=== PATIENT | female | born 1970 | race Caucasian/White ===

== ENCOUNTER → 2016-11-10 | Outpatient (CLI) | payer OTHER ==
[~2016-11-10] MED LIST: /FAMO2TA PO; /HYDR10T NG; /QUET10TA PO; ABIL2TAB PO; ABIL5TAB5 PO; ALBU17IN INH; ALDA50TA2 PO; AMLO10TA2 PO; AMLO25TA PO; AMLO5CAP PO; AMLODOPINE PO; ARTI99.0 OU; ARTIDRO OU; ARTISOL10 OP; ASPI81TA85 PO; ATEN100T PO; AUGM875T27 PO; BENA PO; BUSP10TA PO; BUSP15TA47 PO; BUSP30TA PO; BUSPAR PO; CARA1TAB2 PO; CELE10TA PO; CIPR500T3 PO; CLAR10CA3 PO; CLOTCRE3 TOP; ECOT81TA PO; EFFE150C PO; EFFE37.527 PO; EFFEXOR XR PO; FAMO1TAB11 PO; FAMO20TA PO; FAMO40TA3 PO; FERR325T3 PO; FLON0.054; HUMA100I3 SC; HYDR-3363 PO; HYDR25T PO; INSUHUMDS SC; INSULADS SC; INSULANT SC; INVE156I IM; INVO300T PO; IRON65TA PO; JANU100T PO; L-ME15TA5 PO; LEVOCETIRIZINE PO; LEVOTAB10 PO; LISI10TA4 PO; LOPR1TAB6 PO; LORA10TA2 PO; Lamictal PO; METF-415 PO; METF1000 PO; MODA100T13 PO; MULTCAP PO; MULTTAB4 PO; NAPR500T2 PO; NEUR300C PO; NEUR600T PO; NORA-BE PO; NORCOBULK PO; NYAM10003 EXT; OMEP40CA2 PO; OYSCTAB PO; PANT40TA2 PO; PEPC1TAB4 PO; QUET5TAB PO; RANI15TA PO; SPIR50TA2 PO; TAB-TAB PO; TEKT300T PO; TENO1TAB5 PO; TRAZ100T4 PO; TRAZ50TA4 PO; VENL75CA PO; VENTAER INH; VIBRYD PO; VIIB40TA PO; VIST25CA PO; VIST50CA PO; WELLTAB38 PO; ZYRT10CA PO
[2016-11-10 10:49] LABS: MEAN CORPUSCULAR HEMOGLOBIN 29.5 pg (27.0-33.0); MEAN CORPUSCULAR HGB CONC 34.4 g/dl (32.0-36.5); MEAN CORPUSCULAR VOLUME 85.9 fl (80.0-96.0); RED CELL DISTRIBUTION WIDTH 12.9 % (11.5-14.5); WHITE BLOOD COUNT 6.6 K/mm3 (4.0-10.0)
[2016-11-10 11:20] LABS: ALBUMIN 3.4 GM/DL (3.2-5.2); ALBUMIN/GLOBULIN RATIO 1.17 (1.00-1.93); ALKALINE PHOSPHATASE 75 U/L (45-117); ALT/SGPT 31 U/L (12-78); ANION GAP 9 MEQ/L (8-16); AST/SGOT 18 U/L (15-37); BILIRUBIN,TOTAL 0.4 MG/DL (0.2-1.0); BLOOD UREA NITROGEN 8 MG/DL (7-18); CALCIUM LEVEL 8.5 MG/DL (8.5-10.1); CARBON DIOXIDE LEVEL 26 MEQ/L (21-32); CHLORIDE LEVEL 108 MEQ/L (98-107); CHOLESTEROL LEVEL 178 MG/DL (<200); CREATININE FOR GFR 0.58 MG/DL (0.55-1.02); GLOMERULAR FILTRATION RATE > 60.0 (>58); GLUCOSE, FASTING 99 MG/DL (70-105); SODIUM LEVEL 143 MEQ/L (136-145); TOTAL PROTEIN 6.3 GM/DL (6.4-8.2); TRIGLYCERIDES LEVEL 60 MG/DL (<150)
== END ==
LOC: M LAB 09:53
PROVIDERS: ATTEND Nurse Practitioner Family
DX: D64.9 Anemia, unspecified (principal); E11.9 Type 2 diabetes mellitus without complications; F32.9 Major depressive disorder, single episode, unspecified; Z13.220 Encounter for screening for lipoid disorders

== ENCOUNTER → 2016-12-03 | Outpatient (REF) | payer OTHER, MEDICAID | LOC: M LAB REF 09:20 | PROVIDERS: ATTEND Physician Assistant | DX: R31.9 Hematuria, unspecified (principal) ==

== ENCOUNTER → 2017-01-04 | Outpatient (CLI) | payer OTHER, MEDICAID ==
[2017-01-04 11:11] LABS: ANION GAP 7 MEQ/L (8-16); BLOOD UREA NITROGEN 11 MG/DL (7-18); CALCIUM LEVEL 8.5 MG/DL (8.5-10.1); CARBON DIOXIDE LEVEL 29 MEQ/L (21-32); CHLORIDE LEVEL 106 MEQ/L (98-107); CREATININE FOR GFR 0.76 MG/DL (0.55-1.02); GLOMERULAR FILTRATION RATE > 60.0 (>58); GLUCOSE, FASTING 116 MG/DL (70-105); POTASSIUM SERUM 3.7 MEQ/L (3.5-5.1); SODIUM LEVEL 142 MEQ/L (136-145)
== END ==
LOC: M LAB 09:45
PROVIDERS: ATTEND Nurse Practitioner Family
DX: E11.9 Type 2 diabetes mellitus without complications (principal); E03.9 Hypothyroidism, unspecified; E55.9 Vitamin D deficiency, unspecified

== ENCOUNTER → 2017-04-10 | Outpatient (REF) | payer OTHER, MEDICAID ==
[~2017-04-10] MED LIST changes: +ABIL1TAB11 PO; -ABIL5TAB5 PO; -AUGM875T27 PO; +AUGM875T28 PO; -HYDR25T PO; +TRAZ-136 PO; -TRAZ100T4 PO; +TRAZ50TA11 PO; -TRAZ50TA4 PO
[2017-04-10 13:20] LABS: ALBUMIN 3.4 GM/DL (3.2-5.2); ALBUMIN/GLOBULIN RATIO 1.06 (1.00-1.93); ALKALINE PHOSPHATASE 63 U/L (45-117); ALT/SGPT 21 U/L (12-78); ANION GAP 7 MEQ/L (8-16); AST/SGOT 6 U/L (15-37); BILIRUBIN,TOTAL 0.4 MG/DL (0.2-1.0); BLOOD UREA NITROGEN 9 MG/DL (7-18); CALCIUM LEVEL 8.8 MG/DL (8.5-10.1); CARBON DIOXIDE LEVEL 30 MEQ/L (21-32); CHLORIDE LEVEL 105 MEQ/L (98-107); CREATININE FOR GFR 0.79 MG/DL (0.55-1.02); GLOMERULAR FILTRATION RATE > 60.0 (>58); GLUCOSE, FASTING 140 MG/DL (70-105); POTASSIUM SERUM 3.6 MEQ/L (3.5-5.1); SODIUM LEVEL 142 MEQ/L (136-145); TOTAL PROTEIN 6.6 GM/DL (6.4-8.2)
== END ==
LOC: M LAB REF 12:01
PROVIDERS: ATTEND Nurse Practitioner Family
DX: E11.9 Type 2 diabetes mellitus without complications (principal)

== ENCOUNTER → 2017-10-17 | Outpatient (REF) | payer OTHER, MEDICAID ==
[2017-10-17 13:43] LABS: MALB URINE SIEMENS 21.1 MG/L; MAU/CREAT RATIO 4.5 MCG/MG (0.0-30.0)
[2017-10-17 14:26] LABS: ESTIMATED AVERAGE GLUCOSE 140 MG/DL (60-110); HEMOGLOBIN A1c 6.5 %
== END ==
LOC: M LAB REF 11:59
DX: E11.9 Type 2 diabetes mellitus without complications (principal)
CPT/HCPCS: 84443

== ENCOUNTER → 2018-01-16 | Outpatient (REF) | payer OTHER, MEDICAID ==
[2018-01-16 14:42] LABS: ESTIMATED AVERAGE GLUCOSE 134 MG/DL (60-110); HEMOGLOBIN A1c 6.3 %
== END ==
LOC: M LAB REF 12:18
DX: E11.9 Type 2 diabetes mellitus without complications (principal)

== ENCOUNTER 2018-04-08 10:51 | Outpatient (RCR) | payer OTHER | END 2018-04-16 | LOC: M PT 10:51 | DX: Z51.89 Encounter for other specified aftercare (principal); M25.512 Pain in left shoulder; M25.562 Pain in left knee | CPT/HCPCS: 97110 ==

== ENCOUNTER → 2018-04-08 | Outpatient (REF) | payer OTHER ==
[2018-04-08 13:40] LABS: MALB URINE SIEMENS 33.6 MG/L; MAU/CREAT RATIO 6.8 MCG/MG (0.0-30.0)
[2018-04-08 14:00] LABS: ESTIMATED AVERAGE GLUCOSE 154 MG/DL (60-110)
== END ==
LOC: M LAB REF 12:12
DX: E11.9 Type 2 diabetes mellitus without complications (principal)

== ENCOUNTER 2018-04-17 14:29 | Outpatient (RCR) | payer OTHER | END 2018-05-17 | LOC: M PT 04-24 14:21 | DX: Z51.89 Encounter for other specified aftercare (principal); M25.562 Pain in left knee; M25.512 Pain in left shoulder | CPT/HCPCS: 97110 ==

== ENCOUNTER → 2018-06-25 | Outpatient (REF) | payer OTHER ==
[2018-06-25 17:35] LABS: CHLAMYDIA DNA AMPLIFICATION NEGATIVE (NEGATIVE); GC DNA AMPLIFICATION NEGATIVE (NEGATIVE)
== END ==
LOC: M SFHCWAGY 15:44
DX: Z11.3 Encounter for screening for infections with a predominantly sexual mode of transmission (principal)

== ENCOUNTER → 2018-06-25 | Outpatient (REF) | payer OTHER ==
[2018-06-27 14:15] LABS: HPV HYBRID CAPTURE II Negative (Negative)
== END ==
LOC: M SFHCWAGY 12:15
DX: Z12.4 Encounter for screening for malignant neoplasm of cervix (principal)

== ENCOUNTER → 2018-06-25 | Outpatient (CLI) | payer OTHER | LOC: M WHC 11:24 | DX: Z12.31 Encounter for screening mammogram for malignant neoplasm of breast (principal) | CPT/HCPCS: 77067 ==

== ENCOUNTER 2018-06-27 14:44 | Emergency (ER) | payer OTHER, MEDICAID ==
[2018-06-27 16:31] LABS: HEMOGLOBIN 13.3 g/dl (12.0-15.5); MEAN CORPUSCULAR HEMOGLOBIN 29.9 pg (27.0-33.0); MEAN CORPUSCULAR HGB CONC 34.1 g/dl (32.0-36.5); MEAN CORPUSCULAR VOLUME 87.6 fl (80.0-96.0); PLATELET COUNT, AUTOMATED 329 10^3/uL (150-450); RED BLOOD COUNT 4.45 10^6/uL (4.00-5.40); RED CELL DISTRIBUTION WIDTH 12.5 % (11.5-14.5); WHITE BLOOD COUNT 9.4 10^3/uL (4.0-10.0)
[2018-06-27 16:49] LABS: ANION GAP 9 MEQ/L (8-16); BLOOD UREA NITROGEN 8 MG/DL (7-18); CALCIUM LEVEL 9.3 MG/DL (8.5-10.1); CARBON DIOXIDE LEVEL 29 MEQ/L (21-32); CHLORIDE LEVEL 102 MEQ/L (98-107); CREATININE FOR GFR 0.74 MG/DL (0.55-1.30); GLOMERULAR FILTRATION RATE > 60.0 (>58); GLUCOSE, FASTING 109 MG/DL (70-100); POTASSIUM SERUM 3.2 MEQ/L (3.5-5.1); SODIUM LEVEL 140 MEQ/L (136-145)
[2018-06-27] MEDS: POTASSIUM CHLORIDE 10 MEQ SR TABLET PO (17:09)
== END 2018-06-27 17:11 | disposition home or self-care (01) ==
LOC: M ED 14:44
DX: E87.6 Hypokalemia (principal); R20.2 Paresthesia of skin; J45.909 Unspecified asthma, uncomplicated; E11.9 Type 2 diabetes mellitus without complications; E07.9 Disorder of thyroid, unspecified; G47.33 Obstructive sleep apnea (adult) (pediatric); K58.9 Irritable bowel syndrome, unspecified; Z88.1 Allergy status to other antibiotic agents; Z88.8 Allergy status to other drugs, medicaments and biological substances; Z88.2 Allergy status to sulfonamides; Z79.4 Long term (current) use of insulin; Z79.890 Hormone replacement therapy; Z79.899 Other long term (current) drug therapy
CPT/HCPCS: 72110

== ENCOUNTER → 2018-06-30 | Outpatient (REF) | payer OTHER ==
[2018-06-30 22:07] LABS: APPEARANCE, URINE HAZY (CLEAR); BACTERIA, URINE AUTO NEGATIVE (NEGATIVE); BILIRUBIN, URINE AUTO NEGATIVE (NEGATIVE); BLOOD, URINE BLOOD NEGATIVE (NEGATIVE); COLOR, URINE YELLOW (YELLOW); GLUCOSE, URINE (UA) AUTO 3+ mg/dL (NEGATIVE); KETONE, URINE AUTO NEGATIVE (NEGATIVE); LEUKOCYTE ESTERASE, URINE AUTO NEGATIVE (NEGATIVE); MUCUS, URINE SMALL (NEGATIVE); NITRITE, URINE AUTO NEGATIVE (NEGATIVE); PROTEIN, URINE AUTO NEGATIVE (NEGATIVE); RBC, URINE AUTO 1 /HPF (0-3); SPECIFIC GRAVITY URINE AUTO 1.029 (1.002-1.035); SQUAMOUS EPITHELIAL CELL UR AU 6 /HPF (0-6); UROBILINOGEN, URINE AUTO 0.2 mg/dL (0.0-2.0); WBC, URINE AUTO 2 /HPF (0-3)
== END ==
LOC: M LAB REF 10:32
DX: N39.0 Urinary tract infection, site not specified (principal)

== ENCOUNTER 2018-07-08 13:33 | Inpatient (IN) | payer MEDICAID, OTHER ==
[2018-07-08 14:36] LABS: HEMATOCRIT 39.5 % (36.0-47.0); HEMOGLOBIN 13.7 g/dl (12.0-15.5); MEAN CORPUSCULAR HEMOGLOBIN 29.7 pg (27.0-33.0); MEAN CORPUSCULAR HGB CONC 34.7 g/dl (32.0-36.5); MEAN CORPUSCULAR VOLUME 85.5 fl (80.0-96.0); PLATELET COUNT, AUTOMATED 365 10^3/uL (150-450); RED BLOOD COUNT 4.62 10^6/uL (4.00-5.40); RED CELL DISTRIBUTION WIDTH 12.3 % (11.5-14.5)
[2018-07-08 14:48] LABS: AMPHETAMINES LEVEL URINE NEGATIVE (NEGATIVE); BARBITURATES URINE NEGATIVE (NEGATIVE); BENZODIAZEPINES URINE NEGATIVE (NEGATIVE); CANNABINOIDS URINE NEGATIVE (NEGATIVE); COCAINE METABOLITE URINE NEGATIVE (NEGATIVE); METHADONE URINE NEGATIVE (NEGATIVE); OPIATES URINE NEGATIVE (NEGATIVE); PHENCYCLIDINE URINE NEGATIVE (NEGATIVE)
[2018-07-08 15:03] LABS: CONTROL LINE HCG INT CTR LINE PRESENT; HCG, SERUM QUALITATIVE NEGATIVE (NEGATIVE)
[2018-07-08 15:04] LABS: ALBUMIN 3.9 GM/DL (3.2-5.2); ALBUMIN/GLOBULIN RATIO 1.18 (1.00-1.93); ALKALINE PHOSPHATASE 69 U/L (45-117); ALT/SGPT 26 U/L (12-78); ANION GAP 8 MEQ/L (8-16); AST/SGOT 13 U/L (7-37); BILIRUBIN,DIRECT 0.2 MG/DL (0.0-0.2); BILIRUBIN,TOTAL 0.5 MG/DL (0.2-1.0); BLOOD UREA NITROGEN 7 MG/DL (7-18); CALCIUM LEVEL 9.6 MG/DL (8.5-10.1); CARBON DIOXIDE LEVEL 29 MEQ/L (21-32); CHLORIDE LEVEL 103 MEQ/L (98-107); CREATININE FOR GFR 0.76 MG/DL (0.55-1.30); GLOMERULAR FILTRATION RATE > 60.0 (>58); GLUCOSE, FASTING 115 MG/DL (70-100); POTASSIUM SERUM 3.3 MEQ/L (3.5-5.1); SODIUM LEVEL 140 MEQ/L (136-145); TOTAL PROTEIN 7.2 GM/DL (6.4-8.2)
[2018-07-08 15:10] LABS: ETHYL ALCOHOL (ETHANOL) < 0.003 % (0.000-0.010)
[2018-07-08 15:10] LABS: ACETAMINOPHEN LEVEL < 2.0 UG/ML (10.0-30.0); SALICYLATE LEVEL < 1.7 MG/DL (5.0-30.0)
[2018-07-08] MEDS: POTASSIUM CHLORIDE 10 MEQ SR TABLET PO (16:16)
[2018-07-08] MEDS ORDERED: MOM 30ML SUSPENSION UDC PO (20:00)
[2018-07-08] MEDS ORDERED: MAALOX 30 ML SUSP *UDC PO (20:00)
[2018-07-08] MEDS: NYSTATIN 100,000 UNITS/GM TOPICAL PWD 15 GM TOP (21:00)
[2018-07-08] MEDS ORDERED: TOUJEO 300 UNIT/ML SC (21:00)
[2018-07-08] MEDS: KETOCONAZOLE 2% CREAM EXT (21:00)
[2018-07-08] MEDS: DEXTRAN/HYPROMELLOSE OPHTH SOLN 15 ML(GENTEAL TEARS) OU (21:00)
[2018-07-08] MEDS: OMEGA-3 1000MG CAPSULE PO (21:00)
[2018-07-08] MEDS: GABAPENTIN 300 MG CAP PO (21:00)
[2018-07-09] MEDS: traZODone 50 MG TAB PO ×2 (01:14→22:54)
[2018-07-09] MEDS: ZIPRASIDONE 20MG CAPSULE (GEODON) PO ×2 (01:15→10:06)
[2018-07-09] MEDS: AUGMENTIN 875 MG TAB PO ×3 (01:15→22:52)
[2018-07-09] MEDS: CETIRIZINE (ZyrTEC) 10 MG TAB PO ×2 (01:15→22:58)
[2018-07-09] MEDS: ACETAMINOPHEN TAB 650MG DOSE (2X325MG) PO ×2 (01:15→22:56)
[2018-07-09 01:24] LABS: BEDSIDE GLUCOSE 141 MG/DL (70-105)
[2018-07-09] MEDS: LEVOTHYROXINE 88MCG TABLET (0.088 MG) PO (06:04)
[2018-07-09 06:35] LABS: BEDSIDE GLUCOSE 109 MG/DL (70-105)
[2018-07-09] MEDS: DEXTRAN/HYPROMELLOSE OPHTH SOLN 15 ML(GENTEAL TEARS) OU ×4 (09:56→22:55)
[2018-07-09] MEDS: FLUTICASONE PROP 0.05% NASAL SPRAY 16 GM (FLONASE) (09:56)
[2018-07-09] MEDS: GABAPENTIN 300 MG CAP PO ×2 (09:57→22:53)
[2018-07-09] MEDS: ASPIRIN 81 MG ENTERIC TAB PO (09:57)
[2018-07-09] MEDS: hydroCHLOROthiazide 25 MG TAB PO (09:57)
[2018-07-09] MEDS: FOLIC ACID 1 MG TAB PO (09:57)
[2018-07-09] MEDS: VITAMIN D 1,000 INTERNATIONAL UNITS TABLET PO (09:59)
[2018-07-09] MEDS: OMEGA-3 1000MG CAPSULE PO ×2 (09:59→22:55)
[2018-07-09] MEDS: METOPROLOL SUCC (TopROL XL) 50MG **XL** TAB PO (09:59)
[2018-07-09] MEDS: LOSARTAN 50 MG TAB PO (10:00)
[2018-07-09] MEDS ORDERED: ALBUTEROL 90 MCG/ACT 8GM HFA INHALER INH (10:00)
[2018-07-09] MEDS: NYSTATIN 100,000 UNITS/GM TOPICAL PWD 15 GM TOP ×2 (10:07→22:55)
[2018-07-09] MEDS: KETOCONAZOLE 2% CREAM EXT ×2 (10:07→22:54)
[2018-07-09] MEDS: FAMOTIDINE 20 MG TAB PO ×2 (10:10→22:53)
[2018-07-09] MEDS: LURASIDONE HCL 40 MG TAB (LATUDA) PO (17:09)
[2018-07-09] MEDS: LORazepam 1 MG TAB PO ×2 (22:53)
[2018-07-10] MEDS: LEVOTHYROXINE 88MCG TABLET (0.088 MG) PO (06:10)
[2018-07-10 06:42] LABS: BEDSIDE GLUCOSE 125 MG/DL (70-105)
[2018-07-10] MEDS: GABAPENTIN 300 MG CAP PO ×2 (09:23→21:36)
[2018-07-10] MEDS: OMEGA-3 1000MG CAPSULE PO ×2 (09:23→21:37)
[2018-07-10] MEDS: VITAMIN D 1,000 INTERNATIONAL UNITS TABLET PO (09:23)
[2018-07-10] MEDS: hydroCHLOROthiazide 25 MG TAB PO (09:23)
[2018-07-10] MEDS: AUGMENTIN 875 MG TAB PO ×2 (09:23→21:36)
[2018-07-10] MEDS: MONTELUKAST 10 MG TAB PO (09:23)
[2018-07-10] MEDS: FOLIC ACID 1 MG TAB PO (09:24)
[2018-07-10] MEDS: LURASIDONE HCL 40 MG TAB (LATUDA) PO ×2 (09:24→17:55)
[2018-07-10] MEDS: FAMOTIDINE 20 MG TAB PO ×2 (09:24→21:36)
[2018-07-10] MEDS: ASPIRIN 81 MG ENTERIC TAB PO (09:24)
[2018-07-10] MEDS: FERROUS SULFATE 325MG TAB PO (09:24)
[2018-07-10] MEDS: METOPROLOL SUCC (TopROL XL) 50MG **XL** TAB PO (09:24)
[2018-07-10] MEDS: LOSARTAN 50 MG TAB PO (09:24)
[2018-07-10] MEDS: DEXTRAN/HYPROMELLOSE OPHTH SOLN 15 ML(GENTEAL TEARS) OU ×4 (09:25→22:02)
[2018-07-10] MEDS: FLUTICASONE PROP 0.05% NASAL SPRAY 16 GM (FLONASE) (09:25)
[2018-07-10] MEDS: KETOCONAZOLE 2% CREAM EXT ×2 (09:25→21:37)
[2018-07-10] MEDS: NYSTATIN 100,000 UNITS/GM TOPICAL PWD 15 GM TOP ×2 (09:26→21:38)
[2018-07-10] MEDS: CETIRIZINE (ZyrTEC) 10 MG TAB PO (21:36)
[2018-07-10] MEDS: traZODone 50 MG TAB PO (21:37)
[2018-07-10] MEDS: TOUJEO 300 UNIT/ML SC (22:13)
[2018-07-11] MEDS: LEVOTHYROXINE 88MCG TABLET (0.088 MG) PO (06:13)
[2018-07-11 06:26] LABS: BEDSIDE GLUCOSE 124 MG/DL (70-105)
[2018-07-11] MEDS: DEXTRAN/HYPROMELLOSE OPHTH SOLN 15 ML(GENTEAL TEARS) OU ×4 (08:26→21:00)
[2018-07-11] MEDS: FAMOTIDINE 20 MG TAB PO ×2 (08:26→21:46)
[2018-07-11] MEDS: AUGMENTIN 875 MG TAB PO ×2 (08:26→21:45)
[2018-07-11] MEDS: FLUTICASONE PROP 0.05% NASAL SPRAY 16 GM (FLONASE) (08:26)
[2018-07-11] MEDS: VITAMIN D 1,000 INTERNATIONAL UNITS TABLET PO (08:26)
[2018-07-11] MEDS: LURASIDONE HCL 40 MG TAB (LATUDA) PO ×2 (08:27→17:42)
[2018-07-11] MEDS: MONTELUKAST 10 MG TAB PO (08:27)
[2018-07-11] MEDS: NYSTATIN 100,000 UNITS/GM TOPICAL PWD 15 GM TOP ×2 (08:27→21:00)
[2018-07-11] MEDS: LOSARTAN 50 MG TAB PO (08:28)
[2018-07-11] MEDS: hydroCHLOROthiazide 25 MG TAB PO (08:28)
[2018-07-11] MEDS: GABAPENTIN 300 MG CAP PO ×2 (08:28→21:45)
[2018-07-11] MEDS: ASPIRIN 81 MG ENTERIC TAB PO (08:28)
[2018-07-11] MEDS: KETOCONAZOLE 2% CREAM EXT ×2 (08:29→21:00)
[2018-07-11] MEDS: OMEGA-3 1000MG CAPSULE PO ×2 (08:29→21:45)
[2018-07-11] MEDS: FOLIC ACID 1 MG TAB PO (08:29)
[2018-07-11] MEDS: METOPROLOL SUCC (TopROL XL) 50MG **XL** TAB PO (08:30)
[2018-07-11] MEDS: TOUJEO 300 UNIT/ML SC ×2 (08:32→21:47)
[2018-07-11 08:53] LABS: ANION GAP 7 MEQ/L (8-16); BLOOD UREA NITROGEN 7 MG/DL (7-18); CALCIUM LEVEL 9.3 MG/DL (8.5-10.1); CARBON DIOXIDE LEVEL 29 MEQ/L (21-32); CHLORIDE LEVEL 105 MEQ/L (98-107); GLOMERULAR FILTRATION RATE > 60.0 (>58); GLUCOSE, FASTING 122 MG/DL (70-100); POTASSIUM SERUM 3.8 MEQ/L (3.5-5.1); SODIUM LEVEL 141 MEQ/L (136-145)
[2018-07-11 17:48] LABS: BEDSIDE GLUCOSE 145 MG/DL (70-105)
[2018-07-11] MEDS: CETIRIZINE (ZyrTEC) 10 MG TAB PO (21:45)
[2018-07-11] MEDS: DOXEPIN 25 MG CAP PO (21:45)
[2018-07-12] MEDS: ACETAMINOPHEN TAB 650MG DOSE (2X325MG) PO ×2 (02:50→12:38)
[2018-07-12] MEDS: LEVOTHYROXINE 88MCG TABLET (0.088 MG) PO (06:20)
[2018-07-12] MEDS: DEXTRAN/HYPROMELLOSE OPHTH SOLN 15 ML(GENTEAL TEARS) OU ×4 (09:49→20:26)
[2018-07-12] MEDS: NYSTATIN 100,000 UNITS/GM TOPICAL PWD 15 GM TOP ×2 (09:49→20:26)
[2018-07-12] MEDS: FLUTICASONE PROP 0.05% NASAL SPRAY 16 GM (FLONASE) (09:49)
[2018-07-12] MEDS: MONTELUKAST 10 MG TAB PO (09:50)
[2018-07-12] MEDS: FOLIC ACID 1 MG TAB PO (09:50)
[2018-07-12] MEDS: KETOCONAZOLE 2% CREAM EXT ×2 (09:50→20:26)
[2018-07-12] MEDS: hydroCHLOROthiazide 25 MG TAB PO (09:50)
[2018-07-12] MEDS: LOSARTAN 50 MG TAB PO (09:50)
[2018-07-12] MEDS: METOPROLOL SUCC (TopROL XL) 50MG **XL** TAB PO (09:50)
[2018-07-12] MEDS: AUGMENTIN 875 MG TAB PO ×2 (09:50→20:26)
[2018-07-12] MEDS: OMEGA-3 1000MG CAPSULE PO ×2 (09:50→20:27)
[2018-07-12] MEDS: FERROUS SULFATE 325MG TAB PO (09:51)
[2018-07-12] MEDS: VITAMIN D 1,000 INTERNATIONAL UNITS TABLET PO (09:51)
[2018-07-12] MEDS: FAMOTIDINE 20 MG TAB PO ×2 (09:51→20:26)
[2018-07-12] MEDS: GABAPENTIN 300 MG CAP PO ×2 (09:51→20:26)
[2018-07-12] MEDS: ASPIRIN 81 MG ENTERIC TAB PO (09:51)
[2018-07-12] MEDS: TOUJEO 300 UNIT/ML SC ×2 (10:41→20:31)
[2018-07-12 16:44] LABS: BEDSIDE GLUCOSE 142 MG/DL (70-105)
[2018-07-12] MEDS: LURASIDONE HCL 40 MG TAB (LATUDA) PO (17:46)
[2018-07-12] MEDS: CETIRIZINE (ZyrTEC) 10 MG TAB PO (20:25)
[2018-07-12] MEDS: DOXEPIN 25 MG CAP PO (20:25)
[2018-07-13] MEDS: LEVOTHYROXINE 88MCG TABLET (0.088 MG) PO (06:00)
[2018-07-13 06:34] LABS: BEDSIDE GLUCOSE 103 MG/DL (70-105)
[2018-07-13] MEDS: FOLIC ACID 1 MG TAB PO (09:56)
[2018-07-13] MEDS: METOPROLOL SUCC (TopROL XL) 50MG **XL** TAB PO (09:57)
[2018-07-13] MEDS: GABAPENTIN 300 MG CAP PO ×2 (09:57→20:02)
[2018-07-13] MEDS: VITAMIN D 1,000 INTERNATIONAL UNITS TABLET PO (09:57)
[2018-07-13] MEDS: MONTELUKAST 10 MG TAB PO (09:57)
[2018-07-13] MEDS: ASPIRIN 81 MG ENTERIC TAB PO (09:57)
[2018-07-13] MEDS: LOSARTAN 50 MG TAB PO (09:57)
[2018-07-13] MEDS: AUGMENTIN 875 MG TAB PO ×2 (09:57→20:02)
[2018-07-13] MEDS: FAMOTIDINE 20 MG TAB PO ×2 (09:57→20:02)
[2018-07-13] MEDS: hydroCHLOROthiazide 25 MG TAB PO (09:57)
[2018-07-13] MEDS: OMEGA-3 1000MG CAPSULE PO ×2 (09:57→20:02)
[2018-07-13] MEDS: FLUTICASONE PROP 0.05% NASAL SPRAY 16 GM (FLONASE) (09:58)
[2018-07-13] MEDS: NYSTATIN 100,000 UNITS/GM TOPICAL PWD 15 GM TOP ×2 (09:58→20:06)
[2018-07-13] MEDS: KETOCONAZOLE 2% CREAM EXT ×2 (09:58→20:06)
[2018-07-13] MEDS: TOUJEO 300 UNIT/ML SC ×2 (09:58→20:01)
[2018-07-13] MEDS: DEXTRAN/HYPROMELLOSE OPHTH SOLN 15 ML(GENTEAL TEARS) OU ×4 (09:58→20:05)
[2018-07-13] MEDS: FLUCONAZOLE 100 MG TAB PO (16:49)
[2018-07-13 17:26] LABS: BEDSIDE GLUCOSE 122 MG/DL (70-105)
[2018-07-13] MEDS: LURASIDONE HCL 40 MG TAB (LATUDA) PO (17:55)
[2018-07-13] MEDS: CETIRIZINE (ZyrTEC) 10 MG TAB PO (20:02)
[2018-07-13] MEDS: DOXEPIN 25 MG CAP PO (20:02)
[2018-07-13] MEDS: ACETAMINOPHEN TAB 650MG DOSE (2X325MG) PO (20:04)
[2018-07-14] MEDS: LEVOTHYROXINE 88MCG TABLET (0.088 MG) PO (05:56)
[2018-07-14 06:20] LABS: BEDSIDE GLUCOSE 108 MG/DL (70-105)
[2018-07-14] MEDS: GABAPENTIN 300 MG CAP PO ×2 (09:56→21:35)
[2018-07-14] MEDS: OMEGA-3 1000MG CAPSULE PO ×2 (09:56→21:36)
[2018-07-14] MEDS: VITAMIN D 1,000 INTERNATIONAL UNITS TABLET PO (09:56)
[2018-07-14] MEDS: FOLIC ACID 1 MG TAB PO (09:57)
[2018-07-14] MEDS: AUGMENTIN 875 MG TAB PO ×2 (09:57→21:35)
[2018-07-14] MEDS: ASPIRIN 81 MG ENTERIC TAB PO (09:57)
[2018-07-14] MEDS: FAMOTIDINE 20 MG TAB PO ×2 (09:57→21:36)
[2018-07-14] MEDS: MONTELUKAST 10 MG TAB PO (09:57)
[2018-07-14] MEDS: FERROUS SULFATE 325MG TAB PO (09:57)
[2018-07-14] MEDS: NYSTATIN 100,000 UNITS/GM TOPICAL PWD 15 GM TOP ×2 (09:58→21:34)
[2018-07-14] MEDS: FLUTICASONE PROP 0.05% NASAL SPRAY 16 GM (FLONASE) (09:58)
[2018-07-14] MEDS: KETOCONAZOLE 2% CREAM EXT ×2 (09:58→21:35)
[2018-07-14] MEDS: DEXTRAN/HYPROMELLOSE OPHTH SOLN 15 ML(GENTEAL TEARS) OU ×4 (09:58→21:35)
[2018-07-14] MEDS: TOUJEO 300 UNIT/ML SC ×2 (10:01→21:52)
[2018-07-14] MEDS: LOSARTAN 50 MG TAB PO (10:01)
[2018-07-14] MEDS: METOPROLOL SUCC (TopROL XL) 50MG **XL** TAB PO (10:02)
[2018-07-14] MEDS: hydroCHLOROthiazide 25 MG TAB PO (10:02)
[2018-07-14] MEDS: ACETAMINOPHEN TAB 650MG DOSE (2X325MG) PO (11:19)
[2018-07-14] MEDS: LURASIDONE HCL 40 MG TAB (LATUDA) PO (17:11)
[2018-07-14] MEDS: LORazepam 1 MG TAB PO (21:35)
[2018-07-14] MEDS: DOXEPIN 25 MG CAP PO (21:35)
[2018-07-14] MEDS: CETIRIZINE (ZyrTEC) 10 MG TAB PO (21:35)
[2018-07-15] MEDS: LEVOTHYROXINE 88MCG TABLET (0.088 MG) PO (06:10)
[2018-07-15 06:33] LABS: BEDSIDE GLUCOSE 134 MG/DL (70-105)
[2018-07-15] MEDS: ACETAMINOPHEN TAB 650MG DOSE (2X325MG) PO (06:58)
[2018-07-15] MEDS: KETOCONAZOLE 2% CREAM EXT ×2 (09:00→21:00)
[2018-07-15] MEDS: FLUTICASONE PROP 0.05% NASAL SPRAY 16 GM (FLONASE) (09:14)
[2018-07-15] MEDS: DEXTRAN/HYPROMELLOSE OPHTH SOLN 15 ML(GENTEAL TEARS) OU ×4 (09:14→21:00)
[2018-07-15] MEDS: GABAPENTIN 300 MG CAP PO ×2 (09:15→21:02)
[2018-07-15] MEDS: OMEGA-3 1000MG CAPSULE PO ×2 (09:15→21:02)
[2018-07-15] MEDS: NYSTATIN 100,000 UNITS/GM TOPICAL PWD 15 GM TOP ×2 (09:15→21:00)
[2018-07-15] MEDS: ASPIRIN 81 MG ENTERIC TAB PO (09:15)
[2018-07-15] MEDS: VITAMIN D 1,000 INTERNATIONAL UNITS TABLET PO (09:15)
[2018-07-15] MEDS: MONTELUKAST 10 MG TAB PO (09:15)
[2018-07-15] MEDS: LOSARTAN 50 MG TAB PO (09:15)
[2018-07-15] MEDS: AUGMENTIN 875 MG TAB PO (09:15)
[2018-07-15] MEDS: METOPROLOL SUCC (TopROL XL) 50MG **XL** TAB PO (09:16)
[2018-07-15] MEDS: FAMOTIDINE 20 MG TAB PO ×2 (09:16→21:02)
[2018-07-15] MEDS: FOLIC ACID 1 MG TAB PO (09:16)
[2018-07-15] MEDS: TOUJEO 300 UNIT/ML SC ×2 (09:24→21:06)
[2018-07-15] MEDS: hydroCHLOROthiazide 25 MG TAB PO (09:28)
[2018-07-15 16:57] LABS: BEDSIDE GLUCOSE 180 MG/DL (70-105)
[2018-07-15] MEDS: LURASIDONE HCL 40 MG TAB (LATUDA) PO (17:58)
[2018-07-15] MEDS: CETIRIZINE (ZyrTEC) 10 MG TAB PO (21:02)
[2018-07-15] MEDS: DOXEPIN 25 MG CAP PO (21:02)
[2018-07-15] MEDS: LORazepam 2 MG TAB PO (21:46)
[2018-07-15] MEDS ORDERED: hydrOXYzine 50 MG TAB PO (22:00)
[2018-07-16] MEDS: LEVOTHYROXINE 88MCG TABLET (0.088 MG) PO (05:46)
[2018-07-16] MEDS: ACETAMINOPHEN TAB 650MG DOSE (2X325MG) PO (05:46)
[2018-07-16 05:53] LABS: BEDSIDE GLUCOSE 144 MG/DL (70-105)
[2018-07-16] MEDS: hydrOXYzine 50 MG TAB PO ×2 (06:15→20:01)
[2018-07-16] MEDS: KETOCONAZOLE 2% CREAM EXT ×2 (09:00→21:00)
[2018-07-16] MEDS: FOLIC ACID 1 MG TAB PO (09:53)
[2018-07-16] MEDS: METOPROLOL SUCC (TopROL XL) 50MG **XL** TAB PO (09:54)
[2018-07-16] MEDS: GABAPENTIN 300 MG CAP PO ×2 (09:54→21:52)
[2018-07-16] MEDS: VITAMIN D 1,000 INTERNATIONAL UNITS TABLET PO (09:54)
[2018-07-16] MEDS: FERROUS SULFATE 325MG TAB PO (09:54)
[2018-07-16] MEDS: LOSARTAN 50 MG TAB PO (09:55)
[2018-07-16] MEDS: OMEGA-3 1000MG CAPSULE PO ×2 (09:55→21:52)
[2018-07-16] MEDS: ASPIRIN 81 MG ENTERIC TAB PO (09:55)
[2018-07-16] MEDS: MONTELUKAST 10 MG TAB PO (09:55)
[2018-07-16] MEDS: hydroCHLOROthiazide 25 MG TAB PO (09:55)
[2018-07-16] MEDS: NYSTATIN 100,000 UNITS/GM TOPICAL PWD 15 GM TOP ×2 (09:56→21:00)
[2018-07-16] MEDS: PILL CRUSHER/CUTTER 1 EACH XX ×2 (09:56→21:54)
[2018-07-16] MEDS: FAMOTIDINE 20 MG TAB PO ×2 (09:56→21:52)
[2018-07-16] MEDS: FLUTICASONE PROP 0.05% NASAL SPRAY 16 GM (FLONASE) (09:56)
[2018-07-16] MEDS: DEXTRAN/HYPROMELLOSE OPHTH SOLN 15 ML(GENTEAL TEARS) OU ×4 (09:56→21:52)
[2018-07-16] MEDS: TOUJEO 300 UNIT/ML SC ×2 (09:59→21:53)
[2018-07-16] MEDS: LURASIDONE HCL 40 MG TAB (LATUDA) PO (17:12)
[2018-07-16 17:14] LABS: BEDSIDE GLUCOSE 139 MG/DL (70-105)
[2018-07-16] MEDS: CETIRIZINE (ZyrTEC) 10 MG TAB PO (21:52)
[2018-07-16] MEDS: DOXEPIN 25 MG CAP PO (21:52)
[2018-07-17] MEDS: LEVOTHYROXINE 88MCG TABLET (0.088 MG) PO (05:09)
[2018-07-17] MEDS: ACETAMINOPHEN TAB 650MG DOSE (2X325MG) PO ×2 (05:09→23:31)
[2018-07-17 05:25] LABS: BEDSIDE GLUCOSE 153 MG/DL (70-105)
[2018-07-17] MEDS ORDERED: **PENDING PPD ENTRY XX (09:00)
[2018-07-17] MEDS: KETOCONAZOLE 2% CREAM EXT ×2 (09:00→21:00)
[2018-07-17] MEDS: MONTELUKAST 10 MG TAB PO (09:40)
[2018-07-17] MEDS: GABAPENTIN 300 MG CAP PO ×2 (09:40→21:59)
[2018-07-17] MEDS: LORazepam 1 MG TAB PO (09:41)
[2018-07-17] MEDS: hydroCHLOROthiazide 25 MG TAB PO (09:41)
[2018-07-17] MEDS: DEXTRAN/HYPROMELLOSE OPHTH SOLN 15 ML(GENTEAL TEARS) OU ×4 (09:42→21:58)
[2018-07-17] MEDS: PILL CRUSHER/CUTTER 1 EACH XX ×2 (09:42→21:57)
[2018-07-17] MEDS: FLUTICASONE PROP 0.05% NASAL SPRAY 16 GM (FLONASE) (09:42)
[2018-07-17] MEDS: FAMOTIDINE 20 MG TAB PO ×2 (09:42→21:58)
[2018-07-17] MEDS: FOLIC ACID 1 MG TAB PO (09:43)
[2018-07-17] MEDS: VITAMIN D 1,000 INTERNATIONAL UNITS TABLET PO (09:43)
[2018-07-17] MEDS: ASPIRIN 81 MG ENTERIC TAB PO (09:44)
[2018-07-17] MEDS: OMEGA-3 1000MG CAPSULE PO ×2 (09:44→21:57)
[2018-07-17] MEDS: METOPROLOL SUCC (TopROL XL) 50MG **XL** TAB PO (09:44)
[2018-07-17] MEDS: LOSARTAN 50 MG TAB PO (09:45)
[2018-07-17] MEDS: TOUJEO 300 UNIT/ML SC ×2 (09:48→21:59)
[2018-07-17] MEDS: NYSTATIN 100,000 UNITS/GM TOPICAL PWD 15 GM TOP ×2 (13:00→21:58)
[2018-07-17] MEDS ORDERED: TUBERCULIN PPD 5 UNITS/0.1 ML ID (15:15)
[2018-07-17] MEDS: TUBERCULIN PPD 5 UNITS/0.1 ML ID (16:29)
[2018-07-17] MEDS: hydrOXYzine 50 MG TAB PO ×2 (16:30→22:50)
[2018-07-17 16:42] LABS: BEDSIDE GLUCOSE 115 MG/DL (70-105)
[2018-07-17] MEDS: LURASIDONE 20 MG TAB (LATUDA) PO (18:05)
[2018-07-17] MEDS: CETIRIZINE (ZyrTEC) 10 MG TAB PO (21:58)
[2018-07-17] MEDS: DOXEPIN 25 MG CAP PO (21:59)
[2018-07-18] MEDS: LEVOTHYROXINE 88MCG TABLET (0.088 MG) PO (06:33)
[2018-07-18 06:37] LABS: BEDSIDE GLUCOSE 135 MG/DL (70-105)
[2018-07-18] MEDS: FLUTICASONE PROP 0.05% NASAL SPRAY 16 GM (FLONASE) (08:46)
[2018-07-18] MEDS: NYSTATIN 100,000 UNITS/GM TOPICAL PWD 15 GM TOP ×2 (08:46→21:52)
[2018-07-18] MEDS: FOLIC ACID 1 MG TAB PO (08:47)
[2018-07-18] MEDS: METOPROLOL SUCC (TopROL XL) 50MG **XL** TAB PO (08:47)
[2018-07-18] MEDS: hydroCHLOROthiazide 25 MG TAB PO (08:47)
[2018-07-18] MEDS: MONTELUKAST 10 MG TAB PO (08:47)
[2018-07-18] MEDS: GABAPENTIN 300 MG CAP PO ×2 (08:47→21:42)
[2018-07-18] MEDS: LOSARTAN 50 MG TAB PO (08:47)
[2018-07-18] MEDS: ASPIRIN 81 MG ENTERIC TAB PO (08:47)
[2018-07-18] MEDS: FERROUS SULFATE 325MG TAB PO (08:47)
[2018-07-18] MEDS: VITAMIN D 1,000 INTERNATIONAL UNITS TABLET PO (08:48)
[2018-07-18] MEDS: FAMOTIDINE 20 MG TAB PO ×2 (08:48→21:44)
[2018-07-18] MEDS: OMEGA-3 1000MG CAPSULE PO ×2 (08:48→21:43)
[2018-07-18] MEDS: TOUJEO 300 UNIT/ML SC ×2 (08:48→21:50)
[2018-07-18] MEDS: PILL CRUSHER/CUTTER 1 EACH XX (08:49)
[2018-07-18] MEDS: KETOCONAZOLE 2% CREAM EXT ×2 (08:49→21:00)
[2018-07-18] MEDS: DEXTRAN/HYPROMELLOSE OPHTH SOLN 15 ML(GENTEAL TEARS) OU ×4 (08:49→21:51)
[2018-07-18] MEDS: hydrOXYzine 50 MG TAB PO ×2 (15:43→21:47)
[2018-07-18 17:16] LABS: BEDSIDE GLUCOSE 147 MG/DL (70-105)
[2018-07-18] MEDS: LURASIDONE 20 MG TAB (LATUDA) PO (17:47)
[2018-07-18] MEDS: clonazePAM 0.5 MG TAB PO (21:42)
[2018-07-18] MEDS: DOXEPIN 25 MG CAP PO (21:46)
[2018-07-18] MEDS: CETIRIZINE (ZyrTEC) 10 MG TAB PO (21:47)
[2018-07-19] MEDS: LEVOTHYROXINE 88MCG TABLET (0.088 MG) PO (06:00)
[2018-07-19 06:06] LABS: BEDSIDE GLUCOSE 136 MG/DL (70-105)
[2018-07-19] MEDS: hydrOXYzine 50 MG TAB PO ×2 (06:29→15:18)
[2018-07-19] MEDS: hydroCHLOROthiazide 25 MG TAB PO (08:38)
[2018-07-19] MEDS: OMEGA-3 1000MG CAPSULE PO ×2 (08:38→20:48)
[2018-07-19] MEDS: FOLIC ACID 1 MG TAB PO (08:38)
[2018-07-19] MEDS: NYSTATIN 100,000 UNITS/GM TOPICAL PWD 15 GM TOP ×2 (08:38→20:49)
[2018-07-19] MEDS: FLUTICASONE PROP 0.05% NASAL SPRAY 16 GM (FLONASE) (08:38)
[2018-07-19] MEDS: PILL CRUSHER/CUTTER 1 EACH XX (08:38)
[2018-07-19] MEDS: DEXTRAN/HYPROMELLOSE OPHTH SOLN 15 ML(GENTEAL TEARS) OU ×4 (08:38→20:49)
[2018-07-19] MEDS: MONTELUKAST 10 MG TAB PO (08:39)
[2018-07-19] MEDS: ASPIRIN 81 MG ENTERIC TAB PO (08:39)
[2018-07-19] MEDS: FAMOTIDINE 20 MG TAB PO ×2 (08:39→20:46)
[2018-07-19] MEDS: LOSARTAN 50 MG TAB PO (08:39)
[2018-07-19] MEDS: VITAMIN D 1,000 INTERNATIONAL UNITS TABLET PO (08:39)
[2018-07-19] MEDS: GABAPENTIN 300 MG CAP PO ×2 (08:39→20:46)
[2018-07-19] MEDS: METOPROLOL SUCC (TopROL XL) 50MG **XL** TAB PO (08:39)
[2018-07-19] MEDS: TOUJEO 300 UNIT/ML SC ×2 (08:42→20:48)
[2018-07-19] MEDS: KETOCONAZOLE 2% CREAM EXT ×2 (08:45→20:48)
[2018-07-19] MEDS ORDERED: PPD DOCUMENTATION ENTRY MISC XX (10:00)
[2018-07-19] MEDS: PPD DOCUMENTATION ENTRY MISC XX (16:02)
[2018-07-19 17:03] LABS: BEDSIDE GLUCOSE 139 MG/DL (70-105)
[2018-07-19] MEDS: LURASIDONE 20 MG TAB (LATUDA) PO (17:55)
[2018-07-19] MEDS: clonazePAM 1 MG TAB PO (20:46)
[2018-07-19] MEDS: CETIRIZINE (ZyrTEC) 10 MG TAB PO (20:46)
[2018-07-20] MEDS: LEVOTHYROXINE 88MCG TABLET (0.088 MG) PO (06:09)
[2018-07-20] MEDS: ACETAMINOPHEN TAB 650MG DOSE (2X325MG) PO (06:20)
[2018-07-20] MEDS: hydrOXYzine 50 MG TAB PO (06:21)
[2018-07-20] MEDS: GABAPENTIN 300 MG CAP PO ×2 (09:12→21:21)
[2018-07-20] MEDS: FOLIC ACID 1 MG TAB PO (09:12)
[2018-07-20] MEDS: MONTELUKAST 10 MG TAB PO (09:12)
[2018-07-20] MEDS: LOSARTAN 50 MG TAB PO (09:13)
[2018-07-20] MEDS: ASPIRIN 81 MG ENTERIC TAB PO (09:13)
[2018-07-20] MEDS: VITAMIN D 1,000 INTERNATIONAL UNITS TABLET PO (09:13)
[2018-07-20] MEDS: PILL CRUSHER/CUTTER 1 EACH XX (09:13)
[2018-07-20] MEDS: METOPROLOL SUCC (TopROL XL) 50MG **XL** TAB PO (09:13)
[2018-07-20] MEDS: FAMOTIDINE 20 MG TAB PO ×2 (09:13→21:20)
[2018-07-20] MEDS: hydroCHLOROthiazide 25 MG TAB PO (09:13)
[2018-07-20] MEDS: FERROUS SULFATE 325MG TAB PO (09:13)
[2018-07-20] MEDS: OMEGA-3 1000MG CAPSULE PO ×2 (09:14→21:21)
[2018-07-20] MEDS: FLUTICASONE PROP 0.05% NASAL SPRAY 16 GM (FLONASE) (09:14)
[2018-07-20] MEDS: KETOCONAZOLE 2% CREAM EXT ×2 (09:14→21:00)
[2018-07-20] MEDS: DEXTRAN/HYPROMELLOSE OPHTH SOLN 15 ML(GENTEAL TEARS) OU ×4 (09:15→21:00)
[2018-07-20] MEDS: NYSTATIN 100,000 UNITS/GM TOPICAL PWD 15 GM TOP ×2 (09:15→21:22)
[2018-07-20] MEDS: TOUJEO 300 UNIT/ML SC ×2 (09:17→21:38)
[2018-07-20 16:59] LABS: BEDSIDE GLUCOSE 171 MG/DL (70-105)
[2018-07-20] MEDS: LURASIDONE 20 MG TAB (LATUDA) PO (18:05)
[2018-07-20] MEDS: clonazePAM 1 MG TAB PO (21:20)
[2018-07-20] MEDS: CETIRIZINE (ZyrTEC) 10 MG TAB PO (21:21)
[2018-07-21] MEDS: ACETAMINOPHEN TAB 650MG DOSE (2X325MG) PO (05:45)
[2018-07-21] MEDS: LEVOTHYROXINE 88MCG TABLET (0.088 MG) PO (05:45)
[2018-07-21] MEDS: VITAMIN D 1,000 INTERNATIONAL UNITS TABLET PO (08:31)
[2018-07-21] MEDS: DEXTRAN/HYPROMELLOSE OPHTH SOLN 15 ML(GENTEAL TEARS) OU ×4 (08:31→20:26)
[2018-07-21] MEDS: FLUTICASONE PROP 0.05% NASAL SPRAY 16 GM (FLONASE) (08:31)
[2018-07-21] MEDS: NYSTATIN 100,000 UNITS/GM TOPICAL PWD 15 GM TOP ×2 (08:31→20:26)
[2018-07-21] MEDS: FOLIC ACID 1 MG TAB PO (08:31)
[2018-07-21] MEDS: PILL CRUSHER/CUTTER 1 EACH XX (08:31)
[2018-07-21] MEDS: LOSARTAN 50 MG TAB PO (08:32)
[2018-07-21] MEDS: ASPIRIN 81 MG ENTERIC TAB PO (08:32)
[2018-07-21] MEDS: FAMOTIDINE 20 MG TAB PO ×2 (08:32→20:23)
[2018-07-21] MEDS: hydrOXYzine 50 MG TAB PO ×2 (08:32→20:24)
[2018-07-21] MEDS: hydroCHLOROthiazide 25 MG TAB PO (08:32)
[2018-07-21] MEDS: OMEGA-3 1000MG CAPSULE PO ×2 (08:32→20:22)
[2018-07-21] MEDS: GABAPENTIN 300 MG CAP PO ×2 (08:33→20:23)
[2018-07-21] MEDS: METOPROLOL SUCC (TopROL XL) 50MG **XL** TAB PO (08:33)
[2018-07-21] MEDS: MONTELUKAST 10 MG TAB PO (08:33)
[2018-07-21] MEDS: TOUJEO 300 UNIT/ML SC ×2 (08:37→20:32)
[2018-07-21] MEDS: KETOCONAZOLE 2% CREAM EXT ×2 (08:42→20:27)
[2018-07-21 12:20] LABS: KETONE, URINE AUTO RFX NEGATIVE (NEGATIVE); LEUKOCYTE ESTERASE UR AUTO RFX NEGATIVE (NEGATIVE); MUCUS, URINE RFX SMALL (NEGATIVE); NITRITE, URINE AUTO RFX NEGATIVE (NEGATIVE); RBC, URINE AUTO RFX 0 /HPF (0-3); SQUAM EPITHELIAL CELL UR AURFX 1 /HPF (0-6); WBC, URINE AUTO RFX 0 /HPF (0-3)
[2018-07-21 17:02] LABS: BEDSIDE GLUCOSE 123 MG/DL (70-105)
[2018-07-21] MEDS: LURASIDONE 20 MG TAB (LATUDA) PO (17:57)
[2018-07-21] MEDS: clonazePAM 1 MG TAB PO (20:22)
[2018-07-21] MEDS: CETIRIZINE (ZyrTEC) 10 MG TAB PO (20:22)
[2018-07-22] MEDS: ACETAMINOPHEN TAB 650MG DOSE (2X325MG) PO (05:51)
[2018-07-22] MEDS: hydrOXYzine 50 MG TAB PO (05:52)
[2018-07-22 05:56] LABS: BEDSIDE GLUCOSE 160 MG/DL (70-105)
[2018-07-22] MEDS: LEVOTHYROXINE 88MCG TABLET (0.088 MG) PO (05:59)
[2018-07-22] MEDS: PILL CRUSHER/CUTTER 1 EACH XX ×2 (08:11→20:13)
[2018-07-22] MEDS: OMEGA-3 1000MG CAPSULE PO ×2 (08:11→20:10)
[2018-07-22] MEDS: MONTELUKAST 10 MG TAB PO (08:11)
[2018-07-22] MEDS: FERROUS SULFATE 325MG TAB PO (08:12)
[2018-07-22] MEDS: hydroCHLOROthiazide 25 MG TAB PO (08:12)
[2018-07-22] MEDS: FLUTICASONE PROP 0.05% NASAL SPRAY 16 GM (FLONASE) (08:12)
[2018-07-22] MEDS: ASPIRIN 81 MG ENTERIC TAB PO (08:12)
[2018-07-22] MEDS: GABAPENTIN 300 MG CAP PO ×2 (08:12→20:11)
[2018-07-22] MEDS: VITAMIN D 1,000 INTERNATIONAL UNITS TABLET PO (08:12)
[2018-07-22] MEDS: FAMOTIDINE 20 MG TAB PO ×2 (08:12→20:11)
[2018-07-22] MEDS: FOLIC ACID 1 MG TAB PO (08:12)
[2018-07-22] MEDS: NYSTATIN 100,000 UNITS/GM TOPICAL PWD 15 GM TOP ×2 (08:12→20:12)
[2018-07-22] MEDS: DEXTRAN/HYPROMELLOSE OPHTH SOLN 15 ML(GENTEAL TEARS) OU ×4 (08:12→20:12)
[2018-07-22] MEDS: METOPROLOL SUCC (TopROL XL) 50MG **XL** TAB PO (08:13)
[2018-07-22] MEDS: LOSARTAN 50 MG TAB PO (08:13)
[2018-07-22] MEDS: TOUJEO 300 UNIT/ML SC ×2 (08:19→20:18)
[2018-07-22] MEDS: KETOCONAZOLE 2% CREAM EXT ×2 (08:19→20:11)
[2018-07-22 17:17] LABS: BEDSIDE GLUCOSE 143 MG/DL (70-105)
[2018-07-22] MEDS: LURASIDONE 20 MG TAB (LATUDA) PO (17:57)
[2018-07-22] MEDS: clonazePAM 1 MG TAB PO (20:11)
[2018-07-22] MEDS: CETIRIZINE (ZyrTEC) 10 MG TAB PO (20:11)
[2018-07-23] MEDS: ACETAMINOPHEN TAB 650MG DOSE (2X325MG) PO (05:08)
[2018-07-23 05:11] LABS: BEDSIDE GLUCOSE 128 MG/DL (70-105)
[2018-07-23] MEDS: LEVOTHYROXINE 88MCG TABLET (0.088 MG) PO (06:06)
[2018-07-23] MEDS: KETOCONAZOLE 2% CREAM EXT ×2 (09:00→20:14)
[2018-07-23] MEDS: FLUTICASONE PROP 0.05% NASAL SPRAY 16 GM (FLONASE) (09:09)
[2018-07-23] MEDS: DEXTRAN/HYPROMELLOSE OPHTH SOLN 15 ML(GENTEAL TEARS) OU ×4 (09:09→20:13)
[2018-07-23] MEDS: METOPROLOL SUCC (TopROL XL) 50MG **XL** TAB PO (09:10)
[2018-07-23] MEDS: OMEGA-3 1000MG CAPSULE PO ×2 (09:10→20:13)
[2018-07-23] MEDS: NYSTATIN 100,000 UNITS/GM TOPICAL PWD 15 GM TOP ×2 (09:10→20:14)
[2018-07-23] MEDS: MONTELUKAST 10 MG TAB PO (09:11)
[2018-07-23] MEDS: VITAMIN D 1,000 INTERNATIONAL UNITS TABLET PO (09:11)
[2018-07-23] MEDS: ASPIRIN 81 MG ENTERIC TAB PO (09:11)
[2018-07-23] MEDS: FAMOTIDINE 20 MG TAB PO ×2 (09:11→20:12)
[2018-07-23] MEDS: GABAPENTIN 300 MG CAP PO ×2 (09:12→20:12)
[2018-07-23] MEDS: hydroCHLOROthiazide 25 MG TAB PO (09:12)
[2018-07-23] MEDS: LOSARTAN 50 MG TAB PO (09:12)
[2018-07-23] MEDS: FOLIC ACID 1 MG TAB PO (09:12)
[2018-07-23] MEDS: TOUJEO 300 UNIT/ML SC ×2 (09:14→21:00)
[2018-07-23] MEDS: hydrOXYzine 50 MG TAB PO ×2 (09:17→17:42)
[2018-07-23] MEDS: LURASIDONE 20 MG TAB (LATUDA) PO (17:24)
[2018-07-23] MEDS: DIVALPROEX 500MG *ER* TAB PO (20:12)
[2018-07-23] MEDS: clonazePAM 1 MG TAB PO (20:12)
[2018-07-23] MEDS: CETIRIZINE (ZyrTEC) 10 MG TAB PO (20:13)
[2018-07-23] MEDS: LEVEMIR (INSULIN DETEMIR) 1 UNITS/0.01ML SC (22:59)
[2018-07-24] MEDS: LEVOTHYROXINE 88MCG TABLET (0.088 MG) PO (05:52)
[2018-07-24] MEDS: hydrOXYzine 50 MG TAB PO (05:52)
[2018-07-24] MEDS: ACETAMINOPHEN TAB 650MG DOSE (2X325MG) PO (05:52)
[2018-07-24 06:01] LABS: BEDSIDE GLUCOSE 139 MG/DL (70-105)
[2018-07-24] MEDS: KETOCONAZOLE 2% CREAM EXT ×2 (08:03→21:00)
[2018-07-24] MEDS: MONTELUKAST 10 MG TAB PO (08:08)
[2018-07-24] MEDS: FAMOTIDINE 20 MG TAB PO ×2 (08:08→22:01)
[2018-07-24] MEDS: FOLIC ACID 1 MG TAB PO (08:08)
[2018-07-24] MEDS: FERROUS SULFATE 325MG TAB PO (08:08)
[2018-07-24] MEDS: GABAPENTIN 300 MG CAP PO ×2 (08:08→22:01)
[2018-07-24] MEDS: OMEGA-3 1000MG CAPSULE PO ×2 (08:08→21:00)
[2018-07-24] MEDS: VITAMIN D 1,000 INTERNATIONAL UNITS TABLET PO (08:08)
[2018-07-24] MEDS: ASPIRIN 81 MG ENTERIC TAB PO (08:08)
[2018-07-24] MEDS: METOPROLOL SUCC (TopROL XL) 50MG **XL** TAB PO (08:10)
[2018-07-24] MEDS: DEXTRAN/HYPROMELLOSE OPHTH SOLN 15 ML(GENTEAL TEARS) OU ×4 (08:10→21:00)
[2018-07-24] MEDS: NYSTATIN 100,000 UNITS/GM TOPICAL PWD 15 GM TOP ×2 (08:11→22:06)
[2018-07-24] MEDS: FLUTICASONE PROP 0.05% NASAL SPRAY 16 GM (FLONASE) (08:11)
[2018-07-24] MEDS: hydroCHLOROthiazide 25 MG TAB PO (08:12)
[2018-07-24] MEDS: LOSARTAN 50 MG TAB PO (08:12)
[2018-07-24 17:45] LABS: BEDSIDE GLUCOSE 135 MG/DL (70-105)
[2018-07-24] MEDS: LURASIDONE 20 MG TAB (LATUDA) PO (17:49)
[2018-07-24 18:46] LABS: KETONE, URINE AUTO RFX NEGATIVE (NEGATIVE); LEUKOCYTE ESTERASE UR AUTO RFX NEGATIVE (NEGATIVE); MUCUS, URINE RFX SMALL (NEGATIVE); NITRITE, URINE AUTO RFX NEGATIVE (NEGATIVE); RBC, URINE AUTO RFX 0 /HPF (0-3); SPECIFIC GRAVITY UR AUTO RFX 1.016 (1.002-1.035); SQUAM EPITHELIAL CELL UR AURFX 0 /HPF (0-6); WBC, URINE AUTO RFX 0 /HPF (0-3)
[2018-07-24] MEDS: DIVALPROEX 500MG *ER* TAB PO (22:01)
[2018-07-24] MEDS: CETIRIZINE (ZyrTEC) 10 MG TAB PO (22:01)
[2018-07-24] MEDS: clonazePAM 1 MG TAB PO (22:02)
[2018-07-24] MEDS: TOUJEO 300 UNIT/ML SC (22:04)
[2018-07-25] MEDS: LEVOTHYROXINE 88MCG TABLET (0.088 MG) PO (06:18)
[2018-07-25] MEDS: LOSARTAN 50 MG TAB PO (08:56)
[2018-07-25] MEDS: GABAPENTIN 300 MG CAP PO ×2 (08:56→20:08)
[2018-07-25] MEDS: METOPROLOL SUCC (TopROL XL) 50MG **XL** TAB PO (08:57)
[2018-07-25] MEDS: OMEGA-3 1000MG CAPSULE PO ×2 (08:57→20:08)
[2018-07-25] MEDS: hydroCHLOROthiazide 25 MG TAB PO (08:57)
[2018-07-25] MEDS: VITAMIN D 1,000 INTERNATIONAL UNITS TABLET PO (08:57)
[2018-07-25] MEDS: ASPIRIN 81 MG ENTERIC TAB PO (08:57)
[2018-07-25] MEDS: FOLIC ACID 1 MG TAB PO (08:57)
[2018-07-25] MEDS: MONTELUKAST 10 MG TAB PO (08:57)
[2018-07-25] MEDS: FLUTICASONE PROP 0.05% NASAL SPRAY 16 GM (FLONASE) (08:58)
[2018-07-25] MEDS: FAMOTIDINE 20 MG TAB PO ×2 (08:58→20:08)
[2018-07-25] MEDS: DEXTRAN/HYPROMELLOSE OPHTH SOLN 15 ML(GENTEAL TEARS) OU ×4 (08:58→20:12)
[2018-07-25] MEDS: hydrOXYzine 50 MG TAB PO ×2 (09:00→17:53)
[2018-07-25] MEDS ORDERED: **PENDING PPD ENTRY XX (09:00)
[2018-07-25] MEDS ORDERED: TUBERCULIN PPD 5 UNITS/0.1 ML ID (09:00)
[2018-07-25] MEDS: NYSTATIN 100,000 UNITS/GM TOPICAL PWD 15 GM TOP ×2 (09:00→20:12)
[2018-07-25] MEDS: KETOCONAZOLE 2% CREAM EXT ×2 (09:00→20:12)
[2018-07-25] MEDS: LURASIDONE 20 MG TAB (LATUDA) PO (17:51)
[2018-07-25] MEDS: CETIRIZINE (ZyrTEC) 10 MG TAB PO (20:08)
[2018-07-25] MEDS: DIVALPROEX 500MG *ER* TAB PO (20:08)
[2018-07-25] MEDS: clonazePAM 1 MG TAB PO (20:08)
[2018-07-25] MEDS: TOUJEO 300 UNIT/ML SC (20:12)
[2018-07-26] MEDS: LEVOTHYROXINE 88MCG TABLET (0.088 MG) PO (06:18)
[2018-07-26 06:54] LABS: BEDSIDE GLUCOSE 147 MG/DL (70-105)
[2018-07-26] MEDS: FERROUS SULFATE 325MG TAB PO (08:31)
[2018-07-26] MEDS: hydroCHLOROthiazide 25 MG TAB PO (08:31)
[2018-07-26] MEDS: LOSARTAN 50 MG TAB PO (08:31)
[2018-07-26] MEDS: OMEGA-3 1000MG CAPSULE PO (08:32)
[2018-07-26] MEDS: VITAMIN D 1,000 INTERNATIONAL UNITS TABLET PO (08:32)
[2018-07-26] MEDS: GABAPENTIN 300 MG CAP PO (08:32)
[2018-07-26] MEDS: MONTELUKAST 10 MG TAB PO (08:32)
[2018-07-26] MEDS: FOLIC ACID 1 MG TAB PO (08:32)
[2018-07-26] MEDS: ASPIRIN 81 MG ENTERIC TAB PO (08:32)
[2018-07-26] MEDS: METOPROLOL SUCC (TopROL XL) 50MG **XL** TAB PO (08:32)
[2018-07-26] MEDS: NYSTATIN 100,000 UNITS/GM TOPICAL PWD 15 GM TOP (08:32)
[2018-07-26] MEDS: FAMOTIDINE 20 MG TAB PO (08:32)
[2018-07-26] MEDS: DEXTRAN/HYPROMELLOSE OPHTH SOLN 15 ML(GENTEAL TEARS) OU (08:33)
[2018-07-26] MEDS: hydrOXYzine 50 MG TAB PO (08:34)
[2018-07-26] MEDS: FLUTICASONE PROP 0.05% NASAL SPRAY 16 GM (FLONASE) (08:35)
[2018-07-26] MEDS: KETOCONAZOLE 2% CREAM EXT (08:35)
[2018-07-27] MEDS ORDERED: PPD DOCUMENTATION ENTRY MISC XX (10:00)
== END 2018-07-26 10:15 | disposition home or self-care (01) | DRG 753 ==
LOC: M PSY 07-11 19:35 → M ED 13:33 → M ED INP 19:58 → M PSY 23:26
DX: F31.9 Bipolar disorder, unspecified (principal); R45.851 Suicidal ideations; R45.850 Homicidal ideations; E11.9 Type 2 diabetes mellitus without complications; Z68.41 Body mass index [BMI] 40.0-44.9, adult; I10 Essential (primary) hypertension; B35.9 Dermatophytosis, unspecified; F60.3 Borderline personality disorder; F43.10 Post-traumatic stress disorder, unspecified; Z79.82 Long term (current) use of aspirin; Z79.899 Other long term (current) drug therapy; Z88.0 Allergy status to penicillin; Z88.8 Allergy status to other drugs, medicaments and biological substances; J45.909 Unspecified asthma, uncomplicated; E66.9 Obesity, unspecified; K21.9 Gastro-esophageal reflux disease without esophagitis; D50.9 Iron deficiency anemia, unspecified; E03.9 Hypothyroidism, unspecified; F41.9 Anxiety disorder, unspecified; G47.33 Obstructive sleep apnea (adult) (pediatric); E87.6 Hypokalemia

== ENCOUNTER → 2018-07-08 | Outpatient (REF) | payer OTHER, MEDICAID ==
[2018-07-08 13:35] LABS: ALBUMIN 3.6 GM/DL (3.2-5.2); ALKALINE PHOSPHATASE 65 U/L (45-117); ALT/SGPT 25 U/L (12-78); ANION GAP 8 MEQ/L (8-16); AST/SGOT 13 U/L (7-37); BILIRUBIN,TOTAL 0.6 MG/DL (0.2-1.0); BLOOD UREA NITROGEN 7 MG/DL (7-18); CARBON DIOXIDE LEVEL 27 MEQ/L (21-32); CHLORIDE LEVEL 105 MEQ/L (98-107); GLOMERULAR FILTRATION RATE > 60.0 (>58); GLUCOSE, FASTING 130 MG/DL (70-100); POTASSIUM SERUM 3.3 MEQ/L (3.5-5.1); SODIUM LEVEL 140 MEQ/L (136-145); TOTAL PROTEIN 6.6 GM/DL (6.4-8.2)
[2018-07-08 14:25] LABS: HIV 1&2 SCREEN CENTAUR NEGATIVE (NEGATIVE)
[2018-07-08 14:33] LABS: CHLAMYDIA DNA AMPLIFICATION NEGATIVE (NEGATIVE); GC DNA AMPLIFICATION NEGATIVE (NEGATIVE)
== END ==
LOC: M LAB REF 12:22
DX: Z11.3 Encounter for screening for infections with a predominantly sexual mode of transmission (principal)
CPT/HCPCS: 80053

== ENCOUNTER → 2018-08-06 | Outpatient (REF) | payer MEDICAID ==
[2018-08-06 14:04] LABS: ESTIMATED AVERAGE GLUCOSE 137 MG/DL (60-110); HEMOGLOBIN A1c 6.4 %
== END ==
LOC: M LAB REF 12:14
DX: E11.9 Type 2 diabetes mellitus without complications (principal); E03.9 Hypothyroidism, unspecified
CPT/HCPCS: 84443

== ENCOUNTER → 2018-08-20 | Outpatient (CLI) | payer OTHER ==
[2018-08-20 09:47] LABS: PLATELET COUNT, AUTOMATED 298 10^3/uL (150-450)
[2018-08-20 10:14] LABS: ALBUMIN 3.6 GM/DL (3.2-5.2); ALBUMIN/GLOBULIN RATIO 1.13 (1.00-1.93); ALKALINE PHOSPHATASE 54 U/L (45-117); ALT/SGPT 23 U/L (12-78); AST/SGOT 10 U/L (7-37); BILIRUBIN,DIRECT 0.1 MG/DL (0.0-0.2); BILIRUBIN,TOTAL 0.5 MG/DL (0.2-1.0); CHOLESTEROL LEVEL 176 MG/DL (<200); CHOLESTEROL RISK RATIO 4.093 (<5); HDL CHOLESTEROL 43 MG/DL (>40); LDL CHOLESTEROL 117 MG/DL (<100); NON-HDL-C 133 MG/DL; TOTAL PROTEIN 6.8 GM/DL (6.4-8.2); TRIGLYCERIDES LEVEL 78 MG/DL (<150); VALPROIC ACID (DEPAKOTE) 63.6 UG/ML (50.0-100.0)
== END ==
LOC: M LAB 09:14
DX: Z51.81 Encounter for therapeutic drug level monitoring (principal); Z79.899 Other long term (current) drug therapy
CPT/HCPCS: 80164

== ENCOUNTER → 2018-11-01 | Outpatient (REF) | payer OTHER, MEDICAID ==
[~2018-11-01] MED LIST changes: +ASPI81TAEC PO; +BUPR200T; +BUPR200T PO; +CETI10CH PO; +CETI10TA PO; +CLON1TAB8 PO; +DEPA500T2 PO; -EFFE150C PO; +EFFE150C2 PO; +EFFE37.5 PO; -EFFE37.527 PO; +FERR1TAB8; +FERR1TAB8 PO; +FLON1SPR; +FOLI1TAB11; +FOLI1TAB11 PO; +GABA-843 PO; +GENT1SOL16 OU; +GEOD40CA13 PO; +HYDR25TAB; +HYDR25TAB PO; +HYDRO50TAB PO; +KETO2CR EXT; +LATU40TA; +LATU40TA PO; +LATU80TA PO; +LEVO88TA3; +LOSA50TA88; +LOSA50TA88 PO; +METO1TAB7; +METO1TAB7 PO; +METR-201 PO; +MONT10TA2; +MONT10TA2 PO; +NYST1POW9 TOP; +OMEG10002 PO; -PANT40TA2 PO; +PANT40TA3 PO; -PEPC1TAB4 PO; +PEPC1TAB5 PO; +SYNT88TA2 PO; +TOUJ1.2I; +TOUJ1.2I SC; -TRAZ-136 PO; +TRAZ-160 PO; +TRAZ-163 PO; +TRAZ10TA PO; +TRAZ1TAB14 PO; -TRAZ50TA11 PO; +VITA2000 PO; +VITA200015 PO; +ZIPR40CA11 PO
[2018-11-01 16:59] LABS: ALBUMIN 3.2 GM/DL (3.2-5.2); ALT/SGPT 17 U/L (12-78); BILIRUBIN,TOTAL 0.4 MG/DL (0.2-1.0); BLOOD UREA NITROGEN 10 MG/DL (7-18); CALCIUM LEVEL 8.5 MG/DL (8.5-10.1); CARBON DIOXIDE LEVEL 20 MEQ/L (21-32); CHLORIDE LEVEL 107 MEQ/L (98-107); CHOLESTEROL LEVEL 180 MG/DL (<200); CHOLESTEROL RISK RATIO 3.461 (<5); CREATININE FOR GFR 0.78 MG/DL (0.55-1.30); GLOMERULAR FILTRATION RATE > 60.0 (>58); GLUCOSE, FASTING 216 MG/DL (70-100); HDL CHOLESTEROL 52 MG/DL (>40); LDL CHOLESTEROL 98 MG/DL (<100); NON-HDL-C 128 MG/DL; POTASSIUM SERUM 3.8 MEQ/L (3.5-5.1); SODIUM LEVEL 138 MEQ/L (136-145); TOTAL PROTEIN 6.3 GM/DL (6.4-8.2); TRIGLYCERIDES LEVEL 150 MG/DL (<150)
[2018-11-01 17:13] LABS: HEMOGLOBIN A1c 7.4 %
[2018-11-01 19:05] LABS: MALB URINE SIEMENS 17.8 MG/L; MAU/CREAT RATIO 11.6 MCG/MG (0.0-30.0)
== END ==
LOC: M LAB REF 16:14
PROVIDERS: ATTEND Nurse Practitioner Adult Health
DX: E11.9 Type 2 diabetes mellitus without complications (principal)

== ENCOUNTER → 2018-11-16 | Outpatient (REF) | payer OTHER, MEDICAID ==
[2018-11-16 13:10] LABS: APPEARANCE, URINE CLEAR (CLEAR); BACTERIA, URINE AUTO NEGATIVE (NEGATIVE); BILIRUBIN, URINE AUTO NEGATIVE (NEGATIVE); BLOOD, URINE BLOOD NEGATIVE (NEGATIVE); COLOR, URINE YELLOW (YELLOW); GLUCOSE, URINE (UA) AUTO 3+ mg/dL (NEGATIVE); KETONE, URINE AUTO 1+ mg/dL (NEGATIVE); LEUKOCYTE ESTERASE, URINE AUTO NEGATIVE (NEGATIVE); MUCUS, URINE SMALL (NEGATIVE); NITRITE, URINE AUTO NEGATIVE (NEGATIVE); PROTEIN, URINE AUTO NEGATIVE (NEGATIVE); RBC, URINE AUTO 2 /HPF (0-3); SPECIFIC GRAVITY URINE AUTO 1.033 (1.002-1.035); SQUAMOUS EPITHELIAL CELL UR AU 1 /HPF (0-6); UROBILINOGEN, URINE AUTO 0.2 mg/dL (0.0-2.0); WBC, URINE AUTO 0 /HPF (0-3)
== END ==
LOC: M LAB REF 12:58
PROVIDERS: ATTEND Physician Assistant Medical
DX: N39.0 Urinary tract infection, site not specified (principal)

== ENCOUNTER → 2018-11-21 | Outpatient (CLI) | payer OTHER, MEDICAID ==
[2018-11-21 11:30] LABS: ALBUMIN 3.2 GM/DL (3.2-5.2); BILIRUBIN,DIRECT 0.1 MG/DL (0.0-0.2); BILIRUBIN,TOTAL 0.3 MG/DL (0.2-1.0); TOTAL PROTEIN 6.6 GM/DL (6.4-8.2)
== END ==
LOC: M LAB 09:42
PROVIDERS: ATTEND Psychiatry & Neurology Psychiatry
DX: Z79.899 Other long term (current) drug therapy (principal)

== ENCOUNTER → 2018-12-02 | Outpatient (CLI) | payer OTHER ==
--- NOTE | 2018-12-03 16:34 | SLEEPCENT ---
DATE OF PROCEDURE: 12/02/2018 ORDERED BY: Nae Lynn Nocturnal polysomnography was performed for the titration of pressure therapy in this patient with obstructive sleep apnea syndrome. For testing a Respironics [place] View full face mask of medium size was used, 7 cm of water were applied to the circuit and the lights were extinguished. 7 hours and 44 minutes of data were reviewed. There were 435 minutes of sleep identified. Sleep latency was normal at 9.5 minutes. Rapid eye movement (REM) latency was normal at 74 minutes. Sleep architecture was good with four REM cycles. Overall sleep efficiency 94.7%. The electrocardiogram showed a sinus rhythm with an average heart rate of 78 beats per minute. EEG showed normal waveforms for awake and sleep. Respiratory events were fully palliated with continuous positive airway pressure (CPAP) at 13 cm and remaining measures of sleep physiology were normal. IMPRESSION: Obstructive sleep apnea syndrome (G47.33). RECOMMENDATIONS: Nightly use of pressure therapy 13 cm of water.
== END ==
LOC: M SLEEP 19:51
PROVIDERS: ATTEND Nurse Practitioner Family
DX: G47.33 Obstructive sleep apnea (adult) (pediatric) (principal)

== ENCOUNTER → 2018-12-09 | Outpatient (CLI) | payer OTHER, MEDICAID | LOC: M LAB 09:16 | PROVIDERS: ATTEND Psychiatry & Neurology Psychiatry | DX: Z79.899 Other long term (current) drug therapy (principal) ==

== ENCOUNTER → 2018-12-11 | Outpatient (CLI) | payer OTHER ==
[~2018-12-11] MED LIST changes: +HumuLIN R (REGULAR) INSULIN (NovoLIN R) **100U/ML** PER UNIT As Ordered ONE; +ZOSYN 3.375 GM VIAL (J2543) As Ordered ONE
--- NOTE | 2018-12-11 15:29 | REP ---
Right lower extremity Duplex Doppler venous ultrasound: Real time compression and duplex Doppler interrogation of the right lower extremity deep venous system is performed. The right common femoral, superficial femoral and popliteal veins are fully compressible with transducer pressure and demonstrate normal spontaneous and phasic flow, without evidence of deep venous thrombosis. Impression: No evidence of deep venous thrombosis of the right lower extremity femoral popliteal venous system. Electronically Signed by Tres Barraza MD 12/11/2018 03:20 P
== END ==
LOC: M RAD 13:12
PROVIDERS: ATTEND Podiatrist Foot & Ankle Surgery
DX: M79.604 Pain in right leg (principal)
CPT/HCPCS: 93971; J2543

== ENCOUNTER 2018-12-25 11:38 | Inpatient (IN) | payer MEDICAID, OTHER ==
[~2018-12-25] VITALS: Ht 170.2 cm; Wt 139.6 kg
[~2018-12-25 11:38] MED LIST changes: -/FAMO2TA PO; -/QUET10TA PO; +ALIS300T PO; -HumuLIN R (REGULAR) INSULIN (NovoLIN R) **100U/ML** PER UNIT As Ordered ONE; -METR-201 PO; +METR-265 PO; +SERO1TAB PO; -TEKT300T PO; -ZOSYN 3.375 GM VIAL (J2543) As Ordered ONE
[2018-12-25] MEDS ORDERED: DEPA1TAB3 PO (11:51)
[2018-12-25] MEDS ORDERED: BASA100I SC ×2 (11:57→16:05)
[2018-12-25] MEDS ORDERED: ADME100I (11:57)
[2018-12-25 13:38] LABS: HEMATOCRIT 39.3 % (36.0-47.0); MEAN CORPUSCULAR HEMOGLOBIN 29.7 pg (27.0-33.0); MEAN CORPUSCULAR HGB CONC 33.1 g/dl (32.0-36.5); MEAN CORPUSCULAR VOLUME 89.9 fl (80.0-96.0); PLATELET COUNT, AUTOMATED 261 10^3/uL (150-450); RED BLOOD COUNT 4.37 10^6/uL (4.00-5.40); WHITE BLOOD COUNT 7.7 10^3/uL (4.0-10.0)
[2018-12-25 14:05] LABS: AMPHETAMINES LEVEL URINE NEGATIVE (NEGATIVE); BARBITURATES URINE NEGATIVE (NEGATIVE); BENZODIAZEPINES URINE NEGATIVE (NEGATIVE); CANNABINOIDS URINE NEGATIVE (NEGATIVE); COCAINE METABOLITE URINE NEGATIVE (NEGATIVE); METHADONE URINE NEGATIVE (NEGATIVE); OPIATES URINE NEGATIVE (NEGATIVE); PHENCYCLIDINE URINE NEGATIVE (NEGATIVE)
[2018-12-25 14:22] LABS: ACETAMINOPHEN LEVEL < 2.0 UG/ML (10.0-30.0); ALT/SGPT 24 U/L (12-78); BILIRUBIN,DIRECT < 0.1 MG/DL (0.0-0.2); BILIRUBIN,TOTAL 0.3 MG/DL (0.2-1.0); BLOOD UREA NITROGEN 11 MG/DL (7-18); CARBON DIOXIDE LEVEL 31 MEQ/L (21-32); CHLORIDE LEVEL 106 MEQ/L (98-107); ETHYL ALCOHOL (ETHANOL) < 0.003 % (0.000-0.010); GLOMERULAR FILTRATION RATE > 60.0 (>58); GLUCOSE, FASTING 190 MG/DL (70-100); POTASSIUM SERUM 4.2 MEQ/L (3.5-5.1); SALICYLATE LEVEL < 1.7 MG/DL (5.0-30.0); SODIUM LEVEL 143 MEQ/L (136-145); TOTAL PROTEIN 6.1 GM/DL (6.4-8.2); VALPROIC ACID (DEPAKOTE) 107.4 UG/ML (50.0-100.0)
[2018-12-25] MEDS ORDERED: MAALOX 30 ML SUSP *UDC PO PRN (15:15)
[2018-12-25] MEDS ORDERED: traZODone 50 MG TAB PO PRN (15:15)
[2018-12-25] MEDS ORDERED: MOM 30ML SUSPENSION UDC PO PRN (15:15)
[2018-12-25] MEDS ORDERED: GLUCOSE 4 GM CHEW TABLET PO PRN (15:30)
[2018-12-25] MEDS ORDERED: hydrOXYzine 50 MG TAB PO PRN (15:30)
[2018-12-25] MEDS ORDERED: GLUCAGON FOR INJ 1 MG VIAL (J1610) SC PRN (15:30)
[2018-12-25] MEDS: METHOCARBAMOL 500 MG TAB PO SCH ×2 (16:00→22:10)
[2018-12-25] MEDS ORDERED: IBUP1TAB6 PO (16:05)
[2018-12-25] MEDS ORDERED: MONT10TA2 PO (16:05)
[2018-12-25] MEDS ORDERED: DEPA250T32 PO (16:05)
[2018-12-25] MEDS ORDERED: CLON1TAB8 PO (16:05)
[2018-12-25] MEDS ORDERED: LATU120T PO (16:05)
[2018-12-25 16:40] VITALS: BP 160/88
[2018-12-25] MEDS ORDERED: METH1TAB40 PO (16:56)
[2018-12-25] MEDS: LURASIDONE HCL 40 MG TAB (LATUDA) PO SCH (17:40)
[2018-12-25] MEDS: HumaLOG INSULIN (NovoLOG) PER UNIT SC SCH ×2 (17:40→21:00)
[2018-12-25] MEDS ORDERED: METOPROLOL TART 50 MG TAB PO SCH (21:00)
[2018-12-25] MEDS: POLYVINYL ALCOHOL OPHTH SOLN 15 ML(LIQUITEARS) OU SCH (21:00)
[2018-12-25] MEDS: NYSTATIN OINTMENT 15 GM TOP SCH (21:00)
[2018-12-25] MEDS: DIVALPROEX 250 MG TAB PO SCH (22:09)
[2018-12-25] MEDS: clonazePAM 1 MG TAB PO SCH (22:10)
[2018-12-25] MEDS: OMEPRAZOLE 20 MG CAP PO SCH (22:10)
[2018-12-25] MEDS: OMEGA-3 1000MG CAPSULE PO SCH (22:10)
[2018-12-25] MEDS: DIVALPROEX 500 MG TAB PO SCH (22:10)
[2018-12-25] MEDS: METOPROLOL SUCC (TopROL XL) 50MG **XL** TAB PO SCH (22:11)
[2018-12-26] MEDS: LEVOTHYROXINE 88MCG TABLET (0.088 MG) PO SCH (06:17)
[2018-12-26] MEDS: HumaLOG INSULIN (NovoLOG) PER UNIT SC SCH ×4 (06:39→21:00)
[2018-12-26 07:00] VITALS: BP 150/83
[2018-12-26] MEDS: clonazePAM 1 MG TAB PO SCH ×2 (08:19→22:35)
[2018-12-26] MEDS: DIVALPROEX 250 MG TAB PO SCH (08:19)
[2018-12-26] MEDS: DIVALPROEX 500 MG TAB PO SCH ×2 (08:19→22:35)
[2018-12-26] MEDS: VITAMIN D 1,000 INTERNATIONAL UNITS TABLET PO SCH (08:19)
[2018-12-26] MEDS: ASPIRIN 81 MG ENTERIC TAB PO SCH (08:20)
[2018-12-26] MEDS: FLUTICASONE PROP 0.05% NASAL SPRAY 16 GM (FLONASE) NARES SCH (08:20)
[2018-12-26] MEDS: LOSARTAN 50 MG TAB PO SCH (08:20)
[2018-12-26] MEDS: OMEGA-3 1000MG CAPSULE PO SCH ×2 (08:20→22:34)
[2018-12-26] MEDS: METHOCARBAMOL 500 MG TAB PO SCH ×3 (08:20→22:35)
[2018-12-26] MEDS: OMEPRAZOLE 20 MG CAP PO SCH ×2 (08:20→22:34)
[2018-12-26] MEDS: NYSTATIN OINTMENT 15 GM TOP SCH ×2 (09:00→21:00)
[2018-12-26] MEDS: POLYVINYL ALCOHOL OPHTH SOLN 15 ML(LIQUITEARS) OU SCH ×4 (09:00→22:37)
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
[2018-12-26] MEDS: CitaloPRAM (CeleXA) 10 MG TABLET PO SCH (10:35)
[2018-12-26] MEDS: ACETAMINOPHEN TAB 650MG DOSE (2X325MG) PO PRN (17:21)
[2018-12-26 18:00] VITALS: BP 138/69
[2018-12-26] MEDS: LURASIDONE HCL 40 MG TAB (LATUDA) PO SCH (18:27)
--- NOTE | 2018-12-26 20:44 | HPEPDOC ---
[facility] Medical History & Physical History and Physical HPI:48 y/o F admitted to [facility] for depression. Complains of Rt knee pain, previously evaluated by Dr. Joseph with negative duplex of Rt LE. pain with ambulating and recent weight gain. Denies any fevers, chills, weakness, fatigue, [place], CP, SOB, cough, palpitations, abdominal pain, N/V/D or changes in bowel or bladder habits. PMHx: Asthma ROMEL. CPAP. Hypertension Obesity. BMI 48.2 IDDM IBS History of pancreatitis Anxiety Depression GERD Allergic rhinitis Iron deficiency anemia Hypothyroidism HTN PSHX: Laparoscopy Carpal tunnel release 2 D&C Endometrial ablation PE: GEN: Alert and oriented x 3. Pleasant, interactive, obese and disheveled HEENT: Normocephalic, atraumatic. Pupils are equal, round, and reactive to light. Extraocular movements are intact. EACs both patent BL. TMs both visualized and tovar with good cone of light, no bulging or erythema. No facial asymmetry. Moist mucous membranes. Dentition fair. Pharynx pink and moist. No lymphadenopathy or thyromegaly appreciated. CHEST: Regular rate and rhythm, +S1, +S2 LUNGS: Clear to auscultation bilaterally. No wheezes, rales, or rhonchi. Breathing appears symmetric and easy. Patient is speaking in full sentences. No accessory muscle use. ABD: Round, soft, non-tender, non-distended. +Bowel sounds throughout. No rebound or guarding. No costovertebral angle tenderness. EXT: Pulses 2+ bilaterally dorsalis pedis and radial. No lower extremity edema appreciated. SKIN: Davey, dry, warm. Capillary refill <2sec. No rashes. NEURO: Alert and oriented x 3. Cranial nerves III-XII are intact. No focal deficits appreciated. EKG: ordered A&P: 47 y/oF admitted to [facility] for unspecified depression 1. Rt knee pain: I suspect OA with possible joint effusion related to recent significant weight gain. Will check plain film, rec dietary consult 2. GERD. Continue ranitidine twice a day. 3. DM 2. c/w ISS and FS, will add on A1c I suspect poor control Consistent carbohydrate diet. 4. Follow up with PCP on discharge. 5. Hypertension. cont home losartan Continue metoprolol 50 mg daily. Continue aspirin 81 mg daily. 6. Asthma. stable at her baseline resp status will start Albuterol HFA 2 puffs every 6 hours as needed. 7. Allergic rhinitis. Continue Zyrtec 10 mg daily. Continue Flonase 1 spray each nostril daily. 8. Hypothyroidism. Continue levothyroxine 88 g by mouth daily. TSH is noted within normal limits. 9. History of iron deficiency anemia. Continue iron supplement.Not anemic at this time 10. Elevated Depakote level: no hx of seizures, agree with taper, con't to monitor levels can potentially taper even more so in coming days. No evidence of toxicity at this time, check ekg eval QTc 10. Female Staff member present throughout exam. Vital Signs Vital Signs Date Time Temp Pulse Resp B/P (MAP) Pulse Ox O2 Delivery O2 Flow Rate FiO2 12/26/18 08:20 150/83 12/26/18 07:00 98.1 84 16 12/25/18 16:40 97 12/25/18 16:09 Room Air Laboratory Data Labs 24H Laboratory Tests 2 12/25/18 22:03: Bedside Glucose (Misc Panel) 156H 12/26/18 06:27: Valproic Acid (Depakene) Level 120.3H 12/26/18 06:35: Bedside Glucose (Misc Panel) 140H 12/26/18 12:05: Bedside Glucose (Misc Panel) 158H 12/26/18 17:24: Bedside Glucose (Misc Panel) 202H Home Medications Scheduled Aspirin (Aspirin EC) 81 Mg Tabec, 81 MG PO DAILY Cetirizine HCl (Cetirizine HCl) 10 Mg Tab, 10 MG PO DAILY Cholecalciferol (Vitamin D3) (Vitamin D3) 2,000 Unit Tab, 2,000 UNIT PO DAILY Clonazepam (Clonazepam) 1 Mg Tablet, 1 MG PO BID Dextran/Hypromellose (Genteal Tears 0.1%-0.3% Drop) 1 Azucena Azucena, 1 DROP OU QID Divalproex Sodium (Depakote) 500 Mg Tablet.dr, 1,000 MG PO BID TAKES WITH 250MG TABLET FOR TOTAL OF 1250MG Divalproex Sodium (Depakote) 250 Mg Tablet.dr, 250 MG PO BID TAKES WITH 1000MG FOR TOTAL OF 1250MG BID Ferrous Sulfate (Ferrous Sulfate) 325 Mg Tab, 325 MG PO Q2D Fluticasone Propionate (Flonase Allergy Relief) 50 Mcg/Act Spr, 1 SPRAY NA DAILY Folic Acid (Folic Acid) 1 Mg Tab, 1 MG PO DAILY Insulin Glargine,Hum.rec.anlog (Basaglar Kwikpen U-100) 100 Unit/1 Ml Insuln.pen, 12 UNITS SC QAM Insulin Glargine,Hum.rec.anlog (Basaglar Kwikpen U-100) 100 Unit/1 Ml Insuln.pen, 20 UNIT SC QHS Levothyroxine Sodium (Synthroid) 88 Mcg Tab, 88 MCG PO DAILY Losartan Potassium (Losartan Potassium) 50 Mg Tab, 50 MG PO DAILY Lurasidone HCl (Latuda) 120 Mg Tablet, 120 MG PO QPM TAKES AT DINNERTIME Metoprolol Succinate (Metoprolol Succinate) 50 Mg Tab, 50 MG PO DAILY Montelukast Sodium (Montelukast Sodium) 10 Mg Tablet, 10 MG PO DAILY Weston-3/Dha/Epa/Fish Oil (Fish Oil 1,000 mg Softgel) 1 Cap Cap, 2 CAP PO BID Ranitidine Hcl (Ranitidine HCl) 150 Mg Tab, 1 TAB PO BID Scheduled PRN Ibuprofen (Ibuprofen) 600 Mg Tablet, 600 MG PO Q4-6H PRN for PAIN with food Methocarbamol (Methocarbamol) 500 Mg Tablet, 500 MG PO TID PRN for MUSCLE SPASMS PATIENT STATES SHE ONLY TAKES IT AT BEDTIME Allergies Coded Allergies: Sulfa (Sulfonamide Antibiotics) (Verified Allergy, Intermediate, 12/25/18) clindamycin (Verified Allergy, Intermediate, 12/25/18) loperamide (Verified Allergy, Intermediate, 12/25/18) DERRICK POWERS MD Dec 26, 2018 20:44
[2018-12-26] MEDS: FOLIC ACID 1 MG TAB PO SCH (22:34)
[2018-12-26] MEDS: FAMOTIDINE 20 MG TAB PO SCH (22:35)
[2018-12-26] MEDS: METOPROLOL SUCC (TopROL XL) 50MG **XL** TAB PO SCH (22:35)
[2018-12-26] MEDS: CETIRIZINE (ZyrTEC) 10 MG TAB PO SCH (22:35)
[2018-12-27] MEDS: LEVOTHYROXINE 88MCG TABLET (0.088 MG) PO SCH (06:08)
[2018-12-27] MEDS: HumaLOG INSULIN (NovoLOG) PER UNIT SC SCH ×4 (06:35→21:00)
[2018-12-27 06:56] VITALS: BP 140/78
[2018-12-27] MEDS: NYSTATIN OINTMENT 15 GM TOP SCH ×2 (09:00→22:04)
[2018-12-27] MEDS: CitaloPRAM (CeleXA) 10 MG TABLET PO SCH (09:40)
[2018-12-27] MEDS: VITAMIN D 1,000 INTERNATIONAL UNITS TABLET PO SCH (09:40)
[2018-12-27] MEDS: FERROUS SULFATE 325MG TAB PO SCH (09:40)
[2018-12-27] MEDS: clonazePAM 1 MG TAB PO SCH ×2 (09:40→21:53)
[2018-12-27] MEDS: FAMOTIDINE 20 MG TAB PO SCH ×2 (09:40→21:53)
[2018-12-27] MEDS: METHOCARBAMOL 500 MG TAB PO SCH ×3 (09:41→21:52)
[2018-12-27] MEDS: OMEGA-3 1000MG CAPSULE PO SCH ×2 (09:41→21:53)
[2018-12-27] MEDS: DIVALPROEX 500 MG TAB PO SCH (09:41)
[2018-12-27] MEDS: FLUTICASONE PROP 0.05% NASAL SPRAY 16 GM (FLONASE) NARES SCH (09:42)
[2018-12-27] MEDS: OMEPRAZOLE 20 MG CAP PO SCH ×2 (09:42→21:52)
[2018-12-27] MEDS: LOSARTAN 50 MG TAB PO SCH (09:42)
[2018-12-27] MEDS: ASPIRIN 81 MG ENTERIC TAB PO SCH (09:42)
[2018-12-27] MEDS: POLYVINYL ALCOHOL OPHTH SOLN 15 ML(LIQUITEARS) OU SCH ×4 (09:43→21:53)
[2018-12-27] MEDS: ACETAMINOPHEN TAB 650MG DOSE (2X325MG) PO PRN (09:56)
--- NOTE | 2018-12-27 11:38 | REP ---
RIGHT KNEE SERIES: Six views. HISTORY: Knee pain. FINDINGS: Six views of the right knee demonstrate patellofemoral and mild medial and lateral compartment osteoarthritic spurring. There is also nonarticular spurring at the inferior pole the patella at the patellar tendon insertion. There is evidence of joint effusion on lateral radiograph. No acute bony abnormality. IMPRESSION: Three compartment osteoarthritis. Tendon insertion site spurring on the inferior pole the patella. Joint effusion. No acute bony abnormality. Electronically Signed by Albert Swartz MD 12/27/2018 07:59 P
--- NOTE | 2018-12-27 16:11 | MHIPNPDOC ---
[facility] Progress Note Progress Note DATE OF SERVICE: 12/27/18 HISTORY: As per Dr. Seay: "The staff at [facility] observed the patient deteriorating, her depression getting worse, and brought her to the emergency room. During my evaluation, the patient supports that she felt that she did not want to live anymore. Recently her doctor has increased her Depakote, which is not helping her. The patient reports her depression has been for the last two months, but has worsened in the last two weeks. Her energy level has decreased. She has no interest in any daily activities or in hobbies. She complains of hypersomnia and hyperphagia, and passive suicidal thoughts "I feel as thought I don't want to live anymore." The patient has a diagnosis of bipolar disorder, however recently mostly she has been depressed. Her stressors being family discord." VITAL SIGNS: See below. NEW TEST RESULTS: See below CURRENT MEDICATIONS: See below. MENTAL STATUS EXAMINATION: Patient is a 48 year old female, who is alert, cooperative, dressed in hospital clothes, tired. Speech: slow, low volume, normal tone. Language skills are fair Thought processes including: slow, concrete, depressed. Thought content: Depressive, hopeless, helpless thoughts, mostly related to losing her children Description of abnormal or psychotic thoughts: She denies suicidal ideation, denies thought delusions, denies homicidal ideation denies AV hallucinations but admits to depressive thoughts, hopeless, helpless guilty thoughts Judgment: Limited Insight: Limited Orientation: x 3. Recent and remote memory: limited, she can't remember some recent past events but this could be related to depression. Attention span and concentration: fair Language: normal Fund of knowledge: under average Mood: depressed Affect: depressed, sad, congruent with mood. DIAGNOSES: 1. bipolar 1 disorder, depressed 2. borderline personality disorder 3. Borderline intellectual functioning ASSESSMENT: the patient is severely depressed. I spoke with Dr. Akers about the patient, she contacted me to report the patient's extensive history. i discussed with her that i was going to cross taper Latuda (decrease it) and start her on Abilify, which I will increase. her Depakote levels were above normal (120), so, tw decreased the dose to 750 mgs PO BID. Increased Celexa to 15 mgs PO daily. I believe she is also depressed because she has psychosocial stressors, her children were taken away from her and this is still a painful subject, she tells me"if you don't mind I prefer not to talk about that", while she is close to tears. Re ordered a CMP for tomorrow, her TSH was within normal limits bur her glucose levels have been high. Ordered a lipid profile for tomorrow and Depakote levels for Sunday morning. encouraged her to attend groups to keep her mind off sad/depressive thoughts. MANAGEMENT PLAN: As above. TIME SPENT: 20 minutes. Vital Signs Vital Signs Date Time Temp Pulse Resp B/P (MAP) Pulse Ox O2 Delivery O2 Flow Rate FiO2 12/27/18 09:42 140/78 12/27/18 06:56 98.3 84 16 12/25/18 16:40 97 12/25/18 16:09 Room Air Laboratory Data 24H Labs Laboratory Tests 2 12/26/18 17:24: Bedside Glucose (Misc Panel) 202H 12/26/18 22:29: Bedside Glucose (Misc Panel) 147H 12/27/18 06:28: Bedside Glucose (Misc Panel) 157H 12/27/18 11:57: Bedside Glucose (Misc Panel) 165H Current Medications Current Medications Acetaminophen (Tylenol Tab) 650 mg Q6HP PRN PO HEADACHE or DISCOMFORT Last administered on 12/27/18at 09:56; Start 12/25/18 at 15:15 Al Hydrox/Mg Hydrox/Simethicone (Mylanta) 30 ml Q4HP PRN PO HEARTBURN/INDIGESTION; Start 12/25/18 at 15:15 Albuterol Sulfate (Proventil, Ventolin Hfa) 2 puff Q6HP PRN INH SHORTNESS OF BREATH; Start 12/26/18 at 20:45 Artificial Tears (Akwa Tears) 2 drop QID OU Last administered on 12/27/18at 09:43; Start 12/25/18 at 21:00 Aspirin (Ecotrin) 81 mg QAM PO Last administered on 12/27/18at 09:42; Start 12/26/18 at 09:00 Cetirizine HCl (ZyrTEC) 10 mg QHS PO Last administered on 12/26/18at 22:35; Start 12/26/18 at 21:00 Citalopram Hydrobromide (CeleXA) 10 mg DAILY PO Last administered on 12/27/18 09:40; Start 12/26/18 at 09:30 Clonazepam (KlonoPIN) 1 mg BID PO Last administered on 12/27/18 09:40; Start 12/25/18 at 21:00 Divalproex Sodium (Depakote) 250 mg BID PO Last administered on 12/26/18 08:19; Start 12/25/18 at 21:00; Stop 12/26/18 at 09:28; Status DC Divalproex Sodium (Depakote) 750 mg BID PO ; Start 12/27/18 at 21:00 Divalproex Sodium (Depakote) 1,000 mg BID PO Last administered on 12/27/18 09:41; Start 12/25/18 at 21:00; Stop 12/27/18 at 13:55; Status DC Famotidine (Pepcid) 20 mg BID PO Last administered on 12/27/18 09:40; Start 12/26/18 at 21:00 Ferrous Sulfate (Ferrous Sulfate) 325 mg Q2D PO Last administered on 12/27/18 09:40; Start 12/27/18 at 09:00 Fish Oil (Vincent-3 (1000mg)) 2 cap BID PO Last administered on 12/27/18 09:41; Start 12/25/18 at 21:00 Fluticasone Propionate (Flonase 0.05% Nasal [place]) 2 spray DAILY NARES Last administered on 12/27/18 09:42; Start 12/26/18 at 09:00 Folic Acid (Folic Acid) 1 mg QHS PO Last administered on 12/26/18at 22:34; Start 12/26/18 at 21:00 Glucagon (Glucagon) 1 mg ASDIRECTED PRN SC SEE LABEL COMMENTS; Start 12/25/18 at 15:30 Glucose (Glucose) 16 GM ASDIRECTED PRN PO SEE LABEL COMMENTS; Start 12/25/18 at 15:30 Home Med (Med Rec Complete!) ASDIRECTED XX ; Start 12/25/18 at 16:15; Stop 12/25/18 at 16:38; Status DC Hydroxyzine HCl (Atarax) 50 mg Q6HP PRN PO ANXIETY/AGITATION Last administered on 12/26/18at 17:21; Start 12/25/18 at 15:30 Insulin Human Lispro (HumaLOG INSULIN) See Protocol Table AC SC Last administered on 12/27/18at 11:59; Start 12/25/18 at 17:30 Insulin Human Lispro (HumaLOG INSULIN) See Protocol Table QHS SC ; Start 12/25/18 at 21:00 Levothyroxine Sodium (Synthroid) 88 mcg DAILY@06 PO Last administered on 12/27/18 06:08; Start 12/26/18 at 06:00 Losartan Potassium (Cozaar) 50 mg DAILY PO Last administered on 12/27/18 09:42; Start 12/26/18 at 09:00 Lurasidone HCl (Latuda) 120 mg DAILY@1800 PO Last administered on 12/26/18at 18:27; Start 12/25/18 at 18:00 Magnesium Hydroxide (Milk Of Magnesia) 30 ml DAILYPRN PRN PO CONSTIPATION; Start 12/25/18 at 15:15 Methocarbamol (Robaxin) 500 mg TID PO Last administered on 12/27/18at 09:41; Start 12/25/18 at 16:00 Metoprolol Succinate (TopROL XL) 50 mg QHS PO Last administered on 12/26/18at 22:35; Start 12/25/18 at 21:00 Metoprolol Tartrate (Lopressor) 50 mg QHS PO ; Start 12/25/18 at 21:00; Status UNV Nystatin (Mycostatin) APPLY TO ABDOMINAL FOLDS BID TOP ; Start 12/25/18 at 21:00 Omeprazole (PriLOSEC) 20 mg BID PO Last administered on 12/27/18at 09:42; Start 12/25/18 at 21:00 Trazodone HCl (Desyrel) 50 mg QHSP PRN PO INSOMNIA Last administered on 12/25/18at 22:10; Start 12/25/18 at 15:15 Vitamin D (Vitamin D) 2,000 units DAILY PO Last administered on 12/27/18 09:40; Start 12/26/18 at 09:00 Allergies Coded Allergies: Sulfa (Sulfonamide Antibiotics) (Verified Allergy, Intermediate, 12/25/18) clindamycin (Verified Allergy, Intermediate, 12/25/18) loperamide (Verified Allergy, Intermediate, 12/25/18) ALEC ROE MD Dec 27, 2018 15:14
[2018-12-27] MEDS: LURASIDONE HCL 40 MG TAB (LATUDA) PO SCH (17:00)
--- NOTE | 2018-12-27 17:04 | ECGEPIP ---
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 No change from 07/09/18. Electronically Signed On 12-27-2018 17:04:40 EDT by Roberto Pacheco
[2018-12-27 18:31] VITALS: BP 132/62
[2018-12-27] MEDS: DIVALPROEX 250 MG TAB PO SCH (21:52)
[2018-12-27] MEDS: FOLIC ACID 1 MG TAB PO SCH (21:53)
[2018-12-27] MEDS: METOPROLOL SUCC (TopROL XL) 50MG **XL** TAB PO SCH (21:53)
[2018-12-27] MEDS: CETIRIZINE (ZyrTEC) 10 MG TAB PO SCH (21:54)
[2018-12-28] MEDS: LEVOTHYROXINE 88MCG TABLET (0.088 MG) PO SCH (06:00)
[2018-12-28] MEDS: HumaLOG INSULIN (NovoLOG) PER UNIT SC SCH ×4 (06:57→21:00)
[2018-12-28 07:02] VITALS: BP 137/78
[2018-12-28 08:12] LABS: ALBUMIN 3.2 GM/DL (3.2-5.2); ALT/SGPT 24 U/L (12-78); BILIRUBIN,TOTAL 0.3 MG/DL (0.2-1.0); BLOOD UREA NITROGEN 10 MG/DL (7-18); CARBON DIOXIDE LEVEL 29 MEQ/L (21-32); CHLORIDE LEVEL 104 MEQ/L (98-107); CHOLESTEROL LEVEL 193 MG/DL (<200); CHOLESTEROL RISK RATIO 4.595 (<5); CREATININE FOR GFR 0.77 MG/DL (0.55-1.30); GLOMERULAR FILTRATION RATE > 60.0 (>58); GLUCOSE, FASTING 166 MG/DL (70-100); HDL CHOLESTEROL 42 MG/DL (>40); LDL CHOLESTEROL 128 MG/DL (<100); NON-HDL-C 151 MG/DL; POTASSIUM SERUM 4.3 MEQ/L (3.5-5.1); SODIUM LEVEL 140 MEQ/L (136-145); TOTAL PROTEIN 6.2 GM/DL (6.4-8.2); TRIGLYCERIDES LEVEL 116 MG/DL (<150)
--- NOTE | 2018-12-28 08:54 | MHIPNPDOC ---
[facility] Progress Note Progress Note DATE OF SERVICE: 12/28/18 HISTORY: As per Dr. Seay: "The staff at [facility] observed the patient deteriorating, her depression getting worse, and brought her to the emergency room. During my evaluation, the patient supports that she felt that she did not want to live anymore. Recently her doctor has increased her Depakote, which is not helping her. The patient reports her depression has been for the last two months, but has worsened in the last two weeks. Her energy level has decreased. She has no interest in any daily activities or in hobbies. She complains of hypersomnia and hyperphagia, and passive suicidal thoughts "I feel as thought I don't want to live anymore." The patient has a diagnosis of bipolar disorder, however recently mostly she has been depressed. Her stressors being family discord." VITAL SIGNS: See below. NEW TEST RESULTS: depakote lvl 105.9 (decrease after oral dose decreased) glu 166, ldl 128 all others wnl CURRENT MEDICATIONS: See below. MENTAL STATUS EXAMINATION: Patient is a 48 year old female, who is alert, cooperative, dressed in hospital clothes, tired. Speech: slow, low volume, normal tone, limited. Language skills are fair Thought processes including: slow, concrete, depressed. Thought content: Depressive, hopeless, helpless thoughts, mostly related to losing her children Description of abnormal or psychotic thoughts: She denies suicidal ideation, denies thought delusions, denies homicidal ideation denies AV hallucinations but admits to depressive thoughts, hopeless, helpless guilty thoughts Judgment: Limited Insight: Limited Orientation: x 3. Recent and remote memory: limited, she can't remember some recent past events but this could be related to depression. Attention span and concentration: fair Language: normal Fund of knowledge: under average Mood: depressed Affect: depressed, sad, congruent with mood. DIAGNOSES: 1. bipolar 1 disorder, depressed 2. borderline personality disorder 3. Borderline intellectual functioning ASSESSMENT: Patient seen and continues to endorse depressed mood and appears se verely depressed. States she's tolerating her medication well and is waiting for it to become more beneficial. Is isolative to her room and bed and is encouraged to get up and participate in treatment groups to also aid depression. Denies SI/HI, hallucinations, delusions. MANAGEMENT PLAN: As above. reorder depakote lvl for am to follow TIME SPENT: 20 minutes. Vital Signs Vital Signs Date Time Temp Pulse Resp B/P (MAP) Pulse Ox O2 Delivery O2 Flow Rate FiO2 12/28/18 07:02 97.8 75 16 137/78 (97) 12/25/18 16:40 97 12/25/18 16:09 Room Air Laboratory Data 24H Labs Laboratory Tests 2 12/27/18 11:57: Bedside Glucose (Misc Panel) 165H 12/27/18 16:56: Bedside Glucose (Misc Panel) 131H 12/27/18 17:22: Valproic Acid (Depakene) Level 105.9H 12/27/18 21:57: Bedside Glucose (Misc Panel) 150H 12/28/18 05:52: Bedside Glucose (Misc Panel) 172H 12/28/18 07:21: Anion Gap 7L, Glomerular Filtration Rate > 60.0, Blood Urea Nitrogen 10, Creatinine 0.77, Sodium Level 140, Potassium Level 4.3, Chloride Level 104, Carbon Dioxide Level 29, Calcium Level 9.0, Aspartate Amino Transf (AST/SGOT) 14, Alanine Aminotransferase (ALT/SGPT) 24, Alkaline Phosphatase 55, Total Bilirubin 0.3, Triglycerides Level 116, LDL Cholesterol 128H, Total Protein 6.2L, Albumin 3.2, Albumin/Globulin Ratio 1.07, Total Cholesterol 193, Non-HDL Cholesterol (LDL + VLDL) 151, Total HDL Cholesterol 42, Cholesterol/HDL Ratio 4.595 CBC/BMP Laboratory Tests 12/28/18 07:21 Calcium Level 9.0, Aspartate Amino Transf (AST/SGOT) 14, Alanine Aminotransferase (ALT/SGPT) 24, Alkaline Phosphatase 55, Total Bilirubin 0.3, Triglycerides Level 116, LDL Cholesterol 128 H, Total Protein 6.2 L, Albumin 3.2 Current Medications Current Medications Acetaminophen (Tylenol Tab) 650 mg Q6HP PRN PO HEADACHE or DISCOMFORT Last administered on 12/27/18at 09:56; Start 12/25/18 at 15:15 Al Hydrox/Mg Hydrox/Simethicone (Mylanta) 30 ml Q4HP PRN PO HEARTBURN/ INDIGESTION; Start 12/25/18 at 15:15 Albuterol Sulfate (Proventil, Ventolin Hfa) 2 puff Q6HP PRN INH SHORTNESS OF BREATH; Start 12/26/18 at 20:45 Aripiprazole (AbiLIFY) 2 mg QAM PO ; Start 12/28/18 at 09:00 Aripiprazole (AbiLIFY) 2.5 mg BID PO ; Start 12/27/18 at 21:00; Stop 12/27/18 at 21:00; Status DC Aripiprazole (AbiLIFY) 5 mg QHS PO Last administered on 12/27/18 21:52; Start 12/27/18 at 21:00 Artificial Tears (Akwa Tears) 2 drop QID OU Last administered on 12/27/18 21:53; Start 12/25/18 at 21:00 Aspirin (Ecotrin) 81 mg QAM PO Last administered on 12/27/18 09:42; Start 12/26/18 at 09:00 Cetirizine HCl (ZyrTEC) 10 mg QHS PO Last administered on 12/27/18 21:54; Start 12/26/18 at 21:00 Citalopram Hydrobromide (CeleXA) 10 mg DAILY PO Last administered on 12/27/18at 09:40; Start 12/26/18 at 09:30; Stop 12/27/18 at 15:23; Status DC Citalopram Hydrobromide (CeleXA) 15 mg DAILY PO ; Start 12/28/18 at 09:00 Clonazepam (KlonoPIN) 1 mg BID PO Last administered on 12/27/18 21:53; Start 12/25/18 at 21:00 Divalproex Sodium (Depakote) 250 mg BID PO Last administered on 12/26/18at 0 8:19; Start 12/25/18 at 21:00; Stop 12/26/18 at 09:28; Status DC Divalproex Sodium (Depakote) 750 mg BID PO Last administered on 12/27/18 21:52; Start 12/27/18 at 21:00 Divalproex Sodium (Depakote) 1,000 mg BID PO Last administered on 12/27/18 09:41; Start 12/25/18 at 21:00; Stop 12/27/18 at 13:55; Status DC Famotidine (Pepcid) 20 mg BID PO Last administered on 12/27/18 21:53; Start 12/26/18 at 21:00 Ferrous Sulfate (Ferrous Sulfate) 325 mg Q2D PO Last administered on 12/27/18 09:40; Start 12/27/18 at 09:00 Fish Oil ([place]-3 (1000mg)) 2 cap BID PO Last administered on 12/27/18 21:53; Start 12/25/18 at 21:00 Fluticasone Propionate (Flonase 0.05% Nasal [place]) 2 spray DAILY NARES Last administered on 12/27/18 09:42; Start 12/26/18 at 09:00 Folic Acid (Folic Acid) 1 mg QHS PO Last administered on 12/27/18 21:53; Start 12/26/18 at 21:00 Glucagon (Glucagon) 1 mg ASDIRECTED PRN SC SEE LABEL COMMENTS; Start 12/25/18 at 15:30 Glucose (Glucose) 16 GM ASDIRECTED PRN PO SEE LABEL COMMENTS; Start 12/25/18 at 15:30 Home Med (Med Rec Complete!) ASDIRECTED XX ; Start 12/25/18 at 16:15; Stop 12/25/18 at 16:38; Status DC Hydroxyzine HCl (Atarax) 50 mg Q6HP PRN PO ANXIETY/AGITATION Last administered on 12/26/18 17:21; Start 12/25/18 at 15:30 Insulin Human Lispro (HumaLOG INSULIN) See Protocol Table AC SC Last administered on 12/27/18 17:00; Start 12/25/18 at 17:30 Insulin Human Lispro (HumaLOG INSULIN) See Protocol Table QHS SC ; Start 12/25/18 at 21:00 Levothyroxine Sodium (Synthroid) 88 mcg DAILY@06 PO Last administered on 12/28/18at 06:00; Start 12/26/18 at 06:00 Losartan Potassium (Cozaar) 50 mg DAILY PO Last administered on 12/27/18 09:42; Start 12/26/18 at 09:00 Lurasidone HCl (Latuda) 80 mg DAILY@1800 PO Last administered on 12/27/18 17:00; Start 12/27/18 at 18:00 Lurasidone HCl (Latuda) 120 mg DAILY@1800 PO Last administered on 12/26/18at 18:27; Start 12/25/18 at 18:00; Stop 12/27/18 at 15:08; Status DC Magnesium Hydroxide (Milk Of Magnesia) 30 ml DAILYPRN PRN PO CONSTIPATION; Start 12/25/18 at 15:15 Methocarbamol (Robaxin) 500 mg TID PO Last administered on 12/27/18at 21:52; Start 12/25/18 at 16:00 Metoprolol Succinate (TopROL XL) 50 mg QHS PO Last administered on 12/27/18at 21:53; Start 12/25/18 at 21:00 Metoprolol Tartrate (Lopressor) 50 mg QHS PO ; Start 12/25/18 at 21:00; Status UNV Nystatin (Mycostatin) APPLY TO ABDOMINAL FOLDS BID TOP Last administered on 12/27/18at 22:04; Start 12/25/18 at 21:00 Omeprazole (PriLOSEC) 20 mg BID PO Last administered on 12/27/18at 21:52; Start 12/25/18 at 21:00 Trazodone HCl (Desyrel) 50 mg QHSP PRN PO INSOMNIA Last administered on 12/25/18at 22:10; Start 12/25/18 at 15:15 Vitamin D (Vitamin D) 2,000 units DAILY PO Last administered on 12/27/18at 09:40; Start 12/26/18 at 09:00 Allergies Coded Allergies: Sulfa (Sulfonamide Antibiotics) (Verified Allergy, Intermediate, 12/25/18) clindamycin (Verified Allergy, Intermediate, 12/25/18) loperamide (Verified Allergy, Intermediate, 12/25/18) SRAVANTHI LARKIN DO Dec 28, 2018 8:53 am
[2018-12-28 09:22] LABS: VALPROIC ACID (DEPAKOTE) 94.3 UG/ML (50.0-100.0)
[2018-12-28] MEDS: ALBUTEROL 90 MCG/ACT 8GM HFA INHALER INH PRN ×2 (09:35→16:35)
[2018-12-28] MEDS: FAMOTIDINE 20 MG TAB PO SCH ×2 (09:36→20:50)
[2018-12-28] MEDS: OMEGA-3 1000MG CAPSULE PO SCH ×2 (09:36→20:48)
[2018-12-28] MEDS: VITAMIN D 1,000 INTERNATIONAL UNITS TABLET PO SCH (09:36)
[2018-12-28] MEDS: DIVALPROEX 250 MG TAB PO SCH ×2 (09:36→20:49)
[2018-12-28] MEDS: OMEPRAZOLE 20 MG CAP PO SCH ×2 (09:36→22:39)
[2018-12-28] MEDS: clonazePAM 1 MG TAB PO SCH ×2 (09:36→20:50)
[2018-12-28] MEDS: LOSARTAN 50 MG TAB PO SCH (09:38)
[2018-12-28] MEDS: ARIPiprazole 2 MG TAB PO SCH (09:38)
[2018-12-28] MEDS: CitaloPRAM (CeleXA) 10 MG TABLET PO SCH (09:39)
[2018-12-28] MEDS: ASPIRIN 81 MG ENTERIC TAB PO SCH (09:39)
[2018-12-28] MEDS: METHOCARBAMOL 500 MG TAB PO SCH ×3 (09:39→20:49)
[2018-12-28] MEDS: FLUTICASONE PROP 0.05% NASAL SPRAY 16 GM (FLONASE) NARES SCH (09:39)
[2018-12-28] MEDS: POLYVINYL ALCOHOL OPHTH SOLN 15 ML(LIQUITEARS) OU SCH ×4 (09:39→20:48)
[2018-12-28] MEDS: NYSTATIN OINTMENT 15 GM TOP SCH ×2 (13:42→20:49)
--- NOTE | 2018-12-28 15:38 | IPNPDOC ---
Date Seen The patient was seen on 12/28/18. Progress Note SUBJECTIVE: Patient continues to complain about pain in her Rt knee, she tells me that she has had some intermittent sob she also tells me that she has not been getting her prn albuterol until this AM but that did help her significantly. Vitals: Please see below GEN: Alert and oriented x 3. Pleasant, interactive, obese and disheveled, appears more energetic today HEENT: Normocephalic, atraumatic. Pupils are equal, round, and reactive to light. Extraocular movements are intact. EACs both patent BL. TMs both visualized and tovar with good cone of light, no bulging or erythema. No facial asymmetry. Moist mucous membranes. Dentition fair. Pharynx pink and moist. No lymphadenopathy or thyromegaly appreciated. CHEST: Regular rate and rhythm, +S1, +S2 LUNGS: Clear to auscultation bilaterally. No wheezes, rales, or rhonchi. Breathing appears symmetric and easy. Patient is speaking in full sentences. No accessory muscle use. ABD: Round, soft, non-tender, non-distended. +Bowel sounds throughout. No rebound or guarding. No costovertebral angle tenderness. EXT: Pulses 2+ bilaterally dorsalis pedis and radial. No lower extremity edema appreciated. SKIN: [place], dry, warm. Capillary refill <2sec. No rashes. NEURO: Alert and oriented x 3. Cranial nerves III-XII are intact. No focal deficits appreciated. Labs below A&P: 47 y/oF admitted [facility] 1. Rt knee pain: osteoarthritis as expected on plain film. Likely secondary to recent weight gain, discussed dietary changes. Will provide prn pain control, if persists consider outpatient ortho cons. 2. GERD. Continue ranitidine twice a day. 3. DM 2. c/w ISS and FS, will add on A1c I suspect poor control Consistent carbohydrate diet. 4. Follow up with PCP on discharge. 5. Hypertension. cont home losartan Continue metoprolol 50 mg daily. Continue aspirin 81 mg daily. 6. Asthma. stable, her SOB likely secondary to asthma, rec providing albuterol as ordered 7. Allergic rhinitis. Continue Zyrtec 10 mg daily. Continue Flonase 1 spray each nostril daily. 8. Hypothyroidism. Continue levothyroxine 88 g by mouth daily. TSH is noted within normal limits. 9. History of iron deficiency anemia. Continue iron supplement.Not anemic at this time 10. Elevated Depakote level: no hx of seizures, agree with taper, repeats within acceptable limits rec. continuing at this current dosing 10. Female Staff member present throughout exam. f/u with PCP upon discharge, please call with any specific questions VS, I&O, 24H, Fishbone Vital Signs/I&O Vital Signs Date Time Temp Pulse Resp B/P (MAP) Pulse Ox O2 Delivery O2 Flow Rate FiO2 12/28/18 09:38 174/80 12/28/18 07:02 97.8 75 16 12/25/18 16:40 97 12/25/18 16:09 Room Air Laboratory Data 24H LABS Laboratory Tests 2 12/27/18 16:56: Bedside Glucose (Misc Panel) 131H 12/27/18 17:22: Valproic Acid (Depakene) Level 105.9H 12/27/18 21:57: Bedside Glucose (Misc Panel) 150H 12/28/18 05:52: Bedside Glucose (Misc Panel) 172H 12/28/18 07:21: Anion Gap 7L, Glomerular Filtration Rate > 60.0, Blood Urea Nitrogen 10, Creatinine 0.77, Sodium Level 140, Potassium Level 4.3, Chloride Level 104, Carbon Dioxide Level 29, Calcium Level 9.0, Aspartate Amino Transf (AST/SGOT) 14, Alanine Aminotransferase (ALT/SGPT) 24, Alkaline Phosphatase 55, Total Marvin irubin 0.3, Triglycerides Level 116, LDL Cholesterol 128H, Total Protein 6.2L, Albumin 3.2, Albumin/Globulin Ratio 1.07, Total Cholesterol 193, Non-HDL Cholesterol (LDL + VLDL) 151, Total HDL Cholesterol 42, Cholesterol/HDL Ratio 4.595, Valproic Acid (Depakene) Level 94.3 12/28/18 11:58: Bedside Glucose (Misc Panel) 177H CBC/BMP Laboratory Tests 12/28/18 07:21 Calcium Level 9.0, Aspartate Amino Transf (AST/SGOT) 14, Alanine Aminotransferase (ALT/SGPT) 24, Alkaline Phosphatase 55, Total Bilirubin 0.3, Triglycerides Level 116, LDL Cholesterol 128 H, Total Protein 6.2 L, Albumin 3.2 DERRICK POWERS MD Dec 28, 2018 15:38
[2018-12-28] MEDS: LURASIDONE HCL 40 MG TAB (LATUDA) PO SCH (17:39)
[2018-12-28 18:38] VITALS: BP 184/90
[2018-12-28] MEDS: METOPROLOL SUCC (TopROL XL) 50MG **XL** TAB PO SCH (20:50)
[2018-12-28] MEDS: FOLIC ACID 1 MG TAB PO SCH (20:50)
[2018-12-28] MEDS: CETIRIZINE (ZyrTEC) 10 MG TAB PO SCH (20:50)
[2018-12-29] MEDS: HumaLOG INSULIN (NovoLOG) PER UNIT SC SCH ×4 (06:27→21:00)
[2018-12-29] MEDS: LEVOTHYROXINE 88MCG TABLET (0.088 MG) PO SCH (06:27)
[2018-12-29 06:35] VITALS: BP 140/78
[2018-12-29] MEDS: DIVALPROEX 250 MG TAB PO SCH ×2 (09:44→21:34)
[2018-12-29] MEDS: LOSARTAN 50 MG TAB PO SCH (09:44)
[2018-12-29] MEDS: ASPIRIN 81 MG ENTERIC TAB PO SCH (09:44)
[2018-12-29] MEDS: OMEGA-3 1000MG CAPSULE PO SCH ×2 (09:44→21:33)
[2018-12-29] MEDS: OMEPRAZOLE 20 MG CAP PO SCH ×2 (09:44→21:34)
[2018-12-29] MEDS: FERROUS SULFATE 325MG TAB PO SCH (09:45)
[2018-12-29] MEDS: METHOCARBAMOL 500 MG TAB PO SCH ×3 (09:45→21:32)
[2018-12-29] MEDS: CitaloPRAM (CeleXA) 10 MG TABLET PO SCH (09:45)
[2018-12-29] MEDS: ARIPiprazole 2 MG TAB PO SCH (09:45)
[2018-12-29] MEDS: VITAMIN D 1,000 INTERNATIONAL UNITS TABLET PO SCH (09:45)
[2018-12-29] MEDS: clonazePAM 1 MG TAB PO SCH ×2 (09:45→21:32)
[2018-12-29] MEDS: FAMOTIDINE 20 MG TAB PO SCH ×2 (09:45→21:32)
[2018-12-29] MEDS: POLYVINYL ALCOHOL OPHTH SOLN 15 ML(LIQUITEARS) OU SCH ×4 (09:47→21:00)
[2018-12-29] MEDS: NYSTATIN OINTMENT 15 GM TOP SCH ×2 (09:48→21:00)
[2018-12-29] MEDS: FLUTICASONE PROP 0.05% NASAL SPRAY 16 GM (FLONASE) NARES SCH (09:48)
[2018-12-29] MEDS: ALBUTEROL 90 MCG/ACT 8GM HFA INHALER INH PRN ×2 (10:00→16:56)
--- NOTE | 2018-12-29 10:50 | MHIPNPDOC ---
[facility] Progress Note Progress Note DATE OF SERVICE: 12/29/18 HISTORY: As per Dr. Seay: "The staff at [facility] observed the patient deteriorating, her depression getting worse, and brought her to the emergency room. During my evaluation, the patient supports that she felt that she did not want to live anymore. Recently her doctor has increased her Depakote, which is not helping her. The patient reports her depression has been for the last two months, but has worsened in the last two weeks. Her energy level has decreased. She has no interest in any daily activities or in hobbies. She complains of hypersomnia and hyperphagia, and passive suicidal thoughts "I feel as thought I don't want to live anymore." The patient has a diagnosis of bipolar disorder, however recently mostly she has been depressed. Her stressors being family discord." VITAL SIGNS: See below. NEW TEST RESULTS: depakote lvl 94.3, glu 166, ldl 128 all others wnl CURRENT MEDICATIONS: See below. MENTAL STATUS EXAMINATION: Patient is a 48 year old female, who is alert, cooperative, dressed in hospital clothes, no longer fatigued Speech: slow, low volume, normal tone, limited. Language skills are fair Thought processes including: less slow, concrete, depressed. Thought content: less Depressive, hopeless, helpless thoughts, mostly related to losing her children Description of abnormal or psychotic thoughts: She denies suicidal ideation, denies thought delusions, denies homicidal ideation denies AV hallucinations. Less depressive thoughts, hopeless, helpless guilty thoughts Judgment: Limited Insight: Limited Orientation: x 3. Recent and remote memory: limited, she can't remember some recent past events but this could be related to depression. Attention span and concentration: fair Language: normal Fund of knowledge: under average Mood: less depressed Affect: less depressed, less sad, congruent with mood. DIAGNOSES: 1. bipolar 1 disorder, depressed 2. borderline personality disorder 3. Borderline intellectual functioning ASSESSMENT: Patient seen and states her mood is a bit better. She's smiling this morning and active in group. Appears to be improving well. States she's tolerating her medication well and feels it's beneficial. Is no longer isolative to her room and bed. Denies SI/HI, hallucinations, delusions. Denies SI/HI, hallucinations, delusions. Feels safe here. MANAGEMENT PLAN: continue plan TIME SPENT: 20 minutes. Vital Signs Vital Signs Date Time Temp Pulse Resp B/P (MAP) Pulse Ox O2 Delivery O2 Flow Rate FiO2 12/29/18 09:44 140/78 12/29/18 06:35 99.2 80 16 12/25/18 16:40 97 12/25/18 16:09 Room Air Laboratory Data 24H Labs Laboratory Tests 2 12/28/18 11:58: Bedside Glucose (Misc Panel) 177H 12/28/18 16:33: Bedside Glucose (Misc Panel) 196H 12/28/18 21:05: Bedside Glucose (Misc Panel) 185H 12/29/18 06:04: Bedside Glucose (Misc Panel) 173H Current Medications Current Medications Acetaminophen (Tylenol Tab) 650 mg Q6HP PRN PO HEADACHE or DISCOMFORT Last administered on 12/27/18 09:56; Start 12/25/18 at 15:15 Al Hydrox/Mg Hydrox/Simethicone (Mylanta) 30 ml Q4HP PRN PO HEARTBURN/INDIGESTION; Start 12/25/18 at 15:15 Albuterol Sulfate (Proventil, Ventolin Hfa) 2 puff Q6HP PRN INH SHORTNESS OF BREATH Last administered on 12/29/18 10:00; Start 12/26/18 at 20:45 Aripiprazole (AbiLIFY) 2 mg QAM PO Last administered on 12/29/18 09:45; Start 12/28/18 at 09:00 Aripiprazole (AbiLIFY) 2.5 mg BID PO ; Start 12/27/18 at 21:00; Stop 12/27/18 at 21:00; Status DC Aripiprazole (AbiLIFY) 5 mg QHS PO Last administered on 12/28/18 20:50; Start 12/27/18 at 21:00 Artificial Tears ([place] Tears) 2 drop QID OU Last administered on 12/29/18 09:47; Start 12/25/18 at 21:00 Aspirin (Ecotrin) 81 mg QAM PO Last administered on 12/29/18 09:44; Start 12/26/18 at 09:00 Cetirizine HCl (ZyrTEC) 10 mg QHS PO Last administered on 12/28/18 20:50; Start 12/26/18 at 21:00 Citalopram Hydrobromide (CeleXA) 10 mg DAILY PO Last administered on 12/27/18 09:40; Start 12/26/18 at 09:30; Stop 12/27/18 at 15:23; Status DC Citalopram Hydrobromide (CeleXA) 15 mg DAILY PO Last administered on 12/29/18 09:45; Start 12/28/18 at 09:00 Clonazepam (KlonoPIN) 1 mg BID PO Last administered on 12/29/18 09:45; Start 12/25/18 at 21:00 Divalproex Sodium (Depakote) 250 mg BID PO Last administered on 12/26/18 08:19; Start 12/25/18 at 21:00; Stop 12/26/18 at 09:28; Status DC Divalproex Sodium (Depakote) 750 mg BID PO Last administered on 12/29/18 09:44; Start 12/27/18 at 21:00 Divalproex Sodium (Depakote) 1,000 mg BID PO Last administered on 12/27/18 09:41; Start 12/25/18 at 21:00; Stop 12/27/18 at 13:55; Status DC Famotidine (Pepcid) 20 mg BID PO Last administered on 12/29/18 09:45; Start 12/26/18 at 21:00 Ferrous Sulfate (Ferrous Sulfate) 325 mg Q2D PO Last administered on 12/29/18 09:45; Start 12/27/18 at 09:00 Fish Oil ([place]-3 (1000mg)) 2 cap BID PO Last administered on 12/29/18 09:44; Start 12/25/18 at 21:00 Fluticasone Propionate (Flonase 0.05% Nasal [place]) 2 spray DAILY NARES Last administered on 12/29/18 09:48; Start 12/26/18 at 09:00 Folic Acid (Folic Acid) 1 mg QHS PO Last administered on 12/28/18 20:50; Start 12/26/18 at 21:00 Glucagon (Glucagon) 1 mg ASDIRECTED PRN SC SEE LABEL COMMENTS; Start 12/25/18 at 15:30 Glucose (Glucose) 16 GM ASDIRECTED PRN PO SEE LABEL COMMENTS; Start 12/25/18 at 15:30 Home Med (Med Rec Complete!) ASDIRECTED XX ; Start 12/25/18 at 16:15; Stop 12/25/18 at 16:38; Status DC Hydroxyzine HCl (Atarax) 50 mg Q6HP PRN PO ANXIETY/AGITATION Last administered on 12/26/18 17:21; Start 12/25/18 at 15:30 Insulin Human Lispro (HumaLOG INSULIN) See Protocol Table AC SC Last administered on 12/28/18at 16:39; Start 12/25/18 at 17:30 Insulin Human Lispro (HumaLOG INSULIN) See Protocol Table QHS SC ; Start 12/25/18 at 21:00 Levothyroxine Sodium (Synthroid) 88 mcg DAILY@06 PO Last administered on 12/29/18 06:27; Start 12/26/18 at 06:00 Losartan Potassium (Cozaar) 50 mg DAILY PO Last administered on 12/29/18 09:44; Start 12/26/18 at 09:00 Lurasidone HCl (Latuda) 80 mg DAILY@1800 PO Last administered on 12/28/18 17:39; Start 12/27/18 at 18:00 Lurasidone HCl (Latuda) 120 mg DAILY@1800 PO Last administered on 12/26/18 18:27; Start 12/25/18 at 18:00; Stop 12/27/18 at 15:08; Status DC Magnesium Hydroxide (Milk Of Magnesia) 30 ml DAILYPRN PRN PO CONSTIPATION; Start 12/25/18 at 15:15 Methocarbamol (Robaxin) 500 mg TID PO Last administered on 12/29/18 09:45; Start 12/25/18 at 16:00 Metoprolol Succinate (TopROL XL) 50 mg QHS PO Last administered on 12/28/18 20:50; Start 12/25/18 at 21:00 Metoprolol Tartrate (Lopressor) 50 mg QHS PO ; Start 12/25/18 at 21:00; Status UNV Nystatin (Mycostatin) APPLY TO ABDOMINAL FOLDS BID TOP Last administered on 12/29/18 09:48; Start 12/25/18 at 21:00 Omeprazole (PriLOSEC) 20 mg BID PO Last administered on 4/14/19at 09:44; Start 12/25/18 at 21:00 Trazodone HCl (Desyrel) 50 mg QHSP PRN PO INSOMNIA Last administered on 12/25/18at 22:10; Start 12/25/18 at 15:15 Vitamin D (Vitamin D) 2,000 units DAILY PO Last administered on 12/29/18at 09:45; Start 12/26/18 at 09:00 Allergies Coded Allergies: Sulfa (Sulfonamide Antibiotics) (Verified Allergy, Intermediate, 12/25/18) clindamycin (Verified Allergy, Intermediate, 12/25/18) loperamide (Verified Allergy, Intermediate, 12/25/18) SRAVANTHI LARKIN DO Dec 29, 2018 10:50
[2018-12-29] MEDS ORDERED: FUROSEMIDE 20 MG TAB PO ONE (12:00)
[2018-12-29] MEDS: hydroCHLOROthiazide 25 MG TAB PO SCH (12:20)
[2018-12-29] MEDS: LURASIDONE HCL 40 MG TAB (LATUDA) PO SCH (17:36)
[2018-12-29 18:29] VITALS: BP 167/79
[2018-12-29] MEDS: CETIRIZINE (ZyrTEC) 10 MG TAB PO SCH (21:32)
[2018-12-29] MEDS: METOPROLOL SUCC (TopROL XL) 50MG **XL** TAB PO SCH (21:33)
[2018-12-29] MEDS: FOLIC ACID 1 MG TAB PO SCH (21:34)
[2018-12-30] MEDS: LEVOTHYROXINE 88MCG TABLET (0.088 MG) PO SCH (06:09)
[2018-12-30] MEDS: HumaLOG INSULIN (NovoLOG) PER UNIT SC SCH ×4 (06:52→21:00)
[2018-12-30 07:12] VITALS: BP 161/78
[2018-12-30] MEDS: FLUTICASONE PROP 0.05% NASAL SPRAY 16 GM (FLONASE) NARES SCH (09:06)
[2018-12-30] MEDS: POLYVINYL ALCOHOL OPHTH SOLN 15 ML(LIQUITEARS) OU SCH ×4 (09:06→22:28)
[2018-12-30] MEDS: NYSTATIN OINTMENT 15 GM TOP SCH ×2 (09:06→23:00)
[2018-12-30] MEDS: LOSARTAN 50 MG TAB PO SCH (09:07)
[2018-12-30] MEDS: METHOCARBAMOL 500 MG TAB PO SCH ×3 (09:07→22:26)
[2018-12-30] MEDS: OMEGA-3 1000MG CAPSULE PO SCH ×2 (09:09→22:25)
[2018-12-30] MEDS: ARIPiprazole 2 MG TAB PO SCH (09:09)
[2018-12-30] MEDS: clonazePAM 1 MG TAB PO SCH ×2 (09:09→22:25)
[2018-12-30] MEDS: hydroCHLOROthiazide 25 MG TAB PO SCH (09:09)
[2018-12-30] MEDS: VITAMIN D 1,000 INTERNATIONAL UNITS TABLET PO SCH (09:09)
[2018-12-30] MEDS: ASPIRIN 81 MG ENTERIC TAB PO SCH (09:10)
[2018-12-30] MEDS: CitaloPRAM (CeleXA) 10 MG TABLET PO SCH (09:10)
[2018-12-30] MEDS: FAMOTIDINE 20 MG TAB PO SCH ×2 (09:10→22:26)
[2018-12-30] MEDS: OMEPRAZOLE 20 MG CAP PO SCH ×2 (09:10→22:25)
[2018-12-30] MEDS: DIVALPROEX 250 MG TAB PO SCH ×2 (09:10→22:25)
[2018-12-30] MEDS: ALBUTEROL 90 MCG/ACT 8GM HFA INHALER INH PRN ×2 (09:14→15:22)
[2018-12-30] MEDS ORDERED: BENZTROPINE 0.5 MG TAB PO PRN (13:30)
[2018-12-30] MEDS: LURASIDONE HCL 40 MG TAB (LATUDA) PO SCH (17:54)
[2018-12-30 18:00] VITALS: BP 133/73
--- NOTE | 2018-12-30 18:55 | MHIPNPDOC ---
[facility] Progress Note Progress Note DATE OF SERVICE: 12/30/18 HISTORY: As per Dr. Seay: "The staff at [facility] observed the patient deteriorating, her depression getting worse, and brought her to the emergency room. During my evaluation, the patient supports that she felt that she did not want to live anymore. Recently her doctor has increased her Depakote, which is not helping her. The patient reports her depression has been for the last two months, but has worsened in the last two weeks. Her energy level has decreased. She has no interest in any daily activities or in hobbies. She complains of hypersomnia and hyperphagia, and passive suicidal thoughts "I feel as thought I don't want to live anymore." The patient has a diagnosis of bipolar disorder, however recently mostly she has been depressed. Her stressors being family discord." VITAL SIGNS: See below. NEW TEST RESULTS: depakote lvl 94.3, glu 166, ldl 128 all others wnl CURRENT MEDICATIONS: See below. MENTAL STATUS EXAMINATION: Patient is a 48 year old female, who is alert, cooperative, dressed in hospital clothes, no longer fatigued Speech: slow, low volume, normal tone, limited. Language skills are fair Thought processes including: less depressed, less concrete, less slow Thought content: less depressive thoughts, more hopeful about her future Description of abnormal or psychotic thoughts: She denies suicidal ideation, denies thought delusions, denies homicidal ideation denies AV hallucinations. Less depressive thoughts, hopeless, helpless guilty thoughts Judgment: Limited Insight: Limited Orientation: x 3. Recent and remote memory: limited, she can't remember some recent past events but this could be related to depression. Attention span and concentration: fair Language: normal Fund of knowledge: under average Mood: less depressed Affect: less depressed, less sad, congruent with mood. DIAGNOSES: 1. bipolar 1 disorder, depressed 2. borderline personality disorder 3. Borderline intellectual functioning ASSESSMENT: Patient is improving, she says she feels better. Today this grant writer has increased her Abilify to 10 mgs PO QHS and 2 mgs PO QAM and have decreased her Latuda to 40 mgs. Ordered Cogentin 0.5 mgs PO BID PRN for EPS MANAGEMENT PLAN: As above. TIME SPENT: 20 minutes. Vital Signs Vital Signs Date Time Temp Pulse Resp B/P (MAP) Pulse Ox O2 Delivery O2 Flow Rate FiO2 12/30/18 18:00 98.4 88 18 133/73 (93) 97 12/25/18 16:09 Room Air Laboratory Data 24H Labs Laboratory Tests 2 12/29/18 21:25: Bedside Glucose (Misc Panel) 214H 12/30/18 06:11: Bedside Glucose (Misc Panel) 192H 12/30/18 06:44: Valproic Acid (Depakene) Level 83.3 12/30/18 11:54: Bedside Glucose (Misc Panel) 220H 12/30/18 17:08: Bedside Glucose (Misc Panel) 173H Current Medications Current Medications Acetaminophen (Tylenol Tab) 650 mg Q6HP PRN PO HEADACHE or DISCOMFORT Last administered on 12/27/18at 09:56; Start 12/25/18 at 15:15 Al Hydrox/Mg Hydrox/Simethicone (Mylanta) 30 ml Q4HP PRN PO HEARTBURN/INDIGESTION; Start 12/25/18 at 15:15 Albuterol Sulfate (Proventil, Ventolin Hfa) 2 puff Q6HP PRN INH SHORTNESS OF BREATH Last administered on 12/30/18at 15:22; Start 12/26/18 at 20:45 Aripiprazole (AbiLIFY) 2 mg QAM PO Last administered on 12/30/18at 09:09; Start 12/28/18 at 09:00; Stop 12/30/18 at 13:20; Status DC Aripiprazole (AbiLIFY) 2 mg QAM PO ; Start 12/31/18 at 09:00 Aripiprazole (AbiLIFY) 2.5 mg BID PO ; Start 12/27/18 at 21:00; Stop 12/27/18 at 21:00; Status DC Aripiprazole (AbiLIFY) 5 mg QAM PO ; Start 12/31/18 at 09:00; Stop 12/31/18 at 09:00; Status DC Aripiprazole (AbiLIFY) 5 mg QHS PO Last administered on 12/29/18at 21:33; Start 12/27/18 at 21:00; Stop 12/30/18 at 13:20; Status DC Aripiprazole (AbiLIFY) 10 mg QHS PO ; Start 12/30/18 at 21:00 Artificial Tears (Akwa Tears) 2 drop QID OU Last administered on 12/30/18 17:11; Start 12/25/18 at 21:00 Aspirin (Ecotrin) 81 mg QAM PO Last administered on 12/30/18 09:10; Start 12/26/18 at 09:00 Benztropine Mesylate (Cogentin) 0.5 mg BIDP PRN PO EXTRAPYRAMIDAL SIDE FFECTS; Start 12/30/18 at 13:30 Cetirizine HCl (ZyrTEC) 10 mg QHS PO Last administered on 12/29/18 21:32; Start 12/26/18 at 21:00 Citalopram Hydrobromide (CeleXA) 10 mg DAILY PO Last administered on 12/27/18 09:40; Start 12/26/18 at 09:30; Stop 12/27/18 at 15:23; Status DC Citalopram Hydrobromide (CeleXA) 15 mg DAILY PO Last administered on 12/30/18 09:10; Start 12/28/18 at 09:00 Clonazepam (KlonoPIN) 1 mg BID PO Last administered on 12/30/18 09:09; Start 12/25/18 at 21:00 Divalproex Sodium (Depakote) 250 mg BID PO Last administered on 12/26/18 08:19; Start 12/25/18 at 21:00; Stop 12/26/18 at 09:28; Status DC Divalproex Sodium (Depakote) 750 mg BID PO Last administered on 12/30/18 09:10; Start 12/27/18 at 21:00 Divalproex Sodium (Depakote) 1,000 mg BID PO Last administered on 12/27/18 09:41; Start 12/25/18 at 21:00; Stop 12/27/18 at 13:55; Status DC Famotidine (Pepcid) 20 mg BID PO Last administered on 12/30/18 09:10; Start 12/26/18 at 21:00 Ferrous Sulfate (Ferrous Sulfate) 325 mg Q2D PO Last administered on 12/29/18 09:45; Start 12/27/18 at 09:00 Fish Oil ([place]-3 (1000mg)) 2 cap BID PO Last administered on 12/30/18 09:09; Start 12/25/18 at 21:00 Fluticasone Propionate (Flonase 0.05% Nasal [place]) 2 spray DAILY NARES Last administered on 12/30/18at 09:06; Start 12/26/18 at 09:00 Folic Acid (Folic Acid) 1 mg QHS PO Last administered on 12/29/18at 21:34; Start 12/26/18 at 21:00 Glucagon (Glucagon) 1 mg ASDIRECTED PRN SC SEE LABEL COMMENTS; Start 12/25/18 at 15:30 Glucose (Glucose) 16 GM ASDIRECTED PRN PO SEE LABEL COMMENTS; Start 12/25/18 at 15:30 Home Med (Med Rec Complete!) ASDIRECTED XX ; Start 12/25/18 at 16:15; Stop 12/25/18 at 16:38; Status DC Hydrochlorothiazide (Hydrodiuril) 25 mg DAILY PO Last administered on 12/30/18at 09:09; Start 12/29/18 at 09:00 Hydroxyzine HCl (Atarax) 50 mg Q6HP PRN PO ANXIETY/AGITATION Last administered on 12/26/18at 17:21; Start 12/25/18 at 15:30 Insulin Human Lispro (HumaLOG INSULIN) See Protocol Table AC SC Last administered on 12/30/18at 17:10; Start 12/25/18 at 17:30 Insulin Human Lispro (HumaLOG INSULIN) See Protocol Table QHS SC ; Start 12/25/18 at 21:00 Levothyroxine Sodium (Synthroid) 88 mcg DAILY@06 PO Last administered on 12/30/18at 06:09; Start 12/26/18 at 06:00 Losartan Potassium (Cozaar) 50 mg DAILY PO Last administered on 12/30/18at 09:07; Start 12/26/18 at 09:00 Lurasidone HCl (Latuda) 40 mg DAILY@1800 PO Last administered on 12/30/18at 17:54; Start 12/30/18 at 18:00 Lurasidone HCl (Latuda) 80 mg DAILY@1800 PO Last administered on 12/29/18at 17:36; Start 12/27/18 at 18:00; Stop 12/30/18 at 13:18; Status DC Lurasidone HCl (Latuda) 120 mg DAILY@1800 PO Last administered on 12/26/18 18:27; Start 12/25/18 at 18:00; Stop 12/27/18 at 15:08; Status DC Magnesium Hydroxide (Milk Of Magnesia) 30 ml DAILYPRN PRN PO CONSTIPATION; Start 12/25/18 at 15:15 Methocarbamol (Robaxin) 500 mg TID PO Last administered on 12/30/18at 15:21; Start 12/25/18 at 16:00 Metoprolol Succinate (TopROL XL) 50 mg QHS PO Last administered on 12/29/18at 21:33; Start 12/25/18 at 21:00 Metoprolol Tartrate (Lopressor) 50 mg QHS PO ; Start 12/25/18 at 21:00; Status UNV Nystatin (Mycostatin) APPLY TO ABDOMINAL FOLDS BID TOP Last administered on 12/30/18 09:06; Start 12/25/18 at 21:00 Omeprazole (PriLOSEC) 20 mg BID PO Last administered on 12/30/18 09:10; Start 12/25/18 at 21:00 Trazodone HCl (Desyrel) 50 mg QHSP PRN PO INSOMNIA Last administered on 12/25/18at 22:10; Start 12/25/18 at 15:15 Vitamin D (Vitamin D) 2,000 units DAILY PO Last administered on 12/30/18 09:09; Start 12/26/18 at 09:00 Allergies Coded Allergies: Sulfa (Sulfonamide Antibiotics) (Verified Allergy, Intermediate, 12/25/18) clindamycin (Verified Allergy, Intermediate, 12/25/18) loperamide (Verified Allergy, Intermediate, 12/25/18) ALEC ROE MD Dec 30, 2018 18:54
[2018-12-30] MEDS ORDERED: ARIPiprazole 10 MG TAB PO SCH (21:00)
[2018-12-30] MEDS: FOLIC ACID 1 MG TAB PO SCH (22:25)
[2018-12-30] MEDS: CETIRIZINE (ZyrTEC) 10 MG TAB PO SCH (22:26)
[2018-12-30] MEDS: METOPROLOL SUCC (TopROL XL) 50MG **XL** TAB PO SCH (22:28)
[2018-12-31] MEDS: LEVOTHYROXINE 88MCG TABLET (0.088 MG) PO SCH (06:04)
[2018-12-31] MEDS: HumaLOG INSULIN (NovoLOG) PER UNIT SC SCH ×4 (06:44→21:00)
[2018-12-31 06:52] VITALS: BP 145/75
[2018-12-31] MEDS: FAMOTIDINE 20 MG TAB PO SCH ×2 (08:55→21:15)
[2018-12-31] MEDS: clonazePAM 1 MG TAB PO SCH ×2 (08:55→21:15)
[2018-12-31] MEDS: FLUTICASONE PROP 0.05% NASAL SPRAY 16 GM (FLONASE) NARES SCH (08:56)
[2018-12-31] MEDS: METHOCARBAMOL 500 MG TAB PO SCH ×3 (08:56→21:14)
[2018-12-31] MEDS: NYSTATIN OINTMENT 15 GM TOP SCH ×2 (08:57→21:00)
[2018-12-31] MEDS: POLYVINYL ALCOHOL OPHTH SOLN 15 ML(LIQUITEARS) OU SCH ×4 (08:57→21:18)
[2018-12-31] MEDS: DIVALPROEX 250 MG TAB PO SCH ×2 (08:58→21:13)
[2018-12-31] MEDS: CitaloPRAM (CeleXA) 10 MG TABLET PO SCH (08:58)
[2018-12-31] MEDS: VITAMIN D 1,000 INTERNATIONAL UNITS TABLET PO SCH (08:58)
[2018-12-31] MEDS: LOSARTAN 50 MG TAB PO SCH (08:59)
[2018-12-31] MEDS: OMEPRAZOLE 20 MG CAP PO SCH ×2 (08:59→21:16)
[2018-12-31] MEDS: hydroCHLOROthiazide 25 MG TAB PO SCH (08:59)
[2018-12-31] MEDS: FERROUS SULFATE 325MG TAB PO SCH (08:59)
[2018-12-31] MEDS: ASPIRIN 81 MG ENTERIC TAB PO SCH (08:59)
[2018-12-31] MEDS: OMEGA-3 1000MG CAPSULE PO SCH ×2 (09:00→21:12)
[2018-12-31] MEDS ORDERED: ARIPiprazole 2 MG TAB PO SCH (09:00)
[2018-12-31] MEDS: ALBUTEROL 90 MCG/ACT 8GM HFA INHALER INH PRN ×2 (09:05→15:19)
[2018-12-31] MEDS ORDERED: PILL CRUSHER/CUTTER 1 EACH XX PRN (09:45)
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
[2018-12-31] MEDS: LURASIDONE HCL 40 MG TAB (LATUDA) PO SCH (18:09)
[2018-12-31 18:35] VITALS: BP 131/75
[2018-12-31] MEDS: FOLIC ACID 1 MG TAB PO SCH (21:14)
[2018-12-31] MEDS: METOPROLOL SUCC (TopROL XL) 50MG **XL** TAB PO SCH (21:15)
[2018-12-31] MEDS: CETIRIZINE (ZyrTEC) 10 MG TAB PO SCH (21:16)
[2019-01-01] MEDS: LEVOTHYROXINE 88MCG TABLET (0.088 MG) PO SCH (06:09)
[2019-01-01] MEDS: HumaLOG INSULIN (NovoLOG) PER UNIT SC SCH ×2 (06:31→12:11)
[2019-01-01 07:02] VITALS: BP 105/67
[2019-01-01] MEDS: FLUTICASONE PROP 0.05% NASAL SPRAY 16 GM (FLONASE) NARES SCH (08:34)
[2019-01-01] MEDS: NYSTATIN OINTMENT 15 GM TOP SCH (08:34)
[2019-01-01] MEDS: ALBUTEROL 90 MCG/ACT 8GM HFA INHALER INH PRN (08:34)
[2019-01-01] MEDS: OMEGA-3 1000MG CAPSULE PO SCH (08:35)
[2019-01-01] MEDS: DIVALPROEX 250 MG TAB PO SCH (08:36)
[2019-01-01] MEDS: FAMOTIDINE 20 MG TAB PO SCH (08:36)
[2019-01-01] MEDS: VITAMIN D 1,000 INTERNATIONAL UNITS TABLET PO SCH (08:37)
[2019-01-01] MEDS: CitaloPRAM (CeleXA) 10 MG TABLET PO SCH (08:37)
[2019-01-01] MEDS: METHOCARBAMOL 500 MG TAB PO SCH (08:37)
[2019-01-01] MEDS: hydroCHLOROthiazide 25 MG TAB PO SCH (08:37)
[2019-01-01] MEDS: ASPIRIN 81 MG ENTERIC TAB PO SCH (08:38)
[2019-01-01] MEDS: OMEPRAZOLE 20 MG CAP PO SCH (08:38)
[2019-01-01] MEDS: clonazePAM 1 MG TAB PO SCH (08:38)
[2019-01-01 08:39] VITALS: BP 140/72
[2019-01-01] MEDS: POLYVINYL ALCOHOL OPHTH SOLN 15 ML(LIQUITEARS) OU SCH ×2 (08:39→12:12)
[2019-01-01] MEDS: LOSARTAN 50 MG TAB PO SCH (08:39)
[2019-01-01] MEDS ORDERED: ABIL1TAB11 PO ×2 (09:13)
[2019-01-01] MEDS ORDERED: BENZ0.5T PO (09:13)
[2019-01-01] MEDS ORDERED: DEPA250T32 PO (09:13)
[2019-01-01] MEDS ORDERED: CELE10TA PO (09:13)
[2019-01-01] MEDS ORDERED: TRAZO50TA PO (09:13)
[2019-01-01] MEDS ORDERED: NYST10OI TOP (09:13)
[2019-01-01] MEDS ORDERED: LATU40TA PO (09:13)
[2019-01-01] MEDS ORDERED: HYDR25TAB PO (09:13)
[2019-01-01] MEDS ORDERED: CELE20TA PO (17:25)
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
== END 2019-01-01 12:57 | disposition home or self-care (01) | DRG 753 ==
LOC: M ED 11:38 → M ED INP 15:15 → M PSY 16:20
PROVIDERS: ADMIT Psychiatry & Neurology Psychiatry; ATTEND Psychiatry & Neurology Psychiatry
DX: F31.30 Bipolar disorder, current episode depressed, mild or moderate severity, unspecified (principal); I10 Essential (primary) hypertension; E11.9 Type 2 diabetes mellitus without complications; Z68.42 Body mass index [BMI] 45.0-49.9, adult; E03.9 Hypothyroidism, unspecified; D50.9 Iron deficiency anemia, unspecified; F41.9 Anxiety disorder, unspecified; F60.3 Borderline personality disorder; R41.83 Borderline intellectual functioning; Z79.899 Other long term (current) drug therapy; Z79.82 Long term (current) use of aspirin; Z79.4 Long term (current) use of insulin; Z88.2 Allergy status to sulfonamides; Z88.8 Allergy status to other drugs, medicaments and biological substances; E66.9 Obesity, unspecified; G47.33 Obstructive sleep apnea (adult) (pediatric); K58.9 Irritable bowel syndrome, unspecified; J45.909 Unspecified asthma, uncomplicated; K21.9 Gastro-esophageal reflux disease without esophagitis

== ENCOUNTER → 2019-01-28 | Outpatient (REF) | payer MEDICAID ==
[~2019-01-28] MED LIST changes: +ADME100I; +BASA100I SC; +BENZ0.5T PO; +CELE20TA PO; +DEPA1TAB3 PO; +DEPA250T32 PO; +IBUP1TAB6 PO; +LATU120T PO; +METH1TAB40 PO; +NYST10OI TOP; +TRAZO50TA PO
[2019-01-28 14:10] LABS: ALBUMIN 3.5 GM/DL (3.2-5.2); ALT/SGPT 25 U/L (12-78); BILIRUBIN,TOTAL 0.3 MG/DL (0.2-1.0); BLOOD UREA NITROGEN 12 MG/DL (7-18); CALCIUM LEVEL 9.3 MG/DL (8.5-10.1); CARBON DIOXIDE LEVEL 29 MEQ/L (21-32); CHLORIDE LEVEL 104 MEQ/L (98-107); CREATININE FOR GFR 0.82 MG/DL (0.55-1.30); GLOMERULAR FILTRATION RATE > 60.0 (>58); GLUCOSE, FASTING 189 MG/DL (70-100); POTASSIUM SERUM 3.7 MEQ/L (3.5-5.1); SODIUM LEVEL 141 MEQ/L (136-145); TOTAL PROTEIN 6.6 GM/DL (6.4-8.2)
[2019-01-28 14:33] LABS: HEMOGLOBIN A1c 7.7 %
== END ==
LOC: M LAB REF 13:16
PROVIDERS: ATTEND Nurse Practitioner Adult Health
DX: E87.6 Hypokalemia (principal); E11.9 Type 2 diabetes mellitus without complications

== ENCOUNTER → 2019-04-08 | Outpatient (REF) | payer OTHER, MEDICAID ==
[~2019-04-08] MED LIST changes: -BENZ0.5T PO; +BENZ0.5T23 PO; -TRAZ-160 PO; +TRAZ-252 PO; +TRAZ1TAB10 PO; -TRAZO50TA PO
[2019-04-08 16:42] LABS: URINE PREG TEST NEGATIVE (NEGATIVE)
[2019-04-08 17:23] LABS: MAU/CREAT RATIO 5.8 MCG/MG (0.0-30.0)
[2019-04-08 18:14] LABS: CHLAMYDIA DNA AMPLIFICATION NEGATIVE (NEGATIVE); GC DNA AMPLIFICATION NEGATIVE (NEGATIVE)
== END ==
LOC: M LAB REF 15:38
PROVIDERS: ATTEND Nurse Practitioner Adult Health
DX: Z72.51 High risk heterosexual behavior (principal)

== ENCOUNTER → 2019-04-12 | Outpatient (CLI) | payer OTHER ==
--- NOTE | 2019-04-12 09:51 | REP ---
Right knee MRI: Comparison is the plain film study dated 12/27/2018. The C study today is performed with proton density and T2 data sets in sagittal, axial and coronal projections. There is tricompartment osteoarthritis with associated chondromalacia. There is a severe chondromalacia of the patellar lateral facet. There is a chondral defect measuring 10 mm transversely. There is associated patellar marrow edema. There is a cartilaginous defect along the weightbearing surface of the lateral femoral condyle measuring 9 mm transversely by 9 mm AP. There is a Cardiolite is effect along weightbearing surface of the medial femoral condyle measuring 9 mm transversely by 12 mm AP. There is no marrow edema associated with the cartilaginous defects of the femoral condyles. The cartilage of the trochlea is unremarkable. There is mild/moderate chondromalacia of the tibial plateau articular cartilage. There is a joint effusion. There is no Mason's cyst. The anterior and posterior cruciate ligaments are unremarkable. The medial lateral collateral ligaments are unremarkable. The quadriceps and patellar tendons are unremarkable. The medial lateral menisci are unremarkable. Impression: Tricompartment osteoarthritis with associated chondromalacia. There are cartilaginous defects in the patellar lateral facet, lateral femoral condyle and medial femoral condyle, most severe in the patellar lateral facet. There is a joint effusion. There is no Mason's cyst. Electronically Signed by Tres Brown MD 04/12/2019 09:42 A
--- NOTE | 2019-04-12 09:57 | REP ---
Left knee MRI: There are no comparison studies. The studies performed with proton density and T2 data sets in sagittal, axial and coronal projections. There is a joint effusion. There is no Mason's cyst. There is tricompartment osteoarthritis with associated chondromalacia. There is surface irregularity of the patellar articular cartilage. There is subcortical marrow edema in the patellar lateral facet. There is surface irregularity of the medial lateral femoral condyle articular cartilage and medial lateral tibial plateau articular cartilage. There are no cartilaginous defects. There is no subcortical marrow edema. There are small osteophytes at the joint margins of all three compartments. The The medial lateral menisci are unremarkable. The anterior posterior cruciate ligaments are unremarkable. The medial lateral collateral ligaments are unremarkable. The quadriceps and patellar tendons are. Impression: Tricompartment osteoarthritis with associated chondromalacia , most severe in the patellar articular cartilage. Joint effusion. No Mason's cyst. Otherwise, negative left knee MRI. Electronically Signed by Tres Brown MD 04/12/2019 09:48 A
== END ==
LOC: M RAD 04-05 13:05
PROVIDERS: ATTEND Orthopaedic Surgery Sports Medicine
DX: M17.0 Bilateral primary osteoarthritis of knee (principal); M25.461 Effusion, right knee; M25.462 Effusion, left knee

== ENCOUNTER → 2019-04-18 | Outpatient (REF) | payer OTHER ==
[2019-04-18 17:58] LABS: URINE PREG TEST NEGATIVE (NEGATIVE)
[2019-04-18 18:32] LABS: MALB URINE SIEMENS 11.9 MG/L
[2019-04-18 20:04] LABS: CHLAMYDIA DNA AMPLIFICATION NEGATIVE (NEGATIVE); GC DNA AMPLIFICATION NEGATIVE (NEGATIVE)
== END ==
LOC: M LAB REF 17:08
PROVIDERS: ATTEND Nurse Practitioner Adult Health
DX: E11.9 Type 2 diabetes mellitus without complications (principal)

== ENCOUNTER → 2019-06-16 | Outpatient (RCR) | payer OTHER ==
[~2019-06-16] MED LIST changes: -ARTI99.0 OU; +ARTIDRO2 OU; +HYDR1TAB33 PO; -HYDRO50TAB PO
== END ==
LOC: M PT 06-11 13:38
PROVIDERS: ATTEND Orthopaedic Surgery Sports Medicine
DX: Z51.89 Encounter for other specified aftercare (principal); M17.0 Bilateral primary osteoarthritis of knee

== ENCOUNTER 2019-07-14 12:42 | Outpatient (RCR) | payer OTHER | END 2019-07-17 | LOC: M PT 12:42 | PROVIDERS: ATTEND Orthopaedic Surgery Sports Medicine | DX: M17.0 Bilateral primary osteoarthritis of knee (principal) ==

== ENCOUNTER → 2019-08-04 | Outpatient (REF) | payer OTHER ==
[2019-08-04 14:58] LABS: ALBUMIN 3.5 GM/DL (3.2-5.2); ALT/SGPT 62 U/L (12-78); BILIRUBIN,TOTAL 0.7 MG/DL (0.2-1.0); BLOOD UREA NITROGEN 11 MG/DL (7-18); CALCIUM LEVEL 9.2 MG/DL (8.5-10.1); CARBON DIOXIDE LEVEL 32 MEQ/L (21-32); CHLORIDE LEVEL 108 MEQ/L (98-107); CHOLESTEROL LEVEL 176 MG/DL (<200); CHOLESTEROL RISK RATIO 3.142 (<5); CREATININE FOR GFR 0.64 MG/DL (0.55-1.30); GLOMERULAR FILTRATION RATE > 60.0 (>58); GLUCOSE, FASTING 114 MG/DL (70-100); HDL CHOLESTEROL 56 MG/DL (>40); LDL CHOLESTEROL 108 MG/DL (<100); NON-HDL-C 120 MG/DL; POTASSIUM SERUM 3.9 MEQ/L (3.5-5.1); SODIUM LEVEL 144 MEQ/L (136-145); TRIGLYCERIDES LEVEL 60 MG/DL (<150)
[2019-08-04 19:19] LABS: HEMOGLOBIN A1c 7.4 %
== END ==
LOC: M LAB REF 13:27
PROVIDERS: ATTEND Family Medicine
DX: E11.9 Type 2 diabetes mellitus without complications (principal)

== ENCOUNTER → 2019-08-11 | Outpatient (CLI) | payer OTHER ==
--- NOTE | 2019-08-11 15:42 | REPMRS ---
Patient History The patient states she had a clinical breast exam in 2018.Family history of breast cancer in maternal grandmother. Benign stereotatic breast biopsy of the left breast, December 01, 2009. No Hormone Replacement Therapy 3D TOMOSYNTHESIS WAS PERFORMED. [facility] for [facility] 13.[facility]%. Digital Woman Screen Mammo: August 11, 2019 - Exam #: [id number] Bilateral CC and MLO view(s) were taken. Technologist: Tori John, Technologist Prior study comparison: June 25, 2018, bilateral digital woman screen mammo performed at [facility], [place]. May 14, 2014, digital woman screen mammo performed at [facility], [place]. FINDINGS: There are scattered fibroglandular densities. There has been no change in the appearance of the mammogram from the prior studies. There is a mild amount of residual fibroglandular tissue which is fairly symmetric. There is no interval development of dominant mass, architectural distortion, or clustered microcalcification suggestive of malignancy. Assessment: BI-RADS/ACR category 1 mammogram. Negative Mammogram. Recommendation Routine screening mammogram in 1 year (for women over age 40). This mammogram was interpreted with the aid of an FDA-approved computer-aided dectection system. Electronically Signed By: Tres Barraza MD 08/11/19 [id number]
== END ==
LOC: M WHC 13:33
PROVIDERS: ATTEND Nurse Practitioner Family
DX: Z12.31 Encounter for screening mammogram for malignant neoplasm of breast (principal); Z80.3 Family history of malignant neoplasm of breast

== ENCOUNTER 2019-08-13 13:00 | Outpatient (RCR) | payer OTHER | END 2019-08-16 | LOC: M PT 13:00 | PROVIDERS: ATTEND Orthopaedic Surgery Sports Medicine | DX: Z47.89 Encounter for other orthopedic aftercare (principal) ==

== ENCOUNTER 2019-09-14 09:38 | Emergency (ER) | payer MEDICAID, OTHER ==
[~2019-09-14] VITALS: Ht 170.2 cm; Wt 137.7 kg
[~2019-09-14 09:38] MED LIST changes: -TRAZ-163 PO; +TRAZ-257 PO; -TRAZ10TA PO; +TRAZ1TAB12 PO
[2019-09-14] MEDS ORDERED: ATOR1TAB19 PO (10:08)
[2019-09-14 11:38] LABS: BASO % 0.5 % (0.0-1.0); EOS # 0.1 10^3/uL (0.0-0.5); EOS % 1.5 % (0.0-3.0); HEMATOCRIT 39.8 % (36.0-47.0); HEMOGLOBIN 13.5 g/dl (12.0-15.5); LYMPH # 2.4 10^3/uL (1.5-5.0); LYMPH % 30.3 % (24.0-44.0); MEAN CORPUSCULAR HEMOGLOBIN 30.1 pg (27.0-33.0); MEAN CORPUSCULAR HGB CONC 33.9 g/dl (32.0-36.5); MEAN CORPUSCULAR VOLUME 88.6 fl (80.0-96.0); MONO # 0.5 10^3/uL (0.0-0.8); MONO % 6.2 % (0.0-5.0); NEUTROPHILS # 4.9 10^3/uL (1.5-8.5); PLATELET COUNT, AUTOMATED 291 10^3/uL (150-450); RED BLOOD COUNT 4.49 10^6/uL (4.00-5.40)
[2019-09-14 11:59] LABS: HCG, SERUM QUALITATIVE NEGATIVE (NEGATIVE)
[2019-09-14 12:00] LABS: ALBUMIN 3.4 GM/DL (3.2-5.2); ALT/SGPT 41 U/L (12-78); BILIRUBIN,TOTAL 0.7 MG/DL (0.2-1.0); BLOOD UREA NITROGEN 9 MG/DL (7-18); CALCIUM LEVEL 8.8 MG/DL (8.5-10.1); CARBON DIOXIDE LEVEL 27 MEQ/L (21-32); CHLORIDE LEVEL 109 MEQ/L (98-107); CREATININE FOR GFR 0.63 MG/DL (0.55-1.30); GLOMERULAR FILTRATION RATE > 60.0 (>58); GLUCOSE, FASTING 110 MG/DL (70-100); POTASSIUM SERUM 3.4 MEQ/L (3.5-5.1); SODIUM LEVEL 142 MEQ/L (136-145); TOTAL PROTEIN 6.6 GM/DL (6.4-8.2)
--- NOTE | 2019-09-14 12:30 | REP ---
Clinical: Cough . Comparison: 01/15/2015 . Technique: PA and lateral. Findings: The mediastinum and cardiac silhouette are normal. The lung cifuentes are clear and without acute consolidation, effusion, or pneumothorax. The skeletal structures are intact and normal. Impression: 1. No acute cardiopulmonary process. Electronically Signed by Sourav Shelby MD 09/14/2019 12:22 P
[2019-09-14 13:00] VITALS: BP 142/68
[2019-09-14] MEDS ORDERED: MECL1TAB31 PO (13:08)
[2019-09-14] MEDS ORDERED: AUGM875T28 PO (13:08)
[2019-09-14] MEDS ORDERED: MECLIZINE 25 MG TABLET PO ONE (13:30)
[2019-09-14] MEDS ORDERED: AUGMENTIN 875 MG TAB PO ONE (13:30)
[2019-09-14 13:47] LABS: INFLUENZA A AMPLIFICATION NEGATIVE (NEGATIVE); INFLUENZA B AMPLIFICATION NEGATIVE (NEGATIVE)
--- NOTE | 2019-09-14 15:53 | ECGEPIP ---
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
== END 2019-09-14 13:41 | disposition home or self-care (01) ==
LOC: M ED 09:38 → EDBD 09:38 → M ED 13:41
DX: H66.91 Otitis media, unspecified, right ear (principal); R42 Dizziness and giddiness; R94.31 Abnormal electrocardiogram [ECG] [EKG]; R05 Cough; E11.9 Type 2 diabetes mellitus without complications; I10 Essential (primary) hypertension; K21.9 Gastro-esophageal reflux disease without esophagitis; Z88.1 Allergy status to other antibiotic agents; Z88.2 Allergy status to sulfonamides; Z88.9 Allergy status to unspecified drugs, medicaments and biological substances; Z79.82 Long term (current) use of aspirin; Z79.83 Long term (current) use of bisphosphonates; Z79.84 Long term (current) use of oral hypoglycemic drugs; Z79.891 Long term (current) use of opiate analgesic; Z79.899 Other long term (current) drug therapy

== ENCOUNTER → 2019-11-06 | Outpatient (REF) | payer OTHER, MEDICAID ==
[~2019-11-06] MED LIST changes: -ARTIDRO2 OU; +ATOR1TAB19 PO; +MECL1TAB31 PO; -MONT10TA2; -MONT10TA2 PO; +MONT10TA4; +MONT10TA4 PO; +POLYOPD OU
[2019-11-06 19:04] LABS: HEMOGLOBIN A1c 7.1 %
== END ==
LOC: M LAB REF 18:14
PROVIDERS: ATTEND Physician Assistant
DX: E11.9 Type 2 diabetes mellitus without complications (principal); Z79.4 Long term (current) use of insulin

== ENCOUNTER → 2019-12-18 | Outpatient (REF) | payer OTHER, MEDICAID ==
[2019-12-18 18:00] LABS: BASO # 0.1 10^3/uL (0.0-0.2); BASO % 0.6 % (0.0-1.0); EOS # 0.3 10^3/uL (0.0-0.5); EOS % 3.2 % (0.0-3.0); HEMATOCRIT 42.1 % (36.0-47.0); HEMOGLOBIN 13.9 g/dl (12.0-15.5); LYMPH # 2.7 10^3/uL (1.5-5.0); LYMPH % 33.3 % (24.0-44.0); MEAN CORPUSCULAR HEMOGLOBIN 28.9 pg (27.0-33.0); MEAN CORPUSCULAR VOLUME 87.5 fl (80.0-96.0); MONO # 0.6 10^3/uL (0.0-0.8); NEUTROPHILS # 4.5 10^3/uL (1.5-8.5); NEUTROPHILS % 55.7 % (36.0-66.0); PLATELET COUNT, AUTOMATED 307 10^3/uL (150-450); RED BLOOD COUNT 4.81 10^6/uL (4.00-5.40); WHITE BLOOD COUNT 8.1 10^3/uL (4.0-10.0)
[2019-12-18 18:05] LABS: ALBUMIN 3.7 GM/DL (3.2-5.2); ALT/SGPT 31 U/L (12-78); BILIRUBIN,TOTAL 0.8 MG/DL (0.2-1.0); BLOOD UREA NITROGEN 6 MG/DL (7-18); CALCIUM LEVEL 9.3 MG/DL (8.5-10.1); CARBON DIOXIDE LEVEL 33 MEQ/L (21-32); CHLORIDE LEVEL 105 MEQ/L (98-107); CREATININE FOR GFR 0.68 MG/DL (0.55-1.30); GLOMERULAR FILTRATION RATE > 60.0 (>58); GLUCOSE, FASTING 128 MG/DL (70-100); POTASSIUM SERUM 3.2 MEQ/L (3.5-5.1); SODIUM LEVEL 140 MEQ/L (136-145); TOTAL PROTEIN 7.1 GM/DL (6.4-8.2)
== END ==
LOC: M LAB REF 17:04
PROVIDERS: ATTEND Nurse Practitioner Family
DX: R42 Dizziness and giddiness (principal)

== ENCOUNTER → 2020-01-20 | Outpatient (REF) | payer OTHER, MEDICAID ==
[2020-01-20 12:20] LABS: ALBUMIN 3.5 GM/DL (3.2-5.2); ALT/SGPT 32 U/L (12-78); BILIRUBIN,TOTAL 0.7 MG/DL (0.2-1.0); BLOOD UREA NITROGEN 9 MG/DL (7-18); CALCIUM LEVEL 9.1 MG/DL (8.5-10.1); CARBON DIOXIDE LEVEL 27 MEQ/L (21-32); CHLORIDE LEVEL 104 MEQ/L (98-107); CREATININE FOR GFR 0.61 MG/DL (0.55-1.30); GLOMERULAR FILTRATION RATE > 60.0 (>58); GLUCOSE, FASTING 163 MG/DL (70-100); POTASSIUM SERUM 3.6 MEQ/L (3.5-5.1); SODIUM LEVEL 140 MEQ/L (136-145); TOTAL PROTEIN 6.9 GM/DL (6.4-8.2)
== END ==
LOC: M LAB REF 11:05
PROVIDERS: ATTEND Nurse Practitioner Family
DX: E87.6 Hypokalemia (principal)

== ENCOUNTER 2020-03-12 18:04 | Emergency (ER) | payer OTHER ==
[~2020-03-12] VITALS: Ht 170.2 cm; Wt 136.6 kg
[~2020-03-12 18:04] MED LIST changes: -AMOX875T PO; -DIFL150T PO; -POTA1TAB23; -TRUL0.5I SQ
[2020-03-12] MEDS ORDERED: AMOX875T PO (18:20)
[2020-03-12] MEDS ORDERED: DIFL150T PO (18:20)
[2020-03-12] MEDS ORDERED: TRUL0.5I SQ (18:20)
[2020-03-12] MEDS ORDERED: POTA1TAB23 (18:20)
[2020-03-12] MEDS ORDERED: NS 1,000 ML IV ONE (19:00)
[2020-03-12 19:17] LABS: BASO # 0.1 10^3/uL (0.0-0.2); BASO % 0.6 % (0.0-1.0); EOS # 0.2 10^3/uL (0.0-0.5); EOS % 1.6 % (0.0-3.0); HEMATOCRIT 40.2 % (36.0-47.0); HEMOGLOBIN 13.4 g/dl (12.0-15.5); LYMPH # 3.1 10^3/uL (1.5-5.0); LYMPH % 32.5 % (24.0-44.0); MEAN CORPUSCULAR HEMOGLOBIN 29.3 pg (27.0-33.0); MEAN CORPUSCULAR HGB CONC 33.3 g/dl (32.0-36.5); MONO # 0.7 10^3/uL (0.0-0.8); MONO % 7.2 % (0.0-5.0); NEUTROPHILS # 5.5 10^3/uL (1.5-8.5); NEUTROPHILS % 57.9 % (36.0-66.0); PLATELET COUNT, AUTOMATED 370 10^3/uL (150-450); RED BLOOD COUNT 4.57 10^6/uL (4.00-5.40); WHITE BLOOD COUNT 9.6 10^3/uL (4.0-10.0)
[2020-03-12] MEDS ORDERED: ISOVUE-370 76% 100ML VIAL As Ordered ONE (19:33)
[2020-03-12 19:34] LABS: ALBUMIN 3.5 GM/DL (3.2-5.2); BILIRUBIN,DIRECT 0.2 MG/DL (0.0-0.2); BILIRUBIN,TOTAL 0.6 MG/DL (0.2-1.0)
--- NOTE | 2020-03-12 20:09 | REPVR ---
PROCEDURE INFORMATION: Exam: CT Abdomen And Pelvis With Contrast Exam date and time: 03/12/2020 7:50 PM Age: 49 years old Clinical indication: Abdominal pain; Generalized; Additional info: Abd pain HX of pancreatitis TECHNIQUE: Imaging protocol: Computed tomography of the abdomen and pelvis with intravenous contrast. Radiation optimization: All CT scans at this facility use at least one of these dose optimization techniques: automated exposure control; mA and/or kV adjustment per patient size (includes targeted exams where dose is matched to clinical indication); or iterative reconstruction. Contrast material: ISOVUE 370; Contrast volume: 100 ml; Contrast route: INTRAVENOUS (IV); COMPARISON: CT ABD PELVIS W/O CONTRAST 05/28/2014 2:09 AM FINDINGS: Liver: Normal. No mass. Gallbladder and bile ducts: The gallbladder is incompletely distended. This is most likely related to incomplete fasting. Clinical correlation to exclude gallbladder pathology suggested. Pancreas: Normal. No ductal dilation. Spleen: Normal. No splenomegaly. Adrenals: Normal. No mass. Kidneys and ureters: Normal. No hydronephrosis. Stomach and bowel: Mild diverticulosis is present in the left colon. No diverticulitis. Appendix: No evidence of appendicitis. Intraperitoneal space: Unremarkable. No free air. No significant fluid collection. Vasculature: Unremarkable. No abdominal aortic aneurysm. Lymph nodes: Periportal lymphadenopathy measures up to 1.6 cm, left retroperitoneal lymphadenopathy measures up to 11 mm, and there is a 9 mm lymph node anterior to the distal abdominal aorta. Bladder: Unremarkable as visualized. Reproductive: Unremarkable as visualized. Bones/joints: The spine demonstrates mild degenerative changes. Posterior calcified disc protrusions results in a moderate central spinal stenosis at L1-L2 and L2-L3. Moderate central spinal stenosis at L4-L5. Soft tissues: Unremarkable. IMPRESSION: 1. The gallbladder is incompletely distended. This is most likely related to incomplete fasting. Clinical correlation to exclude gallbladder pathology suggested. 2. Mild diverticulosis is present in the left colon. No diverticulitis. Electronically signed by: Luis Enrique Pinto On 03/12/2020 20:09:04 PM
--- NOTE | 2020-03-12 21:52 | REPVR ---
PROCEDURE INFORMATION: Exam: US Abdomen, Limited; Right Upper Quadrant Exam date and time: 03/12/2020 9:38 PM Age: 49 years old Clinical indication: Abdominal pain; Acute; Additional info: Ruq pain R/O cholecystitis TECHNIQUE: Imaging protocol: US abdomen. Real time ultrasound with image documentation. Limited exam focused on the right upper quadrant. COMPARISON: GALLBLADDER US 05/28/2014 3:55 AM FINDINGS: Liver: The liver is diffusely echogenic relative to the right kidney, findings consistent with steatosis. Hepatomegaly. Gallbladder: Gallbladder unremarkable. Common bile duct: The common bile duct measures 6 mm. No mass or choledocholithiasis. Pancreas: Pancreas largely obscured by overlying bowel gas. Right kidney: Right kidney 14 x 7.2 x 6.5 cm. IMPRESSION: 1. Hepatic steatosis. 2. Normal gallbladder and biliary tree. Electronically signed by: Luis Enrique Pinto On 03/12/2020 21:52:40 PM
[2020-03-12 22:03] VITALS: BP 145/76
[2020-03-12] MEDS ORDERED: POTASSIUM CHLORIDE 10 MEQ SR TABLET PO ONE (22:15)
== END 2020-03-12 22:30 | disposition home or self-care (01) ==
LOC: M ED 18:04
DX: R10.9 Unspecified abdominal pain (principal); E87.6 Hypokalemia; K76.0 Fatty (change of) liver, not elsewhere classified; I10 Essential (primary) hypertension; E11.9 Type 2 diabetes mellitus without complications; E78.5 Hyperlipidemia, unspecified; F31.9 Bipolar disorder, unspecified; F41.9 Anxiety disorder, unspecified; Z79.4 Long term (current) use of insulin; Z79.82 Long term (current) use of aspirin; Z79.899 Other long term (current) drug therapy; Z88.1 Allergy status to other antibiotic agents; Z88.2 Allergy status to sulfonamides; Z88.8 Allergy status to other drugs, medicaments and biological substances
CPT/HCPCS: 74177; 76705; 80047; 80076; 81001; 83690; 85025; 96360; 96361; 99284; Q9967

== ENCOUNTER → 2020-03-12 | Outpatient (REF) | payer OTHER ==
[~2020-03-12] MED LIST changes: +AMOX875T PO; +DIFL150T PO; +POTA1TAB23; +TRUL0.5I SQ
== END ==
LOC: M PLALAB 15:13
PROVIDERS: ATTEND Nurse Practitioner Family
DX: N64.52 Nipple discharge (principal)

== ENCOUNTER → 2020-03-17 | Outpatient (REF) | payer OTHER ==
[~2020-03-17] MED LIST changes: +AMOX875T PO; +DIFL150T PO; +POTA1TAB23; +TRUL0.5I SQ
[2020-03-17 17:16] LABS: HEMOGLOBIN A1c 7.3 %
[2020-03-17 17:26] LABS: ALBUMIN 3.4 GM/DL (3.2-5.2); ALT/SGPT 29 U/L (12-78); BILIRUBIN,TOTAL 0.8 MG/DL (0.2-1.0); BLOOD UREA NITROGEN 9 MG/DL (7-18); CALCIUM LEVEL 9.5 MG/DL (8.5-10.1); CARBON DIOXIDE LEVEL 28 MEQ/L (21-32); CHLORIDE LEVEL 104 MEQ/L (98-107); CHOLESTEROL LEVEL 137 MG/DL (<200); CHOLESTEROL RISK RATIO 3.341 (<5); GLOMERULAR FILTRATION RATE > 60.0 (>58); GLUCOSE, FASTING 142 MG/DL (70-100); HDL CHOLESTEROL 41 MG/DL (>40); LDL CHOLESTEROL 80 MG/DL (<100); NON-HDL-C 96 MG/DL; POTASSIUM SERUM 3.7 MEQ/L (3.5-5.1); SODIUM LEVEL 138 MEQ/L (136-145); TOTAL PROTEIN 6.8 GM/DL (6.4-8.2); TRIGLYCERIDES LEVEL 81 MG/DL (<150)
== END ==
LOC: M LAB REF 16:10
PROVIDERS: ATTEND Physician Assistant
DX: E87.6 Hypokalemia (principal); E11.9 Type 2 diabetes mellitus without complications

== ENCOUNTER → 2020-03-22 | Outpatient (CLI) | payer OTHER ==
--- NOTE | 2020-03-22 14:46 | REP ---
DIAGNOSTIC MAMMOGRAM, RIGHT BREAST WITH 3D TOMOSYNTHESIS, RIGHT BREAST ULTRASOUND: HISTORY: Single episode of white nipple discharge with breast pain 2 weeks ago. No other episodes of nipple discharge. COMPARISON MAMMOGRAMS: 08/11/2019 as other prior exams. Family history of breast cancer in maternal grandmother. [facility] lifetime risk of breast cancer, 13.5%. MLO and CC views of the right breast are performed with 3D tomosynthesis. There is mild scattered fibroglandular tissue. There is no change since prior studies with no new mass or architectural distortion. No clustered microcalcifications are seen. Real-time sonographic evaluation of right breast performed in the retroareolar region. No cystic or solid nodule is seen. IMPRESSION: BIRADS 1: BI-RADS/ACR category 1 mammogram. Negative Mammogram. ACR 1 negative. No mammographic evidence of mass. There is no mammographic or sonographic evidence of retroareolar mass. Recommend followup bilateral mammogram 07/2020. This mammogram was interpreted with the aid of an FDA-approved computer-aided detection system. The patient states she/he had a clinical breast exam in 02/2020. The patient letter being requested is M2.
== END ==
LOC: M WHC 09:46
PROVIDERS: ATTEND Nurse Practitioner Family
DX: N64.52 Nipple discharge (principal); N64.4 Mastodynia; Z80.3 Family history of malignant neoplasm of breast
CPT/HCPCS: 76642; 77065; G0279

== ENCOUNTER 2020-04-15 11:15 | Outpatient (RCR) | payer OTHER ==
[~2020-04-15 11:15] MED LIST changes: -ASPI81TA85 PO; +ASPI81TA86 PO; +PANT40TA29 PO; -PANT40TA3 PO
== END 2020-04-16 ==
LOC: M PT 11:15
PROVIDERS: ATTEND Physician Assistant
DX: M51.26 Other intervertebral disc displacement, lumbar region (principal); M48.061 Spinal stenosis, lumbar region without neurogenic claudication

== ENCOUNTER → 2020-04-26 | Outpatient (REF) | payer OTHER, MEDICAID ==
[2020-06-09 16:25] LABS: HEMOGLOBIN A1c 6.7 %
[2020-06-09 16:26] LABS: ALBUMIN 3.6 GM/DL (3.2-5.2); ALT/SGPT 29 U/L (12-78); BILIRUBIN,TOTAL 0.7 MG/DL (0.2-1.0); BLOOD UREA NITROGEN 9 MG/DL (7-18); CARBON DIOXIDE LEVEL 32 MEQ/L (21-32); CHLORIDE LEVEL 107 MEQ/L (98-107); CHOLESTEROL LEVEL 147 MG/DL (<200); CHOLESTEROL RISK RATIO 3.127 (<5); CREATININE FOR GFR 0.72 MG/DL (0.55-1.30); GLOMERULAR FILTRATION RATE > 60.0 (>58); GLUCOSE, FASTING 157 MG/DL (70-100); HDL CHOLESTEROL 47 MG/DL (>40); LDL CHOLESTEROL 84 MG/DL (<100); NON-HDL-C 100 MG/DL; POTASSIUM SERUM 3.6 MEQ/L (3.5-5.1); SODIUM LEVEL 142 MEQ/L (136-145); TOTAL PROTEIN 7.2 GM/DL (6.4-8.2); TRIGLYCERIDES LEVEL 82 MG/DL (<150)
== END ==
LOC: M LAB REF 12:29
PROVIDERS: ATTEND Family Medicine Addiction Medicine
DX: E11.9 Type 2 diabetes mellitus without complications (principal)

== ENCOUNTER 2020-05-13 10:38 | Outpatient (RCR) | payer OTHER | END 2020-05-17 | LOC: M PT 10:38 | PROVIDERS: ATTEND Physician Assistant | DX: M51.26 Other intervertebral disc displacement, lumbar region (principal); M48.061 Spinal stenosis, lumbar region without neurogenic claudication ==

== ENCOUNTER 2020-06-15 11:15 | Outpatient (RCR) | payer OTHER | END 2020-06-16 | LOC: M PT 11:15 | PROVIDERS: ATTEND Physician Assistant | DX: M48.061 Spinal stenosis, lumbar region without neurogenic claudication (principal) ==

== ENCOUNTER 2020-07-04 18:06 | Emergency (ER) | payer OTHER, MEDICAID ==
[~2020-07-04] VITALS: Ht 170.2 cm; Wt 133.3 kg
[2020-07-04 19:22] VITALS: BP 138/80
[2020-07-04] MEDS ORDERED: hydrOXYzine 25 MG TAB PO ONE (20:00)
== END 2020-07-04 19:35 | disposition home or self-care (01) ==
LOC: M ED 18:06
DX: F41.9 Anxiety disorder, unspecified (principal); E11.9 Type 2 diabetes mellitus without complications; E78.5 Hyperlipidemia, unspecified; F31.9 Bipolar disorder, unspecified; Z79.899 Other long term (current) drug therapy; Z88.1 Allergy status to other antibiotic agents; Z88.2 Allergy status to sulfonamides

== ENCOUNTER 2020-07-05 01:31 | Emergency (ER) | payer MEDICAID, OTHER ==
[~2020-07-05] VITALS: Ht 170.2 cm; Wt 133.0 kg
[2020-07-05 01:32] VITALS: BP 131/72
== END 2020-07-05 02:58 | disposition home or self-care (01) ==
LOC: M ED 01:31
DX: F41.1 Generalized anxiety disorder (principal); G47.00 Insomnia, unspecified; F51.5 Nightmare disorder; E11.9 Type 2 diabetes mellitus without complications; I10 Essential (primary) hypertension; F33.9 Major depressive disorder, recurrent, unspecified; J45.909 Unspecified asthma, uncomplicated; Z88.1 Allergy status to other antibiotic agents; Z88.2 Allergy status to sulfonamides; Z79.899 Other long term (current) drug therapy

== ENCOUNTER → 2020-07-30 | Outpatient (REF) | payer OTHER, MEDICAID ==
[2020-07-30 14:04] LABS: HEMOGLOBIN A1c 6.6 %
[2020-07-30 14:09] LABS: ALT/SGPT 28 U/L (12-78); BILIRUBIN,TOTAL 1.1 MG/DL (0.2-1.0); BLOOD UREA NITROGEN 16 MG/DL (7-18); CALCIUM LEVEL 9.4 MG/DL (8.5-10.1); CARBON DIOXIDE LEVEL 33 MEQ/L (21-32); CHLORIDE LEVEL 105 MEQ/L (98-107); CHOLESTEROL LEVEL 156 MG/DL (<200); CHOLESTEROL RISK RATIO 2.294 (<5); CREATININE FOR GFR 0.77 MG/DL (0.55-1.30); GLOMERULAR FILTRATION RATE > 60.0 (>58); GLUCOSE, FASTING 131 MG/DL (70-100); HDL CHOLESTEROL 68 MG/DL (>40); LDL CHOLESTEROL 75 MG/DL (<100); NON-HDL-C 88 MG/DL; POTASSIUM SERUM 3.8 MEQ/L (3.5-5.1); SODIUM LEVEL 141 MEQ/L (136-145); TOTAL PROTEIN 7.6 GM/DL (6.4-8.2); TRIGLYCERIDES LEVEL 63 MG/DL (<150)
== END ==
LOC: M LAB REF 12:33
PROVIDERS: ATTEND Family Medicine Addiction Medicine
DX: E11.9 Type 2 diabetes mellitus without complications (principal)

== ENCOUNTER 2020-08-10 10:45 | Outpatient (RCR) | payer OTHER ==
[~2020-08-10 10:45] MED LIST changes: -MONT10TA4; -MONT10TA4 PO; +MONT5TAB2; +MONT5TAB2 PO
== END 2020-08-16 ==
LOC: M PT 10:45
PROVIDERS: ATTEND Orthopaedic Surgery Sports Medicine
DX: M75.42 Impingement syndrome of left shoulder (principal)

== ENCOUNTER 2020-08-17 10:41 | Outpatient (RCR) | payer OTHER | END 2020-09-16 | LOC: M PT 10:41 | PROVIDERS: ATTEND Orthopaedic Surgery Sports Medicine | DX: Z47.89 Encounter for other orthopedic aftercare (principal); M75.42 Impingement syndrome of left shoulder ==

== ENCOUNTER 2021-02-08 22:52 | Emergency (ER) | payer MEDICAID, OTHER ==
[~2021-02-08] VITALS: Ht 170.2 cm; Wt 128.4 kg
[~2021-02-08 22:52] MED LIST changes: +ASPI-569 PO; -ASPI81TAEC PO; -BUPR200T; -BUPR200T PO; +BUPR200T2; +BUPR200T2 PO; +GABA-282 PO; -GABA-843 PO; +HYDR-3490; +HYDR-3490 PO; -HYDR25TAB; -HYDR25TAB PO; +LISI10TA22 PO; -LISI10TA4 PO; +METH-1164 PO; -METH1TAB40 PO; +MONT10TA10; +MONT10TA10 PO; -MONT5TAB2; -MONT5TAB2 PO; +QUET50TA3 PO; -QUET5TAB PO
[2021-02-09 01:52] LABS: BASO % 0.5 % (0.0-1.0); EOS # 0.2 10^3/uL (0.0-0.5); EOS % 2.4 % (0.0-3.0); HEMATOCRIT 46.8 % (36.0-47.0); HEMOGLOBIN 15.7 g/dl (12.0-15.5); LYMPH # 2.8 10^3/uL (1.5-5.0); LYMPH % 35.8 % (24.0-44.0); MEAN CORPUSCULAR HEMOGLOBIN 28.7 pg (27.0-33.0); MEAN CORPUSCULAR HGB CONC 33.5 g/dl (32.0-36.5); MEAN CORPUSCULAR VOLUME 85.6 fl (80.0-96.0); MONO # 0.8 10^3/uL (0.0-0.8); MONO % 10.1 % (2.0-8.0); NEUTROPHILS % 50.9 % (36.0-66.0); PLATELET COUNT, AUTOMATED 332 10^3/uL (150-450); RED BLOOD COUNT 5.47 10^6/uL (4.00-5.40); WHITE BLOOD COUNT 7.8 10^3/uL (4.0-10.0)
[2021-02-09 02:25] LABS: HCG, SERUM QUALITATIVE NEGATIVE (NEGATIVE)
[2021-02-09 02:27] LABS: ALBUMIN 3.6 GM/DL (3.2-5.2); ALT/SGPT 110 U/L (12-78); BILIRUBIN,DIRECT 0.2 MG/DL (0.0-0.2); BILIRUBIN,TOTAL 0.6 MG/DL (0.2-1.0); BLOOD UREA NITROGEN 12 MG/DL (7-18); CALCIUM LEVEL 10.2 MG/DL (8.5-10.1); CARBON DIOXIDE LEVEL 27 MEQ/L (21-32); CHLORIDE LEVEL 105 MEQ/L (98-107); CK-MB VALUE MASS 1.3 NG/ML (<3.6); CPK CREATINE PHOSPHOKINASE 99 U/L (26-192); CREATININE FOR GFR 0.79 MG/DL (0.55-1.30); GLOMERULAR FILTRATION RATE > 60.0 (>58); GLUCOSE, FASTING 294 MG/DL (70-100); LIPASE 65 U/L (73-393); MB/CK RELATIVE INDEX 1.31 (< OR =4); POTASSIUM SERUM 3.9 MEQ/L (3.5-5.1); SODIUM LEVEL 141 MEQ/L (136-145); TOTAL PROTEIN 7.2 GM/DL (6.4-8.2); TROPONIN I < 0.02 NG/ML (< 0.10)
--- NOTE | 2021-02-09 05:49 | ECGEPIP ---
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
[2021-02-09] MEDS: GASTROGRAFIN SOLUTION 30ML PO SCH ×2 (06:45→06:47)
[2021-02-09] MEDS ORDERED: ISOVUE-370 76% 100ML VIAL As Ordered ONE (07:36)
--- NOTE | 2021-02-09 08:57 | REPVR ---
PROCEDURE INFORMATION: Exam: CT Abdomen And Pelvis With Contrast Exam date and time: 02/09/2021 7:52 AM Age: 50 years old Clinical indication: Abdominal pain; Additional info: Llq abd pain TECHNIQUE: Imaging protocol: Computed tomography of the abdomen and pelvis with contrast. Radiation optimization: All CT scans at this facility use at least one of these dose optimization techniques: automated exposure control; mA and/or kV adjustment per patient size (includes targeted exams where dose is matched to clinical indication); or iterative reconstruction. Contrast material: ISO 370; Contrast volume: 100 ml; Contrast route: INTRAVENOUS (IV); COMPARISON: CT ABD/PEL W/IV CONTRAST ONLY 03/12/2020 7:43 PM FINDINGS: Inferior thorax: No acute airspace or pleural disease. Liver: Fatty infiltration of the liver and stable 15 mm nodular hyperdensity in the right hepatic lobe. Gallbladder and bile ducts: No cholelithiasis or biliary ductal dilatation. Pancreas: No pancreatic mass or ductal dilatation. Spleen: Enlarged spleen measuring 13.1 cm in length. Adrenal glands: Unremarkable adrenals. Kidneys and ureters: Normal renal morphology. No hydronephrosis. Stomach and bowel: Questionable wall thickening in the nondistended stomach. Prominent stool and diverticula, without pericolonic inflammation. Appendix: No acute appendicitis. Intraperitoneal space: No significant free fluid. Vasculature: Normal caliber of the abdominal aorta. Lymph nodes: Multiple lymph nodes, predominantly subcentimeter in size. Urinary bladder: Normal bladder morphology. Reproductive: Punctate uterine and adnexal calcifications. Bones/joints: Schmorl's nodes, degenerative change, and calcified disc bulging. IMPRESSION: 1. No acute inflammatory process in the visualized abdomen or pelvis. 2. Additional findings as described above. Electronically signed by: Henry Urbina On 02/09/2021 08:56:39 AM
[2021-02-09] MEDS ORDERED: VENL150C43 (09:55)
[2021-02-09] MEDS ORDERED: ADME100I (09:55)
[2021-02-09] MEDS ORDERED: ONDA4TAB6 PO (10:35)
[2021-02-09 10:59] VITALS: BP 138/86
== END 2021-02-09 11:16 | disposition home or self-care (01) ==
LOC: M ED 22:52
DX: K52.9 Noninfective gastroenteritis and colitis, unspecified (principal); E11.9 Type 2 diabetes mellitus without complications; I10 Essential (primary) hypertension; K21.9 Gastro-esophageal reflux disease without esophagitis; N80.9 Endometriosis, unspecified; Z79.890 Hormone replacement therapy; Z79.82 Long term (current) use of aspirin; Z79.4 Long term (current) use of insulin; Z79.899 Other long term (current) drug therapy; Z79.51 Long term (current) use of inhaled steroids; Z88.2 Allergy status to sulfonamides; Z88.8 Allergy status to other drugs, medicaments and biological substances; Z88.1 Allergy status to other antibiotic agents; Z98.890 Other specified postprocedural states; Z87.19 Personal history of other diseases of the digestive system
CPT/HCPCS: 74177; 80048; 80076; 81001; 82550; 82553; 83690; 84703; 85025; 87086; 93005; 93041; 99285; Q9963; Q9967

== ENCOUNTER 2021-03-10 11:25 | Emergency (ER) | payer MEDICAID, OTHER ==
[~2021-03-10 11:25] MED LIST changes: +ONDA4TAB6 PO; +VENL150C43
[2021-03-10] MEDS ORDERED: NS 500 ML IV ONE (12:45)
[2021-03-10 13:20] LABS: HEMATOCRIT 44.8 % (36.0-47.0); HEMOGLOBIN 15.1 g/dl (12.0-15.5); MEAN CORPUSCULAR HGB CONC 33.7 g/dl (32.0-36.5); PLATELET COUNT, AUTOMATED 296 10^3/uL (150-450); RED BLOOD COUNT 5.21 10^6/uL (4.00-5.40); WHITE BLOOD COUNT 7.3 10^3/uL (4.0-10.0)
--- NOTE | 2021-03-10 13:37 | REP ---
INDICATION: CHEST PAIN. COMPARISON: Comparison chest x-ray September 14, 2019. TECHNIQUE: Portable upright AP chest radiograph. FINDINGS: The lungs are well inflated and free of infiltrate. Pleural angles are sharp. Heart size is normal. Pulmonary vasculature is not increased. EKG monitoring electrodes are seen. IMPRESSION: No active disease. <Electronically signed by Sincere Swartz > 03/10/21 [id number]
[2021-03-10 13:53] LABS: ALBUMIN 3.5 GM/DL (3.2-5.2); ALT/SGPT 140 U/L (12-78); BILIRUBIN,DIRECT 0.3 MG/DL (0.0-0.2); BLOOD UREA NITROGEN 12 MG/DL (7-18); CALCIUM LEVEL 9.5 MG/DL (8.5-10.1); CARBON DIOXIDE LEVEL 28 MEQ/L (21-32); CHLORIDE LEVEL 108 MEQ/L (98-107); CREATININE FOR GFR 0.63 MG/DL (0.55-1.30); GLOMERULAR FILTRATION RATE > 60.0 (>58); GLUCOSE, FASTING 174 MG/DL (70-100); HEMOGLOBIN A1c 9.4 %; LIPASE 96 U/L (73-393); POTASSIUM SERUM 3.7 MEQ/L (3.5-5.1); SODIUM LEVEL 141 MEQ/L (136-145); TOTAL PROTEIN 7.2 GM/DL (6.4-8.2)
[2021-03-10 14:53] LABS: ATYPICAL LYMPH 5 % (0-5); LYMPHOCYTES 27 % (16-44); MONOCYTES 9 % (0-5); NEUTROPHILS 59 % (28-66); PLATELET ESTIMATE NORMAL (NORMAL)
[2021-03-10] MEDS ORDERED: ISOVUE-370 76% 100ML VIAL As Ordered ONE (15:38)
[2021-03-10] MEDS ORDERED: clonazePAM 1 MG TAB PO ONE (16:00)
--- NOTE | 2021-03-10 16:03 | REP ---
INDICATION: left sided abdominal pain. COMPARISON: Multiple the latest 02/09/2021 TECHNIQUE: Standard helical technique after the intravenous administration of 100 cc Isovue 370 FINDINGS: The lung bases are clear. The liver, gallbladder, spleen, pancreas, adrenal glands, and kidneys are within normal limits. The abdominal aorta and para aortic regions are within normal limits. The bowel loops and the mesenteries are within normal limits. There is no free fluid or free air. There is no mass or adenopathy. Bone window technique throughout the examination shows the osseous structures to be stable and intact. IMPRESSION: There is no evidence of acute disease or significant change compared to the prior exam. <Electronically signed by Harrison Drake > 03/10/21 1600
[2021-03-10 18:31] VITALS: BP 186/92
--- NOTE | 2021-03-10 21:03 | ECGEPIP ---
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
== END 2021-03-10 18:37 | disposition home or self-care (01) ==
LOC: M ED 11:25 → EDBD 11:25 → M ED 18:37
DX: R10.9 Unspecified abdominal pain (principal); F41.9 Anxiety disorder, unspecified; E11.9 Type 2 diabetes mellitus without complications; E78.5 Hyperlipidemia, unspecified; K21.9 Gastro-esophageal reflux disease without esophagitis; J45.909 Unspecified asthma, uncomplicated; Z79.4 Long term (current) use of insulin; Z88.1 Allergy status to other antibiotic agents; Z88.2 Allergy status to sulfonamides; Z88.8 Allergy status to other drugs, medicaments and biological substances
CPT/HCPCS: 71045; 74177; 80048; 80076; 83036; 83690; 84443; 85025; 93005; 93041; 94760; 96360; 96361; 99285; Q9967

== ENCOUNTER → 2021-03-31 | Outpatient (REF) | payer OTHER ==
[2021-03-31 17:34] LABS: BASO # 0.1 10^3/uL (0.0-0.2); BASO % 0.7 % (0.0-1.0); EOS # 0.2 10^3/uL (0.0-0.5); EOS % 2.7 % (0.0-3.0); HEMOGLOBIN 13.9 g/dl (12.0-15.5); LYMPH # 2.9 10^3/uL (1.5-5.0); LYMPH % 36.3 % (24.0-44.0); MEAN CORPUSCULAR HEMOGLOBIN 28.4 pg (27.0-33.0); MEAN CORPUSCULAR HGB CONC 32.3 g/dl (32.0-36.5); MEAN CORPUSCULAR VOLUME 87.8 fl (80.0-96.0); MONO # 0.6 10^3/uL (0.0-0.8); MONO % 7.7 % (2.0-8.0); NEUTROPHILS # 4.2 10^3/uL (1.5-8.5); NEUTROPHILS % 52.2 % (36.0-66.0); PLATELET COUNT, AUTOMATED 311 10^3/uL (150-450)
[2021-03-31 17:52] LABS: HEMOGLOBIN A1c 9.3 %
[2021-03-31 17:53] LABS: APPEARANCE, URINE MANUAL CLEAR (CLEAR); COLOR, URINE MANUAL YELLOW (YELLOW)
[2021-03-31 17:54] LABS: BILIRUBIN, URINE MANUAL NEGATIVE (NEGATIVE); BLOOD URINE MANUAL NEGATIVE (NEGATIVE); GLUCOSE, URINE (UA) MANUAL 4+(1000 MG/DL) mg/dL (NEGATIVE); KETONE, URINE MANUAL NEGATIVE (NEGATIVE); LEUKOCYTE ESTERASE, URINE MAN NEGATIVE (NEGATIVE); NITRITE, URINE MANUAL NEGATIVE (NEGATIVE); PH,URINE MAN 5.5 UNITS (5.0 - 7.0); PROTEIN, URINE MANUAL NEGATIVE (NEGATIVE); SPECIFIC GRAVITY,URINE MANUAL 1.037 (1.002-1.035); UROBILINOGEN, URINE MANUAL NORMAL (NORMAL)
[2021-03-31 18:01] LABS: ALBUMIN 3.5 GM/DL (3.2-5.2); ALT/SGPT 95 U/L (12-78); BILIRUBIN,TOTAL 0.6 MG/DL (0.2-1.0); BLOOD UREA NITROGEN 11 MG/DL (7-18); CALCIUM LEVEL 9.6 MG/DL (8.5-10.1); CARBON DIOXIDE LEVEL 27 MEQ/L (21-32); CHLORIDE LEVEL 108 MEQ/L (98-107); CHOLESTEROL LEVEL 147 MG/DL (<200); CHOLESTEROL RISK RATIO 3.418 (<5); GLOMERULAR FILTRATION RATE > 60.0 (>58); GLUCOSE, FASTING 174 MG/DL (70-100); HDL CHOLESTEROL 43 MG/DL (>40); LDL CHOLESTEROL 83 MG/DL (<100); NON-HDL-C 104 MG/DL; POTASSIUM SERUM 4.2 MEQ/L (3.5-5.1); SODIUM LEVEL 141 MEQ/L (136-145); TOTAL PROTEIN 7.1 GM/DL (6.4-8.2); TRIGLYCERIDES LEVEL 103 MG/DL (<150)
== END ==
LOC: M LAB REF 17:11
PROVIDERS: ATTEND Nurse Practitioner Family
DX: E11.65 Type 2 diabetes mellitus with hyperglycemia (principal)

== ENCOUNTER → 2021-05-10 | Outpatient (REF) | payer OTHER ==
[~2021-05-10] MED LIST changes: -QUET50TA3 PO; +QUET50TA4 PO
[2021-05-10 17:39] LABS: URINE PREG TEST NEGATIVE (NEGATIVE)
[2021-05-10 17:51] LABS: APPEARANCE, URINE HAZY (CLEAR); BACTERIA, URINE AUTO NEGATIVE (NEGATIVE); BILIRUBIN, URINE AUTO NEGATIVE (NEGATIVE); BLOOD, URINE BLOOD NEGATIVE (NEGATIVE); COLOR, URINE YELLOW (YELLOW); GLUCOSE, URINE (UA) AUTO 1+ mg/dL (NEGATIVE); KETONE, URINE AUTO NEGATIVE (NEGATIVE); LEUKOCYTE ESTERASE, URINE AUTO NEGATIVE (NEGATIVE); MUCUS, URINE SMALL (NEGATIVE); NITRITE, URINE AUTO NEGATIVE (NEGATIVE); PROTEIN, URINE AUTO 1+ mg/dL (NEGATIVE); RBC, URINE AUTO 1 /HPF (0-3); SPECIFIC GRAVITY URINE AUTO 1.017 (1.002-1.035); SQUAMOUS EPITHELIAL CELL UR AU 2 /HPF (0-6); UROBILINOGEN, URINE AUTO 0.2 mg/dL (0.0-2.0); WBC, URINE AUTO 2 /HPF (0-3)
== END ==
LOC: M LAB REF 16:41
PROVIDERS: ATTEND Physician Assistant Medical
DX: R30.0 Dysuria (principal)

== ENCOUNTER → 2021-05-10 | Outpatient (CLI) | payer OTHER ==
[2021-05-10 15:50] LABS: HCG, SERUM QUALITATIVE NEGATIVE (NEGATIVE)
== END ==
LOC: M LAB 14:18
PROVIDERS: ATTEND Advanced Practice Midwife
DX: N92.0 Excessive and frequent menstruation with regular cycle (principal)

== ENCOUNTER → 2021-06-10 | Outpatient (REF) | payer OTHER, MEDICAID ==
[2021-06-10 18:10] LABS: APPEARANCE, URINE HAZY (CLEAR); BACTERIA, URINE AUTO 1+ (NEGATIVE); BILIRUBIN, URINE AUTO NEGATIVE (NEGATIVE); BLOOD, URINE BLOOD NEGATIVE (NEGATIVE); COLOR, URINE YELLOW (YELLOW); GLUCOSE, URINE (UA) AUTO 3+ mg/dL (NEGATIVE); KETONE, URINE AUTO NEGATIVE (NEGATIVE); LEUKOCYTE ESTERASE, URINE AUTO NEGATIVE (NEGATIVE); MUCUS, URINE SMALL (NEGATIVE); NITRITE, URINE AUTO NEGATIVE (NEGATIVE); PROTEIN, URINE AUTO 1+ mg/dL (NEGATIVE); RBC, URINE AUTO 1 /HPF (0-3); SPECIFIC GRAVITY URINE AUTO 1.026 (1.002-1.035); SQUAMOUS EPITHELIAL CELL UR AU 5 /HPF (0-6); UROBILINOGEN, URINE AUTO 0.2 mg/dL (0.0-2.0); WBC, URINE AUTO 2 /HPF (0-3)
== END ==
LOC: M LAB REF 16:34
PROVIDERS: ATTEND Physician Assistant
DX: N39.0 Urinary tract infection, site not specified (principal)

== ENCOUNTER → 2021-06-23 | Outpatient (REF) | payer OTHER ==
[2021-06-23 22:58] LABS: APPEARANCE, URINE CLEAR (CLEAR); BACTERIA, URINE AUTO 1+ (NEGATIVE); BILIRUBIN, URINE AUTO NEGATIVE (NEGATIVE); BLOOD, URINE BLOOD NEGATIVE (NEGATIVE); COLOR, URINE YELLOW (YELLOW); GLUCOSE, URINE (UA) AUTO NEGATIVE (NEGATIVE); KETONE, URINE AUTO NEGATIVE (NEGATIVE); LEUKOCYTE ESTERASE, URINE AUTO NEGATIVE (NEGATIVE); NITRITE, URINE AUTO NEGATIVE (NEGATIVE); PROTEIN, URINE AUTO NEGATIVE (NEGATIVE); RBC, URINE AUTO 0 /HPF (0-3); SPECIFIC GRAVITY URINE AUTO 1.009 (1.002-1.035); SQUAMOUS EPITHELIAL CELL UR AU 1 /HPF (0-6); UROBILINOGEN, URINE AUTO 0.2 mg/dL (0.0-2.0); WBC, URINE AUTO 1 /HPF (0-3)
[2021-06-24 04:02] LABS: GC DNA AMPLIFICATION NEGATIVE (NEGATIVE)
== END ==
LOC: M LAB REF 22:02
PROVIDERS: ATTEND Physician Assistant Medical
DX: R30.0 Dysuria (principal)

== ENCOUNTER 2021-07-07 12:43 | Emergency (ER) | payer MEDICAID, OTHER ==
[~2021-07-07] VITALS: Ht 170.2 cm; Wt 134.6 kg
--- OUTSIDE RECORDS SUMMARY | 2021-07-07 13:15 | CCD ---
Author Organization Unknown Address [address] [place] [address] Phone [phone] Care Team Providers Care Farm Service Consultant Name Role Phone [facility] [phone] [facility] 2 [phone] RONAN YATES MD 2 [phone] Allergies Code Code System Name Reaction Severity Status Onset Sulfa (Sulfonamide Antibiotics) Hives Moderate Active 10/31/19 17 72170 RxNorm Lisinopril Active 04/18/2017 Clindamycin Hcl Active 07/24/2017 [id number] RxNorm IMODIUM A- D Hives Moderate Active Notes: JANUVIA AND METFORMIN - Reaction : pancreatic issue (caused pancreatitis) Medications Name Status Start Date Stop Date acetaminophen 500 mg tablet TAKE 1 2 TABLETS BY MOUTH EVERY 6 HOURS NEEDED Active Not available Admelog U-100 Insulin lispro 100 unit/mL subcutaneous solution INJECT UNDER THE SKIN THREE TIMES A DAY PER SLIDING SCALE MAXIMUM DAILY DOSE 50 UNITS Active Not available amlodipine 5 mg tablet Active Not avail able ammonium lactate 12 % topical cream Active Not available amoxicillin 875 mg tablet Completed 2020 amoxicillin 875 mg-potassium clavulanate 125 mg tablet Completed 10/20/2020 aripiprazole 10 mg tablet TAKE ONE TABLET BY MOUTH AT BEDTIME Active Not available aripiprazole 15 mg tablet TAKE ONE TABLET BY MOUTH @8PM Completed aripiprazole 20 mg tablet TAKE 1/2 TABLET BY MOUTH @8AM and TAKE 1/2 TABLET BY MOUTH @5PM Completed 10/20/2020 aspirin 81 mg tablet,delayed release TAKE 1 TABLET BY MOUTH AT 8 00AM Active Not av ailable atorvastatin 10 mg tablet TAKE 1 TABLET BY MOUTH AT 5 00PM Completed 2020 atorvastatin 40 mg tablet TAKE ONE TABLET BY MOUTH EVERY DAY AT 5P.M Active Not available Austedo 12 mg tablet Completed 03/31/2021 Austedo 6 mg tablet Completed 03/31/2021 Austedo 9 mg tablet Completed 03/31/2021 azithromycin 250 mg tablet Completed 03/31 Cyndi NievesEdwin U-100 Insulin 100 unit/ mL (3 mL) subcutaneous INJECT 25 UNITS UNDER THE SKIN EVERY MORNING 35 UNITS EVERY EVENING MAXIMUM DAILY DOSE 50 UNITS Active Not available BD Insulin Syringe Ultra-Fine 0.5 mL 31 gauge x 5/16" USE DIRECTED FOUR TIMES DAILY Active Not av ailable BD Ultra-Fine Mini Pen Needle 31 gauge x 3/16" USE DIRECTED TWICE DAILY Active Not availab le benzonatate 200 mg capsule TAKE ONE CAPSULE BY MOUTH THREE TIMES A DAY FOR 7 DAYS Active Not available Bion Tears (PF) 0.1 %-0.3 % drops in a d ropperette INSTILL 1 DROP INTO BOTH EYES FOUR TIMES A DAY DIRECTED Active Not available bupropion HCl 100 mg tablet Active Not available bupropion HCl SR 150 mg tablet,12 hr kait tained-release TAKE 1 TABLET BY MOUTH ONCE A DAY IN THE MORNING Active Not available cefdinir 300 mg capsule TAKE ONE CAPSULE BY MOUTH EVERY 12 HOURS FOR 7 DAYS Completed 06/14/2021 cephalexin 500 mg capsule TAKE ONE CAPSULE BY MOUTH THREE TIMES A DAY FOR 7 DAYS Completed 06/29/2021 cetirizine 10 mg tablet TAKE ONE TABLET BY MOUTH EVERY MORNING AT 8AM Active Not available cholecalciferol (vitamin D3) 50 mcg (2,0 00 unit) tablet TAKE ONE TABLET BY MOUTH EVERY MORNING AT 8AM Active Not available ciprofloxacin 500 mg tablet TAKE ONE TABLET BY MOUTH EVERY 12 HOURS FOR 5 DAYS Active Not available citalopram 20 mg tablet TAKE 1 TABLET BY MOUTH ONCE A DAY WITH DINNER Active Not available citalopram 40 mg tablet TAKE ONE TABLET BY MOUTH @8AM Completed clonazepam 1 mg tablet TAKE ONE TABLET BY MOUTH THREE TIMES A DAY MAXIMUM DAILY DOSE 3 TABLETS Active Not available cyclobenzaprine 10 mg tablet Completed embrace lancets ultra thin 30g misc Active Not available FeroSul 325 mg (65 mg iron) tablet Active Not available fluconazole 150 mg tablet Active Not av ailable fluticasone propionate 50 mcg/actuation nasal spray,suspension SPRAY 2 SPRAYS IN EACH NOSTRIL ONCE DAILY Active Not available folic acid 1 mg tablet TAKE ONE TABLET BY MOUTH EVERY DAY AT 5PM Active Not available furosemide 20 mg tablet TAKE ONE TABLET BY MOUTH EVERY DAY FOR 7 DAYS Active Not available GenTeal Tears Mild 0.1 %-0.3 % eye drops Active Not available hydrochlorothiazide 25 mg tablet TAKE ONE TABLET BY MOUTH @8AM Completed hydroxyzine HCl 25 mg tablet Completed hydroxyzine HCl 50 mg tablet Completed ibuprofen 800 mg tablet TAKE ONE TABLET BY MOUTH THREE TIMES A DAY Active Not available ketoconazole 2 % topical cream Active N ot available latanoprost 0.005 % eye drops INSTILL 1 DROP INTO BOTH EYES AT BEDTIME Active Not available levothyroxine 88 mcg tablet TAKE ONE TABLET BY MOUTH EVERY MORNING AT 8AM Active Not available Mapap Arthritis Pain 650 mg tablet,extended release Active Not available meclizine 25 mg tablet Completed meloxicam 15 mg tablet TAKE ONE TABLET BY MOUTH EVERY MORNING AT 8AM Active Not available metoprolol succinate ER 50 mg tablet,extended release 24 hr Comp leted 06/14/2021 montelukast 10 mg tablet Completed naproxen 500 mg tablet Completed [id number] 3.5 mg/mL-10,000 unit/mL- 1 % ear solution Completed 04/20/2021 nitrofurantoin monohydrate/macrocrystals 100 mg capsule Active Not available Nyamyc 100,000 unit/gram topical powder Active Not available nystatin 100,000 unit/gram topical cream APPLY 1 APPLICATION EXTERNALLY TO AFFECTED AREA S TWICE A DAY FOR 14 DAYS Completed 04/20/2021 nystatin 100,000 unit/gram topical ointment Active Not available omeprazole 20 mg capsule,delayed release TAKE ONE CAPSULE BY MOUTH EVERY MORNING AT 8A.M Active Not available ondansetron HCl 4 mg tablet Completed 03/17 OneTouch Delica Plus Lancet 30 gauge USE DIRECTED THREE TIMES A DAY Active Not a vailable OneTouch Delica Plus Lancet 33 gauge Active Not available OneTouch Ultra Blue Test Strip test once daily as directed Active Not availab le OneTouch Ultra Test strips USE TO TEST SUGAR UP TO 4 TIMES A DAY Active N ot available OneTouch Ultra2 Meter Active Not availa ble phenazopyridine 200 mg tablet TAKE ONE TABLET BY MOUTH THREE TIMES A DAY FOR 2 DAYS Completed 06/14/2021 potassium chloride ER 10 mEq tablet,exte nded release TAKE ONE TABLET BY MOUTH TWICE A DAY AT 8AM AND 5PM Active Not available propranolol 10 mg tablet Active Not susan ilable ranitidine 150 mg tablet Completed 021 Triple Antibiotic 3.5 mg-400 unit-5,000 unit/gram topical ointme nt Completed 04/20/2021 Trulicity 1.5 mg/0.5 mL subcutaneous pen injector INJECT 1.5MG UNDER THE SKIN WEEKLY Active Not available venlafaxine ER 150 mg capsule,extended r elease 24 hr TAKE 1 CAPSULE BY MOUTH EVERY MORNING AND 1 CAPSULE AT 1 P.M. Completed 06/14/2021 venlafaxine ER 37.5 mg capsule,extended release 24 hr TAKE ONE CAPSULE BY MOUTH ONCE DAILY WITH DINNER Completed 03/31/2021 venlafaxine ER 75 mg capsule,extended re lease 24 hr TAKE ONE CAPSULE BY MOUTH EVERY MORNING Active Not available vitamin d3 50 mcg (1999 ut) tabs Completed 06/14/2021 Problems Name Status Onset Date Source Anemia Active 10/31/2016 History Depressive Disorder Active 10/31/2016 History Hereditary Peripheral Neuropathy Active 10/31/2016 History Idiopathic Peripheral Neuropathy Unknown 10/31/2016 History Negative Dysphotopsia Active 10/31/2016 History Hypertensive Disorder Active 10/31/2016 History Gastroesophageal Reflux Disease Active 10/31/2016 History Long-term Current Use of Insulin Active 10/31/2016 History Exposure to Second Hand Tobacco Smoke Unknown 10/31/2016 History Clinical Finding Unknown 10/31/2016 History Evaluation Procedure Unknown 10/31/2016 History Hypothyroidism Active 11/14/2016 History Vitamin D Deficiency Active 11/14/2016 History Cough Unknown 05/03/2017 History Severe Obesity Active 07/24/2017 History Finding of Body Mass Index Active 07/24/2017 Histo ry Tinea Pedis Unknown 09/03/2017 History 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 10/03 History Allergic Rhinitis Active 12/17/2017 History Pain of Left Shoulder Joint Unknown 12/27/2017 Hist ory Pain in Left Knee Unknown 12/27/2017 History Hypokalemia Active 07/08/2018 History Obstructive Sleep Apnea Syndrome Active 07/08/2018 History Hearing Difficulty Active 07/08/2018 History Influenza Vaccine Needed Unknown 07/08/2018 History Syphilis Test Finding Unknown 07/08/2018 History Pruritis of Skin of Anogenital Region Active 07/08/2018 History Bipolar Disorder Active 08/06/2018 History Backache Unknown 12/09/2018 History Obesity in Mother Complicating Childbirth Unknown 2018 History Inflammatory Dermatosis Unknown 12/23/2018 History Knee Pain Unknown 03/07/2019 History Finding of Knee Region Unknown 03/07/2019 History Amenorrhea Active 04/08/2019 History High Risk Heterosexual Behavior Active 04/08/2019 History Anxiety Active 11/06/2019 History Ingrowing Nail Unknown 12/18/2019 History Dizziness and Giddiness Unknown 12/18/2019 History Sinusitis Unknown 03/25/2020 History Prolapsed Lumbar Intervertebral Disc Active 03/25/2020 History Spinal Stenosis of Lumbar Region Active 03/25/2020 History Pain Radiating to Lower Abdomen Unknown 03/25/2020 History Intertrigo Unknown 06/01/2020 History Type 2 Diabetes Mellitus without Complication Active Food Insecurity Active 04/20/2021 Low Income Active 04/20/2021 At Risk - Finding Active 04/20/2021 Type II Diabetes Mellitus Uncontrolled Active Edema of Lower Extremity Active 04/24/2021 Body Mass Index 40+ - Severely Obese Active 04/24/2021 Patient Asked to Attend Active 04/24/2021 Procedures Notes: D + C, surgery for endometrosis, section X 2, laparoscopy, endometrial ablation Results Lab Results Date Name Specimen Result Interpretation Description Value Range Status Address 05/10/2021 beta-HCG, Qualitative, Serum or Plasma Normal HCG, Serum Qualitative negative negative Final [facility]: [address] [facility] 03/31/2021 CBC W/ Auto Diff Blood venous Normal White Blood C ount 8.0 10 4.0-10.0 10 Final [facility]: 83 0 [facility] Blood venous Normal Red Blood Count 4.90 10 4.00- 5.40 10 [facility]: [address] [facility] Blood venous Normal Hemoglobin 13.9 g/dL 12.0-15. 5 g/dL [facility]: [address] [facility] Blood venous Normal Hematocrit 43.0 % 36.0-47.0 % [facility]: [address] [facility] Blood venous Normal Mean Corpuscular Volume 87.8 fL 80.0-96.0 fL [facility]: [address] [place] [address] Blood venous Normal Mean Corpuscular Hemoglob in 28.4 pg 27.0-33.0 pg [facility]: [address] [place] [address] Blood venous Normal Mean Corpuscular HGB Conc 32.3 g/dL 32.0-36.5 g/dL [facility]: [address] [place] [address] Blood venous Normal Red Cell Distribution Wid th 12.6 % 11.5-14.5 % [facility]: [address] [place] [address] Blood venous Normal Platelet Count, Automated 311 10 150-450 10 [facility]: [address] [place] [address] Blood venous Normal Neutrophils % 52.2 % 36.0-66. 0 % [facility]: [address] [place] [address] Blood venous Normal Lymph % 36.3 % 24.0-44.0 % [facility]: [address] [place] [address] Blood venous Normal Towns % 7.7 % 2.0-8.0 % [facility]: [address] [place] [address] Blood venous Normal Eos % 2.7 % 0.0-3.0 % [facility]: [address] [place] [address] Blood venous Normal Baso % 0.7 % 0.0-1.0 % [facility]: [address] [place] [address] Blood venous Normal Immature Granulocyte % 0.4 % 0-3.0 % [facility]: [address] [place] [address] Blood venous Normal Nucleated Red Blood Cell % 0. 0 % 0-0 % [facility]: [address] [place] [address] Blood venous Normal Neutrophils # 4.2 10 1.5-8.5 10 [facility]: [address] [place] [address] Blood venous Normal Lymph # 2.9 10 1.5-5.0 10 [facility]: [address] [place] [address] Blood venous Normal Towns # 0.6 10 0.0-0.8 10 [facility] [address] [facility] Blood venous Normal Eos # 0.2 10 0.0-0.5 10 [facility]: [address] [facility] Blood venous Normal Baso # 0.1 10 0.0-0.2 10 [facility]: [address] [facility] 03/31/2021 HbA1C (Hemoglobin a1C), Blood Blood venous Normal Hemoglobin a1C 9.3 % [facility]: [address] [facility] Blood venous High Estimated Average Glucose 220 mg/dL 60-110 mg/dL [facility]: [address] [facility] 03/31/2021 Urinalysis Manual Normal Appearance, Urine Manual clear clear [facility]: [address] [facility] Normal Color, Urine Manual yellow yellow Fi [facility]: [address] [facility] Normal pH,urine Man 5.5 units 5.0 - 7.0 uni ts [facility]: [address] [facility] High Specific [place],urine Manual 1.037 1.002-1.035 [facility]: [address] [facility] Normal Protein, Urine Manual negative mg/dL negative mg/dL [facility]: 0 [facility] High Glucose, Urine (UA) Manual 4+( 1000 mg/dL) mg/dL negative mg/dL [facility]: [address] [facility] Normal Ketone, Urine Manual negative mg/dL negative mg/dL [facility]: [address] [facility] Normal Urobilinogen, Urine Manual normal mg /dL normal mg/dL [facility]: [address] [facility] Normal Bilirubin, Urine Manual negative neg ative [facility]: [address] [facility] Normal Nitrite, Urine Manual negative negat akosua [facility]: [address] [facility] Normal Leukocyte Esterase, Urine Man negati ve negative [facility]: [address] [facility] Normal Blood Urine Manual negative negative [facility]: [address] [place] [address] 03/31/2021 CMP, Serum or Plasma Blood venous High Glu cose, Fasting 174 mg/dL 70-100 mg/dL [facility] nter: [address] [place] [address] Blood venous Normal Blood Urea Nitrogen 11 mg/dL 7-18 mg/dL [facility]: [address] [place] [address] Blood venous Normal Creatinine for GFR 0.60 mg/dL 0.55-1.30 mg/dL [facility]: [address] [place] [address] Blood venous Normal Glomerular Filtration Rate > 60.0 >58 [facility]: [address] [place] [address] Blood venous Normal Sodium Level 141 mEq/L 136-14 5 mEq/L [facility]: [address] [place] [address] Blood venous Normal Potassium Serum 4.2 mEq/L 3.5 -5.1 mEq/L [facility]: [address] [place] [address] Blood venous High Chloride Level 108 mEq/L 98-1 07 mEq/L [facility]: [address] [place] [address] Blood venous Normal Carbon Dioxide Level 27 mEq/L 21-32 mEq/L [facility]: [address] [place] [address] Blood venous Low Anion Gap 6 mEq/L 8-16 mEq/L [facility]: [address] [place] [address] Blood venous Normal Calcium Level 9.6 mg/dL 8.5-1 0.1 mg/dL [facility]: [address] [place] [address] Blood venous High AST/SGOT 55 U/L 7-37 U/L Supriya amy [facility]: [address] [place] [address] Blood venous High ALT/SGPT 95 U/L 12-78 U/L [facility]: [address] [place] [address] Blood venous Normal Alkaline Phosphatase 117 U/L 45-117 U/L [facility]: [address] [place] [address] Blood venous Normal Bilirubin,total 0.6 mg/dL 0.2 -1.0 mg/dL [facility]: [address] [place] [address] Blood venous Normal Total Protein 7.1 gm/dL 6.4-8 .2 gm/dL [facility]: [address] [facility] Blood venous Normal Albumin 3.5 gm/dL 3.2-5.2 gm/ dL [facility]: [address] [place] [address] Blood venous Low Albumin/globulin Ratio 1.0 1.2-2.2 [facility]: [address] [facility] 03/31/2021 Lipid Panel, Blood Blood venous Normal Trigl ycerides Level 103 mg/dL <150 mg/dL [facility] nter: [address] [facility] Blood venous Normal Cholesterol Level 147 mg/dL < 200 mg/dL [facility]: [address] [place] [address] Blood venous Normal HDL Cholesterol 43 mg/dL >40 mg/dL [facility]: [address] [place] [address] Blood venous Normal LDL Cholesterol 83 mg/dL <100 mg/dL [facility]: 0 [facility] Blood venous Normal Non-hdl-c 104 mg/dL Fi [facility]: [address] [facility] Blood venous Normal Cholesterol Risk Ratio 3.418 <5 [facility]: 0 [facility] 03/31/2021 Urinalysis Manual Normal Appearance, Urine Manual clear clear [facility]: 0 [facility] Normal Color, Urine Manual yellow yellow [facility]: 0 [facility] Normal pH,urine Man 5.5 units 5.0 - 7.0 uni ts [facility]: 0 [facility] High Specific [place],urine Manual 1.037 1.002-1.035 [facility]: 0 [facility] Normal Protein, Urine Manual negative mg/dL negative mg/dL [facility]: [address] [place] [address] High Glucose, Urine (UA) Manual 4+( 1000 mg/dL) mg/dL negative mg/dL [facility]: 0 [facility] Normal Ketone, Urine Manual negative mg/dL negative mg/dL [facility]: [address] [place] [address] Normal Urobilinogen, Urine Manual normal mg /dL normal mg/dL [facility]: [address] [facility] Normal Bilirubin, Urine Manual negative neg ative [facility]: [address] [facility] Normal Nitrite, Urine Manual negative negat akosua [facility]: [address] [facility] Normal Leukocyte Esterase, Urine Man negati ve negative [facility]: [address] [facility] Normal Blood Urine Manual negative negative [facility]: [address] [facility] 03/31/2021 Culture, Urine URINE,CLEAN CATCH No observation recorded. [facility]: [address] [place] [address] 03/31/2021 Hemoglobin a1C, Fingerstick Off-scale High Hba1 C [facility]: [address] [place] [address] 03/31/2021 Glucose, Fingerstick, Blood Blood Glucos e: mg/dl 183 [facility]: [address] [place] [address] 03/10/2021 Ctni Istat Normal Istat Troponin 0.00 NG/m L 0.00-0.08 NG/mL [facility]: 0 [facility] 03/10/2021 HbA1C (Hemoglobin a1C), Blood Normal Hemogl obin a1C 9.4 % [facility]: [address] [place] [address] High Estimated Average Glucose 223 mg/dL 60-110 mg/dL [facility]: 0 [facility] 03/10/2021 Hepatic Function Panel, Serum High AST/SG OT 117 U/L 7-37 U/L [facility]: [address] [facility] High ALT/SGPT 140 U/L 12-78 U/L [facility]: [address] [facility] Normal Alkaline Phosphatase 116 U/L 45-117 U/L [facility]: [address] [facility] Normal Bilirubin,total 1.0 mg/dL 0.2-1.0 mg /dL [facility]: 0 [facility] High Bilirubin,direct 0.3 mg/dL 0.0-0.2 m g/dL [facility]: [address] [facility] Normal Total Protein 7.2 gm/dL 6.4-8.2 gm/d L [facility]: 0 [facility] Normal Albumin 3.5 gm/dL 3.2-5.2 gm/dL Supriya l [facility]: 0 [facility] Low Albumin/globulin Ratio 0.9 1.2-2. 2 [facility]: 0 [facility] 03/10/2021 BMP, Serum or Plasma High Glucose, Fastin g 174 mg/dL 70-100 mg/dL [facility]: 83 0 [facility] Normal Blood Urea Nitrogen 12 mg/dL 7-18 mg /dL [facility]: [address] [place] [address] Normal Creatinine for GFR 0.63 mg/dL 0.55-1 .30 mg/dL [facility]: 0 [facility] Normal Glomerular Filtration Rate > 60.0 >5 8 [facility]: 0 [facility] Normal Sodium Level 141 mEq/L 136-145 mEq/L [facility]: 0 [facility] Normal Potassium Serum 3.7 mEq/L 3.5-5.1 mE q/L [facility]: 0 [facility] High Chloride Level 108 mEq/L 98-107 mEq/ L [facility]: 0 [facility] Normal Carbon Dioxide Level 28 mEq/L 21-32 mEq/L [facility]: 0 [facility] Low Anion Gap 5 mEq/L 8-16 mEq/L [facility]: 0 [facility] Normal Calcium Level 9.5 mg/dL 8.5-10.1 mg/ dL [facility]: 0 [facility] 03/10/2021 Lipase, Serum or Plasma Normal Lipase 96 U/L 7 3-393 U/L [facility]: 0 [facility] 03/10/2021 TSH, Serum or Plasma Blood venous Normal Thyroid Stimulating Hormone 1.740 uIU/mL 0.358-3.740 uIU/mL [facility]: [address] [place] [address] 03/10/2021 CBC W/ Auto Diff Normal White Blood Count 7.3 10 4.0-10.0 10 [facility]: [address] [place] [address] Normal Red Blood Count 5.21 10 4.00-5.40 10 [facility]: [address] [place] [address] Normal Hemoglobin 15.1 g/dL 12.0-15.5 g/dL [facility]: [address] [place] [address] Normal Hematocrit 44.8 % 36.0-47.0 % [facility]: [address] [place] [address] Normal Mean Corpuscular Volume 86.0 fL 80.0 -96.0 fL [facility]: [address] [place] [address] Normal Mean Corpuscular Hemoglobin 29.0 pg 27.0-33.0 pg [facility]: [address] [place] [address] Normal Mean Corpuscular HGB Conc 33.7 g/dL 32.0-36.5 g/dL [facility]: [address] [place] [address] Normal Red Cell Distribution Width 12.5 % 1 1.5-14.5 % [facility]: [address] [place] [address] Normal Platelet Count, Automated 296 10 150 -450 10 [facility]: [address] [place] [address] Normal Nucleated Red Blood Cell % 0.0 % 0- 0 % [facility]: 0 [facility] 03/10/2021 Differential Panel, Blood Normal Neutrophil s 59 % 28-66 % [facility]: [address] [place] [address] Normal Lymphocytes 27 % 16-44 % [facility]: [address] [place] [address] High Monocytes 9 % 0-5 % [facility]: [address] [place] [address] Normal Atypical Lymph 5 % 0-5 % [facility]: [address] [place] [address] 03/10/2021 Platelet Count, Estimate, Blood Normal Platelet Estimate normal normal [facility] nter: [address] [facility] 10/20/2020 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), QL, ingot caster-PCR, 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 Nasopharyngeal Normal Sars Cov 2 RNA not detected not detected Fi nal 07/30/2020 HbA1C (Hemoglobin a1C), Blood Normal Hemogl obin a1C 6.6 % [facility]: [address] [facility] High Estimated Average Glucose 143 mg/dL 60-110 mg/dL [facility]: [address] [facility] 07/30/2020 CMP, Serum or Plasma High Glucose, Fastin g 131 mg/dL 70-100 mg/dL [facility]: 83 0 [facility] Normal Blood Urea Nitrogen 16 mg/dL 7-18 mg /dL [facility]: 0 [facility] Normal Creatinine for GFR 0.77 mg/dL 0.55-1 .30 mg/dL [facility]: [address] [facility] Normal Glomerular Filtration Rate > 60.0 >5 8 [facility]: [address] [facility] Normal Sodium Level 141 mEq/L 136-145 mEq/L [facility]: 0 [facility] Normal Potassium Serum 3.8 mEq/L 3.5-5.1 mE q/L [facility]: [address] [facility] Normal Chloride Level 105 mEq/L 98-107 mEq/ L [facility]: 0 [facility] High Carbon Dioxide Level 33 mEq/L 21-32 mEq/L [facility]: 0 [facility] Low Anion Gap 3 mEq/L 8-16 mEq/L [facility]: 0 [facility] Normal Calcium Level 9.4 mg/dL 8.5-10.1 mg/ dL [facility]: 830 [facility] Normal AST/SGOT 12 U/L 7-37 U/L [facility]: 830 [facility] Normal ALT/SGPT 28 U/L 12-78 U/L [facility]: 830 [facility] Normal Alkaline Phosphatase 112 U/L 45-117 U/L [facility]: 830 [facility] High Bilirubin,total 1.1 mg/dL 0.2-1.0 mg /dL [facility]: 830 [facility] Normal Total Protein 7.6 gm/dL 6.4-8.2 gm/d L [facility]: 830 [facility] Normal Albumin 4.0 gm/dL 3.2-5.2 gm/dL Supriya l [facility]: [address] [place] [address] Low Albumin/globulin Ratio 1.1 1.2-2. 2 [facility]: 0 [facility] 07/30/2020 Lipid Panel, Blood Normal Triglycerides Lev el 63 mg/dL <150 mg/dL [facility]: 83 0 [facility] Normal Cholesterol Level 156 mg/dL <200 mg/ dL [facility]: 830 [facility] Normal HDL Cholesterol 68 mg/dL >40 mg/dL F inal [facility]: 830 [facility] Normal LDL Cholesterol 75 mg/dL <100 mg/dL [facility]: 0 [facility] Normal Non-hdl-c 88 mg/dL [facility]: [address] [place] [address] Normal Cholesterol Risk Ratio 2.294 <5 [facility]: 0 [facility] 07/30/2020 TSH, Serum or Plasma Normal Thyroid Stimulating Hormone 3.690 uIU/mL 0.358-3.740 uIU/mL [facility] nter: 0 [facility] Past Encounters 06/29/2021 Administration of Influenza Vaccine; Venereal Disease Screening; Sexually Transmitted Infectious Disease; Urinary Symptoms [facility]: [address] [place] [address], Ph. 06/14/2021 Type II Diabetes Mellitus Uncontrolled; Abdominal Pain; Bilateral Knee Pain; Body Mass Index 40+ - Severely Obese; Acute Urinary Tract Infection [facility] [address] [place] [address], Ph. 04/20/2021 Type II Diabetes Mellitus Uncontrolled; Low Income; Patient Asked to Attend; Edema of Lower Extremity; Body Mass Index 40+ - Severely Obese Bridgette [facility]: [address] [place] [phone], Ph. 03/31/2021 Severe Obesity; Type II Diabetes Mellitus Uncontrolled; Cough; Candidiasis of Vagina; Body Mass Index 40+ - Severely Obese [facility]: [address] [place] [address], Ph. 10/20/2020 Upper Respiratory Infection Lore Brizuela [facility]: [address] [place] [phone], Ph. 07/30/2020 Adult Health Examination Lore Brizuela [facility]: [address] [place] [address], Ph. Social History Tobacco Smoking Status Never Smoker Vaccine List Vaccine Type influenza, injectable, quadrivalent, pre servative free 07/07/20190.5 mL influenza, seasonal, injectable 07/08/20180.5 mL Notes: Pt declines covid vaccine. Plan of Care Patient Instructions Please start new sliding scale and cover with Admelog insulin. Please increase Basaglar insulin to 25 units in the mornings and 35 units at nights. 150 or less - no insulin. 151 -200 = 4 units 201-250 = 8 units 251-300 = 12 units 301-350 = 16 units 351-400 = 20 units. Please call clinic if greater than 400 or less than 70. We have made a referral to endocrinology for you. We will contact you to set this up. Referral made to orthopedic for you. We will contact you to set this up. Blood sugars still elevated. We will inc rease nori dose of your ling acting insulin to Basaglar to 20 units in the mornings and 35 units at nights. Please continue your other medications as prescribed. Please continue healthy diet and physical activities.Please try to limit sugars and carbohydrates in your diet. Please try to avoid processed foods. Please continue to monitor and log blood sugar three -4 times daily. please start new sliding scale and cover with Admelog insulin. 150 or less - no insulin. 151 -200 = 4 units 201-250 = 8 units 251-300 = 10 units 301-350 = 12 units 351-400 = 15 units. greater than 400 please call the clinic. Please bring log to your next visit. Please call clinic if blood sugar less than 70 or greater than 400. Please continue sliding-scale with Admel og insulin to cover. 150 or less no insulin. 151 to 200 2 units 201 - 250 4 units 251 - 300 6 units 301- 350 8 units 351- 400 10 units. greater than 400 or less than 70 please call the clinic. Please increase basaglar to 15 units sub q in the mornings and 30 units at nights. Please continue weekly trulicity. Please monitor and log blood glucose three to four times daily. Please bring log to your next visit. Please continue diabetic diet. Reminders Provider Appointments None recorded. Lab None recorded. Referral None recorded. Procedures None recorded. Surgeries None recorded. Imaging None recorded. Vitals 06/29/2021 03:00PM ESTABLISHED [id number] Height Weight BMI Blood Pressure 67 in 296 lbs 4 oz 46.4 kg/m2 130/83 mm[Hg] 06/14/2021 09:20AM ESTABLISHED [id number] Height Weight BMI Blood Pressure 67 in 295 lbs 16 oz 46.4 kg/m2 125/82 mm[Hg] 04/20/2021 10:40AM ANNUAL EXAM Height Weight BMI Blood Pressure 67 in 298 lbs 6 oz 46.7 kg/m2 130/86 mm[Hg] 03/31/2021 03:00PM ESTABLISHED [id number] Height Weight BMI Blood Pressure 67 in 293 lbs 8 oz 46 kg/m2 118/77 mm[Hg] 10/20/2020 01:00PM ESTABLISHED [id number] Height Weight BMI Blood Pressure 67 in 291 lbs 16 oz 45.7 kg/m2 119/78 mm[Hg] 06/01/2020 Height Weight BMI Blood Pressure 67 in 292 lbs 8 oz 45.98 kg/m2 112/77 mm[Hg] 05/03/2020 Height Weight BMI Blood Pressure 67 in 296 lbs 46.53 kg/m2 110/75 mm[Hg] 04/12/2020 Height Weight BMI Blood Pressure 67 in 296 lbs 46.53 kg/m2 118/79 mm[Hg] 03/31/2020 Height Weight BMI Blood Pressure 67 in 298 lbs 46.84 kg/m2 119/78 mm[Hg] 03/25/2020 Height Weight BMI Blood Pressure 67 in 299 lbs 8 oz 47.08 kg/m2 100/68 mm[Hg] 03/17/2020 Height Weight BMI Blood Pressure 67 in 305 lbs 12.8 oz 48.07 kg/m2 103/64 mm[H g] 12/18/2019 Height Weight BMI Blood Pressure 67 in 300 lbs 6.08 oz 47.22 kg/m2 128/80 mm[H g] 11/06/2019 Height Weight BMI Blood Pressure 67 in 304 lbs 47.79 kg/m2 103/70 mm[Hg] 10/08/2019 Height Weight BMI Blood Pressure 67 in 304 lbs 47.79 kg/m2 123/79 mm[Hg] 09/19/2019 Height Weight BMI Blood Pressure 67 in 306 lbs 48.10 kg/m2 116/73 mm[Hg] 08/11/2019 Height Weight BMI Blood Pressure 67 in 304 lbs 47.79 kg/m2 112/69 mm[Hg] 07/07/2019 Height Weight BMI Blood Pressure 67 in 305 lbs 6.08 oz 48.00 kg/m2 129/79 mm[H g] 04/18/2019 Height Weight BMI Blood Pressure 67 in 300 lbs 6.08 oz 47.22 kg/m2 100/62 mm[H g] 04/08/2019 Height Weight BMI Blood Pressure 67 in 303 lbs 3.2 oz 47.66 kg/m2 114/78 mm[Hg ] 03/07/2019 Height Weight BMI Blood Pressure 67 in 308 lbs 48.41 kg/m2 131/78 mm[Hg] 01/28/2019 Height Weight BMI Blood Pressure 67 in 313 lbs 49.20 kg/m2 135/81 mm[Hg] 01/13/2019 Height Weight BMI Blood Pressure 67 in 308 lbs 9.6 oz 48.51 kg/m2 117/74 mm[Hg ] 01/10/2019 Height Weight BMI Blood Pressure 67 in 310 lbs 2.08 oz 48.75 kg/m2 135/90 mm[H g] 12/23/2018 Height Weight BMI Blood Pressure 67 in 311 lbs 8 oz 48.96 kg/m2 135/89 mm[Hg] 12/09/2018 Height Weight BMI Blood Pressure 67 in 309 lbs 48.57 kg/m2 150/90 mm[Hg] 11/01/2018 Height Weight BMI Blood Pressure 67 in 302 lbs 4 oz 47.51 kg/m2 119/70 mm[Hg]
--- OUTSIDE RECORDS SUMMARY | 2021-07-07 13:15 | CCD | Continuity of Care Document ---
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 AUTM Problems Active Problems Provider Date Essential hypertension Onset: 07/01/2021 Social History Type Date Description Comments Sex Unknown Tobacco Use Start: Unknown Never Smoked Cigarettes ETOH Use Denies alcohol use Allergies and adverse reactions Active Allergies Criticality Reaction | Severity Comments Date sulfa drugs Unable to assess criticality 07/01/2021 Imodium Unable to assess criticality 07/01/2021 Medications Active Medications SIG Qnty Indications Ordering Provide r Date Meloxicam 15mg Tablets 1 by mouth every day with food or milk 30tabs Angela Patton MD 2020 Nystatin [id number]/GM Ointment use as directed Unknown Genteal Tears Moderate PF 0.1-0.3% Solution instill one drop four times a day as needed Unknown Ibuprofen 800mg Tablets 1 by mouth 3 times a day Unknown Ketoconazole 2% Cream Appl y as directed Unknown Latanoprost 0.005% Solution instill 1 drop in both eyes at bedtime Unknown 00 Levothyroxine Sodium 88mcg Capsule s 1 by mouth every day Unknown [place]ap Arthritis Pain 650mg Tablets ER take as directed Unknown Nyamyc 875183Xclo/GM Powder use as directed Unknown Folic Acid 1mg Tablets 1 b y mouth daily Unknown Omeprazole 20mg Capsules DR 1 by mouth daily Unknown Potassium Chloride ER 10Meq Capsul es ER 1 by mouth twice a day Unknown Propranolol HCL 10mg Tablets 1 by mouth 3 times a day for tremors Unknown 00 Tylenol Extra Strength 500mg Table ts 1-2 pills 2-3x/d as needed Unknown 0 Venlafaxine HCL ER 75mg Caps ER 24 HR 1 by mouth daily Unknown Trulicity 1.5mg/0.5ML Solution Pen -Inject use once weekly Unknown Basaglar Kwikpen 100 Unit/ML Solution Pen-Inject inject 25 units every morning and 35 uni ts in the evening maxium daily dose 50 units Unknown Fluticasone Propionate Nasal [place] 24- H our 50mcg/Act Suspension spray 2 sprays in each nostril once daily Unknown Fluconazole 150mg Tablets 1 by mouth once for 1 dose repeat in 48 hours Unknown Ferosul 325(65Fe) mg Tablets 1 by mouth every other day Unknown Clonazepam 1mg Tablets 1 by mouth 3 times a day Unknown Citalopram Hydrobromide 20mg Table ts 1 by mouth daily Unknown Vitamin D3 50mcg (2000 Ut) Capsule s 1 by mouth every day Unknown Cetirizine HCL 10mg Tablets 1 by mouth daily Unknown Bupropion HCL 100mg Tablets 1 by mouth daily Unknown Bion Tears PF 0.1-0.3% Solution Instill 1 drop in both eyes four times a day as directed U nknown Benzonatate 200mg Capsules 1 by mouth 3 times a day for 7 days Unknown 0 Atorvastatin Calcium 40mg Tablets 1 by mouth daily Unknown Aspirin Adult Low Dose 81mg Tablet s DR 1 by mouth every day Unknown Aripiprazole 10mg Tablets 1 by mouth every day Unknown Ammonium Lactate 12% Cream apply as needed Unknown Amlodipine Besylate 5mg Tablets 1 by mouth daily Unknown Immunizations Description No Information Available Vital Signs Date Vital Result Comment 07/04/2021 1:23pm BP Systolic 126 mmHg BP Diastolic 82 mmHg Heart Rate 88 /min Height 66 inches 5'6" Weight 292.00 lb BMI (Body Mass Index) 47.1 kg/m2 O2 % BldC Oximetry 95 % Results Test Acquired Date Facility Test Result H/L Range Note Laboratory test finding 07/04/2021 In House Glucose 127 Hemoglobin A1c 8.1 Procedures Description No Information Available Medical Devices Description No Information Available Encounters Description No Information Available Assessments Date Code Description Provider 07/04/2021 E11.65 Type 2 diabetes mellitus with hy perglycemia Andressa Medrano NP Plan of Treatment No Information Available Functional Status Description No Information Available Mental Status Description No Information Available Referrals Refer to Reason for Referral Status Appt Date Andressa Medrano NP dm 2 Created 0 [address] [facility] [address] [place] [address] [phone]
--- OUTSIDE RECORDS SUMMARY | 2021-07-07 13:15 | CCD | Continuity of Care Document ---
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 Problems Active Problems Provider Date Essential hypertension Onset: 07/01/2021 Social History Type Date Description Comments Sex Unknown Tobacco Use Start: Unknown Never Smoked Cigarettes Smoking Status Reviewed: 07/04/21 Never Smoked Cigarettes ETOH Use Denies alcohol use Allergies and adverse reactions Active Allergies Criticality Reaction | Severity Comments Date sulfa drugs Unable to assess criticality 07/01/2021 Imodium Unable to assess criticality 07/01/2021 Medications Active Medications SIG Qnty Indications Ordering Provide r Date Trulicity 3mg/0.5ML Solution Pen-I nject use once weekly 2ml Andressa Medrano NP Metformin HCL ER 500mg Tablets ER 24HR take two tablets by mouth twice a day 120tabs E11.65 Andressa Medrano NP 07/04/2021 Meloxicam 15mg Tablets 1 by mouth every day with food or milk 30tabs Angela Patton MD 2020 Admelog 100Unit/ML Solution use as directed per sliding scale 15 min prior to meals Unknown Basaglar Kwikpen 100 Unit/ML Solution Pen-Inject inject 25 units every morning and 35 uni ts in the evening maxium daily dose 50 units Unknown Propranolol HCL 10mg Tablets 1 by mouth 3 times a day for tremors Unknown 00 Potassium Chloride ER 10Meq Capsul es ER 1 by mouth twice a day Unknown Omeprazole 20mg Capsules DR 1 by mouth daily Unknown Levothyroxine Sodium 88mcg Capsule s 1 by mouth every day Unknown Latanoprost 0.005% Solution instill 1 drop in both eyes at bedtime Unknown 00 Folic Acid 1mg Tablets 1 b y mouth daily Unknown Fluticasone Propionate Nasal [place] 24- H our 50mcg/Act Suspension spray 2 [...] 100mg Tablets 1 by mouth daily Unknown Atorvastatin Calcium 40mg Tablets 1 by mouth daily Unknown Aspirin Adult Low Dose 81mg Tablet s DR 1 by mouth every day Unknown Amlodipine Besylate 5mg Tablets 1 by [...] House Glucose 127 Hemoglobin A1c 8.1 Procedures Date Code Description Status 07/04/2021 57245 Office/Outpatient New High MDM 6 0-74 Minutes Completed 07/04/2021 [id number] Diabetic Foot Exam Completed Medical Devices Description No Information Available Encounters Type Date Location Provider Dx Diagnosis Office Visit 07/04/2021 1:45p DR. Angela Medrano, N P E11.65 Type 2 diabetes mellitus with hyperglycemia Z01.89 Encounter for other specifie d special examinations E78.00 Pure hypercholesterolemia, u nspecified E66.01 Morbid (severe) obesity due to excess calories Z68.42 Body mass index [BMI] 45.0-4 9.9, adult Assessments Date Code Description Provider 07/04/2021 E11.65 Type 2 diabetes mellitus with hy perglycemia Andressa Medrano NP 07/04/2021 Z01.89 Encounter for other specified sp ecial examinations Andressa Medrano NP 07/04/2021 E78.00 Pure hypercholesterolemia, unspe cified Andressa Medrano NP 07/04/2021 E66.01 Morbid (severe) obesity due to e xcess calories Andressa Medrano NP 07/04/2021 Z68.42 Body mass index [BMI] 45.0-49.9, adult Andressa Medrano NP Plan of Treatment 07/04/2021 - Andressa Medrano NP* E11.65 Type 2 diabetes mellitus with hyperglycemia* New Medication:* Metformin HCL ER 500 mg - take two tablets by mouth twice a day * Comments:* 07/04/21- in office A1c= 8.1 %, (9.3 %, 9.4 %, 6.6 % ) Random BS= 127Meter downloaded and reviewed- fasting- 156-315, lunch- 133-310, dinner- 109-235, bedtime- 92- 232. Reviewed diet- Exercise-Medications: Basaglar 25 units qam, 35 units qhs, Trulicity 1.5mg weekly, Admelog sliding scale. Labs done 03/31/21- Scr= 0.60. GFR= >60Pt is prone to both yeast and urinary infection. * Follow up:* RTO 1 month JL * Z01.89 Encounter for other specified special examinations* Comments:* Foot Exam performed 07/04/21 . Normal light touch and monofilament testing and vibration. * E78.00 Pure hypercholesterolemia, unspecified* Comments:* Goal for LDL <100. Labs done 03/31/21- chol= 147, Trig= 103, HDL= 43, LDL= 83 AST/ALT= 55/95 * E66.01 Morbid (severe) obesity due to excess calories* Comments:* calorie restriction and exercise advised. * Z68.42 Body mass index [BMI] 45.0-49.9, adult* Comments:* Diet and exercise discussed. Functional Status Description No Information Available Mental Status Description No Information Available Referrals Refer to Reason for Referral Status Appt Date Andressa Medrano NP dm 2 Created 0 [facility] [address] [place] [id number] [phone]
--- OUTSIDE RECORDS SUMMARY | 2021-07-07 13:16 | CCD ---
Author Organization Unknown Address [address] [place] [address] Phone [phone] Care Team Providers Care Vascular Surgery Physician Name Role Phone [facility] [phone] [facility] [phone] RONAN YATES MD [phone] Allergies Code Code System Name Reaction Severity Status Onset Sulfa (Sulfonamide Antibiotics) Deactivated 10/18 07051 RxNorm Lisinopril Active 04/18/2017 Clindamycin Hcl Active 07/24/2017 Notes: JANUVIA AND METFORMIN - Reaction : pancreatic issue | SULFA | IMMODIUM Medications Name Status Start Date Stop Date Admelog U-100 Insulin lispro 100 unit/mL subcutaneous [...] 00PM Completed 2020 atorvastatin 40 mg tablet Active Not av ailable Austedo 12 mg tablet Completed 03/31/2021 Austedo 6 mg tablet Completed 03/31/2021 Austedo 9 mg tablet Completed 03/31/2021 azithromycin 250 mg tablet Completed 03/31 Cyndi Nelson U-100 Insulin 100 unit/ mL (3 mL) subcutaneous INJECT 12 UNITS UNDER THE SKIN EVERY MORNING 26 UNITS EVERY EVENING MAXIMUM DAILY DOSE 50 UNITS Active Not available BD Insulin Syringe Ultra-Fine 0.5 mL 31 gauge x /16" USE DIRECTED FOUR TIMES DAILY Active Not av ailable BD Ultra-Fine Mini Pen Needle 31 gauge x 316" USE TWO TIMES A DAY Active Not available benzonatate 200 mg capsule TAKE ONE CAPSULE BY MOUTH THREE TIMES A DAY FOR 7 DAYS Active Not available Bion Tears (PF) 0.1 %-0.3 % drops in a d ropperette INSTILL 1 DROP INTO BOTH EYES FOUR TIMES A DAY DIRECTED Active Not available bupropion HCl 100 mg tablet TAKE ONE TABLET BY MOUTH EVERY MORNING Active Not available bupropion HCl SR 150 mg tablet,12 hr sustained-release Active Not available cefdinir 300 mg capsule TAKE ONE CAPSULE BY MOUTH EVERY 12 HOURS FOR 7 DAYS Completed 04/20/2021 cephalexin 500 mg capsule Completed 2020 cetirizine 10 mg tablet Active Not avai lable cholecalciferol (vitamin D3) 50 mcg (2,0 00 unit) tablet TAKE ONE TABLET BY MOUTH EVERY MORNING AT 8AM Active Not available citalopram 20 mg tablet Completed 10/20/19 21 citalopram 40 mg tablet TAKE ONE TABLET BY MOUTH @8AM Active Not avail able clonazepam 1 mg tablet Active Not avail able embrace lancets ultra thin 30g misc Active Not available FeroSul 325 mg (65 mg iron) tablet TAKE ONE TABLET BY MOUTH EVERY OTHER DAY AT 8 00AM Active Not available fluconazole 150 mg tablet Completed 2020 fluticasone propionate 50 mcg/actuation nasal spray,suspension SPRAY [...] tablet TAKE ONE TABLET BY MOUTH @8AM Active Not avail able hydroxyzine HCl 25 mg tablet Completed hydroxyzine [...] ER 50 mg tablet,extended release 24 hr Acti ve Not available montelukast 10 mg tablet Completed naproxen 500 mg tablet Active Not avail able plhzrxib-padocxywq-ohzgjtuox 3.5 mg/mL-10,000 unit/mL- 1 % ear solution Completed 04/20/2021 Nyamyc 100,000 unit/gram topical powder Active Not [...] Not availab le OneTouch Ultra Test strips Active Not a vailable OneTouch Ultra2 Meter Active Not availa ble potassium chloride ER 10 mEq tablet,extended release Active Not available propranolol 10 mg tablet Active Not susan ilable ranitidine 150 mg tablet Completed 021 Triple Antibiotic 3.5 mg-400 unit-5,000 unit/gram topical ointme nt Completed 04/20/2021 Trulicity 1.5 mg/0.5 mL subcutaneous pen injector Active Not available venlafaxine ER 150 mg capsule,extended r elease 24 hr TAKE 1 CAPSULE BY MOUTH EVERY MORNING AND 1 CAPSULE AT 1 P.M. Active Not available venlafaxine ER 37.5 mg capsule,extended release 24 hr TAKE ONE CAPSULE BY MOUTH ONCE DAILY WITH DINNER Completed 03/31/2021 venlafaxine ER 75 mg capsule,extended re lease 24 hr TAKE ONE CAPSULE BY MOUTH EVERY MORNING Active Not available vitamin d3 50 mcg (1999 ut) tabs Active Not available Problems Name Status Onset Date Source Anemia [...] Type 2 Diabetes Mellitus without Complication Active Low Income Active 04/20/2021 At Risk - Finding Active 04/20/2021 Food Insecurity Active 04/20/2021 Type II Diabetes Mellitus Uncontrolled Active Edema of Lower Extremity Active 04/24/2021 Body Mass Index 40+ - Severely Obese Active 04/24/2021 Patient Asked to Attend Active 04/24/2021 Procedures Notes: D + C, surgery for endometrosis, section X 2, laparoscopy, endometrial ablation Results Lab Results Date Name Specimen Result Interpretation Description Value Range Status Address 03/31/2021 CBC W/ Auto Diff Blood venous Normal White Blood C ount 8.0 10 4.0-10.0 10 [facility]: 83 0 [facility] Blood venous Normal Red Blood Count 4.90 10 4.00- 5.40 10 [facility]: 830 [facility] Blood venous Normal Hemoglobin 13.9 g/dL 12.0-15. 5 g/dL [facility]: 830 [facility] Blood venous Normal Hematocrit 43.0 % 36.0-47.0 % [facility]: 830 [facility] Blood venous Normal Mean Corpuscular Volume 87.8 fL 80.0-96.0 fL [facility]: [address] [place] [address] Blood venous Normal Mean Corpuscular Hemoglob in 28.4 pg 27.0-33.0 pg [facility]: 830 [facility] Blood venous Normal Mean Corpuscular HGB Conc 32.3 g/dL 32.0-36.5 g/dL [facility]: 830 [facility] Blood venous Normal Red Cell Distribution Wid th 12.6 % 11.5-14.5 % [facility]: 830 [facility] Blood venous Normal Platelet Count, Automated 311 10 150-450 10 [facility]: 8[address] [facility] Blood venous Normal Neutrophils % 52.2 % 36.0-66. 0 % [facility]: 830 [facility] Blood venous Normal Lymph % 36.3 % 24.0-44.0 % Fi [facility]: [address] [facility] Blood venous Normal Fisher % 7.7 % 2.0-8.0 % [facility]: [address] [place] [address] Blood venous Normal Eos % 2.7 % 0.0-3.0 % [facility]: [address] [place] [address] Blood venous Normal Baso % 0.7 % 0.0-1.0 % [facility]: [address] [place] [address] Blood venous Normal Immature Granulocyte % 0.4 % 0-3.0 % [facility]: [address] [place] [address] Blood venous Normal Nucleated Red Blood Cell % 0. 0 % 0-0 % [facility]: [address] [place] [address] Blood venous Normal Neutrophils # 4.2 10 1.5-8.5 10 [facility]: [address] [place] [address] Blood venous Normal Lymph # 2.9 10 1.5-5.0 10 [facility]: [address] [place] [address] Blood venous Normal Fisher # 0.6 10 0.0-0.8 10 [facility]: [address] [place] [address] Blood venous Normal Eos # 0.2 10 0.0-0.5 10 [facility]: [address] [place] [address] Blood venous Normal Baso # 0.1 10 0.0-0.2 10 [facility]: [address] [place] [address] 03/31/2021 HbA1C (Hemoglobin a1C), Blood Blood venous Normal Hemoglobin a1C 9.3 % [facility]: [address] [place] [address] Blood venous High Estimated Average Glucose 220 mg/dL 60-110 mg/dL [facility]: [address] [place] [address] 03/31/2021 Urinalysis Manual Normal Appearance, Urine Manual clear clear [facility]: [address] [place] [address] Normal Color, Urine Manual yellow yellow Fi nal [facility]: [address] [place] [address] Normal pH,urine Man 5.5 units 5.0 - 7.0 uni ts [facility]: [address] [place] [address] High Specific [place],urine Manual 1.037 1.002-1.035 [facility]: 0 [facility] Normal Protein, Urine Manual negative mg/dL negative mg/dL [facility]: [address] [place] [address] High Glucose, Urine (UA) Manual 4+( 1000 mg/dL) mg/dL negative mg/dL [facility]: [address] [place] [address] Normal Ketone, Urine Manual negative mg/dL negative mg/dL [facility]: [address] [place] [address] Normal Urobilinogen, Urine Manual normal mg /dL normal mg/dL [facility]: [address] [place] [address] Normal Bilirubin, Urine Manual negative neg ative [facility]: [address] [place] [address] Normal Nitrite, Urine Manual negative negat akosua [facility]: [address] [place] [address] Normal Leukocyte Esterase, Urine Man negati ve negative [facility]: [address] [place] [address] Normal Blood Urine Manual negative negative [facility]: [address] [place] [address] 03/31/2021 CMP, Serum or Plasma Blood venous High Glu cose, Fasting 174 mg/dL 70-100 mg/dL [facility] nter: [address] [place] [address] Blood venous Normal Blood Urea Nitrogen 11 mg/dL 7-18 mg/dL [facility]: [address] [place] [address] Blood venous Normal Creatinine for GFR 0.60 mg/dL 0.55-1.30 mg/dL [facility]: [address] [place] [address] Blood venous Normal Glomerular Filtration Rate > 60.0 >58 [facility]: [address] [place] [address] Blood venous Normal Sodium Level 141 mEq/L 136-14 5 mEq/L [facility]: [address] [place] [address] Blood venous Normal Potassium Serum 4.2 mEq/L 3.5 -5.1 mEq/L [facility]: [address] [place] [address] Blood venous High Chloride Level 108 mEq/L 98-1 07 mEq/L [facility]: [address] [place], [place] [address] Blood venous Normal Carbon Dioxide Level 27 mEq/L 21-32 mEq/L [facility]: 830 [facility] Blood venous Low Anion Gap 6 mEq/L 8-16 mEq/L [facility]: 830 [facility] Blood venous Normal Calcium Level 9.6 mg/dL 8.5-1 0.1 mg/dL [facility]: 830 [facility] Blood venous High AST/SGOT 55 U/L 7-37 U/L [facility]: [address] [place] [address] Blood venous High ALT/SGPT 95 U/L 12-78 U/L [facility]: 830 [facility] Blood venous Normal Alkaline Phosphatase 117 U/L 45-117 U/L [facility]: [address] [place] [address] Blood venous Normal Bilirubin,total 0.6 mg/dL 0.2 -1.0 mg/dL [facility]: 830 [facility] Blood venous Normal Total Protein 7.1 gm/dL 6.4-8 .2 gm/dL [facility]: [address] [place] [address] Blood venous Normal Albumin 3.5 gm/dL 3.2-5.2 gm/ dL [facility]: [address] [place] [address] Blood venous Low Albumin/globulin Ratio 1.0 1.2-2.2 [facility]: [address] [place] [address] 03/31/2021 Lipid Panel, Blood Blood venous Normal Trigl ycerides Level 103 mg/dL <150 mg/dL [facility] nter: 8[address] [facility] Blood venous Normal Cholesterol Level 147 mg/dL < 200 mg/dL [facility]: 0 [facility] Blood venous Normal HDL Cholesterol 43 mg/dL >40 mg/dL [facility]: 0 [facility] Blood venous Normal LDL Cholesterol 83 mg/dL <100 mg/dL [facility]: 0 [facility] Blood venous Normal Non-hdl-c 104 mg/dL [facility]: [address] [facility] Blood venous Normal Cholesterol Risk Ratio 3.418 <5 [facility]: 8[address] [facility] 03/31/2021 Urinalysis Manual Normal Appearance, Urine Manual clear clear [facility]: 8[address] [facility] Normal Color, Urine Manual yellow yellow Fi [facility]: [address] [facility] Normal pH,urine Man 5.5 units 5.0 - 7.0 uni ts [facility]: [address] [facility] High Specific [place],urine Manual 1.037 1.002-1.035 [facility]: 8[address] [facility] Normal Protein, Urine Manual negative mg/dL negative mg/dL [facility]: 0 [facility] High Glucose, Urine (UA) Manual 4+( 1000 mg/dL) mg/dL negative mg/dL [facility]: [address] [facility] Normal Ketone, Urine Manual negative mg/dL negative mg/dL [facility]: 8[address] [facility] Normal Urobilinogen, Urine Manual normal mg /dL normal mg/dL [facility]: [address] [facility] Normal Bilirubin, Urine Manual negative neg ative [facility]: 8[address] [facility] Normal Nitrite, Urine Manual negative negat akosua [facility]: [address] [facility] Normal Leukocyte Esterase, Urine Man negati ve negative [facility]: [address] [facility] Normal Blood Urine Manual negative negative [facility]: [address] [facility] 03/31/2021 Culture, Urine URINE,CLEAN CATCH No observation recorded. [facility]: [address] [facility] 03/31/2021 Hemoglobin a1C, Fingerstick Off-scale High Hba1 C [facility]: [address] [place] [address] 03/31/2021 Glucose, Fingerstick, Blood Blood Glucos e: mg/dl 183 [facility] Medical: [address] [place] [address] 03/10/2021 Ctni Istat Normal Istat Troponin 0.00 NG/m L 0.00-0.08 NG/mL [facility]: 0 [facility] 03/10/2021 HbA1C (Hemoglobin a1C), Blood Normal Hemogl obin a1C 9.4 % [facility]: 0 [facility] High Estimated Average Glucose 223 mg/dL 60-110 mg/dL [facility]: 0 [facility] 03/10/2021 Hepatic Function Panel, Serum High AST/SG OT 117 U/L 7-37 U/L [facility]: [address] [place] [address] High ALT/SGPT 140 U/L 12-78 U/L [facility]: 0 [facility] Normal Alkaline Phosphatase 116 U/L 45-117 U/L [facility]: 0 [facility] Normal Bilirubin,total 1.0 mg/dL 0.2-1.0 mg /dL [facility]: 0 [facility] High Bilirubin,direct 0.3 mg/dL 0.0-0.2 m g/dL [facility]: [address] [place] [address] Normal Total Protein 7.2 gm/dL 6.4-8.2 gm/d L [facility]: [address] [place] [address] Normal Albumin 3.5 gm/dL 3.2-5.2 gm/dL Uspriya l [facility]: [address] [place] [address] Low Albumin/globulin Ratio 0.9 1.2-2. 2 [facility]: 0 [facility] 03/10/2021 BMP, Serum or Plasma High Glucose, Fastin g 174 mg/dL 70-100 mg/dL [facility]: 83 0 [facility] Normal Blood Urea Nitrogen 12 mg/dL 7-18 mg /dL [facility]: 0 [facility] Normal Creatinine for GFR 0.63 mg/dL 0.55-1 .30 mg/dL [facility]: [address] [place] [address] Normal Glomerular Filtration Rate > 60.0 >5 8 [facility]: [address] [place] [address] Normal Sodium Level 141 mEq/L 136-145 mEq/L [facility]: [address] [place] [address] Normal Potassium Serum 3.7 mEq/L 3.5-5.1 mE q/L [facility]: [address] [place] [address] High Chloride Level 108 mEq/L 98-107 mEq/ L [facility]: [address] [place] [address] Normal Carbon Dioxide Level 28 mEq/L 21-32 mEq/L [facility]: [address] [place] [address] Low Anion Gap 5 mEq/L 8-16 mEq/L [facility]: [address] [place] [address] Normal Calcium Level 9.5 mg/dL 8.5-10.1 mg/ dL [facility]: [address] [place] [address] 03/10/2021 Lipase, Serum or Plasma Normal Lipase 96 U/L 7 3-393 U/L [facility]: [address] [place] [address] 03/10/2021 TSH, Serum or Plasma Blood venous Normal Thyroid Stimulating Hormone 1.740 uIU/mL 0.358-3.740 uIU/mL [facility]: [address] [place] [address] 03/10/2021 CBC W/ Auto Diff Normal White Blood Count 7.3 10 4.0-10.0 10 [facility]: [address] [place] [address] Normal Red Blood Count 5.21 10 4.00-5.40 10 [facility]: [address] [place] [address] Normal Hemoglobin 15.1 g/dL 12.0-15.5 g/dL [facility]: [address] [place] [address] Normal Hematocrit 44.8 % 36.0-47.0 % [facility]: [address] [place] [address] Normal Mean Corpuscular Volume 86.0 fL 80.0 -96.0 fL [facility]: [address] [place] [address] Normal Mean Corpuscular Hemoglobin 29.0 pg 27.0-33.0 pg [facility]: 8[address] [facility] Normal Mean Corpuscular HGB Conc 33.7 g/dL 32.0-36.5 g/dL [facility]: [address] [facility] Normal Red Cell Distribution Width 12.5 % 1 1.5-14.5 % [facility]: [address] [facility] Normal Platelet Count, Automated 296 10 150 -450 10 [facility]: 8[address] [facility] Normal Nucleated Red Blood Cell % 0.0 % 0- 0 % [facility]: [address] [facility] 03/10/2021 Differential Panel, Blood Normal Neutrophil s 59 % 28-66 % [facility]: 0 [facility] Normal Lymphocytes 27 % 16-44 % [facility]: [address] [facility] High Monocytes 9 % 0-5 % [facility]: [address] [facility] Normal Atypical Lymph 5 % 0-5 % [facility]: 8[address] [facility] 03/10/2021 Platelet Count, Estimate, Blood Normal Platelet Estimate normal normal [facility] nter: 0 [facility] 10/20/2020 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), QL, 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, 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 Nasopharyngeal Normal Sars Cov 2 RNA not detected not detected Fi nal [facility] [facility]): [address] 07/30/2020 HbA1C (Hemoglobin a1C), Blood Normal Hemogl obin a1C 6.6 % [facility]: 8[address] [facility] High Estimated Average Glucose 143 mg/dL 60-110 mg/dL [facility]: [address] [facility] 07/30/2020 CMP, Serum or Plasma High Glucose, Fastin g 131 mg/dL 70-100 mg/dL [facility]: 83 0 [facility] Normal Blood Urea Nitrogen 16 mg/dL 7-18 mg /dL [facility]: 8[address] [facility] Normal Creatinine for GFR 0.77 mg/dL 0.55-1 .30 mg/dL [facility]: 8[address] [facility] Normal Glomerular Filtration Rate > 60.0 >5 8 [facility]: 8[address] [facility] Normal Sodium Level 141 mEq/L 136-145 mEq/L [facility]: 8[address] [facility] Normal Potassium Serum 3.8 mEq/L 3.5-5.1 mE q/L [facility]: 8[address] [facility] Normal Chloride Level 105 mEq/L 98-107 mEq/ L [facility]: [address] [facility] High Carbon Dioxide Level 33 mEq/L 21-32 mEq/L [facility]: [address] [facility] Low Anion Gap 3 mEq/L 8-16 mEq/L [facility]: 8[address] [facility] Normal Calcium Level 9.4 mg/dL 8.5-10.1 mg/ dL [facility]: 8[address] [facility] Normal AST/SGOT 12 U/L 7-37 U/L [facility]: [address] [facility] Normal ALT/SGPT 28 U/L 12-78 U/L [facility]: [address] [facility] Normal Alkaline Phosphatase 112 U/L 45-117 U/L [facility]: [address] [facility] High Bilirubin,total 1.1 mg/dL 0.2-1.0 mg /dL [facility]: [address] [facility] Normal Total Protein 7.6 gm/dL 6.4-8.2 gm/d L [facility]: 8[address] [facility] Normal Albumin 4.0 gm/dL 3.2-5.2 gm/dL [facility]: [address] [facility] Low Albumin/globulin Ratio 1.1 1.2-2. 2 [facility]: [address] [facility] 07/30/2020 Lipid Panel, Blood Normal Triglycerides Lev el 63 mg/dL <150 mg/dL [facility]: 83 0 [facility] Normal Cholesterol Level 156 mg/dL <200 mg/ dL Final [facility]: [address] [facility] Normal HDL Cholesterol 68 mg/dL >40 mg/dL F inal [facility]: [address] [facility] Normal LDL Cholesterol 75 mg/dL <100 mg/dL Final [facility]: [address] [facility] Normal Non-hdl-c 88 mg/dL Final [facility]: [address] [facility] Normal Cholesterol Risk Ratio 2.294 <5 Final [facility]: [address] [facility] 07/30/2020 TSH, Serum or Plasma Normal Thyroid Stimulating Hormone 3.690 uIU/mL 0.358-3.740 uIU/mL [facility] nter: [address] [facility] Past Encounters 04/20/2021 Type II Diabetes Mellitus Uncontrolled; Low Income; Patient Asked to Attend; Edema of Lower Extremity; Body Mass Index 40+ - Severely Obese Bridget[facility] Nash [facility]: [address] [place] [id number], Ph. 03/31/2021 Severe Obesity; Type II Diabetes Mellitus Uncontrolled; Cough; Candidiasis of Vagina; Body Mass Index 40+ - Severely Obese TIMO Lacey: [address] [place] [address], Ph. 10/20/2020 Upper Respiratory Infection ESVIN Laureano: [address] [place] [address], Ph. 07/30/2020 Adult Health Examination ESVIN Laureano: [address] [place] [address], Ph. Social History Tobacco Smoking Status Never Smoker Vaccine List Vaccine Type influenza, injectable, quadrivalent, pre servative free 07/07/20190.5 mL influenza, seasonal, injectable 07/08/20180.5 mL Plan of Care Patient Instructions Blood sugars still elevated. We will inc [...] Surgeries None recorded. Imaging None recorded. Vitals 04/20/2021 10:40AM ANNUAL EXAM Height Weight BMI Blood Pressure 67 in 298 lbs 6 oz 46.7 kg/m2 130/86 mm[Hg] 03/31/2021 03:00PM ESTABLISHED [id number] Height Weight BMI Blood Pressure 67 in 293 lbs 8 oz 46 kg/m2 118/77 mm[Hg] 10/20/2020 01:00PM ESTABLISHED [id number] Height Weight BMI Blood Pressure 67 in [...]
--- OUTSIDE RECORDS SUMMARY | 2021-07-07 13:16 | CCD ---
Author Author [facility] Organization [facility] Address Unknown Phone Unavailable Care Team Providers Care Occupational Health Technician Name Role Phone Tali Valera Unavailable PROBLEMS Type Condition ICD9-CM Code [id number] Code Onset Dates Condition S tatus W/U Status Risk SNOMED Code Notes Problem Uterine fibroid 218.9 Active confirmed 9531 5005 Problem Spotting N92.0 Active confirmed 0579954 Problem Excessive or frequent menstruation 626.2 Activ e confirmed 542860058 Problem Mastodynia 611.71 Active confirmed 61112914 Problem Abdominal distension, gaseous 787.3 Active confirm ed [id number] ALLERGIES Allergen (clinical drug ingredient) Drug/Non Drug Allergy do cumented on EMR Reaction Allergy Type Onset Date Status clindamycin Clindamycin HCl([facility] Code:[address]-33) unknown Drug A llergy Active Sulfa (for allergy use only) Rash Drug Allergy Active loperamide Imodium A-D(ND Code:[address]-30) Rash Drug Allerg y Active ENCOUNTERS from 1972 to 2021-05-11 Encounter Location Date Provider Diagnosis [facility] [address] [place] [address] [place] [address] Apr, Tali Valera IMMUNIZATIONS No Information SOCIAL HISTORY Tobacco Use: Social History Observation Description Date Details (start date - stop date) Never Smoker Sex Assigned At : Social History Observation Description Sex Assigned At Unknown Education: Question Answer Notes Level of Education: High School Language: Question Answer Notes Languages spoken: Italian Presybeterian: Question Answer Notes Presybeterian 35 None Alcohol Screening: Question Answer Notes Did you have a drink containing alcohol in the past year? No Points 0 Interpretation Negative BMI Care Goal Follow-Up Question Answer Notes Above Normal BMI Follow-Up Giving encouragement to exercise Tobacco Use: Question Answer Notes Are you a: never smoker never smoker REASON FOR REFERRAL No Information VITAL SIGNS No information MEDICATIONS Medication SIG (Take, Route, Frequency, Duration) Notes Start Da te End Date Status Vitamin D 25 MCG (1000 UT) 1 tablet Orally Once a day Active Omeprazole 20mg 20mg 1 tab(s) oral once a day Not-Taking Aspir-81 81 MG 1 tablet Orally Once a day for 30 day(s) Active Propranolol HCl 10 MG 1 tablet Orally Once a day Active Folic Acid 1 MG 1 tablet Orally Once a day Active amLODIPine Besy-Benazepril HCl 5-20 MG 1 capsule Orall y Once a day for 30 day(s) Not-Taking Diflucan 150 MG 1 tablet Orally Once a day for 1 dose(s) 0 9 Jun, 2018 Not-Taking KlonoPIN 1 MG 1 tablet Orally twice daily Active Multivitamins otc 1 Orally once a day Active Abilify 5 MG 1/2 tab Orally twice daily Active Condoms condom as directed Apr, Active Fluticasone Propionate 50 MCG/ACT 1 spray in each nostril Nasall y Once a day Active metFORMIN HCl 1000mg 1 tab(s) Orally twice a day for 30 day(s) Not-Taking Diflucan 150 MG 1 tablet Orally Once a day for 1 dose(s) 1 5 Jun, 2018 Not-Taking Diflucan 150 MG 1 tablet Orally once a week for 21 day(s) Feb, Active Vitamin E 400 UNIT 1 capsule Orally Once a day for 30 day(s) Sep, Active amLODIPine Besylate 5 MG 1 tablet Orally Once a day Active Fluconazole 150 MG 1 tablet Orally day 13 and 7 for 7 days Oct, Active atenolol 100 100mg 1 tab(s) oral once a day Not-Taking Ferrous Sulfate 325 (65 Fe) MG 1 tablet Orally every other day f or 30 day(s) Active Austedo 12 MG 1 tablet with food Orally Twice a day Active ZyrTEC 10 MG 1 tablet Orally Once a day Active clonazePAM 1 MG (Schedule IV Drug) TAKE ONE TABLET BY MOUTH THREE TIMES DAILY MAX DAILY DOSE THREE TABLETS Oral for 30 Active Fish Oil 1000 MG 1 capsule Orally Once a day Not-Taking Citalopram Hydrobromide 40 MG 0.5 tablet Orally Once a day Active Venlafaxine HCl ER 75 MG TAKE ONE CAPSULE BY MOUTH @1PM Oral for 17 Active Basaglar 100 UNIT/ML - Solution as directed Subcutaneous Active Diflucan 150 MG 1 tablet Orally for 10 day(s) Not-Taking Levothyroxine Sodium 88 MCG 1 capsule in the morning o n an empty stomach Orally Once a day Active Trulicity 0.75 MG/0.5ML as directed Subcutaneous Active Proventil HFA 108 (90 Base) MCG/ACT 2 puffs as needed Inhalation as needed Not-Taking Amoxicillin 1 tab Oral for 14 days N ot-Taking busPIRone HCl 10mg 1 tab(s) Orally twice daily for 30 day(s) Not-Taking Pepcid 20 MG 1 tablet Orally once daily for 30 day(s) Not-Taking Spironolactone 50 MG 1 tablet Orally Once a day for 30 day(s) Not-Taking Artificial Tear Solution as directed Ophthalmic Active Zantac 150 MG 1 tablet at bedtime Orally Once a day Active HumaLOG 100 UNIT/ML 2 to 4 units Subcutaneous 3 x daily when needed Not-Taking hydroCHLOROthiazide 25 mg 1 tablet in the morning Orally Once a day Active Lantus 100 UNIT/ML 30units Subcutaneous daily Not-Taking Tylenol Arthritis Pain 650 MG 1 as needed Orally daily Not-Taking Metoprolol Succinate ER 50 MG 1 tablet Orally Once a day Active Loratadine Allergy Relief 10 MG 1 tablet on the tongue and allow to dissolve Orally Once a day for 30 day(s) Active Nystatin 160223 UNIT/GM 1 application Externally Twice a day for 14 Active Latuda _ 1 tab,20mg orally bid Not -Taking Admelog 100 UNIT/ML as directed Subcutaneous Active PROCEDURES No Information RESULTS No Results REASON FOR VISIT hcg is negative MEDICAL (GENERAL) HISTORY Type Description Date Medical History hypertension Medical History Esophageal reflux Medical History IBS Medical History endometriosis Medical History type II diabetes Medical History abnormal pap smear,[id number]. Medical History cataracts/deacon. Surgical History C section Surgical History laparoscopy Surgical History D&C, post misc. Surgical History left breast biopsy/benign/with a clip ,11/24 Surgical History colonoscopy 2004 Surgical History cataract removal/right eye, then left ey e 01/04/11 Surgical History carpal tunnel release/right 2010 Surgical History tear duct plugs 04/2013 Surgical History D&C, hysteroscopy,polypectomy, endometr ial ablation 02/2014 Hospitalization History pancreatitis 05/28/14 Hospitalization History [facility] 2019 Goals Section No Information Health Concerns No Information MEDICAL EQUIPMENT No Information MENTAL STATUS No Information FUNCTIONAL STATUS No Information ASSESSMENTS No Information PLAN OF TREATMENT Medication Medication Name Sig Start Date Stop Date Nystatin 278078 UNIT/GM 1 application Externally Twice a day for 14 Diflucan 150 MG 1 tablet Orally once a week for 21 day(s) Feb Next Appt Details Provider Name:Tori Abdullahic, 2021-06-09 04:00:00 PM, [address] [facility], , [place], [address], Insurance Providers Payer Name Payer Address Payer Phone Insured Name Patient Relati onship to Insured Coverage Start Date Coverage End Date [facility] [employer] [address] [facility] [phone] SUZE DOWNEY self
--- OUTSIDE RECORDS SUMMARY | 2021-07-07 13:16 | CCD ---
Author Organization Unknown Address [address] [id number] Phone [phone] Care Team Providers [employer] Name Role Phone [facility] [phone] [facility] 2 [phone] RONAN YATES MD [phone] Allergies Code Code System Name Reaction Severity Status Onset Sulfa (Sulfonamide Antibiotics) Hives Moderate Active 10/31/2016 41644 RxNorm Lisinopril Active Clindamycin Hcl Active 03/2017 318701 RxNorm IMODIUM A-D Hives Moderate Active Notes: JANUVIA AND METFORMIN - Reaction : pancreatic issue (caused pancreatitis) Medications Name Status Start Date Stop Date Admelog U-100 Insulin lispro 100 unit/mL subcutaneous solution INJECT UNDER THE SKIN THREE TIMES A DAY PER SLIDING SCALE MAXIMUM DAILY DOSE 50 UNITS Active Not available amlodipine 5 mg tablet TAKE ONE TABLET BY MOUTH EVERY DAY AT 5 00PM Active Not available ammonium lactate 12 % topical cream Active [...] 150 mg tablet,12 hr kait tained-release TAKE ONE TABLET BY MOUTH EVERY MORNING Active Not available cefdinir 300 mg capsule TAKE ONE CAPSULE BY MOUTH EVERY 12 HOURS FOR 7 DAYS Completed 06/14/2021 cephalexin 500 mg capsule TAKE ONE CAPSULE BY MOUTH THREE TIMES A DAY FOR 7 DAYS Active Not available cetirizine 10 mg tablet TAKE ONE TABLET BY MOUTH EVERY MORNING AT 8AM Active Not available cholecalciferol (vitamin D3) 50 mcg (2,0 00 unit) tablet TAKE ONE TABLET BY MOUTH EVERY MORNING AT 8AM Active Not available citalopram 20 mg tablet Active Not avai lable citalopram 40 mg tablet TAKE ONE TABLET [...] Active Not available fluconazole 150 mg tablet TAKE ONE TABLET BY MOUTH ONCE FOR 1 DOSE REPEAT IN 48 HOURS Active Not available fluticasone propionate 50 mcg/actuation nasal spray,suspension SPRAY [...] tablet Completed naproxen 500 mg tablet Completed [id number] 3.5 mg/mL-10,000 unit/mL- 1 % ear solution [...] 03/17 OneTouch Delica Plus Lancet 30 gauge Active Not available OneTouch Delica Plus Lancet 33 gauge Active [...] Active Not available propranolol 10 mg tablet TAKE ONE TABLET BY MOUTH THREE TIMES A DAY FOR TREMORS Active Not available ranitidine 150 mg tablet Completed 021 Triple Antibiotic 3.5 mg-400 unit-5,000 unit/gram topical ointme nt Completed 04/20/2021 Trulicity 1.5 mg/0.5 mL subcutaneous pen injector INJECT 1.5MG UNDER THE SKIN WEEKLY Active Not available Tylenol Extra Strength 500 mg tablet Take 1 - 2 tablets by mouth every 6 hours as needed. Active Not available venlafaxine ER 150 mg [...] Normal HCG, Serum Qualitative negative negative Final [facility]: [address] [facility] 03/31/2021 CBC W/ Auto Diff Blood venous Normal White Blood C ount 8.0 10 4.0-10.0 10 Final [facility]: [address] [facility] Blood venous Normal Red Blood Count 4.90 10 4.00- 5.40 10 [facility]: [address] [facility] Blood venous Normal Hemoglobin 13.9 g/dL 12.0-15. 5 g/dL Final [facility]: [address] [facility] Blood venous Normal Hematocrit 43.0 % 36.0-47.0 % [facility]: [address] [facility] Blood venous Normal Mean Corpuscular Volume 87.8 fL 80.0-96.0 fL [facility]: [address] [place] [address] Blood venous Normal Mean Corpuscular Hemoglob in 28.4 pg 27.0-33.0 pg [facility]: [address] [place] [address] Blood venous Normal Mean Corpuscular HGB Conc 32.3 g/dL 32.0-36.5 g/dL [facility]: [address] [place] [address] Blood venous Normal Red Cell Distribution Wid th 12.6 % 11.5-14.5 % [facility]: [address] [place] [address] Blood venous Normal Platelet Count, Automated 311 10 150-450 10 [facility]: [address] [place] [address] Blood venous Normal Neutrophils % 52.2 % 36.0-66. 0 % [facility]: [address] [place] [address] Blood venous Normal Lymph % 36.3 % 24.0-44.0 % [facility]: [address] [place] [address] Blood venous Normal Laurens % 7.7 % 2.0-8.0 % [facility]: [address] [place] [address] Blood venous Normal Eos % 2.7 % 0.0-3.0 % [facility]: [address] [place] [address] Blood venous Normal Baso % 0.7 % 0.0-1.0 % [facility]: [address] [place] [address] venous Normal Immature Granulocyte % 0.4 % 0-3.0 % [facility]: [address] [place] [address] Blood venous Normal Nucleated Red Blood Cell % 0. 0 % 0-0 % [facility]: [address] [place] [address] Blood venous Normal Neutrophils # 4.2 10 1.5-8.5 10 [facility]: [address] [place] [address] Blood venous Normal Lymph # 2.9 10 1.5-5.0 10 [facility] uche [facility]: [address] [place] [address] Blood venous Normal Laurens # 0.6 10 0.0-0.8 10 Supriya reyes [facility]: [address] [place] [address] Blood venous Normal Eos # 0.2 10 0.0-0.5 10 [facility]: [address] [facility] Blood venous Normal Baso # 0.1 10 0.0-0.2 10 Supriya [facility]: [address] [facility] 03/31/2021 HbA1C (Hemoglobin a1C), Blood Blood venous Normal Hemoglobin a1C 9.3 % [facility]: [address] [facility] Blood venous High Estimated Average Glucose 220 mg/dL 60-110 mg/dL [facility]: [address] [facility] 03/31/2021 Urinalysis Manual Normal Appearance, Urine Manual clear clear [facility]: [address] [facility] Normal Color, Urine Manual yellow yellow [facility]: [address] [facility] Normal pH,urine Man 5.5 units 5.0 - 7.0 uni ts [facility]: [address] [facility] High Specific [place],urine Manual 1.037 1.002-1.035 [facility]: [address] [facility] Normal Protein, Urine Manual negative mg/dL negative mg/dL [facility]: 0 [facility] High Glucose, Urine (UA) Manual 4+( 1000 mg/dL) mg/dL negative mg/dL [facility]: [address] [facility] Normal Ketone, Urine Manual negative mg/dL negative mg/dL [facility]: [address] [facility] Normal Urobilinogen, Urine Manual normal mg /dL normal mg/dL [facility]: [address] [facility] Normal Bilirubin, Urine Manual negative neg ative [facility]: [address] [facility] Normal Nitrite, Urine Manual negative negat akosua [facility]: [address] [facility] Normal Leukocyte Esterase, Urine Man negati ve negative [facility]: [address] [facility] Normal Blood Urine Manual negative negative [facility]: [address] [facility] 03/31/2021 CMP, Serum or Plasma Blood venous High Glu cose, Fasting 174 mg/dL 70-100 mg/dL [facility] nter: [address] [facility] Blood venous Normal Blood Urea Nitrogen 11 mg/dL 7-18 mg/dL [facility]: [address] [place] [address] Blood venous Normal Creatinine for GFR 0.60 mg/dL 0.55-1.30 mg/dL [facility]: [address] [place] [address] Blood venous Normal Glomerular Filtration Rate > 60.0 >58 [facility]: 0 [facility] Blood venous Normal Sodium Level 141 mEq/L 136-14 5 mEq/L [facility]: [address] [place] [address] Blood venous Normal Potassium Serum 4.2 mEq/L 3.5 -5.1 mEq/L [facility]: [address] [place] [address] Blood venous High Chloride Level 108 mEq/L 98-1 07 mEq/L [facility]: [address] [place] [address] Blood venous Normal Carbon Dioxide Level 27 mEq/L 21-32 mEq/L [facility]: [address] [place] [address] Blood venous Low Anion Gap 6 mEq/L 8-16 mEq/L [facility]: [address] [place] [address] Blood venous Normal Calcium Level 9.6 mg/dL 8.5-1 0.1 mg/dL [facility]: 0 [facility] Blood venous High AST/SGOT 55 U/L 7-37 U/L Supriya l [facility]: [address] [place] [address] Blood venous High ALT/SGPT 95 U/L 12-78 U/L [facility]: [address] [facility] Blood venous Normal Alkaline Phosphatase 117 U/L 45-117 U/L [facility]: [address] [place] [address] Blood venous Normal Bilirubin,total 0.6 mg/dL 0.2 -1.0 mg/dL [facility]: 0 [facility] Blood venous Normal Total Protein 7.1 gm/dL 6.4-8 .2 gm/dL [facility]: [address] [facility] Blood venous Normal Albumin 3.5 gm/dL 3.2-5.2 gm/ dL [facility]: 0 [facility] Blood venous Low Albumin/globulin Ratio 1.0 1.2-2.2 [facility]: [address] [facility] 03/31/2021 Lipid Panel, Blood Blood venous Normal Trigl ycerides Level 103 mg/dL <150 mg/dL [facility] nter: [address] [facility] Blood venous Normal Cholesterol Level 147 mg/dL < 200 mg/dL [facility]: 0 [facility] Blood venous Normal HDL Cholesterol 43 mg/dL >40 mg/dL [facility]: 0 [facility] Blood venous Normal LDL Cholesterol 83 mg/dL <100 mg/dL [facility]: 0 [facility] Blood venous Normal Non-hdl-c 104 mg/dL [facility]: [address] [facility] Blood venous Normal Cholesterol Risk Ratio 3.418 <5 [facility]: [address] [facility] 03/31/2021 Urinalysis Manual Normal Appearance, Urine Manual clear clear [facility]: [address] [facility] Normal Color, Urine Manual yellow yellow [facility]: 0 [facility] Normal pH,urine Man 5.5 units 5.0 - 7.0 uni ts [facility]: 0 [facility] High Specific [place],urine Manual 1.037 1.002-1.035 [facility]: 0 [facility] Normal Protein, Urine Manual negative mg/dL negative mg/dL [facility]: 0 [facility] High Glucose, Urine (UA) Manual 4+( 1000 mg/dL) mg/dL negative mg/dL [facility]: 0 [facility] Normal Ketone, Urine Manual negative mg/dL negative mg/dL [facility]: 0 [facility] Normal Urobilinogen, Urine Manual normal mg /dL normal mg/dL [facility]: [address] [facility] Normal Bilirubin, Urine Manual negative neg ative [facility]: [address] [facility] Normal Nitrite, Urine Manual negative negat akosua [facility]: [address] [facility] Normal Leukocyte Esterase, Urine Man negati ve negative [facility]: [address] [facility] Normal Blood Urine Manual negative negative [facility]: [address] [facility] 03/31/2021 Culture, Urine URINE,CLEAN CATCH No observation recorded. [facility]: [address] [facility] 03/31/2021 Hemoglobin a1C, Fingerstick Off-scale High Hba1 C [facility]: [address] [place] [address] 03/31/2021 Glucose, Fingerstick, Blood Blood Glucos e: mg/dl 183 [facility]: [address] [place] [address] 03/10/2021 Ctni Istat Normal Istat Troponin 0.00 NG/m L 0.00-0.08 NG/mL [facility]: [address] [facility] 03/10/2021 HbA1C (Hemoglobin a1C), Blood Normal Hemogl obin a1C 9.4 % [facility]: 0 [facility] High Estimated Average Glucose 223 mg/dL 60-110 mg/dL [facility]: 0 [facility] 03/10/2021 Hepatic Function Panel, Serum High AST/SG OT 117 U/L 7-37 U/L [facility]: [address] [facility] High ALT/SGPT 140 U/L 12-78 U/L [facility]: [address] [facility] Normal Alkaline Phosphatase 116 U/L 45-117 U/L [facility]: [address] [facility] Normal Bilirubin,total 1.0 mg/dL 0.2-1.0 mg /dL [facility]: 0 [facility] High Bilirubin,direct 0.3 mg/dL 0.0-0.2 m g/dL [facility]: [address] [facility] Normal Total Protein 7.2 gm/dL 6.4-8.2 gm/d L [facility]: [address] [facility] Normal Albumin 3.5 gm/dL 3.2-5.2 gm/dL Supriya l [facility]: [address] [facility] Low Albumin/globulin Ratio 0.9 1.2-2. 2 [facility]: [address] [facility] 03/10/2021 BMP, Serum or Plasma High Glucose, Fastin g 174 mg/dL 70-100 mg/dL [facility]: 83 0 [facility] Normal Blood Urea Nitrogen 12 mg/dL 7-18 mg /dL [facility]: [address] [place] [address] Normal Creatinine for GFR 0.63 mg/dL 0.55-1 .30 mg/dL [facility]: [address] [place] [address] Normal Glomerular Filtration Rate > 60.0 >5 8 [facility]: [address] [facility] Normal Sodium Level 141 mEq/L 136-145 mEq/L [facility]: 0 [facility] Normal Potassium Serum 3.7 mEq/L 3.5-5.1 mE q/L [facility]: 0 [facility] High Chloride Level 108 mEq/L 98-107 mEq/ L [facility]: 0 [facility] Normal Carbon Dioxide Level 28 mEq/L 21-32 mEq/L [facility]: 0 [facility] Low Anion Gap 5 mEq/L 8-16 mEq/L [facility]: [address] [facility] Normal Calcium Level 9.5 mg/dL 8.5-10.1 mg/ dL [facility]: 0 [facility] 03/10/2021 Lipase, Serum or Plasma Normal Lipase 96 U/L 7 3-393 U/L [facility]: [address] [facility] 03/10/2021 TSH, Serum or Plasma Blood venous Normal Thyroid Stimulating Hormone 1.740 uIU/mL 0.358-3.740 uIU/mL [facility]: 0 [facility] 03/10/2021 CBC W/ Auto Diff Normal White Blood Count 7.3 10 4.0-10.0 10 [facility]: [address] [facility] Normal Red Blood Count 5.21 10 4.00-5.40 10 [facility]: [address] [place] [address] Normal Hemoglobin 15.1 g/dL 12.0-15.5 g/dL [facility]: [address] [place] [address] Normal Hematocrit 44.8 % 36.0-47.0 % [facility]: [address] [place] [address] Normal Mean Corpuscular Volume 86.0 fL 80.0 -96.0 fL [facility]: [address] [place] [address] Normal Mean Corpuscular Hemoglobin 29.0 pg 27.0-33.0 pg [facility]: [address] [place] [address] Normal Mean Corpuscular HGB Conc 33.7 g/dL 32.0-36.5 g/dL [facility]: 0 [facility] Normal Red Cell Distribution Width 12.5 % 1 1.5-14.5 % [facility]: [address] [place] [address] Normal Platelet Count, Automated 296 10 150 -450 10 [facility]: 0 [facility] Normal Nucleated Red Blood Cell % 0.0 % 0- 0 % [facility]: [address] [facility] 03/10/2021 Differential Panel, Blood Normal Neutrophil s 59 % 28-66 % [facility]: 0 [facility] Normal Lymphocytes 27 % 16-44 % [facility]: 0 [facility] High Monocytes 9 % 0-5 % [facility]: [address] [facility] Normal Atypical Lymph 5 % 0-5 % [facility]: 0 [facility] 03/10/2021 Platelet Count, Estimate, Blood Normal Platelet Estimate normal normal Final [facility]: [address] [facility] 10/20/2020 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), QL, data capture specialist-PCR, 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 Nasopharyngeal Normal Sars Cov 2 RNA not detected not detected [facility] 07/30/2020 HbA1C (Hemoglobin a1C), Blood Normal Hemogl obin a1C 6.6 % [facility]: [address] [facility] High Estimated Average Glucose 143 mg/dL 60-110 mg/dL [facility]: [address] [facility] 07/30/2020 CMP, Serum or Plasma High Glucose, Fastin g 131 mg/dL 70-100 mg/dL [facility]: [address] 0 [facility] Normal Blood Urea Nitrogen 16 mg/dL 7-18 mg /dL [facility]: [address] [facility] Normal Creatinine for GFR 0.77 mg/dL 0.55-1 .30 mg/dL [facility]: [address] [facility] Normal Glomerular Filtration Rate > 60.0 >5 8 [facility]: [address] [facility] Normal Sodium Level 141 mEq/L 136-145 mEq/L [facility]: [address] [facility] Normal Potassium Serum 3.8 mEq/L 3.5-5.1 mE q/L [facility]: [address] [facility] Normal Chloride Level 105 mEq/L 98-107 mEq/ L [facility]: [address] [facility] High Carbon Dioxide Level 33 mEq/L 21-32 mEq/L [facility]: [address] [facility] Low Anion Gap 3 mEq/L 8-16 mEq/L [facility]: [address] [facility] Normal Calcium Level 9.4 mg/dL 8.5-10.1 mg/ dL [facility]: [address] [facility] Normal AST/SGOT 12 U/L 7-37 U/L [facility]: [address] [facility] Normal ALT/SGPT 28 U/L 12-78 U/L [facility]: [address] [facility] Normal Alkaline Phosphatase 112 U/L 45-117 U/L [facility]: [address] [facility] High Bilirubin,total 1.1 mg/dL 0.2-1.0 mg /dL [facility]: [address] [facility] Normal Total Protein 7.6 gm/dL 6.4-8.2 gm/d L [facility]: [address] [facility] Normal Albumin 4.0 gm/dL 3.2-5.2 gm/dL Supriya l [facility]: [address] [facility] Low Albumin/globulin Ratio 1.1 1.2-2. 2 [facility]: [address] [facility] 07/30/2020 Lipid Panel, Blood Normal Triglycerides Lev el 63 mg/dL <150 mg/dL [facility]: 83 0 [facility] Normal Cholesterol Level 156 mg/dL <200 mg/ dL [facility]: [address] [facility] Normal HDL Cholesterol 68 mg/dL >40 mg/dL F onamial [facility]: [address] [facility] Normal LDL Cholesterol 75 mg/dL <100 mg/dL [facility]: [address] [facility] Normal Non-hdl-c 88 mg/dL [facility]: [address] [facility] Normal Cholesterol Risk Ratio 2.294 <5 [facility]: [address] [facility] 07/30/2020 TSH, Serum or Plasma Normal Thyroid Stimulating Hormone 3.690 uIU/mL 0.358-3.740 uIU/mL [facility] nter: [address] [facility] Past Encounters 06/14/2021 Type II Diabetes Mellitus Uncontrolled; Abdominal Pain; Bilateral Knee Pain; Body Mass Index 40+ - Severely Obese; Acute Urinary Tract Infection Bridgette Cao, [employer]: [address] [place] [address], Ph. 04/20/2021 Type II Diabetes Mellitus Uncontrolled; Low Income; Patient Asked to Attend; Edema of Lower Extremity; Body Mass Index 40+ - Severely Obese [facility] [address] [place] [address], Ph. 03/31/2021 Severe Obesity; Type II Diabetes Mellitus Uncontrolled; Cough; Candidiasis of Vagina; Body Mass Index 40+ - Severely Obese Bridgette Cao [facility]: [address] [place] [address], Ph. 10/20/2020 Upper Respiratory Infection Lore Brizuela [facility]: [address] [place] [address], Ph. 07/30/2020 Adult Health Examination Lore Brizuela [facility]: [address] [place] [address], Ph. Social History Tobacco Smoking Status Never [...] Surgeries None recorded. Imaging None recorded. Vitals 06/14/2021 09:20AM ESTABLISHED [id number] Height Weight BMI Blood Pressure 67 in 295 lbs 16 oz 46.4 kg/m2 125/82 mm[Hg] 04/20/2021 10:40AM ANNUAL EXAM Height Weight BMI Blood Pressure 67 in 298 lbs 6 oz 46.7 kg/m2 130/86 mm[Hg] 03/31/2021 03:00PM ESTABLISHED [id number] Height Weight BMI Blood Pressure 67 in 293 lbs 8 oz 46 kg/m2 118/77 mm[Hg] 10/20/2020 01:00PM ESTABLISHED [id number] Height Weight BMI Blood Pressure 67 in [...]
--- OUTSIDE RECORDS SUMMARY | 2021-07-07 13:16 | CCD ---
Author Author [facility] Organization [facility] Address Unknown Phone Unavailable Care Team Providers Care Intellectual Property Counsel Name Role Phone SotoTali Unavailable PROBLEMS Type Condition ICD9-CM Code [id number] Code Onset Dates Condition S tatus W/U Status Risk SNOMED Code Notes Problem Uterine fibroid 218.9 Active confirmed 9531 5005 Problem Spotting N92.0 Active confirmed 4761435 Problem Excessive or frequent menstruation 626.2 Activ e confirmed 961520498 Problem Mastodynia 611.71 Active confirmed 32392004 Problem Abdominal distension, gaseous 787.3 Active confirm ed 302727287 ALLERGIES Allergen (clinical drug ingredient) Drug/Non Drug Allergy do cumented on EMR Reaction Allergy Type Onset Date Status clindamycin Clindamycin HCl([facility] Code:[address]-04) unknown Drug A llergy Active Sulfa (for allergy use only) Rash Drug Allergy Active loperamide Imodium A-D(ND Code:[address]-59) Rash Drug Allerg y Active ENCOUNTERS from 1972 to 2021-05-11 Encounter Location Date Provider Diagnosis [facility] [phone] [place] [address] Apr, Tali Soto Spotting N92.0 IMMUNIZATIONS No Information SOCIAL HISTORY Tobacco Use: Social History Observation Description Date Details (start date - stop date) Never Smoker Sex Assigned At : Social History Observation Description Sex Assigned At Unknown Education: Question Answer Notes Level of Education: High School Language: Question Answer Notes Languages spoken: Samoan Caodaism: Question Answer Notes Caodaism 33 None Alcohol Screening: Question Answer Notes [...] a day for 30 day(s) Active Nystatin 860468 UNIT/GM 1 application Externally Twice a day for 14 Active Latuda _ 1 tab,20mg orally bid Not -Taking Admelog 100 UNIT/ML as directed Subcutaneous Active PROCEDURES No Information RESULTS Component Value Reference Range HCG SERUM QUALITATIVE Reviewed date:05/10/2021 16:33:35 Interpretation: Performing Lab:[facility], [facility] [address] [facility] [id number] , ,[place] [address] HCG, SERUM QUALITATIVE NEGATIVE NEGATIVE REASON FOR VISIT ? MEDICAL (GENERAL) HISTORY Type Description Date Medical History hypertension Medical History Esophageal reflux Medical History IBS Medical History endometriosis Medical History type II diabetes Medical History abnormal pap smear,[id number]. Medical History cataracts/deacon. Surgical History C section Surgical History laparoscopy Surgical History D&C, post misc. Surgical History left breast biopsy/benign/with a clip ,11/24 Surgical History colonoscopy 2004 Surgical History cataract removal/right eye, then left ey e 01/04/11 Surgical History carpal tunnel release/right 2010 Surgical History tear duct plugs 04/2013 Surgical History D&C, hysteroscopy,polypectomy, endometr ial ablation 02/2014 Hospitalization History pancreatitis 05/28/14 Hospitalization History [facility] 2019 Goals Section No Information Health Concerns No Information MEDICAL EQUIPMENT No Information MENTAL STATUS No Information FUNCTIONAL STATUS No Information ASSESSMENTS Encounter Date Diagnosis Assessment Notes Treatment Notes Treatm ent Clinical Notes Apr, Spotting (ICD-10 - N92.0) PLAN OF TREATMENT Medication Medication Name Sig Start Date Stop Date Nystatin 484222 UNIT/GM 1 application Externally Twice a day for 14 Diflucan 150 MG 1 tablet Orally once a week for 21 day(s) Feb Insurance Providers Payer Name Payer Address Payer Phone Insured Name Patient Relati onship to Insured Coverage Start Date Coverage End Date [facility] [address] [facility] [id number] SUZE DOWNEY self
--- OUTSIDE RECORDS SUMMARY | 2021-07-07 13:18 | CCD ---
Author Organization Unknown Address [address] [place] [address] Phone [phone] Care Team Providers Care Antitank Assault Gunner Name Role Phone [facility] [phone] [facility] [phone] RONAN YATES MD [phone] Allergies Code Code System Name Reaction Severity Status Onset Sulfa (Sulfonamide Antibiotics) Deactivated 10/18 73829 RxNorm Lisinopril Active 04/18/2017 Clindamycin Hcl Active [...] 500 mg tablet Active Not avail able [id number] 3.5 mg/mL-10,000 unit/mL- 1 % ear solution [...] Blood C ount 8.0 10 4.0-10.0 10 [facility]: [address] [facility] Blood venous Normal Red Blood Count 4.90 10 4.00- 5.40 10 [facility]: [address] [facility] Blood venous Normal Hemoglobin 13.9 g/dL 12.0-15. 5 g/dL [facility]: [address] [facility] Blood venous Normal Hematocrit 43.0 % 36.0-47.0 % [facility]: [address] [facility] Blood venous Normal Mean Corpuscular Volume 87.8 fL 80.0-96.0 fL [facility]: [address] [place] [address] Blood venous Normal Mean Corpuscular Hemoglob in 28.4 pg 27.0-33.0 pg [facility]: [address] [facility] Blood venous Normal Mean Corpuscular HGB Conc 32.3 g/dL 32.0-36.5 g/dL [facility]: [address] [facility] Blood venous Normal Red Cell Distribution Wid th 12.6 % 11.5-14.5 % [facility]: [address] [facility] Blood venous Normal Platelet Count, Automated 311 10 150-450 10 [facility]: [address] [facility] Blood venous Normal Neutrophils % 52.2 % 36.0-66. 0 % [facility]: [address] [facility] Blood venous Normal Lymph % 36.3 % 24.0-44.0 % [facility]: [address] [facility] Blood venous Normal [place] % 7.7 % 2.0-8.0 % [facility]: [address] [place] [address] Blood venous Normal Eos % 2.7 % 0.0-3.0 % [facility]: [address] [place] [address] Blood venous Normal Baso % 0.7 % 0.0-1.0 % [facility]: [address] [place] [address] Blood venous Normal Immature Granulocyte % 0.4 % 0-3.0 % [facility]: [address] [place] [address] Blood venous Normal Nucleated Red Blood Cell % 0. 0 % 0-0 % [facility]: [address] [place] [address] Blood venous Normal Neutrophils # 4.2 10 1.5-8.5 10 [facility]: [address] [place] [address] Blood venous Normal Lymph # 2.9 10 1.5-5.0 10 [facility]: [address] [place] [address] Blood venous Normal [place] # 0.6 10 0.0-0.8 10 [facility]: [address] [place] [address] Blood venous Normal Eos # 0.2 10 0.0-0.5 10 [facility]: [address] [place] [address] Blood venous Normal Baso # 0.1 10 0.0-0.2 10 [facility]: [address] [place] [address] 03/31/2021 HbA1C (Hemoglobin a1C), Blood Blood venous Normal Hemoglobin a1C 9.3 % [facility]: [address] [place] [address] Blood venous High Estimated Average Glucose 220 mg/dL 60-110 mg/dL [facility]: [address] [place] [address] 03/31/2021 Urinalysis Manual Normal Appearance, Urine Manual clear clear [facility]: [address] [place] [address] Normal Color, Urine Manual yellow yellow Fi nal [facility]: [address] [place] [address] Normal pH,urine Man 5.5 units 5.0 - 7.0 uni ts [facility]: [address] [place] [address] High Specific Blairs,urine Manual 1.037 1.002-1.035 [facility]: 0 [facility] Normal Protein, Urine Manual negative mg/dL negative mg/dL [facility]: [address] [place] [address] High Glucose, Urine (UA) Manual 4+( 1000 mg/dL) mg/dL negative mg/dL [facility]: [address] [place] [address] Normal Ketone, Urine Manual negative mg/dL negative mg/dL [facility]: [address] [place] [address] Normal Urobilinogen, Urine Manual normal mg /dL normal mg/dL [facility]: [address] [place] [address] Normal Bilirubin, Urine Manual negative neg ative [facility]: [address] [place] [address] Normal Nitrite, Urine Manual negative negat akosua [facility]: [address] [place] [address] Normal Leukocyte Esterase, Urine Man negati ve negative [facility]: [address] [place] [address] Normal Blood Urine Manual negative negative [facility]: [address] [place] [address] 03/31/2021 CMP, Serum or Plasma Blood venous High Glu cose, Fasting 174 mg/dL 70-100 mg/dL [facility] nter: [address] [place] [address] Blood venous Normal Blood Urea Nitrogen 11 mg/dL 7-18 mg/dL [facility]: [address] [place] [address] Blood venous Normal Creatinine for GFR 0.60 mg/dL 0.55-1.30 mg/dL [facility]: [address] [place] [address] Blood venous Normal Glomerular Filtration Rate > 60.0 >58 [facility]: [address] [place] [address] Blood venous Normal Sodium Level 141 mEq/L 136-14 5 mEq/L [facility]: [address] [place] [address] Blood venous Normal Potassium Serum 4.2 mEq/L 3.5 -5.1 mEq/L [facility]: [address] [place] [address] Blood venous High Chloride Level 108 mEq/L 98-1 07 mEq/L [facility]: [address] [place], [place] [address] Blood venous Normal Carbon Dioxide Level 27 mEq/L 21-32 mEq/L [facility]: [address] [facility] Blood venous Low Anion Gap 6 mEq/L 8-16 mEq/L [facility]: [address] [facility] Blood venous Normal Calcium Level 9.6 mg/dL 8.5-1 0.1 mg/dL [facility]: [address] [facility] Blood venous High AST/SGOT 55 U/L 7-37 U/L [facility]: [address] [place] [address] Blood venous High ALT/SGPT 95 U/L 12-78 U/L [facility]: [address] [facility] Blood venous Normal Alkaline Phosphatase 117 U/L 45-117 U/L [facility]: [address] [place] [address] Blood venous Normal Bilirubin,total 0.6 mg/dL 0.2 -1.0 mg/dL [facility]: [address] [facility] Blood venous Normal Total Protein 7.1 gm/dL 6.4-8 .2 gm/dL [facility]: [address] [place] [address] Blood venous Normal Albumin 3.5 gm/dL 3.2-5.2 gm/ dL [facility]: [address] [place] [address] Blood venous Low Albumin/globulin Ratio 1.0 1.2-2.2 [facility]: [address] [place] [address] 03/31/2021 Lipid Panel, Blood Blood venous Normal Trigl ycerides Level 103 mg/dL <150 mg/dL [facility] nter: [address] [facility] Blood venous Normal Cholesterol Level 147 mg/dL < 200 mg/dL [facility]: 0 [facility] Blood venous Normal HDL Cholesterol 43 mg/dL >40 mg/dL [facility]: 0 [facility] Blood venous Normal LDL Cholesterol 83 mg/dL <100 mg/dL [facility]: 0 [facility] Blood venous Normal Non-hdl-c 104 mg/dL [facility]: [address] [facility] Blood venous Normal Cholesterol Risk Ratio 3.418 <5 [facility]: [address] [facility] 03/31/2021 Urinalysis Manual Normal Appearance, Urine Manual clear clear [facility]: [address] [facility] Normal Color, Urine Manual yellow yellow Fi [facility]: [address] [facility] Normal pH,urine Man 5.5 units 5.0 - 7.0 uni ts [facility]: [address] [facility] High Specific Blairs,urine Manual 1.037 1.002-1.035 [facility]: [address] [facility] Normal Protein, Urine Manual negative mg/dL negative mg/dL [facility]: 0 [facility] High Glucose, Urine (UA) Manual 4+( 1000 mg/dL) mg/dL negative mg/dL [facility]: [address] [facility] Normal Ketone, Urine Manual negative mg/dL negative mg/dL [facility]: [address] [facility] Normal Urobilinogen, Urine Manual normal mg /dL normal mg/dL [facility]: [address] [facility] Normal Bilirubin, Urine Manual negative neg ative [facility]: [address] [facility] Normal Nitrite, Urine Manual negative negat akosua [facility]: [address] [facility] Normal Leukocyte Esterase, Urine Man negati ve negative [facility]: [address] [facility] Normal Blood Urine Manual negative negative [facility]: [address] [facility] 03/31/2021 Culture, Urine URINE,CLEAN CATCH No observation recorded. [facility]: [address] [facility] 03/31/2021 Hemoglobin a1C, Fingerstick Off-scale High Hba1 C [facility]: [address] [place] [address] 03/31/2021 Glucose, Fingerstick, Blood Blood Glucos e: mg/dl 183 [facility]: [address] [place] [address] 03/10/2021 Ctni Istat Normal Istat Troponin 0.00 NG/m L 0.00-0.08 NG/mL [facility]: 0 [facility] 03/10/2021 HbA1C (Hemoglobin a1C), Blood Normal Hemogl obin a1C 9.4 % [facility]: 0 [facility] High Estimated Average Glucose 223 mg/dL 60-110 mg/dL [facility]: 0 [facility] 03/10/2021 Hepatic Function Panel, Serum High AST/SG OT 117 U/L 7-37 U/L [facility]: [address] [place] [address] High ALT/SGPT 140 U/L 12-78 U/L [facility]: 0 [facility] Normal Alkaline Phosphatase 116 U/L 45-117 U/L [facility]: 0 [facility] Normal Bilirubin,total 1.0 mg/dL 0.2-1.0 mg /dL [facility]: 0 [facility] High Bilirubin,direct 0.3 mg/dL 0.0-0.2 m g/dL [facility]: [address] [place] [address] Normal Total Protein 7.2 gm/dL 6.4-8.2 gm/d L [facility]: [address] [place] [address] Normal Albumin 3.5 gm/dL 3.2-5.2 gm/dL Supriya l [facility]: [address] [place] [address] Low Albumin/globulin Ratio 0.9 1.2-2. 2 [facility]: 0 [facility] 03/10/2021 BMP, Serum or Plasma High Glucose, Fastin g 174 mg/dL 70-100 mg/dL [facility]: [address] [facility] Normal Blood Urea Nitrogen 12 mg/dL 7-18 mg /dL [facility]: 0 [facility] Normal Creatinine for GFR 0.63 mg/dL 0.55-1 .30 mg/dL [facility]: [address] [place] [address] Normal Glomerular Filtration Rate > 60.0 >5 8 [facility]: [address] [place] [address] Normal Sodium Level 141 mEq/L 136-145 mEq/L [facility]: [address] [place] [address] Normal Potassium Serum 3.7 mEq/L 3.5-5.1 mE q/L [facility]: [address] [place] [address] High Chloride Level 108 mEq/L 98-107 mEq/ L [facility]: [address] [place] [address] Normal Carbon Dioxide Level 28 mEq/L 21-32 mEq/L [facility]: [address] [place] [address] Low Anion Gap 5 mEq/L 8-16 mEq/L [facility]: [address] [place] [address] Normal Calcium Level 9.5 mg/dL 8.5-10.1 mg/ dL [facility]: [address] [place] [address] 03/10/2021 Lipase, Serum or Plasma Normal Lipase 96 U/L 7 3-393 U/L [facility]: [address] [place] [address] 03/10/2021 TSH, Serum or Plasma Blood venous Normal Thyroid Stimulating Hormone 1.740 uIU/mL 0.358-3.740 uIU/mL [facility]: [address] [place] [address] 03/10/2021 CBC W/ Auto Diff Normal White Blood Count 7.3 10 4.0-10.0 10 [facility]: [address] [place] [address] Normal Red Blood Count 5.21 10 4.00-5.40 10 [facility]: [address] [place] [address] Normal Hemoglobin 15.1 g/dL 12.0-15.5 g/dL [facility]: [address] [place] [address] Normal Hematocrit 44.8 % 36.0-47.0 % [facility]: [address] [place] [address] Normal Mean Corpuscular Volume 86.0 fL 80.0 -96.0 fL [facility]: [address] [place] [address] Normal Mean Corpuscular Hemoglobin 29.0 pg 27.0-33.0 pg [facility]: [address] [facility] Normal Mean Corpuscular HGB Conc 33.7 g/dL 32.0-36.5 g/dL [facility]: [address] [facility] Normal Red Cell Distribution Width 12.5 % 1 1.5-14.5 % [facility]: [address] [facility] Normal Platelet Count, Automated 296 10 150 -450 10 [facility]: [address] [facility] Normal Nucleated Red Blood Cell % 0.0 % 0- 0 % [facility]: [address] [facility] 03/10/2021 Differential Panel, Blood Normal Neutrophil s 59 % 28-66 % [facility]: 0 [facility] Normal Lymphocytes 27 % 16-44 % [facility]: [address] [facility] High Monocytes 9 % 0-5 % [facility]: [address] [facility] Normal Atypical Lymph 5 % 0-5 % [facility]: [address] [facility] 03/10/2021 Platelet Count, Estimate, Blood Normal Platelet Estimate normal normal [facility] nter: 0 [facility] 10/20/2020 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), QL, edge drummer-PCR, 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 Nasopharyngeal Normal Sars Cov 2 RNA not detected not detected Fi nal [facility] ([facility] [place]): [address] 07/30/2020 HbA1C (Hemoglobin a1C), Blood Normal Hemogl obin a1C 6.6 % [facility]: [address] [facility] High Estimated Average Glucose 143 mg/dL 60-110 mg/dL [facility]: [address] [facility] 07/30/2020 CMP, Serum or Plasma High Glucose, Fastin g 131 mg/dL 70-100 mg/dL [facility]: [address] [facility] Normal Blood Urea Nitrogen 16 mg/dL 7-18 mg /dL [facility]: [address] [facility] Normal Creatinine for GFR 0.77 mg/dL 0.55-1 .30 mg/dL [facility]: [address] [facility] Normal Glomerular Filtration Rate > 60.0 >5 8 [facility]: [address] [facility] Normal Sodium Level 141 mEq/L 136-145 mEq/L [facility]: [address] [facility] Normal Potassium Serum 3.8 mEq/L 3.5-5.1 mE q/L [facility]: [address] [facility] Normal Chloride Level 105 mEq/L 98-107 mEq/ L [facility]: [address] [facility] High Carbon Dioxide Level 33 mEq/L 21-32 mEq/L [facility]: [address] [facility] Low Anion Gap 3 mEq/L 8-16 mEq/L [facility]: [address] [facility] Normal Calcium Level 9.4 mg/dL 8.5-10.1 mg/ dL [facility]: [address] [facility] Normal AST/SGOT 12 U/L 7-37 U/L [facility]: [address] [facility] Normal ALT/SGPT 28 U/L 12-78 U/L [facility]: [address] [facility] Normal Alkaline Phosphatase 112 U/L 45-117 U/L [facility]: [address] [facility] High Bilirubin,total 1.1 mg/dL 0.2-1.0 mg /dL [facility]: [address] [facility] Normal Total Protein 7.6 gm/dL 6.4-8.2 gm/d L [facility]: [address] [facility] Normal Albumin 4.0 gm/dL 3.2-5.2 gm/dL [facility]: [address] [facility] Low Albumin/globulin Ratio 1.1 1.2-2. 2 [facility]: [address] [facility] 07/30/2020 Lipid Panel, Blood Normal Triglycerides Lev el 63 mg/dL <150 mg/dL [facility]: [address] [facility] Normal Cholesterol Level 156 mg/dL <200 mg/ dL Final [facility]: [address] [facility] Normal HDL Cholesterol 68 mg/dL >40 mg/dL F inal [facility]: [address] [facility] Normal LDL Cholesterol 75 mg/dL <100 mg/dL Final [facility]: [address] [facility] Normal Non-hdl-c 88 mg/dL Final [facility]: [address] [facility] Normal Cholesterol Risk Ratio 2.294 <5 Final [facility]: [address] [facility] 07/30/2020 TSH, Serum or Plasma Normal Thyroid Stimulating Hormone 3.690 uIU/mL 0.358-3.740 uIU/mL [facility] nter: [address] [facility] Past Encounters 04/20/2021 Type II Diabetes Mellitus Uncontrolled; Low Income; Patient Asked to Attend; Edema of Lower Extremity; Body Mass Index 40+ - Severely Obese Bridgette Nash [facility] [address] [place] [id number], Ph. 03/31/2021 Severe Obesity; Type II Diabetes Mellitus Uncontrolled; Cough; Candidiasis of Vagina; Body Mass Index 40+ - Severely Obese TIMO Lacey: [address] [place] [address], Ph. 10/20/2020 Upper Respiratory Infection ESVIN Laureano: [address] [place] [address], Ph. 07/30/2020 Adult Health Examination ESVIN Laureano: [address] [place] [address], Ph. Social History Tobacco Smoking Status Never [...] 46.7 kg/m2 130/86 mm[Hg] 03/31/2021 03:00PM ESTABLISHED [id number] Height Weight BMI Blood Pressure 67 in 293 lbs 8 oz 46 kg/m2 118/77 mm[Hg] 10/20/2020 01:00PM ESTABLISHED [id number] Height Weight BMI Blood Pressure 67 in [...]
--- OUTSIDE RECORDS SUMMARY | 2021-07-07 13:20 | CCD ---
Author Author [facility] Organization [facility] Address Unknown Phone Unavailable Care Team Providers Care Building Maintenance Technician Name Role Phone Gelacio E Lore CARPENTER REPAIRER Unavailable Unavailable Brizuela, E Lore CARPENTER REPAIRER Unavailable Unavailable Brizuela, E Lore CARPENTER REPAIRER Unavailable Unavailable Brizuela, E Lore CARPENTER REPAIRER Unavailable Unavailable Brizuela, E Lore CARPENTER REPAIRER Unavailable Unavailable Brizuela, E Lore CARPENTER REPAIRER Unavailable Unavailable Brizuela, E Lore CARPENTER REPAIRER Unavailable Unavailable Brizuela, E Lore CARPENTER REPAIRER Unavailable Unavailable Brizuela, E Lore CARPENTER REPAIRER Unavailable Unavailable Brizuela, E Lore CARPENTER REPAIRER Unavailable Unavailable Brizuela, E Lore CARPENTER REPAIRER Unavailable Unavailable Brizuela, E Lore CARPENTER REPAIRER Unavailable Unavailable Brizuela, E Lore CARPENTER REPAIRER Unavailable Unavailable Brizuela, E Lore CARPENTER REPAIRER Unavailable Unavailable Brizuela, E Lore CARPENTER REPAIRER Unavailable Unavailable Brizuela, E Lore CARPENTER REPAIRER Unavailable Unavailable Brizuela, E Lore CARPENTER REPAIRER Unavailable Unavailable Brizuela, E Lore CARPENTER REPAIRER Unavailable Unavailable Brizuela, E Lore CARPENTER REPAIRER Unavailable Unavailable Brizuela, E Lore CARPENTER REPAIRER Unavailable Unavailable Brizuela, E Lore CARPENTER REPAIRER Unavailable Unavailable Brizuela, E Lore CARPENTER REPAIRER Unavailable Unavailable Brizuela, E Lore CARPENTER REPAIRER Unavailable Unavailable Mollison, Wicho Oneill MD Unavailable Unavailable Mollison, Wicho Oneill MD Unavailable Unavailable Mollison, Wicho Oneill MD Unavailable Unavailable Mollison, Wicho Oneill MD Unavailable Unavailable Mollison, Wicho Oneill MD Unavailable Unavailable Mollison, Wicho Oneill MD Unavailable Unavailable Mollison, Wicho Oneill MD Unavailable Unavailable Mollison, Wicho Oneill MD Unavailable Unavailable Mollison, Wicho Oneill MD Unavailable Unavailable Mollison, Wicho Oneill MD Unavailable Unavailable Mollison, Wicho Oneill MD Unavailable Unavailable Mollison, Wicho Oneill MD Unavailable Unavailable Mollison, Wicho Oneill MD Unavailable Unavailable Mollison, Wicho Oneill MD Unavailable Unavailable Mollison, Wicho Oneill MD Unavailable Unavailable Mollison, Wicho Oneill MD Unavailable Unavailable Mollison, Wicho Oneill MD Unavailable Unavailable Mollison, Wicho Oneill MD Unavailable Unavailable Mollison, Wicho Oneill MD Unavailable Unavailable Mollison, Wicho Oneill MD Unavailable Unavailable Mollison, Wicho Oneill MD Unavailable Unavailable Mollison, Wicho Oneill MD Unavailable Unavailable Mollison, Wicho Oneill MD Unavailable Unavailable Mollison, Wicho Oneill MD Unavailable Unavailable Mollison, Wicho Oneill MD Unavailable Unavailable Mollison, Wicho Oneill MD Unavailable Unavailable Mollison, Wicho Oneill MD Unavailable Unavailable Mollison, Wicho Oneill MD Unavailable Unavailable Mollison, Wicho Oneill MD Unavailable Unavailable Mollison, Wicho Oneill MD Unavailable Unavailable MARCELA, B ARI CARPENTER REPAIRER Unavailable Unavailable MARCELA, B ARI CARPENTER REPAIRER Unavailable Unavailable MARCELA, B ARI CARPENTER REPAIRER Unavailable Unavailable MARCELA, B ARI CARPENTER REPAIRER Unavailable Unavailable MARCELA, B ARI CARPENTER REPAIRER Unavailable Unavailable MARCELA, B ARI CARPENTER REPAIRER Unavailable Unavailable MARCELA, B ARI CARPENTER REPAIRER Unavailable Unavailable MARCELA, B ARI CARPENTER REPAIRER Unavailable Unavailable MARCELA, B ARI CARPENTER REPAIRER Unavailable Unavailable MARCELA, B ARI CARPENTER REPAIRER Unavailable Unavailable MARCELA, B ARI CARPENTER REPAIRER Unavailable Unavailable MARCELA, B ARI CARPENTER REPAIRER Unavailable Unavailable MARCELA, B ARI CARPENTER REPAIRER Unavailable Unavailable MARCELA, B ARI CARPENTER REPAIRER Unavailable Unavailable MARCELA, B ARI CARPENTER REPAIRER Unavailable Unavailable MARCELA, B ARI CARPENTER REPAIRER Unavailable Unavailable MARCELA, B ARI CARPENTER REPAIRER Unavailable Unavailable MARCELA, B ARI CARPENTER REPAIRER Unavailable Unavailable MARCELA, B ARI CARPENTER REPAIRER Unavailable Unavailable MARCELA, B ARI CARPENTER REPAIRER Unavailable Unavailable MARCELA, B ARI CARPENTER REPAIRER Unavailable Unavailable MARCELA, B ARI CARPENTER REPAIRER Unavailable Unavailable MARCELA, B ARI CARPENTER REPAIRER Unavailable Unavailable MARCELA, B ARI CARPENTER REPAIRER Unavailable Unavailable MARCELA, B ARI CARPENTER REPAIRER Unavailable Unavailable MARCELA, B ARI CARPENTER REPAIRER Unavailable Unavailable MARCELA, B ARI CARPENTER REPAIRER Unavailable Unavailable MARCELA, B ARI CARPENTER REPAIRER Unavailable Unavailable MARCELA, B ARI CARPENTER REPAIRER Unavailable Unavailable MARCELA, B ARI CARPENTER REPAIRER Unavailable Unavailable MARCELA, B ARI CARPENTER REPAIRER Unavailable Unavailable MARCELA, B ARI CARPENTER REPAIRER Unavailable Unavailable MARCELA, B ARI CARPENTER REPAIRER Unavailable Unavailable MARCELA, B ARI CARPENTER REPAIRER Unavailable Unavailable MARCELA, B ARI CARPENTER REPAIRER Unavailable Unavailable MARCELA, B ARI CARPENTER REPAIRER Unavailable Unavailable MARCELA, B ARI CARPENTER REPAIRER Unavailable Unavailable MARCELA, B ARI CARPENTER REPAIRER Unavailable Unavailable MARCELA, B ARI CARPENTER REPAIRER Unavailable Unavailable MARCELA, B ARI CARPENTER REPAIRER Unavailable Unavailable MARCELA, B ARI CARPENTER REPAIRER Unavailable Unavailable MARCELA, B ARI CARPENTER REPAIRER Unavailable Unavailable MARCELA, B ARI CARPENTER REPAIRER Unavailable Unavailable MARCELA, B ARI CARPENTER REPAIRER Unavailable Unavailable MARCELA, B ARI CARPENTER REPAIRER Unavailable Unavailable MARCELA, B ARI CARPENTER REPAIRER Unavailable Unavailable MARCELA, B ARI CARPENTER REPAIRER Unavailable Unavailable MARCELA, B ARI CARPENTER REPAIRER Unavailable Unavailable MARCELA, B ARI CARPENTER REPAIRER Unavailable Unavailable MARCELA, B ARI CARPENTER REPAIRER Unavailable Unavailable MARCELA, B ARI CARPENTER REPAIRER Unavailable Unavailable MARCELA, B ARI CARPENTER REPAIRER Unavailable Unavailable MARCELA, B ARI CARPENTER REPAIRER Unavailable Unavailable MARCELA, B ARI CARPENTER REPAIRER Unavailable Unavailable MARCELA, B ARI CARPENTER REPAIRER Unavailable Unavailable MARCELA, B ARI CARPENTER REPAIRER Unavailable Unavailable MARCELA, B ARI CARPENTER REPAIRER Unavailable Unavailable MARCELA, B ARI CARPENTER REPAIRER Unavailable Unavailable MARCELA, B ARI CARPENTER REPAIRER Unavailable Unavailable MARCELA, B ARI CARPENTER REPAIRER Unavailable Unavailable MARCELA, B ARI CARPENTER REPAIRER Unavailable Unavailable MARCELA, B ARI CARPENTER REPAIRER Unavailable Unavailable Nash, A Bridgette LEGAL FILE CLERK Unavailable Unavailable Stapleton, A Bridgette LEGAL FILE CLERK Unavailable Unavailable Stapleton, A Bridgette LEGAL FILE CLERK Unavailable Unavailable Stapleton, A Bridgette LEGAL FILE CLERK Unavailable Unavailable Stapleton, A Bridgette LEGAL FILE CLERK Unavailable Unavailable Stapleton, A Bridgette LEGAL FILE CLERK Unavailable Unavailable Stapleton, A Bridgette LEGAL FILE CLERK Unavailable Unavailable Stapleton, A Bridgette LEGAL FILE CLERK Unavailable Unavailable Stapleton, A Bridgette LEGAL FILE CLERK Unavailable Unavailable Stapleton, A Bridgette LEGAL FILE CLERK Unavailable Unavailable Stapleton, A Bridgette LEGAL FILE CLERK Unavailable Unavailable Stapleton, A Bridgette LEGAL FILE CLERK Unavailable Unavailable Stapleton, A Bridgette LEGAL FILE CLERK Unavailable Unavailable Stapleton, A Bridgette LEGAL FILE CLERK Unavailable Unavailable Stapleton, A Bridgette LEGAL FILE CLERK Unavailable Unavailable Stapleton, A Bridgette LEGAL FILE CLERK Unavailable Unavailable Stapleton, A Bridgette LEGAL FILE CLERK Unavailable Unavailable Stapleton, A Bridgette LEGAL FILE CLERK Unavailable Unavailable Stapleton, A Bridgette LEGAL FILE CLERK Unavailable Unavailable Stapleton, A Bridgette LEGAL FILE CLERK Unavailable Unavailable Stapleton, A Bridgette LEGAL FILE CLERK Unavailable [facility], A Bridgette LEGAL FILE CLERK Unavailable [facility], A Bridgette LEGAL FILE CLERK Unavailable Unavailable Stapleton, A Bridgette LEGAL FILE CLERK Unavailable Unavailable Stapleton, A Bridgette LEGAL FILE CLERK Unavailable Unavailable Stapleton, A Bridgette LEGAL FILE CLERK Unavailable [facility], A Bridgette LEGAL FILE CLERK Unavailable [facility], A Bridgette LEGAL FILE CLERK Unavailable Unavailable Stapleton, A Bridgette LEGAL FILE CLERK Unavailable Unavailable Stapleton, A Bridgette LEGAL FILE CLERK Unavailable Unavailable Stapleton, A Bridgette LEGAL FILE CLERK Unavailable Unavailable MAJAK, R RONAN DPM Unavailable Unavailable MAJAK, R RONAN DPM Unavailable Unavailable MAJAK, R RONAN DPM Unavailable Unavailable MAJAK, R RONAN DPM Unavailable Unavailable MAJAK, R RONAN DPM Unavailable Unavailable MAJAK, R RONAN DPM Unavailable Unavailable MAJAK, R RONAN DPM Unavailable Unavailable MAJAK, R RONAN DPM Unavailable Unavailable MAJAK, R RONAN DPM Unavailable Unavailable MAJAK, R RONAN DPM Unavailable Unavailable MAJAK, R RONAN DPM Unavailable Unavailable MAJAK, R RONAN DPM Unavailable Unavailable MAJAK, R RONAN DPM Unavailable Unavailable MAJAK, R RONAN DPM Unavailable Unavailable MAJAK, R RONAN DPM Unavailable Unavailable MAJAK, R RONAN DPM Unavailable Unavailable MAJAK, R RONAN DPM Unavailable Unavailable MAJAK, R RONAN DPM Unavailable Unavailable MAJAK, R RONAN DPM Unavailable Unavailable MAJAK, R RONAN DPM Unavailable Unavailable MAJAK, R RONAN DPM Unavailable Unavailable MAJAK, R RONAN DPM Unavailable Unavailable MAJAK, R RONAN DPM Unavailable Unavailable MAJAK, R RONAN DPM Unavailable Unavailable MAJAK, R RONAN DPM Unavailable Unavailable MAJAK, R RONAN DPM Unavailable Unavailable MAJAK, R RONAN DPM Unavailable Unavailable MAJAK, R RONAN DPM Unavailable Unavailable MAJAK, R RONAN DPM Unavailable Unavailable MAJAK, R RONAN DPM Unavailable Unavailable MAJAK, R RONAN DPM Unavailable Unavailable Cliff Weller MD Unavailable Unavailable Cliff Weller MD Unavailable Unavailable Cliff Weller MD Unavailable Unavailable Cliff Weller MD Unavailable Unavailable Cliff Weller MD Unavailable Unavailable Cliff Weller MD Unavailable Unavailable Cliff Weller MD Unavailable Unavailable Cliff Weller MD Unavailable Unavailable Cliff Weller MD Unavailable Unavailable Cliff Weller MD Unavailable Unavailable Cliff Weller MD Unavailable Unavailable Cliff Weller MD Unavailable Unavailable Cliff Weller MD Unavailable Unavailable Cliff Weller MD Unavailable Unavailable Cliff Weller MD Unavailable Unavailable Cliff Weller MD Unavailable Unavailable Cliff Weller MD Unavailable Unavailable Cliff Weller MD Unavailable Unavailable Cliff Weller MD Unavailable Unavailable Cliff Weller MD Unavailable Unavailable Cliff Weller MD Unavailable Unavailable Cliff Weller MD Unavailable Unavailable Cliff Weller MD Unavailable Unavailable Cliff Weller MD Unavailable Unavailable Cliff Weller MD Unavailable Unavailable Cliff Weller MD Unavailable Unavailable Cliff Weller MD Unavailable Unavailable Cliff Weller MD Unavailable Unavailable Cliff Weller MD Unavailable Unavailable Cliff Weller MD Unavailable Unavailable Cliff Weller MD Unavailable Unavailable Cliff Weller MD Unavailable Unavailable Cliff Weller MD Unavailable Unavailable Cliff Weller MD Unavailable Unavailable Cliff Weller MD Unavailable Unavailable Cliff Weller MD Unavailable Unavailable Cliff Weller MD Unavailable Unavailable Cliff Weller MD Unavailable Unavailable Cliff Weller MD Unavailable Unavailable Cliff Weller MD Unavailable Unavailable Cliff Weller MD Unavailable Unavailable Cliff Weller MD Unavailable Unavailable Cliff Weller MD Unavailable Unavailable Cliff Weller MD Unavailable Unavailable Cliff Weller MD Unavailable Unavailable Cliff Weller MD Unavailable Unavailable Cliff Weller MD Unavailable Unavailable Cliff Weller MD Unavailable Unavailable Cliff Weller MD Unavailable Unavailable Cliff Weller MD Unavailable Unavailable Cliff Weller MD Unavailable Unavailable Cliff Weller MD Unavailable Unavailable Cliff Weller MD Unavailable Unavailable Cliff Weller MD Unavailable Unavailable WellerCliff MD Unavailable Unavailable Weller, Cliff Oneill MD Unavailable Unavailable Weller, Cliff Oneill MD Unavailable Unavailable Weller, Cliff Oneill MD Unavailable Unavailable Weller, D Nino STACK Unavailable Unavailable Weller, D Nino MD Unavailable Unavailable Weller, D Nino MD Unavailable Unavailable Weller, D Nino MD Unavailable Unavailable Weller, D Nino MD Unavailable Unavailable Weller, Cliff Oneill MD Unavailable Unavailable Weller, Cliff Oneill MD Unavailable Unavailable Weller, Cliff Oneill MD Unavailable Unavailable Weller, D Nino STACK Unavailable Unavailable Weller, Cliff Oneill MD Unavailable Unavailable Weller, Cliff Oneill MD Unavailable Unavailable Weller, Cliff Oneill MD Unavailable Unavailable Weller, Cliff Oneill MD Unavailable Unavailable Weller, Cliff Oneill MD Unavailable Unavailable Weller, Cliff Oneill MD Unavailable Unavailable Weller, Cliff Oneill MD Unavailable Unavailable Weller, Cliff Oneill MD Unavailable Unavailable Weller, Cliff Oneill MD Unavailable Unavailable Weller, Cliff Oneill MD Unavailable Unavailable Weller, Cliff Oneill MD Unavailable Unavailable Weller, D Nino MD Unavailable Unavailable Weller, D Nino MD Unavailable Unavailable Weller, D Nino MD Unavailable Unavailable Weller, D Nino MD Unavailable Unavailable Weller, Cliff Oneill MD Unavailable Unavailable Weller, Cliff Oenill MD Unavailable Unavailable Weller, Cliff Oneill MD Unavailable Unavailable Weller, Cliff Oneill MD Unavailable Unavailable Weller, Cliff Oneill MD Unavailable Unavailable Weller, Cliff Oneill MD Unavailable Unavailable Weller, Cliff Oneill MD Unavailable Unavailable Weller, Cliff Oneill MD Unavailable Unavailable Weller, Cliff Oneill MD Unavailable Unavailable Weller, Cliff Oneill MD Unavailable Unavailable Weller, Cliff Oneill MD Unavailable Unavailable Noragong, Sarah Unavailable [phone] Noragong, Sarah Unavailable [phone] Noragong, Sarah Unavailable [phone] Re-disclosure Warning The records that you are about to access may contain information from federally-assisted alcohol or drug abuse programs. If such information is present, then the following federally mandated warning applies: This information has been disclosed to you from records protected by federal confidentiality rules (42 CFR part 2). The federal rules prohibit you from making any further disclosure of this information unless further disclosure is expressly permitted by the written consent of the person to whom it pertains or as otherwise permitted by 42 CFR part 2. A general authorization for the release of medical or other information is NOT sufficient for this purpose. The Federal rules restrict any use of the information to criminally investigate or prosecute any alcohol or drug abuse patient.The records that you are about to access may contain highly sensitive health information, the redisclosure of which is protected by Article 27-F of the [facility] Public Health law. If you continue you may have access to information: Regarding HIV / AIDS; Provided by facilities licensed or operated by the [facility] Office of Mental Health; or Provided by the [facility] Office for People With Developmental Disabilities. If such information is present, then the following [facility] mandated warning applies: This information has been disclosed to you from confidential records which are protected by state law. State law prohibits you from making any further disclosure of this information without the specific written consent of the person to whom it pertains, or as otherwise permitted by law. Any unauthorized further disclosure in violation of state law may result in a fine or fci sentence or both. A general authorization for the release of medical or other information is NOT sufficient authorization for further disc losure. Allergies and Adverse Reactions Type Description Substance Reaction Status Data Source(s ) Allergy to substance Allergy to substance Sulfa (Sulfonamide Antibiot ics) [facility] ([facility]) Allergy to substance Allergy to substance Sulfa (Sulfonamide Antibiot ics) [facility]) Allergy to substance Allergy to substance Sulfa (Sulfonamide Antibiot ics) [facility] ([facility]) Family History Family Member Name Family Member Gender Family Member Status Date o f Status Description Data Source(s) Unknown Unknown Problem [facility] ([facility], [facility]) mother Unknown Female Problem [facility] ([facility] Encounters Encounter Providers Location Date Indications Data Source(s ) OFFICE OUTPATIENT NEW 60 MINUTES Attender: ARI MEDRANO CARPENTER REPAIRER Ph ysical Therapy 07/04/2021 01:45:00 PM EDT MEDENT ([facility]) ASHLEY Wilcox: [address] [place] [address], Ph. Attender: Sarah Negron [facility] Medical 06/29/2021 12:00:00 AM EDT [facility]) ASHLEY Lacey-BC: [address] [place] [address], Ph. Attender: Bridgette Nash [facility] Medical 06/14/2021 12:00:00 AM EDT [facility] ([facility]) Bridgette Cao [facility]: [address], [place] [address], Ph. Attender: Bridgette Cao [facility] Medical 06/14/2021 12:00:00 AM EDT [place] ([facility]) [place] [address] [facility] [address] 05/10/2021 12:00:00 AM EDT eCW1 ([facility]) [place] [address] [facility] [address] 05/09/2021 12:00:00 AM EDT eCW1 ([facility]) Bridgette Cao [facility]: [address], [place] [address], Ph. Attender: Bridgette Cao [facility] Medical 04/20/2021 12:00:00 AM EDT [facility] ([facility]) Bridgette Cao [facility]: [address], [place] [address], Ph. Attender: Bridgette Cao [facility] Medical 04/20/2021 12:00:00 AM EDT [facility] ([facility]) Bridgette Cao [facility]: [address], [place] [address], Ph. Attender: Bridgette Cao [facility] Medical 04/20/2021 12:00:00 AM EDT [facility] ([facility]) Bridgette Cao [facility]: [address], [place] [address], Ph. Attender: Bridgette Cao [facility] Medical 04/20/2021 12:00:00 AM EDT [facility] ([facility]) Bridgette Cao [facility]: [address], [place] [address], Ph. Attender: Bridgette Cao [facility] Medical 03/31/2021 12:00:00 AM EDT [facility] ([facility]) Bridgette Cao [facility]: [address], [place] [address], Ph. Attender: Bridgette Cao [facility] Medical 03/31/2021 12:00:00 AM EDT [facility] ([facility]) Bridgette Cao [facility]: [address], [place] [address], Ph. Attender: Bridgette Cao [facility] Medical 03/31/2021 12:00:00 AM EDT [facility] ([facility]) Bridgette Cao [facility]: [address], [place] [address], Ph. Attender: Bridgette Cao [facility] Medical 03/31/2021 12:00:00 AM EDT [facility] ([facility]) Bridgette Cao [facility]: [address], [place] [address], Ph. Attender: Bridgette Cao [facility] Medical 03/31/2021 12:00:00 AM EDT [facility] ([facility]) [place] [address] [facility] [address] 03/07/2021 12:00:00 AM EDT eCW1 ([facility]) [place] [address] [facility] [place] [address] 02/22/2021 12:00:00 AM EDT eCW1 ([facility]) [place] [address] [facility] [address] 12/23/2020 12:00:00 AM EDT eCW1 ([facility]) Outpatient [address] [facility], [place] [address] 11/10/2020 12:00:00 AM EST eCW1 ([facility]) Outpatient Attender: RONAN YATES [facility] Office 10/18 01:45:00 PM EST MEDENT ([facility] NINA Laureano-BC: [address], [place] [address], Ph. Attender: Lore Brizuela NP [facility] Medical 10/20/2020 12:00:00 AM EST BREONNA ([facility]) ESVIN LaureanoBC: [address], [place] [address], Ph. Attender: Lore Brizuela NP [facility] Medical 10/20/2020 12:00:00 AM EST BREONNA ([facility]) ESVIN LaureanoBC: [address], [place] [address], Ph. Attender: Lore Brizuela NP [facility] Medical 10/20/2020 12:00:00 AM EST BREONNA ([facility]) ESVIN LaureanoBC: [address], [place] [address], Ph. Attender: Lore Brizuela NP [facility] Medical 10/20/2020 12:00:00 AM EST [facility] ([facility]) ESVIN LaureanoBC: [address], [place] [address], Ph. Attender: Lore Brizuela NP [facility] Medical 10/20/2020 12:00:00 AM EST [facility] ([facility]) ESVIN LaureanoBC: [address], [place] [address], Ph. Attender: Lore Brizuela NP [facility] Medical 10/20/2020 12:00:00 AM EST [facility] ([facility]) Outpatient Attender: Nino Weller MD 07/30/2020 08:16:01 AM EST [facility] ESVIN LaureanoBC: [address], [place] [address], Ph. Attender: Lore Brizuela NP [facility] Medical 07/30/2020 12:00:00 AM EST [facility] ([facility]) ESVIN LaureanoBC: [address], [place] [address], Ph. Attender: Lore Brizuela NP [facility] Medical 07/30/2020 12:00:00 AM EST BRE[facility] ([facility]) ESVIN LaureanoBC: [address], [place] [address], Ph. Attender: Lore Brizuela NP [facility] Medical 07/30/2020 12:00:00 AM EST [facility] ([facility]) ESVIN LaureanoBC: [address], [place] [address], Ph. Attender: Lore Brizuela NP [facility] Medical 07/30/2020 12:00:00 AM EST [facility] ([facility]) ESVIN LaureanoBC: [address], [place] [address], Ph. Attender: Lore Brizuela NP [facility] Medical 07/30/2020 12:00:00 AM EST [facility] ([facility]) NINA Laureano-BC: [address], [place] [address], Ph. Attender: Lore Brizuela NP [facility] Medical 07/30/2020 12:00:00 AM EST [facility] ([facility]) NINA Laureano-BC: [address], [place] [address], Ph. Attender: Lore Brizuela NP [facility] Medical 07/30/2020 12:00:00 AM EST [facility] ([facility]) Outpatient Attender: Nino Solorzano/Francisco Javier/Abraham/Madeline indl 07/22/2020 12:30:00 PM EST MEDENT ([facility], ) Outpatient Attender: RONAN YATES [facility] 06/19 11:00:00 AM EDT MEDENT ([facility] Outpatient Attender: Nino Weller MD 06/29/2020 11:43:01 AM EDT [facility] Outpatient Attender: Nino Weller MD 06/25/2020 01:10:01 PM EDT [facility] Outpatient Attender: Nino Weller MD 06/16/2020 09:25:00 PM EDT [facility] Outpatient Attender: Nino Weller MD 06/09/2020 04:51:01 PM EDT [facility] Outpatient Attender: Nino Weller MD 06/09/2020 04:51:00 PM EDT [facility] Outpatient Attender: Nino Weller MD 06/09/2020 09:30:01 AM EDT [facility] Outpatient Attender: Nino Weller MD 06/01/2020 09:54:04 AM EDT [facility] Outpatient Attender: Nino Weller MD 06/01/2020 09:52:59 AM EDT [facility] Outpatient Attender: Nino Weller MD 06/01/2020 09:44:01 AM EDT [facility] Outpatient Attender: Nino Weller MD 06/01/2020 07:45:01 AM EDT [facility] Outpatient Attender: Nino Weller MD 05/28/2020 03:53:00 PM EDT [facility] Outpatient Attender: Nino Weller MD 05/21/2020 01:20:00 PM EDT [facility] Outpatient Attender: Nino Weller MD 05/20/2020 09:43:02 AM EDT [facility] Outpatient Attender: Nino Weller MD 05/19/2020 08:32:02 AM EDT [facility] Outpatient Attender: Nino Weller MD 05/19/2020 08:32:01 AM EDT [facility] Outpatient Attender: Nino Weller MD 05/10/2020 10:46:01 AM EDT [facility] Immunizations Vaccine Date Status Description Data Source(s) New in 2011. IIV4 08/11/2020 01:02:00 PM EST completed [facility] ([facility], ) Medications Medication Brand Name Start Date Product Form Dose Route Admi nistrative Instructions Pharmacy Instructions Status Indications Reaction Description Data Source(s) Trulicity Trulicity 07/04/2021 12:00:00 AM EDT act akosua [facility] ([facility]) 24 HR Metformin hydrochloride 500 MG Extended Release Oral Tablet Metformin HCL ER 07/04/2021 12:00:00 AM EDT ORAL active [facility] ([facility]) meloxicam 15 MG Oral Tablet Meloxicam 07/01/2021 12:00:00 AM EDT ORAL active [facility] ([facility]) 150 mg 06/25/2021 12:00:00 AM EDT tablet 2 TAKE ONE TABLET BY MOUTH EVERY DAY FOR 2 DAYS TAKE ONE TABLET BY MOUTH EVERY DAY FOR 2 DAYS SOLD: 06/26/2021 [facility] 0.005 % 06/23/2021 12:00:00 AM EDT drops 2 INSTILL 1 DROP INTO BOTH EYES AT BEDTIME INSTILL 1 DROP INTO BOTH EYES AT BEDTIME SOLD: 06/23/2021 [facility] 10 mg 06/20/2021 12:00:00 AM EDT tablet 90 TAKE ONE TABLET BY MOUTH THREE TIMES A DAY FOR TREMORS TAKE ONE TABLET BY MOUTH THREE TIMES A DAY FOR TREMORS SOLD: 06/22/2021 [facility] 500 mg 06/17/2021 12:00:00 AM EDT tablet 10 TAKE ONE TABLET BY MOUTH EVERY 12 HOURS FOR 5 DAYS TAKE ONE TABLET BY MOUTH EVERY 12 HOURS FOR 5 DAYS K[facility]A [facility] 150 mg 06/15/2021 12:00:00 AM EDT tablet sustained-releas e 12 hr 30 TAKE 1 TABLET BY MOUTH ONCE A DAY IN THE MORNING TAKE 1 TABLET BY MOUTH ONCE A DAY IN THE MORNING SOLD: 06/17/2021 [facility] 500 mg 06/14/2021 12:00:00 AM EDT tablet 60 TAKE 1-2 TABLETS BY MOUTH EVERY 6 HOURS NEEDED TAKE 1-2 TABLETS BY MOUTH EVERY 6 HOURS NEEDED SOLD : 06/14/2021 [facility] 150 mg 06/10/2021 12:00:00 AM EDT tablet 2 TAKE ONE TABLET BY MOUTH ONCE FOR 1 DOSE, REPEAT IN 48 HOURS TAKE ONE TABLET BY MOUTH ONCE FOR 1 DOSE , REPEAT IN 48 HOURS SOLD: 06/10/2021 [facility] 200 mg 06/10/2021 12:00:00 AM EDT tablet 6 TAKE ONE TABLET BY MOUTH THREE TIMES A DAY FOR 2 DAYS TAKE ONE TABLET BY MOUTH THREE TIMES A DAY FOR 2 DAYS SOLD: 06/10/2021 [facility] Cephalexin 500 MG Oral Capsule CEPHALEXIN 06/10/2021 12:00:00 AM EDT capsule 21 TAKE ONE CAPSULE BY MOUTH THREE TIMES A DAY FOR 7 DAYS TAKE ONE CAPSULE BY MOUTH THREE TIMES A DAY FOR 7 DAYS SOLD: 06/10/2021 [facility] 1 mg 06/09/2021 12:00:00 AM EDT tablet 90 TAKE ONE TABLET BY MOUTH THREE TIMES A DAY MAXIMUM DAILY DOSE = 3 TABLETS TAKE ONE TABLET BY MOUTH THREE TIMES A DAY MAXIMUM DAILY DOSE = 3 TABLETS SOLD: 06/09/2021 [facility] 150 mg 05/25/2021 12:00:00 AM EDT tablet 2 TAKE ONE TABLET BY MOUTH FOR 1 DOSE THEN TAKE 2ND TABLET 48 HOURS LATER TAKE ONE TABLET BY MOUTH FOR 1 DOSE THEN TAKE 2ND TABLET 48 HOURS LATER SOLD: 05/25/2021 [facility] 100 mg 05/18/2021 12:00:00 AM EDT tablet 30 TAKE 1 TABLET BY MOUTH ONCE A DAY AT NOON TAKE 1 TABLET BY MOUTH ONCE A DAY AT NOON SOLD: 05/18/2021 [facility] Citalopram 20 MG Oral Tablet CITALOPRAM HYDROBROMIDE 05/17/2021 12:00:00 AM EDT tablet 30 TAKE 1 TABLET BY MOUTH ONCE A DA Y WITH DINNER TAKE 1 TABLET BY MOUTH ONCE A DAY WITH DINNER SOLD: 05/17/2021 [facility] Citalopram 20 MG Oral Tablet CITALOPRAM HYDROBROMIDE 05/17/2021 12:00:00 AM EDT tablet 30 TAKE 1 TABLET BY MOUTH ONCE A DA Y WITH DINNER TAKE 1 TABLET BY MOUTH ONCE A DAY WITH DINNER SOLD: 06/14/2021 [facility] 300 mg 05/12/2021 12:00:00 AM EDT capsule 14 TAKE ONE CAPSULE BY MOUTH EVERY 12 HOURS FOR 7 DAYS TAKE ONE CAPSULE BY MOUTH EVERY 12 HOURS FOR 7 DAYS SO LD: 05/12/2021 [facility] 31 gauge x 3/16" 05/09/2021 12:00:00 AM EDT needle 100 USE DIRECTED TWICE DAILY USE DIRECTED TWICE DAILY SOLD: 06/27/2021 [facility] 31 gauge x 3/16" 05/09/2021 12:00:00 AM EDT needle 100 USE DIRECTED TWICE DAILY USE DIRECTED TWICE DAILY SOLD: 05/10/2021 [facility] 1 mg 05/09/2021 12:00:00 AM EDT tablet 90 TAKE ONE TABLET BY MOUTH THREE TIMES A DAY MAXIMUM DAILY DOSE = 3 TABLETS TAKE ONE TABLET BY MOUTH THREE TIMES A DAY MAXIMUM DAILY DOSE = 3 TABLETS SOLD: 05/10/2021 [facility] 150 mg 05/04/2021 12:00:00 AM EDT tablet 2 TAKE 1 TABLET BY MOUTH ONCE PER DAY THEN TAKE 2ND TABLET IN 48 HOURS TAKE 1 TABLET BY MOUTH ONCE PER DAY THEN TAKE 2ND TABLET IN 48 HOURS SOLD: 05/04/2021 [facility] 875 mg 05/04/2021 12:00:00 AM EDT tablet 14 TAKE ONE TABLET BY MOUTH EVERY 12 HOURS FOR 7 DAYS TAKE ONE TABLET BY MOUTH EVERY 12 HOURS FOR 7 DAYS KAMILLA [facility] Cyclobenzaprine hydrochloride 10 MG Oral Tablet CYCLOBENZAPR INE HCL 05/04/2021 12:00:00 AM EDT tablet 21 TAKE ONE TABLET BY MOUTH THREE TIMES A DAY FOR 7 DAYS TAKE ONE TABLET BY MOUTH THREE TIMES A DAY FOR 7 DAYS SOLD: [facility] 15 mg 05/02/2021 12:00:00 AM EDT tablet 30 TAKE ONE TABLET BY MOUTH EVERY MORNING AT 8AM TAKE ONE TABLET BY MOUTH EVERY MORNING AT 8AM SOLD: 06/06/2021 [facility] 88 mcg 05/02/2021 12:00:00 AM EDT tablet 30 TAKE ONE TABLET BY MOUTH EVERY MORNING AT 8AM TAKE ONE TABLET BY MOUTH EVERY MORNING AT 8AM SOLD: 07/04/2021 [facility] 15 mg 05/02/2021 12:00:00 AM EDT tablet 30 TAKE ONE TABLET BY MOUTH EVERY MORNING AT 8AM TAKE ONE TABLET BY MOUTH EVERY MORNING AT 8AM SOLD: 05/02/2021 [facility] 88 mcg 05/02/2021 12:00:00 AM EDT tablet 30 TAKE ONE TABLET BY MOUTH EVERY MORNING AT 8AM TAKE ONE TABLET BY MOUTH EVERY MORNING AT 8AM SOLD: 05/02/2021 [facility] 1 mg 05/02/2021 12:00:00 AM EDT tablet 30 TAKE ONE TABLET BY MOUTH EVERY DAY AT 5PM TAKE ONE TABLET BY MOUTH EVERY DAY AT 5PM SOLD: 05/02/2021 [facility] 50 mcg (2,000 unit) 05/02/2021 12:00:00 AM EDT tablet 30 TAKE ONE TABLET BY MOUTH EVERY MORNING AT 8AM TAKE ONE TABLET BY MOUTH EVERY MORNING AT 8AM SOLD: 05/02/2021 [facility] 1 mg 05/02/2021 12:00:00 AM EDT tablet 30 TAKE ONE TABLET BY MOUTH EVERY DAY AT 5PM TAKE ONE TABLET BY MOUTH EVERY DAY AT 5PM SOLD: 07/04/2021 [facility] 50 mcg (2,000 unit) 05/02/2021 12:00:00 AM EDT tablet 30 TAKE ONE TABLET BY MOUTH EVERY MORNING AT 8AM TAKE ONE TABLET BY MOUTH EVERY MORNING AT 8AM SOLD: 06/06/2021 [facility] 50 mcg (2,000 unit) 05/02/2021 12:00:00 AM EDT tablet 30 TAKE ONE TABLET BY MOUTH EVERY MORNING AT 8AM TAKE ONE TABLET BY MOUTH EVERY MORNING AT 8AM SOLD: 07/04/2021 [facility] 88 mcg 05/02/2021 12:00:00 AM EDT tablet 30 TAKE ONE TABLET BY MOUTH EVERY MORNING AT 8AM TAKE ONE TABLET BY MOUTH EVERY MORNING AT 8AM SOLD: 06/06/2021 [facility] 800 mg 05/02/2021 12:00:00 AM EDT tablet 90 TAKE ONE TABLET BY MOUTH THREE TIMES A DAY TAKE ONE TABLET BY MOUTH THREE TIMES A DAY SOLD: 06/06/2021 [facility] 800 mg 05/02/2021 12:00:00 AM EDT tablet 90 TAKE ONE TABLET BY MOUTH THREE TIMES A DAY TAKE ONE TABLET BY MOUTH THREE TIMES A DAY SOLD: 05/02/2021 [facility] 1 mg 05/02/2021 12:00:00 AM EDT tablet 30 TAKE ONE TABLET BY MOUTH EVERY DAY AT 5PM TAKE ONE TABLET BY MOUTH EVERY DAY AT 5PM SOLD: 06/06/2021 [facility] 5 mg 04/22/2021 12:00:00 AM EDT tablet 30 TAKE ONE TABLET BY MOUTH EVERY DAY AT 5:00PM TAKE ONE TABLET BY MOUTH EVERY DAY AT 5:00PM SOLD: 04/24/2021 [facility] 5 mg 04/22/2021 12:00:00 AM EDT tablet 30 TAKE ONE TABLET BY MOUTH EVERY DAY AT 5:00PM TAKE ONE TABLET BY MOUTH EVERY DAY AT 5:00PM SOLD: 06/22/2021 [facility] 5 mg 04/22/2021 12:00:00 AM EDT tablet 30 TAKE ONE TABLET BY MOUTH EVERY DAY AT 5:00PM TAKE ONE TABLET BY MOUTH EVERY DAY AT 5:00PM SOLD: 05/23/2021 [facility] 1.5 mg/0.5 mL 04/22/2021 12:00:00 AM EDT pen injector 2 INJECT 1.5MG UNDER THE SKIN WEEKLY INJECT 1.5MG UNDER THE SKIN WEEKLY SOLD: 04/24/2021 [facility] 1.5 mg/0.5 mL 04/22/2021 12:00:00 AM EDT pen injector 2 INJECT 1.5MG UNDER THE SKIN WEEKLY INJECT 1.5MG UNDER THE SKIN WEEKLY SOLD: 05/23/2021 [facility] 10 mg 04/21/2021 12:00:00 AM EDT tablet 90 TAKE ONE TABLET BY MOUTH THREE TIMES A DAY FOR TREMORS TAKE ONE TABLET BY MOUTH THREE TIMES A DAY FOR TREMORS SOLD: 04/24/2021 [facility] 150 mg 04/21/2021 12:00:00 AM EDT tablet sustained-releas e 12 hr 30 TAKE ONE TABLET BY MOUTH EVERY MORNING TAKE ONE TABLET BY MOUTH EVERY MORNING SOLD: 05/23/2021 [facility] 10 mg 04/21/2021 12:00:00 AM EDT tablet 90 TAKE ONE TABLET BY MOUTH THREE TIMES A DAY FOR TREMORS TAKE ONE TABLET BY MOUTH THREE TIMES A DAY FOR TREMORS SOLD: 05/23/2021 [facility] 150 mg 04/21/2021 12:00:00 AM EDT tablet sustained-releas e 12 hr 30 TAKE ONE TABLET BY MOUTH EVERY MORNING TAKE ONE TABLET BY MOUTH EVERY MORNING SOLD: 04/24/2021 [facility] 20 mg 04/20/2021 12:00:00 AM EDT tablet 7 TAKE ONE TABLET BY MOUTH EVERY DAY FOR 7 DAYS TAKE ONE TABLET BY MOUTH EVERY DAY FOR 7 DAYS SOLD: 04/24/2021 [facility] 10 mg 04/14/2021 12:00:00 AM EDT tablet 30 TAKE ONE TABLET BY MOUTH EVERY MORNING AT 8AM TAKE ONE TABLET BY MOUTH EVERY MORNING AT 8AM SOLD: 05/12/2021 [facility] Potassium Chloride 10 MEQ Extended Release Oral Tablet POTAS SIUM CHLORIDE 04/14/2021 12:00:00 AM EDT tablet extended release 60 TAKE ONE TABLET BY MOUTH TWICE A DAY AT 8AM AND 5PM TAKE ONE TABLET BY MOUTH TWICE A DAY AT 8AM AND 5PM SOLD: 06/09/2021 [facility] Potassium Chloride 10 MEQ Extended Release Oral Tablet POTAS SIUM CHLORIDE 04/14/2021 12:00:00 AM EDT tablet extended release 60 TAKE ONE TABLET BY MOUTH TWICE A DAY AT 8AM AND 5PM TAKE ONE TABLET BY MOUTH TWICE A DAY AT 8AM AND 5PM SOLD: 05/12/2021 [facility] 10 mg 04/14/2021 12:00:00 AM EDT tablet 30 TAKE ONE TABLET BY MOUTH EVERY MORNING AT 8AM TAKE ONE TABLET BY MOUTH EVERY MORNING AT 8AM SOLD: 06/09/2021 [facility] 10 mg 04/14/2021 12:00:00 AM EDT tablet 30 TAKE ONE TABLET BY MOUTH EVERY MORNING AT 8AM TAKE ONE TABLET BY MOUTH EVERY MORNING AT 8AM SOLD: 04/14/2021 [facility] Potassium Chloride 10 MEQ Extended Release Oral Tablet POTAS SIUM CHLORIDE 04/14/2021 12:00:00 AM EDT tablet extended release 60 TAKE ONE TABLET BY MOUTH TWICE A DAY AT 8AM AND 5PM TAKE ONE TABLET BY MOUTH TWICE A DAY AT 8AM AND 5PM SOLD: 04/14/2021 [facility] 3 ML Insulin Glargine 100 UNT/ML Pen Injector [Basagla r] 100 unit/mL (3 mL) INSULIN GLARGINE,[email or web address] 04/11/2021 12:00:00 AM EDT insulin pen 15 INJECT 12 UNITS UNDER THE SKIN EVERY MORNING & 26 UNITS EVERY EVENING MAXIMUM DAILY DOSE = 50 UNITS INJECT 12 UNITS UNDER THE SKIN EVERY MOR KELBY & 26 UNITS EVERY EVENING MAXIMUM DAILY DOSE = 50 UNITS SOLD: 05/10/2021 [facility] 3 ML Insulin Glargine 100 UNT/ML Pen Injector [Basagla r] 100 unit/mL (3 mL) INSULIN GLARGINE,[email or web address] 04/11/2021 12:00:00 AM EDT insulin pen 15 INJECT 12 UNITS UNDER THE SKIN EVERY MORNING & 26 UNITS EVERY EVENING MAXIMUM DAILY DOSE = 50 UNITS INJECT 12 UNITS UNDER THE SKIN EVERY MOR KELBY & 26 UNITS EVERY EVENING MAXIMUM DAILY DOSE = 50 UNITS SOLD: 04/11/2021 [facility] 1 mg 04/07/2021 12:00:00 AM EDT tablet 90 TAKE 1 TABLET BY MOUTH 3 TIMES A DAY MAX DAILY DOSE = 3 TABLETS TAKE 1 TABLET BY MOUTH 3 TIMES A DAY MAX DAILY DOSE = 3 TABLETS SOLD: 04/10/2021 [facility] 100,000 unit/gram 04/05/2021 12:00:00 AM EDT cream 30 APPLY 1 APPLICATION EXTERNALLY TO AFFECTED AREA(S) TWICE A DAY FOR 14 DAYS APPLY 1 APPLICATION EXTERNALLY TO AFFECTED AREA(S) TWICE A DAY FOR 14 DAYS SOLD: 04/05/2021 [facility] 200 mg 04/05/2021 12:00:00 AM EDT capsule 21 TAKE ONE CAPSULE BY MOUTH THREE TIMES A DAY FOR 7 DAYS TAKE ONE CAPSULE BY MOUTH THREE TIMES A DAY FOR 7 DAYS SOLD: 04/05/2021 [facility] 150 mg 03/31/2021 12:00:00 AM EDT tablet 2 TAKE ONE TABLET BY MOUTH ONCE, MAY REPEAT IN 5 TO 7 DAYS TAKE ONE TABLET BY MOUTH ONCE, MAY REPEA T IN 5 TO 7 DAYS SOLD: 04/05/2021 [facility] 300 mg 03/24/2021 12:00:00 AM EDT capsule 14 TAKE ONE CAPSULE BY MOUTH EVERY 12 HOURS FOR 7 DAYS TAKE ONE CAPSULE BY MOUTH EVERY 12 HOURS FOR 7 DAYS SO LD: 03/24/2021 [facility] 200 mg 03/24/2021 12:00:00 AM EDT capsule 21 TAKE ONE CAPSULE BY MOUTH THREE TIMES A DAY FOR 7 DAYS TAKE ONE CAPSULE BY MOUTH THREE TIMES A DAY FOR 7 DAYS SOLD: 03/24/2021 [facility] BLOOD SUGAR DIAGNOSTIC 03/17/2021 12:00:00 AM EDT strip 200 USE TO TEST SUGAR UP TO 4 TIMES A DAY USE TO TEST SUGAR UP TO 4 TIMES A DAY SOLD: 05/08/2021 [facility] BLOOD SUGAR DIAGNOSTIC 03/17/2021 12:00:00 AM EDT strip 200 USE TO TEST SUGAR UP TO 4 TIMES A DAY USE TO TEST SUGAR UP TO 4 TIMES A DAY SOLD: 03/19/2021 [facility] BLOOD SUGAR DIAGNOSTIC 03/17/2021 12:00:00 AM EDT strip 200 USE TO TEST SUGAR UP TO 4 TIMES A DAY USE TO TEST SUGAR UP TO 4 TIMES A DAY SOLD: 06/26/2021 [facility] 100 mg 03/14/2021 12:00:00 AM EDT tablet 30 TAKE ONE TABLET BY MOUTH EVERY MORNING TAKE ONE TABLET BY MOUTH EVERY MORNING SOLD: 04/13/2021 [facility] 100 mg 03/14/2021 12:00:00 AM EDT tablet 30 TAKE ONE TABLET BY MOUTH EVERY MORNING TAKE ONE TABLET BY MOUTH EVERY MORNING SOLD: 03/14/2021 [facility] 75 mg 03/14/2021 12:00:00 AM EDT capsule,extended releas e 24hr 30 TAKE ONE CAPSULE BY MOUTH EVERY MORNING TAKE ONE CAPSULE BY MOUTH EVERY MORNING SOLD: 04/11/2021 [facility] 75 mg 03/14/2021 12:00:00 AM EDT capsule,extended releas e 24hr 30 TAKE ONE CAPSULE BY MOUTH EVERY MORNING TAKE ONE CAPSULE BY MOUTH EVERY MORNING SOLD: 03/14/2021 [facility] 81 mg 03/10/2021 12:00:00 AM EDT tablet,delayed release (DR/EC) 30 TAKE 1 TABLET BY MOUTH AT 8:00AM TAKE 1 TABLET BY MOUTH AT 8:00AM SOLD: 06/06/2021 [facility] atorvastatin 40 MG Oral Tablet ATORVASTATIN CALCIUM 03/10/2021 1 2:00:00 AM EDT tablet 90 TAKE ONE TABLET BY MOUTH EVERY D AY AT 5P.M TAKE ONE TABLET BY MOUTH EVERY DAY AT 5P.M SOLD: 06/06/2021 [facility] 325 mg (65 mg iron) 03/10/2021 12:00:00 AM EDT tablet 14 TAKE ONE TABLET BY MOUTH EVERY OTHER DAY AT 8:00AM TAKE ONE TABLET BY MOUTH EVERY OTHER DAY AT 8:00AM SOLD: 06/22/2021 [facility] 325 mg (65 mg iron) 03/10/2021 12:00:00 AM EDT tablet 14 TAKE ONE TABLET BY MOUTH EVERY OTHER DAY AT 8:00AM TAKE ONE TABLET BY MOUTH EVERY OTHER DAY AT 8:00AM SOLD: 04/05/2021 [facility] 325 mg (65 mg iron) 03/10/2021 12:00:00 AM EDT tablet 14 TAKE ONE TABLET BY MOUTH EVERY OTHER DAY AT 8:00AM TAKE ONE TABLET BY MOUTH EVERY OTHER DAY AT 8:00AM SOLD: 03/10/2021 [facility] 20 mg 03/10/2021 12:00:00 AM EDT capsule,delayed release (DR/EC) 30 TAKE ONE CAPSULE BY MOUTH EVERY MORNING AT 8A.M TAKE ONE CAPSULE BY MOUTH EVERY MORNING AT 8A.M SOLD: 05/02/2021 [facility] 50 mcg/actuation 03/10/2021 12:00:00 AM EDT spray,suspension 16 SPRAY TWO SPRAYS IN EACH NOSTRIL ONCE DAILY SPRAY TWO SPRAYS IN EACH NOSTRIL ONCE DAILY SOLD: 03/10/2021 [facility] BLOOD SUGAR DIAGNOSTIC 03/10/2021 12:00:00 AM EDT strip 25 TEST ONCE DAILY DIRECTED TEST ONCE DAILY DIRECTED SOLD: 03/10/2021 [facility] 20 mg 03/10/2021 12:00:00 AM EDT capsule,delayed release (DR/EC) 30 TAKE ONE CAPSULE BY MOUTH EVERY MORNING AT 8A.M TAKE ONE CAPSULE BY MOUTH EVERY MORNING AT 8A.M SOLD: 03/10/2021 [facility] 30 gauge 03/10/2021 12:00:00 AM EDT misc 100 USE DIRECTED THREE TIMES A DAY USE DIRECTED THREE TIMES A DAY SOLD: 03/10/2021 [facility] 81 mg 03/10/2021 12:00:00 AM EDT tablet,delayed release (DR/EC) 30 TAKE 1 TABLET BY MOUTH AT 8:00AM TAKE 1 TABLET BY MOUTH AT 8:00AM SOLD: 03/10/2021 [facility] 325 mg (65 mg iron) 03/10/2021 12:00:00 AM EDT tablet 14 TAKE ONE TABLET BY MOUTH EVERY OTHER DAY AT 8:00AM TAKE ONE TABLET BY MOUTH EVERY OTHER DAY AT 8:00AM SOLD: 05/02/2021 [facility] 20 mg 03/10/2021 12:00:00 AM EDT capsule,delayed release (DR/EC) 30 TAKE ONE CAPSULE BY MOUTH EVERY MORNING AT 8A.M TAKE ONE CAPSULE BY MOUTH EVERY MORNING AT 8A.M SOLD: 04/05/2021 [facility] Fluticasone propionate 0.05 MG/ACTUAT Metered Dose [facility] 50 mcg/actuation FLUTICASONE PROPIONATE 03/10/2021 12:00:00 AM EDT spray,suspension 16 SPRAY TWO SPRAYS IN EACH NOSTRIL ONCE DAILY SPRAY TWO SPRAYS IN EACH NOSTRIL ONCE DAILY SOLD: 05/02/2021 [facility] 30 gauge 03/10/2021 12:00:00 AM EDT misc 100 USE DIRECTED THREE TIMES A DAY USE DIRECTED THREE TIMES A DAY SOLD: 05/12/2021 [facility] 325 mg (65 mg iron) 03/10/2021 12:00:00 AM EDT tablet 14 TAKE ONE TABLET BY MOUTH EVERY OTHER DAY AT 8:00AM TAKE ONE TABLET BY MOUTH EVERY OTHER DAY AT 8:00AM SOLD: 05/29/2021 [facility] 81 mg 03/10/2021 12:00:00 AM EDT tablet,delayed release (DR/EC) 30 TAKE 1 TABLET BY MOUTH AT 8:00AM TAKE 1 TABLET BY MOUTH AT 8:00AM SOLD: 05/02/2021 [facility] 30 gauge 03/10/2021 12:00:00 AM EDT misc 100 USE DIRECTED THREE TIMES A DAY USE DIRECTED THREE TIMES A DAY SOLD: 04/10/2021 [facility] 20 mg 03/10/2021 12:00:00 AM EDT capsule,delayed release (DR/EC) 30 TAKE ONE CAPSULE BY MOUTH EVERY MORNING AT 8A.M TAKE ONE CAPSULE BY MOUTH EVERY MORNING AT 8A.M SOLD: 06/06/2021 [facility] 81 mg 03/10/2021 12:00:00 AM EDT tablet,delayed release (DR/EC) 30 TAKE 1 TABLET BY MOUTH AT 8:00AM TAKE 1 TABLET BY MOUTH AT 8:00AM SOLD: 07/04/2021 [facility] atorvastatin 40 MG Oral Tablet ATORVASTATIN CALCIUM 03/10/2021 1 2:00:00 AM EDT tablet 90 TAKE ONE TABLET BY MOUTH EVERY D AY AT 5P.M TAKE ONE TABLET BY MOUTH EVERY DAY AT 5P.M SOLD: 03/10/2021 [facility] 30 gauge 03/10/2021 12:00:00 AM EDT misc 100 USE DIRECTED THREE TIMES A DAY USE DIRECTED THREE TIMES A DAY SOLD: 06/12/2021 [facility] 1 mg 03/08/2021 12:00:00 AM EDT tablet 90 TAKE ONE TABLET BY MOUTH THREE TIMES A DAY MAXIMUM DAILY DOSE = 3TABLETS TAKE ONE TABLET BY MOUTH THREE TIMES A DAY MAXIMUM DAILY DOSE = 3TABLETS SOLD: 03/10/2021 [facility] Fluconazole 150 MG Oral Tablet [Diflucan] Diflucan 150 MG Di flucan 150 MG 03/07/2021 12:00:00 AM EDT 1.0 {tablet} active Diflucan 150 MG eCW1 ([facility]) Nystatin 452416 UNT/ML Topical Cream Nystatin 462884 U NIT/GM Nystatin 289612 UNIT/GM 03/07/2021 12:00:00 AM EDT 1.0 {application} active Nystatin 509831 UNIT/GM eCW1 ([facility]) 150 mg 03/07/2021 12:00:00 AM EDT tablet 3 TAKE 1 TABLET BY MOUTH ONCE A WEEK X 3 WEEKS TAKE 1 TABLET BY MOUTH ONCE A WEEK X 3 WEEKS SOLD: 03/07/2021 [facility] Fluconazole 150 MG Oral Tablet [Diflucan] Diflucan 150 MG Di flucan 150 MG 03/07/2021 12:00:00 AM EDT 1.0 {tablet} active Diflucan 150 MG eCW1 ([facility]) 100,000 unit/gram 03/07/2021 12:00:00 AM EDT cream 30 APPLY TO AFFECTED AREA(S) TWO TIMES A DAY X 21 DAYS APPLY TO AFFECTED AREA(S) TWO TIMES A DA Y X 21 DAYS SOLD: 03/20/2021 [facility] 100,000 unit/gram 03/07/2021 12:00:00 AM EDT cream 30 APPLY TO AFFECTED AREA(S) TWO TIMES A DAY X 21 DAYS APPLY TO AFFECTED AREA(S) TWO TIMES A DA Y X 21 DAYS SOLD: 03/07/2021 [facility] Fluconazole 150 MG Oral Tablet [Diflucan] Diflucan 150 MG Di flucan 150 MG 03/07/2021 12:00:00 AM EDT 1.0 {tablet} active Diflucan 150 MG eCW1 ([facility]) 100 unit/mL 02/23/2021 12:00:00 AM EDT solution 50 INJECT UNDER THE SKIN THREE TIMES A DAY PER SLIDING SCALE,MAXIMUM DAILY DOSE = 50 UNITS INJECT UNDER THE SKIN THREE TIMES A DAY PER SLIDING SCALE,MAXIMUM DAILY DOSE = 50 UNITS SOLD: 05/26/2021 [facility] 100 unit/mL 02/23/2021 12:00:00 AM EDT solution 50 INJECT UNDER THE SKIN THREE TIMES A DAY PER SLIDING SCALE,MAXIMUM DAILY DOSE = 50 UNITS INJECT UNDER THE SKIN THREE TIMES A DAY PER SLIDING SCALE,MAXIMUM DAILY DOSE = 50 UNITS SOLD: 02/28/2021 [facility] 10 mg 02/16/2021 12:00:00 AM EDT tablet 90 TAKE ONE TABLET BY MOUTH THREE TIMES A DAY NEEDED FOR TREMORS TAKE ONE TABLET BY MOUTH THREE TIMES A D AY NEEDED FOR TREMORS SOLD: 02/16/2021 [facility] 10 mg 02/16/2021 12:00:00 AM EDT tablet 90 TAKE ONE TABLET BY MOUTH THREE TIMES A DAY NEEDED FOR TREMORS TAKE ONE TABLET BY MOUTH THREE TIMES A D AY NEEDED FOR TREMORS SOLD: 03/16/2021 [facility] 31 gauge x 3/16" 02/12/2021 12:00:00 AM EDT needle 60 USE TWO TIMES A DAY USE TWO TIMES A DAY SOLD: 03/14/2021 [facility] 31 gauge x 3/16" 02/12/2021 12:00:00 AM EDT needle 60 USE TWO TIMES A DAY USE TWO TIMES A DAY SOLD: 04/11/2021 [facility] 31 gauge x 3/16" 02/12/2021 12:00:00 AM EDT needle 60 USE TWO TIMES A DAY USE TWO TIMES A DAY SOLD: 02/14/2021 [facility] 150 mg 01/27/2021 12:00:00 AM EDT capsule,extended releas e 24hr 60 TAKE 1 CAPSULE BY MOUTH EVERY MORNING AND 1 CAPSULE AT 1 P.M. TAKE 1 CAPSULE BY MOUTH EVERY MORNING AND 1 CAPSULE AT 1 P.M. SOLD: 01/27/2021 [facility] 88 mcg 01/24/2021 12:00:00 AM EDT tablet 30 TAKE ONE TABLET BY MOUTH EVERY MORNING AT 8AM TAKE ONE TABLET BY MOUTH EVERY MORNING AT 8AM SOLD: 02/28/2021 [facility] 88 mcg 01/24/2021 12:00:00 AM EDT tablet 30 TAKE ONE TABLET BY MOUTH EVERY MORNING AT 8AM TAKE ONE TABLET BY MOUTH EVERY MORNING AT 8AM SOLD: 03/30/2021 [facility] 88 mcg 01/24/2021 12:00:00 AM EDT tablet 30 TAKE ONE TABLET BY MOUTH EVERY MORNING AT 8AM TAKE ONE TABLET BY MOUTH EVERY MORNING AT 8AM SOLD: 01/26/2021 [facility] 800 mg 01/24/2021 12:00:00 AM EDT tablet 90 TAKE ONE TABLET BY MOUTH THREE TIMES A DAY TAKE ONE TABLET BY MOUTH THREE TIMES A DAY SOLD: 01/26/2021 [facility] 1.5 mg/0.5 mL 01/24/2021 12:00:00 AM EDT pen injector 2 INJECT 1.5MG UNDER THE SKIN WEEKLY INJECT 1.5MG UNDER THE SKIN WEEKLY SOLD: 03/25/2021 [facility] 5 mg 01/24/2021 12:00:00 AM EDT tablet 28 TAKE ONE TABLET BY MOUTH EVERY DAY AT 5PM TAKE ONE TABLET BY MOUTH EVERY DAY AT 5PM SOLD: 03/20/2021 [facility] 1.5 mg/0.5 mL 01/24/2021 12:00:00 AM EDT pen injector 2 INJECT 1.5MG UNDER THE SKIN WEEKLY INJECT 1.5MG UNDER THE SKIN WEEKLY SOLD: 01/26/2021 [facility] 15 mg 01/24/2021 12:00:00 AM EDT tablet 30 TAKE ONE TABLET BY MOUTH EVERY MORNING AT 8AM TAKE ONE TABLET BY MOUTH EVERY MORNING AT 8AM SOLD: 02/28/2021 [facility] 1.5 mg/0.5 mL 01/24/2021 12:00:00 AM EDT pen injector 2 INJECT 1.5MG UNDER THE SKIN WEEKLY INJECT 1.5MG UNDER THE SKIN WEEKLY SOLD: 02/28/2021 [facility] 15 mg 01/24/2021 12:00:00 AM EDT tablet 30 TAKE ONE TABLET BY MOUTH EVERY MORNING AT 8AM TAKE ONE TABLET BY MOUTH EVERY MORNING AT 8AM SOLD: 03/30/2021 [facility] 50 mcg (2,000 unit) 01/24/2021 12:00:00 AM EDT tablet 30 TAKE ONE TABLET BY MOUTH EVERY MORNING AT 8AM TAKE ONE TABLET BY MOUTH EVERY MORNING AT 8AM SOLD: 03/30/2021 [facility] 800 mg 01/24/2021 12:00:00 AM EDT tablet 90 TAKE ONE TABLET BY MOUTH THREE TIMES A DAY TAKE ONE TABLET BY MOUTH THREE TIMES A DAY SOLD: 03/30/2021 [facility] 50 mcg (2,000 unit) 01/24/2021 12:00:00 AM EDT tablet 30 TAKE ONE TABLET BY MOUTH EVERY MORNING AT 8AM TAKE ONE TABLET BY MOUTH EVERY MORNING AT 8AM SOLD: 02/28/2021 [facility] 5 mg 01/24/2021 12:00:00 AM EDT tablet 28 TAKE ONE TABLET BY MOUTH EVERY DAY AT 5PM TAKE ONE TABLET BY MOUTH EVERY DAY AT 5PM SOLD: 01/26/2021 [facility] 800 mg 01/24/2021 12:00:00 AM EDT tablet 90 TAKE ONE TABLET BY MOUTH THREE TIMES A DAY TAKE ONE TABLET BY MOUTH THREE TIMES A DAY SOLD: 02/28/2021 [facility] 5 mg 01/24/2021 12:00:00 AM EDT tablet 28 TAKE ONE TABLET BY MOUTH EVERY DAY AT 5PM TAKE ONE TABLET BY MOUTH EVERY DAY AT 5PM SOLD: 02/21/2021 [facility] 50 mcg (2,000 unit) 01/24/2021 12:00:00 AM EDT tablet 30 TAKE ONE TABLET BY MOUTH EVERY MORNING AT 8AM TAKE ONE TABLET BY MOUTH EVERY MORNING AT 8AM SOLD: 01/26/2021 [facility] 15 mg 01/24/2021 12:00:00 AM EDT tablet 30 TAKE ONE TABLET BY MOUTH EVERY MORNING AT 8AM TAKE ONE TABLET BY MOUTH EVERY MORNING AT 8AM SOLD: 01/26/2021 [facility] 1 mg 01/23/2021 12:00:00 AM EDT tablet 30 TAKE ONE TABLET BY MOUTH EVERY DAY AT 5PM TAKE ONE TABLET BY MOUTH EVERY DAY AT 5PM SOLD: 01/26/2021 [facility] 1 mg 01/23/2021 12:00:00 AM EDT tablet 30 TAKE ONE TABLET BY MOUTH EVERY DAY AT 5PM TAKE ONE TABLET BY MOUTH EVERY DAY AT 5PM SOLD: 02/28/2021 [facility] 1 mg 01/23/2021 12:00:00 AM EDT tablet 30 TAKE ONE TABLET BY MOUTH EVERY DAY AT 5PM TAKE ONE TABLET BY MOUTH EVERY DAY AT 5PM SOLD: 03/30/2021 [facility] 100 mg 01/19/2021 12:00:00 AM EDT tablet 30 TAKE ONE TABLET BY MOUTH EVERY MORNING TAKE ONE TABLET BY MOUTH EVERY MORNING SOLD: 01/19/2021 [facility] 75 mg 01/19/2021 12:00:00 AM EDT capsule,extended releas e 24hr 30 TAKE ONE CAPSULE BY MOUTH EVERY MORNING TAKE ONE CAPSULE BY MOUTH EVERY MORNING SOLD: 02/16/2021 [facility] 100 mg 01/19/2021 12:00:00 AM EDT tablet 30 TAKE ONE TABLET BY MOUTH EVERY MORNING TAKE ONE TABLET BY MOUTH EVERY MORNING SOLD: 02/16/2021 [facility] 75 mg 01/19/2021 12:00:00 AM EDT capsule,extended releas e 24hr 30 TAKE ONE CAPSULE BY MOUTH EVERY MORNING TAKE ONE CAPSULE BY MOUTH EVERY MORNING SOLD: 01/19/2021 [facility] 150 mg 12/23/2020 12:00:00 AM EDT tablet 3 TAKE 1 TABLET BY MOUTH ON DAY 13 AND 7 TAKE 1 TABLET BY MOUTH ON DAY 13 AND 7 SOLD: 12/23/2020 [facility] 150 mg 12/22/2020 12:00:00 AM EDT capsule,extended releas e 24hr 10 TAKE ONE CAPSULE BY MOUTH EVERY MORNING AND ONE AT 1P.M. TAKE ONE CAPSULE BY MOUTH EVERY MORNING AND ONE AT 1P.M. SOLD: 12/22/2020 [facility] 150 mg 12/22/2020 12:00:00 AM EDT capsule,extended releas e 24hr 50 TAKE ONE CAPSULE BY MOUTH EVERY MORNING AND ONE AT 1P.M. TAKE ONE CAPSULE BY MOUTH EVERY MORNING AND ONE AT 1P.M. SOLD: 12/27/2020 [facility] 1 mg 12/17/2020 12:00:00 AM EDT tablet 90 TAKE ONE TABLET BY MOUTH THREE TIMES A DAY MAXIMUM DAILY DOSE = 3 TABLETS TAKE ONE TABLET BY MOUTH THREE TIMES A DAY MAXIMUM DAILY DOSE = 3 TABLETS SOLD: 12/20/2020 [facility] 325 mg (65 mg iron) 12/10/2020 12:00:00 AM EDT tablet 14 TAKE ONE TABLET BY MOUTH EVERY OTHER DAY AT 8A.M. TAKE ONE TABLET BY MOUTH EVERY OTHER DAY AT 8A.M. SOLD: 01/17/2021 [facility] 325 mg (65 mg iron) 12/10/2020 12:00:00 AM EDT tablet 14 TAKE ONE TABLET BY MOUTH EVERY OTHER DAY AT 8A.M. TAKE ONE TABLET BY MOUTH EVERY OTHER DAY AT 8A.M. SOLD: 12/20/2020 [facility] 1 mg 11/15/2020 12:00:00 AM EST tablet 90 TAKE ONE TABLET BY MOUTH THREE TIMES A DAY MAXIMUM DAILY DOSE = 3 TABLETS TAKE ONE TABLET BY MOUTH THREE TIMES A DAY MAXIMUM DAILY DOSE = 3 TABLETS SOLD: 11/19/2020 [facility] Nystatin 836032 UNT/ML Topical Cream Nystatin 375323 U NIT/GM Nystatin 515989 UNIT/GM 11/10/2020 12:00:00 AM EST 1.0 {application} active Nystatin 841723 UNIT/GM eCW1 ([facility]) Fluconazole 150 MG Oral Tablet Fluconazole 150 MG 11/10/2020 12:00: 00 AM EST 1.0 {tablet} active Fluconazole 150 MG eCW1 ([facility]) 150 mg 11/10/2020 12:00:00 AM EST tablet 3 TAKE 1 TABLET BY MOUTH ON DAYS 1, 3 AND 7 TAKE 1 TABLET BY MOUTH ON DAYS 1, 3 AND 7 SOLD: 11/10/2020 [facility] Nystatin 664557 UNT/ML Topical Cream Nystatin 379638 U NIT/GM Nystatin 506622 UNIT/GM 11/10/2020 12:00:00 AM EST 1.0 {application} active Nystatin 807057 UNIT/GM eCW1 ([facility]) Nystatin 326570 UNT/ML Topical Cream Nystatin 505493 U NIT/GM Nystatin 977624 UNIT/GM 11/10/2020 12:00:00 AM EST 1.0 {application} active Nystatin 269114 UNIT/GM eCW1 ([facility]) 100,000 unit/gram 11/10/2020 12:00:00 AM EST cream 30 APPLY TO AFFECTED AREA(S) TWO TIMES A DAY APPLY TO AFFECTED AREA(S) TWO TIMES A DAY SOLD: 11/10/2020 [facility] 100,000 unit/gram 11/10/2020 12:00:00 AM EST cream 30 APPLY TO AFFECTED AREA(S) TWO TIMES A DAY APPLY TO AFFECTED AREA(S) TWO TIMES A DAY SOLD: 01/08/2021 [facility] Fluconazole 150 MG Oral Tablet Fluconazole 150 MG 11/10/2020 12:00: 00 AM EST 1.0 {tablet} active Fluconazole 150 MG eCW1 ([facility]) Fluconazole 150 MG Oral Tablet Fluconazole 150 MG 11/10/2020 12:00: 00 AM EST 1.0 {tablet} active Fluconazole 150 MG eCW1 ([facility]) 100,000 unit/gram 11/10/2020 12:00:00 AM EST cream 30 APPLY TO AFFECTED AREA(S) TWO TIMES A DAY APPLY TO AFFECTED AREA(S) TWO TIMES A DAY SOLD: 12/06/2020 [facility] Nystatin 530063 UNT/ML Topical Cream Nystatin 303833 U NIT/GM Nystatin 878571 UNIT/GM 11/10/2020 12:00:00 AM EST 1.0 {application} active Nystatin 366065 UNIT/GM eCW1 ([facility]) Fluconazole 150 MG Oral Tablet Fluconazole 150 MG 11/10/2020 12:00: 00 AM EST 1.0 {tablet} active Fluconazole 150 MG eCW1 ([facility]) Fluconazole 150 MG Oral Tablet Fluconazole 150 MG 11/10/2020 12:00: 00 AM EST 1.0 {tablet} active Fluconazole 150 MG eCW1 ([facility]) Fluconazole 150 MG Oral Tablet Fluconazole 150 MG 11/10/2020 12:00: 00 AM EST 1.0 {tablet} active Fluconazole 150 MG eCW1 ([facility]) 10 mg 11/08/2020 12:00:00 AM EST tablet 90 TAKE ONE TABLET BY MOUTH THREE TIMES A DAY FOR TREMORS TAKE ONE TABLET BY MOUTH THREE TIMES A DAY FOR TREMORS SOLD: 11/08/2020 [facility] 10 mg 11/08/2020 12:00:00 AM EST tablet 90 TAKE ONE TABLET BY MOUTH THREE TIMES A DAY FOR TREMORS TAKE ONE TABLET BY MOUTH THREE TIMES A DAY FOR TREMORS SOLD: 01/08/2021 [facility] 150 mg 11/08/2020 12:00:00 AM EST capsule,extended releas e 24hr 60 TAKE ONE CAPSULE BY MOUTH EVERY MORNING AND 1 AT 1P.M. TAKE ONE CAPSULE BY MOUTH EVERY MORNING AND 1 AT 1P.M. SOLD: 11/08/2020 [facility] Dextran 70 1 MG/ML / hypromellose 3 MG/M L Ophthalmic Solution [Bion Tears] 0.1- 0.3 % DEXTRAN 70/HYPROMELLOSE/PF 11/01/2020 12:00:00 AM EST dropperette 112 INSTILL 1 DROP INTO BOTH EYES FOUR TIMES A DAY DIRECTED INSTILL 1 DROP INTO BOTH EYES FOUR TIMES A DAY DIRECTED SOLD: 03/16/2021 [facility] Dextran 70 1 MG/ML / hypromellose 3 MG/M L Ophthalmic Solution [Bion Tears] 0.1- 0.3 % DEXTRAN 70/HYPROMELLOSE/PF 11/01/2020 12:00:00 AM EST dropperette 112 INSTILL 1 DROP INTO BOTH EYES FOUR TIMES A DAY DIRECTED INSTILL 1 DROP INTO BOTH EYES FOUR TIMES A DAY DIRECTED SOLD: 01/18/2021 [facility] Dextran 70 1 MG/ML / hypromellose 3 MG/M L Ophthalmic Solution [Bion Tears] 0.1- 0.3 % DEXTRAN 70/HYPROMELLOSE/PF 11/01/2020 12:00:00 AM EST dropperette 112 INSTILL 1 DROP INTO BOTH EYES FOUR TIMES A DAY DIRECTED INSTILL 1 DROP INTO BOTH EYES FOUR TIMES A DAY DIRECTED SOLD: 02/16/2021 [facility] Dextran 70 1 MG/ML / hypromellose 3 MG/M L Ophthalmic Solution [Bion Tears] 0.1- 0.3 % DEXTRAN 70/HYPROMELLOSE/PF 11/01/2020 12:00:00 AM EST dropperette 112 INSTILL 1 DROP INTO BOTH EYES FOUR TIMES A DAY DIRECTED INSTILL 1 DROP INTO BOTH EYES FOUR TIMES A DAY DIRECTED SOLD: 05/12/2021 [facility] Dextran 70 1 MG/ML / hypromellose 3 MG/M L Ophthalmic Solution [Bion Tears] 0.1- 0.3 % DEXTRAN 70/HYPROMELLOSE/PF 11/01/2020 12:00:00 AM EST dropperette 112 INSTILL 1 DROP INTO BOTH EYES FOUR TIMES A DAY DIRECTED INSTILL 1 DROP INTO BOTH EYES FOUR TIMES A DAY DIRECTED SOLD: 04/13/2021 [facility] Dextran 70 1 MG/ML / hypromellose 3 MG/M L Ophthalmic Solution [Bion Tears] 0.1- 0.3 % DEXTRAN 70/HYPROMELLOSE/PF 11/01/2020 12:00:00 AM EST dropperette 112 INSTILL 1 DROP INTO BOTH EYES FOUR TIMES A DAY DIRECTED INSTILL 1 DROP INTO BOTH EYES FOUR TIMES A DAY DIRECTED SOLD: 06/09/2021 [facility] Dextran 70 1 MG/ML / hypromellose 3 MG/M L Ophthalmic Solution [Bion Tears] 0.1- 0.3 % DEXTRAN 70/HYPROMELLOSE/PF 11/01/2020 12:00:00 AM EST dropperette 112 INSTILL 1 DROP INTO BOTH EYES FOUR TIMES A DAY DIRECTED INSTILL 1 DROP INTO BOTH EYES FOUR TIMES A DAY DIRECTED SOLD: 11/08/2020 [facility] Dextran 70 1 MG/ML / hypromellose 3 MG/M L Ophthalmic Solution [Bion Tears] 0.1- 0.3 % DEXTRAN 70/HYPROMELLOSE/PF 11/01/2020 12:00:00 AM EST dropperette 112 INSTILL 1 DROP INTO BOTH EYES FOUR TIMES A DAY DIRECTED INSTILL 1 DROP INTO BOTH EYES FOUR TIMES A DAY DIRECTED SOLD: 12/20/2020 [facility] 0.005 % 10/22/2020 12:00:00 AM EST drops 2 INSTILL 1 DROP INTO BOTH EYES AT BEDTIME INSTILL 1 DROP INTO BOTH EYES AT BEDTIME SOLD: 11/19/2020 [facility] 0.005 % 10/22/2020 12:00:00 AM EST drops 2 INSTILL 1 DROP INTO BOTH EYES AT BEDTIME INSTILL 1 DROP INTO BOTH EYES AT BEDTIME SOLD: 01/17/2021 [facility] 0.005 % 10/22/2020 12:00:00 AM EST drops 2 INSTILL 1 DROP INTO BOTH EYES AT BEDTIME INSTILL 1 DROP INTO BOTH EYES AT BEDTIME SOLD: 12/20/2020 [facility] 0.005 % 10/22/2020 12:00:00 AM EST drops 2 INSTILL 1 DROP INTO BOTH EYES AT BEDTIME INSTILL 1 DROP INTO BOTH EYES AT BEDTIME SOLD: 10/24/2020 [facility] 800 mg 10/20/2020 12:00:00 AM EST tablet 90 TAKE ONE TABLET BY MOUTH THREE TIMES A DAY TAKE ONE TABLET BY MOUTH THREE TIMES A DAY SOLD: 12/20/2020 [facility] 800 mg 10/20/2020 12:00:00 AM EST tablet 90 TAKE ONE TABLET BY MOUTH THREE TIMES A DAY TAKE ONE TABLET BY MOUTH THREE TIMES A DAY SOLD: 10/20/2020 [facility] 800 mg 10/20/2020 12:00:00 AM EST tablet 90 TAKE ONE TABLET BY MOUTH THREE TIMES A DAY TAKE ONE TABLET BY MOUTH THREE TIMES A DAY SOLD: 11/19/2020 [facility] 50 mcg/actuation 10/20/2020 12:00:00 AM EST spray,suspension 16 SPRAY 2 SPRAYS IN EACH NOSTRIL ONCE DAILY SPRAY 2 SPRAYS IN EACH NOSTRIL ONCE DAILY SOLD: 10/20/2020 [facility] 50 mcg/actuation 10/20/2020 12:00:00 AM EST spray,suspension 16 SPRAY 2 SPRAYS IN EACH NOSTRIL ONCE DAILY SPRAY 2 SPRAYS IN EACH NOSTRIL ONCE DAILY SOLD: 12/20/2020 [facility] 50 mcg/actuation 10/20/2020 12:00:00 AM EST spray,suspension 16 SPRAY 2 SPRAYS IN EACH NOSTRIL ONCE DAILY SPRAY 2 SPRAYS IN EACH NOSTRIL ONCE DAILY SOLD: 11/19/2020 [facility] 50 mcg/actuation 10/20/2020 12:00:00 AM EST spray,suspension 16 SPRAY 2 SPRAYS IN EACH NOSTRIL ONCE DAILY SPRAY 2 SPRAYS IN EACH NOSTRIL ONCE DAILY SOLD: 02/14/2021 [facility] Fluticasone propionate 0.05 MG/ACTUAT Metered Dose [facility] 50 mcg/actuation FLUTICASONE PROPIONATE 10/20/2020 12:00:00 AM EST spray,suspension 16 SPRAY 2 SPRAYS IN EACH NOSTRIL ONCE DAILY SPRAY 2 SPRAYS IN EACH NOSTRIL ONCE DAILY SOLD: 04/05/2021 [facility] 50 mcg/actuation 10/20/2020 12:00:00 AM EST spray,suspension 16 SPRAY 2 SPRAYS IN EACH NOSTRIL ONCE DAILY SPRAY 2 SPRAYS IN EACH NOSTRIL ONCE DAILY SOLD: 01/17/2021 [facility] atorvastatin 10 MG Oral Tablet ATORVASTATIN CALCIUM 10/19/2020 1 2:00:00 AM EST tablet 30 TAKE 1 TABLET BY MOUTH AT 5:00PM TAKE 1 T ABLET BY MOUTH AT 5:00PM SOLD: 02/14/2021 [facility] Potassium Chloride 10 MEQ Extended Release Oral Tablet POTAS SIUM CHLORIDE 10/19/2020 12:00:00 AM EST tablet extended release 60 TAKE ONE TABLET BY MOUTH TWICE A DAY AT 8 A.M. AND 5 P.M. TAKE ONE TABLET BY MOUTH TWICE A DAY AT 8 A.M. AND 5 P.M. SOLD: 10/19/2020 [facility] Potassium Chloride 10 MEQ Extended Release Oral Tablet POTAS SIUM CHLORIDE 10/19/2020 12:00:00 AM EST tablet extended release 60 TAKE ONE TABLET BY MOUTH TWICE A DAY AT 8 A.M. AND 5 P.M. TAKE ONE TABLET BY MOUTH TWICE A DAY AT 8 A.M. AND 5 P.M. SOLD: 12/20/2020 [facility] 100 unit/mL 10/19/2020 12:00:00 AM EST solution 10 INJECT PER SLIDING SCALE UNDER THE SKIN THREE TIMES A DAY MAXIMUM DAILY DOSE = 50 UNITS INJECT PER SLIDING SCALE UNDER THE SKIN THREE TIMES A DAY MAXIMUM DAILY DOSE = 50 UNITS SOLD: 12/05/2020 [facility] 100 unit/mL 10/19/2020 12:00:00 AM EST solution 10 INJECT PER SLIDING SCALE UNDER THE SKIN THREE TIMES A DAY MAXIMUM DAILY DOSE = 50 UNITS INJECT PER SLIDING SCALE UNDER THE SKIN THREE TIMES A DAY MAXIMUM DAILY DOSE = 50 UNITS SOLD: 01/08/2021 [facility] 1.5 mg/0.5 mL 10/19/2020 12:00:00 AM EST pen injector 2 INJECT 1.5MG UNDER THE SKIN WEEKLY INJECT 1.5MG UNDER THE SKIN WEEKLY SOLD: 11/19/2020 [facility] 10 mg 10/19/2020 12:00:00 AM EST tablet 30 TAKE ONE TABLET BY MOUTH EVERY MORNING AT 8 A.M. TAKE ONE TABLET BY MOUTH EVERY MORNING AT 8 A.M. SOLD: 10/19/2020 [facility] 81 mg 10/19/2020 12:00:00 AM EST tablet,delayed release (DR/EC) 30 TAKE 1 TABLET BY MOUTH AT 8:00AM TAKE 1 TABLET BY MOUTH AT 8:00AM SOLD: 12/20/2020 [facility] 20 mg 10/19/2020 12:00:00 AM EST capsule,delayed release (DR/EC) 30 TAKE ONE CAPSULE BY MOUTH EVERY MORNING AT 8 A.M. TAKE ONE CAPSULE BY MOUTH EVERY MORNING AT 8 A.M. SOLD: 01/17/2021 [facility] 88 mcg 10/19/2020 12:00:00 AM EST tablet 30 TAKE ONE TABLET BY MOUTH EVERY MORNING AT 8 A.M. TAKE ONE TABLET BY MOUTH EVERY MORNING AT 8 A.M. SOLD: 10/19/2020 [facility] 10 mg 10/19/2020 12:00:00 AM EST tablet 30 TAKE ONE TABLET BY MOUTH EVERY MORNING AT 8 A.M. TAKE ONE TABLET BY MOUTH EVERY MORNING AT 8 A.M. SOLD: 12/20/2020 [facility] 100 unit/mL 10/19/2020 12:00:00 AM EST solution 10 INJECT PER SLIDING SCALE UNDER THE SKIN THREE TIMES A DAY MAXIMUM DAILY DOSE = 50 UNITS INJECT PER SLIDING SCALE UNDER THE SKIN THREE TIMES A DAY MAXIMUM DAILY DOSE = 50 UNITS SOLD: 12/22/2020 [facility] 3 ML Insulin Glargine 100 UNT/ML Pen Injector [Basagla r] 100 unit/mL (3 mL) INSULIN GLARGINE,[email or web address] 10/19/2020 12:00:00 AM EST insulin pen 15 INJECT 12 UNITS UNDER THE SKIN EVERY MORNING AND 26 UNITS EVERY EVENING MAXIMUM DAILY DOSE = 50 UNITS INJECT 12 UNITS UNDER THE SKIN EVERY MOR KELBY AND 26 UNITS EVERY EVENING MAXIMUM DAILY DOSE = 50 UNITS SOLD: 03/14/2021 [facility] 81 mg 10/19/2020 12:00:00 AM EST tablet,delayed release (DR/EC) 30 TAKE 1 TABLET BY MOUTH AT 8:00AM TAKE 1 TABLET BY MOUTH AT 8:00AM SOLD: 11/19/2020 [facility] 3 ML Insulin Glargine 100 UNT/ML Pen Injector [Basagla r] 100 unit/mL (3 mL) INSULIN GLARGINE,[email or web address] 10/19/2020 12:00:00 AM EST insulin pen 15 INJECT 12 UNITS UNDER THE SKIN EVERY MORNING AND 26 UNITS EVERY EVENING MAXIMUM DAILY DOSE = 50 UNITS INJECT 12 UNITS UNDER THE SKIN EVERY MOR KELBY AND 26 UNITS EVERY EVENING MAXIMUM DAILY DOSE = 50 UNITS SOLD: 01/17/2021 [facility] 15 mg 10/19/2020 12:00:00 AM EST tablet 30 TAKE ONE TABLET BY MOUTH EVERY MORNING AT 8 A.M. TAKE ONE TABLET BY MOUTH EVERY MORNING AT 8 A.M. SOLD: 11/19/2020 [facility] 1 mg 10/19/2020 12:00:00 AM EST tablet 30 TAKE ONE TABLET BY MOUTH EVERY DAY AT 5 P.M. TAKE ONE TABLET BY MOUTH EVERY DAY AT 5 P.M. SOLD: 11/19/2020 [facility] 10 mg 10/19/2020 12:00:00 AM EST tablet 30 TAKE ONE TABLET BY MOUTH EVERY MORNING AT 8 A.M. TAKE ONE TABLET BY MOUTH EVERY MORNING AT 8 A.M. SOLD: 01/17/2021 [facility] 88 mcg 10/19/2020 12:00:00 AM EST tablet 30 TAKE ONE TABLET BY MOUTH EVERY MORNING AT 8 A.M. TAKE ONE TABLET BY MOUTH EVERY MORNING AT 8 A.M. SOLD: 12/20/2020 [facility] 50 mg 10/19/2020 12:00:00 AM EST tablet 60 TAKE ONE TABLET BY MOUTH TWICE A DAY NEEDED TAKE ONE TABLET BY MOUTH TWICE A DAY NEEDED SOLD: 10/19/2020 [facility] 20 mg 10/19/2020 12:00:00 AM EST capsule,delayed release (DR/EC) 30 TAKE ONE CAPSULE BY MOUTH EVERY MORNING AT 8 A.M. TAKE ONE CAPSULE BY MOUTH EVERY MORNING AT 8 A.M. SOLD: 10/19/2020 [facility] 10 mg 10/19/2020 12:00:00 AM EST tablet 30 TAKE ONE TABLET BY MOUTH EVERY MORNING AT 8 A.M. TAKE ONE TABLET BY MOUTH EVERY MORNING AT 8 A.M. SOLD: 03/14/2021 [facility] 88 mcg 10/19/2020 12:00:00 AM EST tablet 30 TAKE ONE TABLET BY MOUTH EVERY MORNING AT 8 A.M. TAKE ONE TABLET BY MOUTH EVERY MORNING AT 8 A.M. SOLD: 11/19/2020 [facility] 15 mg 10/19/2020 12:00:00 AM EST tablet 30 TAKE ONE TABLET BY MOUTH EVERY MORNING AT 8 A.M. TAKE ONE TABLET BY MOUTH EVERY MORNING AT 8 A.M. SOLD: 12/20/2020 [facility] 3 ML Insulin Glargine 100 UNT/ML Pen Injector [Basagla r] 100 unit/mL (3 mL) INSULIN GLARGINE,[email or web address] 10/19/2020 12:00:00 AM EST insulin pen 15 INJECT 12 UNITS UNDER THE SKIN EVERY MORNING AND 26 UNITS EVERY EVENING MAXIMUM DAILY DOSE = 50 UNITS INJECT 12 UNITS UNDER THE SKIN EVERY MOR KELBY AND 26 UNITS EVERY EVENING MAXIMUM DAILY DOSE = 50 UNITS SOLD: 02/14/2021 [facility] 81 mg 10/19/2020 12:00:00 AM EST tablet,delayed release (DR/EC) 30 TAKE 1 TABLET BY MOUTH AT 8:00AM TAKE 1 TABLET BY MOUTH AT 8:00AM SOLD: 10/19/2020 [facility] 1 mg 10/19/2020 12:00:00 AM EST tablet 30 TAKE ONE TABLET BY MOUTH EVERY DAY AT 5 P.M. TAKE ONE TABLET BY MOUTH EVERY DAY AT 5 P.M. SOLD: 12/20/2020 [facility] 15 mg 10/19/2020 12:00:00 AM EST tablet 30 TAKE ONE TABLET BY MOUTH EVERY MORNING AT 8 A.M. TAKE ONE TABLET BY MOUTH EVERY MORNING AT 8 A.M. SOLD: 10/19/2020 [facility] 100 unit/mL 10/19/2020 12:00:00 AM EST solution 10 INJECT PER SLIDING SCALE UNDER THE SKIN THREE TIMES A DAY MAXIMUM DAILY DOSE = 50 UNITS INJECT PER SLIDING SCALE UNDER THE SKIN THREE TIMES A DAY MAXIMUM DAILY DOSE = 50 UNITS SOLD: 11/08/2020 [facility] atorvastatin 10 MG Oral Tablet ATORVASTATIN CALCIUM 10/19/2020 1 2:00:00 AM EST tablet 30 TAKE 1 TABLET BY MOUTH AT 5:00PM TAKE 1 T ABLET BY MOUTH AT 5:00PM SOLD: 01/17/2021 [facility] Potassium Chloride 10 MEQ Extended Release Oral Tablet POTAS SIUM CHLORIDE 10/19/2020 12:00:00 AM EST tablet extended release 60 TAKE ONE TABLET BY MOUTH TWICE A DAY AT 8 A.M. AND 5 P.M. TAKE ONE TABLET BY MOUTH TWICE A DAY AT 8 A.M. AND 5 P.M. SOLD: 11/19/2020 [facility] 1 mg 10/19/2020 12:00:00 AM EST tablet 30 TAKE ONE TABLET BY MOUTH EVERY DAY AT 5 P.M. TAKE ONE TABLET BY MOUTH EVERY DAY AT 5 P.M. SOLD: 10/19/2020 [facility] 10 mg 10/19/2020 12:00:00 AM EST tablet 30 TAKE ONE TABLET BY MOUTH EVERY MORNING AT 8 A.M. TAKE ONE TABLET BY MOUTH EVERY MORNING AT 8 A.M. SOLD: 02/14/2021 [facility] 100 unit/mL 10/19/2020 12:00:00 AM EST solution 10 INJECT PER SLIDING SCALE UNDER THE SKIN THREE TIMES A DAY MAXIMUM DAILY DOSE = 50 UNITS INJECT PER SLIDING SCALE UNDER THE SKIN THREE TIMES A DAY MAXIMUM DAILY DOSE = 50 UNITS SOLD: 10/19/2020 [facility] 20 mg 10/19/2020 12:00:00 AM EST capsule,delayed release (DR/EC) 30 TAKE ONE CAPSULE BY MOUTH EVERY MORNING AT 8 A.M. TAKE ONE CAPSULE BY MOUTH EVERY MORNING AT 8 A.M. SOLD: 11/19/2020 [facility] 81 mg 10/19/2020 12:00:00 AM EST tablet,delayed release (DR/EC) 30 TAKE 1 TABLET BY MOUTH AT 8:00AM TAKE 1 TABLET BY MOUTH AT 8:00AM SOLD: 02/14/2021 [facility] 100 unit/mL (3 mL) 10/19/2020 12:00:00 AM EST insulin pen 15 INJECT 12 UNITS UNDER THE SKIN EVERY MORNING AND 26 UNITS EVERY EVENING MAXIMUM DAILY DOSE = 50 UNITS INJECT 12 UNITS UNDER THE SKIN EVERY MOR KELBY AND 26 UNITS EVERY EVENING MAXIMUM DAILY DOSE = 50 UNITS SOLD: 10/19/2020 [facility] 20 mg 10/19/2020 12:00:00 AM EST capsule,delayed release (DR/EC) 30 TAKE ONE CAPSULE BY MOUTH EVERY MORNING AT 8 A.M. TAKE ONE CAPSULE BY MOUTH EVERY MORNING AT 8 A.M. SOLD: 12/20/2020 [facility] 100 unit/mL (3 mL) 10/19/2020 12:00:00 AM EST insulin pen 15 INJECT 12 UNITS UNDER THE SKIN EVERY MORNING AND 26 UNITS EVERY EVENING MAXIMUM DAILY DOSE = 50 UNITS INJECT 12 UNITS UNDER THE SKIN EVERY MOR KELBY AND 26 UNITS EVERY EVENING MAXIMUM DAILY DOSE = 50 UNITS SOLD: 12/20/2020 [facility] 50 mcg (2,000 unit) 10/19/2020 12:00:00 AM EST tablet 30 TAKE ONE TABLET BY MOUTH EVERY MORNING AT 8 A.M. TAKE ONE TABLET BY MOUTH EVERY MORNING AT 8 A.M. SOLD: 12/20/2020 [facility] 325 mg (65 mg iron) 10/19/2020 12:00:00 AM EST tablet 14 TAKE ONE TABLET BY MOUTH EVERY OTHER DAY AT 8 A.M. TAKE ONE TABLET BY MOUTH EVERY OTHER DAY AT 8 A.M. SOLD: 11/14/2020 [facility] 5 mg 10/19/2020 12:00:00 AM EST tablet 28 TAKE ONE TABLET BY MOUTH EVERY DAY AT 5 P.M. TAKE ONE TABLET BY MOUTH EVERY DAY AT 5 P.M. SOLD: 12/20/2020 [facility] 5 mg 10/19/2020 12:00:00 AM EST tablet 28 TAKE ONE TABLET BY MOUTH EVERY DAY AT 5 P.M. TAKE ONE TABLET BY MOUTH EVERY DAY AT 5 P.M. SOLD: 10/19/2020 [facility] 50 mcg (2,000 unit) 10/19/2020 12:00:00 AM EST tablet 30 TAKE ONE TABLET BY MOUTH EVERY MORNING AT 8 A.M. TAKE ONE TABLET BY MOUTH EVERY MORNING AT 8 A.M. SOLD: 10/19/2020 [facility] 100 unit/mL (3 mL) 10/19/2020 12:00:00 AM EST insulin pen 15 INJECT 12 UNITS UNDER THE SKIN EVERY MORNING AND 26 UNITS EVERY EVENING MAXIMUM DAILY DOSE = 50 UNITS INJECT 12 UNITS UNDER THE SKIN EVERY MOR KELBY AND 26 UNITS EVERY EVENING MAXIMUM DAILY DOSE = 50 UNITS SOLD: 11/19/2020 [facility] 81 mg 10/19/2020 12:00:00 AM EST tablet,delayed release (DR/EC) 30 TAKE 1 TABLET BY MOUTH AT 8:00AM TAKE 1 TABLET BY MOUTH AT 8:00AM SOLD: 01/17/2021 [facility] 50 mcg (2,000 unit) 10/19/2020 12:00:00 AM EST tablet 30 TAKE ONE TABLET BY MOUTH EVERY MORNING AT 8 A.M. TAKE ONE TABLET BY MOUTH EVERY MORNING AT 8 A.M. SOLD: 11/19/2020 [facility] 100 unit/mL 10/19/2020 12:00:00 AM EST solution 10 INJECT PER SLIDING SCALE UNDER THE SKIN THREE TIMES A DAY MAXIMUM DAILY DOSE = 50 UNITS INJECT PER SLIDING SCALE UNDER THE SKIN THREE TIMES A DAY MAXIMUM DAILY DOSE = 50 UNITS SOLD: 01/26/2021 [facility] 10 mg 10/19/2020 12:00:00 AM EST tablet 30 TAKE ONE TABLET BY MOUTH EVERY MORNING AT 8 A.M. TAKE ONE TABLET BY MOUTH EVERY MORNING AT 8 A.M. SOLD: 11/19/2020 [facility] Potassium Chloride 10 MEQ Extended Release Oral Tablet POTAS SIUM CHLORIDE 10/19/2020 12:00:00 AM EST tablet extended release 60 TAKE ONE TABLET BY MOUTH TWICE A DAY AT 8 A.M. AND 5 P.M. TAKE ONE TABLET BY MOUTH TWICE A DAY AT 8 A.M. AND 5 P.M. SOLD: 02/14/2021 [facility] 325 mg (65 mg iron) 10/19/2020 12:00:00 AM EST tablet 14 TAKE ONE TABLET BY MOUTH EVERY OTHER DAY AT 8 A.M. TAKE ONE TABLET BY MOUTH EVERY OTHER DAY AT 8 A.M. SOLD: 10/19/2020 [facility] atorvastatin 10 MG Oral Tablet ATORVASTATIN CALCIUM 10/19/2020 1 2:00:00 AM EST tablet 30 TAKE 1 TABLET BY MOUTH AT 5:00PM TAKE 1 T ABLET BY MOUTH AT 5:00PM SOLD: 10/19/2020 [facility] 5 mg 10/19/2020 12:00:00 AM EST tablet 28 TAKE ONE TABLET BY MOUTH EVERY DAY AT 5 P.M. TAKE ONE TABLET BY MOUTH EVERY DAY AT 5 P.M. SOLD: 11/14/2020 [facility] 81 mg 10/19/2020 12:00:00 AM EST tablet,delayed release (DR/EC) 30 TAKE 1 TABLET BY MOUTH AT 8:00AM TAKE 1 TABLET BY MOUTH AT 8:00AM SOLD: 04/05/2021 [facility] atorvastatin 10 MG Oral Tablet ATORVASTATIN CALCIUM 10/19/2020 1 2:00:00 AM EST tablet 30 TAKE 1 TABLET BY MOUTH AT 5:00PM TAKE 1 T ABLET BY MOUTH AT 5:00PM SOLD: 11/19/2020 [facility] Potassium Chloride 10 MEQ Extended Release Oral Tablet POTAS SIUM CHLORIDE 10/19/2020 12:00:00 AM EST tablet extended release 60 TAKE ONE TABLET BY MOUTH TWICE A DAY AT 8 A.M. AND 5 P.M. TAKE ONE TABLET BY MOUTH TWICE A DAY AT 8 A.M. AND 5 P.M. SOLD: 03/14/2021 [facility] Potassium Chloride 10 MEQ Extended Release Oral Tablet POTAS SIUM CHLORIDE 10/19/2020 12:00:00 AM EST tablet extended release 60 TAKE ONE TABLET BY MOUTH TWICE A DAY AT 8 A.M. AND 5 P.M. TAKE ONE TABLET BY MOUTH TWICE A DAY AT 8 A.M. AND 5 P.M. SOLD: 01/17/2021 [facility] 1.5 mg/0.5 mL 10/19/2020 12:00:00 AM EST pen injector 2 INJECT 1.5MG UNDER THE SKIN WEEKLY INJECT 1.5MG UNDER THE SKIN WEEKLY SOLD: 10/19/2020 [facility] 1.5 mg/0.5 mL 10/19/2020 12:00:00 AM EST pen injector 2 INJECT 1.5MG UNDER THE SKIN WEEKLY INJECT 1.5MG UNDER THE SKIN WEEKLY SOLD: 12/20/2020 [facility] atorvastatin 10 MG Oral Tablet ATORVASTATIN CALCIUM 10/19/2020 1 2:00:00 AM EST tablet 30 TAKE 1 TABLET BY MOUTH AT 5:00PM TAKE 1 T ABLET BY MOUTH AT 5:00PM SOLD: 12/20/2020 [facility] 1 mg 10/16/2020 12:00:00 AM EST tablet 90 TAKE ONE TABLET BY MOUTH THREE TIMES A DAY MAXIMUM DAILY DOSE = 3 TABLETS TAKE ONE TABLET BY MOUTH THREE TIMES A DAY MAXIMUM DAILY DOSE = 3 TABLETS SOLD: 10/17/2020 [facility] 10 mg 10/13/2020 12:00:00 AM EST tablet 90 TAKE ONE TABLET BY MOUTH THREE TIMES A DAY FOR TREMORS TAKE ONE TABLET BY MOUTH THREE TIMES A DAY FOR TREMORS SOLD: 12/05/2020 [facility] 10 mg 10/13/2020 12:00:00 AM EST tablet 90 TAKE ONE TABLET BY MOUTH THREE TIMES A DAY FOR TREMORS TAKE ONE TABLET BY MOUTH THREE TIMES A DAY FOR TREMORS SOLD: 10/13/2020 [facility] 150 mg 10/12/2020 12:00:00 AM EST capsule,extended releas e 24hr 60 TAKE 1 CAPSULE BY MOUTH EVERY MORNING AND 1 CAPSULE AT 1:00PM TAKE 1 CAPSULE BY MOUTH EVERY MORNING AND 1 CAPSULE AT 1:00PM SOLD: 10/13/2020 [facility] Naproxen 500 MG Oral Tablet Naproxen 07/22/2020 12:00:00 AM EST ORAL active [facility] ([facility], ) Nystatin [id number] UNT/ML Topical Cream nys tatin 100,000 unit/gram topical cream APPLY 1 APPLICATION EXTERNALLY TO AFFECTED AREA S TWICE A DAY FOR 14 DAYS nystatin 100,000 unit/gram topical cream APPLY 1 APPLICATION EXTERNALLY TO AFFECTED AREA S TWICE A DAY FOR 14 DAYS completed nystatin 548750 UNT/ML Topical Cream BREONNA ([facility]) [place] 9 mg tablet [id number] completed deutetrabenazine 9 MG Oral Tablet [Austedo] BREONNA ([facility]) vitamin d3 50 mcg (1999 ut) tabs completed vitamin d3 50 mcg (1999 ut) tabs BREONNA ([facility]) Hydrocortisone 10 MG/ML / Neomycin 3.5 M G/ML / Polymyxin B 35584 UNT/ML Otic Solution ewqygvbo-ehcupyejh-udmsxamud 3.5 mg/mL-10,000 unit/mL-1 % ear solution jydlwldq-bzcmlqkkg-dhzrlvyeo 3.5 mg/mL-10,000 unit/mL-1 % ear solution completed hydrocortisone 10 MG/ML / neomycin 3.5 MG/ML / polymyxin B 16085 UNT/ML Otic Solution BREONNA ([facility]) aripiprazole 20 MG Oral Tablet aripipraz ole 20 mg tablet TAKE 1/2 TABLET BY MOUTH @8AM and TAKE 1/2 TABLET BY MOUTH @5PM aripiprazole 20 mg tablet TAKE 1/2 TABLET BY MOUTH @8AM and TAKE 1/2 TABLET BY MOUTH @5PM completed aripiprazole 20 MG Oral Tablet [facility] ([facility]) Ondansetron 4 MG Oral Tablet ondansetron HCl 4 mg tabl et ondansetron HCl 4 mg tablet completed ondansetron 4 M G Oral Tablet BREONNA ([facility]) Meclizine Hydrochloride 25 MG Oral Tablet meclizine 25 mg tablet meclizine 25 mg tablet completed meclizine hydr ochloride 25 MG Oral Tablet BREONNA ([facility]) Amoxicillin 875 MG Oral Tablet amoxicillin 875 mg tabl et amoxicillin 875 mg tablet completed amoxicillin 875 MG Oral Tablet BREONNA ([facility]) [place] 12 mg tablet [id number] completed deutetrabenazine 12 MG Oral Tablet [Austedo] BREONNA ([facility]) Citalopram 40 MG Oral Tablet citalopram 40 mg tablet TAKE ONE TABLET BY MOUTH @8AM citalopram 40 mg tablet TAKE ONE TABLET BY MOUTH @8AM completed citalopram 40 MG Oral Tablet [facility] ([facility]) [place] 9 mg tablet [id number] completed deutetrabenazine 9 MG Oral Tablet [Austedo] BREONNA ([facility]) [place] 9 mg tablet [id number] completed deutetrabenazine 9 MG Oral Tablet [Austedo] BREONNA ([facility]) Hydroxyzine Hydrochloride 50 MG Oral Tablet hydroxyzin e HCl 50 mg tablet hydroxyzine HCl 50 mg tablet completed hydroxyzine hydrochloride 50 MG Oral Tablet BREONNA ([facility]) Cephalexin 500 MG Oral Capsule cephalexin 500 mg capsu le cephalexin 500 mg capsule completed cephalexin 500 MG Oral Capsule BREONNA ([facility]) Bacitracin 0.4 UNT/MG / Neomycin 0.0035 MG/MG / Polymyxin B 5 UNT/MG Topical Ointment Triple Antibiotic 3.5 mg-400 unit-5,000 unit/gram topical ointment Triple Antibiotic 3.5 mg-400 unit-5,000 unit/gram topical ointment completed bacitracin 0.4 UNT/M G / neomycin 0.0035 MG/MG / polymyxin B 5 UNT/MG Topical Ointment BREONNA ([facility]) aripiprazole 15 MG Oral Tablet aripipraz ole 15 mg tablet TAKE ONE TABLET BY MOUTH @8PM aripiprazole 15 mg tablet TAKE ONE TABLET BY MOUTH @8PM completed aripiprazole 15 MG Oral Tablet Valeria THENA ([facility]) Amoxicillin 875 MG / Clavulanate 125 MG Oral Tablet amoxicillin 875 mg-potassium clavulanate 125 mg tablet amoxicillin 875 mg-potassium clavulanate 125 mg tablet completed amoxici llin 875 MG / clavulanate 125 MG Oral Tablet BREONNA ([facility]) Nystatin [id number] UNT/ML Topical Cream nys tatin 100,000 unit/gram topical cream APPLY 1 APPLICATION EXTERNALLY TO AFFECTED AREA S TWICE A DAY FOR 14 DAYS nystatin 100,000 unit/gram topical cream APPLY 1 APPLICATION EXTERNALLY TO AFFECTED AREA S TWICE A DAY FOR 14 DAYS completed nystatin [id number] UNT/ML Topical Cream BREONNA ([facility]) [place] 12 mg tablet [id number] completed deutetrabenazine 12 MG Oral Tablet [Austedo] BREONNA ([facility]) Cyclobenzaprine hydrochloride 10 MG Oral Tablet cyclob enzaprine 10 mg tablet cyclobenzaprine 10 mg tablet completed cyclobenzaprine hydrochloride 10 MG Oral Tablet BREONNA ([facility]) Cephalexin 500 MG Oral Capsule cephalexin 500 mg capsu le cephalexin 500 mg capsule completed cephalexin 500 MG Oral Capsule BREONNA ([facility]) [place] 12 mg tablet [id number] completed deutetrabenazine 12 MG Oral Tablet [Austedo] BREONNA ([facility]) Meclizine Hydrochloride 25 MG Oral Tablet meclizine 25 mg tablet meclizine 25 mg tablet completed meclizine hydr ochloride 25 MG Oral Tablet BREON[facility] ([facility]) 24 HR venlafaxine 37.5 MG Extended Relea se Oral Capsule venlafaxine ER 37.5 mg capsule,extended release 24 hr TAKE ONE CAPSULE BY MOUTH ONCE DAILY WITH DINNER venlafaxine ER 37.5 mg capsule,extended release 24 hr TAKE ONE CAPSULE BY MOUTH ONCE DAILY WITH DINNER completed 24 HR venlafaxine 37.5 MG Extended Release Oral Capsule BREONNA ([facility]) Hydroxyzine Hydrochloride 50 MG Oral Tablet hydroxyzin e HCl 50 mg tablet hydroxyzine HCl 50 mg tablet completed hydroxyzine hydrochloride 50 MG Oral Tablet BREONNA ([facility]) Phenazopyridine hydrochloride 200 MG Ora l Tablet phenazopyridine 200 mg tablet TAKE ONE TABLET BY MOUTH THREE TIMES A DAY FOR 2 DAYS phenazopyridine 200 mg tablet TAKE ONE TABLET BY MOUTH THREE TIMES A DAY FOR 2 DAYS completed phenazopyridine hydrochloride 20 0 MG Oral Tablet BREONNA ([facility]) Fluconazole 150 MG Oral Tablet fluconazole 150 mg tabl et fluconazole 150 mg tablet completed fluconazole 150 MG Oral Tablet [facility] ([facility]) 24 HR venlafaxine 37.5 MG Extended Relea se Oral Capsule venlafaxine ER 37.5 mg capsule,extended release 24 hr TAKE ONE CAPSULE BY MOUTH ONCE DAILY WITH DINNER venlafaxine ER 37.5 mg capsule,extended release 24 hr TAKE ONE CAPSULE BY MOUTH ONCE DAILY WITH DINNER completed 24 HR venlafaxine 37.5 MG Extended Release Oral Capsule [facility] ([facility]) Citalopram 40 MG Oral Tablet citalopram 40 mg tablet TAKE ONE TABLET BY MOUTH @8AM citalopram 40 mg tablet TAKE ONE TABLET BY MOUTH @8AM completed citalopram 40 MG Oral Tablet [facility] ([facility]) 24 HR venlafaxine 150 MG Extended Releas e Oral Capsule venlafaxine ER 150 mg capsule,extended release 24 hr TAKE 1 CAPSULE BY MOUTH EVERY MORNING AND 1 CAPSULE AT 1 P.M. venlafaxine ER 150 mg capsule,extended r elease 24 hr TAKE 1 CAPSULE BY MOUTH EVERY MORNING AND 1 CAPSULE AT 1 P.M. completed 24 HR venlafaxine 150 MG Extended Release Oral Capsule BREONNA ([facility]) 24 HR venlafaxine 75 MG Extended Release Oral Capsule venlafaxine ER 75 mg capsule,extended release 24 hr venlafaxine ER 75 mg capsule,extended re lease 24 hr completed 24 HR v enlafaxine 75 MG Extended Release Oral Capsule BREONNA ([facility]) Ondansetron 4 MG Oral Tablet ondansetron HCl 4 mg tabl et ondansetron HCl 4 mg tablet completed ondansetron 4 M G Oral Tablet [facility] ([facility]) Ranitidine 150 MG Oral Tablet ranitidine 150 mg tablet ranit idine 150 mg tablet completed ranitidine 150 MG Oral Tablet BREON[facility] ([facility]) [place] 6 mg tablet [id number] completed deutetrabenazine 6 MG Oral Tablet [Austedo] BREONNA ([facility]) Bacitracin 0.4 UNT/MG / Neomycin 0.0035 MG/MG / Polymyxin B 5 UNT/MG Topical Ointment Triple Antibiotic 3.5 mg-400 unit-5,000 unit/gram topical ointment Triple Antibiotic 3.5 mg-400 unit-5,000 unit/gram topical ointment completed bacitracin 0.4 UNT/M G / neomycin 0.0035 MG/MG / polymyxin B 5 UNT/MG Topical Ointment BREONNA ([facility]) cefdinir 300 MG Oral Capsule cefdinir 30 0 mg capsule TAKE ONE CAPSULE BY MOUTH EVERY 12 HOURS FOR 7 DAYS cefdinir 300 mg capsule TAKE ONE CAPSULE BY MOUTH EVERY 12 HOURS FOR 7 DAYS completed cefdinir 300 MG Oral Capsule BREONNA ([facility]) [place] 9 mg tablet [id number] completed deutetrabenazine 9 MG Oral Tablet [Austedo] BREONNA ([facility]) Hydroxyzine Hydrochloride 25 MG Oral Tablet hydroxyzin e HCl 25 mg tablet hydroxyzine HCl 25 mg tablet completed hydroxyzine hydrochloride 25 MG Oral Tablet BREON[facility] ([facility]) cefdinir 300 MG Oral Capsule cefdinir 30 0 mg capsule TAKE ONE CAPSULE BY MOUTH EVERY 12 HOURS FOR 7 DAYS cefdinir 300 mg capsule TAKE ONE CAPSULE BY MOUTH EVERY 12 HOURS FOR 7 DAYS completed cefdinir 300 MG Oral Capsule BREONNA ([facility]) aripiprazole 20 MG Oral Tablet aripipraz ole 20 mg tablet TAKE 1/2 TABLET BY MOUTH @8AM and TAKE 1/2 TABLET BY MOUTH @5PM aripiprazole 20 mg tablet TAKE 1/2 TABLET BY MOUTH @8AM and TAKE 1/2 TABLET BY MOUTH @5PM completed aripiprazole 20 MG Oral Tablet BREONNA ([facility]) 24 HR venlafaxine 37.5 MG Extended Relea se Oral Capsule venlafaxine ER 37.5 mg capsule,extended release 24 hr TAKE ONE CAPSULE BY MOUTH ONCE DAILY WITH DINNER venlafaxine ER 37.5 mg capsule,extended release 24 hr TAKE ONE CAPSULE BY MOUTH ONCE DAILY WITH DINNER completed 24 HR venlafaxine 37.5 MG Extended Release Oral Capsule BREONNA ([facility]) cefdinir 300 MG Oral Capsule cefdinir 30 0 mg capsule TAKE ONE CAPSULE BY MOUTH EVERY 12 HOURS FOR 7 DAYS cefdinir 300 mg capsule TAKE ONE CAPSULE BY MOUTH EVERY 12 HOURS FOR 7 DAYS completed cefdinir 300 MG Oral Capsule [facility] ([facility]) Cyclobenzaprine hydrochloride 10 MG Oral Tablet cyclob enzaprine 10 mg tablet cyclobenzaprine 10 mg tablet completed cyclobenzaprine hydrochloride 10 MG Oral Tablet [facility] ([facility]) Ranitidine 150 MG Oral Tablet ranitidine 150 mg tablet ranit idine 150 mg tablet completed ranitidine 150 MG Oral Tablet [facility] ([facility]) Citalopram 20 MG Oral Tablet citalopram 20 mg tablet citalopram 20 mg tablet completed citalopram 20 MG Oral Tablet [facility] ([facility]) Hydroxyzine Hydrochloride 25 MG Oral Tablet hydroxyzin e HCl 25 mg tablet hydroxyzine HCl 25 mg tablet completed hydroxyzine hydrochloride 25 MG Oral Tablet [facility] ([facility]) Amoxicillin 875 MG / Clavulanate 125 MG Oral Tablet amoxicillin 875 mg-potassium clavulanate 125 mg tablet amoxicillin 875 mg-potassium clavulanate 125 mg tablet completed amoxici llin 875 MG / clavulanate 125 MG Oral Tablet [facility] ([facility]) Phenazopyridine hydrochloride 200 MG Ora l Tablet phenazopyridine 200 mg tablet TAKE ONE TABLET BY MOUTH THREE TIMES A DAY FOR 2 DAYS phenazopyridine 200 mg tablet TAKE ONE TABLET BY MOUTH THREE TIMES A DAY FOR 2 DAYS completed phenazopyridine hydrochloride 20 0 MG Oral Tablet [facility] ([facility]) montelukast 10 MG Oral Tablet montelukast 10 mg tablet monte lukast 10 mg tablet completed montelukast 10 MG Oral Tablet [facility] ([facility]) Hydroxyzine Hydrochloride 50 MG Oral Tablet hydroxyzin e HCl 50 mg tablet hydroxyzine HCl 50 mg tablet completed hydroxyzine hydrochloride 50 MG Oral Tablet [facility] ([facility]) Azithromycin 250 MG Oral Tablet azithromycin 250 mg ta blet azithromycin 250 mg tablet completed azithromycin 25 0 MG Oral Tablet [facility]) aripiprazole 15 MG Oral Tablet aripipraz ole 15 mg tablet TAKE ONE TABLET BY MOUTH @8PM aripiprazole 15 mg tablet TAKE ONE TABLET BY MOUTH @8PM completed aripiprazole 15 MG Oral Tablet A THENA ([facility]) Naproxen 500 MG Oral Tablet naproxen 500 mg tablet naproxen 500 mg ta blet completed naproxen 500 MG Oral Tablet [facility] ([facility]) Cephalexin 500 MG Oral Capsule cephalexin 500 mg capsu le cephalexin 500 mg capsule completed cephalexin 500 MG Oral Capsule [facility] ([facility]) vitamin d3 50 mcg (1999) tabs completed vitamin d3 50 mcg (1999) tabs BREONNA ([facility]) Hydrocortisone 10 MG/ML / Neomycin 3.5 M G/ML / Polymyxin B 36890 UNT/ML Otic Solution kpttkyvt-nmkeuzydk-lzshnftmo 3.5 mg/mL-10,000 unit/mL-1 % ear solution zmkqfwhz-adwrzftwi-jqzzavbxp 3.5 mg/mL-10,000 unit/mL-1 % ear solution completed hydrocortisone 10 MG/ML / neomycin 3.5 MG/ML / polymyxin B 06155 UNT/ML Otic Solution BREONNA ([facility]) Hydroxyzine Hydrochloride 25 MG Oral Tablet hydroxyzin e HCl 25 mg tablet hydroxyzine HCl 25 mg tablet completed hydroxyzine hydrochloride 25 MG Oral Tablet [facility] ([facility]) Cephalexin 500 MG Oral Capsule cephalexi n 500 mg capsule TAKE ONE CAPSULE BY MOUTH THREE TIMES A DAY FOR 7 DAYS cephalexin 500 mg capsule TAKE ONE CAPSU LE BY MOUTH THREE TIMES A DAY FOR 7 DAYS co mpleted cephalexin 500 MG Oral Capsule [facility] ([facility]) Citalopram 20 MG Oral Tablet citalopram 20 mg tablet citalopram 20 mg tablet completed citalopram 20 MG Oral Tablet [facility] ([facility]) Amoxicillin 875 MG / Clavulanate 125 MG Oral Tablet amoxicillin 875 mg-potassium clavulanate 125 mg tablet amoxicillin 875 mg-potassium clavulanate 125 mg tablet completed amoxici llin 875 MG / clavulanate 125 MG Oral Tablet [facility] ([facility]) aripiprazole 15 MG Oral Tablet aripipraz ole 15 mg tablet TAKE ONE TABLET BY MOUTH @8PM aripiprazole 15 mg tablet TAKE ONE TABLET BY MOUTH @8PM completed aripiprazole 15 MG Oral Tablet A THENA ([facility]) Hydrochlorothiazide 25 MG Oral Tablet hy drochlorothiazide 25 mg tablet TAKE ONE TABLET BY MOUTH @8AM hydrochlorothiazide 25 mg tablet TAKE ON E TABLET BY MOUTH @8AM completed hydrochlorothiaz syed 25 MG Oral Tablet BREON[facility] ([facility]) montelukast 10 MG Oral Tablet montelukast 10 mg tablet monte lukast 10 mg tablet completed montelukast 10 MG Oral Tablet BREON[facility] ([facility]) cetirizine hydrochloride 10 MG Oral Tabl et cetirizine 10 mg tablet TAKE ONE TABLET BY MOUTH EVERY MORNING AT 8 A.M. cetirizine 10 mg tablet TAKE ONE TABLET BY MOUTH EVERY MORNING AT 8 A.M. compl eted cetirizine hydrochloride 10 MG Oral Tablet BREONNA ([facility]) atorvastatin 10 MG Oral Tablet atorvasta tin 10 mg tablet TAKE 1 TABLET BY MOUTH AT 5 00PM atorvastatin 10 mg tablet TAKE 1 TABLET BY MOUTH AT 5 00PM completed atorvastatin 10 MG Oral Tabl et BREONNA ([facility]) Bacitracin 0.4 UNT/MG / Neomycin 0.0035 MG/MG / Polymyxin B 5 UNT/MG Topical Ointment Triple Antibiotic 3.5 mg-400 unit-5,000 unit/gram topical ointment Triple Antibiotic 3.5 mg-400 unit-5,000 unit/gram topical ointment completed bacitracin 0.4 UNT/M G / neomycin 0.0035 MG/MG / polymyxin B 5 UNT/MG Topical Ointment BREONNA ([facility]) Hydroxyzine Hydrochloride 25 MG Oral Tablet hydroxyzin e HCl 25 mg tablet hydroxyzine HCl 25 mg tablet completed hydroxyzine hydrochloride 25 MG Oral Tablet BRE[facility] ([facility]) Citalopram 20 MG Oral Tablet citalopram 20 mg tablet citalopram 20 mg tablet completed citalopram 20 MG Oral Tablet BRE[facility] ([facility]) Ranitidine 150 MG Oral Tablet ranitidine 150 mg tablet ranit idine 150 mg tablet completed ranitidine 150 MG Oral Tablet BRE[facility] ([facility]) Nystatin [id number] UNT/ML Topical Cream nys tatin 100,000 unit/gram topical cream APPLY 1 APPLICATION EXTERNALLY TO AFFECTED AREA S TWICE A DAY FOR 14 DAYS nystatin 100,000 unit/gram topical cream APPLY 1 APPLICATION EXTERNALLY TO AFFECTED AREA S TWICE A DAY FOR 14 DAYS completed nystatin 325202 UNT/ML Topical Cream BREONNA ([facility]) Hydrocortisone 10 MG/ML / Neomycin 3.5 M G/ML / Polymyxin B 15517 UNT/ML Otic Solution btmhsenr-adcnlugwb-hisumhjtc 3.5 mg/mL-10,000 unit/mL-1 % ear solution njcqzytz-oxtgqlmbq-nrhaokyqw 3.5 mg/mL-10,000 unit/mL-1 % ear solution completed hydrocortisone 10 MG/ML / neomycin 3.5 MG/ML / polymyxin B 54426 UNT/ML Otic Solution BREONNA ([facility]) [place] 6 mg tablet [id number] completed deutetrabenazine 6 MG Oral Tablet [Austedo] BREONNA ([facility]) Ranitidine 150 MG Oral Tablet ranitidine 150 mg tablet ranit idine 150 mg tablet completed ranitidine 150 MG Oral Tablet BREON[facility] ([facility]) Hydrocortisone 10 MG/ML / Neomycin 3.5 M G/ML / Polymyxin B 68452 UNT/ML Otic Solution yxvbfcpt-zjtqltxiy-ahnjjqnei 3.5 mg/mL-10,000 unit/mL-1 % ear solution mchlhgvs-dqkazlwso-rorsarhez 3.5 mg/mL-10,000 unit/mL-1 % ear solution completed hydrocortisone 10 MG/ML / neomycin 3.5 MG/ML / polymyxin B 82989 UNT/ML Otic Solution BREONNA ([facility]) 24 HR venlafaxine 37.5 MG Extended Relea se Oral Capsule venlafaxine ER 37.5 mg capsule,extended release 24 hr TAKE ONE CAPSULE BY MOUTH ONCE DAILY WITH DINNER venlafaxine ER 37.5 mg capsule,extended release 24 hr TAKE ONE CAPSULE BY MOUTH ONCE DAILY WITH DINNER completed 24 HR venlafaxine 37.5 MG Extended Release Oral Capsule BREONNA ([facility]) Amoxicillin 875 MG / Clavulanate 125 MG Oral Tablet amoxicillin 875 mg-potassium clavulanate 125 mg tablet amoxicillin 875 mg-potassium clavulanate 125 mg tablet completed amoxici llin 875 MG / clavulanate 125 MG Oral Tablet BREON[facility] ([facility]) [place] 6 mg tablet [id number] completed deutetrabenazine 6 MG Oral Tablet [Austedo] BREONNA ([facility]) atorvastatin 10 MG Oral Tablet atorvasta tin 10 mg tablet TAKE 1 TABLET BY MOUTH AT 5 00PM atorvastatin 10 mg tablet TAKE 1 TABLET BY MOUTH AT 5 00PM completed atorvastatin 10 MG Oral Tabl et [facility] ([facility]) Azithromycin 250 MG Oral Tablet azithromycin 250 mg ta blet azithromycin 250 mg tablet completed azithromycin 25 0 MG Oral Tablet [facility] ([facility]) aripiprazole 20 MG Oral Tablet aripipraz ole 20 mg tablet TAKE 1/2 TABLET BY MOUTH @8AM and TAKE 1/2 TABLET BY MOUTH @5PM aripiprazole 20 mg tablet TAKE 1/2 TABLET BY MOUTH @8AM and TAKE 1/2 TABLET BY MOUTH @5PM completed aripiprazole 20 MG Oral Tablet [facility] ([facility]) Bacitracin 0.4 UNT/MG / Neomycin 0.0035 MG/MG / Polymyxin B 5 UNT/MG Topical Ointment Triple Antibiotic 3.5 mg-400 unit-5,000 unit/gram topical ointment Triple Antibiotic 3.5 mg-400 unit-5,000 unit/gram topical ointment completed bacitracin 0.4 UNT/M G / neomycin 0.0035 MG/MG / polymyxin B 5 UNT/MG Topical Ointment [facility] ([facility]) aripiprazole 20 MG Oral Tablet aripipraz ole 20 mg tablet TAKE 1/2 TABLET BY MOUTH @8AM and TAKE 1/2 TABLET BY MOUTH @5PM aripiprazole 20 mg tablet TAKE 1/2 TABLET BY MOUTH @8AM and TAKE 1/2 TABLET BY MOUTH @5PM completed aripiprazole 20 MG Oral Tablet [facility] ([facility]) Amoxicillin 875 MG Oral Tablet amoxicillin 875 mg tabl et amoxicillin 875 mg tablet completed amoxicillin 875 MG Oral Tablet [facility] ([facility]) [place] 12 mg tablet [id number] completed deutetrabenazine 12 MG Oral Tablet [Austedo] BREONNA ([facility]) aripiprazole 20 MG Oral Tablet aripipraz ole 20 mg tablet TAKE 1/2 TABLET BY MOUTH @8AM and TAKE 1/2 TABLET BY MOUTH @5PM aripiprazole 20 mg tablet TAKE 1/2 TABLET BY MOUTH @8AM and TAKE 1/2 TABLET BY MOUTH @5PM completed aripiprazole 20 MG Oral Tablet [facility] ([facility]) Azithromycin 250 MG Oral Tablet azithromycin 250 mg ta blet azithromycin 250 mg tablet completed azithromycin 25 0 MG Oral Tablet [facility] ([facility]) aripiprazole 15 MG Oral Tablet aripipraz ole 15 mg tablet TAKE ONE TABLET BY MOUTH @8PM aripiprazole 15 mg tablet TAKE ONE TABLET BY MOUTH @8PM completed aripiprazole 15 MG Oral Tablet A THENA ([facility]) Amoxicillin 875 MG Oral Tablet amoxicillin 875 mg tabl et amoxicillin 875 mg tablet completed amoxicillin 875 MG Oral Tablet [facility] ([facility]) atorvastatin 10 MG Oral Tablet atorvasta tin 10 mg tablet TAKE 1 TABLET BY MOUTH AT 5 00PM atorvastatin 10 mg tablet TAKE 1 TABLET BY MOUTH AT 5 00PM completed atorvastatin 10 MG Oral Tabl et BRE[facility] ([facility]) [place] 6 mg tablet [id number] completed deutetrabenazine 6 MG Oral Tablet [Austedo] BREONNA ([facility]) Cephalexin 500 MG Oral Capsule cephalexin 500 mg capsu le cephalexin 500 mg capsule completed cephalexin 500 MG Oral Capsule [facility] ([facility]) Ondansetron 4 MG Oral Tablet ondansetron HCl 4 mg tabl et ondansetron HCl 4 mg tablet completed ondansetron 4 M G Oral Tablet [facility] ([facility]) Hydrochlorothiazide 25 MG Oral Tablet hy drochlorothiazide 25 mg tablet TAKE ONE TABLET BY MOUTH @8AM hydrochlorothiazide 25 mg tablet TAKE ON E TABLET BY MOUTH @8AM completed hydrochlorothiaz syed 25 MG Oral Tablet [facility] ([facility]) atorvastatin 10 MG Oral Tablet atorvasta tin 10 mg tablet TAKE 1 TABLET BY MOUTH AT 5 00PM atorvastatin 10 mg tablet TAKE 1 TABLET BY MOUTH AT 5 00PM completed atorvastatin 10 MG Oral Tabl et [facility] ([facility]) montelukast 10 MG Oral Tablet montelukast 10 mg tablet monte lukast 10 mg tablet completed montelukast 10 MG Oral Tablet [facility] ([facility]) [place] 6 mg tablet [id number] completed deutetrabenazine 6 MG Oral Tablet [Austedo] BREONNA ([facility]) montelukast 10 MG Oral Tablet montelukast 10 mg tablet monte lukast 10 mg tablet completed montelukast 10 MG Oral Tablet [facility] ([facility]) Hydroxyzine Hydrochloride 25 MG Oral Tablet hydroxyzin e HCl 25 mg tablet hydroxyzine HCl 25 mg tablet completed hydroxyzine hydrochloride 25 MG Oral Tablet [facility] ([facility]) Naproxen 500 MG Oral Tablet naproxen 500 mg tablet naproxen 500 mg ta blet completed naproxen 500 MG Oral Tablet [facility] ([facility]) aripiprazole 20 MG Oral Tablet aripipraz ole 20 mg tablet TAKE 1/2 TABLET BY MOUTH @8AM and TAKE 1/2 TABLET BY MOUTH @5PM aripiprazole 20 mg tablet TAKE 1/2 TABLET BY MOUTH @8AM and TAKE 1/2 TABLET BY MOUTH @5PM completed aripiprazole 20 MG Oral Tablet [facility] ([facility]) Citalopram 20 MG Oral Tablet citalopram 20 mg tablet citalopram 20 mg tablet completed citalopram 20 MG Oral Tablet [facility] ([facility]) aripiprazole 15 MG Oral Tablet aripipraz ole 15 mg tablet TAKE ONE TABLET BY MOUTH @8PM aripiprazole 15 mg tablet TAKE ONE TABLET BY MOUTH @8PM completed aripiprazole 15 MG Oral Tablet A THEN ([facility]) Hydroxyzine Hydrochloride 50 MG Oral Tablet hydroxyzin e HCl 50 mg tablet hydroxyzine HCl 50 mg tablet completed hydroxyzine hydrochloride 50 MG Oral Tablet BREON[facility] ([facility]) Azithromycin 250 MG Oral Tablet azithromycin 250 mg ta blet azithromycin 250 mg tablet completed azithromycin 25 0 MG Oral Tablet [facility] ([facility]) Amoxicillin 875 MG Oral Tablet amoxicillin 875 mg tabl et amoxicillin 875 mg tablet completed amoxicillin 875 MG Oral Tablet [facility] ([facility]) Ranitidine 150 MG Oral Tablet ranitidine 150 mg tablet ranit idine 150 mg tablet completed ranitidine 150 MG Oral Tablet [facility] ([facility]) Fluconazole 150 MG Oral Tablet fluconazole 150 mg tabl et fluconazole 150 mg tablet completed fluconazole 150 MG Oral Tablet [facility] ([facility]) aripiprazole 15 MG Oral Tablet aripipraz ole 15 mg tablet TAKE ONE TABLET BY MOUTH @8PM aripiprazole 15 mg tablet TAKE ONE TABLET BY MOUTH @8PM completed aripiprazole 15 MG Oral Tablet A THENA ([facility]) Ranitidine 150 MG Oral Tablet ranitidine 150 mg tablet ranit idine 150 mg tablet completed ranitidine 150 MG Oral Tablet [facility] ([facility]) 24 HR metoprolol succinate 50 MG Extende d Release Oral Tablet metoprolol succinate ER 50 mg tablet,extended release 24 hr metoprolol succinate ER 50 mg tablet,extended release 24 hr complete d 24 HR metoprolol succinate 50 MG Extended Release Oral Tablet [facility] ([facility]) [place] 9 mg tablet [id number] completed deutetrabenazine 9 MG Oral Tablet [A[facility]] [facility] [facility] 24 HR metoprolol succinate 50 MG Extende d Release Oral Tablet metoprolol succinate ER 50 mg tablet,extended release 24 hr metoprolol succinate ER 50 mg tablet,extended release 24 hr complete d 24 HR metoprolol succinate 50 MG Extended Release Oral Tablet [facility]) Azithromycin 250 MG Oral Tablet azithromycin 250 mg ta blet azithromycin 250 mg tablet completed azithromycin 25 0 MG Oral Tablet [facility] ([facility]) Hydroxyzine Hydrochloride 50 MG Oral Tablet hydroxyzin e HCl 50 mg tablet hydroxyzine HCl 50 mg tablet completed hydroxyzine hydrochloride 50 MG Oral Tablet [facility] ([facility]) 24 HR venlafaxine 150 MG Extended Releas e Oral Capsule venlafaxine ER 150 mg capsule,extended release 24 hr TAKE 1 CAPSULE BY MOUTH EVERY MORNING AND 1 CAPSULE AT 1 P.M. venlafaxine ER 150 mg capsule,extended r elease 24 hr TAKE 1 CAPSULE BY MOUTH EVERY MORNING AND 1 CAPSULE AT 1 P.M. completed 24 HR venlafaxine 150 MG Extended Release Oral Capsule [facility] ([facility]) montelukast 10 MG Oral Tablet montelukast 10 mg tablet monte lukast 10 mg tablet completed montelukast 10 MG Oral Tablet [facility] ([facility]) Amoxicillin 875 MG / Clavulanate 125 MG Oral Tablet amoxicillin 875 mg-potassium clavulanate 125 mg tablet amoxicillin 875 mg-potassium clavulanate 125 mg tablet completed amoxici llin 875 MG / clavulanate 125 MG Oral Tablet [place] ([facility]) Ondansetron 4 MG Oral Tablet ondansetron HCl 4 mg tabl et ondansetron HCl 4 mg tablet completed ondansetron 4 M G Oral Tablet [facility] ([facility]) Ondansetron 4 MG Oral Tablet ondansetron HCl 4 mg tabl et ondansetron HCl 4 mg tablet completed ondansetron 4 M G Oral Tablet [facility] ([facility]) Meclizine Hydrochloride 25 MG Oral Tablet meclizine 25 mg tablet meclizine 25 mg tablet completed meclizine hydr ochloride 25 MG Oral Tablet [facility] ([facility]) Austedo 12 mg tablet [id number] completed deutetrabenazine 12 MG Oral Tablet [Austedo] [facility] ([facility]) Amoxicillin 875 MG / Clavulanate 125 MG Oral Tablet amoxicillin 875 mg-potassium clavulanate 125 mg tablet amoxicillin 875 mg-potassium clavulanate 125 mg tablet completed amoxici llin 875 MG / clavulanate 125 MG Oral Tablet [facility] ([facility]) Meclizine Hydrochloride 25 MG Oral Tablet meclizine 25 mg tablet meclizine 25 mg tablet completed meclizine hydr ochloride 25 MG Oral Tablet [facility] ([facility]) 24 HR venlafaxine 37.5 MG Extended Relea se Oral Capsule venlafaxine ER 37.5 mg capsule,extended release 24 hr TAKE ONE CAPSULE BY MOUTH ONCE DAILY WITH DINNER venlafaxine ER 37.5 mg capsule,extended release 24 hr TAKE ONE CAPSULE BY MOUTH ONCE DAILY WITH DINNER completed 24 HR venlafaxine 37.5 MG Extended Release Oral Capsule [facility] ([facility]) Nystatin 572308 UNT/ML Topical Cream nys tatin 100,000 unit/gram topical cream APPLY 1 APPLICATION EXTERNALLY TO AFFECTED AREA S TWICE A DAY FOR 14 DAYS nystatin 100,000 unit/gram topical cream APPLY 1 APPLICATION EXTERNALLY TO AFFECTED AREA S TWICE A DAY FOR 14 DAYS completed nystatin 962215 UNT/ML Topical Cream [facility] ([facility]) cefdinir 300 MG Oral Capsule cefdinir 30 0 mg capsule TAKE ONE CAPSULE BY MOUTH EVERY 12 HOURS FOR 7 DAYS cefdinir 300 mg capsule TAKE ONE CAPSULE BY MOUTH EVERY 12 HOURS FOR 7 DAYS completed cefdinir 300 MG Oral Capsule [facility] ([facility]) Insurance Providers Payer name Policy type / Coverage type Policy ID Covered democrat ID Covered democrat's relationship to skinner Policy Skinner Plan Information [facility] [id number] SP [id number] [facility] CECY [id number] SP [id number] UNHC COMMUNITY PLAN MCDHMO [id number] SP [id number] [facility] CECY [id number] SP [id number] UNHC COMMUNITY PLAN MCDHMO [id number] SP [id number] MEDICAID [id number] SP [id number] UNHC COMMUNITY PLAN MCDHMO [id number] SP [id number] C I [id number] Self [id number] Medicaid S [id number] S [id number] Managed Care - Community Plan [facility] P [id number] S [id number] Medicaid S [id number] S [id number] UNHC COMMUNITY PLAN MCDHMO [id number] SP [id number] Managed Care - Community Plan [facility] P [id number] S [id number] Medicaid S [id number] S [id number] [facility] CECY [id number] SP [id number] Managed Care - UHC Community Plan P [id number] S [id number] UNHC COMMUNITY PLAN MCDHMO [id number] SP [id number] Managed Care - Community Plan [facility] P [id number] S [id number] UNHC COMMUNITY PLAN MCDHMO [id number] SP [id number] Medicaid S [id number] S [id number] Managed Care - UHC Community Plan P [id number] S [id number] MEDICAID P [id number] S [id number] [employer] [id number] SP [id number] [employer] PLAN [id number] SP [id number] HMO BLUE [id number] SP [id number] UNHC COMMUNITY PLAN MCDHMO [id number] SP [id number] [facility] [id number] SP [id number] [place] [id number] SP [id number] [facility](MCAID) O [id number] S [id number] MEDICAID [id number] SP [id number] [facility] Hmo Commercial [id number] Self [id number] [facility] [id number] Self [id number] [facility] [id number] [facility] [id number] Self [id number] [place] [id number] [facility] [id number] Self 1 [id number] [facility] [id number] Self 1 [id number] [facility] [id number] Self 1 [id number] Medicaid Dental O [id number] S [id number] [facility] [id number] SP [id number] [facility] (HMO) [id number] Self [id number] MEDICAID [id number] SP [id number] MEDICAID [id number] SP [id number] [facility] OFFICE OF MENTAL HEALTH [id number] S [id number] [facility] OFFICE OF MENTAL HEALTH [id number] S [id number] [facility] Hmo Commercial [id number] Self [facility](MCAID) P [id number] S [id number] Problems, Conditions, and Diagnoses Code Display Name Description Problem Type Effective Dates Data Source(s) 59440979 Essential hypertension Essential hypertension Problem 07/01/2021 12:00:00 AM EDT MEDJUAN A ([facility]) N92.0 6802931 Spotting Problem 05/09/2021 12:00:00 AM ED T eCW1 ([facility]) 239286175 Patient asked to attend Patient Asked to Attend [facility] 04/24/2021 12:00:00 AM EDT [place] ([facility]) 655069722 Body mass index 40+ - severely obese Bod y Mass Index 40+ - Severely Obese Problem 04/24/2021 12:00:00 AM EDT [facility] ([facility]) 583567706 Edema of lower extremity Edema of Lower Extremity Prob williams 04/24/2021 12:00:00 AM EDT [place] ([facility]) 625459130 Type II diabetes mellitus uncontrolled T ype II Diabetes Mellitus Uncontrolled Problem 04/24/2021 12:00:00 AM EDT [facility] ([facility]) 773816011 Patient asked to attend Patient Asked to Attend [facility] 04/24/2021 12:00:00 AM EDT [facility] ([facility]) 512411698 Body mass index 40+ - severely obese Bod y Mass Index 40+ - Severely Obese Problem 04/24/2021 12:00:00 AM EDT [facility] ([facility]) 918634102 Edema of lower extremity Edema of Lower Extremity Prob williams 04/24/2021 12:00:00 AM EDT [facility] ([facility]) 837003277 Type II diabetes mellitus uncontrolled T ype II Diabetes Mellitus Uncontrolled Problem 04/24/2021 12:00:00 AM EDT [facility] ([facility]) 871248139 Patient asked to attend Patient Asked to Attend [facility] 04/24/2021 12:00:00 AM EDT [place] ([facility]) 333560325 Body mass index 40+ - severely obese Bod y Mass Index 40+ - Severely Obese Problem 04/24/2021 12:00:00 AM EDT [facility] ([facility]) 992687364 Edema of lower extremity Edema of Lower Extremity Prob williams 04/24/2021 12:00:00 AM EDT [facility] ([facility]) 329968336 Type II diabetes mellitus uncontrolled T ype II Diabetes Mellitus Uncontrolled Problem 04/24/2021 12:00:00 AM EDT [facility] ([facility]) 550825588 Patient asked to attend Patient Asked to Attend Proble m 04/24/2021 12:00:00 AM EDT [facility] ([facility]) 517042038 Body mass index 40+ - severely obese Bod y Mass Index 40+ - Severely Obese Problem 04/24/2021 12:00:00 AM EDT [facility] ([facility]) 851837001 Edema of lower extremity Edema of Lower Extremity Prob williams 04/24/2021 12:00:00 AM EDT [facility] ([facility]) 359026187 Type II diabetes mellitus uncontrolled T ype II Diabetes Mellitus Uncontrolled Problem 04/24/2021 12:00:00 AM EDT [facility] ([facility]) 949442199 At risk - finding At Risk - Finding Problem 04/20 12:00:00 AM EDT [facility] ([facility]) 672360168 Low income Low Income Problem 04/20/2021 12:00:00 AM ED T [facility] ([facility]) 080947934 Food insecurity Food Insecurity Problem 04/20/2021 12:0 0:00 AM EDT [facility] ([facility]) 813343120 Food insecurity Food Insecurity Problem 04/20/2021 12:0 0:00 AM EDT [facility] ([facility]) 525739089 At risk - finding At Risk - Finding Problem 04/20 12:00:00 AM EDT [facility] ([facility]) 361108538 Low income Low Income Problem 04/20/2021 12:00:00 AM ED T [facility] ([facility]) 558903314 Food insecurity Food Insecurity Problem 04/20/2021 12:0 0:00 AM EDT [facility] ([facility]) 405575391 At risk - finding At Risk - Finding Problem 04/20 12:00:00 AM EDT [facility] ([facility]) 731425695 Low income Low Income Problem 04/20/2021 12:00:00 AM ED T [facility] ([facility]) 301469729 Food insecurity Food Insecurity Problem 04/20/2021 12:0 0:00 AM EDT [facility] ([facility]) 495609533 At risk - finding At Risk - Finding Problem 04/20 12:00:00 AM EDT [facility] ([facility]) 259981360 Low income Low Income Problem 04/20/2021 12:00:00 AM ED T [place] ([facility]) 769554383 Type 2 diabetes mellitus without complic ation Type 2 Diabetes Mellitus without Complication Problem 07/22/2020 12:00:00 AM EST [facility] ([facility]) 970280869 Type 2 diabetes mellitus without complic ation Type 2 Diabetes Mellitus without Complication Problem 07/22/2020 12:00:00 AM EST [facility] ([facility]) 591891314 Type 2 diabetes mellitus without complic ation Type 2 Diabetes Mellitus without Complication Problem 07/22/2020 12:00:00 AM EST [facility] ([facility]) 900056500 Type 2 diabetes mellitus without complic ation Type 2 Diabetes Mellitus without Complication Problem 07/22/2020 12:00:00 AM EST [facility] ([facility]) 128240962 Type 2 diabetes mellitus without complic ation Type 2 Diabetes Mellitus without Complication Problem 07/22/2020 12:00:00 AM EST [facility] ([facility]) 723942197 Type 2 diabetes mellitus without complic ation Type 2 Diabetes Mellitus without Complication Problem 07/22/2020 12:00:00 AM EST [facility] ([facility]) 438128260 Type 2 diabetes mellitus without complic ation Type 2 Diabetes Mellitus without Complication Problem 07/22/2020 12:00:00 AM EST [facility] ([facility]) 695.89 Intertrigo Intertrigo 06/01/2020 09:52:10 AM ED T [facility] 03661262 Intertrigo Intertrigo Problem 06/01/2020 12:0 0:00 AM EDT - 02/15/2021 12:00:00 AM EDT [facility] ([facility]) 96949100 Intertrigo Intertrigo Problem 06/01/2020 12:0 0:00 AM EDT - 02/15/2021 12:00:00 AM EDT [facility] ([facility]) 24958916 Intertrigo Intertrigo Problem 06/01/2020 12:0 0:00 AM EDT - 02/15/2021 12:00:00 AM EDT [facility] ([facility]) 11776173 Intertrigo Intertrigo Problem 06/01/2020 12:0 0:00 AM EDT - 02/15/2021 12:00:00 AM EDT [facility] ([facility]) 28633772 Intertrigo Intertrigo Problem 06/01/2020 12:00:00 AM ED T [facility] ([facility]) [id number] Intertrigo Intertrigo Problem 06/01/2020 12:0 0:00 AM EDT - 02/15/2021 12:00:00 AM EDT [facility] ([facility]) [id number] Pain radiating to lower abdomen Pain Radiating t o Lower Abdomen Problem 03/25/2020 12:00:00 AM EDT - 02/15/2021 12:00:00 AM ED T [facility] ([facility]) 28465598 Sinusitis Sinusitis Problem 03/25/2020 12:0 0:00 AM EDT - 02/15/2021 12:00:00 AM EDT [facility] ([facility]) 971392253 Pain radiating to lower abdomen Pain Radiating t o Lower Abdomen Problem 03/25/2020 12:00:00 AM EDT - 02/15/2021 12:00:00 AM ED T [facility] ([facility]) 16327522 Sinusitis Sinusitis Problem 03/25/2020 12:0 0:00 AM EDT - 02/15/2021 12:00:00 AM EDT [facility] ([facility]) 436496530 Pain radiating to lower abdomen Pain Radiating t o Lower Abdomen Problem 03/25/2020 12:00:00 AM EDT - 02/15/2021 12:00:00 AM ED T [facility] ([facility]) 28411338 Sinusitis Sinusitis Problem 03/25/2020 12:0 0:00 AM EDT - 02/15/2021 12:00:00 AM EDT [facility] ([facility]) 47328292 Sinusitis Sinusitis Problem 03/25/2020 12:0 0:00 AM EDT - 02/15/2021 12:00:00 AM EDT [facility] ([facility]) 257354632 Pain radiating to lower abdomen Pain Radiating t o Lower Abdomen Problem 03/25/2020 12:00:00 AM EDT - 02/15/2021 12:00:00 AM ED T [facility] ([facility]) 93465003 Sinusitis Sinusitis Problem 03/25/2020 12:0 0:00 AM EDT - 02/15/2021 12:00:00 AM EDT [facility] ([facility]) 800966973 Pain radiating to lower abdomen Pain Radiating t o Lower Abdomen Problem 03/25/2020 12:00:00 AM EDT - 02/15/2021 12:00:00 AM ED T [facility] ([facility]) [id number] Dizziness and giddiness Dizziness and Giddiness Proble 12/18/2019 12:00:00 AM EDT - 02/15/2021 12:00:00 AM EDT [facility] ([facility]) 386668445 Ingrowing nail Ingrowing Nail Problem 12/18/2019 12:00:00 AM EDT - 02/15/2021 12:00:00 AM EDT [facility] ([facility]) 067735030 Dizziness and giddiness Dizziness and Giddiness Proble m 12/18/2019 12:00:00 AM EDT - 02/15/2021 12:00:00 AM EDT [facility] ([facility]) 120255807 Ingrowing nail Ingrowing Nail Problem 12/18/2019 12:00:00 AM EDT - 02/15/2021 12:00:00 AM EDT [facility] ([facility]) 951101407 Dizziness and giddiness Dizziness and Giddiness Proble 12/18/2019 12:00:00 AM EDT - 02/15/2021 12:00:00 AM EDT [facility] ([facility]) [id number] Ingrowing nail Ingrowing Nail Problem 12/18/2019 12:00:00 AM EDT - 02/15/2021 12:00:00 AM EDT [facility] ([facility]) 346792013 Dizziness and giddiness Dizziness and Giddiness Proble m 12/18/2019 12:00:00 AM EDT - 02/15/2021 12:00:00 AM EDT [facility] ([facility]) 979769098 Ingrowing nail Ingrowing Nail Problem 12/18/2019 12:00:00 AM EDT - 02/15/2021 12:00:00 AM EDT [facility] ([facility]) 239429263 Dizziness and giddiness Dizziness and Giddiness Proble 12/18/2019 12:00:00 AM EDT - 02/15/2021 12:00:00 AM EDT [facility] ([facility]) 928986834 Ingrowing nail Ingrowing Nail Problem 12/18/2019 12:00:00 AM EDT - 02/15/2021 12:00:00 AM EDT [place] ([facility]) [id number] Knee pain Knee Pain Problem 03/07/2019 12:0 0:00 AM EDT - 02/15/2021 12:00:00 AM EDT [facility] ([facility]) 523225058 Finding of knee region Finding of Knee Region Problem 03/07/2019 12:00:00 AM EDT - 10/20/2020 12:00:00 AM EST [facility] ([facility]) [id number] Knee pain Knee Pain Problem 03/07/2019 12:0 0:00 AM EDT - 02/15/2021 12:00:00 AM EDT [facility] ([facility]) [id number] Finding of knee region Finding of Knee Region Problem 03/07/2019 12:00:00 AM EDT - 10/20/2020 12:00:00 AM EST [facility] ([facility]) [id number] Knee pain Knee Pain Problem 03/07/2019 12:0 0:00 AM EDT - 02/15/2021 12:00:00 AM EDT [facility] ([facility]) [id number] Finding of knee region Finding of Knee Region Problem 03/07/2019 12:00:00 AM EDT - 10/20/2020 12:00:00 AM EST [facility] ([facility]) [id number] Finding of knee region Finding of Knee Region Problem 03/07/2019 12:00:00 AM EDT - 10/20/2020 12:00:00 AM EST [facility] ([facility]) [id number] Finding of knee region Finding of Knee Region Problem 03/07/2019 12:00:00 AM EDT - 10/20/2020 12:00:00 AM EST [facility] ([facility]) [id number] Knee pain Knee Pain Problem 03/07/2019 12:0 0:00 AM EDT - 02/15/2021 12:00:00 AM EDT [facility] ([facility]) [id number] Finding of knee region Finding of Knee Region Problem 03/07/2019 12:00:00 AM EDT - 10/20/2020 12:00:00 AM EST [facility] ([facility]) [id number] Knee pain Knee Pain Problem 03/07/2019 12:0 0:00 AM EDT - 02/15/2021 12:00:00 AM EDT [facility] ([facility]) 622203402 Inflammatory dermatosis Inflammatory Dermatosis Proble 12/23/2018 12:00:00 AM EDT - 02/15/2021 12:00:00 AM EDT [facility] ([facility]) [id number] Inflammatory dermatosis Inflammatory Dermatosis Proble 12/23/2018 12:00:00 AM EDT - 02/15/2021 12:00:00 AM EDT [place] ([facility]) 386111904 Inflammatory dermatosis Inflammatory Dermatosis Proble 12/23/2018 12:00:00 AM EDT - 02/15/2021 12:00:00 AM EDT [place] ([facility]) [id number] Inflammatory dermatosis Inflammatory Dermatosis Proble 12/23/2018 12:00:00 AM EDT - 02/15/2021 12:00:00 AM EDT [facility] ([facility]) [id number] Inflammatory dermatosis Inflammatory Dermatosis Proble m 12/23/2018 12:00:00 AM EDT - 02/15/2021 12:00:00 AM EDT [facility] ([facility]) [id number] Obesity in mother complicating childbirt h Obesity in Mother Complicating Childbirth Problem 12/09/2018 12:00:00 AM EDT - 02/15/2021 12:00:00 AM EDT [facility] ([facility]) 767726271 Backache Backache Problem 12/09/2018 12:0 0:00 AM EDT - 02/15/2021 12:00:00 AM EDT [facility] ([facility]) [id number] Obesity in mother complicating childbirt h Obesity in Mother Complicating Childbirth Problem 12/09/2018 12:00:00 AM EDT - 02/15/2021 12:00:00 AM EDT [facility] ([facility]) [id number] Backache Backache Problem 12/09/2018 12:0 0:00 AM EDT - 02/15/2021 12:00:00 AM EDT [facility] ([facility]) [id number] Obesity in mother complicating childbirt h Obesity in Mother Complicating Childbirth Problem 12/09/2018 12:00:00 AM EDT - 02/15/2021 12:00:00 AM EDT [facility] ([facility]) 771021074 Backache Backache Problem 12/09/2018 12:0 0:00 AM EDT - 02/15/2021 12:00:00 AM EDT [facility] ([facility]) [id number] Obesity in mother complicating childbirt h Obesity in Mother Complicating Childbirth Problem 12/09/2018 12:00:00 AM EDT - 02/15/2021 12:00:00 AM EDT [facility] ([facility]) 163538753 Backache Backache Problem 12/09/2018 12:0 0:00 AM EDT - 02/15/2021 12:00:00 AM EDT [facility] ([facility]) [id number] Obesity in mother complicating childbirt h Obesity in Mother Complicating Childbirth Problem 12/09/2018 12:00:00 AM EDT - 02/15/2021 12:00:00 AM EDT [facility] ([facility]) 495364088 Backache Backache Problem 12/09/2018 12:0 0:00 AM EDT - 02/15/2021 12:00:00 AM EDT [facility] ([facility]) [id number] Syphilis test finding Syphilis Test Finding Problem 07/08/2018 12:00:00 AM EDT - 02/15/2021 12:00:00 AM EDT [place] ([facility]) [id number] Influenza vaccine needed Influenza Vaccine Needed Pro blem 07/08/2018 12:00:00 AM EDT - 02/15/2021 12:00:00 AM EDT [place] ([facility]) 817552419 Syphilis test finding Syphilis Test Finding Problem 07/08/2018 12:00:00 AM EDT - 02/15/2021 12:00:00 AM EDT [place] ([facility]) [id number] Influenza vaccine needed Influenza Vaccine Needed Pro blem 07/08/2018 12:00:00 AM EDT - 02/15/2021 12:00:00 AM EDT [place] ([facility]) 534198457 Syphilis test finding Syphilis Test Finding Problem 07/08/2018 12:00:00 AM EDT - 02/15/2021 12:00:00 AM EDT [place] ([facility]) 8573738926533 Influenza vaccine needed Influenza Vaccine Needed Pro blem 07/08/2018 12:00:00 AM EDT - 02/15/2021 12:00:00 AM EDT [place] ([facility]) [id number] Syphilis test finding Syphilis Test Finding Problem 07/08/2018 12:00:00 AM EDT - 02/15/2021 12:00:00 AM EDT [place] ([facility]) 2847770000302 Influenza vaccine needed Influenza Vaccine Needed Pro blem 07/08/2018 12:00:00 AM EDT - 02/15/2021 12:00:00 AM EDT [place] ([facility]) 292251059 Syphilis test finding Syphilis Test Finding Problem 07/08/2018 12:00:00 AM EDT - 02/15/2021 12:00:00 AM EDT [place] ([facility]) 5812174490486 Influenza vaccine needed Influenza Vaccine Needed Pro blem 07/08/2018 12:00:00 AM EDT - 02/15/2021 12:00:00 AM EDT [place] ([facility]) [id number] Pain in left knee Pain in Left Knee Problem 12:00:00 AM EDT - 02/15/2021 12:00:00 AM EDT [facility] ([facility]) [id number] Pain of left shoulder joint Pain of Left Shoul judit Joint Problem 12/27/2017 12:00:00 AM EDT - 02/15/2021 12:00:00 AM ED T [place] ([facility]) [id number] Pain in left knee Pain in Left Knee Problem 12:00:00 AM EDT - 02/15/2021 12:00:00 AM EDT [place] ([facility]) [id number] Pain of left shoulder joint Pain of Left Shoul judit Joint Problem 12/27/2017 12:00:00 AM EDT - 02/15/2021 12:00:00 AM ED Christos RAVI ([facility]) [id number] Pain in left knee Pain in Left Knee Problem 12:00:00 AM EDT - 02/15/2021 12:00:00 AM EDT [place] ([facility]) [id number] Pain of left shoulder joint Pain of Left Shoul judit Joint Problem 12/27/2017 12:00:00 AM EDT - 02/15/2021 12:00:00 AM ED Christos RAVI ([facility]) [id number] Pain in left knee Pain in Left Knee Problem 12:00:00 AM EDT - 02/15/2021 12:00:00 AM EDT [place] ([facility]) [id number] Pain of left shoulder joint Pain of Left Shoul judit Joint Problem 12/27/2017 12:00:00 AM EDT - 02/15/2021 12:00:00 AM ED Christos RAVI ([facility]) [id number] Pain in left knee Pain in Left Knee Problem 12:00:00 AM EDT - 02/15/2021 12:00:00 AM EDT [facility] ([facility]) [id number] Pain of left shoulder joint Pain of Left Shoul judit Joint Problem 12/27/2017 12:00:00 AM EDT - 02/15/2021 12:00:00 AM ED T [place] ([facility]) 3853618 Tinea pedis Tinea Pedis Problem 09/03/2017 12:0 0:00 AM EST - 02/15/2021 12:00:00 AM EDT [facility] ([facility]) [id number] Tinea pedis Tinea Pedis Problem 09/03/2017 12:0 0:00 AM EST - 02/15/2021 12:00:00 AM EDT [facility] ([facility]) [id number] Tinea pedis Tinea Pedis Problem 09/03/2017 12:0 0:00 AM EST - 02/15/2021 12:00:00 AM EDT [facility] ([facility]) [id number] Tinea pedis Tinea Pedis Problem 09/03/2017 12:0 0:00 AM EST - 02/15/2021 12:00:00 AM EDT [facility] ([facility]) [id number] Tinea pedis Tinea Pedis Problem 09/03/2017 12:0 0:00 AM EST - 02/15/2021 12:00:00 AM EDT [facility] ([facility]) 66610546 Cough Cough Problem 05/03/2017 12:0 0:00 AM EDT - 02/15/2021 12:00:00 AM EDT [facility] ([facility]) [id number] Cough Cough Problem 05/03/2017 12:0 0:00 AM EDT - 02/15/2021 12:00:00 AM EDT [facility] [facility] [id number] Cough Cough Problem 05/03/2017 12:0 0:00 AM EDT - 02/15/2021 12:00:00 AM EDT [facility] ([facility] er) [id number] Cough Cough Problem 05/03/2017 12:0 0:00 AM EDT - 02/15/2021 12:00:00 AM EDT [facility] ([facility] er) [id number] Cough Cough Problem 05/03/2017 12:0 0:00 AM EDT - 02/15/2021 12:00:00 AM EDT [facility] ([facility] er) [id number] Evaluation procedure Evaluation Procedure Problem 10/31/2016 12:00:00 AM EST - 10/20/2020 12:00:00 AM EST [facility] ([facility] er) [id number] Clinical finding Clinical Finding Problem 017 12:00:00 AM EST - 10/20/2020 12:00:00 AM EST [facility] ([facility] er) [id number] Exposure to second hand tobacco smoke Ex posure to Second Hand Tobacco Smoke Problem 10/31/2016 12:00:00 AM EST - 02/15/2021 12:00:00 AM EDT [facility] ([facility]) [id number] Idiopathic peripheral neuropathy Idiopathic Rosario pheral Neuropathy Problem 10/31/2016 12:00:00 AM EST - 02/15/2021 12:00:00 AM ED T [facility] ([facility]) [id number] Evaluation procedure Evaluation Procedure Problem 10/31/2016 12:00:00 AM EST - 10/20/2020 12:00:00 AM EST [facility] ([facility] er) [id number] Clinical finding Clinical Finding Problem 017 12:00:00 AM EST - 10/20/2020 12:00:00 AM EST [facility] ([facility] er) [id number] Exposure to second hand tobacco smoke Ex posure to Second Hand Tobacco Smoke Problem 10/31/2016 12:00:00 AM EST - 02/15/2021 12:00:00 AM EDT [facility] ([facility]) [id number] Idiopathic peripheral neuropathy Idiopathic Rosario pheral Neuropathy Problem 10/31/2016 12:00:00 AM EST - 02/15/2021 12:00:00 AM ED T [facility] ([facility]) [id number] Evaluation procedure Evaluation Procedure Problem 10/31/2016 12:00:00 AM EST - 10/20/2020 12:00:00 AM EST [facility] ([facility]) [id number] Clinical finding Clinical Finding Problem 017 12:00:00 AM EST - 10/20/2020 12:00:00 AM EST [facility] ([facility] er) [id number] Exposure to second hand tobacco smoke Ex posure to Second Hand Tobacco Smoke Problem 10/31/2016 12:00:00 AM EST - 02/15/2021 12:00:00 AM EDT [facility] ([facility]) [id number] Idiopathic peripheral neuropathy Idiopathic Rosario pheral Neuropathy Problem 10/31/2016 12:00:00 AM EST - 02/15/2021 12:00:00 AM ED T [facility] ([facility]) [id number] Evaluation procedure Evaluation Procedure Problem 10/31/2016 12:00:00 AM EST - 10/20/2020 12:00:00 AM EST [facility] ([facility]) [id number] Clinical finding Clinical Finding Problem 017 12:00:00 AM EST - 10/20/2020 12:00:00 AM EST [facility] ([facility] er) [id number] Evaluation procedure Evaluation Procedure Problem 10/31/2016 12:00:00 AM EST - 10/20/2020 12:00:00 AM EST [facility] ([facility]) [id number] Clinical finding Clinical Finding Problem 017 12:00:00 AM EST - 10/20/2020 12:00:00 AM EST [facility] ([facility]) [id number] Exposure to second hand tobacco smoke Ex posure to Second Hand Tobacco Smoke Problem 10/31/2016 12:00:00 AM EST - 02/15/2021 12:00:00 AM EDT [facility] ([facility]) [id number] Idiopathic peripheral neuropathy Idiopathic Rosario pheral Neuropathy Problem 10/31/2016 12:00:00 AM EST - 02/15/2021 12:00:00 AM ED T [facility] ([facility]) [id number] Evaluation procedure Evaluation Procedure Problem 10/31/2016 12:00:00 AM EST - 10/20/2020 12:00:00 AM EST [facility] ([facility]) [id number] Clinical finding Clinical Finding Problem 017 12:00:00 AM EST - 10/20/2020 12:00:00 AM EST [facility] ([facility]) [id number] Exposure to second hand tobacco smoke Ex posure to Second Hand Tobacco Smoke Problem 10/31/2016 12:00:00 AM EST - 02/15/2021 12:00:00 AM EDT [facility] ([facility]) [id number] Idiopathic peripheral neuropathy Idiopathic Rosario pheral Neuropathy Problem 10/31/2016 12:00:00 AM EST - 02/15/2021 12:00:00 AM ED T [facility] ([facility]) Surgeries/Procedures Procedure Description Date Indications Data Source(s) Diabetic Foot Exam 07/04/2021 12:00:00 AM EDT [facility] ([facility]) OFFICE OUTPATIENT NEW 60 MINUTES 07/04/2021 12:00:00 A M EDT [facility] ([facility]) Inject/Drain Arthrocentesis Major Joint/Bursa/Ganglion Cyst 07/22/2020 12:00:00 AM EST [facility] ([facility], ) X-Ray Shoulder Complete 07/22/2020 12:00:00 AM EST [facility] ([facility], ) RADEX SHOULDER COMPLETE MINIMUM 2 VIEWS 07/22/2020 12: 00:00 AM EST [facility] ([facility]) Results ID Date Data Source [id number] 07/04/2021 01:27:00 PM EDT [facility] ([facility]) Name Value Range Interpretation Code Description Data Shari rce(s) Supporting Document(s) Glucose [Mass/volume] in Serum or Plasma 127 [facility] ([facility]) Hemoglobin A1c/Hemoglobin.total in Blood 8.1 [facility] ([facility]) ID Date Data Source [id number] 05/10/2021 02:43:00 PM EDT [facility] ([facility]) Name Value Range Interpretation Code Description Data Shari rce(s) Supporting Document(s) HCG, serum qualitative negative negative HCG, Serum Qu alitative [facility] ([facility]) ID Date Data Source [id number] 05/10/2021 02:43:00 PM EDT [facility]) Name Value Range Interpretation Code Description Data Shari rce(s) Supporting Document(s) HCG, serum qualitative negative negative HCG, Serum Qu alitative [facility] ([facility]) ID Date Data Source HCG SERUM QUALITATIVE 05/10/2021 12:00:00 AM EDT eCW1 ([facility]) Name Value Range Interpretation Code Description Data Shari rce(s) Supporting Document(s) NEGATIVE NEGATIVE HCG, SERUM QUALITATIVE eC W1 ([facility]) ID Date Data Source [id number] 03/31/2021 03:53:00 PM EDT [facility] ([facility]) Name Value Range Interpretation Code Description Data Shari rce(s) Supporting Document(s) ID Date Data Source [id number] 03/31/2021 03:53:00 PM EDT [facility] ([facility]) Name Value Range Interpretation Code Description Data Shari rce(s) Supporting Document(s) appearance, urine manual clear clear Appearance, Urine Manual [facility]) pH,urine man 5.5 units 5.0 - 7.0 pH,urine Man [facility] ([facility]) color, urine manual yellow yellow Color, Urine Man ual [facility] ([facility]) specific gravity,urine manual 1.002-1.035 Above high normal Specific [place],urine Manual [facility] ([facility]) protein, urine manual negative negative Protein, Urine Manual [facility] ([facility]) ketone, urine manual negative negative Ketone, Urine M anual [facility] ([facility]) glucose, urine (UA) manual 4+(1000 mg/dL) negative Above high n ormal Glucose, Urine (UA) Manual [facility] ([facility]) bilirubin, urine manual negative negative Bilirubin, U rine Manual [facility]) urobilinogen, urine manual normal normal Urobilino gen, Urine Manual [facility] ([facility]) leukocyte esterase, urine man negative negative Leukoc yte Esterase, Urine Man [facility] ([facility]) nitrite, urine manual negative negative Nitrite, Urine Manual [facility] ([facility]) blood urine manual negative negative Blood Urine Manua l [facility] ([facility]) ID Date Data Source [id number] 03/31/2021 03:53:00 PM EDT [facility]) Name Value Range Interpretation Code Description Data Shari rce(s) Supporting Document(s) cholesterol level 147 mg/dL <200 Cholesterol Level [facility] ([facility]) triglycerides level 103 mg/dL <150 Triglycerides Le cheryl [facility] ([facility]) HDL cholesterol 43 mg/dL >40 HDL Cholesterol [facility] ([facility]) Cholesterol in LDL [Mass/volume] in Serum or Plasma 83 mg/dL <1 00 LDL Cholesterol [facility] ([facility]) cholesterol risk ratio <5 Cholesterol R isk Ratio [facility] ([facility]) non-HDL-C 104 mg/dL Non-hdl-c [facility] ([facility]) ID Date Data Source [id number] 03/31/2021 03:53:00 PM EDT [facility]) Name Value Range Interpretation Code Description Data Shari rce(s) Supporting Document(s) glucose, fasting 174 mg/dL 70-100 Above high normal Glucose, Fas ting [facility] ([facility]) blood urea nitrogen 11 mg/dL 7-18 Blood Urea Nitro gen [facility] ([facility]) creatinine for GFR 0.60 mg/dL 0.55-1.30 Creatinine for GF R [facility] ([facility]) sodium level 141 mEq/L 136-145 Sodium Level [facility] ([facility]) glomerular filtration rate > 60.0 >58 Glomerula r Filtration Rate [facility] ([facility]) potassium serum 4.2 mEq/L 3.5-5.1 Potassium Serum [facility] ([facility]) chloride level 108 mEq/L 98-107 Above high normal Chloride Level [facility] ([facility]) anion gap 6 mEq/L 8-16 Below low normal Anion Gap [facility] ( [facility]) carbon dioxide level 27 mEq/L 21-32 Carbon Dioxide Level [facility] ([facility]) AST/SGOT 55 U/L 7-37 Above high normal AST/SGOT [facility] ([facility]) calcium level 9.6 mg/dL 8.5-10.1 Calcium Level [facility] ( [facility]) alkaline phosphatase 117 U/L 45-117 Alkaline Phosph atase [facility] ([facility]) ALT/SGPT 95 U/L 12-78 Above high normal ALT/SGPT [facility] ([facility]) total protein 7.1 gm/dL 6.4-8.2 Total Protein [facility] ( [facility]) bilirubin,total 0.6 mg/dL 0.2-1.0 Bilirubin,total [facility] ([facility]) albumin/globulin ratio 1.2-2.2 Below low normal Albumin /globulin Ratio [facility] ([facility]) albumin 3.5 gm/dL 3.2-5.2 Albumin [facility] ([facility]) ID Date Data Source [id number] 03/31/2021 03:53:00 PM EDT [facility]) Name Value Range Interpretation Code Description Data Shari rce(s) Supporting Document(s) appearance, urine manual clear clear Appearance, Urine Manual [facility] ([facility]) pH,urine man 5.5 units 5.0 - 7.0 pH,urine Man [facility] ([facility]) color, urine manual yellow yellow Color, Urine Man ual [facility] ([facility]) specific gravity,urine manual 1.002-1.035 Above high normal Specific [place],urine Manual [facility]) protein, urine manual negative negative Protein, Urine Manual [facility] ([facility]) ketone, urine manual negative negative Ketone, Urine M anual [facility] ([facility]) glucose, urine (UA) manual 4+(1000 mg/dL) negative Above high n ormal Glucose, Urine (UA) Manual [facility] ([facility]) bilirubin, urine manual negative negative Bilirubin, U rine Manual [facility] ([facility]) urobilinogen, urine manual normal normal Urobilino gen, Urine Manual [facility] ([facility]) leukocyte esterase, urine man negative negative Leukoc yte Esterase, Urine Man [facility] ([facility]) nitrite, urine manual negative negative Nitrite, Urine Manual [facility] ([facility]) blood urine manual negative negative Blood Urine Manua l [facility] ([facility]) ID Date Data Source [id number] 03/31/2021 03:53:00 PM EDT [facility] ([facility]) Name Value Range Interpretation Code Description Data Shari rce(s) Supporting Document(s) Hemoglobin A1c/Hemoglobin.total in Blood 9.3 % Hemoglobin a1C [facility] ([facility]) estimated average glucose 220 mg/dL 60-110 Above high norm al Estimated Average Glucose [facility] ([facility]) ID Date Data Source [id number] 03/31/2021 03:53:00 PM EDT [facility] ([facility]) Name Value Range Interpretation Code Description Data Shari rce(s) Supporting Document(s) white blood count 8.0 10 4.0-10.0 White Blood Count [facility] ([facility]) red blood count 4.90 10 4.00-5.40 Red Blood Count [facility] ([facility]) hemoglobin 13.9 g/dL 12.0-15.5 Hemoglobin [facility] ([facility]) hematocrit 43.0 % 36.0-47.0 Hematocrit [facility] ([facility]) mean corpuscular volume 87.8 fL 80.0-96.0 Mean Corpusc ular Volume [facility] ([facility]) mean corpuscular hemoglobin 28.4 pg 27.0-33.0 Mean Cor puscular Hemoglobin [facility] ([facility]) mean corpuscular HGB conc 32.3 g/dL 32.0-36.5 Mean Corpu scular HGB Conc [facility] ([facility]) red cell distribution width 12.6 % 11.5-14.5 Red Cell Distribution Width [facility] ([facility]) neutrophils % 52.2 % 36.0-66.0 Neutrophils % [facility] ( [facility]) platelet count, automated 311 10 150-450 Platelet C ount, Automated [facility] ([facility]) lymph % 36.3 % 24.0-44.0 Lymph % [facility] ([facility]) mono % 7.7 % 2.0-8.0 [place] % [facility] ([facility]) baso % 0.7 % 0.0-1.0 Baso % [facility] ([facility]) eos % 2.7 % 0.0-3.0 Eos % [facility] ([facility]) nucleated red blood cell % 0.0 % 0-0 Nucleated Red Blood Cell % [facility] ([facility]) immature granulocyte % 0.4 % 0-3.0 Immature Gran ulocyte % [facility] ([facility]) neutrophils # 4.2 10 1.5-8.5 Neutrophils # [facility] ( [facility]) lymph # 2.9 10 1.5-5.0 Lymph # [facility] ([facility]) eos # 0.2 10 0.0-0.5 Eos # [facility] ([facility]) mono # 0.6 10 0.0-0.8 [place] # [facility] ([facility]) baso # 0.1 10 0.0-0.2 Baso # [facility] ([facility]) ID Date Data Source [id number] 03/31/2021 03:53:00 PM EDT [facility] ([facility]) Name Value Range Interpretation Code Description Data Shari rce(s) Supporting Document(s) ID Date Data Source [id number] 03/31/2021 03:53:00 PM EDT [facility] ([facility]) Name Value Range Interpretation Code Description Data Shari rce(s) Supporting Document(s) appearance, urine manual clear clear Appearance, Urine Manual [facility] ([facility]) color, urine manual yellow yellow Color, Urine Man ual [facility] ([facility]) pH,urine man 5.5 units 5.0 - 7.0 pH,urine Man [facility] ([facility]) glucose, urine (UA) manual 4+(1000 mg/dL) negative Above high n ormal Glucose, Urine (UA) Manual [facility] ([facility]) protein, urine manual negative negative Protein, Urine Manual [facility] ([facility]) specific gravity,urine manual 1.002-1.035 Above high normal Specific [place],urine Manual [facility] ([facility]) ketone, urine manual negative negative Ketone, Urine M anual [facility] ([facility]) urobilinogen, urine manual normal normal Urobilino gen, Urine Manual [facility] ([facility]) leukocyte esterase, urine man negative negative Leukoc yte Esterase, Urine Man [facility] ([facility]) bilirubin, urine manual negative negative Bilirubin, U rine Manual [facility] ([facility]) nitrite, urine manual negative negative Nitrite, Urine Manual [facility] ([facility]) blood urine manual negative negative Blood Urine Manua l [facility] ([facility]) ID Date Data Source [id number] 03/31/2021 03:53:00 PM EDT [facility] ([facility]) Name Value Range Interpretation Code Description Data Shari rce(s) Supporting Document(s) cholesterol level 147 mg/dL <200 Cholesterol Level [facility] ([facility]) HDL cholesterol 43 mg/dL >40 HDL Cholesterol [facility] NA ([facility]) triglycerides level 103 mg/dL <150 Triglycerides Le cheryl [facility] ([facility]) Cholesterol in LDL [Mass/volume] in Serum or Plasma 83 mg/dL <1 00 LDL Cholesterol [facility] ([facility]) non-HDL-C 104 mg/dL Non-hdl-c [facility] ([facility]) cholesterol risk ratio <5 Cholesterol R isk Ratio [facility] ([facility]) ID Date Data Source [id number] 03/31/2021 03:53:00 PM EDT [facility] ([facility]) Name Value Range Interpretation Code Description Data Shari rce(s) Supporting Document(s) glucose, fasting 174 mg/dL 70-100 Above high normal Glucose, Fas ting [facility] ([facility]) blood urea nitrogen 11 mg/dL 7-18 Blood Urea Nitro gen [facility] ([facility]) glomerular filtration rate > 60.0 >58 Glomerula r Filtration Rate [facility] ([facility]) creatinine for GFR 0.60 mg/dL 0.55-1.30 Creatinine for GF R [facility] ([facility]) sodium level 141 mEq/L 136-145 Sodium Level [facility] ([facility]) carbon dioxide level 27 mEq/L 21-32 Carbon Dioxide Level [facility] ([facility]) chloride level 108 mEq/L 98-107 Above high normal Chloride Level [facility] ([facility]) potassium serum 4.2 mEq/L 3.5-5.1 Potassium Serum [facility] ([facility]) AST/SGOT 55 U/L 7-37 Above high normal AST/SGOT [facility] ([facility]) anion gap 6 mEq/L 8-16 Below low normal Anion Gap [facility] ( [facility]) calcium level 9.6 mg/dL 8.5-10.1 Calcium Level [facility] ( [facility]) ALT/SGPT 95 U/L 12-78 Above high normal ALT/SGPT [facility] ([facility]) bilirubin,total 0.6 mg/dL 0.2-1.0 Bilirubin,total [facility] ([facility]) alkaline phosphatase 117 U/L 45-117 Alkaline Phosph atase [facility] ([facility]) total protein 7.1 gm/dL 6.4-8.2 Total Protein [facility] ( [facility]) albumin 3.5 gm/dL 3.2-5.2 Albumin [facility] ([facility]) albumin/globulin ratio 1.2-2.2 Below low normal Albumin /globulin Ratio [facility] ([facility]) ID Date Data Source [id number] 03/31/2021 03:53:00 PM EDT [facility] ([facility]) Name Value Range Interpretation Code Description Data Shari rce(s) Supporting Document(s) appearance, urine manual clear clear Appearance, Urine Manual [facility] ([facility]) color, urine manual yellow yellow Color, Urine Man ual [facility] ([facility]) pH,urine man 5.5 units 5.0 - 7.0 pH,urine Man [facility] ([facility]) specific gravity,urine manual 1.002-1.035 Above high normal Specific [place],urine Manual [facility] ([facility]) protein, urine manual negative negative Protein, Urine Manual [facility] ([facility]) ketone, urine manual negative negative Ketone, Urine M anual [facility] ([facility]) glucose, urine (UA) manual 4+(1000 mg/dL) negative Above high n ormal Glucose, Urine (UA) Manual [facility] ([facility]) urobilinogen, urine manual normal normal Urobilino gen, Urine Manual [facility] ([facility]) leukocyte esterase, urine man negative negative Leukoc yte Esterase, Urine Man [facility] ([facility]) nitrite, urine manual negative negative Nitrite, Urine Manual [facility] ([facility]) bilirubin, urine manual negative negative Bilirubin, U rine Manual [facility] ([facility]) blood urine manual negative negative Blood Urine Manua l [facility] ([facility]) ID Date Data Source [id number] 03/31/2021 03:53:00 PM EDT [facility]) Name Value Range Interpretation Code Description Data Shari rce(s) Supporting Document(s) Hemoglobin A1c/Hemoglobin.total in Blood 9.3 % Hemoglobin a1C [facility] ([facility]) estimated average glucose 220 mg/dL 60-110 Above high norm al Estimated Average Glucose [facility]) ID Date Data Source [id number] 03/31/2021 03:53:00 PM EDT [facility]) Name Value Range Interpretation Code Description Data Shari rce(s) Supporting Document(s) white blood count 8.0 10 4.0-10.0 White Blood Count [facility] ([facility]) red blood count 4.90 10 4.00-5.40 Red Blood Count [facility] NA ([facility]) hematocrit 43.0 % 36.0-47.0 Hematocrit [facility] ([facility]) hemoglobin 13.9 g/dL 12.0-15.5 Hemoglobin [facility] ([facility]) mean corpuscular volume 87.8 fL 80.0-96.0 Mean Corpusc ular Volume [facility] ([facility]) mean corpuscular hemoglobin 28.4 pg 27.0-33.0 Mean Cor puscular Hemoglobin [facility] ([facility]) mean corpuscular HGB conc 32.3 g/dL 32.0-36.5 Mean Corpu scular HGB Conc [facility] ([facility]) red cell distribution width 12.6 % 11.5-14.5 Red Cell Distribution Width [facility] ([facility]) platelet count, automated 311 10 150-450 Platelet C ount, Automated [facility] ([facility]) neutrophils % 52.2 % 36.0-66.0 Neutrophils % [facility] ( [facility]) mono % 7.7 % 2.0-8.0 [place] % [facility] ([facility]) lymph % 36.3 % 24.0-44.0 Lymph % [facility] ([facility]) baso % 0.7 % 0.0-1.0 Baso % [facility] ([facility]) eos % 2.7 % 0.0-3.0 Eos % [facility] ([facility]) nucleated red blood cell % 0.0 % 0-0 Nucleated Red Blood Cell % [facility] ([facility]) immature granulocyte % 0.4 % 0-3.0 Immature Gran ulocyte % [facility] ([facility]) neutrophils # 4.2 10 1.5-8.5 Neutrophils # [facility] ( [facility]) lymph # 2.9 10 1.5-5.0 Lymph # [facility] ([facility]) mono # 0.6 10 0.0-0.8 [place] # [facility] ([facility]) baso # 0.1 10 0.0-0.2 Baso # [facility] ([facility]) eos # 0.2 10 0.0-0.5 Eos # [facility] ([facility]) ID Date Data Source [id number] 03/31/2021 03:53:00 PM EDT [facility] ([facility]) Name Value Range Interpretation Code Description Data Shari rce(s) Supporting Document(s) white blood count 8.0 10 4.0-10.0 White Blood Count [facility] ([facility]) red blood count 4.90 10 4.00-5.40 Red Blood Count [facility] ([facility]) hemoglobin 13.9 g/dL 12.0-15.5 Hemoglobin [facility] ([facility]) hematocrit 43.0 % 36.0-47.0 Hematocrit [facility] ([facility]) mean corpuscular hemoglobin 28.4 pg 27.0-33.0 Mean Cor puscular Hemoglobin [facility] ([facility]) mean corpuscular volume 87.8 fL 80.0-96.0 Mean Corpusc ular Volume [facility] ([facility]) mean corpuscular HGB conc 32.3 g/dL 32.0-36.5 Mean Corpu scular HGB Conc [facility] ([facility]) red cell distribution width 12.6 % 11.5-14.5 Red Cell Distribution Width [facility] ([facility]) platelet count, automated 311 10 150-450 Platelet C ount, Automated [facility] ([facility]) neutrophils % 52.2 % 36.0-66.0 Neutrophils % [facility] ( [facility]) lymph % 36.3 % 24.0-44.0 Lymph % [facility] ([facility]) eos % 2.7 % 0.0-3.0 Eos % [facility] ([facility]) mono % 7.7 % 2.0-8.0 [place] % [facility] ([facility]) immature granulocyte % 0.4 % 0-3.0 Immature Gran ulocyte % [facility] ([facility]) baso % 0.7 % 0.0-1.0 Baso % [facility] ([facility]) nucleated red blood cell % 0.0 % 0-0 Nucleated Red Blood Cell % [facility] ([facility]) neutrophils # 4.2 10 1.5-8.5 Neutrophils # [facility] ( [facility]) mono # 0.6 10 0.0-0.8 [place] # [facility] ([facility]) lymph # 2.9 10 1.5-5.0 Lymph # [facility] ([facility]) eos # 0.2 10 0.0-0.5 Eos # [facility] ([facility]) baso # 0.1 10 0.0-0.2 Baso # [facility] ([facility]) ID Date Data Source [id number] 03/31/2021 03:53:00 PM EDT [facility]) Name Value Range Interpretation Code Description Data Shari rce(s) Supporting Document(s) ID Date Data Source [id number] 03/31/2021 03:53:00 PM EDT [facility] ([facility]) Name Value Range Interpretation Code Description Data Shari rce(s) Supporting Document(s) appearance, urine manual clear clear Appearance, Urine Manual [facility] ([facility]) specific gravity,urine manual 1.002-1.035 Above high normal Specific [place],urine Manual [facility] ([facility]) pH,urine man 5.5 units 5.0 - 7.0 pH,urine Man [facility] ([facility]) color, urine manual yellow yellow Color, Urine Man ual [facility] ([facility]) glucose, urine (UA) manual 4+(1000 mg/dL) negative Above high n ormal Glucose, Urine (UA) Manual [facility] ([facility]) protein, urine manual negative negative Protein, Urine Manual [facility] ([facility]) ketone, urine manual negative negative Ketone, Urine M anual [facility] ([facility]) bilirubin, urine manual negative negative Bilirubin, U rine Manual [facility] ([facility]) urobilinogen, urine manual normal normal Urobilino gen, Urine Manual [facility] ([facility]) nitrite, urine manual negative negative Nitrite, Urine Manual [facility] ([facility]) blood urine manual negative negative Blood Urine Manua l [facility] ([facility]) leukocyte esterase, urine man negative negative Leukoc yte Esterase, Urine Man [facility] ([facility]) ID Date Data Source [id number] 03/31/2021 03:53:00 PM EDT [facility] ([facility]) Name Value Range Interpretation Code Description Data Shari rce(s) Supporting Document(s) triglycerides level 103 mg/dL <150 Triglycerides Le cheryl [facility] ([facility]) cholesterol level 147 mg/dL <200 Cholesterol Level [facility] ([facility]) HDL cholesterol 43 mg/dL >40 HDL Cholesterol [facility] ([facility]) Cholesterol in LDL [Mass/volume] in Serum or Plasma 83 mg/dL <1 00 LDL Cholesterol [facility] ([facility]) non-HDL-C 104 mg/dL Non-hdl-c [facility] ([facility]) cholesterol risk ratio <5 Cholesterol R isk Ratio [facility] ([facility]) ID Date Data Source [id number] 03/31/2021 03:53:00 PM EDT [facility] ([facility]) Name Value Range Interpretation Code Description Data Shari rce(s) Supporting Document(s) blood urea nitrogen 11 mg/dL 7-18 Blood Urea Nitro gen [facility] ([facility]) glucose, fasting 174 mg/dL 70-100 Above high normal Glucose, Fas ting [facility] ([facility]) creatinine for GFR 0.60 mg/dL 0.55-1.30 Creatinine for GF R [facility] ([facility]) sodium level 141 mEq/L 136-145 Sodium Level [facility] ([facility]) potassium serum 4.2 mEq/L 3.5-5.1 Potassium Serum [facility] NA ([facility]) glomerular filtration rate > 60.0 >58 Glomerula r Filtration Rate [facility] ([facility]) carbon dioxide level 27 mEq/L 21-32 Carbon Dioxide Level [facility] ([facility]) chloride level 108 mEq/L 98-107 Above high normal Chloride Level [facility] ([facility]) calcium level 9.6 mg/dL 8.5-10.1 Calcium Level [facility] ( [facility]) anion gap 6 mEq/L 8-16 Below low normal Anion Gap [facility] ( [facility]) AST/SGOT 55 U/L 7-37 Above high normal AST/SGOT [facility] ([facility]) ALT/SGPT 95 U/L 12-78 Above high normal ALT/SGPT [facility] ([facility]) total protein 7.1 gm/dL 6.4-8.2 Total Protein [facility] ( [facility]) alkaline phosphatase 117 U/L 45-117 Alkaline Phosph atase [facility] ([facility]) bilirubin,total 0.6 mg/dL 0.2-1.0 Bilirubin,total [facility] ([facility]) albumin/globulin ratio 1.2-2.2 Below low normal Albumin /globulin Ratio [facility] ([facility]) albumin 3.5 gm/dL 3.2-5.2 Albumin [facility] ([facility]) ID Date Data Source [id number] 03/31/2021 03:53:00 PM EDT [facility] ([facility]) Name Value Range Interpretation Code Description Data Shari rce(s) Supporting Document(s) appearance, urine manual clear clear Appearance, Urine Manual [facility] ([facility]) color, urine manual yellow yellow Color, Urine Man ual [facility] ([facility]) pH,urine man 5.5 units 5.0 - 7.0 pH,urine Man [facility] ([facility]) specific gravity,urine manual 1.002-1.035 Above high normal Specific [place],urine Manual [facility] ([facility]) glucose, urine (UA) manual 4+(1000 mg/dL) negative Above high n ormal Glucose, Urine (UA) Manual [facility] ([facility]) protein, urine manual negative negative Protein, Urine Manual [facility] ([facility]) ketone, urine manual negative negative Ketone, Urine M anual [facility] ([facility]) urobilinogen, urine manual normal normal Urobilino gen, Urine Manual [facility] ([facility]) leukocyte esterase, urine man negative negative Leukoc yte Esterase, Urine Man [facility] ([facility]) bilirubin, urine manual negative negative Bilirubin, U rine Manual [facility] ([facility]) nitrite, urine manual negative negative Nitrite, Urine Manual [facility] ([facility]) blood urine manual negative negative Blood Urine Manua l [facility] ([facility]) ID Date Data Source [id number] 03/31/2021 03:53:00 PM EDT [facility] ([facility]) Name Value Range Interpretation Code Description Data Shari rce(s) Supporting Document(s) estimated average glucose 220 mg/dL 60-110 Above high norm al Estimated Average Glucose [facility] ([facility]) Hemoglobin A1c/Hemoglobin.total in Blood 9.3 % Hemoglobin a1C [facility] ([facility]) ID Date Data Source [id number] 03/31/2021 03:53:00 PM EDT [facility] ([facility]) Name Value Range Interpretation Code Description Data Shari rce(s) Supporting Document(s) white blood count 8.0 10 4.0-10.0 White Blood Count [facility] ([facility]) red blood count 4.90 10 4.00-5.40 Red Blood Count [facility] NA ([facility]) hemoglobin 13.9 g/dL 12.0-15.5 Hemoglobin [facility] ([facility]) mean corpuscular hemoglobin 28.4 pg 27.0-33.0 Mean Cor puscular Hemoglobin [facility] ([facility]) hematocrit 43.0 % 36.0-47.0 Hematocrit [facility] ([facility]) mean corpuscular volume 87.8 fL 80.0-96.0 Mean Corpusc ular Volume [facility] ([facility]) mean corpuscular HGB conc 32.3 g/dL 32.0-36.5 Mean Corpu scular HGB Conc [facility] ([facility]) red cell distribution width 12.6 % 11.5-14.5 Red Cell Distribution Width [facility] ([facility]) platelet count, automated 311 10 150-450 Platelet C ount, Automated [facility] ([facility]) neutrophils % 52.2 % 36.0-66.0 Neutrophils % [facility] ( [facility]) lymph % 36.3 % 24.0-44.0 Lymph % [facility]) mono % 7.7 % 2.0-8.0 [place] % [facility]) baso % 0.7 % 0.0-1.0 Baso % [facility]) eos % 2.7 % 0.0-3.0 Eos % [facility]) immature granulocyte % 0.4 % 0-3.0 Immature Gran ulocyte % [facility] ([facility]) nucleated red blood cell % 0.0 % 0-0 Nucleated Red Blood Cell % [facility] ([facility]) lymph # 2.9 10 1.5-5.0 Lymph # [facility] ([facility]) mono # 0.6 10 0.0-0.8 [place] # [facility] ([facility]) neutrophils # 4.2 10 1.5-8.5 Neutrophils # [facility] ( [facility]) baso # 0.1 10 0.0-0.2 Baso # [facility] ([facility]) eos # 0.2 10 0.0-0.5 Eos # [facility] ([facility]) ID Date Data Source [id number] 03/31/2021 03:53:00 PM EDT [facility] ([facility]) Name Value Range Interpretation Code Description Data Shari rce(s) Supporting Document(s) ID Date Data Source [id number] 03/31/2021 03:53:00 PM EDT [facility] ([facility]) Name Value Range Interpretation Code Description Data Shari rce(s) Supporting Document(s) appearance, urine manual clear clear Appearance, Urine Manual [facility] ([facility]) color, urine manual yellow yellow Color, Urine Man ual [facility] ([facility]) specific gravity,urine manual 1.002-1.035 Above high normal Specific [place],urine Manual [facility] ([facility]) protein, urine manual negative negative Protein, Urine Manual [facility] ([facility]) pH,urine man 5.5 units 5.0 - 7.0 pH,urine Man [facility] ([facility]) glucose, urine (UA) manual 4+(1000 mg/dL) negative Above high n ormal Glucose, Urine (UA) Manual [facility] ([facility]) urobilinogen, urine manual normal normal Urobilino gen, Urine Manual [facility] ([facility]) ketone, urine manual negative negative Ketone, Urine M anual [facility] ([facility]) leukocyte esterase, urine man negative negative Leukoc yte Esterase, Urine Man [facility] ([facility]) nitrite, urine manual negative negative Nitrite, Urine Manual [facility] ([facility]) bilirubin, urine manual negative negative Bilirubin, U rine Manual [facility] ([facility]) blood urine manual negative negative Blood Urine Manua l [facility] ([facility]) ID Date Data Source [id number] 03/31/2021 03:53:00 PM EDT [facility]) Name Value Range Interpretation Code Description Data Shari rce(s) Supporting Document(s) triglycerides level 103 mg/dL <150 Triglycerides Le cheryl [facility] ([facility]) HDL cholesterol 43 mg/dL >40 HDL Cholesterol [facility] NA ([facility]) cholesterol level 147 mg/dL <200 Cholesterol Level [facility] ([facility]) Cholesterol in LDL [Mass/volume] in Serum or Plasma 83 mg/dL <1 00 LDL Cholesterol [facility] ([facility]) cholesterol risk ratio <5 Cholesterol R isk Ratio [facility] ([facility]) non-HDL-C 104 mg/dL Non-hdl-c [facility] ([facility]) ID Date Data Source [id number] 03/31/2021 03:53:00 PM EDT [facility] ([facility]) Name Value Range Interpretation Code Description Data Shari rce(s) Supporting Document(s) glucose, fasting 174 mg/dL 70-100 Above high normal Glucose, Fas ting [facility] ([facility]) creatinine for GFR 0.60 mg/dL 0.55-1.30 Creatinine for GF R [facility] ([facility]) blood urea nitrogen 11 mg/dL 7-18 Blood Urea Nitro gen [facility] ([facility]) sodium level 141 mEq/L 136-145 Sodium Level [facility] ([facility]) glomerular filtration rate > 60.0 >58 Glomerula r Filtration Rate [facility] ([facility]) potassium serum 4.2 mEq/L 3.5-5.1 Potassium Serum [facility] ([facility]) carbon dioxide level 27 mEq/L 21-32 Carbon Dioxide Level [facility] ([facility]) chloride level 108 mEq/L 98-107 Above high normal Chloride Level [facility] ([facility]) calcium level 9.6 mg/dL 8.5-10.1 Calcium Level [facility] ( [facility]) AST/SGOT 55 U/L 7-37 Above high normal AST/SGOT [facility] ([facility]) anion gap 6 mEq/L 8-16 Below low normal Anion Gap [facility] ( [facility]) alkaline phosphatase 117 U/L 45-117 Alkaline Phosph atase [facility] ([facility]) ALT/SGPT 95 U/L 12-78 Above high normal ALT/SGPT [facility] ([facility]) total protein 7.1 gm/dL 6.4-8.2 Total Protein [facility] ( [facility]) bilirubin,total 0.6 mg/dL 0.2-1.0 Bilirubin,total [facility] ([facility]) albumin 3.5 gm/dL 3.2-5.2 Albumin [facility] ([facility]) albumin/globulin ratio 1.2-2.2 Below low normal Albumin /globulin Ratio [facility] ([facility]) ID Date Data Source [id number] 03/31/2021 03:53:00 PM EDT [facility] ([facility]) Name Value Range Interpretation Code Description Data Shari rce(s) Supporting Document(s) appearance, urine manual clear clear Appearance, Urine Manual [facility] ([facility]) color, urine manual yellow yellow Color, Urine Man ual [facility] ([facility]) pH,urine man 5.5 units 5.0 - 7.0 pH,urine Man [facility] ([facility]) specific gravity,urine manual 1.002-1.035 Above high normal Specific [place],urine Manual [facility] ([facility]) protein, urine manual negative negative Protein, Urine Manual [facility] ([facility]) ketone, urine manual negative negative Ketone, Urine M anual [facility] ([facility]) glucose, urine (UA) manual 4+(1000 mg/dL) negative Above high n ormal Glucose, Urine (UA) Manual [facility] ([facility]) urobilinogen, urine manual normal normal Urobilino gen, Urine Manual [facility] ([facility]) bilirubin, urine manual negative negative Bilirubin, U rine Manual [facility]) nitrite, urine manual negative negative Nitrite, Urine Manual [facility] ([facility]) leukocyte esterase, urine man negative negative Leukoc yte Esterase, Urine Man [facility] ([facility]) blood urine manual negative negative Blood Urine Manua l [facility] ([facility]) ID Date Data Source [id number] 03/31/2021 03:53:00 PM EDT [facility] ([facility]) Name Value Range Interpretation Code Description Data Shari rce(s) Supporting Document(s) Hemoglobin A1c/Hemoglobin.total in Blood 9.3 % Hemoglobin a1C [facility] ([facility]) estimated average glucose 220 mg/dL 60-110 Above high norm al Estimated Average Glucose [facility]) ID Date Data Source [id number] 03/31/2021 03:32:00 PM EDT [facility]) Name Value Range Interpretation Code Description Data Shari rce(s) Supporting Document(s) Hemoglobin A1c/Hemoglobin.total in Blood Above high normal Hba1C [facility]) ID Date Data Source [id number] 03/31/2021 03:32:00 PM EDT [facility]) Name Value Range Interpretation Code Description Data Shari rce(s) Supporting Document(s) Hemoglobin A1c/Hemoglobin.total in Blood Above high normal Hba1C [facility]) ID Date Data Source [id number] 03/31/2021 03:32:00 PM EDT [facility]) Name Value Range Interpretation Code Description Data Shari rce(s) Supporting Document(s) Hemoglobin A1c/Hemoglobin.total in Blood Above high normal Hba1C [facility]) ID Date Data Source [id number] 03/31/2021 03:32:00 PM EDT [facility]) Name Value Range Interpretation Code Description Data Shari rce(s) Supporting Document(s) Hemoglobin A1c/Hemoglobin.total in Blood Above high normal Hba1C [facility]) ID Date Data Source [id number] 03/31/2021 03:32:00 PM EDT [facility]) Name Value Range Interpretation Code Description Data Shari rce(s) Supporting Document(s) Hemoglobin A1c/Hemoglobin.total in Blood Above high normal Hba1C [facility]) ID Date Data Source [id number] 03/31/2021 03:31:00 PM EDT [facility]) Name Value Range Interpretation Code Description Data Shari rce(s) Supporting Document(s) Blood Glucose: mg/dl Blood Glucose: mg/dl [facility] ID Date Data Source [id number] 03/31/2021 03:31:00 PM EDT [facility] ([facility]) Name Value Range Interpretation Code Description Data Shari rce(s) Supporting Document(s) Blood Glucose: mg/dl Blood Glucose: mg/dl [facility] ([facility]) ID Date Data Source [id number] 03/31/2021 03:31:00 PM EDT [facility] ([facility]) Name Value Range Interpretation Code Description Data Shari rce(s) Supporting Document(s) Blood Glucose: mg/dl Blood Glucose: mg/dl [facility] ([facility]) ID Date Data Source [id number] 03/31/2021 03:31:00 PM EDT [facility] ([facility]) Name Value Range Interpretation Code Description Data Shari rce(s) Supporting Document(s) Blood Glucose: mg/dl Blood Glucose: mg/dl [facility] ([facility]) ID Date Data Source [id number] 03/10/2021 01:14:00 PM EDT [facility] ([facility]) Name Value Range Interpretation Code Description Data Shari rce(s) Supporting Document(s) istat troponin 0.00 NG/mL 0.00-0.08 Istat Troponin [facility] ([facility]) ID Date Data Source [id number] 03/10/2021 01:14:00 PM EDT [facility] ([facility]) Name Value Range Interpretation Code Description Data Shari rce(s) Supporting Document(s) istat troponin 0.00 NG/mL 0.00-0.08 Istat Troponin [facility] ([facility]) ID Date Data Source [id number] 03/10/2021 01:14:[facility] Name Value [facility] Interpretation Code Description Data Shari rce(s) Supporting Document(s) istat troponin 0.00 NG/mL 0.00-0.08 Istat Troponin [facility] ([facility]) ID Date Data Source [id number] 03/10/2021 01:14:00 PM [facility] Name Value Range Interpretation Code Description Data Shari rce(s) Supporting Document(s) istat troponin 0.00 NG/mL 0.00-0.08 Istat Troponin [facility] ([facility]) ID Date Data Source [id number] 03/10/2021 01:14:00 PM EDT [facility]) Name Value Range Interpretation Code Description Data Shari rce(s) Supporting Document(s) istat troponin 0.00 NG/mL 0.00-0.08 Istat Troponin [facility] ([facility]) ID Date Data Source [id number] 03/10/2021 12:45:00 PM EDT [facility]) Name Value Range Interpretation Code Description Data Shari rce(s) Supporting Document(s) platelet estimate normal normal Platelet Estimate [facility] ([facility]) ID Date Data Source [id number] 03/10/2021 12:45:00 PM EDT [facility]) Name Value Range Interpretation Code Description Data Shari rce(s) Supporting Document(s) lymphocytes 27 % 16-44 Lymphocytes [facility] ([facility]) neutrophils 59 % 28-66 Neutrophils [facility] ([facility]) atypical lymph 5 % 0-5 Atypical Lymph [facility] ([facility]) monocytes 9 % 0-5 Above high normal Monocytes [facility] ([facility]) ID Date Data Source [id number] 03/10/2021 12:45:00 PM EDT [facility] ([facility]) Name Value Range Interpretation Code Description Data Shari rce(s) Supporting Document(s) white blood count 7.3 10 4.0-10.0 White Blood Count [facility] ([facility]) hematocrit 44.8 % 36.0-47.0 Hematocrit [facility] ([facility]) hemoglobin 15.1 g/dL 12.0-15.5 Hemoglobin [facility] ([facility]) mean corpuscular volume 86.0 fL 80.0-96.0 Mean Corpusc ular Volume [facility] ([facility]) red blood count 5.21 10 4.00-5.40 Red Blood Count [facility] ([facility]) red cell distribution width 12.5 % 11.5-14.5 Red Cell Distribution Width [facility] ([facility]) mean corpuscular HGB conc 33.7 g/dL 32.0-36.5 Mean Corpu scular HGB Conc [facility] ([facility]) mean corpuscular hemoglobin 29.0 pg 27.0-33.0 Mean Cor puscular Hemoglobin [facility] ([facility]) platelet count, automated 296 10 150-450 Platelet C ount, Automated [facility] ([facility]) nucleated red blood cell % 0.0 % 0-0 Nucleated Red Blood Cell % [facility] ([facility]) ID Date Data Source [id number] 03/10/2021 12:45:00 PM EDT [facility] ([facility]) Name Value Range Interpretation Code Description Data Shari rce(s) Supporting Document(s) thyroid stimulating hormone 1.740 uIU/mL 0.358-3.740 Thyroid Stimulating Hormone [facility] ([facility]) ID Date Data Source [id number] 03/10/2021 12:45:00 PM EDT [facility] ([facility]) Name Value Range Interpretation Code Description Data Shari rce(s) Supporting Document(s) lipase 96 U/L 73-393 Lipase [facility] ([facility]) ID Date Data Source [id number] 03/10/2021 12:45:00 PM EDT [facility]) Name Value Range Interpretation Code Description Data Shari rce(s) Supporting Document(s) blood urea nitrogen 12 mg/dL 7-18 Blood Urea Nitro gen [facility] ([facility]) glucose, fasting 174 mg/dL 70-100 Above high normal Glucose, Fas ting [facility] ([facility]) creatinine for GFR 0.63 mg/dL 0.55-1.30 Creatinine for GF R [facility] ([facility]) sodium level 141 mEq/L 136-145 Sodium Level [facility] ([facility]) glomerular filtration rate > 60.0 >58 Glomerula r Filtration Rate [facility] ([facility]) potassium serum 3.7 mEq/L 3.5-5.1 Potassium Serum AT[facility]) chloride level 108 mEq/L 98-107 Above high normal Chloride Level [facility] ([facility]) carbon dioxide level 28 mEq/L 21-32 Carbon Dioxide Level [facility] ([facility]) calcium level 9.5 mg/dL 8.5-10.1 Calcium Level [facility] ( [facility]) anion gap 5 mEq/L 8-16 Below low normal Anion Gap [facility] ( [facility]) ID Date Data Source [id number] 03/10/2021 12:45:00 PM EDT [facility]) Name Value Range Interpretation Code Description Data Shari rce(s) Supporting Document(s) AST/SGOT 117 U/L 7-37 Above high normal AST/SGOT [facility] ([facility]) bilirubin,total 1.0 mg/dL 0.2-1.0 Bilirubin,total [facility] ([facility]) ALT/SGPT 140 U/L 12-78 Above high normal ALT/SGPT [facility] ([facility]) alkaline phosphatase 116 U/L 45-117 Alkaline Phosph atase [facility] ([facility]) albumin 3.5 gm/dL 3.2-5.2 Albumin [facility] ([facility]) bilirubin,direct 0.3 mg/dL 0.0-0.2 Above high normal Bilirubin,di rect [facility] ([facility]) total protein 7.2 gm/dL 6.4-8.2 Total Protein [facility] ( [facility]) albumin/globulin ratio 1.2-2.2 Below low normal Albumin /globulin Ratio [facility] ([facility]) ID Date Data Source [id number] 03/10/2021 12:45:00 PM EDT [facility]) Name Value Range Interpretation Code Description Data Shari rce(s) Supporting Document(s) Hemoglobin A1c/Hemoglobin.total in Blood 9.4 % Hemoglobin a1C [facility] ([facility]) estimated average glucose 223 mg/dL 60-110 Above high norm al Estimated Average Glucose [facility]) ID Date Data Source [id number] 03/10/2021 12:45:00 PM EDT [facility]) Name Value Range Interpretation Code Description Data Shari rce(s) Supporting Document(s) platelet estimate normal normal Platelet Estimate [facility]) ID Date Data Source [id number] 03/10/2021 12:45:00 PM EDT [facility]) Name Value Range Interpretation Code Description Data Shari rce(s) Supporting Document(s) neutrophils 59 % 28-66 Neutrophils [facility] ([facility]) lymphocytes 27 % 16-44 Lymphocytes [place] ([facility]) monocytes 9 % 0-5 Above high normal Monocytes [place] ([facility]) atypical lymph 5 % 0-5 Atypical Lymph [facility]) ID Date Data Source [id number] 03/10/2021 12:45:00 PM EDT [facility]) Name Value Range Interpretation Code Description Data Shari rce(s) Supporting Document(s) red blood count 5.21 10 4.00-5.40 Red Blood Count ATHE NA ([facility]) hemoglobin 15.1 g/dL 12.0-15.5 Hemoglobin [place] ([facility]) hematocrit 44.8 % 36.0-47.0 Hematocrit [place] ([facility]) white blood count 7.3 10 4.0-10.0 White Blood Count [place] ([facility]) mean corpuscular hemoglobin 29.0 pg 27.0-33.0 Mean Cor puscular Hemoglobin [place] ([facility]) red cell distribution width 12.5 % 11.5-14.5 Red Cell Distribution Width [place] ([facility]) mean corpuscular HGB conc 33.7 g/dL 32.0-36.5 Mean Corpu scular HGB Conc [place] ([facility]) mean corpuscular volume 86.0 fL 80.0-96.0 Mean Corpusc ular Volume [place] ([facility]) platelet count, automated 296 10 150-450 Platelet C ount, Automated [place] ([facility]) nucleated red blood cell % 0.0 % 0-0 Nucleated Red Blood Cell % [place] ([facility]) ID Date Data Source [id number] 03/10/2021 12:45:00 PM EDT [facility] ([facility]) Name Value Range Interpretation Code Description Data Shari rce(s) Supporting Document(s) thyroid stimulating hormone 1.740 uIU/mL 0.358-3.740 Thyroid Stimulating Hormone [place] ([facility]) ID Date Data Source [id number] 03/10/2021 12:45:00 PM EDT [facility] ([facility]) Name Value Range Interpretation Code Description Data Shari rce(s) Supporting Document(s) lipase 96 U/L 73-393 Lipase [place] ([facility]) ID Date Data Source [id number] 03/10/2021 12:45:00 PM EDT [place] ([facility]) Name Value Range Interpretation Code Description Data Shari rce(s) Supporting Document(s) glucose, fasting 174 mg/dL 70-100 Above high normal Glucose, Fas ting [place] ([facility]) blood urea nitrogen 12 mg/dL 7-18 Blood Urea Nitro gen [place] ([facility]) sodium level 141 mEq/L 136-145 S[facility] Level [facility] creatinine for GFR 0.63 mg/dL 0.55-1.30 Creatinine for GF R [place] ([facility]) glomerular filtration rate > 60.0 >58 Glomerula r Filtration Rate [place] ([facility]) carbon dioxide level 28 mEq/L 21-32 Carbon Dioxide Level [facility] ([facility]) potassium serum 3.7 mEq/L 3.5-5.1 Potassium Serum [facility] NA ([facility]) chloride level 108 mEq/L 98-107 Above high normal Chloride Level [place] ([facility]) anion gap 5 mEq/L 8-16 Below low normal Anion Gap [place] ( [facility]) calcium level 9.5 mg/dL 8.5-10.1 Calcium Level [facility] ( [facility]) ID Date Data Source [id number] 03/10/2021 12:45:00 PM EDT [facility] ([facility]) Name Value Range Interpretation Code Description Data Shari rce(s) Supporting Document(s) AST/SGOT 117 U/L 7-37 Above high normal AST/SGOT [place] ([facility]) ALT/SGPT 140 U/L 12-78 Above high normal ALT/SGPT [place] ([facility]) alkaline phosphatase 116 U/L 45-117 Alkaline Phosph atase [place] ([facility]) total protein 7.2 gm/dL 6.4-8.2 Total Protein [place] ( [facility]) bilirubin,total 1.0 mg/dL 0.2-1.0 Bilirubin,total AT[facility] NA ([facility]) bilirubin,direct 0.3 mg/dL 0.0-0.2 Above high normal Bilirubin,di rect [place] ([facility]) albumin/globulin ratio 1.2-2.2 Below low normal Albumin /globulin Ratio [facility] ([facility]) albumin 3.5 gm/dL 3.2-5.2 Albumin [place] ([facility]) ID Date Data Source [id number] 03/10/2021 12:45:00 PM EDT [facility]) Name Value Range Interpretation Code Description Data Shari rce(s) Supporting Document(s) estimated average glucose 223 mg/dL 60-110 Above high norm al Estimated Average Glucose [facility]) Hemoglobin A1c/Hemoglobin.total in Blood 9.4 % Hemoglobin a1C [facility]) ID Date Data Source [id number] 03/10/2021 12:45:00 PM EDT [facility]) Name Value Range Interpretation Code Description Data Shari rce(s) Supporting Document(s) platelet estimate normal normal Platelet Estimate [facility]) ID Date Data Source [id number] 03/10/2021 12:45:00 PM EDT [facility]) Name Value Range Interpretation Code Description Data Shari rce(s) Supporting Document(s) neutrophils 59 % 28-66 Neutrophils [place] ([facility]) lymphocytes 27 % 16-44 Lymphocytes [place] ([facility]) monocytes 9 % 0-5 Above high normal Monocytes [place] ([facility]) atypical lymph 5 % 0-5 Atypical Lymph [facility] ([facility]) ID Date Data Source [id number] 03/10/2021 12:45:00 PM EDT [facility]) Name Value Range Interpretation Code Description Data Shari rce(s) Supporting Document(s) white blood count 7.3 10 4.0-10.0 White Blood Count [facility] ([facility]) red blood count 5.21 10 4.00-5.40 Red Blood Count [facility] NA ([facility]) mean corpuscular volume 86.0 fL 80.0-96.0 Mean Corpusc ular Volume [place] ([facility]) hematocrit 44.8 % 36.0-47.0 Hematocrit [place] ([facility]) mean corpuscular hemoglobin 29.0 pg 27.0-33.0 Mean Cor puscular Hemoglobin [place] ([facility]) hemoglobin 15.1 g/dL 12.0-15.5 Hemoglobin [place] ([facility]) mean corpuscular HGB conc 33.7 g/dL 32.0-36.5 Mean Corpu scular HGB Conc [place] ([facility]) platelet count, automated 296 10 150-450 Platelet C ount, Automated [place] ([facility]) red cell distribution width 12.5 % 11.5-14.5 Red Cell Distribution Width [place] ([facility]) nucleated red blood cell % 0.0 % 0-0 Nucleated Red Blood Cell % [facility] ([facility]) ID Date Data Source [id number] 03/10/2021 12:45:00 PM EDT [facility]) Name Value Range Interpretation Code Description Data Shari rce(s) Supporting Document(s) thyroid stimulating hormone 1.740 uIU/mL 0.358-3.740 Thyroid Stimulating Hormone [facility] ([facility]) ID Date Data Source [id number] 03/10/2021 12:45:00 PM EDT [facility] ([facility]) Name Value Range Interpretation Code Description Data Shari rce(s) Supporting Document(s) lipase 96 U/L 73-393 Lipase [facility]) ID Date Data Source [id number] 03/10/2021 12:45:00 PM EDT [facility]) Name Value Range Interpretation Code Description Data Shari rce(s) Supporting Document(s) creatinine for GFR 0.63 mg/dL 0.55-1.30 Creatinine for GF R [place] ([facility]) blood urea nitrogen 12 mg/dL 7-18 Blood Urea Nitro gen [place] ([facility]) glucose, fasting 174 mg/dL 70-100 Above high normal Glucose, Fas ting [place] ([facility]) glomerular filtration rate > 60.0 >58 Glomerula r Filtration Rate [place] ([facility]) sodium level 141 mEq/L 136-145 Sodium Level [place] ([facility]) chloride level 108 mEq/L 98-107 Above high normal Chloride Level [place] ([facility]) potassium serum 3.7 mEq/L 3.5-5.1 Potassium Serum [facility] ([facility]) anion gap 5 mEq/L 8-16 Below low normal Anion Gap [facility] ( [facility]) calcium level 9.5 mg/dL 8.5-10.1 Calcium Level [facility] ( [facility]) carbon dioxide level 28 mEq/L 21-32 Carbon Dioxide Level [facility] ([facility]) ID Date Data Source [id number] 03/10/2021 12:45:00 PM EDT [facility] ([facility]) Name Value Range Interpretation Code Description Data Shari rce(s) Supporting Document(s) AST/SGOT 117 U/L 7-37 Above high normal AST/SGOT [place] ([facility]) alkaline phosphatase 116 U/L 45-117 Alkaline Phosph atase [place] ([facility]) bilirubin,total 1.0 mg/dL 0.2-1.0 Bilirubin,total [facility] NA ([facility]) ALT/SGPT 140 U/L 12-78 Above high normal ALT/SGPT [place] ([facility]) bilirubin,direct 0.3 mg/dL 0.0-0.2 Above high normal Bilirubin,di rect [place] ([facility]) albumin 3.5 gm/dL 3.2-5.2 Albumin [place] ([facility]) albumin/globulin ratio 1.2-2.2 Below low normal Albumin /globulin Ratio [place] ([facility]) total protein 7.2 gm/dL 6.4-8.2 Total Protein [place] ( [facility]) ID Date Data Source [id number] 03/10/2021 12:45:00 PM EDT [place] ([facility]) Name Value Range Interpretation Code Description Data Shari rce(s) Supporting Document(s) Hemoglobin A1c/Hemoglobin.total in Blood 9.4 % Hemoglobin a1C [place] ([facility]) estimated average glucose 223 mg/dL 60-110 Above high norm al Estimated Average Glucose [place] ([facility]) ID Date Data Source [id number] 03/10/2021 12:45:00 PM EDT [facility] ([facility]) Name Value Range Interpretation Code Description Data Shari rce(s) Supporting Document(s) platelet estimate normal normal Platelet Estimate [place] ([facility]) ID Date Data Source [id number] 03/10/2021 12:45:00 PM EDT [facility] ([facility]) Name Value Range Interpretation Code Description Data Shari rce(s) Supporting Document(s) lymphocytes 27 % 16-44 Lymphocytes [place] ([facility]) neutrophils 59 % 28-66 Neutrophils [place] ([facility]) monocytes 9 % 0-5 Above high normal Monocytes [place] ([facility]) atypical lymph 5 % 0-5 Atypical Lymph [place] ([facility]) ID Date Data Source [id number] 03/10/2021 12:45:00 PM EDT [facility] ([facility]) Name Value Range Interpretation Code Description Data Shari rce(s) Supporting Document(s) red blood count 5.21 10 4.00-5.40 Red Blood Count [facility] ([facility]) white blood count 7.3 10 4.0-10.0 White Blood Count [place] ([facility]) mean corpuscular volume 86.0 fL 80.0-96.0 Mean Corpusc ular Volume [place] ([facility]) hemoglobin 15.1 g/dL 12.0-15.5 Hemoglobin [place] ([facility]) hematocrit 44.8 % 36.0-47.0 Hematocrit [place] ([facility]) mean corpuscular hemoglobin 29.0 pg 27.0-33.0 Mean Cor puscular Hemoglobin [place] ([facility]) red cell distribution width 12.5 % 11.5-14.5 Red Cell Distribution Width [place] ([facility]) mean corpuscular HGB conc 33.7 g/dL 32.0-36.5 Mean Corpu scular HGB Conc [place] ([facility]) platelet count, automated 296 10 150-450 Platelet C ount, Automated [facility] ([facility]) nucleated red blood cell % 0.0 % 0-0 Nucleated Red Blood Cell % [facility] ([facility]) ID Date Data Source [id number] 03/10/2021 12:45:00 PM EDT [facility]) Name Value Range Interpretation Code Description Data Shari rce(s) Supporting Document(s) thyroid stimulating hormone 1.740 uIU/mL 0.358-3.740 Thyroid Stimulating Hormone [facility] ([facility]) ID Date Data Source [id number] 03/10/2021 12:45:00 PM EDT [facility]) Name Value Range Interpretation Code Description Data Shari rce(s) Supporting Document(s) lipase 96 U/L 73-393 Lipase [facility] ([facility]) ID Date Data Source [id number] 03/10/2021 12:45:00 PM EDT [facility]) Name Value Range Interpretation Code Description Data Shari rce(s) Supporting Document(s) glucose, fasting 174 mg/dL 70-100 Above high normal Glucose, Fas ting [facility] ([facility]) blood urea nitrogen 12 mg/dL 7-18 Blood Urea Nitro gen [place] ([facility]) glomerular filtration rate > 60.0 >58 Glomerula r Filtration Rate [place] ([facility]) sodium level 141 mEq/L 136-145 Sodium Level [place] ([facility]) creatinine for GFR 0.63 mg/dL 0.55-1.30 Creatinine for GF R [place] ([facility]) carbon dioxide level 28 mEq/L 21-32 Carbon Dioxide Level [place] ([facility]) chloride level 108 mEq/L 98-107 Above high normal Chloride Level [place] ([facility]) potassium serum 3.7 mEq/L 3.5-5.1 Potassium Serum [facility] NA ([facility]) calcium level 9.5 mg/dL 8.5-10.1 Calcium Level [facility] ( [facility]) anion gap 5 mEq/L 8-16 Below low normal Anion Gap [place] ( [facility]) ID Date Data Source [id number] 03/10/2021 12:45:00 PM EDT [facility] ([facility]) Name Value Range Interpretation Code Description Data Shari rce(s) Supporting Document(s) AST/SGOT 117 U/L 7-37 Above high normal AST/SGOT [place] ([facility]) ALT/SGPT 140 U/L 12-78 Above high normal ALT/SGPT [place] ([facility]) alkaline phosphatase 116 U/L 45-117 Alkaline Phosph atase [place] ([facility]) bilirubin,total 1.0 mg/dL 0.2-1.0 Bilirubin,total [facility] NA ([facility]) total protein 7.2 gm/dL 6.4-8.2 Total Protein [place] ( [facility]) bilirubin,direct 0.3 mg/dL 0.0-0.2 Above high normal Bilirubin,di rect [place] ([facility]) albumin 3.5 gm/dL 3.2-5.2 Albumin [place] ([facility]) albumin/globulin ratio 1.2-2.2 Below low normal Albumin /globulin Ratio [facility]) ID Date Data Source [id number] 03/10/2021 12:45:00 PM EDT [facility] ([facility]) Name Value Range Interpretation Code Description Data Shari rce(s) Supporting Document(s) Hemoglobin A1c/Hemoglobin.total in Blood 9.4 % Hemoglobin a1C [place] ([facility]) estimated average glucose 223 mg/dL 60-110 Above high norm al Estimated Average Glucose [place] ([facility]) ID Date Data Source [id number] 03/10/2021 12:45:00 PM EDT [place] ([facility]) Name Value Range Interpretation Code Description Data Shari rce(s) Supporting Document(s) platelet estimate normal normal Platelet Estimate [place] ([facility]) ID Date Data Source [id number] 03/10/2021 12:45:00 PM EDT [place] ([facility]) Name Value Range Interpretation Code Description Data Shari rce(s) Supporting Document(s) lymphocytes 27 % 16-44 Lymphocytes [place] ([facility]) monocytes 9 % 0-5 Above high normal Monocytes [place] ([facility]) neutrophils 59 % 28-66 Neutrophils [place] ([facility]) atypical lymph 5 % 0-5 Atypical Lymph [place] ([facility]) ID Date Data Source [id number] 03/10/2021 12:45:00 PM EDT [place] ([facility]) Name Value Range Interpretation Code Description Data Shari rce(s) Supporting Document(s) white blood count 7.3 10 4.0-10.0 White Blood Count [place] ([facility]) red blood count 5.21 10 4.00-5.40 Red Blood Count [facility] ([facility]) hemoglobin 15.1 g/dL 12.0-15.5 Hemoglobin [place] ([facility]) mean corpuscular HGB conc 33.7 g/dL 32.0-36.5 Mean Corpu scular HGB Conc [place] ([facility]) mean corpuscular hemoglobin 29.0 pg 27.0-33.0 Mean Cor puscular Hemoglobin [place] ([facility]) hematocrit 44.8 % 36.0-47.0 Hematocrit [facility] ([facility]) mean corpuscular volume 86.0 fL 80.0-96.0 Mean Corpusc ular Volume [place] ([facility]) platelet count, automated 296 10 150-450 Platelet C ount, Automated [place] ([facility]) nucleated red blood cell % 0.0 % 0-0 Nucleated Red Blood Cell % [facility] ([facility]) red cell distribution width 12.5 % 11.5-14.5 Red Cell Distribution Width [facility] ([facility]) ID Date Data Source [id number] 03/10/2021 12:45:00 PM EDT [facility] ([facility]) Name Value Range Interpretation Code Description Data Shari rce(s) Supporting Document(s) thyroid stimulating hormone 1.740 uIU/mL 0.358-3.740 Thyroid Stimulating Hormone [facility] ([facility]) ID Date Data Source [id number] 03/10/2021 12:45:00 PM EDT [facility]) Name Value Range Interpretation Code Description Data Shari rce(s) Supporting Document(s) lipase 96 U/L 73-393 Lipase [facility] ([facility]) ID Date Data Source [id number] 03/10/2021 12:45:00 PM EDT [facility] ([facility]) Name Value Range Interpretation Code Description Data Shari rce(s) Supporting Document(s) glucose, fasting 174 mg/dL 70-100 Above high normal Glucose, Fas ting [place] ([facility]) sodium level 141 mEq/L 136-145 Sodium Level [place] ([facility]) glomerular filtration rate > 60.0 >58 Glomerula r Filtration Rate [facility] ([facility]) creatinine for GFR 0.63 mg/dL 0.55-1.30 Creatinine for GF R [place] ([facility]) blood urea nitrogen 12 mg/dL 7-18 Blood Urea Nitro gen [place] ([facility]) chloride level 108 mEq/L 98-107 Above high normal Chloride Level [place] ([facility]) potassium serum 3.7 mEq/L 3.5-5.1 Potassium Serum [facility] NA ([facility]) carbon dioxide level 28 mEq/L 21-32 Carbon Dioxide Level [place] ([facility]) anion gap 5 mEq/L 8-16 Below low normal Anion Gap [place] ( [facility]) calcium level 9.5 mg/dL 8.5-10.1 Calcium Level [facility] ( [facility]) ID Date Data Source [id number] 03/10/2021 12:45:00 PM EDT [facility] ([facility]) Name Value Range Interpretation Code Description Data Shari rce(s) Supporting Document(s) AST/SGOT 117 U/L 7-37 Above high normal AST/SGOT [place] ([facility]) ALT/SGPT 140 U/L 12-78 Above high normal ALT/SGPT [facility] ([facility]) alkaline phosphatase 116 U/L 45-117 Alkaline Phosph atase [place] ([facility]) bilirubin,total 1.0 mg/dL 0.2-1.0 Bilirubin,total [facility] ([facility]) bilirubin,direct 0.3 mg/dL 0.0-0.2 Above high normal Bilirubin,di rect [place] ([facility]) total protein 7.2 gm/dL 6.4-8.2 Total Protein [place] ( [facility]) albumin/globulin ratio 1.2-2.2 Below low normal Albumin /globulin Ratio [place] ([facility]) albumin 3.5 gm/dL 3.2-5.2 Albumin [place] ([facility]) ID Date Data Source [id number] 03/10/2021 12:45:00 PM EDT [facility]) Name Value Range Interpretation Code Description Data Shari rce(s) Supporting Document(s) estimated average glucose 223 mg/dL 60-110 Above high norm al Estimated Average Glucose [facility] ([facility]) Hemoglobin A1c/Hemoglobin.total in Blood 9.4 % Hemoglobin a1C [facility]) ID Date Data Source [id number] 10/20/2020 01:45:00 PM EST [facility] ([facility]) Name Value Range Interpretation Code Description Data Shari rce(s) Supporting Document(s) SARS-CoV-2 (COVID-19) RNA [Presence] in Respiratory specimen by ASHLEE with probe detection not detected not detected Sars Cov 2 RNA [facility]) ID Date Data Source [id number] 10/20/2020 01:45:00 PM EST [facility]) Name Value Range Interpretation Code Description Data Shari rce(s) Supporting Document(s) SARS-CoV-2 (COVID-19) RNA [Presence] in Respiratory specimen by ASHLEE with probe detection not detected not detected Sars Cov 2 RNA [facility]) ID Date Data Source [id number] 10/20/2020 01:45:00 PM EST [facility]) Name Value Range Interpretation Code Description Data Shari rce(s) Supporting Document(s) SARS-CoV-2 (COVID-19) RNA [Presence] in Respiratory specimen by ASHLEE with probe detection not detected not detected Sars Cov 2 RNA [facility]) ID Date Data Source [id number] 10/20/2020 01:45:00 PM EST [facility]) Name Value Range Interpretation Code Description Data Shari rce(s) Supporting Document(s) SARS-CoV-2 (COVID-19) RNA [Presence] in Respiratory specimen by ASHLEE with probe detection not detected not detected Sars Cov 2 RNA [facility]) ID Date Data Source [id number] 10/20/2020 01:45:00 PM EST [facility] ([facility]) Name Value Range Interpretation Code Description Data Shari rce(s) Supporting Document(s) SARS-CoV-2 (COVID-19) RNA [Presence] in Respiratory specimen by ASHLEE with probe detection not detected not detected Sars Cov 2 RNA [facility] ([facility]) ID Date Data Source [id number] 07/30/2020 08:45:00 AM EST [facility] ([facility]) Name Value Range Interpretation Code Description Data Shari rce(s) Supporting Document(s) thyroid stimulating hormone 3.690 uIU/mL 0.358-3.740 Thyroid Stimulating Hormone [facility] ([facility]) ID Date Data Source [id number] 07/30/2020 08:45:00 AM EST [facility] ([facility]) Name Value Range Interpretation Code Description Data Shari rce(s) Supporting Document(s) triglycerides level 63 mg/dL <150 Triglycerides Le cheryl [place] ([facility]) HDL cholesterol 68 mg/dL >40 HDL Cholesterol [facility] ([facility]) non-HDL-C 88 mg/dL Non-hdl-c [place] ([facility]) cholesterol level 156 mg/dL <200 Cholesterol Level [place] ([facility]) Cholesterol in LDL [Mass/volume] in Serum or Plasma 75 mg/dL <1 00 LDL Cholesterol [facility] ([facility]) cholesterol risk ratio <5 Cholesterol R isk Ratio [facility] ([facility]) ID Date Data Source [id number] 07/30/2020 08:45:00 AM EST [facility]) Name Value Range Interpretation Code Description Data Shari rce(s) Supporting Document(s) creatinine for GFR 0.77 mg/dL 0.55-1.30 Creatinine for GF R [facility] ([facility]) glucose, fasting 131 mg/dL 70-100 Above high normal Glucose, Fas ting [facility] ([facility]) blood urea nitrogen 16 mg/dL 7-18 Blood Urea Nitro gen [facility] ([facility]) sodium level 141 mEq/L 136-145 Sodium Level [facility] ([facility]) glomerular filtration rate > 60.0 >58 Glomerula r Filtration Rate [facility] ([facility]) chloride level 105 mEq/L 98-107 Chloride Level [facility] ([facility]) potassium serum 3.8 mEq/L 3.5-5.1 Potassium Serum [facility] ([facility]) AST/SGOT 12 U/L 7-37 AST/SGOT [place] ([facility]) ALT/SGPT 28 U/L 12-78 ALT/SGPT [facility] ([facility]) carbon dioxide level 33 mEq/L 21-32 Above high normal Carbon D ioxide Level [facility] ([facility]) calcium level 9.4 mg/dL 8.5-10.1 Calcium Level [facility] ( [facility]) anion gap 3 mEq/L 8-16 Below low normal Anion Gap [facility] ( [facility]) albumin 4.0 gm/dL 3.2-5.2 Albumin [facility] ([facility]) alkaline phosphatase 112 U/L 45-117 Alkaline Phosph atase [facility] ([facility]) total protein 7.6 gm/dL 6.4-8.2 Total Protein [place] ( [facility]) bilirubin,total 1.1 mg/dL 0.2-1.0 Above high normal Bilirubin,tot al [place] ([facility]) albumin/globulin ratio 1.2-2.2 Below low normal Albumin /globulin Ratio [facility] ([facility]) ID Date Data Source [id number] 07/30/2020 08:45:00 AM EST [facility] ([facility]) Name Value Range Interpretation Code Description Data Shari rce(s) Supporting Document(s) Hemoglobin A1c/Hemoglobin.total in Blood 6.6 % Hemoglobin a1C [facility] ([facility]) estimated average glucose 143 mg/dL 60-110 Above high norm al Estimated [facility] Date Data Source [id number] 07/30/2020 08:45:00 AM EST [place] ([facility]) Name Value Range Interpretation Code Description Data Shari rce(s) Supporting Document(s) thyroid stimulating hormone 3.690 uIU/mL 0.358-3.740 Thyroid Stimulating Hormone [facility] ([facility]) ID Date Data Source [id number] 07/30/2020 08:45:00 AM EST [facility] ([facility]) Name Value Range Interpretation Code Description Data Shari rce(s) Supporting Document(s) triglycerides level 63 mg/dL <150 Triglycerides Le cheryl [facility] ([facility]) cholesterol level 156 mg/dL <200 Cholesterol Level [place] ([facility]) HDL cholesterol 68 mg/dL >40 HDL Cholesterol AT[facility] ([facility]) Cholesterol in LDL [Mass/volume] in Serum or Plasma 75 mg/dL <1 00 LDL Cholesterol [place] ([facility]) non-HDL-C 88 mg/dL Non-hdl-c [facility] ([facility]) cholesterol risk ratio <5 Cholesterol R isk Ratio [facility] ([facility]) ID Date Data Source [id number] 07/30/2020 08:45:00 AM EST [place] ([facility]) Name Value Range Interpretation Code Description Data Shari rce(s) Supporting Document(s) blood urea nitrogen 16 mg/dL 7-18 Blood Urea Nitro gen [facility] ([facility]) glucose, fasting 131 mg/dL 70-100 Above high normal Glucose, Fas ting [facility] ([facility]) sodium level 141 mEq/L 136-145 Sodium Level [facility] ([facility]) potassium serum 3.8 mEq/L 3.5-5.1 Potassium Serum ATHE NA ([facility]) creatinine for GFR 0.77 mg/dL 0.55-1.30 Creatinine for GF R [place] ([facility]) glomerular filtration rate > 60.0 >58 Glomerula r Filtration Rate [facility] ([facility]) anion gap 3 mEq/L 8-16 Below low normal Anion Gap [facility] ( [facility]) chloride level 105 mEq/L 98-107 Chloride Level [facility] ([facility]) calcium level 9.4 mg/dL 8.5-10.1 Calcium Level [place] ( [facility]) carbon dioxide level 33 mEq/L 21-32 Above high normal Carbon D ioxide Level [facility] ([facility]) alkaline phosphatase 112 U/L 45-117 Alkaline Phosph atase [facility] ([facility]) AST/SGOT 12 U/L 7-37 AST/SGOT [facility] ([facility]) bilirubin,total 1.1 mg/dL 0.2-1.0 Above high normal Bilirubin,tot al [place] ([facility]) ALT/SGPT 28 U/L 12-78 ALT/SGPT [place] ([facility]) albumin 4.0 gm/dL 3.2-5.2 Albumin [facility] ([facility]) total protein 7.6 gm/dL 6.4-8.2 Total Protein [place] ( [facility]) albumin/globulin ratio 1.2-2.2 Below low normal Albumin /globulin Ratio [facility] ([facility]) ID Date Data Source [id number] 07/30/2020 08:45:00 AM EST [place] ([facility]) Name Value Range Interpretation Code Description Data Shari rce(s) Supporting Document(s) Hemoglobin A1c/Hemoglobin.total in Blood 6.6 % Hemoglobin a1C [facility] ([facility]) estimated average glucose 143 mg/dL 60-110 Above high norm al Estimated Average Glucose [facility] ([facility]) ID Date Data Source [id number] 07/30/2020 08:45:00 AM EST [facility] ([facility]) Name Value Range Interpretation Code Description Data Shari rce(s) Supporting Document(s) thyroid stimulating hormone 3.690 uIU/mL 0.358-3.740 Thyroid Stimulating Hormone [facility] ([facility]) ID Date Data Source [id number] 07/30/2020 08:45:00 AM EST [place] ([facility]) Name Value Range Interpretation Code Description Data Shari rce(s) Supporting Document(s) triglycerides level 63 mg/dL <150 Triglycerides Le cheryl [facility] ([facility]) cholesterol level 156 mg/dL <200 Cholesterol Level [place] ([facility]) HDL cholesterol 68 mg/dL >40 HDL Cholesterol ATHE NA ([facility]) non-HDL-C 88 mg/dL Non-hdl-c [place] ([facility]) cholesterol risk ratio <5 Cholesterol R isk Ratio [facility] ([facility]) Cholesterol in LDL [Mass/volume] in Serum or Plasma 75 mg/dL <1 00 LDL Cholesterol [facility] ([facility]) ID Date Data Source [id number] 07/30/2020 08:45:00 AM EST [place] ([facility]) Name Value Range Interpretation Code Description Data Shari rce(s) Supporting Document(s) glucose, fasting 131 mg/dL 70-100 Above high normal Glucose, Fas ting [facility] ([facility]) glomerular filtration rate > 60.0 >58 Glomerula r Filtration Rate [facility] ([facility]) sodium level 141 mEq/L 136-145 Sodium Level [facility] ([facility]) blood urea nitrogen 16 mg/dL 7-18 Blood Urea Nitro gen [facility] ([facility]) creatinine for GFR 0.77 mg/dL 0.55-1.30 Creatinine for GF R [place] ([facility]) calcium level 9.4 mg/dL 8.5-10.1 Calcium Level [place] ( [facility]) potassium serum 3.8 mEq/L 3.5-5.1 Potassium Serum ATHE NA ([facility]) carbon dioxide level 33 mEq/L 21-32 Above high normal Carbon D ioxide Level [facility] ([facility]) anion gap 3 mEq/L 8-16 Below low normal Anion Gap [facility] ( [facility]) chloride level 105 mEq/L 98-107 Chloride Level [facility] ([facility]) alkaline phosphatase 112 U/L 45-117 Alkaline Phosph atase [facility] ([facility]) ALT/SGPT 28 U/L 12-78 ALT/SGPT [place] ([facility]) bilirubin,total 1.1 mg/dL 0.2-1.0 Above high normal Bilirubin,tot al [place] ([facility]) AST/SGOT 12 U/L 7-37 AST/SGOT [facility] ([facility]) albumin/globulin ratio 1.2-2.2 Below low normal Albumin /globulin Ratio [facility] ([facility]) albumin 4.0 gm/dL 3.2-5.2 Albumin [facility] ([facility]) total protein 7.6 gm/dL 6.4-8.2 Total Protein [place] ( [facility]) ID Date Data Source [id number] 07/30/2020 08:45:00 AM EST [place] ([facility]) Name Value Range Interpretation Code Description Data Shari rce(s) Supporting Document(s) Hemoglobin A1c/Hemoglobin.total in Blood 6.6 % Hemoglobin a1C [facility] ([facility]) estimated average glucose 143 mg/dL 60-110 Above high norm al Estimated Average Glucose [facility] ([facility]) ID Date Data Source [id number] 07/30/2020 08:45:00 AM EST [place] ([facility]) Name Value Range Interpretation Code Description Data Shari rce(s) Supporting Document(s) thyroid stimulating hormone 3.690 uIU/mL 0.358-3.740 Thyroid Stimulating Hormone [facility] ([facility]) ID Date Data Source [id number] 07/30/2020 08:45:00 AM EST [place] ([facility]) Name Value Range Interpretation Code Description Data Shari rce(s) Supporting Document(s) cholesterol level 156 mg/dL <200 Cholesterol Level [place] ([facility]) HDL cholesterol 68 mg/dL >40 HDL Cholesterol ATHE NA ([facility]) triglycerides level 63 mg/dL <150 Triglycerides Le cheryl [facility] ([facility]) Cholesterol in LDL [Mass/volume] in Serum or Plasma 75 mg/dL <1 00 LDL Cholesterol [place] ([facility]) non-HDL-C 88 mg/dL Non-hdl-c [place] ([facility]) cholesterol risk ratio <5 Cholesterol R isk Ratio [facility] ([facility]) ID Date Data Source [id number] 07/30/2020 08:45:00 AM EST [place] ([facility]) Name Value Range Interpretation Code Description Data Shari rce(s) Supporting Document(s) blood urea nitrogen 16 mg/dL 7-18 Blood Urea Nitro gen [place] ([facility]) glucose, fasting 131 mg/dL 70-100 Above high normal Glucose, Fas ting [facility] ([facility]) creatinine for GFR 0.77 mg/dL 0.55-1.30 Creatinine for GF R [place] ([facility]) potassium serum 3.8 mEq/L 3.5-5.1 Potassium Serum ATHE NA ([facility]) sodium level 141 mEq/L 136-145 Sodium Level [facility] ([facility]) glomerular filtration rate > 60.0 >58 Glomerula r Filtration Rate [place] ([facility]) carbon dioxide level 33 mEq/L 21-32 Above high normal Carbon D ioxide Level [facility] ([facility]) anion gap 3 mEq/L 8-16 Below low normal Anion Gap [place] ( [facility]) chloride level 105 mEq/L 98-107 Chloride Level [place] ([facility]) alkaline phosphatase 112 U/L 45-117 Alkaline Phosph atase [facility] ([facility]) AST/SGOT 12 U/L 7-37 AST/SGOT [place] ([facility]) calcium level 9.4 mg/dL 8.5-10.1 Calcium Level [facility] ( [facility]) ALT/SGPT 28 U/L 12-78 ALT/SGPT [facility] ([facility]) bilirubin,total 1.1 mg/dL 0.2-1.0 Above high normal Bilirubin,tot al [facility] ([facility]) total protein 7.6 gm/dL 6.4-8.2 Total Protein [place] ( [facility]) albumin/globulin ratio 1.2-2.2 Below low normal Albumin /globulin Ratio [facility] ([facility]) albumin 4.0 gm/dL 3.2-5.2 Albumin [facility] ([facility]) ID Date Data Source [id number] 07/30/2020 08:45:00 AM EST [place] ([facility]) Name Value Range Interpretation Code Description Data Shari rce(s) Supporting Document(s) estimated average glucose 143 mg/dL 60-110 Above high norm al Estimated Average Glucose [facility] ([facility]) Hemoglobin A1c/Hemoglobin.total in Blood 6.6 % Hemoglobin a1C [facility] ([facility]) ID Date Data Source [id number] 07/30/2020 08:45:00 AM EST [place] ([facility]) Name Value Range Interpretation Code Description Data Shari rce(s) Supporting Document(s) thyroid stimulating hormone 3.690 uIU/mL 0.358-3.740 Thyroid Stimulating Hormone [facility] ([facility]) ID Date Data Source [id number] 07/30/2020 08:45:00 AM EST [place] ([facility]) Name Value Range Interpretation Code Description Data Shari rce(s) Supporting Document(s) cholesterol level 156 mg/dL <200 Cholesterol Level [place] ([facility]) HDL cholesterol 68 mg/dL >40 HDL Cholesterol ATHE NA ([facility]) triglycerides level 63 mg/dL <150 Triglycerides Le cheryl [facility] ([facility]) non-HDL-C 88 mg/dL Non-hdl-c [place] ([facility]) cholesterol risk ratio <5 Cholesterol R isk Ratio [facility] ([facility]) Cholesterol in LDL [Mass/volume] in Serum or Plasma 75 mg/dL <1 00 LDL Cholesterol [place] ([facility]) ID Date Data Source [id number] 07/30/2020 08:45:00 AM EST [place] ([facility]) Name Value Range Interpretation Code Description Data Shari rce(s) Supporting Document(s) glucose, fasting 131 mg/dL 70-100 Above high normal Glucose, Fas ting [facility] ([facility]) creatinine for GFR 0.77 mg/dL 0.55-1.30 Creatinine for GF R [place] ([facility]) blood urea nitrogen 16 mg/dL 7-18 Blood Urea Nitro gen [place] ([facility]) glomerular filtration rate > 60.0 >58 Glomerula r Filtration Rate [place] ([facility]) potassium serum 3.8 mEq/L 3.5-5.1 Potassium Serum ATHE NA ([facility]) chloride level 105 mEq/L 98-107 Chloride Level [facility] ([facility]) sodium level 141 mEq/L 136-145 Sodium Level [place] ([facility]) carbon dioxide level 33 mEq/L 21-32 Above high normal Carbon D ioxide Level [facility] ([facility]) anion gap 3 mEq/L 8-16 Below low normal Anion Gap [place] ( [facility]) ALT/SGPT 28 U/L 12-78 ALT/SGPT [place] ([facility]) AST/SGOT 12 U/L 7-37 AST/SGOT [place] ([facility]) calcium level 9.4 mg/dL 8.5-10.1 Calcium Level [place] ( [facility]) alkaline phosphatase 112 U/L 45-117 Alkaline Phosph atase [place] ([facility]) bilirubin,total 1.1 mg/dL 0.2-1.0 Above high normal Bilirubin,tot al [place] ([facility]) albumin 4.0 gm/dL 3.2-5.2 Albumin [place] ([facility]) total protein 7.6 gm/dL 6.4-8.2 Total Protein [place] ( [facility]) albumin/globulin ratio 1.2-2.2 Below low normal Albumin /globulin Ratio [facility] ([facility]) ID Date Data Source [id number] 07/30/2020 08:45:00 AM EST [place] ([facility]) Name Value Range Interpretation Code Description Data Shari rce(s) Supporting Document(s) Hemoglobin A1c/Hemoglobin.total in Blood 6.6 % Hemoglobin a1C [place] ([facility]) estimated average glucose 143 mg/dL 60-110 Above high norm al Estimated Average Glucose [place] ([facility]) ID Date Data Source [id number] 07/30/2020 08:45:00 AM EST [place] ([facility]) Name Value Range Interpretation Code Description Data Shari rce(s) Supporting Document(s) thyroid stimulating hormone 3.690 uIU/mL 0.358-3.740 Thyroid Stimulating Hormone [facility] ([facility]) ID Date Data Source [id number] 07/30/2020 08:45:00 AM EST [facility] ([facility]) Name Value Range Interpretation Code Description Data Shari rce(s) Supporting Document(s) triglycerides level 63 mg/dL <150 Triglycerides Le cheryl [place] ([facility]) cholesterol level 156 mg/dL <200 Cholesterol Level [place] ([facility]) Cholesterol in LDL [Mass/volume] in Serum or Plasma 75 mg/dL <1 00 LDL Cholesterol [place] ([facility]) non-HDL-C 88 mg/dL Non-hdl-c [place] ([facility]) HDL cholesterol 68 mg/dL >40 HDL Cholesterol ATHE NA ([facility]) cholesterol risk ratio <5 Cholesterol R isk Ratio [place] ([facility]) ID Date Data Source [id number] 07/30/2020 08:45:00 AM EST [place] ([facility]) Name Value Range Interpretation Code Description Data Shari rce(s) Supporting Document(s) blood urea nitrogen 16 mg/dL 7-18 Blood Urea Nitro gen [place] ([facility]) creatinine for GFR 0.77 mg/dL 0.55-1.30 Creatinine for GF R [place] ([facility]) glucose, fasting 131 mg/dL 70-100 Above high normal Glucose, Fas ting [place] ([facility]) glomerular filtration rate > 60.0 >58 Glomerula r Filtration Rate [place] ([facility]) sodium level 141 mEq/L 136-145 Sodium Level [place] ([facility]) potassium serum 3.8 mEq/L 3.5-5.1 Potassium Serum ATHE NA ([facility]) chloride level 105 mEq/L 98-107 Chloride Level [place] ([facility]) carbon dioxide level 33 mEq/L 21-32 Above high normal Carbon D ioxide Level [place] ([facility]) calcium level 9.4 mg/dL 8.5-10.1 Calcium Level [place] ( [facility]) anion gap 3 mEq/L 8-16 Below low normal Anion Gap [place] ( [facility]) bilirubin,total 1.1 mg/dL 0.2-1.0 Above high normal Bilirubin,tot al [place] ([facility]) AST/SGOT 12 U/L 7-37 AST/SGOT [place] ([facility]) ALT/SGPT 28 U/L 12-78 ALT/SGPT [place] ([facility]) alkaline phosphatase 112 U/L 45-117 Alkaline Phosph atase [place] ([facility]) total protein 7.6 gm/dL 6.4-8.2 Total Protein [place] ( [facility]) albumin 4.0 gm/dL 3.2-5.2 Albumin [place] ([facility]) albumin/globulin ratio 1.2-2.2 Below low normal Albumin /globulin Ratio [facility] ([facility]) ID Date Data Source [id number] 07/30/2020 08:45:00 AM EST [facility] ([facility]) Name Value Range Interpretation Code Description Data Shari rce(s) Supporting Document(s) estimated average glucose 143 mg/dL 60-110 Above high norm al Estimated Average Glucose [place] ([facility]) Hemoglobin A1c/Hemoglobin.total in Blood 6.6 % Hemoglobin a1C [facility] ([facility]) ID Date Data Source [id number] 07/30/2020 08:45:00 AM EST [place] ([facility]) Name Value Range Interpretation Code Description Data Shari rce(s) Supporting Document(s) thyroid stimulating hormone 3.690 uIU/mL 0.358-3.740 Thyroid Stimulating Hormone [place] ([facility]) ID Date Data Source [id number] 07/30/2020 08:45:00 AM EST [place] ([facility]) Name Value Range Interpretation Code Description Data Shari rce(s) Supporting Document(s) triglycerides level 63 mg/dL <150 Triglycerides Le cheryl [facility] ([facility]) cholesterol risk ratio <5 Cholesterol R isk Ratio [place] ([facility]) HDL cholesterol 68 mg/dL >40 HDL Cholesterol [facility] ([facility]) Cholesterol in LDL [Mass/volume] in Serum or Plasma 75 mg/dL <1 00 LDL Cholesterol [place] ([facility]) cholesterol level 156 mg/dL <200 Cholesterol Level [place] ([facility]) non-HDL-C 88 mg/dL Non-hdl-c [place] ([facility]) ID Date Data Source [id number] 07/30/2020 08:45:00 AM EST [place] ([facility]) Name Value Range Interpretation Code Description Data Shari rce(s) Supporting Document(s) glucose, fasting 131 mg/dL 70-100 Above high normal Glucose, Fas ting [facility] ([facility]) blood urea nitrogen 16 mg/dL 7-18 Blood Urea Nitro gen [place] ([facility]) glomerular filtration rate > 60.0 >58 Glomerula r Filtration Rate [place] ([facility]) sodium level 141 mEq/L 136-145 Sodium Level [facility] ([facility]) creatinine for GFR 0.77 mg/dL 0.55-1.30 Creatinine for GF R [place] ([facility]) potassium serum 3.8 mEq/L 3.5-5.1 Potassium Serum AT[facility] NA ([facility]) carbon dioxide level 33 mEq/L 21-32 Above high normal Carbon D ioxide Level [place] ([facility]) anion gap 3 mEq/L 8-16 Below low normal Anion Gap [place] ( [facility]) chloride level 105 mEq/L 98-107 Chloride Level [place] ([facility]) AST/SGOT 12 U/L 7-37 AST/SGOT [place] ([facility]) alkaline phosphatase 112 U/L 45-117 Alkaline Phosph atase [facility] ([facility]) calcium level 9.4 mg/dL 8.5-10.1 Calcium Level [place] ( [facility]) ALT/SGPT 28 U/L 12-78 ALT/SGPT [place] ([facility]) bilirubin,total 1.1 mg/dL 0.2-1.0 Above high normal Bilirubin,tot al [place] ([facility]) total protein 7.6 gm/dL 6.4-8.2 Total Protein [place] ( [facility]) albumin 4.0 gm/dL 3.2-5.2 Albumin [place] ([facility]) albumin/globulin ratio 1.2-2.2 Below low normal Albumin /globulin Ratio [facility] ([facility]) ID Date Data Source [id number] 07/30/2020 08:45:00 AM EST [place] ([facility]) Name Value Range Interpretation Code Description Data Shari rce(s) Supporting Document(s) Hemoglobin A1c/Hemoglobin.total in Blood 6.6 % Hemoglobin a1C [place] ([facility]) estimated average glucose 143 mg/dL 60-110 Above high norm al Estimated Average Glucose [facility] ([facility]) ID Date Data Source [id number] 06/01/2020 08:43:34 AM EDT [facility] Measurements & CalculationsHeight: 67 inches (5 ft. 7 in.) 170.18 cm Weight: 292 pounds 8 oz. 132.95 kg Body Mass Index (BMI): 45.98BMI Interpretation: Morbidly ObeseBody Surface Area (BSA): 2.38Weight Management Education Done (Nutrition/Physical Activity)Vital SignsTemperature: 96.4FPulse Rate: 71 beats/minuteRespiratory Rate: 14 respirations/minuteBlood Pressure: 112/77 O2 Saturation: 95% Vital Signs performed by: Nanci Yang LPN, June 01, 2020 8:44 AMVital Signs performed by: Nanci Yang LPN, June 01, 2020 8:44 AMInitial Intake Information From: patientRoom #: 12Infectious Disease / Travel ScreeningRecent travel for you or any close contacts? NoHave you had any close contact with anyone diagnosed with or under investigation for COVID-19 (coronavirus)? NoFever? NoRespiratory symptoms: cough, cold, congestion, shortness of breath, difficulty breathing? NoLoss of smell? NoLoss of taste? NoSmoking, Tobacco, Vaping or Smoke Exposure StatusSmoke Status: never smokerTobacco Use: NoDo you vape? NoPassive Smoke Exposure: YesPassive Smoke Exposure comments: FamilyMenstrual HistoryAny possibility of ? NoComments: AblasionHealthcare HistorySince your last office visit...Have you been admitted to the hospital? NoHave you been to an emergency room (ER) or urgent care clinic? NoHave you seen another healthcare provider? Yes - TLS,Podiatry,Dr Akers @ ,OBGYN Have you seen a dentist? Yes - [place] performed by: Nanci Yang LPN, June 01, 2020 8:48 AMRate Your HealthIn general, would you say your health is? GoodPain AssessmentAre you currently having any pain which... You would like your provider to address? No Affects your activity level? NoDepression Screening - PHQ-2Over the last two weeks, have you... Had little interest or pleasure in doing things? Not at all Been feeling down, depressed, or hopeless? Not at all PHQ-2 Score: 0Anxiety Screening - JOSE-2Over the last two weeks, have you been... Feeling nervous, anxious, or on edge? Not at all Unable to stop or control worrying? Not at all JOSE-2 Score: 0Food InsecurityWithin the past year...Did you worry whe ther your food would run out before you got money to buy more? Never trueWas there a time when the food you bought didn't last and you didn't have money to get more? Never trueScreening, Brief Intervention, & Referral to Treatment (SBIRT)Pre-Screening Questions How many times have you have 4 or more drinks in a day? 0How many times have you used an illegal drug or used a prescription medication for a non-medical reason? 0Performed by: Nanci Yang LPN, June 01, 2020 8:52 AMPatient History Medical History:Diabetes - Type IIHypertensionDepressionAnxietyBipolarSurgical History:D + Csurgery for endometrosisCesarean sectionFamily History:Diabetes (Mother)Hypertension (Father)Social/Personal History: Chief ComplaintPossible staph infection room 12History of Present Illness (HPI)49 YO female here for concerns of rash/ redness to abdominal skin folds and bilat groin. Pt rash started about one week ago. Pt denies fevers, pt denies drainage. HPI performed by: Bridgette RAMIREZ, June 01, 2020 9:28 AMTransitions of Care InboundProblem ReviewProblem List was reviewed and/or updated during this visit.Medication Reconciliation & ReviewMedication List was reviewed and/or updated during this visit, including review of any [id number]-rxdscbu medications, herbal therapies, and/or supplements.Allergy ReviewAllergy List was reviewed and/or updated during this visit.Adult Preventive CareProvider Calculated and Reviewed all Clinical Protocols for patient today. Labs/Meds/Other Counseling-Nutrition and Physical Activity:BMI Interpretation: Morbidly Obese (06/01/2020) Counseling: Done (05/18) Physical Activity: Done (06/01/2020)Review of Systems General: Denies loss of appetite, chills, dizziness, fatigue, fever, continued fever, headache, feeling ill, sweats, night sweats, sleep disturbances, weight loss. Eyes: Denies blurring of vision, double vision, irritation, discharge, vision loss, eye pain, eye swelling, droopy eyelid, sensitivity to light, redness, itching. Ears/Nose/Throat: Denies earache, ear discharge, ringing in ears, decreased hearing, nasal congestion, nosebleeds, runny nose, sore throat, hoarseness, difficulty swallowing, dry mouth, tooth pain, bleeding gums, swollen glands. Cardiovascular: Denies chest pain, palpitations, feeling faint, trouble breathing w/exertion, SOB upon lying down, SOB at night, peripheral edema, elevated blood pressure, decreased heart rate. Respiratory: Denies cough, difficulty breathing, shortness of breath, excessive sputum, coughing up blood, wheezing, chest pain. Breast: Denies discoloration, tenderness, breast changes, breast lump, nipple discharge. Gastrointestinal: Denies nausea, vomiting, bleeding, burning, itching, irritation, cramps, diarrhea, constipation. Genitourinary: Denies urinary incontinence, pain with urination, burning with urination, urinary frequency, urinary hesitancy, urinary urgency, urinary urgency at night, incomplete emptying, blood in urine. Musculoskeletal: Denies back pain, joint pain, leg pain, other pain-see comments, joint swelling, body aches, muscle aches, muscle cramps, muscle weakness, stiffness, recent injury. Skin: Complains of rash, redness, itching. Denies hives, dryness, nail changes, suspicious lesions, athlete's foot, rash on palms, rash on bottom of feet. abdominal skin folds Neurologic: Denies muscle impairment, weakness, numbness/tingling, seizures, slurred speech, feeling faint, tremors, vertigo, paralysis on one side, paralysis on both sides. Psychiatric: Denies depression, anxiety, memory loss, mental disturbance, suicidal ideation, homicidal ideation, hallucinations, paranoia, feeling stressed, hearing voices. Physical ExamGeneral Appearance: well nourished, well hydrated, no acute distressEyes, External: conjunctivae and lids normal, EOMIRespiratory, Auscultation: clear to auscultation bilaterally; no rales, rhonchi, or wheezesRespiratory, Effort: no intercostal retractions or use of accessory musclesCardiovascular, Auscultation: S1, S2 audible; no murmur, rub, or gallop; RRRPeripheral Circulation: no clubbing, cyanosis, edema, or varicositiesAbdomen: soft, non-tender, no masses, bowel sounds normalGait & Station: normalSkin, Inspection: rash/ redness to abdomominal skin folds and bilat groinOrientation: oriented to time, place, and personMood & Affect: no depression, anxiety, or agitationJudgment & Insight: seems intactCare Management Plan Transitions of CareInboundRate Your HealthIn general, would you say your health is? GoodAssessment & Plan Problems:Added: Intertrigo (ICD-695.89) (GCU10-N92.4) Assessment: Instructions: We have sent a prescription to your pharmacy today. Please use as prescribed. Please shower / bathe twice with mild unsented soap prior to applying medication. Please monitor for changes. if symptoms worsen, please return to clinic or the ER.Assessment not Saved Intertrigo (WQV81-E08.4): Comment OnlyExtensive abdominal skin folds and bilat groin. Instructions: We have sent a prescription to your pharmacy today. Please use as prescribed. Please shower / bathe twice with mild unsented soap prior to applying medication. Please monitor for changes. if symptoms worsen, please return to clinic or the ER.Patient Instructions/Care Plan: Intertrigo: We have sent a prescription to your pharmacy today. Please use as prescribed. Please shower / bathe twice with mild unsented soap prior to applying medication. Please monitor for changes. if symptoms worsen, please return to clinic or the ER. Plan developed in collaboration with patient and/or familyMedications:NYSTATIN [id number] UNIT/GM EXTERNAL POWDERNYSTATIN [id number] UNIT/GM EXTERNAL OINTMENTZYRTEC ALLERGY 10 MG ORAL CAPSULELIPITOR 40 MG ORAL TABLETK-TAB 10 MEQ ORAL TABLET EXTENDED RELEASEHYDROXYZINE HCL 25 MG ORAL TABLETAUSTEDO TABLETABILIFY 10 MG ORAL TABLETTRULICITY 1.5 MG/0.5ML SUBCUTANEOUS SOLUTION PEN-INJECTORGENTEAL TEARS 0.1-0.2-0.3 % OPHTHALMIC SOLUTIONMECLIZINE HCL 25 MG ORAL TABLETAMLODIPINE BESYLATE 5 MG ORAL TABLETHYDROCHLOROTHIAZIDE 25 MG ORAL TABLETCELEXA 40 MG ORAL TABLETALCOHOL WIPES 70 % PADBD INSULIN SYRINGE ULTRAFINE 31G X 5/16" 0.5 MLADMELOG 100 UNIT/ML SUBCUTANEOUS SOLUTIONNYSTATIN [id number] UNIT/GM EXTERNAL OINTMENTMELOXICAM 15 MG ORAL TABLETKLONOPIN 1 MG ORAL TABLETCETIRIZINE HCL 10 MG ORAL TABLETFLONASE 50 MCG/ACT NASAL SUSPENSIONBLOOD GLUCOSE MONITOR SYSTEM W/DEVICE KITPEN NEEDLES 31G X 5 MMBLOOD GLUCOSE TEST IN VITRO STRIPVITAMIN D3 2000 UNIT ORAL TABLETFEOSOL 325 (65 FE) MG ORAL TABLETFOLIC ACID 1 MG ORAL TABLETASPIR-81 81 MG ORAL TABLET DELAYED RELEASEBASAGLAR KWIKPEN 100 UNIT/ML SUBCUTANEOUS SOLUTION PEN-INJECTORLEVOTHYROXINE SODIUM 88 MCG ORAL TABLETOMEPRAZOLE 20 MG ORAL CAPSULE DELAYED RELEASETOPROL XL 50 MG ORAL TABLET EXTENDED RELEASE 24 HOURMedication Changes:New Prescription:NYSTATIN [id number] UNIT/GM EXTERNAL OINTMENT-apply to affected areas twice daily as needed. abdominal skin folds and bilat groin. Qty: 3[Tube] Refills: 2 Method: ElectronicNYSTATIN [id number] UNIT/GM EXTERNAL POWDER-apply to affected areas twice daily as needed. abdominal skin folds and bilat groin Qty: 2[Container] Refills: 2 Method: ElectronicAllergies:SULFA (Critical)* IMMODIUM (Critical)* JANUVIA AND METFORMIN (Critical)CLINDAMYCIN HCL (CLINDAMYCIN HCL CAPS) (Critical)* LISINOPRIL (Mild)Orders:Adult - Ofc Vst, EST, Level III [CPT- 91566] Follow-Up Return to clinic: as scheduled and as needed Clinical Visit Summary CompletedMedications:NYSTATIN [id number] UNIT/GM EXTERNAL POWDER (NYSTATIN) apply to affected areas twice daily as needed. abdominal skin folds and bilat groin #2[Container] x 2 Route:EXTERNAL Entered and Authorized by: Bridgette RAMIREZ Method used: Electronically to [facility]* (retail) [address] [place] [address] Note to Pharmacy: Route: EXTERNAL; Indications: INTERTRIGO RxID: [id number] 10 0000 UNIT/GM EXTERNAL OINTMENT (NYSTATIN) apply to affected areas twice daily as needed. abdominal skin folds and bilat groin. #3[Tube] x 2 Route:EXTERNAL Entered and Authorized by: Bridgette RAMIREZ Method used: Electronically to [facility]* (retail) [address] [place] [address] Note to Pharmacy: Route: EXTERNAL; Indications: INTERTRIGO RxID: [id number] signed by Bridgette RAMIREZ on 06/01/2020 at 9:52 AM Name Value Range Interpretation Code Description Data Shari rce(s) Supporting Document(s) ID Date Data Source [id number] 05/19/2020 08:30:30 AM EDT [facility] Name Value Range Interpretation Code Description Data Shari rce(s) Supporting Document(s) HGBA1C 6.4 % [facility] Procedure Social History Code Duration Value Status Description Data Source(s ) Smoking 07/04/2021 12:00:00 AM EDT Never Smoked Cigarettes com pleted Never Smoked Cigarettes MEDENT ([facility]) Smoking 03/07/2021 12:00:00 AM EDT Never Smoker completed Never S moker eCW1 ([facility]) Smoking 03/07/2021 12:00:00 AM EDT Never Smoker completed Never S moker eCW1 ([facility]) Smoking 03/07/2021 12:00:00 AM EDT Never Smoker completed Never S moker eCW1 ([facility]) Smoking 11/10/2020 12:00:00 AM EST Never Smoker completed Never S moker eCW1 ([facility]) Smoking 11/10/2020 12:00:00 AM EST Never Smoker completed Never S moker eCW1 ([facility]) Smoking 11/10/2020 12:00:00 AM EST Never Smoker completed Never S moker eCW1 ([facility]) Smoking 08/11/2020 12:00:00 AM EST Patient has never smoked co mpleted Patient has never smoked MEDENT ([facility], ) Vital Signs ID Date Data Source UNK Name Value Range Interpretation Code Description Data Source(s) Body height 66 [in_i] 66 [in_i] MEDENT ([facility] ) 5'6" Systolic blood pressure 126 mm[Hg] 126 mm[Hg] M EDENT ([facility]) Diastolic blood pressure 82 mm[Hg] 82 mm[Hg] MEDENT ([facility]) Body weight 292.00 [lb_av] 292.00 [lb_av] MEDEN T ([facility]) Heart rate 88 /min 88 /min MEDENT ([facility]) Body mass index (BMI) [Ratio] 47.1 kg/m2 47.1 k g/m2 MEDENT ([facility]) Oxygen saturation in Arterial blood by Pulse oximetry 95 % 95 % MEDENT ([facility]) Body weight 4740 [oz_av] 4740 [oz_av] BREONNA ([facility]) Diastolic blood pressure 83 mm[Hg] 83 mm[Hg] BREONNA ([facility]) Body height 67 [in_i] 67 [in_i] BREONNA ([facility]) Body mass index (BMI) [Ratio] 46.4 kg/m2 46.4 k g/m2 BREONNA ([facility]) Systolic blood pressure 130 mm[Hg] 130 mm[Hg] A [facility] ([facility]) Diastolic blood pressure 82 mm[Hg] 82 mm[Hg] BREONNA ([facility]) Body height 67 [in_i] 67 [in_i] BREONNA ([facility]) Body mass index (BMI) [Ratio] 46.4 kg/m2 46.4 k g/m2 BREONNA ([facility]) Systolic blood pressure 125 mm[Hg] 125 mm[Hg] [facility] Body weight 4736 [oz_av] 4736 [oz_av] BREONNA ([facility]) Body height 67 [in_i] 67 [in_i] BREONNA ([facility]) Systolic blood pressure 125 mm[Hg] 125 mm[Hg] A [facility] ([facility]) Body mass index (BMI) [Ratio] 46.4 kg/m2 46.4 k g/m2 BREONNA ([facility]) Body weight 4736 [oz_av] 4736 [oz_av] BREONNA ([facility]) Diastolic blood pressure 82 mm[Hg] 82 mm[Hg] BREONNA ([facility]) Diastolic blood pressure 86 mm[Hg] 86 mm[Hg] BREONNA ([facility]) Body height 67 [in_i] 67 [in_i] BREONNA ([facility]) Body mass index (BMI) [Ratio] 46.7 kg/m2 46.7 k g/m2 BREONNA ([facility]) Systolic blood pressure 130 mm[Hg] 130 mm[Hg] [facility] Body weight 4774 [oz_av] 4774 [oz_av] BREONNA ([facility]) Diastolic blood pressure 86 mm[Hg] 86 mm[Hg] BREONNA ([facility]) Body weight 4774 [oz_av] 4774 [oz_av] BREONNA ([facility]) Body height 67 [in_i] 67 [in_i] BREONNA ([facility]) Body mass index (BMI) [Ratio] 46.7 kg/m2 46.7 k g/m2 BREONNA ([facility]) Systolic blood pressure 130 mm[Hg] 130 mm[Hg] [facility] Body weight 4774 [oz_av] 4774 [oz_av] BREONNA ([facility]) Diastolic blood pressure 86 mm[Hg] 86 mm[Hg] BREONNA ([facility]) Body height 67 [in_i] 67 [in_i] BREONNA ([facility]) Body mass index (BMI) [Ratio] 46.7 kg/m2 46.7 k g/m2 BREONNA ([facility]) Systolic blood pressure 130 mm[Hg] 130 mm[Hg] [facility] Diastolic blood pressure 86 mm[Hg] 86 mm[Hg] BREONNA ([facility]) Body height 67 [in_i] 67 [in_i] BREONNA ([facility]) Body mass index (BMI) [Ratio] 46.7 kg/m2 46.7 k g/m2 BREONNA ([facility]) Systolic blood pressure 130 mm[Hg] 130 mm[Hg] [facility] Body weight 4774 [oz_av] 4774 [oz_av] BREONNA ([facility]) Diastolic blood pressure 77 mm[Hg] 77 mm[Hg] BREONNA ([facility]) Body height 67 [in_i] 67 [in_i] BREONNA ([facility]) Body mass index (BMI) [Ratio] 46 kg/m2 46 kg/ m2 BREONNA ([facility]) Systolic blood pressure 118 mm[Hg] 118 mm[Hg] [facility] Body weight 4696 [oz_av] 4696 [oz_av] BREONNA ([facility]) Systolic blood pressure 118 mm[Hg] 118 mm[Hg] [facility] Diastolic blood pressure 77 mm[Hg] 77 mm[Hg] BREONNA ([facility]) Body height 67 [in_i] 67 [in_i] BREONNA ([facility]) Body weight 4696 [oz_av] 4696 [oz_av] BREONNA ([facility]) Body mass index (BMI) [Ratio] 46 kg/m2 46 kg/ m2 BREONNA ([facility]) Diastolic blood pressure 77 mm[Hg] 77 mm[Hg] BREONNA ([facility]) Body height 67 [in_i] 67 [in_i] BREONNA ([facility]) Body mass index (BMI) [Ratio] 46 kg/m2 46 kg/ m2 BREONNA ([facility]) Systolic blood pressure 118 mm[Hg] 118 mm[Hg] A THENA ([facility]) Body weight 4696 [oz_av] 4696 [oz_av] BREONNA ([facility]) Diastolic blood pressure 77 mm[Hg] 77 mm[Hg] BREONNA ([facility]) Body height 67 [in_i] 67 [in_i] BREONNA ([facility]) Body mass index (BMI) [Ratio] 46 kg/m2 46 kg/ m2 BREONNA ([facility]) Systolic blood pressure 118 mm[Hg] 118 mm[Hg] A THEN ([facility]) Body weight 4696 [oz_av] 4696 [oz_av] BREONNA ([facility]) Diastolic blood pressure 77 mm[Hg] 77 mm[Hg] BREONNA ([facility]) Body height 67 [in_i] 67 [in_i] BREONNA ([facility]) Body mass index (BMI) [Ratio] 46 kg/m2 46 kg/ m2 BREONNA ([facility]) Systolic blood pressure 118 mm[Hg] 118 mm[Hg] A THENA ([facility]) Body weight 4696 [oz_av] 4696 [oz_av] BREONNA ([facility]) Body weight 287.8 [lb_av] 287.8 [lb_av] eCW1 ([facility]) Body height 65 [in_i] 65 [in_i] eCW1 ([facility]) Body mass index (BMI) [Ratio] 47.89 kg/m2 47.89 kg/m2 eCW1 ([facility]) Systolic blood pressure 138 mm[Hg] 138 mm[Hg] e CW1 ([facility]) Diastolic blood pressure 88 mm[Hg] 88 mm[Hg] eCW1 ([facility]) Body weight 286 [lb_av] 286 [lb_av] eCW1 ([facility]) Body weight 129.73 kg 129.73 kg eCW1 ([facility]) Body height 65 [in_i] 65 [in_i] eCW1 ([facility]) Body mass index (BMI) [Ratio] 47.59 kg/m2 47.59 kg/m2 eCW1 ([facility]) Systolic blood pressure 119 mm[Hg] 119 mm[Hg] e CW1 ([facility]) Diastolic blood pressure 81 mm[Hg] 81 mm[Hg] eCW1 ([facility]) Diastolic blood pressure 78 mm[Hg] 78 mm[Hg] BREONNA ([facility]) Body weight 4672 [oz_av] 4672 [oz_av] BREONNA ([facility]) Body height 67 [in_i] 67 [in_i] BREONNA ([facility]) Body mass index (BMI) [Ratio] 45.7 kg/m2 45.7 k g/m2 BREONNA ([facility]) Systolic blood pressure 119 mm[Hg] 119 mm[Hg] [facility] Diastolic blood pressure 78 mm[Hg] 78 mm[Hg] BREONNA ([facility]) Body height 67 [in_i] 67 [in_i] BREONNA ([facility]) Body mass index (BMI) [Ratio] 45.7 kg/m2 45.7 k g/m2 BREONNA ([facility]) Systolic blood pressure 119 mm[Hg] 119 mm[Hg] [facility] Body weight 4672 [oz_av] 4672 [oz_av] BREONNA ([facility]) Body height 67 [in_i] 67 [in_i] BREONNA ([facility]) Diastolic blood pressure 78 mm[Hg] 78 mm[Hg] BREONNA ([facility]) Body mass index (BMI) [Ratio] 45.7 kg/m2 45.7 k g/m2 BREONNA ([facility]) Systolic blood pressure 119 mm[Hg] 119 mm[Hg] [facility] Body weight 4672 [oz_av] 4672 [oz_av] BREONNA ([facility]) Diastolic blood pressure 78 mm[Hg] 78 mm[Hg] BREONNA ([facility]) Body height 67 [in_i] 67 [in_i] RBEONNA ([facility]) Body mass index (BMI) [Ratio] 45.7 kg/m2 45.7 k g/m2 BREONNA ([facility]) Systolic blood pressure 119 mm[Hg] 119 mm[Hg] [facility] Body weight 4672 [oz_av] 4672 [oz_av] BREONNA ([facility]) Diastolic blood pressure 78 mm[Hg] 78 mm[Hg] BREONNA ([facility]) Body height 67 [in_i] 67 [in_i] BREONNA ([facility]) Body mass index (BMI) [Ratio] 45.7 kg/m2 45.7 k g/m2 BREONNA ([facility]) Systolic blood pressure 119 mm[Hg] 119 mm[Hg] A THENA ([facility]) Body weight 4672 [oz_av] 4672 [oz_av] BREONNA ([facility]) Diastolic blood pressure 78 mm[Hg] 78 mm[Hg] BREONNA ([facility]) Body height 67 [in_i] 67 [in_i] BREONNA ([facility]) Body mass index (BMI) [Ratio] 45.7 kg/m2 45.7 k g/m2 BREONNA ([facility]) Systolic blood pressure 119 mm[Hg] 119 mm[Hg] A THENA ([facility]) Body weight 4672 [oz_av] 4672 [oz_av] BREONNA ([facility]) Systolic blood pressure 140 mm[Hg] 140 mm[Hg] M EDJUAN A ([facility], ) Diastolic blood pressure 76 mm[Hg] 76 mm[Hg] [facility] Heart rate 85 /min 85 /min [facility] ([facility], ) Oxygen saturation in Arterial blood by Pulse oximetry 94 % 94 % [facility] ([facility], ) Body temperature 97.5 [degF] 97.5 [degF] [facility] ([facility], ) Body height 67 [in_i] 67 [in_i] [facility] 5'7" Body weight 296.25 [lb_av] 296.25 [lb_av] MEDEN T ([facility], ) Body mass index (BMI) [Ratio] 46.4 kg/m2 46.4 k g/m2 [facility] ([facility], ) [place] body weight 135 [lb_av] 135 [lb_av] MEDEN T ([facility], ) Body weight 134.379 kg 134.379 kg [facility] ([facility], ) Body surface area Derived from formula 2.39 m2 2.39 m2 [facility] ([facility], ) Diastolic blood pressure 77 mm[Hg] 77 mm[Hg] BREONNA ([facility]) Body height 67 [in_i] 67 [in_i] BREONNA ([facility]) Body mass index (BMI) [Ratio] 45.98 kg/m2 45.98 kg/m2 BREONNA ([facility]) Systolic blood pressure 112 mm[Hg] 112 mm[Hg] A THENA ([facility]) Body weight 4680 [oz_av] 4680 [oz_av] BREONNA ([facility]) Diastolic blood pressure 77 mm[Hg] 77 mm[Hg] BREONNA ([facility]) Body height 67 [in_i] 67 [in_i] BREONNA ([facility]) Body mass index (BMI) [Ratio] 45.98 kg/m2 45.98 kg/m2 BREONNA ([facility]) Systolic blood pressure 112 mm[Hg] 112 mm[Hg] A THENA ([facility]) Body weight 4680 [oz_av] 4680 [oz_av] BREONNA ([facility]) Diastolic blood pressure 77 mm[Hg] 77 mm[Hg] BREONNA ([facility]) Body height 67 [in_i] 67 [in_i] BREONNA ([facility]) Body mass index (BMI) [Ratio] 45.98 kg/m2 45.98 kg/m2 BREONNA ([facility]) Systolic blood pressure 112 mm[Hg] 112 mm[Hg] A THENA ([facility]) Body weight 4680 [oz_av] 4680 [oz_av] BREONNA ([facility]) Diastolic blood pressure 77 mm[Hg] 77 mm[Hg] BREONNA ([facility]) Body height 67 [in_i] 67 [in_i] BREONNA ([facility]) Body mass index (BMI) [Ratio] 45.98 kg/m2 45.98 kg/m2 BREONNA ([facility]) Systolic blood pressure 112 mm[Hg] 112 mm[Hg] A THENA ([facility]) Body weight 4680 [oz_av] 4680 [oz_av] BREONNA ([facility]) Body height 67 [in_i] 67 [in_i] BREONNA ([facility]) Body mass index (BMI) [Ratio] 45.98 kg/m2 45.98 kg/m2 BREONNA ([facility]) Systolic blood pressure 112 mm[Hg] 112 mm[Hg] [facility] Body weight 4680 [oz_av] 4680 [oz_av] BREONNA ([facility]) Diastolic blood pressure 77 mm[Hg] 77 mm[Hg] BREONNA ([facility]) Diastolic blood pressure 77 mm[Hg] 77 mm[Hg] BREONNA ([facility]) Body height 67 [in_i] 67 [in_i] BREONNA ([facility]) Body mass index (BMI) [Ratio] 45.98 kg/m2 45.98 kg/m2 BREONNA ([facility]) Systolic blood pressure 112 mm[Hg] 112 mm[Hg] [facility] Body weight 4680 [oz_av] 4680 [oz_av] BREONNA ([facility]) Patient Treatment Plan of Care Planned Activity Planned Date Details Description Data Source (s) Fluconazole 150 MG Oral Tablet [Diflucan] 03/07/2021 12:00:00 AM ED T eCW1 ([facility]) Fluconazole 150 MG Oral Tablet [Diflucan] 03/07/2021 12:00:00 AM ED T eCW1 ([facility]) Nystatin 997372 UNT/ML Topical Cream 03/07/2021 12:00:00 AM EDT eCW1 ([facility]) Fluconazole 150 MG Oral Tablet [Diflucan] 03/07/2021 12:00:00 AM ED T eCW1 ([facility]) Nystatin 100739 UNT/ML Topical Cream 11/10/2020 12:00:00 AM EST eCW1 ([facility]) Fluconazole 150 MG Oral Tablet 11/10/2020 12:00:00 AM EST eCW1 ([facility]) Nystatin 898452 UNT/ML Topical Cream 11/10/2020 12:00:00 AM EST eCW1 ([facility]) Fluconazole 150 MG Oral Tablet 11/10/2020 12:00:00 AM EST eCW1 ([facility]) Fluconazole 150 MG Oral Tablet 11/10/2020 12:00:00 AM EST eCW1 ([facility]) Nystatin 051938 UNT/ML Topical Cream 11/10/2020 12:00:00 AM EST eCW1 ([facility]) Amoxicillin 875 MG / Clavulanate 125 MG Oral Tablet BREONNA ([facility]) Amoxicillin 875 MG Oral Tablet BREONNA ([facility]) vitamin d3 50 mcg (1999 ut) tabs BREONNA ([facility]) 24 HR venlafaxine 37.5 MG Extended Release Oral Capsule BREONNA ([facility]) 24 HR venlafaxine 150 MG Extended Release Oral Capsule BREONNA ([facility]) Bacitracin 0.4 UNT/MG / Neomycin 0.0035 MG/MG / Polymyxin B 5 UNT/MG Topical Ointment BREONNA ([facility]) Ranitidine 150 MG Oral Tablet BREONNA ([facility]) Phenazopyridine hydrochloride 200 MG Oral Tablet BREONNA ([facility]) Ondansetron 4 MG Oral Tablet BREONNA ([facility]) Nystatin 659545 UNT/ML Topical Cream RBEONNA ([facility]) Hydrocortisone 10 MG/ML / Neomycin 3.5 M G/ML / Polymyxin B 75786 UNT/ML Otic Solution BREONNA ([facility]) Naproxen 500 MG Oral Tablet BREONNA ([facility]) montelukast 10 MG Oral Tablet BREONNA ([facility]) 24 HR metoprolol succinate 50 MG Extended Release Oral Tablet BREONNA ([facility]) Meclizine Hydrochloride 25 MG Oral Tablet BREONNA ([facility]) Hydroxyzine Hydrochloride 50 MG Oral Tablet BREONNA ([facility]) Hydroxyzine Hydrochloride 25 MG Oral Tablet BREONNA ([facility]) Hydrochlorothiazide 25 MG Oral Tablet BREONNA ([facility]) Cyclobenzaprine hydrochloride 10 MG Oral Tablet BREONNA ([facility]) Citalopram 40 MG Oral Tablet BREONNA ([facility]) cefdinir 300 MG Oral Capsule BREONNA ([facility]) Azithromycin 250 MG Oral Tablet BREONNA ([facility]) [place] 9 mg tablet BREONNA ( [facility]) [place] 6 mg tablet BREONNA ( [facility]) [place] 12 mg tablet BREONNA ([facility]) atorvastatin 10 MG Oral Tablet [facility] ([facility] System) aripiprazole 20 MG Oral Tablet [facility] ([facility]) aripiprazole 15 MG Oral Tablet [facility] ([facility]) Amoxicillin 875 MG / Clavulanate 125 MG Oral Tablet [facility] ([facility]) Amoxicillin 875 MG Oral Tablet [facility] ([facility]) vitamin d3 50 mcg (1999 ut) tabs BRE[facility] ([facility]) 24 HR venlafaxine 37.5 MG Extended Release Oral Capsule [facility] ([facility]) 24 HR venlafaxine 150 MG Extended Release Oral Capsule [facility] ([facility]) Bacitracin 0.4 UNT/MG / Neomycin 0.0035 MG/MG / Polymyxin B 5 UNT/MG Topical Ointment [facility] ([facility]) Ranitidine 150 MG Oral Tablet [facility] ([facility]) Phenazopyridine hydrochloride 200 MG Oral Tablet [facility] ([facility]) Ondansetron 4 MG Oral Tablet [facility] ([facility]) Nystatin [id number] UNT/ML Topical Cream [facility] ([facility]) Hydrocortisone 10 MG/ML / Neomycin 3.5 M G/ML / Polymyxin B [id number] UNT/ML Otic Solution [facility] ([facility]) Naproxen 500 MG Oral Tablet [facility] ([facility]) montelukast 10 MG Oral Tablet [facility] ([facility]) 24 HR metoprolol succinate 50 MG Extended Release Oral Tablet [facility] ([facility]) Meclizine Hydrochloride 25 MG Oral Tablet [facility] ([facility]) Hydroxyzine Hydrochloride 50 MG Oral Tablet [facility] ([facility]) Hydroxyzine Hydrochloride 25 MG Oral Tablet [facility] ([facility]) Hydrochlorothiazide 25 MG Oral Tablet [facility] ([facility]) Cyclobenzaprine hydrochloride 10 MG Oral Tablet [facility] ([facility]) Citalopram 40 MG Oral Tablet [facility] ([facility]) Cephalexin 500 MG Oral Capsule [facility] ([facility]) cefdinir 300 MG Oral Capsule [facility] ([facility]) Azithromycin 250 MG Oral Tablet [facility] ([facility]) Austedo 9 mg tablet BREONNA ( [facility]) [place] 6 mg tablet BREON[facility] ( [facility]) [place] 12 mg tablet [facility] ([facility]) atorvastatin 10 MG Oral Tablet [facility] ([facility]) aripiprazole 20 MG Oral Tablet [facility] ([facility]) aripiprazole 15 MG Oral Tablet [facility] ([facility]) 24 HR venlafaxine 37.5 MG Extended Release Oral Capsule [facility] ([facility]) Bacitracin 0.4 UNT/MG / Neomycin 0.0035 MG/MG / Polymyxin B 5 UNT/MG Topical Ointment [facility] ([facility]) Ranitidine 150 MG Oral Tablet [facility] ([facility]) Ondansetron 4 MG Oral Tablet [facility] ([facility]) Nystatin [id number] UNT/ML Topical Cream [facility] ([facility]) Hydrocortisone 10 MG/ML / Neomycin 3.5 M G/ML / Polymyxin B 24498 UNT/ML Otic Solution [facility] ([facility]) montelukast 10 MG Oral Tablet [facility] ([facility]) Meclizine Hydrochloride 25 MG Oral Tablet [facility] ([facility]) Hydroxyzine Hydrochloride 50 MG Oral Tablet [facility] ([facility]) Hydroxyzine Hydrochloride 25 MG Oral Tablet [facility] ([facility]) Fluconazole 150 MG Oral Tablet [facility] ([facility]) Citalopram 20 MG Oral Tablet [facility] ([facility]) Cephalexin 500 MG Oral Capsule [facility] ([facility]) cefdinir 300 MG Oral Capsule [facility] ([facility]) Azithromycin 250 MG Oral Tablet [facility] ([facility]) [place] 9 mg tablet BRE[facility] ( [facility]) [place] 6 mg tablet BRE[facility] ( [facility]) [place] 12 mg tablet [facility] ([facility]) atorvastatin 10 MG Oral Tablet [facility] ([facility]) aripiprazole 20 MG Oral Tablet [facility] ([facility]) aripiprazole 15 MG Oral Tablet [facility] ([facility]) Amoxicillin 875 MG / Clavulanate 125 MG Oral Tablet [facility] ([facility]) Amoxicillin 875 MG Oral Tablet [facility] ([facility]) Amoxicillin 875 MG Oral Tablet [facility] ([facility]) Ranitidine 150 MG Oral Tablet [facility] ([facility]) Citalopram 20 MG Oral Tablet [facility] ([facility]) Cephalexin 500 MG Oral Capsule [facility] ([facility]) aripiprazole 20 MG Oral Tablet [facility] ([facility]) aripiprazole 15 MG Oral Tablet [facility] ([facility]) Amoxicillin 875 MG / Clavulanate 125 MG Oral Tablet [facility] ([facility]) Bacitracin 0.4 UNT/MG / Neomycin 0.0035 MG/MG / Polymyxin B 5 UNT/MG Topical Ointment [facility] ([facility]) Ranitidine 150 MG Oral Tablet [facility] ([facility]) Ondansetron 4 MG Oral Tablet [facility] ([facility]) Nystatin [id number] UNT/ML Topical Cream [facility] ([facility]) Hydrocortisone 10 MG/ML / Neomycin 3.5 M G/ML / Polymyxin B 49162 UNT/ML Otic Solution [facility] ([facility]) montelukast 10 MG Oral Tablet [facility] ([facility]) Meclizine Hydrochloride 25 MG Oral Tablet [facility] ([facility]) Hydroxyzine Hydrochloride 50 MG Oral Tablet [facility] ([facility]) Hydroxyzine Hydrochloride 25 MG Oral Tablet [facility] ([facility]) Fluconazole 150 MG Oral Tablet [facility] ([facility]) Citalopram 20 MG Oral Tablet [facility] ([facility]) Cephalexin 500 MG Oral Capsule [facility] ([facility]) cefdinir 300 MG Oral Capsule [facility] ([facility]) Azithromycin 250 MG Oral Tablet [facility] ([facility]) [place] 9 mg tablet BRE[facility] ( [facility]) [place] 6 mg tablet BRE[facility] ( [facility]) [place] 12 mg tablet [facility] ([facility]) atorvastatin 10 MG Oral Tablet [facility] ([facility]) aripiprazole 20 MG Oral Tablet [facility] ([facility]) aripiprazole 15 MG Oral Tablet [facility] ([facility]) Amoxicillin 875 MG / Clavulanate 125 MG Oral Tablet [facility] ([facility]) 24 HR venlafaxine 75 MG Extended Release Oral Capsule [facility] ([facility]) 24 HR venlafaxine 37.5 MG Extended Release Oral Capsule [facility] ([facility]) Ranitidine 150 MG Oral Tablet [facility] ([facility]) Ondansetron 4 MG Oral Tablet [facility] ([facility]) montelukast 10 MG Oral Tablet [facility] ([facility]) Hydroxyzine Hydrochloride 50 MG Oral Tablet [facility] ([facility]) Hydroxyzine Hydrochloride 25 MG Oral Tablet [facility] ([facility]) Citalopram 20 MG Oral Tablet [facility] ([facility]) cetirizine hydrochloride 10 MG Oral Tablet [facility] ([facility]) Cephalexin 500 MG Oral Capsule [facility] ([facility]) Azithromycin 250 MG Oral Tablet [facility] ([facility]) [place] 9 mg tablet BRE[facility] ( [facility]) [place] 6 mg tablet BRE[facility] ( [facility]) [place] 12 mg tablet [facility] ([facility]) aripiprazole 20 MG Oral Tablet [facility] ([facility]) aripiprazole 15 MG Oral Tablet [facility] ([facility]) Amoxicillin 875 MG / Clavulanate 125 MG Oral Tablet [facility] ([facility]) 24 HR venlafaxine 37.5 MG Extended Release Oral Capsule [facility] ([facility])
[2021-07-07 13:28] LABS: BASO % 0.4 % (0.0-1.0); EOS # 0.2 10^3/uL (0.0-0.5); HEMATOCRIT 43.9 % (36.0-47.0); HEMOGLOBIN 14.7 g/dl (12.0-15.5); LYMPH % 33.1 % (24.0-44.0); MEAN CORPUSCULAR HGB CONC 33.5 g/dl (32.0-36.5); MEAN CORPUSCULAR VOLUME 86.6 fl (80.0-96.0); MONO # 0.6 10^3/uL (0.0-0.8); MONO % 6.5 % (2.0-8.0); NEUTROPHILS # 5.2 10^3/uL (1.5-8.5); NEUTROPHILS % 57.7 % (36.0-66.0); PLATELET COUNT, AUTOMATED 367 10^3/uL (150-450); RED BLOOD COUNT 5.07 10^6/uL (4.00-5.40); WHITE BLOOD COUNT 9.1 10^3/uL (4.0-10.0)
[2021-07-07 14:02] LABS: ALBUMIN 3.6 GM/DL (3.2-5.2); ALT/SGPT 48 U/L (12-78); BILIRUBIN,DIRECT 0.2 MG/DL (0.0-0.2); BILIRUBIN,TOTAL 0.8 MG/DL (0.2-1.0); BLOOD UREA NITROGEN 11 MG/DL (7-18); CARBON DIOXIDE LEVEL 28 MEQ/L (21-32); CHLORIDE LEVEL 109 MEQ/L (98-107); CK-MB VALUE MASS < 1.0 NG/ML (<3.6); CPK CREATINE PHOSPHOKINASE 101 U/L (26-192); CREATININE FOR GFR 0.66 MG/DL (0.55-1.30); GLOMERULAR FILTRATION RATE > 60.0 (>58); GLUCOSE, FASTING 134 MG/DL (70-100); LIPASE 198 U/L (73-393); MB/CK RELATIVE INDEX 0.99 (< OR =4); SODIUM LEVEL 142 MEQ/L (136-145); TOTAL PROTEIN 7.3 GM/DL (6.4-8.2); TROPONIN I < 0.02 NG/ML (< 0.10)
[2021-07-07] MEDS ORDERED: NS 1,000 ML IV ONE (17:20)
[2021-07-07] MEDS ORDERED: diazePAM 10MG/2ML SYRINGE (J3360 PER 5MG) IV ONE (17:20)
--- OUTSIDE RECORDS SUMMARY | 2021-07-07 17:37 | CCD ---
Author Author [facility] Organization [facility] Address Unknown Phone Unavailable Care Team Providers Care Data Acquisition Technician Name Role Phone Brizuela, E Lore PLANTING MATERIAL CARRIER Unavailable Unavailable Brizuela, E Lore PLANTING MATERIAL CARRIER Unavailable Unavailable Brizuela, E Lore PLANTING MATERIAL CARRIER Unavailable Unavailable Brizuela, E Lore PLANTING MATERIAL CARRIER Unavailable Unavailable Brizuela, E Lore PLANTING MATERIAL CARRIER Unavailable Unavailable Brizuela, E Lore PLANTING MATERIAL CARRIER Unavailable Unavailable Brizuela, E Lore PLANTING MATERIAL CARRIER Unavailable Unavailable Brizuela, E Lore PLANTING MATERIAL CARRIER Unavailable Unavailable Brizuela, E Lore PLANTING MATERIAL CARRIER Unavailable Unavailable Brizuela, E Lore PLANTING MATERIAL CARRIER Unavailable Unavailable Brizuela, E Lore PLANTING MATERIAL CARRIER Unavailable Unavailable Brizuela, E Lore PLANTING MATERIAL CARRIER Unavailable Unavailable Brizuela, E Lore PLANTING MATERIAL CARRIER Unavailable Unavailable Brizuela, E Lore PLANTING MATERIAL CARRIER Unavailable Unavailable Brizuela, E Lore PLANTING MATERIAL CARRIER Unavailable Unavailable Brizuela, E Lore PLANTING MATERIAL CARRIER Unavailable Unavailable Brizuela, E Lore PLANTING MATERIAL CARRIER Unavailable Unavailable Brizuela, E Lore PLANTING MATERIAL CARRIER Unavailable Unavailable Brizuela, E Lore PLANTING MATERIAL CARRIER Unavailable Unavailable Brizuela, E Lore PLANTING MATERIAL CARRIER Unavailable Unavailable Brizuela, E Lore PLANTING MATERIAL CARRIER Unavailable Unavailable Brizuela, E Lore PLANTING MATERIAL CARRIER Unavailable Unavailable Brizuela, E Lore PLANTING MATERIAL CARRIER Unavailable Unavailable Mollison, Wicho Oneill MD Unavailable [...] Oneill MD Unavailable Unavailable MARCELA, B ARI PLANTING MATERIAL CARRIER Unavailable Unavailable MARCELA, B ARI PLANTING MATERIAL CARRIER Unavailable Unavailable MARCELA, B ARI PLANTING MATERIAL CARRIER Unavailable Unavailable MARCELA, B ARI PLANTING MATERIAL CARRIER Unavailable Unavailable MARCELA, B ARI PLANTING MATERIAL CARRIER Unavailable Unavailable MARCELA, B ARI PLANTING MATERIAL CARRIER Unavailable Unavailable MARCELA, B ARI PLANTING MATERIAL CARRIER Unavailable Unavailable MARCELA, B ARI PLANTING MATERIAL CARRIER Unavailable Unavailable MARCELA, B ARI PLANTING MATERIAL CARRIER Unavailable Unavailable MARCELA, B ARI PLANTING MATERIAL CARRIER Unavailable Unavailable MARCELA, B ARI PLANTING MATERIAL CARRIER Unavailable Unavailable MARCELA, B ARI PLANTING MATERIAL CARRIER Unavailable Unavailable MARCELA, B ARI PLANTING MATERIAL CARRIER Unavailable Unavailable MARCELA, B ARI PLANTING MATERIAL CARRIER Unavailable Unavailable MARCELA, B ARI PLANTING MATERIAL CARRIER Unavailable Unavailable MARCELA, B ARI PLANTING MATERIAL CARRIER Unavailable Unavailable MARCELA, B ARI PLANTING MATERIAL CARRIER Unavailable Unavailable MARCELA, B ARI PLANTING MATERIAL CARRIER Unavailable Unavailable MARCELA, B ARI PLANTING MATERIAL CARRIER Unavailable Unavailable MARCELA, B ARI PLANTING MATERIAL CARRIER Unavailable Unavailable MARCELA, B ARI PLANTING MATERIAL CARRIER Unavailable Unavailable MARCELA, B ARI PLANTING MATERIAL CARRIER Unavailable Unavailable MARCELA, B ARI PLANTING MATERIAL CARRIER Unavailable Unavailable MARCELA, B ARI PLANTING MATERIAL CARRIER Unavailable Unavailable MARCELA, B ARI PLANTING MATERIAL CARRIER Unavailable Unavailable MARCELA, B ARI PLANTING MATERIAL CARRIER Unavailable Unavailable MARCELA, B ARI PLANTING MATERIAL CARRIER Unavailable Unavailable MARCELA, B ARI PLANTING MATERIAL CARRIER Unavailable Unavailable MARCELA, B ARI PLANTING MATERIAL CARRIER Unavailable Unavailable MARCELA, B ARI PLANTING MATERIAL CARRIER Unavailable Unavailable MARCELA, B ARI PLANTING MATERIAL CARRIER Unavailable Unavailable MARCELA, B ARI PLANTING MATERIAL CARRIER Unavailable Unavailable MARCELA, B ARI PLANTING MATERIAL CARRIER Unavailable Unavailable MARCELA, B ARI PLANTING MATERIAL CARRIER Unavailable Unavailable MARCELA, B ARI PLANTING MATERIAL CARRIER Unavailable Unavailable MARCELA, B ARI PLANTING MATERIAL CARRIER Unavailable Unavailable MARCELA, B ARI PLANTING MATERIAL CARRIER Unavailable Unavailable MARCELA, B ARI PLANTING MATERIAL CARRIER Unavailable Unavailable MARCELA, B ARI PLANTING MATERIAL CARRIER Unavailable Unavailable MARCELA, B ARI PLANTING MATERIAL CARRIER Unavailable Unavailable MARCELA, B ARI PLANTING MATERIAL CARRIER Unavailable Unavailable MARCELA, B ARI PLANTING MATERIAL CARRIER Unavailable Unavailable MARCELA, B ARI PLANTING MATERIAL CARRIER Unavailable Unavailable MARCELA, B ARI PLANTING MATERIAL CARRIER Unavailable Unavailable MARCELA, B ARI PLANTING MATERIAL CARRIER Unavailable Unavailable MARCELA, B ARI PLANTING MATERIAL CARRIER Unavailable Unavailable MARCELA, B ARI PLANTING MATERIAL CARRIER Unavailable Unavailable MARCELA, B ARI PLANTING MATERIAL CARRIER Unavailable Unavailable MARCELA, B ARI PLANTING MATERIAL CARRIER Unavailable Unavailable MARCELA, B ARI PLANTING MATERIAL CARRIER Unavailable Unavailable MARCELA, B ARI PLANTING MATERIAL CARRIER Unavailable Unavailable MARCELA, B ARI PLANTING MATERIAL CARRIER Unavailable Unavailable MARCELA, B ARI PLANTING MATERIAL CARRIER Unavailable Unavailable MARCELA, B ARI PLANTING MATERIAL CARRIER Unavailable Unavailable MARCELA, B ARI PLANTING MATERIAL CARRIER Unavailable Unavailable MARCELA, B ARI PLANTING MATERIAL CARRIER Unavailable Unavailable MARCELA, B ARI PLANTING MATERIAL CARRIER Unavailable Unavailable MARCELA, B ARI PLANTING MATERIAL CARRIER Unavailable Unavailable MARCELA, B ARI PLANTING MATERIAL CARRIER Unavailable Unavailable MARCELA, B ARI PLANTING MATERIAL CARRIER Unavailable Unavailable MARCELA, B ARI PLANTING MATERIAL CARRIER Unavailable Unavailable MARCELA, B ARI PLANTING MATERIAL CARRIER Unavailable Unavailable Nash, A Bridgette TRUMPET PLAYER Unavailable Unavailable [place], A Bridgette TRUMPET PLAYER Unavailable Unavailable [place], A Bridgette TRUMPET PLAYER Unavailable Unavailable [place], A Bridgette TRUMPET PLAYER Unavailable Unavailable [place], A Bridgette TRUMPET PLAYER Unavailable Unavailable [place], A Bridgette TRUMPET PLAYER Unavailable Unavailable [place], A Bridgette TRUMPET PLAYER Unavailable Unavailable [place], A Bridgette TRUMPET PLAYER Unavailable Unavailable [place], A Bridgette TRUMPET PLAYER Unavailable Unavailable [place], A Bridgette TRUMPET PLAYER Unavailable Unavailable [place], A Bridgette TRUMPET PLAYER Unavailable Unavailable [place], A Bridgette TRUMPET PLAYER Unavailable Unavailable [place], A Bridgette TRUMPET PLAYER Unavailable Unavailable [place], A Bridgette TRUMPET PLAYER Unavailable Unavailable [place], A Bridgette TRUMPET PLAYER Unavailable [facility], A Bridgette TRUMPET PLAYER Unavailable Unavailable [place], A Bridgette TRUMPET PLAYER Unavailable Unavailable [place], A Bridgette TRUMPET PLAYER Unavailable Unavailable [place], A Bridgette TRUMPET PLAYER Unavailable Unavailable [place], A Bridgette TRUMPET PLAYER Unavailable [facility], A Bridgette TRUMPET PLAYER Unavailable [facility], A Bridgette TRUMPET PLAYER Unavailable [facility], A Bridgette TRUMPET PLAYER Unavailable [facility], A Bridgette TRUMPET PLAYER Unavailable [facility], A Bridgette TRUMPET PLAYER Unavailable [facility], A Bridgette TRUMPET PLAYER Unavailable [facility], A Bridgette TRUMPET PLAYER Unavailable [facility], A Bridgette TRUMPET PLAYER Unavailable [facility], A Bridgette TRUMPET PLAYER Unavailable [facility], A Bridgette TRUMPET PLAYER Unavailable Unavailable [place], A Bridgette TRUMPET PLAYER Unavailable Unavailable MAJAK, R RONAN DPM Unavailable [...] Unavailable Unavailable Cliff Weller MD Unavailable Unavailable lCiff Weller MD Unavailable Unavailable Cliff Weller MD [...] Unavailable Unavailable Cliff Weller MD Unavailable Unavailable Weller, Cliff Oneill MD [...] Weller, Cliff Oneill MD Unavailable Unavailable Weller, Clfif Oneill MD Unavailable Unavailable Weller, Cliff Oneill MD Unavailable Unavailable Weller, Cliff Oneill MD Unavailable Unavailable Weller, Cliff Oneill MD Unavailable Unavailable Weller, Cliff Oneill MD Unavailable Unavailable Weller, Cliff Oneill MD Unavailable Unavailable Noragong, Sarah Unavailable [phone] Noragong, Sarah Unavailable [phone] Noragong, Sarah Unavailable [phone] Re-disclosure Warning The records that you are [...] is protected by Article 27-F of the [facility] Public Health law. If you continue you may have access to information: Regarding HIV / AIDS; Provided by facilities licensed or operated by the [facility] Office of Mental Health; or Provided by the [facility] Office for People With Developmental Disabilities. If such information is present, then the following [facility] mandated warning applies: This information has been [...] law may result in a fine or intermediate sentence or both. A general authorization for the release of medical or other information is NOT sufficient authorization for further disc losure. Allergies and Adverse Reactions Type Description Substance Reaction Status Data Source(s ) Allergy to substance Allergy to substance Sulfa (Sulfonamide Antibiot ics) [place] ([facility]) Allergy to substance Allergy to substance Sulfa (Sulfonamide Antibiot ics) [facility]) Allergy to substance Allergy to substance Sulfa (Sulfonamide Antibiot ics) [place] ([facility]) Family History Family Member Name Family Member Gender Family Member Status Date o f Status Description Data Source(s) Unknown Unknown Problem [facility] ([facility], [facility]) mother Unknown Female Problem [facility] ([facility] Encounters Encounter Providers Location Date Indications Data Source(s ) OFFICE OUTPATIENT NEW 60 MINUTES Attender: ARI MEDRANO PLANTING MATERIAL CARRIER Ph ysical Therapy 07/04/2021 01:45:00 PM EDT MEDENT ([facility]) ASHLEY Wilcox: [address] [place] [address], Ph. Attender: Sarah Negron [facility] Medical 06/29/2021 12:00:00 AM EDT [facility] ASHLEY Lacey-BC: [address] [place] [address], Ph. Attender: Bridgette RAMIREZ [facility] Medical 06/14/2021 12:00:00 AM EDT [place] ([facility]) [facility] [address], [place] [address], Ph. Attender: Bridgette Cao [facility] Medical 06/14/2021 12:00:00 AM EDT [place] ([facility]) [place] [address] [facility] [address] 05/10/2021 12:00:00 AM EDT eCW1 ([facility]) [place] [address] [facility] [address] 05/09/2021 12:00:00 AM EDT eCW1 ([facility]) [facility] [address], [place] [address], Ph. Attender: Bridgette Cao [facility] Medical 04/20/2021 12:00:00 AM EDT [place] ([facility]) [facility] [address], [place] [address], Ph. Attender: Bridgette Cao [facility] Medical 04/20/2021 12:00:00 AM EDT [place] ([facility]) [facility] [address], [place] [address], Ph. Attender: Bridgette Cao [facility] Medical 04/20/2021 12:00:00 AM EDT [place] ([facility]) [facility]: [address], [place] [address], Ph. Attender: Bridgette Cao [facility] Medical 04/20/2021 12:00:00 AM EDT [place] ([facility]) Bridgette Cao [facility]: [address], [facility] [place] [address], Ph. Attender: Bridgette Cao [facility] Medical 03/31/2021 12:00:00 AM EDT [place] ([facility]) Bridgette Cao [facility]: [address], [place] [address], Ph. Attender: Bridgette Cao [facility] Medical 03/31/2021 12:00:00 AM EDT [place] ([facility]) Bridgette Cao [facility]: [address], [place] [address], Ph. Attender: Bridgette Cao [facility] Medical 03/31/2021 12:00:00 AM EDT [place] ([facility]) Bridgette Cao [facility]: [address], [place] [address], Ph. Attender: Bridgette Cao [facility] Medical 03/31/2021 12:00:00 AM EDT [place] ([facility]) Bridgette Cao [facility]: [address], [place] [address], Ph. Attender: Bridgette Cao [facility] Medical 03/31/2021 12:00:00 AM EDT [place] ([facility]) Outpatient [address] [facility] [address] 03/07/2021 12:00:00 AM EDT eCW1 ([facility]) Unknown [address] [facility] [address] 02/22/2021 12:00:00 AM EDT eCW1 ([facility]) Unknown [address] [facility], [place] [address] 12/23/2020 12:00:00 AM EDT eCW1 ([facility]) Outpatient [address] [facility] [place] [address] 11/10/2020 12:00:00 AM EST eCW1 ([facility]) Outpatient Attender: RONAN YATES [facility] 10/18 01:45:00 PM EST [facility] ([facility] NINA Laureano-BC: [address], [place] [address], Ph. Attender: Lore Brizuela NP [facility] Medical 10/20/2020 12:00:00 AM EST [place] ([facility]) ESVIN LaureanoBC: [address], [place] [address], Ph. Attender: Lore Brizuela NP [facility] Medical 10/20/2020 12:00:00 AM EST [place] ([facility]) ESVIN LaureanoBC: [address], [place] [address], Ph. Attender: Lore Brizuela NP [facility] Medical 10/20/2020 12:00:00 AM EST [place] ([facility]) ESVIN LaureanoBC: [address], [place] [address], Ph. Attender: Lore Brizuela NP [facility] Medical 10/20/2020 12:00:00 AM EST [place] ([facility]) ESVIN LaureanoBC: [address], [place] [address], Ph. Attender: Lore Brizuela NP [facility] Medical 10/20/2020 12:00:00 AM EST [place] ([facility]) ESVIN LaureanoBC: [address], [place] [address], Ph. Attender: Lore Brizuela NP [facility] Medical 10/20/2020 12:00:00 AM EST [place] ([facility]) Outpatient Attender: Nino Weller MD 07/30/2020 08:16:01 AM EST [facility] ESVIN LaureanoBC: [address], [place] [address], Ph. Attender: Lore Brizuela NP [facility] Medical 07/30/2020 12:00:00 AM EST [place] ([facility]) ESVIN aLureanoBC: [address], [place] [address], Ph. Attender: Lore Brizuela NP [facility] Medical 07/30/2020 12:00:00 AM EST [place] ([facility]) ESVIN LaureanoBC: [address], [place] [address], Ph. Attender: Lore Brizuela NP [facility] Medical 07/30/2020 12:00:00 AM EST [place] ([facility]) ESVIN LaureanoBC: [address], [place] [address], Ph. Attender: Lore Brizuela NP [facility] Medical 07/30/2020 12:00:00 AM EST [place] ([facility]) ESVIN LaureanoBC: [address], [place] [address], Ph. Attender: Lore Brizuela NP [facility] Medical 07/30/2020 12:00:00 AM EST [place] ([facility]) NINA Laureano-BC: [address], [place] [address], Ph. Attender: Lore Brizuela NP [facility] Medical 07/30/2020 12:00:00 AM EST [place] ([facility]) ESVIN LaureanoBC: [address], [place] [address], Ph. Attender: Lore Brizuela NP [facility] Medical 07/30/2020 12:00:00 AM EST [place] ([facility]) Outpatient Attender: Nino Solorzano/Francisco Javier/Abraham/Re indl 07/22/2020 12:30:00 PM EST [facility] ([facility], ) Outpatient Attender: RONAN YATES [facility] 06/19 11:00:00 AM EDT [facility] ([facility] Outpatient Attender: Nino Weller MD 06/29/2020 11:43:01 AM EDT [facility] Outpatient Attender: Nino Weller MD 06/25/2020 01:10:01 PM EDT [facility] Outpatient Attender: Nino Weller MD 06/16/2020 09:25:00 PM EDT [facility] Outpatient Attender: Nino Weller MD 06/09/2020 04:51:01 PM EDT [facility] Outpatient Attender: Nino Weller MD 06/09/2020 04:51:00 PM EDT [facility] Outpatient Attender: Nino Weller MD 06/09/2020 09:30:01 AM EDT [facility] Outpatient Attender: Nino Weller MD 06/01/2020 09:54:04 AM EDT [facility] Outpatient Attender: Nino Weller MD 06/01/2020 09:52:59 AM EDT [facility] Outpatient Attender: Nino Weller MD 06/01/2020 09:44:01 AM EDT [facility] Outpatient Attender: Nino Weller MD FP 06/01/2020 07:45:01 AM EDT [facility] Outpatient Attender: Nino Weller MD 05/28/2020 03:53:00 PM EDT [facility] Outpatient Attender: Nino Weller MD FP 05/21/2020 01:20:00 PM EDT [facility] Outpatient Attender: Nino Weller MD 05/20/2020 09:43:02 AM EDT [facility] Outpatient Attender: Nino Weller MD FP 05/19/2020 08:32:02 AM EDT [facility] Outpatient Attender: Nino Weller MD FP 05/19/2020 08:32:01 AM EDT [facility] Outpatient Attender: Nino Weller MD 05/10/2020 10:46:01 AM EDT [facility] Immunizations Vaccine Date Status Description Data Source(s) New in 2011. IIV4 08/11/2020 01:02:00 PM EST completed MEDENT ([facility], ) Medications Medication Brand Name Start Date Product Form Dose Route Admi nistrative Instructions Pharmacy Instructions Status Indications Reaction Description Data Source(s) Trulicity Trulicity 07/04/2021 12:00:00 AM EDT act akosua MEDENT ([facility]) 24 HR Metformin hydrochloride 500 MG Extended Release Oral Tablet Metformin HCL ER 07/04/2021 12:00:00 AM EDT ORAL active MEDENT ([facility]) meloxicam 15 MG Oral Tablet Meloxicam 07/01/2021 12:00:00 AM EDT ORAL active MEDENT ([facility]) 150 mg 06/25/2021 12:00:00 AM EDT tablet [...] A DAY FOR 7 DAYS SOLD: 04/05/2021 [facility] 150 mg 03/31/2021 12:00:00 AM EDT [...] propionate 0.05 MG/ACTUAT Metered Dose Chandler al Ackley 50 mcg/actuation FLUTICASONE PROPIONATE 03/10/2021 12:00:00 AM [...] TABLET BY MOUTH AT 8:00AM SOLD: 07/04/2021 [facility] atorvastatin 40 MG Oral Tablet ATORVASTATIN CALCIUM [...] MAXIMUM DAILY DOSE = 3TABLETS SOLD: 03/10/2021 [facility] Fluconazole 150 MG Oral Tablet [Diflucan] Diflucan 150 MG Di flucan 150 MG 03/07/2021 12:00:00 AM EDT 1.0 {tablet} active Diflucan 150 MG eCW1 ([facility]) Nystatin 536686 UNT/ML Topical Cream Nystatin 474108 U NIT/GM Nystatin 386583 UNIT/GM 03/07/2021 12:00:00 AM EDT 1.0 {application} active Nystatin 786835 UNIT/GM eCW1 ([facility]) 150 mg 03/07/2021 12:00:00 AM EDT tablet 3 TAKE 1 TABLET BY MOUTH ONCE A WEEK X 3 WEEKS TAKE 1 TABLET BY MOUTH ONCE A WEEK X 3 WEEKS SOLD: 03/07/2021 [facility] Fluconazole 150 MG Oral Tablet [Diflucan] Diflucan 150 MG Di flucan 150 MG 03/07/2021 12:00:00 AM EDT 1.0 {tablet} active Diflucan 150 MG eCW1 ([facility]) 100,000 unit/gram 03/07/2021 12:00:00 AM EDT cream [...] {tablet} active Diflucan 150 MG eCW1 ([facility]) 100 unit/mL 02/23/2021 12:00:00 AM EDT solution [...] DAILY DOSE = 50 UNITS SOLD: 02/28/2021 [facility] 10 mg 02/16/2021 12:00:00 AM EDT [...] 3 TABLETS SOLD: 11/19/2020 [facility] Nystatin 398354 UNT/ML Topical Cream Nystatin 892961 U NIT/GM Nystatin 259115 UNIT/GM 11/10/2020 12:00:00 AM EST 1.0 {application} active Nystatin 983659 UNIT/GM eCW1 ([facility]) Fluconazole 150 MG Oral Tablet Fluconazole 150 MG 11/10/2020 12:00: 00 AM EST 1.0 {tablet} active Fluconazole 150 MG eCW1 ([facility]) 150 mg 11/10/2020 12:00:00 AM EST tablet 3 TAKE 1 TABLET BY MOUTH ON DAYS 1, 3 AND 7 TAKE 1 TABLET BY MOUTH ON DAYS 1, 3 AND 7 SOLD: 11/10/2020 [facility] Nystatin 874521 UNT/ML Topical Cream Nystatin 571693 U NIT/GM Nystatin 634788 UNIT/GM 11/10/2020 12:00:00 AM EST 1.0 {application} active Nystatin 401905 UNIT/GM eCW1 ([facility]) Nystatin 561098 UNT/ML Topical Cream Nystatin 463645 U NIT/GM Nystatin 129845 UNIT/GM 11/10/2020 12:00:00 AM EST 1.0 {application} active Nystatin 416298 UNIT/GM eCW1 ([facility]) 100,000 unit/gram 11/10/2020 12:00:00 AM EST cream 30 APPLY TO AFFECTED AREA(S) TWO TIMES A DAY APPLY TO AFFECTED AREA(S) TWO TIMES A DAY SOLD: 11/10/2020 [facility] 100,000 unit/gram 11/10/2020 12:00:00 AM EST cream 30 APPLY TO AFFECTED AREA(S) TWO TIMES A DAY APPLY TO AFFECTED AREA(S) TWO TIMES A DAY SOLD: 01/08/2021 [facility] Fluconazole 150 MG Oral Tablet Fluconazole 150 MG 11/10/2020 12:00: 00 AM EST 1.0 {tablet} active Fluconazole 150 MG eCW1 ([facility]) Fluconazole 150 MG Oral Tablet Fluconazole 150 MG 11/10/2020 12:00: 00 AM EST 1.0 {tablet} active Fluconazole 150 MG eCW1 ([facility]) 100,000 unit/gram 11/10/2020 12:00:00 AM EST cream 30 APPLY TO AFFECTED AREA(S) TWO TIMES A DAY APPLY TO AFFECTED AREA(S) TWO TIMES A DAY SOLD: 12/06/2020 [facility] Nystatin 399303 UNT/ML Topical Cream Nystatin 336714 U NIT/GM Nystatin 354350 UNIT/GM 11/10/2020 12:00:00 AM EST 1.0 {application} active Nystatin 637290 UNIT/GM eCW1 ([facility]) Fluconazole 150 MG Oral Tablet Fluconazole 150 MG 11/10/2020 12:00: 00 AM EST 1.0 {tablet} active Fluconazole 150 MG eCW1 ([facility]) Fluconazole 150 MG Oral Tablet Fluconazole 150 MG 11/10/2020 12:00: 00 AM EST 1.0 {tablet} active Fluconazole 150 MG eCW1 ([facility]) Fluconazole 150 MG Oral Tablet Fluconazole 150 MG 11/10/2020 12:00: 00 AM EST 1.0 {tablet} active Fluconazole 150 MG eCW1 ([facility]) 10 mg 11/08/2020 12:00:00 AM EST tablet [...] IN EACH NOSTRIL ONCE DAILY SOLD: 02/14/2021 [facility] Fluticasone propionate 0.05 MG/ACTUAT Metered Dose Chandler al Ackley 50 mcg/actuation FLUTICASONE PROPIONATE 10/20/2020 12:00:00 AM [...] 07/22/2020 12:00:00 AM EST ORAL active MEDENT ([facility], ) Nystatin 276370 UNT/ML Topical Cream nys tatin 100,000 unit/gram topical cream APPLY 1 APPLICATION EXTERNALLY TO AFFECTED AREA S TWICE A DAY FOR 14 DAYS nystatin 100,000 unit/gram topical cream APPLY 1 APPLICATION EXTERNALLY TO AFFECTED AREA S TWICE A DAY FOR 14 DAYS completed nystatin 319101 UNT/ML Topical Cream [facility] ([facility]) Austedo 9 mg tablet 469004 completed deutetrabenazine 9 MG Oral Tablet [Austedo] [facility] ([facility]) vitamin d3 50 mcg (1999 ut) tabs completed vitamin d3 50 mcg (1999 ut) tabs [place] ([facility]) Hydrocortisone 10 MG/ML / Neomycin 3.5 M G/ML / Polymyxin B 60473 UNT/ML Otic Solution puigaphm-mniyggilf-uxcnzqawi 3.5 mg/mL-10,000 unit/mL-1 % ear solution uetotwez-fyofskqqr-eswrtgalv 3.5 mg/mL-10,000 unit/mL-1 % ear solution completed hydrocortisone 10 MG/ML / neomycin 3.5 MG/ML / polymyxin B 27120 UNT/ML Otic Solution [facility] ([facility]) aripiprazole 20 MG Oral Tablet aripipraz ole 20 mg tablet TAKE 1/2 TABLET BY MOUTH @8AM and TAKE 1/2 TABLET BY MOUTH @5PM aripiprazole 20 mg tablet TAKE 1/2 TABLET BY MOUTH @8AM and TAKE 1/2 TABLET BY MOUTH @5PM completed aripiprazole 20 MG Oral Tablet [place] ([facility]) Ondansetron 4 MG Oral Tablet ondansetron HCl 4 mg tabl et ondansetron HCl 4 mg tablet completed ondansetron 4 M G Oral Tablet BREON[facility] ([facility]) Meclizine Hydrochloride 25 MG Oral Tablet meclizine 25 mg tablet meclizine 25 mg tablet completed meclizine hydr ochloride 25 MG Oral Tablet BREON[facility] ([facility]) Amoxicillin 875 MG Oral Tablet amoxicillin 875 mg tabl et amoxicillin 875 mg tablet completed amoxicillin 875 MG Oral Tablet BREONNA ([facility]) [place] 12 mg tablet [id number] completed deutetrabenazine 12 MG Oral Tablet [Austedo] BREONNA ([facility]) Citalopram 40 MG Oral Tablet citalopram 40 mg tablet TAKE ONE TABLET BY MOUTH @8AM citalopram 40 mg tablet TAKE ONE TABLET BY MOUTH @8AM completed citalopram 40 MG Oral Tablet [facility] ([facility]) [place] 9 mg tablet [id number] completed deutetrabenazine 9 MG Oral Tablet [Austedo] BREONNA ([facility]) [place] 9 mg tablet [id number] completed deutetrabenazine 9 MG Oral Tablet [Austedo] BREONNA ([facility]) Hydroxyzine Hydrochloride 50 MG Oral Tablet hydroxyzin e HCl 50 mg tablet hydroxyzine HCl 50 mg tablet completed hydroxyzine hydrochloride 50 MG Oral Tablet [facility] ([facility]) Cephalexin 500 MG Oral Capsule cephalexin 500 mg capsu le cephalexin 500 mg capsule completed cephalexin 500 MG Oral Capsule BRE[facility] ([facility]) Bacitracin 0.4 UNT/MG / Neomycin 0.0035 MG/MG / Polymyxin B 5 UNT/MG Topical Ointment Triple Antibiotic 3.5 mg-400 unit-5,000 unit/gram topical ointment Triple Antibiotic 3.5 mg-400 unit-5,000 unit/gram topical ointment completed bacitracin 0.4 UNT/M G / neomycin 0.0035 MG/MG / polymyxin B 5 UNT/MG Topical Ointment BREONNA ([facility]) aripiprazole 15 MG Oral Tablet aripipraz ole 15 mg tablet TAKE ONE TABLET BY MOUTH @8PM aripiprazole 15 mg tablet TAKE ONE TABLET BY MOUTH @8PM completed aripiprazole 15 MG Oral Tablet [place] THENA ([facility]) Amoxicillin 875 MG / Clavulanate 125 MG Oral Tablet amoxicillin 875 mg-potassium clavulanate 125 mg tablet amoxicillin 875 mg-potassium clavulanate 125 mg tablet completed amoxici llin 875 MG / clavulanate 125 MG Oral Tablet BREONNA ([facility]) Nystatin 197172 UNT/ML Topical Cream nys tatin 100,000 unit/gram topical cream APPLY 1 APPLICATION EXTERNALLY TO AFFECTED AREA S TWICE A DAY FOR 14 DAYS nystatin 100,000 unit/gram topical cream APPLY 1 APPLICATION EXTERNALLY TO AFFECTED AREA S TWICE A DAY FOR 14 DAYS completed nystatin [id number] UNT/ML Topical Cream BREONNA ([facility]) [place] 12 mg tablet [id number] completed deutetrabenazine 12 MG Oral Tablet [Austedo] BREONNA ([facility]) Cyclobenzaprine hydrochloride 10 MG Oral Tablet cyclob enzaprine 10 mg tablet cyclobenzaprine 10 mg tablet completed cyclobenzaprine hydrochloride 10 MG Oral Tablet [facility] ([facility]) Cephalexin 500 MG Oral Capsule cephalexin 500 mg capsu le cephalexin 500 mg capsule completed cephalexin 500 MG Oral Capsule BREON[facility] ([facility]) [place] 12 mg tablet [id number] completed deutetrabenazine 12 MG Oral Tablet [Austedo] BREONNA ([facility]) Meclizine Hydrochloride 25 MG Oral Tablet meclizine 25 mg tablet meclizine 25 mg tablet completed meclizine hydr ochloride 25 MG Oral Tablet BRE[facility] ([facility]) 24 HR venlafaxine 37.5 MG Extended Relea se Oral Capsule venlafaxine ER 37.5 mg capsule,extended release 24 hr TAKE ONE CAPSULE BY MOUTH ONCE DAILY WITH DINNER venlafaxine ER 37.5 mg capsule,extended release 24 hr TAKE ONE CAPSULE BY MOUTH ONCE DAILY WITH DINNER completed 24 HR venlafaxine 37.5 MG Extended Release Oral Capsule BRE[facility] ([facility]) Hydroxyzine Hydrochloride 50 MG Oral Tablet hydroxyzin [...] hydrochloride 20 0 MG Oral Tablet BRE[facility] ([facility]) Fluconazole 150 MG Oral Tablet fluconazole 150 mg tabl et fluconazole 150 mg tablet completed fluconazole 150 MG Oral Tablet [place] ([facility]) 24 HR venlafaxine 37.5 MG Extended Relea se Oral Capsule venlafaxine ER 37.5 mg capsule,extended release 24 hr TAKE ONE CAPSULE BY MOUTH ONCE DAILY WITH DINNER venlafaxine ER 37.5 mg capsule,extended release 24 hr TAKE ONE CAPSULE BY MOUTH ONCE DAILY WITH DINNER completed 24 HR venlafaxine 37.5 MG Extended Release Oral Capsule BRE[facility] ([facility]) Citalopram 40 MG Oral Tablet citalopram 40 mg tablet TAKE ONE TABLET BY MOUTH @8AM citalopram 40 mg tablet TAKE ONE TABLET BY MOUTH @8AM completed citalopram 40 MG Oral Tablet [facility] ([facility]) 24 HR venlafaxine 150 MG Extended Releas [...] 150 MG Extended Release Oral Capsule BRE[facility] ([facility]) 24 HR venlafaxine 75 MG Extended Release Oral Capsule venlafaxine ER 75 mg capsule,extended release 24 hr venlafaxine ER 75 mg capsule,extended re lease 24 hr completed 24 HR v enlafaxine 75 MG Extended Release Oral Capsule BREON[facility] ([facility]) Ondansetron 4 MG Oral Tablet ondansetron HCl 4 mg tabl et ondansetron HCl 4 mg tablet completed ondansetron 4 M G Oral Tablet [place] ([facility]) Ranitidine 150 MG Oral Tablet ranitidine 150 mg tablet ranit idine 150 mg tablet completed ranitidine 150 MG Oral Tablet [place] ([facility]) [place] 6 mg tablet [id number] completed deutetrabenazine 6 MG Oral Tablet [Austedo] BREONNA ([facility]) Bacitracin 0.4 UNT/MG / Neomycin 0.0035 MG/MG / Polymyxin B 5 UNT/MG Topical Ointment Triple Antibiotic 3.5 mg-400 unit-5,000 unit/gram topical ointment Triple Antibiotic 3.5 mg-400 unit-5,000 unit/gram topical ointment completed bacitracin 0.4 UNT/M G / neomycin 0.0035 MG/MG / polymyxin B 5 UNT/MG Topical Ointment BREON[facility] ([facility]) cefdinir 300 MG Oral Capsule cefdinir 30 0 mg capsule TAKE ONE CAPSULE BY MOUTH EVERY 12 HOURS FOR 7 DAYS cefdinir 300 mg capsule TAKE ONE CAPSULE BY MOUTH EVERY 12 HOURS FOR 7 DAYS completed cefdinir 300 MG Oral Capsule [facility] ([facility]) [place] 9 mg tablet [id number] completed deutetrabenazine 9 MG Oral Tablet [Austedo] BREON[facility] ([facility]) Hydroxyzine Hydrochloride 25 MG Oral Tablet hydroxyzin e HCl 25 mg tablet hydroxyzine HCl 25 mg tablet completed hydroxyzine hydrochloride 25 MG Oral Tablet [facility] ([facility]) cefdinir 300 MG Oral Capsule cefdinir 30 0 mg capsule TAKE ONE CAPSULE BY MOUTH EVERY 12 HOURS FOR 7 DAYS cefdinir 300 mg capsule TAKE ONE CAPSULE BY MOUTH EVERY 12 HOURS FOR 7 DAYS completed cefdinir 300 MG Oral Capsule [facility] ([facility]) aripiprazole 20 MG Oral Tablet aripipraz ole 20 mg tablet TAKE 1/2 TABLET BY MOUTH @8AM and TAKE 1/2 TABLET BY MOUTH @5PM aripiprazole 20 mg tablet TAKE 1/2 TABLET BY MOUTH @8AM and TAKE 1/2 TABLET BY MOUTH @5PM completed aripiprazole 20 MG Oral Tablet BREONNA ([facility]) 24 HR venlafaxine 37.5 MG Extended Relea se Oral Capsule venlafaxine ER 37.5 mg capsule,extended release 24 hr TAKE ONE CAPSULE BY MOUTH ONCE DAILY WITH DINNER venlafaxine ER 37.5 mg capsule,extended release 24 hr TAKE ONE CAPSULE BY MOUTH ONCE DAILY WITH DINNER completed 24 HR venlafaxine 37.5 MG Extended Release Oral Capsule [facility] ([facility]) cefdinir 300 MG Oral Capsule cefdinir 30 0 mg capsule TAKE ONE CAPSULE BY MOUTH EVERY 12 HOURS FOR 7 DAYS cefdinir 300 mg capsule TAKE ONE CAPSULE BY MOUTH EVERY 12 HOURS FOR 7 DAYS completed cefdinir 300 MG Oral Capsule [place] ([facility]) Cyclobenzaprine hydrochloride 10 MG Oral Tablet cyclob enzaprine 10 mg tablet cyclobenzaprine 10 mg tablet completed cyclobenzaprine hydrochloride 10 MG Oral Tablet [place] ([facility]) Ranitidine 150 MG Oral Tablet ranitidine 150 mg tablet ranit idine 150 mg tablet completed ranitidine 150 MG Oral Tablet [place] ([facility]) Citalopram 20 MG Oral Tablet citalopram 20 mg tablet citalopram 20 mg tablet completed citalopram 20 MG Oral Tablet [place] ([facility]) Hydroxyzine Hydrochloride 25 MG Oral Tablet hydroxyzin e HCl 25 mg tablet hydroxyzine HCl 25 mg tablet completed hydroxyzine hydrochloride 25 MG Oral Tablet [place] ([facility]) Amoxicillin 875 MG / Clavulanate 125 MG Oral Tablet amoxicillin 875 mg-potassium clavulanate 125 mg tablet amoxicillin 875 mg-potassium clavulanate 125 mg tablet completed amoxici llin 875 MG / clavulanate 125 MG Oral Tablet [place] ([facility]) Phenazopyridine hydrochloride 200 MG Ora l Tablet phenazopyridine 200 mg tablet TAKE ONE TABLET BY MOUTH THREE TIMES A DAY FOR 2 DAYS phenazopyridine 200 mg tablet TAKE ONE TABLET BY MOUTH THREE TIMES A DAY FOR 2 DAYS completed phenazopyridine hydrochloride 20 0 MG Oral Tablet [facility]) montelukast 10 MG Oral Tablet montelukast 10 mg tablet monte lukast 10 mg tablet completed montelukast 10 MG Oral Tablet [place] ([facility]) Hydroxyzine Hydrochloride 50 MG Oral Tablet hydroxyzin e HCl 50 mg tablet hydroxyzine HCl 50 mg tablet completed hydroxyzine hydrochloride 50 MG Oral Tablet [place] ([facility]) Azithromycin 250 MG Oral Tablet azithromycin 250 mg ta blet azithromycin 250 mg tablet completed azithromycin 25 0 MG Oral Tablet [facility]) aripiprazole 15 MG Oral Tablet aripipraz ole 15 mg tablet TAKE ONE TABLET BY MOUTH @8PM aripiprazole 15 mg tablet TAKE ONE TABLET BY MOUTH @8PM completed aripiprazole 15 MG Oral Tablet A [facility] ([facility]) Naproxen 500 MG Oral Tablet naproxen 500 mg tablet naproxen 500 mg ta blet completed naproxen 500 MG Oral Tablet BRE[place] ([facility]) Cephalexin 500 MG Oral Capsule cephalexin 500 mg capsu le cephalexin 500 mg capsule completed cephalexin 500 MG Oral Capsule BRE[facility] ([facility]) vitamin d3 50 mcg (1999) tabs completed vitamin d3 50 mcg (1999) tabs BREONNA ([facility]) Hydrocortisone 10 MG/ML / Neomycin 3.5 M G/ML / Polymyxin B [id number] UNT/ML Otic Solution tsdqanec-gyjzwudlc-zaxnfigqk 3.5 mg/mL-10,000 unit/mL-1 % ear solution mrmdczpg-alrsofuye-lcqqhopdh 3.5 mg/mL-10,000 unit/mL-1 % ear solution completed hydrocortisone 10 MG/ML / neomycin 3.5 MG/ML / polymyxin B 07969 UNT/ML Otic Solution BREONNA ([facility]) Hydroxyzine Hydrochloride 25 MG Oral Tablet hydroxyzin e HCl 25 mg tablet hydroxyzine HCl 25 mg tablet completed hydroxyzine hydrochloride 25 MG Oral Tablet [place] ([facility]) Cephalexin 500 MG Oral Capsule cephalexi n 500 mg capsule TAKE ONE CAPSULE BY MOUTH THREE TIMES A DAY FOR 7 DAYS cephalexin 500 mg capsule TAKE ONE CAPSU LE BY MOUTH THREE TIMES A DAY FOR 7 DAYS co mpleted cephalexin 500 MG Oral Capsule [place] ([facility]) Citalopram 20 MG Oral Tablet citalopram 20 mg tablet citalopram 20 mg tablet completed citalopram 20 MG Oral Tablet BREON[facility] ([facility]) Amoxicillin 875 MG / Clavulanate 125 MG Oral Tablet amoxicillin 875 mg-potassium clavulanate 125 mg tablet amoxicillin 875 mg-potassium clavulanate 125 mg tablet completed amoxici llin 875 MG / clavulanate 125 MG Oral Tablet BREON[facility] ([facility]) aripiprazole 15 MG Oral Tablet aripipraz ole 15 mg tablet TAKE ONE TABLET BY MOUTH @8PM aripiprazole 15 mg tablet TAKE ONE TABLET BY MOUTH @8PM completed aripiprazole 15 MG Oral Tablet A [facility] ([facility]) Hydrochlorothiazide 25 MG Oral Tablet hy drochlorothiazide 25 mg tablet TAKE ONE TABLET BY MOUTH @8AM hydrochlorothiazide 25 mg tablet TAKE ON E TABLET BY MOUTH @8AM completed hydrochlorothiaz syed 25 MG Oral Tablet BREONNA ([facility]) montelukast 10 MG Oral Tablet montelukast 10 mg tablet monte lukast 10 mg tablet completed montelukast 10 MG Oral Tablet RBEONNA ([facility]) cetirizine hydrochloride 10 MG Oral Tabl et cetirizine 10 mg tablet TAKE ONE TABLET BY MOUTH EVERY MORNING AT 8 A.M. cetirizine 10 mg tablet TAKE ONE TABLET BY MOUTH EVERY MORNING AT 8 A.M. compl eted cetirizine hydrochloride 10 MG Oral Tablet BREONNA ([facility]) atorvastatin 10 MG Oral Tablet atorvasta tin 10 mg tablet TAKE 1 TABLET BY MOUTH AT 5 00PM atorvastatin 10 mg tablet TAKE 1 TABLET BY MOUTH AT 5 00PM completed atorvastatin 10 MG Oral Tabl et BREONNA ([facility]) Bacitracin 0.4 UNT/MG / Neomycin 0.0035 MG/MG / Polymyxin B 5 UNT/MG Topical Ointment Triple Antibiotic 3.5 mg-400 unit-5,000 unit/gram topical ointment Triple Antibiotic 3.5 mg-400 unit-5,000 unit/gram topical ointment completed bacitracin 0.4 UNT/M G / neomycin 0.0035 MG/MG / polymyxin B 5 UNT/MG Topical Ointment BREONNA ([facility]) Hydroxyzine Hydrochloride 25 MG Oral Tablet hydroxyzin e HCl 25 mg tablet hydroxyzine HCl 25 mg tablet completed hydroxyzine hydrochloride 25 MG Oral Tablet [facility] ([facility]) Citalopram 20 MG Oral Tablet citalopram 20 mg tablet citalopram 20 mg tablet completed citalopram 20 MG Oral Tablet [facility] ([facility]) Ranitidine 150 MG Oral Tablet ranitidine 150 mg tablet ranit idine 150 mg tablet completed ranitidine 150 MG Oral Tablet [facility] ([facility]) Nystatin [id number] UNT/ML Topical Cream nys tatin 100,000 unit/gram topical cream APPLY 1 APPLICATION EXTERNALLY TO AFFECTED AREA S TWICE A DAY FOR 14 DAYS nystatin 100,000 unit/gram topical cream APPLY 1 APPLICATION EXTERNALLY TO AFFECTED AREA S TWICE A DAY FOR 14 DAYS completed nystatin [id number] UNT/ML Topical Cream BREONNA ([facility]) Hydrocortisone 10 MG/ML / Neomycin 3.5 M G/ML / Polymyxin B 38941 UNT/ML Otic Solution bqlcdwyl-gzvwrtgrg-oaggnlpvo 3.5 mg/mL-10,000 unit/mL-1 % ear solution amqhouze-llpyysghp-daxkhnppi 3.5 mg/mL-10,000 unit/mL-1 % ear solution completed hydrocortisone 10 MG/ML / neomycin 3.5 MG/ML / polymyxin B 81689 UNT/ML Otic Solution BREONNA ([facility]) [place] 6 mg tablet [id number] completed deutetrabenazine 6 MG Oral Tablet [Austedo] BREONNA ([facility]) Ranitidine 150 MG Oral Tablet ranitidine 150 mg tablet ranit idine 150 mg tablet completed ranitidine 150 MG Oral Tablet BREONNA ([facility]) Hydrocortisone 10 MG/ML / Neomycin 3.5 M G/ML / Polymyxin B 24848 UNT/ML Otic Solution fxbysiof-kjgsmuubf-cgsqqncit 3.5 mg/mL-10,000 unit/mL-1 % ear solution zugifzeq-henhckhmb-lilkjxjll 3.5 mg/mL-10,000 unit/mL-1 % ear solution completed hydrocortisone 10 MG/ML / neomycin 3.5 MG/ML / polymyxin B 11683 UNT/ML Otic Solution BREONNA ([facility]) 24 HR venlafaxine 37.5 MG Extended Relea se Oral Capsule venlafaxine ER 37.5 mg capsule,extended release 24 hr TAKE ONE CAPSULE BY MOUTH ONCE DAILY WITH DINNER venlafaxine ER 37.5 mg capsule,extended release 24 hr TAKE ONE CAPSULE BY MOUTH ONCE DAILY WITH DINNER completed 24 HR venlafaxine 37.5 MG Extended Release Oral Capsule BREONNA ([facility]) Amoxicillin 875 MG / Clavulanate 125 MG Oral Tablet amoxicillin 875 mg-potassium clavulanate 125 mg tablet amoxicillin 875 mg-potassium clavulanate 125 mg tablet completed amoxici llin 875 MG / clavulanate 125 MG Oral Tablet BREONNA ([facility]) [place] 6 mg tablet [id number] completed deutetrabenazine 6 MG Oral Tablet [Austedo] BREONNA ([facility]) atorvastatin 10 MG Oral Tablet atorvasta tin 10 mg tablet TAKE 1 TABLET BY MOUTH AT 5 00PM atorvastatin 10 mg tablet TAKE 1 TABLET BY MOUTH AT 5 00PM completed atorvastatin 10 MG Oral Tabl et BREONNA ([facility]) Azithromycin 250 MG Oral Tablet azithromycin 250 mg ta blet azithromycin 250 mg tablet completed azithromycin 25 0 MG Oral Tablet [place] ([facility]) aripiprazole 20 MG Oral Tablet aripipraz ole 20 mg tablet TAKE 1/2 TABLET BY MOUTH @8AM and TAKE 1/2 TABLET BY MOUTH @5PM aripiprazole 20 mg tablet TAKE 1/2 TABLET BY MOUTH @8AM and TAKE 1/2 TABLET BY MOUTH @5PM completed aripiprazole 20 MG Oral Tablet [place] ([facility]) Bacitracin 0.4 UNT/MG / Neomycin 0.0035 MG/MG / Polymyxin B 5 UNT/MG Topical Ointment Triple Antibiotic 3.5 mg-400 unit-5,000 unit/gram topical ointment Triple Antibiotic 3.5 mg-400 unit-5,000 unit/gram topical ointment completed bacitracin 0.4 UNT/M G / neomycin 0.0035 MG/MG / polymyxin B 5 UNT/MG Topical Ointment [place] ([facility]) aripiprazole 20 MG Oral Tablet aripipraz ole 20 mg tablet TAKE 1/2 TABLET BY MOUTH @8AM and TAKE 1/2 TABLET BY MOUTH @5PM aripiprazole 20 mg tablet TAKE 1/2 TABLET BY MOUTH @8AM and TAKE 1/2 TABLET BY MOUTH @5PM completed aripiprazole 20 MG Oral Tablet [place] ([facility]) Amoxicillin 875 MG Oral Tablet amoxicillin 875 mg tabl et amoxicillin 875 mg tablet completed amoxicillin 875 MG Oral Tablet [place] ([facility]) [place] 12 mg tablet [id number] completed deutetrabenazine 12 MG Oral Tablet [Austedo] [place] ([facility]) aripiprazole 20 MG Oral Tablet aripipraz ole 20 mg tablet TAKE 1/2 TABLET BY MOUTH @8AM and TAKE 1/2 TABLET BY MOUTH @5PM aripiprazole 20 mg tablet TAKE 1/2 TABLET BY MOUTH @8AM and TAKE 1/2 TABLET BY MOUTH @5PM completed aripiprazole 20 MG Oral Tablet [place] ([facility]) Azithromycin 250 MG Oral Tablet azithromycin 250 mg ta blet azithromycin 250 mg tablet completed azithromycin 25 0 MG Oral Tablet [place] ([facility]) aripiprazole 15 MG Oral Tablet aripipraz ole 15 mg tablet TAKE ONE TABLET BY MOUTH @8PM aripiprazole 15 mg tablet TAKE ONE TABLET BY MOUTH @8PM completed aripiprazole 15 MG Oral Tablet A [facility] ([facility]) Amoxicillin 875 MG Oral Tablet amoxicillin 875 mg tabl et amoxicillin 875 mg tablet completed amoxicillin 875 MG Oral Tablet [facility] ([facility]) atorvastatin 10 MG Oral Tablet atorvasta tin 10 mg tablet TAKE 1 TABLET BY MOUTH AT 5 00PM atorvastatin 10 mg tablet TAKE 1 TABLET BY MOUTH AT 5 00PM completed atorvastatin 10 MG Oral Tabl et [facility] ([facility]) [place] 6 mg tablet [id number] completed deutetrabenazine 6 MG Oral Tablet [Austedo] BREONNA ([facility]) Cephalexin 500 MG Oral Capsule cephalexin 500 mg capsu le cephalexin 500 mg capsule completed cephalexin 500 MG Oral Capsule [place] ([facility]) Ondansetron 4 MG Oral Tablet ondansetron HCl 4 mg tabl et ondansetron HCl 4 mg tablet completed ondansetron 4 M G Oral Tablet [place] ([facility]) Hydrochlorothiazide 25 MG Oral Tablet hy drochlorothiazide 25 mg tablet TAKE ONE TABLET BY MOUTH @8AM hydrochlorothiazide 25 mg tablet TAKE ON E TABLET BY MOUTH @8AM completed hydrochlorothiaz syed 25 MG Oral Tablet [facility] ([facility]) atorvastatin 10 MG Oral Tablet atorvasta tin 10 mg tablet TAKE 1 TABLET BY MOUTH AT 5 00PM atorvastatin 10 mg tablet TAKE 1 TABLET BY MOUTH AT 5 00PM completed atorvastatin 10 MG Oral Tabl et BREON[facility] ([facility]) montelukast 10 MG Oral Tablet montelukast 10 mg tablet monte lukast 10 mg tablet completed montelukast 10 MG Oral Tablet [facility] ([facility]) [place] 6 mg tablet [id number] completed deutetrabenazine 6 MG Oral Tablet [Austedo] BREONNA ([facility]) montelukast 10 MG Oral Tablet montelukast 10 mg tablet monte lukast 10 mg tablet completed montelukast 10 MG Oral Tablet [facility] ([facility]) Hydroxyzine Hydrochloride 25 MG Oral Tablet hydroxyzin e HCl 25 mg tablet hydroxyzine HCl 25 mg tablet completed hydroxyzine hydrochloride 25 MG Oral Tablet [facility] ([facility]) Naproxen 500 MG Oral Tablet naproxen 500 mg tablet naproxen 500 mg ta blet completed naproxen 500 MG Oral Tablet [facility] ([facility]) aripiprazole 20 MG Oral Tablet aripipraz ole 20 mg tablet TAKE 1/2 TABLET BY MOUTH @8AM and TAKE 1/2 TABLET BY MOUTH @5PM aripiprazole 20 mg tablet TAKE 1/2 TABLET BY MOUTH @8AM and TAKE 1/2 TABLET BY MOUTH @5PM completed aripiprazole 20 MG Oral Tablet [facility] ([facility]) Citalopram 20 MG Oral Tablet citalopram 20 mg tablet citalopram 20 mg tablet completed citalopram 20 MG Oral Tablet [place] ([facility]) aripiprazole 15 MG Oral Tablet aripipraz ole 15 mg tablet TAKE ONE TABLET BY MOUTH @8PM aripiprazole 15 mg tablet TAKE ONE TABLET BY MOUTH @8PM completed aripiprazole 15 MG Oral Tablet A [facility] ([facility]) Hydroxyzine Hydrochloride 50 MG Oral Tablet hydroxyzin e HCl 50 mg tablet hydroxyzine HCl 50 mg tablet completed hydroxyzine hydrochloride 50 MG Oral Tablet [place] ([facility]) Azithromycin 250 MG Oral Tablet azithromycin 250 mg ta blet azithromycin 250 mg tablet completed azithromycin 25 0 MG Oral Tablet [place] ([facility]) Amoxicillin 875 MG Oral Tablet amoxicillin 875 mg tabl et amoxicillin 875 mg tablet completed amoxicillin 875 MG Oral Tablet [place] ([facility]) Ranitidine 150 MG Oral Tablet ranitidine 150 mg tablet ranit idine 150 mg tablet completed ranitidine 150 MG Oral Tablet [place] ([facility]) Fluconazole 150 MG Oral Tablet fluconazole 150 mg tabl et fluconazole 150 mg tablet completed fluconazole 150 MG Oral Tablet [place] ([facility]) aripiprazole 15 MG Oral Tablet aripipraz ole 15 mg tablet TAKE ONE TABLET BY MOUTH @8PM aripiprazole 15 mg tablet TAKE ONE TABLET BY MOUTH @8PM completed aripiprazole 15 MG Oral Tablet A [facility] ([facility]) Ranitidine 150 MG Oral Tablet ranitidine 150 mg tablet ranit idine 150 mg tablet completed ranitidine 150 MG Oral Tablet [place] ([facility]) 24 HR metoprolol succinate 50 MG Extende d Release Oral Tablet metoprolol succinate ER 50 mg tablet,extended release 24 hr metoprolol succinate ER 50 mg tablet,extended release 24 hr complete d 24 HR metoprolol succinate 50 MG Extended Release Oral Tablet [place] ([facility]) [place] 9 mg tablet [id number] completed deutetrabenazine 9 MG Oral Tablet [Austedo] [place] ([facility]) 24 HR metoprolol succinate 50 MG Extende d Release Oral Tablet metoprolol succinate ER 50 mg tablet,extended release 24 hr metoprolol succinate ER 50 mg tablet,extended release 24 hr complete d 24 HR metoprolol succinate 50 MG Extended Release Oral Tablet [place] ([facility]) Azithromycin 250 MG Oral Tablet azithromycin 250 mg ta blet azithromycin 250 mg tablet completed azithromycin 25 0 MG Oral Tablet [place] ([facility]) Hydroxyzine Hydrochloride 50 MG Oral Tablet hydroxyzin e HCl 50 mg tablet hydroxyzine HCl 50 mg tablet completed hydroxyzine hydrochloride 50 MG Oral Tablet [place] ([facility]) 24 HR venlafaxine 150 MG Extended Releas e Oral Capsule venlafaxine ER 150 mg capsule,extended release 24 hr TAKE 1 CAPSULE BY MOUTH EVERY MORNING AND 1 CAPSULE AT 1 P.M. venlafaxine ER 150 mg capsule,extended r elease 24 hr TAKE 1 CAPSULE BY MOUTH EVERY MORNING AND 1 CAPSULE AT 1 P.M. completed 24 HR venlafaxine 150 MG Extended Release Oral Capsule [place] ([facility]) montelukast 10 MG Oral Tablet montelukast 10 mg tablet monte lukast 10 mg tablet completed montelukast 10 MG Oral Tablet [place] ([facility]) Amoxicillin 875 MG / Clavulanate 125 MG Oral Tablet amoxicillin 875 mg-potassium clavulanate 125 mg tablet amoxicillin 875 mg-potassium clavulanate 125 mg tablet completed amoxici llin 875 MG / clavulanate 125 MG Oral Tablet [place] ([facility]) Ondansetron 4 MG Oral Tablet ondansetron HCl 4 mg tabl et ondansetron HCl 4 mg tablet completed ondansetron 4 M G Oral Tablet [place] ([facility]) Ondansetron 4 MG Oral Tablet ondansetron HCl 4 mg tabl et ondansetron HCl 4 mg tablet completed ondansetron 4 M G Oral Tablet [place] ([facility]) Meclizine Hydrochloride 25 MG Oral Tablet meclizine 25 mg tablet meclizine 25 mg tablet completed meclizine hydr ochloride 25 MG Oral Tablet [place] ([facility]) Austedo 12 mg tablet [id number] completed deutetrabenazine 12 MG Oral Tablet [Austedo] [place] ([facility]) Amoxicillin 875 MG / Clavulanate 125 MG Oral Tablet amoxicillin 875 mg-potassium clavulanate 125 mg tablet amoxicillin 875 mg-potassium clavulanate 125 mg tablet completed amoxici llin 875 MG / clavulanate 125 MG Oral Tablet [place] ([facility]) Meclizine Hydrochloride 25 MG Oral Tablet meclizine 25 mg tablet meclizine 25 mg tablet completed meclizine hydr ochloride 25 MG Oral Tablet [place] ([facility]) 24 HR venlafaxine 37.5 MG Extended Relea se Oral Capsule venlafaxine ER 37.5 mg capsule,extended release 24 hr TAKE ONE CAPSULE BY MOUTH ONCE DAILY WITH DINNER venlafaxine ER 37.5 mg capsule,extended release 24 hr TAKE ONE CAPSULE BY MOUTH ONCE DAILY WITH DINNER completed 24 HR venlafaxine 37.5 MG Extended Release Oral Capsule [place] ([facility]) Nystatin 269144 UNT/ML Topical Cream nys tatin 100,000 unit/gram topical cream APPLY 1 APPLICATION EXTERNALLY TO AFFECTED AREA S TWICE A DAY FOR 14 DAYS nystatin 100,000 unit/gram topical cream APPLY 1 APPLICATION EXTERNALLY TO AFFECTED AREA S TWICE A DAY FOR 14 DAYS completed nystatin 913370 UNT/ML Topical Cream [place] ([facility]) cefdinir 300 MG Oral Capsule cefdinir 30 0 mg capsule TAKE ONE CAPSULE BY MOUTH EVERY 12 HOURS FOR 7 DAYS cefdinir 300 mg capsule TAKE ONE CAPSULE BY MOUTH EVERY 12 HOURS FOR 7 DAYS completed cefdinir 300 MG Oral Capsule [place] ([facility]) Insurance Providers Payer name Policy type / Coverage type Policy ID Covered alliance party ID Covered alliance party's relationship to skinner Policy Skinner Plan Information [facility] [id number] SP [id number] [facility] [id number] SP [id number] UNHC COMMUNITY PLAN MCDHMO [id number] SP [id number] [facility] [id number] SP [id number] UNHC COMMUNITY PLAN MCDHMO [id number] SP [id number] MEDICAID [id number] SP [id number] UNHC COMMUNITY PLAN MCDHMO [id number] SP [id number] UHC I [id number] Self [id number] Medicaid S [id number] Managed Care - Community Plan [facility] P [id number] S [id number] Medicaid S [id number] S [id number] UNHC COMMUNITY PLAN MCDHMO [id number] SP [id number] Managed Care - Community Plan [facility] P [id number] S [id number] Medicaid S [id number] S [id number] [facility] [id number] SP [id number] Managed Care - UHC Community Plan P [id number] S [id number] UNHC COMMUNITY PLAN MCDHMO [id number] SP [id number] Managed Care - Community Plan [facility] P [id number] S [id number] UNHC COMMUNITY PLAN MCDHMO [id number] SP [id number] Medicaid S [id number] S [id number] Managed Care - UHC Community Plan P [id number] S [id number] MEDICAID P [id number] S [id number] [employer] PLAN [id number] SP [id number] [employer] PLAN [id number] SP [id number] HMO BLUE [id number] SP [id number] [facility] [id number] SP [id number] UNHC COMMUNITY PLAN MCDHMO [id number] SP [id number] EMEDNY [id number] SP [id number] [facility](MCAID) O [id number] S [id number] MEDICAID [id number] SP [id number] [facility] [id number] Self [id number] [facility] [id number] Self [id number] ANSI-Medicaid [id number] [facility] [id number] Self 1 [id number] [facility] [id number] [facility] [id number] Self [id number] [facility] [id number] Self 1 [id number] [facility] [id number] Self 1 [id number] Medicaid Dental O [id number] S [id number] [facility] [id number] SP [id number] [facility] Health Maintenance Organization (HMO) [id number] Self [id number] MEDICAID [id number] SP [id number] MEDICAID [id number] SP [id number] [facility] OFFICE OF MENTAL HEALTH [id number] S [id number] [facility] OFFICE OF MENTAL HEALTH [id number] S [id number] [facility] Hmo Commercial [id number] Self [facility](MCAID) P [id number] S [id number] Problems, Conditions, and Diagnoses Code Display Name Description Problem Type Effective Dates Data Source(s) 03339794 Essential hypertension Essential hypertension Problem 07/01/2021 12:00:00 AM EDT [facility] A ([facility]) N92.0 4354877 Spotting Problem 05/09/2021 12:00:00 AM ED T eCW1 ([facility]) [id number] Patient asked to attend Patient Asked to Attend [facility] 04/24/2021 12:00:00 AM EDT [place] ([facility]) 119499249 Body mass index 40+ - severely obese Bod y Mass Index 40+ - Severely Obese Problem 04/24/2021 12:00:00 AM EDT [place] ([facility]) 878116983 Edema of lower extremity Edema of Lower Extremity Prob williams 04/24/2021 12:00:00 AM EDT [place] ([facility]) 284820106 Type II diabetes mellitus uncontrolled T ype II Diabetes Mellitus Uncontrolled Problem 04/24/2021 12:00:00 AM EDT [place] ([facility]) [id number] Patient asked to attend Patient Asked to Attend [facility] 04/24/2021 12:00:00 AM EDT [place] ([facility]) 301401754 Body mass index 40+ - severely obese Bod y Mass Index 40+ - Severely Obese Problem 04/24/2021 12:00:00 AM EDT [place] ([facility]) 898522413 Edema of lower extremity Edema of Lower Extremity Prob williams 04/24/2021 12:00:00 AM EDT [place] ([facility]) 004842361 Type II diabetes mellitus uncontrolled T ype II Diabetes Mellitus Uncontrolled Problem 04/24/2021 12:00:00 AM EDT [place] ([facility]) [id number] Patient asked to attend Patient Asked to Attend [facility] 04/24/2021 12:00:00 AM EDT [place] ([facility]) 348527460 Body mass index 40+ - severely obese Bod y Mass Index 40+ - Severely Obese Problem 04/24/2021 12:00:00 AM EDT [place] ([facility]) 909067692 Edema of lower extremity Edema of Lower Extremity Prob williams 04/24/2021 12:00:00 AM EDT [place] ([facility]) 746920869 Type II diabetes mellitus uncontrolled T ype II Diabetes Mellitus Uncontrolled Problem 04/24/2021 12:00:00 AM EDT [place] ([facility]) 971598675 Patient asked to attend Patient Asked to Attend Proble m 04/24/2021 12:00:00 AM EDT [place] ([facility]) 084287605 Body mass index 40+ - severely obese Bod y Mass Index 40+ - Severely Obese Problem 04/24/2021 12:00:00 AM EDT [place] ([facility]) 605316474 Edema of lower extremity Edema of Lower Extremity Prob williams 04/24/2021 12:00:00 AM EDT [place] ([facility]) 895049292 Type II diabetes mellitus uncontrolled T ype II Diabetes Mellitus Uncontrolled Problem 04/24/2021 12:00:00 AM EDT [place] ([facility]) 823016195 At risk - finding At Risk - Finding Problem 04/20 12:00:00 AM EDT [place] ([facility]) 843369743 Low income Low Income Problem 04/20/2021 12:00:00 AM ED T [place] ([facility]) 719245273 Food insecurity Food Insecurity Problem 04/20/2021 12:0 0:00 AM EDT [place] ([facility]) 503255111 Food insecurity Food Insecurity Problem 04/20/2021 12:0 0:00 AM EDT [place] ([facility]) 904377826 At risk - finding At Risk - Finding Problem 04/20 12:00:00 AM EDT [place] ([facility]) 521640013 Low income Low Income Problem 04/20/2021 12:00:00 AM ED T [place] ([facility]) 939022708 Food insecurity Food Insecurity Problem 04/20/2021 12:0 0:00 AM EDT [place] ([facility]) 243926155 At risk - finding At Risk - Finding Problem 04/20 12:00:00 AM EDT [place] ([facility]) 425333664 Low income Low Income Problem 04/20/2021 12:00:00 AM ED T [place] ([facility]) 216140957 Food insecurity Food Insecurity Problem 04/20/2021 12:0 0:00 AM EDT [place] ([facility]) 725045813 At risk - finding At Risk - Finding Problem 04/20 12:00:00 AM EDT [place] ([facility]) 825194584 Low income Low Income Problem 04/20/2021 12:00:00 AM ED T [place] ([facility]) 188902636 Type 2 diabetes mellitus without complic ation Type 2 Diabetes Mellitus without Complication Problem 07/22/2020 12:00:00 AM EST [place] ([facility]) 324276086 Type 2 diabetes mellitus without complic ation Type 2 Diabetes Mellitus without Complication Problem 07/22/2020 12:00:00 AM EST [place] ([facility]) 657026779 Type 2 diabetes mellitus without complic ation Type 2 Diabetes Mellitus without Complication Problem 07/22/2020 12:00:00 AM EST [place] ([facility]) 796738067 Type 2 diabetes mellitus without complic ation Type 2 Diabetes Mellitus without Complication Problem 07/22/2020 12:00:00 AM EST [place] ([facility]) [id number] Type 2 diabetes mellitus without complic ation Type 2 Diabetes Mellitus without Complication Problem 07/22/2020 12:00:00 AM EST [place] ([facility]) 689519070 Type 2 diabetes mellitus without complic ation Type 2 Diabetes Mellitus without Complication Problem 07/22/2020 12:00:00 AM EST [place] ([facility]) 750701728 Type 2 diabetes mellitus without complic ation Type 2 Diabetes Mellitus without Complication Problem 07/22/2020 12:00:00 AM EST [place] ([facility]) 695.89 Intertrigo Intertrigo 06/01/2020 09:52:10 AM ED T [facility] 87892844 Intertrigo Intertrigo Problem 06/01/2020 12:0 0:00 AM EDT - 02/15/2021 12:00:00 AM EDT [place] ([facility]) [id number] Intertrigo Intertrigo Problem 06/01/2020 12:0 0:00 AM EDT - 02/15/2021 12:00:00 AM EDT [place] ([facility]) 70840080 Intertrigo Intertrigo Problem 06/01/2020 12:0 0:00 AM EDT - 02/15/2021 12:00:00 AM EDT [place] ([facility]) [id number] Intertrigo Intertrigo Problem 06/01/2020 12:0 0:00 AM EDT - 02/15/2021 12:00:00 AM EDT [place] ([facility]) [id number] Intertrigo Intertrigo Problem 06/01/2020 12:00:00 AM ED T [place] ([facility]) [id number] Intertrigo Intertrigo Problem 06/01/2020 12:0 0:00 AM EDT - 02/15/2021 12:00:00 AM EDT [place] ([facility]) 990321222 Pain radiating to lower abdomen Pain Radiating t o Lower Abdomen Problem 03/25/2020 12:00:00 AM EDT - 02/15/2021 12:00:00 AM ED T [place] ([facility]) 99807525 Sinusitis Sinusitis Problem 03/25/2020 12:0 0:00 AM EDT - 02/15/2021 12:00:00 AM EDT [place] ([facility]) 560762071 Pain radiating to lower abdomen Pain Radiating t o Lower Abdomen Problem 03/25/2020 12:00:00 AM EDT - 02/15/2021 12:00:00 AM ED T [place] ([facility]) [id number] Sinusitis Sinusitis Problem 03/25/2020 12:0 0:00 AM EDT - 02/15/2021 12:00:00 AM EDT [place] ([facility]) 392018474 Pain radiating to lower abdomen Pain Radiating t o Lower Abdomen Problem 03/25/2020 12:00:00 AM EDT - 02/15/2021 12:00:00 AM ED T [place] ([facility]) 47886301 Sinusitis Sinusitis Problem 03/25/2020 12:0 0:00 AM EDT - 02/15/2021 12:00:00 AM EDT [place] ([facility]) [id number] Sinusitis Sinusitis Problem 03/25/2020 12:0 0:00 AM EDT - 02/15/2021 12:00:00 AM EDT [place] ([facility]) 004077136 Pain radiating to lower abdomen Pain Radiating t o Lower Abdomen Problem 03/25/2020 12:00:00 AM EDT - 02/15/2021 12:00:00 AM ED T [place] ([facility]) [id number] Sinusitis Sinusitis Problem 03/25/2020 12:0 0:00 AM EDT - 02/15/2021 12:00:00 AM EDT [place] ([facility]) [id number] Pain radiating to lower abdomen Pain Radiating t o Lower Abdomen Problem 03/25/2020 12:00:00 AM EDT - 02/15/2021 12:00:00 AM ED T [place] ([facility]) 669845682 Dizziness and giddiness Dizziness and Giddiness Proble 12/18/2019 12:00:00 AM EDT - 02/15/2021 12:00:00 AM EDT [place] ([facility]) 070993972 Ingrowing nail Ingrowing Nail Problem 12/18/2019 12:00:00 AM EDT - 02/15/2021 12:00:00 AM EDT [place] ([facility]) [id number] Dizziness and giddiness Dizziness and Giddiness Proble 12/18/2019 12:00:00 AM EDT - 02/15/2021 12:00:00 AM EDT [place] ([facility]) [id number] Ingrowing nail Ingrowing Nail Problem 12/18/2019 12:00:00 AM EDT - 02/15/2021 12:00:00 AM EDT [place] ([facility]) [id number] Dizziness and giddiness Dizziness and Giddiness Proble 12/18/2019 12:00:00 AM EDT - 02/15/2021 12:00:00 AM EDT [place] ([facility]) [id number] Ingrowing nail Ingrowing Nail Problem 12/18/2019 12:00:00 AM EDT - 02/15/2021 12:00:00 AM EDT [place] ([facility]) [id number] Dizziness and giddiness Dizziness and Giddiness Proble m 12/18/2019 12:00:00 AM EDT - 02/15/2021 12:00:00 AM EDT [place] ([facility]) 405643640 Ingrowing nail Ingrowing Nail Problem 12/18/2019 12:00:00 AM EDT - 02/15/2021 12:00:00 AM EDT [place] ([facility]) [id number] Dizziness and giddiness Dizziness and Giddiness Proble m 12/18/2019 12:00:00 AM EDT - 02/15/2021 12:00:00 AM EDT [place] ([facility]) [id number] Ingrowing nail Ingrowing Nail Problem 12/18/2019 12:00:00 AM EDT - 02/15/2021 12:00:00 AM EDT [place] ([facility]) [id number] Knee pain Knee Pain Problem 03/07/2019 12:0 0:00 AM EDT - 02/15/2021 12:00:00 AM EDT [place] ([facility]) [id number] Finding of knee region Finding of Knee Region Problem 03/07/2019 12:00:00 AM EDT - 10/20/2020 12:00:00 AM EST [place] ([facility]) [id number] Knee pain Knee Pain Problem 03/07/2019 12:0 0:00 AM EDT - 02/15/2021 12:00:00 AM EDT [place] ([facility]) [id number] Finding of knee region Finding of Knee Region Problem 03/07/2019 12:00:00 AM EDT - 10/20/2020 12:00:00 AM EST [place] ([facility]) [id number] Knee pain Knee Pain Problem 03/07/2019 12:0 0:00 AM EDT - 02/15/2021 12:00:00 AM EDT [place] ([facility]) [id number] Finding of knee region Finding of Knee Region Problem 03/07/2019 12:00:00 AM EDT - 10/20/2020 12:00:00 AM EST [place] ([facility]) 865692049 Finding of knee region Finding of Knee Region Problem 03/07/2019 12:00:00 AM EDT - 10/20/2020 12:00:00 AM EST [place] ([facility]) [id number] Finding of knee region Finding of Knee Region Problem 03/07/2019 12:00:00 AM EDT - 10/20/2020 12:00:00 AM EST [place] ([facility]) [id number] Knee pain Knee Pain Problem 03/07/2019 12:0 0:00 AM EDT - 02/15/2021 12:00:00 AM EDT [place] ([facility]) [id number] Finding of knee region Finding of Knee Region Problem 03/07/2019 12:00:00 AM EDT - 10/20/2020 12:00:00 AM JESSICA RAVI ([facility]) [id number] Knee pain Knee Pain Problem 03/07/2019 12:0 0:00 AM EDT - 02/15/2021 12:00:00 AM EDT [place] ([facility]) [id number] Inflammatory dermatosis Inflammatory Dermatosis Proble 12/23/2018 12:00:00 AM EDT - 02/15/2021 12:00:00 AM EDT [place] ([facility]) [id number] Inflammatory dermatosis Inflammatory Dermatosis Proble 12/23/2018 12:00:00 AM EDT - 02/15/2021 12:00:00 AM EDT [place] ([facility]) [id number] Inflammatory dermatosis Inflammatory Dermatosis Proble 12/23/2018 12:00:00 AM EDT - 02/15/2021 12:00:00 AM EDT [place] ([facility]) [id number] Inflammatory dermatosis Inflammatory Dermatosis Proble 12/23/2018 12:00:00 AM EDT - 02/15/2021 12:00:00 AM EDT [place] ([facility]) [id number] Inflammatory dermatosis Inflammatory Dermatosis Proble m 12/23/2018 12:00:00 AM EDT - 02/15/2021 12:00:00 AM EDT [place] ([facility]) [id number] Obesity in mother complicating childbirt h Obesity in Mother Complicating Childbirth Problem 12/09/2018 12:00:00 AM EDT - 02/15/2021 12:00:00 AM EDT [place] ([facility]) [id number] Backache Backache Problem 12/09/2018 12:0 0:00 AM EDT - 02/15/2021 12:00:00 AM EDT [place] ([facility]) [id number] Obesity in mother complicating childbirt h Obesity in Mother Complicating Childbirth Problem 12/09/2018 12:00:00 AM EDT - 02/15/2021 12:00:00 AM EDT [place] ([facility]) [id number] Backache Backache Problem 12/09/2018 12:0 0:00 AM EDT - 02/15/2021 12:00:00 AM EDT [place] ([facility]) [id number] Obesity in mother complicating childbirt h Obesity in Mother Complicating Childbirth Problem 12/09/2018 12:00:00 AM EDT - 02/15/2021 12:00:00 AM EDT [place] ([facility]) [id number] Backache Backache Problem 12/09/2018 12:0 0:00 AM EDT - 02/15/2021 12:00:00 AM EDT [place] ([facility]) [id number] Obesity in mother complicating childbirt h Obesity in Mother Complicating Childbirth Problem 12/09/2018 12:00:00 AM EDT - 02/15/2021 12:00:00 AM EDT [place] ([facility]) [id number] Backache Backache Problem 12/09/2018 12:0 0:00 AM EDT - 02/15/2021 12:00:00 AM EDT [place] ([facility]) [id number] Obesity in mother complicating childbirt h Obesity in Mother Complicating Childbirth Problem 12/09/2018 12:00:00 AM EDT - 02/15/2021 12:00:00 AM EDT [place] ([facility]) 388683031 Backache Backache Problem 12/09/2018 12:0 0:00 AM EDT - 02/15/2021 12:00:00 AM EDT [place] ([facility]) [id number] Syphilis test finding Syphilis Test Finding Problem 07/08/2018 12:00:00 AM EDT - 02/15/2021 12:00:00 AM EDT [place] ([facility]) [id number] Influenza vaccine needed Influenza Vaccine Needed Pro blem 07/08/2018 12:00:00 AM EDT - 02/15/2021 12:00:00 AM EDT [place] ([facility]) 349747767 Syphilis test finding Syphilis Test Finding Problem 07/08/2018 12:00:00 AM EDT - 02/15/2021 12:00:00 AM EDT [place] ([facility]) 0509902731815 Influenza vaccine needed Influenza Vaccine Needed Pro blem 07/08/2018 12:00:00 AM EDT - 02/15/2021 12:00:00 AM EDT [place] ([facility]) [id number] Syphilis test finding Syphilis Test Finding Problem 07/08/2018 12:00:00 AM EDT - 02/15/2021 12:00:00 AM EDT [place] ([facility]) [id number] Influenza vaccine needed Influenza Vaccine Needed Pro blem 07/08/2018 12:00:00 AM EDT - 02/15/2021 12:00:00 AM EDT [place] ([facility]) [id number] Syphilis test finding Syphilis Test Finding Problem 07/08/2018 12:00:00 AM EDT - 02/15/2021 12:00:00 AM EDT [place] ([facility]) [id number] Influenza vaccine needed Influenza Vaccine Needed Pro blem 07/08/2018 12:00:00 AM EDT - 02/15/2021 12:00:00 AM EDT [place] ([facility]) [id number] Syphilis test finding Syphilis Test Finding Problem 07/08/2018 12:00:00 AM EDT - 02/15/2021 12:00:00 AM EDT [place] ([facility]) [id number] Influenza vaccine needed Influenza Vaccine Needed Pro blem 07/08/2018 12:00:00 AM EDT - 02/15/2021 12:00:00 AM EDT [place] ([facility]) [id number] Pain in left knee Pain in Left Knee Problem 12:00:00 AM EDT - 02/15/2021 12:00:00 AM EDT [place] ([facility]) [id number] Pain of left shoulder joint Pain of Left Shoul judit Joint Problem 12/27/2017 12:00:00 AM EDT - 02/15/2021 12:00:00 AM ED Christos RAVI ([facility]) [id number] Pain in left knee Pain in Left Knee Problem 12:00:00 AM EDT - 02/15/2021 12:00:00 AM EDT [place] ([facility]) [id number] Pain of left shoulder joint Pain of Left Shoul judit Joint Problem 12/27/2017 12:00:00 AM EDT - 02/15/2021 12:00:00 AM ED Christos RAVI ([facility]) [id number] Pain in left knee Pain in Left Knee Problem 12:00:00 AM EDT - 02/15/2021 12:00:00 AM EDT [place] ([facility]) [id number] Pain of left shoulder joint Pain of Left Shoul judit Joint Problem 12/27/2017 12:00:00 AM EDT - 02/15/2021 12:00:00 AM ED Christos RAVI ([facility]) [id number] Pain in left knee Pain in Left Knee Problem 12:00:00 AM EDT - 02/15/2021 12:00:00 AM EDT [place] ([facility]) [id number] Pain of left shoulder joint Pain of Left Shoul judit Joint Problem 12/27/2017 12:00:00 AM EDT - 02/15/2021 12:00:00 AM ED Christos RAVI ([facility]) [id number] Pain in left knee Pain in Left Knee Problem 12:00:00 AM EDT - 02/15/2021 12:00:00 AM EDT [place] ([facility]) [id number] Pain of left shoulder joint Pain of Left Shoul judit Joint Problem 12/27/2017 12:00:00 AM EDT - 02/15/2021 12:00:00 AM ED T [place] ([facility]) 3076576 Tinea pedis Tinea Pedis Problem 09/03/2017 12:0 0:00 AM EST - 02/15/2021 12:00:00 AM EDT [place] ([facility]) [id number] Tinea pedis Tinea Pedis Problem 09/03/2017 12:0 0:00 AM EST - 02/15/2021 12:00:00 AM EDT [place] ([facility]) [id number] Tinea pedis Tinea Pedis Problem 09/03/2017 12:0 0:00 AM EST - 02/15/2021 12:00:00 AM EDT [place] ([facility]) [id number] Tinea pedis Tinea Pedis Problem 09/03/2017 12:0 0:00 AM EST - 02/15/2021 12:00:00 AM EDT [place] ([facility]) [id number] Tinea pedis Tinea Pedis Problem 09/03/2017 12:0 0:00 AM EST - 02/15/2021 12:00:00 AM EDT [place] ([facility]) [id number] Cough Cough Problem 05/03/2017 12:0 0:00 AM EDT - 02/15/2021 12:00:00 AM EDT [place] ([facility]) 41993051 Cough Cough Problem 05/03/2017 12:0 0:00 AM EDT - 02/15/2021 12:00:00 AM EDT [place] ([facility]) [id number] Cough Cough Problem 05/03/2017 12:0 0:00 AM EDT - 02/15/2021 12:00:00 AM EDT [place] ([facility]) [id number] Cough Cough Problem 05/03/2017 12:0 0:00 AM EDT - 02/15/2021 12:00:00 AM EDT [place] ([facility]) [id number] Cough Cough Problem 05/03/2017 12:0 0:00 AM EDT - 02/15/2021 12:00:00 AM EDT [place] ([facility]) [id number] Evaluation procedure Evaluation Procedure Problem 10/31/2016 12:00:00 AM EST - 10/20/2020 12:00:00 AM EST [place] ([facility]) [id number] Clinical finding Clinical Finding Problem 017 12:00:00 AM EST - 10/20/2020 12:00:00 AM EST [place] ([facility]) [id number] Exposure to second hand tobacco smoke Ex posure to Second Hand Tobacco Smoke Problem 10/31/2016 12:00:00 AM EST - 02/15/2021 12:00:00 AM EDT [place] ([facility]) [id number] Idiopathic peripheral neuropathy Idiopathic Rosario pheral Neuropathy Problem 10/31/2016 12:00:00 AM EST - 02/15/2021 12:00:00 AM ED T [place] ([facility]) [id number] Evaluation procedure Evaluation Procedure Problem 10/31/2016 12:00:00 AM EST - 10/20/2020 12:00:00 AM EST [place] ([facility]) [id number] Clinical finding Clinical Finding Problem 017 12:00:00 AM EST - 10/20/2020 12:00:00 AM EST [place] ([facility]) [id number] Exposure to second hand tobacco smoke Ex posure to Second Hand Tobacco Smoke Problem 10/31/2016 12:00:00 AM EST - 02/15/2021 12:00:00 AM EDT [place] ([facility]) [id number] Idiopathic peripheral neuropathy Idiopathic Rosario pheral Neuropathy Problem 10/31/2016 12:00:00 AM EST - 02/15/2021 12:00:00 AM ED T [place] ([facility]) [id number] Evaluation procedure Evaluation Procedure Problem 10/31/2016 12:00:00 AM EST - 10/20/2020 12:00:00 AM EST [place] ([facility]) [id number] Clinical finding Clinical Finding Problem 017 12:00:00 AM EST - 10/20/2020 12:00:00 AM EST [place] ([facility]) [id number] Exposure to second hand tobacco smoke Ex posure to Second Hand Tobacco Smoke Problem 10/31/2016 12:00:00 AM EST - 02/15/2021 12:00:00 AM EDT [place] ([facility]) [id number] Idiopathic peripheral neuropathy Idiopathic Rosario pheral Neuropathy Problem 10/31/2016 12:00:00 AM EST - 02/15/2021 12:00:00 AM ED T [place] ([facility]) [id number] Evaluation procedure Evaluation Procedure Problem 10/31/2016 12:00:00 AM EST - 10/20/2020 12:00:00 AM EST [place] ([facility]) [id number] Clinical finding Clinical Finding Problem 017 12:00:00 AM EST - 10/20/2020 12:00:00 AM EST [place] ([facility]) [id number] Evaluation procedure Evaluation Procedure Problem 10/31/2016 12:00:00 AM EST - 10/20/2020 12:00:00 AM EST [place] ([facility]) [id number] Clinical finding Clinical Finding Problem 017 12:00:00 AM EST - 10/20/2020 12:00:00 AM EST [place] ([facility]) [id number] Exposure to second hand tobacco smoke Ex posure to Second Hand Tobacco Smoke Problem 10/31/2016 12:00:00 AM EST - 02/15/2021 12:00:00 AM EDT [place] ([facility]) [id number] Idiopathic peripheral neuropathy Idiopathic Rosario pheral Neuropathy Problem 10/31/2016 12:00:00 AM EST - 02/15/2021 12:00:00 AM ED T [place] ([facility]) [id number] Evaluation procedure Evaluation Procedure Problem 10/31/2016 12:00:00 AM EST - 10/20/2020 12:00:00 AM EST [place] ([facility]) [id number] Clinical finding Clinical Finding Problem 017 12:00:00 AM EST - 10/20/2020 12:00:00 AM EST [place] ([facility]) [id number] Exposure to second hand tobacco smoke Ex posure to Second Hand Tobacco Smoke Problem 10/31/2016 12:00:00 AM EST - 02/15/2021 12:00:00 AM EDT [place] ([facility]) [id number] Idiopathic peripheral neuropathy Idiopathic Rosario pheral Neuropathy Problem 10/31/2016 12:00:00 AM EST - 02/15/2021 12:00:00 AM ED T [place] ([facility]) Surgeries/Procedures Procedure Description Date Indications Data Source(s) Diabetic Foot Exam 07/04/2021 12:00:00 AM EDT [facility] ([facility]) OFFICE OUTPATIENT NEW 60 MINUTES 07/04/2021 12:00:00 A M EDT [facility] ([facility]) Inject/Drain Arthrocentesis Major Joint/Bursa/Ganglion Cyst 07/22/2020 12:00:00 AM EST [facility] ([facility], ) X-Ray Shoulder Complete 07/22/2020 12:00:00 AM EST [facility] ([facility], ) RADEX SHOULDER COMPLETE MINIMUM 2 VIEWS 07/22/2020 12: 00:00 AM EST [facility] ([facility]) Results ID Date Data Source [id number] 07/04/2021 01:27:00 PM EDT [facility] ([facility]) Name Value Range Interpretation Code Description Data Shari rce(s) Supporting Document(s) Glucose [Mass/volume] in Serum or Plasma [facility] Hemoglobin A1c/Hemoglobin.total in Blood 8.1 [facility] ID Date Data Source [id number] 05/10/2021 02:43:00 PM EDT [place] ([facility]) Name Value Range Interpretation Code Description Data Shari rce(s) Supporting Document(s) HCG, serum qualitative negative negative HCG, Serum Qu alitative [place] ([facility]) ID Date Data Source [id number] 05/10/2021 02:43:00 PM EDT [facility]) Name Value Range Interpretation Code Description Data Shari rce(s) Supporting Document(s) HCG, serum qualitative negative negative HCG, Serum Qu alitative [place] ([facility]) ID Date Data Source HCG SERUM QUALITATIVE 05/10/2021 12:00:00 AM EDT eCW1 ([facility]) Name Value Range Interpretation Code Description Data Shari rce(s) Supporting Document(s) NEGATIVE NEGATIVE HCG, SERUM QUALITATIVE eC W1 ([facility]) ID Date Data Source [id number] 03/31/2021 03:53:00 PM EDT [facility]) Name Value Range Interpretation Code Description Data Shari rce(s) Supporting Document(s) ID Date Data Source [id number] 03/31/2021 03:53:00 PM EDT [place] ([facility]) Name Value Range Interpretation Code Description Data Shari rce(s) Supporting Document(s) appearance, urine manual clear clear Appearance, Urine Manual [facility]) pH,urine man 5.5 units 5.0 - 7.0 pH,urine Man [place] ([facility]) color, urine manual yellow yellow Color, Urine Man ual [place] ([facility]) specific gravity,urine manual 1.002-1.035 Above high normal Specific [place],urine Manual [place] ([facility]) protein, urine manual negative negative Protein, Urine Manual [place] ([facility]) ketone, urine manual negative negative Ketone, Urine M anual [place] ([facility]) glucose, urine (UA) manual 4+(1000 mg/dL) negative Above high n ormal Glucose, Urine (UA) Manual [facility]) bilirubin, urine manual negative negative Bilirubin, U rine Manual [facility]) urobilinogen, urine manual normal normal Urobilino gen, Urine Manual [place] ([facility]) leukocyte esterase, urine man negative negative Leukoc yte Esterase, Urine Man [place] ([facility]) nitrite, urine manual negative negative Nitrite, Urine Manual [place] ([facility]) blood urine manual negative negative Blood Urine Manua l [place] ([facility]) ID Date Data Source [id number] 03/31/2021 03:53:00 PM EDT [facility]) Name Value Range Interpretation Code Description Data Shari rce(s) Supporting Document(s) cholesterol level 147 mg/dL <200 Cholesterol Level [place] ([facility]) triglycerides level 103 mg/dL <150 Triglycerides Le cheryl [place] ([facility]) HDL cholesterol 43 mg/dL >40 HDL Cholesterol [facility] ([facility]) Cholesterol in LDL [Mass/volume] in Serum or Plasma 83 mg/dL <1 00 LDL Cholesterol [place] ([facility]) cholesterol risk ratio <5 Cholesterol R isk Ratio [place] ([facility]) non-HDL-C 104 mg/dL Non-hdl-c [place] ([facility]) ID Date Data Source [id number] 03/31/2021 03:53:00 PM EDT [facility]) Name Value Range Interpretation Code Description Data Shari rce(s) Supporting Document(s) glucose, fasting 174 mg/dL 70-100 Above high normal Glucose, Fas ting [place] ([facility]) blood urea nitrogen 11 mg/dL 7-18 Blood Urea Nitro gen [place] ([facility]) creatinine for GFR 0.60 mg/dL 0.55-1.30 Creatinine for GF R [place] ([facility]) sodium level 141 mEq/L 136-145 Sodium Level [place] ([facility]) glomerular filtration rate > 60.0 >58 Glomerula r Filtration Rate [place] ([facility]) potassium serum 4.2 mEq/L 3.5-5.1 Potassium Serum [facility] chloride level 108 mEq/L 98-107 Above high normal Chloride Level [place] ([facility]) anion gap 6 mEq/L 8-16 Below low normal Anion Gap [place] ( [facility]) carbon dioxide level 27 mEq/L 21-32 Carbon Dioxide Level [place] ([facility]) AST/SGOT 55 U/L 7-37 Above high normal AST/SGOT [place] ([facility]) calcium level 9.6 mg/dL 8.5-10.1 Calcium Level [place] ( [facility]) alkaline phosphatase 117 U/L 45-117 Alkaline Phosph atase [place] ([facility]) ALT/SGPT 95 U/L 12-78 Above high normal ALT/SGPT [place] ([facility]) total protein 7.1 gm/dL 6.4-8.2 Total Protein [place] ( [facility]) bilirubin,total 0.6 mg/dL 0.2-1.0 Bilirubin,total [facility] albumin/globulin ratio 1.2-2.2 Below low normal Albumin /globulin Ratio [place] ([facility]) albumin 3.5 gm/dL 3.2-5.2 Albumin [place] ([facility]) ID Date Data Source [id number] 03/31/2021 03:53:00 PM EDT [place] ([facility]) Name Value Range Interpretation Code Description Data Shari rce(s) Supporting Document(s) appearance, urine manual clear clear Appearance, Urine Manual [place] ([facility]) pH,urine man 5.5 units 5.0 - 7.0 pH,urine Man [place] ([facility]) color, urine manual yellow yellow Color, Urine Man ual [place] ([facility]) specific gravity,urine manual 1.002-1.035 Above high normal Specific [place],urine Manual [place] ([facility]) protein, urine manual negative negative Protein, Urine Manual [place] ([facility]) ketone, urine manual negative negative Ketone, Urine M anual [place] ([facility]) glucose, urine (UA) manual 4+(1000 mg/dL) negative Above high n ormal Glucose, Urine (UA) Manual [place] ([facility]) bilirubin, urine manual negative negative Bilirubin, U rine Manual [place] ([facility]) urobilinogen, urine manual normal normal Urobilino gen, Urine Manual [place] ([facility]) leukocyte esterase, urine man negative negative Leukoc yte Esterase, Urine Man [place] ([facility]) nitrite, urine manual negative negative Nitrite, Urine Manual [place] ([facility]) blood urine manual negative negative Blood Urine Manua l [place] ([facility]) ID Date Data Source [id number] 03/31/2021 03:53:00 PM EDT [place] ([facility]) Name Value Range Interpretation Code Description Data Shari rce(s) Supporting Document(s) Hemoglobin A1c/Hemoglobin.total in Blood 9.3 % Hemoglobin a1C [place] ([facility]) estimated average glucose 220 mg/dL 60-110 Above high norm al Estimated Average Glucose [place] ([facility]) ID Date Data Source [id number] 03/31/2021 03:53:00 PM EDT [place] ([facility]) Name Value Range Interpretation Code Description Data Shari rce(s) Supporting Document(s) white blood count 8.0 10 4.0-10.0 White Blood Count [place] ([facility]) red blood count 4.90 10 4.00-5.40 Red Blood Count [facility] ([facility]) hemoglobin 13.9 g/dL 12.0-15.5 Hemoglobin [place] ([facility]) hematocrit 43.0 % 36.0-47.0 Hematocrit [place] ([facility]) mean corpuscular volume 87.8 fL 80.0-96.0 Mean Corpusc ular Volume [place] ([facility]) mean corpuscular hemoglobin 28.4 pg 27.0-33.0 Mean Cor puscular Hemoglobin [place] ([facility]) mean corpuscular HGB conc 32.3 g/dL 32.0-36.5 Mean Corpu scular HGB Conc [place] ([facility]) red cell distribution width 12.6 % 11.5-14.5 Red Cell Distribution Width [place] ([facility]) neutrophils % 52.2 % 36.0-66.0 Neutrophils % [place] ( [facility]) platelet count, automated 311 10 150-450 Platelet C ount, Automated [place] ([facility]) lymph % 36.3 % 24.0-44.0 Lymph % [place] ([facility]) mono % 7.7 % 2.0-8.0 [place] % [place] ([facility]) baso % 0.7 % 0.0-1.0 Baso % [place] ([facility]) eos % 2.7 % 0.0-3.0 Eos % [place] ([facility]) nucleated red blood cell % 0.0 % 0-0 Nucleated Red Blood Cell % [place] ([facility]) immature granulocyte % 0.4 % 0-3.0 Immature Gran ulocyte % [place] ([facility]) neutrophils # 4.2 10 1.5-8.5 Neutrophils # [place] ( [facility]) lymph # 2.9 10 1.5-5.0 Lymph # [place] ([facility]) eos # 0.2 10 0.0-0.5 Eos # [place] ([facility]) mono # 0.6 10 0.0-0.8 [place] # [place] ([facility]) baso # 0.1 10 0.0-0.2 Baso # [place] ([facility]) ID Date Data Source [id number] 03/31/2021 03:53:00 PM EDT [place] ([facility]) Name Value Range Interpretation Code Description Data Shari rce(s) Supporting Document(s) ID Date Data Source [id number] 03/31/2021 03:53:00 PM EDT [place] ([facility]) Name Value Range Interpretation Code Description Data Shari rce(s) Supporting Document(s) appearance, urine manual clear clear Appearance, Urine Manual [place] ([facility]) color, urine manual yellow yellow Color, Urine Man ual [place] ([facility]) pH,urine man 5.5 units 5.0 - 7.0 pH,urine Man [place] (No [facility]) glucose, urine (UA) manual 4+(1000 mg/dL) negative Above high n ormal Glucose, Urine (UA) Manual [place] ([facility]) protein, urine manual negative negative Protein, Urine Manual [place] ([facility]) specific gravity,urine manual 1.002-1.035 Above high normal Specific [place],urine Manual [place] ([facility]) ketone, urine manual negative negative Ketone, Urine M anual [place] ([facility]) urobilinogen, urine manual normal normal Urobilino gen, Urine Manual [place] ([facility]) leukocyte esterase, urine man negative negative Leukoc yte Esterase, Urine Man [place] ([facility]) bilirubin, urine manual negative negative Bilirubin, U rine Manual [place] ([facility]) nitrite, urine manual negative negative Nitrite, Urine Manual [place] ([facility]) blood urine manual negative negative Blood Urine Manua l [place] ([facility]) ID Date Data Source [id number] 03/31/2021 03:53:00 PM EDT [place] ([facility]) Name Value Range Interpretation Code Description Data Shari rce(s) Supporting Document(s) cholesterol level 147 mg/dL <200 Cholesterol Level [place] ([facility]) HDL cholesterol 43 mg/dL >40 HDL Cholesterol [facility] NA ([facility]) triglycerides level 103 mg/dL <150 Triglycerides Le cheryl [place] ([facility]) Cholesterol in LDL [Mass/volume] in Serum or Plasma 83 mg/dL <1 00 LDL Cholesterol [place] ([facility]) non-HDL-C 104 mg/dL Non-hdl-c [place] ([facility]) cholesterol risk ratio <5 Cholesterol R isk Ratio [place] ([facility]) ID Date Data Source [id number] 03/31/2021 03:53:00 PM EDT [place] ([facility]) Name Value Range Interpretation Code Description Data Shari rce(s) Supporting Document(s) glucose, fasting 174 mg/dL 70-100 Above high normal Glucose, Fas ting [place] ([facility]) blood urea nitrogen 11 mg/dL 7-18 Blood Urea Nitro gen [place] ([facility]) glomerular filtration rate > 60.0 >58 Glomerula r Filtration Rate [place] ([facility]) creatinine for GFR 0.60 mg/dL 0.55-1.30 Creatinine for GF R [place] ([facility]) sodium level 141 mEq/L 136-145 Sodium Level [place] ([facility]) carbon dioxide level 27 mEq/L 21-32 Carbon Dioxide Level [place] ([facility]) chloride level 108 mEq/L 98-107 Above high normal Chloride Level [place] ([facility]) potassium serum 4.2 mEq/L 3.5-5.1 Potassium Serum [facility] ([facility]) AST/SGOT 55 U/L 7-37 Above high normal AST/SGOT [place] ([facility]) anion gap 6 mEq/L 8-16 Below low normal Anion Gap [place] ( [facility]) calcium level 9.6 mg/dL 8.5-10.1 Calcium Level [place] ( [facility]) ALT/SGPT 95 U/L 12-78 Above high normal ALT/SGPT [place] ([facility]) bilirubin,total 0.6 mg/dL 0.2-1.0 Bilirubin,total [facility] ([facility]) alkaline phosphatase 117 U/L 45-117 Alkaline Phosph atase [place] ([facility]) total protein 7.1 gm/dL 6.4-8.2 Total Protein [place] ( [facility]) albumin 3.5 gm/dL 3.2-5.2 Albumin [place] ([facility]) albumin/globulin ratio 1.2-2.2 Below low normal Albumin /globulin Ratio [place] ([facility]) ID Date Data Source [id number] 03/31/2021 03:53:00 PM EDT [facility]) Name Value Range Interpretation Code Description Data Shari rce(s) Supporting Document(s) appearance, urine manual clear clear Appearance, Urine Manual [place] ([facility]) color, urine manual yellow yellow Color, Urine Man ual [place] ([facility]) pH,urine man 5.5 units 5.0 - 7.0 pH,urine Man [place] (No [facility]) specific gravity,urine manual 1.002-1.035 Above high normal Specific [place],urine Manual [place] ([facility]) protein, urine manual negative negative Protein, Urine Manual [place] ([facility]) ketone, urine manual negative negative Ketone, Urine M anual [place] ([facility]) glucose, urine (UA) manual 4+(1000 mg/dL) negative Above high n ormal Glucose, Urine (UA) Manual [place] ([facility]) urobilinogen, urine manual normal normal Urobilino gen, Urine Manual [place] ([facility]) leukocyte esterase, urine man negative negative Leukoc yte Esterase, Urine Man [place] ([facility]) nitrite, urine manual negative negative Nitrite, Urine Manual [place] ([facility]) bilirubin, urine manual negative negative Bilirubin, U rine Manual [place] ([facility]) blood urine manual negative negative Blood Urine Manua l [place] ([facility]) ID Date Data Source [id number] 03/31/2021 03:53:00 PM EDT [facility]) Name Value Range Interpretation Code Description Data Shari rce(s) Supporting Document(s) Hemoglobin A1c/Hemoglobin.total in Blood 9.3 % Hemoglobin a1C [facility]) estimated average glucose 220 mg/dL 60-110 Above high norm al Estimated Average Glucose [facility]) ID Date Data Source [id number] 03/31/2021 03:53:00 PM EDT [facility]) Name Value Range Interpretation Code Description Data Shari rce(s) Supporting Document(s) white blood count 8.0 10 4.0-10.0 White Blood Count [place] ([facility]) red blood count 4.90 10 4.00-5.40 Red Blood Count [facility] NA ([facility]) hematocrit 43.0 % 36.0-47.0 Hematocrit [place] ([facility]) hemoglobin 13.9 g/dL 12.0-15.5 Hemoglobin [place] ([facility]) mean corpuscular volume 87.8 fL 80.0-96.0 Mean Corpusc ular Volume [place] ([facility]) mean corpuscular hemoglobin 28.4 pg 27.0-33.0 Mean Cor puscular Hemoglobin [place] ([facility]) mean corpuscular HGB conc 32.3 g/dL 32.0-36.5 Mean Corpu scular HGB Conc [place] ([facility]) red cell distribution width 12.6 % 11.5-14.5 Red Cell Distribution Width [place] ([facility]) platelet count, automated 311 10 150-450 Platelet C ount, Automated [place] ([facility]) neutrophils % 52.2 % 36.0-66.0 Neutrophils % [place] ( [facility]) mono % 7.7 % 2.0-8.0 [place] % [place] ([facility]) lymph % 36.3 % 24.0-44.0 Lymph % [place] ([facility]) baso % 0.7 % 0.0-1.0 Baso % [place] ([facility]) eos % 2.7 % 0.0-3.0 Eos % [place] ([facility]) nucleated red blood cell % 0.0 % 0-0 Nucleated Red Blood Cell % [place] ([facility]) immature granulocyte % 0.4 % 0-3.0 Immature Gran ulocyte % [place] ([facility]) neutrophils # 4.2 10 1.5-8.5 Neutrophils # [place] ( [facility]) lymph # 2.9 10 1.5-5.0 Lymph # [place] ([facility]) mono # 0.6 10 0.0-0.8 [place] # [place] ([facility]) baso # 0.1 10 0.0-0.2 Baso # [place] ([facility]) eos # 0.2 10 0.0-0.5 Eos # [place] ([facility]) ID Date Data Source [id number] 03/31/2021 03:53:00 PM EDT [place] ([facility]) Name Value Range Interpretation Code Description Data Shari rce(s) Supporting Document(s) white blood count 8.0 10 4.0-10.0 White Blood Count [place] ([facility]) red blood count 4.90 10 4.00-5.40 Red Blood Count [facility] NA ([facility]) hemoglobin 13.9 g/dL 12.0-15.5 Hemoglobin [place] ([facility]) hematocrit 43.0 % 36.0-47.0 Hematocrit [place] ([facility]) mean corpuscular hemoglobin 28.4 pg 27.0-33.0 Mean Cor puscular Hemoglobin [facility] ([facility]) mean corpuscular volume 87.8 fL 80.0-96.0 Mean Corpusc ular Volume [facility] ([facility]) mean corpuscular HGB conc 32.3 g/dL 32.0-36.5 Mean Corpu scular HGB Conc [facility] ([facility]) red cell distribution width 12.6 % 11.5-14.5 Red Cell Distribution Width [facility] ([facility]) platelet count, automated 311 10 150-450 Platelet C ount, Automated [place] ([facility]) neutrophils % 52.2 % 36.0-66.0 Neutrophils % [place] ( [facility]) lymph % 36.3 % 24.0-44.0 Lymph % [place] ([facility]) eos % 2.7 % 0.0-3.0 Eos % [place] ([facility]) mono % 7.7 % 2.0-8.0 [place] % [place] ([facility]) immature granulocyte % 0.4 % 0-3.0 Immature Gran ulocyte % [facility] ([facility]) baso % 0.7 % 0.0-1.0 Baso % [place] ([facility]) nucleated red blood cell % 0.0 % 0-0 Nucleated Red Blood Cell % [facility] ([facility]) neutrophils # 4.2 10 1.5-8.5 Neutrophils # [place] ( [facility]) mono # 0.6 10 0.0-0.8 [place] # [place] ([facility]) lymph # 2.9 10 1.5-5.0 Lymph # [place] ([facility]) eos # 0.2 10 0.0-0.5 Eos # [place] ([facility]) baso # 0.1 10 0.0-0.2 Baso # [place] ([facility]) ID Date Data Source [id number] 03/31/2021 03:53:00 PM EDT [place] ([facility]) Name Value Range Interpretation Code Description Data Shari rce(s) Supporting Document(s) ID Date Data Source [id number] 03/31/2021 03:53:00 PM EDT [place] ([facility]) Name Value Range Interpretation Code Description Data Shari rce(s) Supporting Document(s) appearance, urine manual clear clear Appearance, Urine Manual [place] ([facility]) specific gravity,urine manual 1.002-1.035 Above high normal Specific [place],urine Manual [place] ([facility]) pH,urine man 5.5 units 5.0 - 7.0 pH,urine Man [place] (No [facility]) color, urine manual yellow yellow Color, Urine Man ual [place] ([facility]) glucose, urine (UA) manual 4+(1000 mg/dL) negative Above high n ormal Glucose, Urine (UA) Manual [place] ([facility]) protein, urine manual negative negative Protein, Urine Manual [place] ([facility]) ketone, urine manual negative negative Ketone, Urine M anual [place] ([facility]) bilirubin, urine manual negative negative Bilirubin, U rine Manual [place] ([facility]) urobilinogen, urine manual normal normal Urobilino gen, Urine Manual [place] ([facility]) nitrite, urine manual negative negative Nitrite, Urine Manual [place] ([facility]) blood urine manual negative negative Blood Urine Manua l [place] ([facility]) leukocyte esterase, urine man negative negative Leukoc yte Esterase, Urine Man [place] ([facility]) ID Date Data Source [id number] 03/31/2021 03:53:00 PM EDT [place] ([facility]) Name Value Range Interpretation Code Description Data Shari rce(s) Supporting Document(s) triglycerides level 103 mg/dL <150 Triglycerides Le cheryl [place] ([facility]) cholesterol level 147 mg/dL <200 Cholesterol Level [place] ([facility]) HDL cholesterol 43 mg/dL >40 HDL Cholesterol [place] ([facility]) Cholesterol in LDL [Mass/volume] in Serum or Plasma 83 mg/dL <1 00 LDL Cholesterol [place] ([facility]) non-HDL-C 104 mg/dL Non-hdl-c [place] ([facility]) cholesterol risk ratio <5 Cholesterol R isk Ratio [place] ([facility]) ID Date Data Source [id number] 03/31/2021 03:53:00 PM EDT [place] ([facility]) Name Value Range Interpretation Code Description Data Shari rce(s) Supporting Document(s) blood urea nitrogen 11 mg/dL 7-18 Blood Urea Nitro gen [place] ([facility]) glucose, fasting 174 mg/dL 70-100 Above high normal Glucose, Fas ting [place] ([facility]) creatinine for GFR 0.60 mg/dL 0.55-1.30 Creatinine for GF R [place] ([facility]) sodium level 141 mEq/L 136-145 Sodium Level [place] (No [facility]) potassium serum 4.2 mEq/L 3.5-5.1 Potassium Serum [facility] NA ([facility]) glomerular filtration rate > 60.0 >58 Glomerula r Filtration Rate [place] ([facility]) carbon dioxide level 27 mEq/L 21-32 Carbon Dioxide Level [place] ([facility]) chloride level 108 mEq/L 98-107 Above high normal Chloride Level [place] ([facility]) calcium level 9.6 mg/dL 8.5-10.1 Calcium Level [place] ( [facility]) anion gap 6 mEq/L 8-16 Below low normal Anion Gap [place] ( [facility]) AST/SGOT 55 U/L 7-37 Above high normal AST/SGOT [place] ([facility]) ALT/SGPT 95 U/L 12-78 Above high normal ALT/SGPT [place] ([facility]) total protein 7.1 gm/dL 6.4-8.2 Total Protein [place] ( [facility]) alkaline phosphatase 117 U/L 45-117 Alkaline Phosph atase [place] ([facility]) bilirubin,total 0.6 mg/dL 0.2-1.0 Bilirubin,total [facility] ([facility]) albumin/globulin ratio 1.2-2.2 Below low normal Albumin /globulin Ratio [place] ([facility]) albumin 3.5 gm/dL 3.2-5.2 Albumin [place] ([facility]) ID Date Data Source [id number] 03/31/2021 03:53:00 PM EDT [place] ([facility]) Name Value Range Interpretation Code Description Data Shari rce(s) Supporting Document(s) appearance, urine manual clear clear Appearance, Urine Manual [place] ([facility]) color, urine manual yellow yellow Color, Urine Man ual [place] ([facility]) pH,urine man 5.5 units 5.0 - 7.0 pH,urine Man [place] ([facility]) specific gravity,urine manual 1.002-1.035 Above high normal Specific [place],urine Manual [place] ([facility]) glucose, urine (UA) manual 4+(1000 mg/dL) negative Above high n ormal Glucose, Urine (UA) Manual [place] ([facility]) protein, urine manual negative negative Protein, Urine Manual [place] ([facility]) ketone, urine manual negative negative Ketone, Urine M anual [place] ([facility]) urobilinogen, urine manual normal normal Urobilino gen, Urine Manual [place] ([facility]) leukocyte esterase, urine man negative negative Leukoc yte Esterase, Urine Man [place] ([facility]) bilirubin, urine manual negative negative Bilirubin, U rine Manual [place] ([facility]) nitrite, urine manual negative negative Nitrite, Urine Manual [place] ([facility]) blood urine manual negative negative Blood Urine Manua amy [place] ([facility]) ID Date Data Source [id number] 03/31/2021 03:53:00 PM EDT [facility]) Name Value Range Interpretation Code Description Data Shari rce(s) Supporting Document(s) estimated average glucose 220 mg/dL 60-110 Above high norm al Estimated Average Glucose [place] ([facility]) Hemoglobin A1c/Hemoglobin.total in Blood 9.3 % Hemoglobin a1C [place] ([facility]) ID Date Data Source [id number] 03/31/2021 03:53:00 PM EDT [place] ([facility]) Name Value Range Interpretation Code Description Data Shari rce(s) Supporting Document(s) white blood count 8.0 10 4.0-10.0 White Blood Count [place] ([facility]) red blood count 4.90 10 4.00-5.40 Red Blood Count [facility] NA ([facility]) hemoglobin 13.9 g/dL 12.0-15.5 Hemoglobin [place] ([facility]) mean corpuscular hemoglobin 28.4 pg 27.0-33.0 Mean Cor puscular Hemoglobin [place] ([facility]) hematocrit 43.0 % 36.0-47.0 Hematocrit [place] ([facility]) mean corpuscular volume 87.8 fL 80.0-96.0 Mean Corpusc ular Volume [place] ([facility]) mean corpuscular HGB conc 32.3 g/dL 32.0-36.5 Mean Corpu scular HGB Conc [place] ([facility]) red cell distribution width 12.6 % 11.5-14.5 Red Cell Distribution Width [place] ([facility]) platelet count, automated 311 10 150-450 Platelet C ount, Automated [place] ([facility]) neutrophils % 52.2 % 36.0-66.0 Neutrophils % [place] ( [facility]) lymph % 36.3 % 24.0-44.0 Lymph % [place] ([facility]) mono % 7.7 % 2.0-8.0 [place] % [place] ([facility]) baso % 0.7 % 0.0-1.0 Baso % [place] ([facility]) eos % 2.7 % 0.0-3.0 Eos % [place] ([facility]) immature granulocyte % 0.4 % 0-3.0 Immature Gran ulocyte % [place] ([facility]) nucleated red blood cell % 0.0 % 0-0 Nucleated Red Blood Cell % [place] ([facility]) lymph # 2.9 10 1.5-5.0 Lymph # [place] ([facility]) mono # 0.6 10 0.0-0.8 [place] # [place] ([facility]) neutrophils # 4.2 10 1.5-8.5 Neutrophils # [place] ( [facility]) baso # 0.1 10 0.0-0.2 Baso # [place] ([facility]) eos # 0.2 10 0.0-0.5 Eos # [place] ([facility]) ID Date Data Source [id number] 03/31/2021 03:53:00 PM EDT [place] ([facility]) Name Value Range Interpretation Code Description Data Shari rce(s) Supporting Document(s) ID Date Data Source [id number] 03/31/2021 03:53:00 PM EDT [place] ([facility]) Name Value Range Interpretation Code Description Data Shari rce(s) Supporting Document(s) appearance, urine manual clear clear Appearance, Urine Manual [place] ([facility]) color, urine manual yellow yellow Color, Urine Man ual [facility]) specific gravity,urine manual 1.002-1.035 Above high normal Specific [place],urine Manual [place] ([facility]) protein, urine manual negative negative Protein, Urine Manual [place] ([facility]) pH,urine man 5.5 units 5.0 - 7.0 pH,urine Man [place] (No [facility]) glucose, urine (UA) manual 4+(1000 mg/dL) negative Above high n ormal Glucose, Urine (UA) Manual [place] ([facility]) urobilinogen, urine manual normal normal Urobilino gen, Urine Manual [place] ([facility]) ketone, urine manual negative negative Ketone, Urine M anual [place] ([facility]) leukocyte esterase, urine man negative negative Leukoc yte Esterase, Urine Man [place] ([facility]) nitrite, urine manual negative negative Nitrite, Urine Manual [place] ([facility]) bilirubin, urine manual negative negative Bilirubin, U rine Manual [place] ([facility]) blood urine manual negative negative Blood Urine Santiago reyes [place] ([facility]) ID Date Data Source [id number] 03/31/2021 03:53:00 PM EDT [facility]) Name Value Range Interpretation Code Description Data Shari rce(s) Supporting Document(s) triglycerides level 103 mg/dL <150 Triglycerides Le cheryl [place] ([facility]) HDL cholesterol 43 mg/dL >40 HDL Cholesterol [facility] NA ([facility]) cholesterol level 147 mg/dL <200 Cholesterol Level [place] ([facility]) Cholesterol in LDL [Mass/volume] in Serum or Plasma 83 mg/dL <1 00 LDL Cholesterol [place] ([facility]) cholesterol risk ratio <5 Cholesterol R isk Ratio [place] ([facility]) non-HDL-C 104 mg/dL Non-hdl-c [place] ([facility]) ID Date Data Source [id number] 03/31/2021 03:53:00 PM EDT [place] ([facility]) Name Value Range Interpretation Code Description Data Shari rce(s) Supporting Document(s) glucose, fasting 174 mg/dL 70-100 Above high normal Glucose, Fas ting [place] ([facility]) creatinine for GFR 0.60 mg/dL 0.55-1.30 Creatinine for GF R [place] ([facility]) blood urea nitrogen 11 mg/dL 7-18 Blood Urea Nitro gen [place] ([facility]) sodium level 141 mEq/L 136-145 Sodium Level [place] ([facility]) glomerular filtration rate > 60.0 >58 Glomerula r Filtration Rate [place] ([facility]) potassium serum 4.2 mEq/L 3.5-5.1 Potassium Serum [place] ([facility]) carbon dioxide level 27 mEq/L 21-32 Carbon Dioxide Level [place] ([facility]) chloride level 108 mEq/L 98-107 Above high normal Chloride Level [place] ([facility]) calcium level 9.6 mg/dL 8.5-10.1 Calcium Level [place] ( [facility]) AST/SGOT 55 U/L 7-37 Above high normal AST/SGOT [place] ([facility]) anion gap 6 mEq/L 8-16 Below low normal Anion Gap [place] ( [facility]) alkaline phosphatase 117 U/L 45-117 Alkaline Phosph atase [place] ([facility]) ALT/SGPT 95 U/L 12-78 Above high normal ALT/SGPT [place] ([facility]) total protein 7.1 gm/dL 6.4-8.2 Total Protein [place] ( [facility]) bilirubin,total 0.6 mg/dL 0.2-1.0 Bilirubin,total [place] ([facility]) albumin 3.5 gm/dL 3.2-5.2 Albumin [place] ([facility]) albumin/globulin ratio 1.2-2.2 Below low normal Albumin /globulin Ratio [place] ([facility]) ID Date Data Source [id number] 03/31/2021 03:53:00 PM EDT [facility]) Name Value Range Interpretation Code Description Data Shari rce(s) Supporting Document(s) appearance, urine manual clear clear Appearance, Urine Manual [place] ([facility]) color, urine manual yellow yellow Color, Urine Man ual [place] ([facility]) pH,urine man 5.5 units 5.0 - 7.0 pH,urine Man [place] (No [facility]) specific gravity,urine manual 1.002-1.035 Above high normal Specific [place],urine Manual [place] ([facility]) protein, urine manual negative negative Protein, Urine Manual [place] ([facility]) ketone, urine manual negative negative Ketone, Urine M anual [place] ([facility]) glucose, urine (UA) manual 4+(1000 mg/dL) negative Above high n ormal Glucose, Urine (UA) Manual [place] ([facility]) urobilinogen, urine manual normal normal Urobilino gen, Urine Manual [place] ([facility]) bilirubin, urine manual negative negative Bilirubin, U rine Manual [facility]) nitrite, urine manual negative negative Nitrite, Urine Manual [place] ([facility]) leukocyte esterase, urine man negative negative Leukoc yte Esterase, Urine Man [place] ([facility]) blood urine manual negative negative Blood Urine Manua l [place] ([facility]) ID Date Data Source [id number] 03/31/2021 03:53:00 PM EDT [facility]) Name Value Range Interpretation Code Description Data Shari rce(s) Supporting Document(s) Hemoglobin A1c/Hemoglobin.total in Blood 9.3 % Hemoglobin a1C [facility]) estimated average glucose 220 mg/dL 60-110 Above high norm al Estimated Average Glucose [facility]) ID Date Data Source [id number] 03/31/2021 03:32:00 PM EDT [facility]) Name Value Range Interpretation Code Description Data Shari rce(s) Supporting Document(s) Hemoglobin A1c/Hemoglobin.total in Blood Above high normal Hba1C [facility]) ID Date Data Source [id number] 03/31/2021 03:32:00 PM EDT [facility]) Name Value Range Interpretation Code Description Data Shari rce(s) Supporting Document(s) Hemoglobin A1c/Hemoglobin.total in Blood Above high normal Hba1C [facility]) ID Date Data Source [id number] 03/31/2021 03:32:00 PM EDT [facility]) Name Value Range Interpretation Code Description Data Shari rce(s) Supporting Document(s) Hemoglobin A1c/Hemoglobin.total in Blood Above high normal Hba1C [facility]) ID Date Data Source [id number] 03/31/2021 03:32:00 PM EDT [facility]) Name Value Range Interpretation Code Description Data Shari rce(s) Supporting Document(s) Hemoglobin A1c/Hemoglobin.total in Blood Above high normal Hba1C [facility]) ID Date Data Source [id number] 03/31/2021 03:32:00 PM EDT [facility]) Name Value Range Interpretation Code Description Data Shari rce(s) Supporting Document(s) Hemoglobin A1c/Hemoglobin.total in Blood Above high normal Hba1C [facility]) ID Date Data Source [id number] 03/31/2021 03:31:00 PM EDT [facility]) Name Value Range Interpretation Code Description Data Shari rce(s) Supporting Document(s) Blood Glucose: mg/dl Blood Glucose: mg/dl [facility]) ID Date Data Source [id number] 03/31/2021 03:31:00 PM EDT [place] ([facility]) Name Value Range Interpretation Code Description Data Shari rce(s) Supporting Document(s) Blood Glucose: mg/dl Blood Glucose: mg/dl [place] ([facility]) ID Date Data Source [id number] 03/31/2021 03:31:00 PM EDT [place] ([facility]) Name Value Range Interpretation Code Description Data Shari rce(s) Supporting Document(s) Blood Glucose: mg/dl Blood Glucose: mg/dl [place] ([facility]) ID Date Data Source [id number] 03/31/2021 03:31:00 PM EDT [facility]) Name Value Range Interpretation Code Description Data Shari rce(s) Supporting Document(s) Blood Glucose: mg/dl Blood Glucose: mg/dl [place] ([facility]) ID Date Data Source [id number] 03/10/2021 01:14:00 PM EDT [facility]) Name Value Range Interpretation Code Description Data Shari rce(s) Supporting Document(s) istat troponin 0.00 NG/mL 0.00-0.08 Istat Troponin [place] ([facility]) ID Date Data Source [id number] 03/10/2021 01:14:00 PM EDT [place] ([facility]) Name Value Range Interpretation Code Description Data Shari rce(s) Supporting Document(s) istat troponin 0.00 NG/mL 0.00-0.08 [facility] Date Data Source [id number] 03/10/2021 01:14:00 PM EDT [place] ([facility]) Name Value Range Interpretation Code Description Data Shari rce(s) Supporting Document(s) istat troponin 0.00 NG/mL 0.00-0.08 Istat Troponin [place] ([facility]) ID Date Data Source [id number] 03/10/2021 01:14:00 PM [facility] Name Value Range Interpretation Code Description Data Shari rce(s) Supporting Document(s) istat troponin 0.00 NG/mL 0.00-0.08 Istat Troponin [place] ([facility]) ID Date Data Source [id number] 03/10/2021 01:14:00 PM EDT [facility]) Name Value Range Interpretation Code Description Data Shari rce(s) Supporting Document(s) istat troponin 0.00 NG/mL 0.00-0.08 Istat Troponin [place] ([facility]) ID Date Data Source [id number] 03/10/2021 12:45:00 PM EDT [facility]) Name Value Range Interpretation Code Description Data Shari rce(s) Supporting Document(s) platelet estimate normal normal Platelet Estimate [place] ([facility]) ID Date Data Source [id number] 03/10/2021 12:45:00 PM EDT [facility]) Name Value Range Interpretation Code Description Data Shari rce(s) Supporting Document(s) lymphocytes 27 % 16-44 Lymphocytes [place] ([facility]) neutrophils 59 % 28-66 Neutrophils [place] ([facility]) atypical lymph 5 % 0-5 Atypical Lymph [place] ([facility]) monocytes 9 % 0-5 Above high normal Monocytes [place] ([facility]) ID Date Data Source [id number] 03/10/2021 12:45:00 PM EDT [place] ([facility]) Name Value Range Interpretation Code Description Data Shari rce(s) Supporting Document(s) white blood count 7.3 10 4.0-10.0 White Blood Count [place] ([facility]) hematocrit 44.8 % 36.0-47.0 Hematocrit [place] ([facility]) hemoglobin 15.1 g/dL 12.0-15.5 Hemoglobin [place] ([facility]) mean corpuscular volume 86.0 fL 80.0-96.0 Mean Corpusc ular Volume [place] ([facility]) red blood count 5.21 10 4.00-5.40 Red Blood Count [facility] ([facility]) red cell distribution width 12.5 % 11.5-14.5 Red Cell Distribution Width [place] ([facility]) mean corpuscular HGB conc 33.7 g/dL 32.0-36.5 Mean Corpu scular HGB Conc [place] ([facility]) mean corpuscular hemoglobin 29.0 pg 27.0-33.0 Mean Cor puscular Hemoglobin [place] ([facility]) platelet count, automated 296 10 150-450 Platelet C ount, Automated [place] ([facility]) nucleated red blood cell % 0.0 % 0-0 Nucleated Red Blood Cell % [place] ([facility]) ID Date Data Source [id number] 03/10/2021 12:45:00 PM EDT [place] ([facility]) Name Value Range Interpretation Code Description Data Shari rce(s) Supporting Document(s) thyroid stimulating hormone 1.740 uIU/mL 0.358-3.740 Thyroid Stimulating Hormone [place] ([facility]) ID Date Data Source [id number] 03/10/2021 12:45:00 PM EDT [facility]) Name Value Range Interpretation Code Description Data Shari rce(s) Supporting Document(s) lipase 96 U/L 73-393 Lipase [place] ([facility]) ID Date Data Source [id number] 03/10/2021 12:45:00 PM EDT [facility]) Name Value Range Interpretation Code Description Data Shari rce(s) Supporting Document(s) blood urea nitrogen 12 mg/dL 7-18 Blood Urea Nitro gen [place] ([facility]) glucose, fasting 174 mg/dL 70-100 Above high normal Glucose, Fas ting [place] ([facility]) creatinine for GFR 0.63 mg/dL 0.55-1.30 Creatinine for GF R [place] ([facility]) sodium level 141 mEq/L 136-145 Sodium Level [place] ([facility]) glomerular filtration rate > 60.0 >58 Glomerula r Filtration Rate [place] ([facility]) potassium serum 3.7 mEq/L 3.5-5.1 [facility] chloride level 108 mEq/L 98-107 Above high normal Chloride Level [place] ([facility]) carbon dioxide level 28 mEq/L 21-32 Carbon Dioxide Level [place] ([facility]) calcium level 9.5 mg/dL 8.5-10.1 Calcium Level [place] ( [facility]) anion gap 5 mEq/L 8-16 Below low normal Anion Gap [place] ( [facility]) ID Date Data Source [id number] 03/10/2021 12:45:00 PM EDT [facility]) Name Value Range Interpretation Code Description Data Shari rce(s) Supporting Document(s) AST/SGOT 117 U/L 7-37 Above high normal AST/SGOT [place] ([facility]) bilirubin,total 1.0 mg/dL 0.2-1.0 Bilirubin,total [place] ([facility]) ALT/SGPT 140 U/L 12-78 Above high normal ALT/SGPT [place] ([facility]) alkaline phosphatase 116 U/L 45-117 Alkaline Phosph atase [place] ([facility]) albumin 3.5 gm/dL 3.2-5.2 Albumin [place] ([facility]) bilirubin,direct 0.3 mg/dL 0.0-0.2 Above high normal Bilirubin,di rect [place] ([facility]) total protein 7.2 gm/dL 6.4-8.2 Total Protein [place] ( [facility]) albumin/globulin ratio 1.2-2.2 Below low normal Albumin /globulin Ratio [place] ([facility]) ID Date Data Source [id number] 03/10/2021 12:45:00 PM EDT [place] ([facility]) Name Value Range Interpretation Code Description Data Shari rce(s) Supporting Document(s) Hemoglobin A1c/Hemoglobin.total in Blood 9.4 % Hemoglobin a1C [place] ([facility]) estimated average glucose 223 mg/dL 60-110 Above high norm al Estimated Average Glucose [facility]) ID Date Data Source [id number] 03/10/2021 12:45:00 PM EDT [facility]) Name Value Range Interpretation Code Description Data Shari rce(s) Supporting Document(s) platelet estimate normal normal Platelet Estimate [facility]) ID Date Data Source [id number] 03/10/2021 12:45:00 PM EDT [facility]) Name Value Range Interpretation Code Description Data Shari rce(s) Supporting Document(s) neutrophils 59 % 28-66 Neutrophils [place] ([facility]) lymphocytes 27 % 16-44 Lymphocytes [place] ([facility]) monocytes 9 % 0-5 Above high normal Monocytes [place] ([facility]) atypical lymph 5 % 0-5 Atypical Lymph [place] ([facility]) ID Date Data Source [id number] 03/10/2021 12:45:00 PM EDT [facility]) Name Value Range Interpretation Code Description Data Shari rce(s) Supporting Document(s) red blood count 5.21 10 4.00-5.40 Red Blood Count AT[place] NA ([facility]) hemoglobin 15.1 g/dL 12.0-15.5 Hemoglobin [place] ([facility]) hematocrit 44.8 % 36.0-47.0 Hematocrit [place] ([facility]) white blood count 7.3 10 4.0-10.0 White Blood Count [place] ([facility]) mean corpuscular hemoglobin 29.0 pg 27.0-33.0 Mean Cor puscular Hemoglobin [place] ([facility]) red cell distribution width 12.5 % 11.5-14.5 Red Cell Distribution Width [place] ([facility]) mean corpuscular HGB conc 33.7 g/dL 32.0-36.5 Mean Corpu scular HGB Conc [place] ([facility]) mean corpuscular volume 86.0 fL 80.0-96.0 Mean Corpusc ular Volume [place] ([facility]) platelet count, automated 296 10 150-450 Platelet C ount, Automated [place] ([facility]) nucleated red blood cell % 0.0 % 0-0 Nucleated Red Blood Cell % [place] ([facility]) ID Date Data Source [id number] 03/10/2021 12:45:00 PM EDT [place] ([facility]) Name Value Range Interpretation Code Description Data Shari rce(s) Supporting Document(s) thyroid stimulating hormone 1.740 uIU/mL 0.358-3.740 Thyroid Stimulating Hormone [place] ([facility]) ID Date Data Source [id number] 03/10/2021 12:45:00 PM EDT [place] ([facility]) Name Value Range Interpretation Code Description Data Shari rce(s) Supporting Document(s) lipase 96 U/L 73-393 Lipase [place] ([facility]) ID Date Data Source [id number] 03/10/2021 12:45:00 PM EDT [place] ([facility]) Name Value Range Interpretation Code Description Data Shari rce(s) Supporting Document(s) glucose, fasting 174 mg/dL 70-100 Above high normal Glucose, Fas ting [place] ([facility]) blood urea nitrogen 12 mg/dL 7-18 Blood Urea Nitro gen [place] ([facility]) sodium level 141 mEq/L 136-145 Sodium Level [facility] [facility] creatinine for GFR 0.63 mg/dL 0.55-1.30 Creatinine for GF R [place] ([facility]) glomerular filtration rate > 60.0 >58 Glomerula r Filtration Rate [place] ([facility]) carbon dioxide level 28 mEq/L 21-32 Carbon Dioxide Level [place] ([facility]) potassium serum 3.7 mEq/L 3.5-5.1 Potassium Serum [place] NA ([facility]) chloride level 108 mEq/L 98-107 Above high normal Chloride Level [place] ([facility]) anion gap 5 mEq/L 8-16 Below low normal Anion Gap [place] ( [facility]) calcium level 9.5 mg/dL 8.5-10.1 Calcium Level [place] ( [facility]) ID Date Data Source [id number] 03/10/2021 12:45:00 PM EDT [place] ([facility]) Name Value Range Interpretation Code Description Data Shari rce(s) Supporting Document(s) AST/SGOT 117 U/L 7-37 Above high normal AST/SGOT [place] ([facility]) ALT/SGPT 140 U/L 12-78 Above high normal ALT/SGPT [place] ([facility]) alkaline phosphatase 116 U/L 45-117 Alkaline Phosph atase [place] ([facility]) total protein 7.2 gm/dL 6.4-8.2 Total Protein [place] ( [facility]) bilirubin,total 1.0 mg/dL 0.2-1.0 Bilirubin,total AT[place] NA ([facility]) bilirubin,direct 0.3 mg/dL 0.0-0.2 Above high normal Bilirubin,di rect [place] ([facility]) albumin/globulin ratio 1.2-2.2 Below low normal Albumin /globulin Ratio [place] ([facility]) albumin 3.5 gm/dL 3.2-5.2 Albumin [place] ([facility]) ID Date Data Source [id number] 03/10/2021 12:45:00 PM EDT [facility]) Name Value Range Interpretation Code Description Data Shari rce(s) Supporting Document(s) estimated average glucose 223 mg/dL 60-110 Above high norm al Estimated Average Glucose [place] ([facility]) Hemoglobin A1c/Hemoglobin.total in Blood 9.4 % Hemoglobin a1C [facility]) ID Date Data Source [id number] 03/10/2021 12:45:00 PM EDT [facility]) Name Value Range Interpretation Code Description Data Hsari rce(s) Supporting Document(s) platelet estimate normal normal Platelet Estimate [facility]) ID Date Data Source [id number] 03/10/2021 12:45:00 PM EDT [facility]) Name Value Range Interpretation Code Description Data Shari rce(s) Supporting Document(s) neutrophils 59 % 28-66 Neutrophils [place] ([facility]) lymphocytes 27 % 16-44 Lymphocytes [place] ([facility]) monocytes 9 % 0-5 Above high normal Monocytes [place] ([facility]) atypical lymph 5 % 0-5 Atypical Lymph [place] ([facility]) ID Date Data Source [id number] 03/10/2021 12:45:00 PM EDT [facility]) Name Value Range Interpretation Code Description Data Shari rce(s) Supporting Document(s) white blood count 7.3 10 4.0-10.0 White Blood Count [place] ([facility]) red blood count 5.21 10 4.00-5.40 Red Blood Count [place] NA ([facility]) mean corpuscular volume 86.0 fL 80.0-96.0 Mean Corpusc ular Volume [place] ([facility]) hematocrit 44.8 % 36.0-47.0 Hematocrit [place] ([facility]) mean corpuscular hemoglobin 29.0 pg 27.0-33.0 Mean Cor puscular Hemoglobin [place] ([facility]) hemoglobin 15.1 g/dL 12.0-15.5 Hemoglobin [place] ([facility]) mean corpuscular HGB conc 33.7 g/dL 32.0-36.5 Mean Corpu scular HGB Conc [place] ([facility]) platelet count, automated 296 10 150-450 Platelet C ount, Automated [place] ([facility]) red cell distribution width 12.5 % 11.5-14.5 Red Cell Distribution Width [place] ([facility]) nucleated red blood cell % 0.0 % 0-0 Nucleated Red Blood Cell % [place] ([facility]) ID Date Data Source [id number] 03/10/2021 12:45:00 PM EDT [facility]) Name Value Range Interpretation Code Description Data Shari rce(s) Supporting Document(s) thyroid stimulating hormone 1.740 uIU/mL 0.358-3.740 Thyroid Stimulating Hormone [place] ([facility]) ID Date Data Source [id number] 03/10/2021 12:45:00 PM EDT [facility]) Name Value Range Interpretation Code Description Data Shari rce(s) Supporting Document(s) lipase 96 U/L 73-393 Lipase [facility]) ID Date Data Source [id number] 03/10/2021 12:45:00 PM EDT [facility]) Name Value Range Interpretation Code Description Data Shari rce(s) Supporting Document(s) creatinine for GFR 0.63 mg/dL 0.55-1.30 Creatinine for GF R [place] ([facility]) blood urea nitrogen 12 mg/dL 7-18 Blood Urea Nitro gen [place] ([facility]) glucose, fasting 174 mg/dL 70-100 Above high normal Glucose, Fas ting [place] ([facility]) glomerular filtration rate > 60.0 >58 Glomerula r Filtration Rate [place] ([facility]) sodium level 141 mEq/L 136-145 Sodium Level [place] (No [facility]) chloride level 108 mEq/L 98-107 Above high normal Chloride Level [place] ([facility]) potassium serum 3.7 mEq/L 3.5-5.1 Potassium Serum [place] ([facility]) anion gap 5 mEq/L 8-16 Below low normal Anion Gap [place] ( [facility]) calcium level 9.5 mg/dL 8.5-10.1 Calcium Level [place] ( [facility]) carbon dioxide level 28 mEq/L 21-32 Carbon Dioxide Level [place] ([facility]) ID Date Data Source [id number] 03/10/2021 12:45:00 PM EDT [place] ([facility]) Name Value Range Interpretation Code Description Data Shari rce(s) Supporting Document(s) AST/SGOT 117 U/L 7-37 Above high normal AST/SGOT [place] ([facility]) alkaline phosphatase 116 U/L 45-117 Alkaline Phosph atase [place] ([facility]) bilirubin,total 1.0 mg/dL 0.2-1.0 Bilirubin,total [place] NA ([facility]) ALT/SGPT 140 U/L 12-78 Above high normal ALT/SGPT [place] ([facility]) bilirubin,direct 0.3 mg/dL 0.0-0.2 Above high normal Bilirubin,di rect [place] ([facility]) albumin 3.5 gm/dL 3.2-5.2 Albumin [place] ([facility]) albumin/globulin ratio 1.2-2.2 Below low normal Albumin /globulin Ratio [place] ([facility]) total protein 7.2 gm/dL 6.4-8.2 Total Protein [place] ( [facility]) ID Date Data Source [id number] 03/10/2021 12:45:00 PM EDT [place] ([facility]) Name Value Range Interpretation Code Description Data Shari rce(s) Supporting Document(s) Hemoglobin A1c/Hemoglobin.total in Blood 9.4 % Hemoglobin a1C [place] ([facility]) estimated average glucose 223 mg/dL 60-110 Above high norm al Estimated Average Glucose [place] ([facility]) ID Date Data Source [id number] 03/10/2021 12:45:00 PM EDT [place] ([facility]) Name Value Range Interpretation Code Description Data Shari rce(s) Supporting Document(s) platelet estimate normal normal Platelet Estimate [place] ([facility]) ID Date Data Source [id number] 03/10/2021 12:45:00 PM EDT [place] ([facility]) Name Value Range Interpretation Code Description Data Shari rce(s) Supporting Document(s) lymphocytes 27 % 16-44 Lymphocytes [place] ([facility]) neutrophils 59 % 28-66 Neutrophils [place] ([facility]) monocytes 9 % 0-5 Above high normal Monocytes [place] ([facility]) atypical lymph 5 % 0-5 Atypical Lymph [place] ([facility]) ID Date Data Source [id number] 03/10/2021 12:45:00 PM EDT [place] ([facility]) Name Value Range Interpretation Code Description Data Shari rce(s) Supporting Document(s) red blood count 5.21 10 4.00-5.40 Red Blood Count [place] ([facility]) white blood count 7.3 10 4.0-10.0 White Blood Count [place] ([facility]) mean corpuscular volume 86.0 fL 80.0-96.0 Mean Corpusc ular Volume [place] ([facility]) hemoglobin 15.1 g/dL 12.0-15.5 Hemoglobin [place] ([facility]) hematocrit 44.8 % 36.0-47.0 Hematocrit [place] ([facility]) mean corpuscular hemoglobin 29.0 pg 27.0-33.0 Mean Cor puscular Hemoglobin [place] ([facility]) red cell distribution width 12.5 % 11.5-14.5 Red Cell Distribution Width [place] ([facility]) mean corpuscular HGB conc 33.7 g/dL 32.0-36.5 Mean Corpu scular HGB Conc [place] ([facility]) platelet count, automated 296 10 150-450 Platelet C ount, Automated [place] ([facility]) nucleated red blood cell % 0.0 % 0-0 Nucleated Red Blood Cell % [place] ([facility]) ID Date Data Source [id number] 03/10/2021 12:45:00 PM EDT [facility]) Name Value Range Interpretation Code Description Data Shari rce(s) Supporting Document(s) thyroid stimulating hormone 1.740 uIU/mL 0.358-3.740 Thyroid Stimulating Hormone [place] ([facility]) ID Date Data Source [id number] 03/10/2021 12:45:00 PM EDT [facility]) Name Value Range Interpretation Code Description Data Shari rce(s) Supporting Document(s) lipase 96 U/L 73-393 Lipase [place] ([facility]) ID Date Data Source [id number] 03/10/2021 12:45:00 PM EDT [facility]) Name Value Range Interpretation Code Description Data Shari rce(s) Supporting Document(s) glucose, fasting 174 mg/dL 70-100 Above high normal Glucose, Fas ting [place] ([facility]) blood urea nitrogen 12 mg/dL 7-18 Blood Urea Nitro gen [place] ([facility]) glomerular filtration rate > 60.0 >58 Glomerula r Filtration Rate [place] ([facility]) sodium level 141 mEq/L 136-145 Sodium Level [place] (No [facility]) creatinine for GFR 0.63 mg/dL 0.55-1.30 Creatinine for GF R [place] ([facility]) carbon dioxide level 28 mEq/L 21-32 Carbon Dioxide Level [place] ([facility]) chloride level 108 mEq/L 98-107 Above high normal Chloride Level [place] ([facility]) potassium serum 3.7 mEq/L 3.5-5.1 Potassium Serum [place] NA ([facility]) calcium level 9.5 mg/dL 8.5-10.1 Calcium Level [place] ( [facility]) anion gap 5 mEq/L 8-16 Below low normal Anion Gap [place] ( [facility]) ID Date Data Source [id number] 03/10/2021 12:45:00 PM EDT [place] ([facility]) Name Value Range Interpretation Code Description Data Shari rce(s) Supporting Document(s) AST/SGOT 117 U/L 7-37 Above high normal AST/SGOT [place] ([facility]) ALT/SGPT 140 U/L 12-78 Above high normal ALT/SGPT [place] ([facility]) alkaline phosphatase 116 U/L 45-117 Alkaline Phosph atase [place] ([facility]) bilirubin,total 1.0 mg/dL 0.2-1.0 Bilirubin,total [place] NA ([facility]) total protein 7.2 gm/dL 6.4-8.2 Total Protein [place] ( [facility]) bilirubin,direct 0.3 mg/dL 0.0-0.2 Above high normal Bilirubin,di rect [place] ([facility]) albumin 3.5 gm/dL 3.2-5.2 Albumin [place] ([facility]) albumin/globulin ratio 1.2-2.2 Below low normal Albumin /globulin Ratio [place] ([facility]) ID Date Data Source [id number] 03/10/2021 12:45:00 PM EDT [place] ([facility]) Name Value Range Interpretation Code Description Data Shari rce(s) Supporting Document(s) Hemoglobin A1c/Hemoglobin.total in Blood 9.4 % Hemoglobin a1C [place] ([facility]) estimated average glucose 223 mg/dL 60-110 Above high norm al Estimated Average Glucose [place] ([facility]) ID Date Data Source [id number] 03/10/2021 12:45:00 PM EDT [place] ([facility]) Name Value Range Interpretation Code Description Data Shari rce(s) Supporting Document(s) platelet estimate normal normal Platelet Estimate [facility]) ID Date Data Source [id number] 03/10/2021 12:45:00 PM [facility] Name Value Range Interpretation Code Description Data Shari rce(s) Supporting Document(s) lymphocytes 27 % 16-44 Lymphocytes [place] ([facility]) monocytes 9 % 0-5 Above high normal Monocytes [place] ([facility]) neutrophils 59 % 28-66 Neutrophils [place] ([facility]) atypical lymph 5 % 0-5 Atypical Lymph [place] ([facility]) ID Date Data Source [id number] 03/10/2021 12:45:00 PM EDT [place] ([facility]) Name Value Range Interpretation Code Description Data Shari rce(s) Supporting Document(s) white blood count 7.3 10 4.0-10.0 White Blood Count [place] ([facility]) red blood count 5.21 10 4.00-5.40 Red Blood Count [place] ([facility]) hemoglobin 15.1 g/dL 12.0-15.5 Hemoglobin [place] ([facility]) mean corpuscular HGB conc 33.7 g/dL 32.0-36.5 Mean Corpu scular HGB Conc [place] ([facility]) mean corpuscular hemoglobin 29.0 pg 27.0-33.0 Mean Cor puscular Hemoglobin [place] ([facility]) hematocrit 44.8 % 36.0-47.0 Hematocrit [place] ([facility]) mean corpuscular volume 86.0 fL 80.0-96.0 Mean Corpusc ular Volume [place] ([facility]) platelet count, automated 296 10 150-450 Platelet C ount, Automated [place] ([facility]) nucleated red blood cell % 0.0 % 0-0 Nucleated Red Blood Cell % [place] ([facility]) red cell distribution width 12.5 % 11.5-14.5 Red Cell Distribution Width [place] ([facility]) ID Date Data Source [id number] 03/10/2021 12:45:00 PM EDT [facility]) Name Value Range Interpretation Code Description Data Shari rce(s) Supporting Document(s) thyroid stimulating hormone 1.740 uIU/mL 0.358-3.740 Thyroid Stimulating Hormone [place] ([facility]) ID Date Data Source [id number] 03/10/2021 12:45:00 PM EDT [facility]) Name Value Range Interpretation Code Description Data Shari rce(s) Supporting Document(s) lipase 96 U/L 73-393 Lipase [place] ([facility]) ID Date Data Source [id number] 03/10/2021 12:45:00 PM EDT [place] ([facility]) Name Value Range Interpretation Code Description Data Shari rce(s) Supporting Document(s) glucose, fasting 174 mg/dL 70-100 Above high normal Glucose, Fas ting [place] ([facility]) sodium level 141 mEq/L 136-145 Sodium Level [place] (No [facility]) glomerular filtration rate > 60.0 >58 Glomerula r Filtration Rate [place] ([facility]) creatinine for GFR 0.63 mg/dL 0.55-1.30 Creatinine for GF R [place] ([facility]) blood urea nitrogen 12 mg/dL 7-18 Blood Urea Nitro gen [place] ([facility]) chloride level 108 mEq/L 98-107 Above high normal Chloride Level [place] ([facility]) potassium serum 3.7 mEq/L 3.5-5.1 Potassium Serum [place] NA ([facility]) carbon dioxide level 28 mEq/L 21-32 Carbon Dioxide Level [place] ([facility]) anion gap 5 mEq/L 8-16 Below low normal Anion Gap [place] ( [facility]) calcium level 9.5 mg/dL 8.5-10.1 Calcium Level [place] ( [facility]) ID Date Data Source [id number] 03/10/2021 12:45:00 PM EDT [place] ([facility]) Name Value Range Interpretation Code Description Data Shari rce(s) Supporting Document(s) AST/SGOT 117 U/L 7-37 Above high normal AST/SGOT [place] ([facility]) ALT/SGPT 140 U/L 12-78 Above high normal ALT/SGPT [place] ([facility]) alkaline phosphatase 116 U/L 45-117 Alkaline Phosph atase [place] ([facility]) bilirubin,total 1.0 mg/dL 0.2-1.0 Bilirubin,total ATHE NA ([facility]) bilirubin,direct 0.3 mg/dL 0.0-0.2 Above high normal Bilirubin,di rect [place] ([facility]) total protein 7.2 gm/dL 6.4-8.2 Total Protein [place] ( [facility]) albumin/globulin ratio 1.2-2.2 Below low normal Albumin /globulin Ratio BRE[place] ([facility]) albumin 3.5 gm/dL 3.2-5.2 Albumin [place] ([facility]) ID Date Data Source [id number] 03/10/2021 12:45:00 PM EDT [facility]) Name Value Range Interpretation Code Description Data Shari rce(s) Supporting Document(s) estimated average glucose 223 mg/dL 60-110 Above high norm al Estimated Average Glucose [place] ([facility]) Hemoglobin A1c/Hemoglobin.total in Blood 9.4 % Hemoglobin a1C [facility]) ID Date Data Source [id number] 10/20/2020 01:45:00 PM EST [place] ([facility]) Name Value Range Interpretation Code Description Data Shari rce(s) Supporting Document(s) SARS-CoV-2 (COVID-19) RNA [Presence] in Respiratory specimen by ASHLEE with probe detection not detected not detected Sars Cov 2 RNA [facility]) ID Date Data Source [id number] 10/20/2020 01:45:00 PM EST [facility]) Name Value Range Interpretation Code Description Data Shari rce(s) Supporting Document(s) SARS-CoV-2 (COVID-19) RNA [Presence] in Respiratory specimen by ASHLEE with probe detection not detected not detected Sars Cov 2 RNA [facility]) ID Date Data Source [id number] 10/20/2020 01:45:00 PM EST [facility]) Name Value Range Interpretation Code Description Data Shari rce(s) Supporting Document(s) SARS-CoV-2 (COVID-19) RNA [Presence] in Respiratory specimen by ASHLEE with probe detection not detected not detected Sars Cov 2 RNA [facility]) ID Date Data Source [id number] 10/20/2020 01:45:00 PM EST [facility]) Name Value Range Interpretation Code Description Data Shari rce(s) Supporting Document(s) SARS-CoV-2 (COVID-19) RNA [Presence] in Respiratory specimen by ASHLEE with probe detection not detected not detected Sars Cov 2 RNA [facility]) ID Date Data Source [id number] 10/20/2020 01:45:00 PM EST [place] ([facility]) Name Value Range Interpretation Code Description Data Shari rce(s) Supporting Document(s) SARS-CoV-2 (COVID-19) RNA [Presence] in Respiratory specimen by ASHLEE with probe detection not detected not detected Sars Cov 2 RNA [place] ([facility]) ID Date Data Source [id number] 07/30/2020 08:45:00 AM EST [place] ([facility]) Name Value Range Interpretation Code Description Data Shari rce(s) Supporting Document(s) thyroid stimulating hormone 3.690 uIU/mL 0.358-3.740 Thyroid Stimulating Hormone [place] ([facility]) ID Date Data Source [id number] 07/30/2020 08:45:00 AM EST [place] ([facility]) Name Value Range Interpretation Code Description Data Shari rce(s) Supporting Document(s) triglycerides level 63 mg/dL <150 Triglycerides Le cheryl [place] ([facility]) HDL cholesterol 68 mg/dL >40 HDL Cholesterol ATHE ([facility]) non-HDL-C 88 mg/dL Non-hdl-c [place] ([facility]) cholesterol level 156 mg/dL <200 Cholesterol Level [place] ([facility]) Cholesterol in LDL [Mass/volume] in Serum or Plasma 75 mg/dL <1 00 LDL Cholesterol [place] ([facility]) cholesterol risk ratio <5 Cholesterol R isk Ratio [place] ([facility]) ID Date Data Source [id number] 07/30/2020 08:45:00 AM EST [facility]) Name Value Range Interpretation Code Description Data Shari rce(s) Supporting Document(s) creatinine for GFR 0.77 mg/dL 0.55-1.30 Creatinine for GF R [place] ([facility]) glucose, fasting 131 mg/dL 70-100 Above high normal Glucose, Fas ting [place] ([facility]) blood urea nitrogen 16 mg/dL 7-18 Blood Urea Nitro gen [place] ([facility]) sodium level 141 mEq/L 136-145 Sodium Level [place] (No [facility]) glomerular filtration rate > 60.0 >58 Glomerula r Filtration Rate [place] ([facility]) chloride level 105 mEq/L 98-107 Chloride Level [place] ([facility]) potassium serum 3.8 mEq/L 3.5-5.1 Potassium Serum ATHE NA ([facility]) AST/SGOT 12 U/L 7-37 AST/SGOT [place] ([facility]) ALT/SGPT 28 U/L 12-78 ALT/SGPT [place] ([facility]) carbon dioxide level 33 mEq/L 21-32 Above high normal Carbon D ioxide Level [place] ([facility]) calcium level 9.4 mg/dL 8.5-10.1 Calcium Level [place] ( [facility]) anion gap 3 mEq/L 8-16 Below low normal Anion Gap [place] ( [facility]) albumin 4.0 gm/dL 3.2-5.2 Albumin [place] ([facility]) alkaline phosphatase 112 U/L 45-117 Alkaline Phosph atase [place] ([facility]) total protein 7.6 gm/dL 6.4-8.2 Total Protein [place] ( [facility]) bilirubin,total 1.1 mg/dL 0.2-1.0 Above high normal Bilirubin,tot al [place] ([facility]) albumin/globulin ratio 1.2-2.2 Below low normal Albumin /globulin Ratio [place] ([facility]) ID Date Data Source [id number] 07/30/2020 08:45:00 AM EST [place] ([facility]) Name Value Range Interpretation Code Description Data Shari rce(s) Supporting Document(s) Hemoglobin A1c/Hemoglobin.total in Blood 6.6 % Hemoglobin a1C [place] ([facility]) estimated average glucose 143 mg/dL 60-110 Above high norm al Estimated [facility] ID Date Data Source [id number] 07/30/2020 08:45:00 AM EST [place] ([facility]) Name Value Range Interpretation Code Description Data Shari rce(s) Supporting Document(s) thyroid stimulating hormone 3.690 uIU/mL 0.358-3.740 Thyroid Stimulating Hormone [place] ([facility]) ID Date Data Source [id number] 07/30/2020 08:45:00 AM EST [place] ([facility]) Name Value Range Interpretation Code Description Data Shari rce(s) Supporting Document(s) triglycerides level 63 mg/dL <150 Triglycerides Le cheryl [place] ([facility]) cholesterol level 156 mg/dL <200 Cholesterol Level [place] ([facility]) HDL cholesterol 68 mg/dL >40 HDL Cholesterol AT[place] ([facility]) Cholesterol in LDL [Mass/volume] in Serum or Plasma 75 mg/dL <1 00 LDL Cholesterol [place] ([facility]) non-HDL-C 88 mg/dL Non-hdl-c [place] ([facility]) cholesterol risk ratio <5 Cholesterol R isk Ratio [place] ([facility]) ID Date Data Source [id number] 07/30/2020 08:45:00 AM EST [place] ([facility]) Name Value Range Interpretation Code Description Data Shari rce(s) Supporting Document(s) blood urea nitrogen 16 mg/dL 7-18 Blood Urea Nitro gen [place] ([facility]) glucose, fasting 131 mg/dL 70-100 Above high normal Glucose, Fas ting [place] ([facility]) sodium level 141 mEq/L 136-145 Sodium Level [place] (No [facility]) potassium serum 3.8 mEq/L 3.5-5.1 Potassium Serum ATHE NA ([facility]) creatinine for GFR 0.77 mg/dL 0.55-1.30 Creatinine for GF R [place] ([facility]) glomerular filtration rate > 60.0 >58 Glomerula r Filtration Rate [place] ([facility]) anion gap 3 mEq/L 8-16 Below low normal Anion Gap [place] ( [facility]) chloride level 105 mEq/L 98-107 Chloride Level [place] ([facility]) calcium level 9.4 mg/dL 8.5-10.1 Calcium Level [place] ( [facility]) carbon dioxide level 33 mEq/L 21-32 Above high normal Carbon D ioxide Level [place] ([facility]) alkaline phosphatase 112 U/L 45-117 Alkaline Phosph atase [place] ([facility]) AST/SGOT 12 U/L 7-37 AST/SGOT [place] ([facility]) bilirubin,total 1.1 mg/dL 0.2-1.0 Above high normal Bilirubin,tot al [place] ([facility]) ALT/SGPT 28 U/L 12-78 ALT/SGPT [place] ([facility]) albumin 4.0 gm/dL 3.2-5.2 Albumin [place] ([facility]) total protein 7.6 gm/dL 6.4-8.2 Total Protein [place] ( [facility]) albumin/globulin ratio 1.2-2.2 Below low normal Albumin /globulin Ratio [place] ([facility]) ID Date Data Source [id number] 07/30/2020 08:45:00 AM EST [place] ([facility]) Name Value Range Interpretation Code Description Data Shari rce(s) Supporting Document(s) Hemoglobin A1c/Hemoglobin.total in Blood 6.6 % Hemoglobin a1C [place] ([facility]) estimated average glucose 143 mg/dL 60-110 Above high norm al Estimated Average Glucose [place] ([facility]) ID Date Data Source [id number] 07/30/2020 08:45:00 AM EST [place] ([facility]) Name Value Range Interpretation Code Description Data Shari rce(s) Supporting Document(s) thyroid stimulating hormone 3.690 uIU/mL 0.358-3.740 Thyroid Stimulating Hormone [place] ([facility]) ID Date Data Source [id number] 07/30/2020 08:45:00 AM EST [place] ([facility]) Name Value Range Interpretation Code Description Data Shari rce(s) Supporting Document(s) triglycerides level 63 mg/dL <150 Triglycerides Le cheryl [place] ([facility]) cholesterol level 156 mg/dL <200 Cholesterol Level [place] ([facility]) HDL cholesterol 68 mg/dL >40 HDL Cholesterol ATHE NA ([facility]) non-HDL-C 88 mg/dL Non-hdl-c [place] ([facility]) cholesterol risk ratio <5 Cholesterol R isk Ratio [place] ([facility]) Cholesterol in LDL [Mass/volume] in Serum or Plasma 75 mg/dL <1 00 LDL Cholesterol [place] ([facility]) ID Date Data Source [id number] 07/30/2020 08:45:00 AM EST [place] ([facility]) Name Value Range Interpretation Code Description Data Shari rce(s) Supporting Document(s) glucose, fasting 131 mg/dL 70-100 Above high normal Glucose, Fas ting [place] ([facility]) glomerular filtration rate > 60.0 >58 Glomerula r Filtration Rate [place] ([facility]) sodium level 141 mEq/L 136-145 Sodium Level [place] (No [facility]) blood urea nitrogen 16 mg/dL 7-18 Blood Urea Nitro gen [place] ([facility]) creatinine for GFR 0.77 mg/dL 0.55-1.30 Creatinine for GF R [place] ([facility]) calcium level 9.4 mg/dL 8.5-10.1 Calcium Level [place] ( [facility]) potassium serum 3.8 mEq/L 3.5-5.1 Potassium Serum ATHE NA ([facility]) carbon dioxide level 33 mEq/L 21-32 Above high normal Carbon D ioxide Level [place] ([facility]) anion gap 3 mEq/L 8-16 Below low normal Anion Gap [place] ( [facility]) chloride level 105 mEq/L 98-107 Chloride Level [place] ([facility]) alkaline phosphatase 112 U/L 45-117 Alkaline Phosph atase [place] ([facility]) ALT/SGPT 28 U/L 12-78 ALT/SGPT [place] ([facility]) bilirubin,total 1.1 mg/dL 0.2-1.0 Above high normal Bilirubin,tot al [place] ([facility]) AST/SGOT 12 U/L 7-37 AST/SGOT [place] ([facility]) albumin/globulin ratio 1.2-2.2 Below low normal Albumin /globulin Ratio [place] ([facility]) albumin 4.0 gm/dL 3.2-5.2 Albumin [place] ([facility]) total protein 7.6 gm/dL 6.4-8.2 Total Protein [place] ( [facility]) ID Date Data Source [id number] 07/30/2020 08:45:00 AM EST [place] ([facility]) Name Value Range Interpretation Code Description Data Shari rce(s) Supporting Document(s) Hemoglobin A1c/Hemoglobin.total in Blood 6.6 % Hemoglobin a1C [place] ([facility]) estimated average glucose 143 mg/dL 60-110 Above high norm al Estimated Average Glucose [place] ([facility]) ID Date Data Source [id number] 07/30/2020 08:45:00 AM EST [place] ([facility]) Name Value Range Interpretation Code Description Data Shari rce(s) Supporting Document(s) thyroid stimulating hormone 3.690 uIU/mL 0.358-3.740 Thyroid Stimulating Hormone [place] ([facility]) ID Date Data Source [id number] 07/30/2020 08:45:00 AM EST [place] ([facility]) Name Value Range Interpretation Code Description Data Shari rce(s) Supporting Document(s) cholesterol level 156 mg/dL <200 Cholesterol Level [place] ([facility]) HDL cholesterol 68 mg/dL >40 HDL Cholesterol ATHE NA ([facility]) triglycerides level 63 mg/dL <150 Triglycerides Le cheryl [place] ([facility]) Cholesterol in LDL [Mass/volume] in Serum or Plasma 75 mg/dL <1 00 LDL Cholesterol [place] ([facility]) non-HDL-C 88 mg/dL Non-hdl-c [place] ([facility]) cholesterol risk ratio <5 Cholesterol R isk Ratio [place] ([facility]) ID Date Data Source [id number] 07/30/2020 08:45:00 AM EST [place] ([facility]) Name Value Range Interpretation Code Description Data Shari rce(s) Supporting Document(s) blood urea nitrogen 16 mg/dL 7-18 Blood Urea Nitro gen [place] ([facility]) glucose, fasting 131 mg/dL 70-100 Above high normal Glucose, Fas ting [place] ([facility]) creatinine for GFR 0.77 mg/dL 0.55-1.30 Creatinine for GF R [place] ([facility]) potassium serum 3.8 mEq/L 3.5-5.1 Potassium Serum ATHE NA ([facility]) sodium level 141 mEq/L 136-145 Sodium Level [place] (No [facility]) glomerular filtration rate > 60.0 >58 Glomerula r Filtration Rate [place] ([facility]) carbon dioxide level 33 mEq/L 21-32 Above high normal Carbon D ioxide Level [place] ([facility]) anion gap 3 mEq/L 8-16 Below low normal Anion Gap [place] ( [facility]) chloride level 105 mEq/L 98-107 Chloride Level [place] ([facility]) alkaline phosphatase 112 U/L 45-117 Alkaline Phosph atase [place] ([facility]) AST/SGOT 12 U/L 7-37 AST/SGOT [place] ([facility]) calcium level 9.4 mg/dL 8.5-10.1 Calcium Level [place] ( [facility]) ALT/SGPT 28 U/L 12-78 ALT/SGPT [place] ([facility]) bilirubin,total 1.1 mg/dL 0.2-1.0 Above high normal Bilirubin,tot al [place] ([facility]) total protein 7.6 gm/dL 6.4-8.2 Total Protein [place] ( [facility]) albumin/globulin ratio 1.2-2.2 Below low normal Albumin /globulin Ratio [place] ([facility]) albumin 4.0 gm/dL 3.2-5.2 Albumin [place] ([facility]) ID Date Data Source [id number] 07/30/2020 08:45:00 AM EST [place] ([facility]) Name Value Range Interpretation Code Description Data Shari rce(s) Supporting Document(s) estimated average glucose 143 mg/dL 60-110 Above high norm al Estimated Average Glucose [place] ([facility]) Hemoglobin A1c/Hemoglobin.total in Blood 6.6 % Hemoglobin a1C [place] ([facility]) ID Date Data Source [id number] 07/30/2020 08:45:00 AM EST [place] ([facility]) Name Value Range Interpretation Code Description Data Shari rce(s) Supporting Document(s) thyroid stimulating hormone 3.690 uIU/mL 0.358-3.740 Thyroid Stimulating Hormone [place] ([facility]) ID Date Data Source [id number] 07/30/2020 08:45:00 AM EST [place] ([facility]) Name Value Range Interpretation Code Description Data Shari rce(s) Supporting Document(s) cholesterol level 156 mg/dL <200 Cholesterol Level [place] ([facility]) HDL cholesterol 68 mg/dL >40 HDL Cholesterol ATHE NA ([facility]) triglycerides level 63 mg/dL <150 Triglycerides Le cheryl [place] ([facility]) non-HDL-C 88 mg/dL Non-hdl-c [place] ([facility]) cholesterol risk ratio <5 Cholesterol R isk Ratio [place] ([facility]) Cholesterol in LDL [Mass/volume] in Serum or Plasma 75 mg/dL <1 00 LDL Cholesterol [place] ([facility]) ID Date Data Source [id number] 07/30/2020 08:45:00 AM EST [place] ([facility]) Name Value Range Interpretation Code Description Data Shari rce(s) Supporting Document(s) glucose, fasting 131 mg/dL 70-100 Above high normal Glucose, Fas ting [place] ([facility]) creatinine for GFR 0.77 mg/dL 0.55-1.30 Creatinine for GF R [place] ([facility]) blood urea nitrogen 16 mg/dL 7-18 Blood Urea Nitro gen [place] ([facility]) glomerular filtration rate > 60.0 >58 Glomerula r Filtration Rate [place] ([facility]) potassium serum 3.8 mEq/L 3.5-5.1 Potassium Serum ATHE NA ([facility]) chloride level 105 mEq/L 98-107 Chloride Level [place] ([facility]) sodium level 141 mEq/L 136-145 Sodium Level [place] ([facility]) carbon dioxide level 33 mEq/L 21-32 Above high normal Carbon D ioxide Level [place] ([facility]) anion gap 3 mEq/L 8-16 Below low normal Anion Gap [place] ( [facility]) ALT/SGPT 28 U/L 12-78 ALT/SGPT [place] ([facility]) AST/SGOT 12 U/L 7-37 AST/SGOT [place] ([facility]) calcium level 9.4 mg/dL 8.5-10.1 Calcium Level [place] ( [facility]) alkaline phosphatase 112 U/L 45-117 Alkaline Phosph atase [place] ([facility]) bilirubin,total 1.1 mg/dL 0.2-1.0 Above high normal Bilirubin,tot al [place] ([facility]) albumin 4.0 gm/dL 3.2-5.2 Albumin [place] ([facility]) total protein 7.6 gm/dL 6.4-8.2 Total Protein [place] ( [facility]) albumin/globulin ratio 1.2-2.2 Below low normal Albumin /globulin Ratio [place] ([facility]) ID Date Data Source [id number] 07/30/2020 08:45:00 AM EST [place] ([facility]) Name Value Range Interpretation Code Description Data Shari rce(s) Supporting Document(s) Hemoglobin A1c/Hemoglobin.total in Blood 6.6 % Hemoglobin a1C [place] ([facility]) estimated average glucose 143 mg/dL 60-110 Above high norm al Estimated Average Glucose [place] ([facility]) ID Date Data Source [id number] 07/30/2020 08:45:00 AM EST [place] ([facility]) Name Value Range Interpretation Code Description Data Shari rce(s) Supporting Document(s) thyroid stimulating hormone 3.690 uIU/mL 0.358-3.740 Thyroid Stimulating Hormone [place] ([facility]) ID Date Data Source [id number] 07/30/2020 08:45:00 AM EST [place] ([facility]) Name Value Range Interpretation Code Description Data Shari rce(s) Supporting Document(s) triglycerides level 63 mg/dL <150 Triglycerides Le cheryl [place] ([facility]) cholesterol level 156 mg/dL <200 Cholesterol Level [place] ([facility]) Cholesterol in LDL [Mass/volume] in Serum or Plasma 75 mg/dL <1 00 LDL Cholesterol [place] ([facility]) non-HDL-C 88 mg/dL Non-hdl-c [place] ([facility]) HDL cholesterol 68 mg/dL >40 HDL Cholesterol ATHE NA ([facility]) cholesterol risk ratio <5 Cholesterol R isk Ratio [place] ([facility]) ID Date Data Source [id number] 07/30/2020 08:45:00 AM EST [place] ([facility]) Name Value Range Interpretation Code Description Data Shari rce(s) Supporting Document(s) blood urea nitrogen 16 mg/dL 7-18 Blood Urea Nitro gen [place] ([facility]) creatinine for GFR 0.77 mg/dL 0.55-1.30 Creatinine for GF R [place] ([facility]) glucose, fasting 131 mg/dL 70-100 Above high normal Glucose, Fas ting [place] ([facility]) glomerular filtration rate > 60.0 >58 Glomerula r Filtration Rate [place] ([facility]) sodium level 141 mEq/L 136-145 Sodium Level [place] (No [facility]) potassium serum 3.8 mEq/L 3.5-5.1 Potassium Serum ATHE NA ([facility]) chloride level 105 mEq/L 98-107 Chloride Level [place] ([facility]) carbon dioxide level 33 mEq/L 21-32 Above high normal Carbon D ioxide Level [place] ([facility]) calcium level 9.4 mg/dL 8.5-10.1 Calcium Level [place] ( [facility]) anion gap 3 mEq/L 8-16 Below low normal Anion Gap [place] ( [facility]) bilirubin,total 1.1 mg/dL 0.2-1.0 Above high normal Bilirubin,tot al [place] ([facility]) AST/SGOT 12 U/L 7-37 AST/SGOT [place] ([facility]) ALT/SGPT 28 U/L 12-78 ALT/SGPT [place] ([facility]) alkaline phosphatase 112 U/L 45-117 Alkaline Phosph atase [place] ([facility]) total protein 7.6 gm/dL 6.4-8.2 Total Protein [place] ( [facility]) albumin 4.0 gm/dL 3.2-5.2 Albumin [place] ([facility]) albumin/globulin ratio 1.2-2.2 Below low normal Albumin /globulin Ratio [place] ([facility]) ID Date Data Source [id number] 07/30/2020 08:45:00 AM EST [place] ([facility]) Name Value Range Interpretation Code Description Data Shari rce(s) Supporting Document(s) estimated average glucose 143 mg/dL 60-110 Above high norm al Estimated Average Glucose [place] ([facility]) Hemoglobin A1c/Hemoglobin.total in Blood 6.6 % Hemoglobin a1C [place] [facility]) ID Date Data Source [id number] 07/30/2020 08:45:00 AM EST [place] ([facility]) Name Value Range Interpretation Code Description Data Shari rce(s) Supporting Document(s) thyroid stimulating hormone 3.690 uIU/mL 0.358-3.740 Thyroid Stimulating Hormone BREONNA ([facility]) ID Date Data Source [id number] 07/30/2020 08:45:00 AM EST BREONNA ([facility]) Name Value Range Interpretation Code Description Data Shari rce(s) Supporting Document(s) triglycerides level 63 mg/dL <150 Triglycerides Le cheryl BREONNA ([facility]) cholesterol risk ratio <5 Cholesterol R isk Ratio BREONNA ([facility]) HDL cholesterol 68 mg/dL >40 HDL Cholesterol ATHE ([facility]) Cholesterol in LDL [Mass/volume] in Serum or Plasma 75 mg/dL <1 00 LDL Cholesterol BREONNA ([facility]) cholesterol level 156 mg/dL <200 Cholesterol Level BREONNA ([facility]) non-HDL-C 88 mg/dL Non-hdl-c BREONNA ([facility]) ID Date Data Source [id number] 07/30/2020 08:45:00 AM EST BREONNA ([facility]) Name Value Range Interpretation Code Description Data Shari rce(s) Supporting Document(s) glucose, fasting 131 mg/dL 70-100 Above high normal Glucose, Fas ting BREONNA ([facility]) blood urea nitrogen 16 mg/dL 7-18 Blood Urea Nitro gen BREONNA ([facility]) glomerular filtration rate > 60.0 >58 Glomerula r Filtration Rate BREONNA ([facility]) sodium level 141 mEq/L 136-145 Sodium Level BREONNA (No [facility]) creatinine for GFR 0.77 mg/dL 0.55-1.30 Creatinine for GF R BREONNA ([facility]) potassium serum 3.8 mEq/L 3.5-5.1 Potassium Serum ATHE NA ([facility]) carbon dioxide level 33 mEq/L 21-32 Above high normal Carbon D ioxide Level BREONNA ([facility]) anion gap 3 mEq/L 8-16 Below low normal Anion Gap BREONNA ( [facility]) chloride level 105 mEq/L 98-107 Chloride Level BREONNA ([facility]) AST/SGOT 12 U/L 7-37 AST/SGOT BREONNA ([facility]) alkaline phosphatase 112 U/L 45-117 Alkaline Phosph atase BREONNA ([facility]) calcium level 9.4 mg/dL 8.5-10.1 Calcium Level [place] ( [facility]) ALT/SGPT 28 U/L 12-78 ALT/SGPT [place] ([facility]) bilirubin,total 1.1 mg/dL 0.2-1.0 Above high normal Bilirubin,tot al BREONNA ([facility]) total protein 7.6 gm/dL 6.4-8.2 Total Protein BREONNA ( [facility]) albumin 4.0 gm/dL 3.2-5.2 Albumin [place] ([facility]) albumin/globulin ratio 1.2-2.2 Below low normal Albumin /globulin Ratio [place] ([facility]) ID Date Data Source [id number] 07/30/2020 08:45:00 AM EST BREONNA ([facility]) Name Value Range Interpretation Code Description Data Shari rce(s) Supporting Document(s) Hemoglobin A1c/Hemoglobin.total in Blood 6.6 % Hemoglobin a1C BREONNA ([facility]) estimated average glucose 143 mg/dL 60-110 Above high norm al Estimated Average Glucose [place] ([facility]) ID Date Data Source [id number] 06/01/2020 08:43:34 AM EDT [facility] Measurements & CalculationsHeight: 67 inches (5 ft. [...] Have you seen a dentist? Yes - JoaquinueIntake performed by: Nanci Yang LPN, June 01, [...] during this visit, including review of any zajh-vpl-kovmqso medications, herbal therapies, and/or supplements.Allergy ReviewAllergy List [...] is? GoodAssessment & Plan Problems:Added: Intertrigo (ICD-695.89) (TWT05-G94.4) Assessment: Instructions: We have sent a prescription to your pharmacy today. Please use as prescribed. Please shower / bathe twice with mild unsented soap prior to applying medication. Please monitor for changes. if symptoms worsen, please return to clinic or the ER.Assessment not Saved Intertrigo (JFX43-P89.4): Comment OnlyExtensive abdominal skin folds and bilat [...] developed in collaboration with patient and/or familyMedications:NYSTATIN 587255 UNIT/GM EXTERNAL POWDERNYSTATIN 238100 UNIT/GM EXTERNAL OINTMENTZYRTEC ALLERGY 10 MG ORAL [...] 5/16" 0.5 MLADMELOG 100 UNIT/ML SUBCUTANEOUS SOLUTIONNYSTATIN 043855 UNIT/GM EXTERNAL OINTMENTMELOXICAM 15 MG ORAL TABLETKLONOPIN [...] TABLET EXTENDED RELEASE 24 HOURMedication Changes:New Prescription:NYSTATIN [id number] UNIT/GM EXTERNAL OINTMENT-apply to affected areas twice daily as needed. abdominal skin folds and bilat groin. Qty: 3[Tube] Refills: 2 Method: ElectronicNYSTATIN 204956 UNIT/GM EXTERNAL POWDER-apply to affected areas twice daily as needed. abdominal skin folds and bilat groin Qty: 2[Container] Refills: 2 Method: ElectronicAllergies:SULFA (Critical)* IMMODIUM (Critical)* JANUVIA AND METFORMIN (Critical)CLINDAMYCIN HCL (CLINDAMYCIN HCL CAPS) (Critical)* LISINOPRIL (Mild)Orders:Adult - Ofc Vst, EST, Level III [CPT- 55318] Follow-Up Return to clinic: as scheduled and as needed Clinical Visit Summary CompletedMedications:NYSTATIN 838953 UNIT/GM EXTERNAL POWDER (NYSTATIN) apply to affected areas twice daily as needed. abdominal skin folds and bilat groin #2[Container] x 2 Route:EXTERNAL Entered and Authorized by: Bridgette RAMIREZ Method used: Electronically to [facility]* (retail) [address] [place] [address] Note to Pharmacy: Route: EXTERNAL; Indications: INTERTRIGO RxID: [id number] 10 0000 UNIT/GM EXTERNAL OINTMENT (NYSTATIN) apply to affected areas twice daily as needed. abdominal skin folds and bilat groin. #3[Tube] x 2 Route:EXTERNAL Entered and Authorized by: Bridgette RAMIREZ Method used: Electronically to [facility]* (retail) [address] [place] [address] Note to Pharmacy: Route: EXTERNAL; Indications: INTERTRIGO RxID: [id number] signed by Bridgette RAMIREZ on 06/01/2020 at 9:52 AM Name Value Range Interpretation Code Description Data Shari rce(s) Supporting Document(s) ID Date Data Source [id number] 05/19/2020 08:30:30 AM EDT [facility] Name Value Range Interpretation Code Description Data Shari rce(s) Supporting Document(s) HGBA1C 6.4 % [facility] Procedure Social History Code Duration Value Status Description Data Source(s ) Smoking 07/04/2021 12:00:00 AM EDT Never Smoked Cigarettes com pleted Never Smoked Cigarettes MEDENT ([facility]) Smoking 03/07/2021 12:00:00 AM EDT Never Smoker completed Never S moker eCW1 ([facility]) Smoking 03/07/2021 12:00:00 AM EDT Never Smoker completed Never S moker eCW1 ([facility]) Smoking 03/07/2021 12:00:00 AM EDT Never Smoker completed Never S moker eCW1 ([facility]) Smoking 11/10/2020 12:00:00 AM EST Never Smoker completed Never S moker eCW1 ([facility]) Smoking 11/10/2020 12:00:00 AM EST Never Smoker completed Never S moker eCW1 ([facility]) Smoking 11/10/2020 12:00:00 AM EST Never Smoker completed Never S moker eCW1 ([facility]) Smoking 08/11/2020 12:00:00 AM EST Patient has never smoked co mpleted Patient has never smoked MEDENT ([facility], ) Vital Signs ID Date Data Source UNK Name Value Range Interpretation Code Description Data Source(s) Systolic blood pressure 126 mm[Hg] 126 mm[Hg] M EDENT ([facility] ) Diastolic blood pressure 82 mm[Hg] 82 mm[Hg] MEDENT ([facility]) Body weight 292.00 [lb_av] 292.00 [lb_av] MEDEN T ([facility]) Body mass index (BMI) [Ratio] 47.1 kg/m2 47.1 k g/m2 MEDENT ([facility]) Oxygen saturation in Arterial blood by Pulse oximetry 95 % 95 % MEDENT ([facility]) Heart rate 88 /min 88 /min MEDENT ([facility]) Body height 66 [in_i] 66 [in_i] MEDENT ([facility]) 5'6" Diastolic blood pressure 83 mm[Hg] 83 mm[Hg] BREONNA ([facility]) Body height 67 [in_i] 67 [in_i] BREONNA ([facility]) Body mass index (BMI) [Ratio] 46.4 kg/m2 46.4 k g/m2 BREONNA ([facility]) Systolic blood pressure 130 mm[Hg] 130 mm[Hg] [facility] ([facility]) Body weight 4740 [oz_av] 4740 [oz_av] BREONNA ([facility]) Diastolic blood pressure 82 mm[Hg] 82 mm[Hg] BREONNA ([facility]) Body height 67 [in_i] 67 [in_i] BREONNA ([facility]) Body mass index (BMI) [Ratio] 46.4 kg/m2 46.4 k g/m2 BREONNA ([facility]) Systolic blood pressure 125 mm[Hg] 125 mm[Hg] [facility] ([facility]) Body weight 4736 [oz_av] 4736 [oz_av] BREONNA ([facility]) Diastolic blood pressure 82 mm[Hg] 82 mm[Hg] BREONNA ([facility]) Body height 67 [in_i] 67 [in_i] BREONNA ([facility]) Body mass index (BMI) [Ratio] 46.4 kg/m2 46.4 k g/m2 BREONNA ([facility]) Systolic blood pressure 125 mm[Hg] 125 mm[Hg] [facility] ([facility]) Body weight 4736 [oz_av] 4736 [oz_av] BREONNA ([facility]) Body weight 4774 [oz_av] 4774 [oz_av] BREONNA ([facility]) Diastolic blood pressure 86 mm[Hg] 86 mm[Hg] BREONNA ([facility]) Body height 67 [in_i] 67 [in_i] BREONNA ([facility]) Body mass index (BMI) [Ratio] 46.7 kg/m2 46.7 k g/m2 BREONNA ([facility]) Systolic blood pressure 130 mm[Hg] 130 mm[Hg] [facility] ([facility]) Diastolic blood pressure 86 mm[Hg] 86 mm[Hg] BREONNA ([facility]) Body height 67 [in_i] 67 [in_i] BREONNA ([facility]) Body mass index (BMI) [Ratio] 46.7 kg/m2 46.7 k g/m2 BREONNA ([facility]) Systolic blood pressure 130 mm[Hg] 130 mm[Hg] [facility] ([facility]) Body weight 4774 [oz_av] 4774 [oz_av] BREONNA ([facility]) Body weight 4774 [oz_av] 4774 [oz_av] BREONNA ([facility]) Diastolic blood pressure 86 mm[Hg] 86 mm[Hg] BREONNA ([facility]) Body height 67 [in_i] 67 [in_i] BREONNA ([facility]) Body mass index (BMI) [Ratio] 46.7 kg/m2 46.7 k g/m2 BREONNA ([facility]) Systolic blood pressure 130 mm[Hg] 130 mm[Hg] [facility] ([facility]) Diastolic blood pressure 86 mm[Hg] 86 mm[Hg] BREONNA ([facility]) Body height 67 [in_i] 67 [in_i] BREONNA ([facility]) Body mass index (BMI) [Ratio] 46.7 kg/m2 46.7 k g/m2 BREONNA ([facility]) Systolic blood pressure 130 mm[Hg] 130 mm[Hg] [facility] ([facility]) Body weight 4774 [oz_av] 4774 [oz_av] BREONNA ([facility]) Diastolic blood pressure 77 mm[Hg] 77 mm[Hg] BREONNA ([facility]) Body height 67 [in_i] 67 [in_i] BREONNA ([facility]) Body mass index (BMI) [Ratio] 46 kg/m2 46 kg/ m2 BREONNA ([facility]) Systolic blood pressure 118 mm[Hg] 118 mm[Hg] [facility] ([facility]) Body weight 4696 [oz_av] 4696 [oz_av] BREONNA ([facility]) Diastolic blood pressure 77 mm[Hg] 77 mm[Hg] BREONNA ([facility]) Body height 67 [in_i] 67 [in_i] BREONNA ([facility]) Body mass index (BMI) [Ratio] 46 kg/m2 46 kg/ m2 BREONNA ([facility]) Systolic blood pressure 118 mm[Hg] 118 mm[Hg] [facility] ([facility]) Body weight 4696 [oz_av] 4696 [oz_av] BREONNA ([facility]) Diastolic blood pressure 77 mm[Hg] 77 mm[Hg] BREONNA ([facility]) Body height 67 [in_i] 67 [in_i] BREONNA ([facility]) Body mass index (BMI) [Ratio] 46 kg/m2 46 kg/ m2 BREONNA ([facility]) Systolic blood pressure 118 mm[Hg] 118 mm[Hg] [facility] ([facility]) Body weight 4696 [oz_av] 4696 [oz_av] BREONNA ([facility]) Diastolic blood pressure 77 mm[Hg] 77 mm[Hg] BREONNA ([facility]) Body height 67 [in_i] 67 [in_i] BREONNA ([facility]) Body mass index (BMI) [Ratio] 46 kg/m2 46 kg/ m2 BREONNA ([facility]) Systolic blood pressure 118 mm[Hg] 118 mm[Hg] A THEN ([facility]) Body weight 4696 [oz_av] 4696 [oz_av] BREONNA ([facility]) Diastolic blood pressure 77 mm[Hg] 77 mm[Hg] BREONNA ([facility]) Body height 67 [in_i] 67 [in_i] BREONNA ([facility]) Body mass index (BMI) [Ratio] 46 kg/m2 46 kg/ m2 BREONNA ([facility]) Systolic blood pressure 118 mm[Hg] 118 mm[Hg] A THENA ([facility]) Body weight 4696 [oz_av] 4696 [oz_av] BREONNA ([facility]) Body weight 287.8 [lb_av] 287.8 [lb_av] eCW1 ([facility]) Body height 65 [in_i] 65 [in_i] eCW1 ([facility]) Body mass index (BMI) [Ratio] 47.89 kg/m2 47.89 kg/m2 eCW1 ([facility]) Systolic blood pressure 138 mm[Hg] 138 mm[Hg] e CW1 ([facility]) Diastolic blood pressure 88 mm[Hg] 88 mm[Hg] eCW1 ([facility]) Body weight 286 [lb_av] 286 [lb_av] eCW1 ([facility]) Body weight 129.73 kg 129.73 kg eCW1 ([facility]) Body height 65 [in_i] 65 [in_i] eCW1 ([facility]) Body mass index (BMI) [Ratio] 47.59 kg/m2 47.59 kg/m2 eCW1 ([facility]) Systolic blood pressure 119 mm[Hg] 119 mm[Hg] e CW1 ([facility]) Diastolic blood pressure 81 mm[Hg] 81 mm[Hg] eCW1 ([facility]) Diastolic blood pressure 78 mm[Hg] 78 mm[Hg] BREONNA ([facility]) Body weight 4672 [oz_av] 4672 [oz_av] BREONNA ([facility]) Body mass index (BMI) [Ratio] 45.7 kg/m2 45.7 k g/m2 BREONNA ([facility]) Systolic blood pressure 119 mm[Hg] 119 mm[Hg] [facility] ([facility]) Body height 67 [in_i] 67 [in_i] BREONNA ([facility]) Body height 67 [in_i] 67 [in_i] BREONNA ([facility]) Body mass index (BMI) [Ratio] 45.7 kg/m2 45.7 k g/m2 BREONNA ([facility]) Systolic blood pressure 119 mm[Hg] 119 mm[Hg] [facility] ([facility]) Body weight 4672 [oz_av] 4672 [oz_av] BREONNA ([facility]) Diastolic blood pressure 78 mm[Hg] 78 mm[Hg] BREONNA ([facility]) Diastolic blood pressure 78 mm[Hg] 78 mm[Hg] BREONNA ([facility]) Body height 67 [in_i] 67 [in_i] BREONNA ([facility]) Body mass index (BMI) [Ratio] 45.7 kg/m2 45.7 k g/m2 BREONNA ([facility]) Systolic blood pressure 119 mm[Hg] 119 mm[Hg] [facility] ([facility]) Body weight 4672 [oz_av] 4672 [oz_av] BREONNA ([facility]) Diastolic blood pressure 78 mm[Hg] 78 mm[Hg] BREONNA ([facility]) Body height 67 [in_i] 67 [in_i] BREONNA ([facility]) Body mass index (BMI) [Ratio] 45.7 kg/m2 45.7 k g/m2 BREONNA ([facility]) Systolic blood pressure 119 mm[Hg] 119 mm[Hg] [facility] ([facility]) Body weight 4672 [oz_av] 4672 [oz_av] BREONNA ([facility]) Diastolic blood pressure 78 mm[Hg] 78 mm[Hg] BREONNA ([facility]) Body height 67 [in_i] 67 [in_i] BREONNA ([facility]) Body mass index (BMI) [Ratio] 45.7 kg/m2 45.7 k g/m2 BREONNA ([facility]) Systolic blood pressure 119 mm[Hg] 119 mm[Hg] A THENA ([facility]) Body weight 4672 [oz_av] 4672 [oz_av] BREONNA ([facility]) Diastolic blood pressure 78 mm[Hg] 78 mm[Hg] BREONNA ([facility]) Body height 67 [in_i] 67 [in_i] BREONNA ([facility]) Body mass index (BMI) [Ratio] 45.7 kg/m2 45.7 k g/m2 BREONNA ([facility]) Systolic blood pressure 119 mm[Hg] 119 mm[Hg] A THENA ([facility]) Body weight 4672 [oz_av] 4672 [oz_av] BREONNA ([facility]) Systolic blood pressure 140 mm[Hg] 140 mm[Hg] M EDJUAN A ([facility], ) Diastolic blood pressure 76 mm[Hg] 76 mm[Hg] [facility] Heart rate 85 /min 85 /min [facility] ([facility], ) Oxygen saturation in Arterial blood by Pulse oximetry 94 % 94 % [facility] ([facility], ) Body temperature 97.5 [degF] 97.5 [degF] [facility] ([facility], ) Body height 67 [in_i] 67 [in_i] [facility], [facility] 5'7" Body weight 296.25 [lb_av] 296.25 [lb_av] MEDEN T ([facility], ) Body mass index (BMI) [Ratio] 46.4 kg/m2 46.4 k g/m2 [facility] ([facility], ) [place] body weight 135 [lb_av] 135 [lb_av] MEDEN T ([facility], ) Body weight 134.379 kg 134.379 kg [facility] ([facility], ) Body surface area Derived from formula 2.39 m2 2.39 m2 [facility] ([facility], ) Diastolic blood pressure 77 mm[Hg] 77 mm[Hg] BREONNA ([facility]) Body height 67 [in_i] 67 [in_i] BREONNA ([facility]) Body mass index (BMI) [Ratio] 45.98 kg/m2 45.98 kg/m2 BREONNA ([facility]) Systolic blood pressure 112 mm[Hg] 112 mm[Hg] A THENA ([facility]) Body weight 4680 [oz_av] 4680 [oz_av] BREONNA ([facility]) Diastolic blood pressure 77 mm[Hg] 77 mm[Hg] BRENONA ([facility]) Body height 67 [in_i] 67 [in_i] BREONNA ([facility]) Body mass index (BMI) [Ratio] 45.98 kg/m2 45.98 kg/m2 BREONNA ([facility]) Systolic blood pressure 112 mm[Hg] 112 mm[Hg] A THENA ([facility]) Body weight 4680 [oz_av] 4680 [oz_av] BREONNA ([facility]) Diastolic blood pressure 77 mm[Hg] 77 mm[Hg] BREONNA ([facility]) Body height 67 [in_i] 67 [in_i] BREONNA ([facility]) Body mass index (BMI) [Ratio] 45.98 kg/m2 45.98 kg/m2 BREONNA ([facility]) Systolic blood pressure 112 mm[Hg] 112 mm[Hg] A THENA ([facility]) Body weight 4680 [oz_av] 4680 [oz_av] BREONNA ([facility]) Diastolic blood pressure 77 mm[Hg] 77 mm[Hg] BREONNA ([facility]) Body height 67 [in_i] 67 [in_i] BREONNA ([facility]) Body mass index (BMI) [Ratio] 45.98 kg/m2 45.98 kg/m2 BREONNA ([facility]) Systolic blood pressure 112 mm[Hg] 112 mm[Hg] A THENA ([facility]) Body weight 4680 [oz_av] 4680 [oz_av] BREONNA ([facility]) Body height 67 [in_i] 67 [in_i] BREONNA ([facility]) Body mass index (BMI) [Ratio] 45.98 kg/m2 45.98 kg/m2 BREONNA ([facility]) Systolic blood pressure 112 mm[Hg] 112 mm[Hg] [facility] ([facility]) Body weight 4680 [oz_av] 4680 [oz_av] BREONNA ([facility]) Diastolic blood pressure 77 mm[Hg] 77 mm[Hg] BREONNA ([facility]) Diastolic blood pressure 77 mm[Hg] 77 mm[Hg] BREONNA ([facility]) Body height 67 [in_i] 67 [in_i] BREONNA ([facility]) Body mass index (BMI) [Ratio] 45.98 kg/m2 45.98 kg/m2 BREONNA ([facility]) Systolic blood pressure 112 mm[Hg] 112 mm[Hg] [facility] ([facility]) Body weight 4680 [oz_av] 4680 [oz_av] BREONNA ([facility]) Patient Treatment Plan of Care Planned Activity Planned Date Details Description Data Source (s) Fluconazole 150 MG Oral Tablet [Diflucan] 03/07/2021 12:00:00 AM ED T eCW1 ([facility]) Fluconazole 150 MG Oral Tablet [Diflucan] 03/07/2021 12:00:00 AM ED T eCW1 ([facility]) Nystatin 298929 UNT/ML Topical Cream 03/07/2021 12:00:00 AM EDT eCW1 ([facility]) Fluconazole 150 MG Oral Tablet [Diflucan] 03/07/2021 12:00:00 AM ED T eCW1 ([facility]) Nystatin 767620 UNT/ML Topical Cream 11/10/2020 12:00:00 AM EST eCW1 ([facility]) Fluconazole 150 MG Oral Tablet 11/10/2020 12:00:00 AM EST eCW1 ([facility]) Nystatin 949462 UNT/ML Topical Cream 11/10/2020 12:00:00 AM EST eCW1 ([facility]) Fluconazole 150 MG Oral Tablet 11/10/2020 12:00:00 AM EST eCW1 ([facility]) Fluconazole 150 MG Oral Tablet 11/10/2020 12:00:00 AM EST eCW1 ([facility]) Nystatin 875443 UNT/ML Topical Cream 11/10/2020 12:00:00 AM EST eCW1 ([facility]) Amoxicillin 875 MG / Clavulanate 125 MG Oral Tablet BREONNA ([facility]) Amoxicillin 875 MG Oral Tablet BREONNA ([facility]) vitamin d3 50 mcg (1999 ut) tabs BREONNA ([facility]) 24 HR venlafaxine 37.5 MG Extended Release Oral Capsule BREONNA ([facility]) 24 HR venlafaxine 150 MG Extended Release Oral Capsule BREONNA ([facility]) Bacitracin 0.4 UNT/MG / Neomycin 0.0035 MG/MG / Polymyxin B 5 UNT/MG Topical Ointment BREONNA ([facility]) Ranitidine 150 MG Oral Tablet BREONNA ([facility]) Phenazopyridine hydrochloride 200 MG Oral Tablet BREONNA ([facility]) Ondansetron 4 MG Oral Tablet BREONNA ([facility]) Nystatin 752931 UNT/ML Topical Cream BREONNA ([facility]) Hydrocortisone 10 MG/ML / Neomycin 3.5 M G/ML / Polymyxin B 46984 UNT/ML Otic Solution BREONNA ([facility]) Naproxen 500 MG Oral Tablet BREONNA ([facility]) montelukast 10 MG Oral Tablet BREONNA ([facility]) 24 HR metoprolol succinate 50 MG Extended Release Oral Tablet BREONNA ([facility]) Meclizine Hydrochloride 25 MG Oral Tablet BREONNA ([facility]) Hydroxyzine Hydrochloride 50 MG Oral Tablet BREONNA ([facility]) Hydroxyzine Hydrochloride 25 MG Oral Tablet BREONNA ([facility]) Hydrochlorothiazide 25 MG Oral Tablet BREONNA ([facility]) Cyclobenzaprine hydrochloride 10 MG Oral Tablet BREONNA ([facility]) Citalopram 40 MG Oral Tablet BREONNA ([facility]) cefdinir 300 MG Oral Capsule BREONNA ([facility]) Azithromycin 250 MG Oral Tablet BREONNA ([facility]) Austedo 9 mg tablet BREONNA ( [facility]) Austedo 6 mg tablet BREONNA ( [facility]) Austedo 12 mg tablet BREONNA ([facility]) atorvastatin 10 MG Oral Tablet [facility] [facility] aripiprazole 20 MG Oral Tablet BREONNA ([facility] aripiprazole 15 MG Oral Tablet [facility] ([facility]) Amoxicillin 875 MG / Clavulanate 125 MG Oral Tablet [facility] ([facility]) Amoxicillin 875 MG Oral Tablet [facility] ([facility]) vitamin d3 50 mcg (2000 ut) tabs BREONNA ([facility]) 24 HR venlafaxine 37.5 MG Extended Release Oral Capsule BREONNA ([facility]) 24 HR venlafaxine 150 MG Extended Release Oral Capsule [facility] ([facility]) Bacitracin 0.4 UNT/MG / Neomycin 0.0035 MG/MG / Polymyxin B 5 UNT/MG Topical Ointment BREONNA ([facility]) Ranitidine 150 MG Oral Tablet BRE[facility] ([facility]) Phenazopyridine hydrochloride 200 MG Oral Tablet [facility] ([facility]) Ondansetron 4 MG Oral Tablet [facility] ([facility]) Nystatin 804794 UNT/ML Topical Cream BREONNA ([facility]) Hydrocortisone 10 MG/ML / Neomycin 3.5 M G/ML / Polymyxin B 87294 UNT/ML Otic Solution BRE[facility]NA ([facility]) Naproxen 500 MG Oral Tablet [facility] ([facility]) montelukast 10 MG Oral Tablet BRE[facility] ([facility]) 24 HR metoprolol succinate 50 MG Extended Release Oral Tablet [facility] ([facility]) Meclizine Hydrochloride 25 MG Oral Tablet [facility] ([facility]) Hydroxyzine Hydrochloride 50 MG Oral Tablet BRE[facility] ([facility]) Hydroxyzine Hydrochloride 25 MG Oral Tablet [facility] ([facility]) Hydrochlorothiazide 25 MG Oral Tablet [facility] ([facility]) Cyclobenzaprine hydrochloride 10 MG Oral Tablet [facility] ([facility]) Citalopram 40 MG Oral Tablet [facility] ([facility]) Cephalexin 500 MG Oral Capsule [facility] ([facility]) cefdinir 300 MG Oral Capsule [facility] ([facility]) Azithromycin 250 MG Oral Tablet BRE[facility] ([facility]) Austedo 9 mg tablet BREONNA ( [facility] [facility]) Austedo 6 mg tablet BREONNA ( [facility] [facility]) Austedo 12 mg tablet BREONNA ([facility]) atorvastatin 10 MG Oral Tablet [facility] ([facility]) aripiprazole 20 MG Oral Tablet [facility] ([facility] [facility]) aripiprazole 15 MG Oral Tablet [facility] ([facility]) 24 HR venlafaxine 37.5 MG Extended Release Oral Capsule [facility] ([facility] [facility]) Bacitracin 0.4 UNT/MG / Neomycin 0.0035 MG/MG / Polymyxin B 5 UNT/MG Topical Ointment BREONNA ([facility]) Ranitidine 150 MG Oral Tablet BER[facility] ([facility] [facility]) Ondansetron 4 MG Oral Tablet [facility] ([facility] [facility]) Nystatin 122126 UNT/ML Topical Cream BREONNA ([facility] [facility]) Hydrocortisone 10 MG/ML / Neomycin 3.5 M G/ML / Polymyxin B 95834 UNT/ML Otic Solution BREONNA ([facility]) montelukast 10 MG Oral Tablet [facility] ([facility] [facility] Meclizine Hydrochloride 25 MG Oral Tablet [facility] ([facility] [facility]) Hydroxyzine Hydrochloride 50 MG Oral Tablet [facility] ([facility] [facility]) Hydroxyzine Hydrochloride 25 MG Oral Tablet [facility] ([facility] [facility]) Fluconazole 150 MG Oral Tablet [facility] ([facility]) Citalopram 20 MG Oral Tablet [facility] ([facility]) Cephalexin 500 MG Oral Capsule [facility] ([facility] [facility]) cefdinir 300 MG Oral Capsule [facility] ([facility]) Azithromycin 250 MG Oral Tablet [facility] ([facility] [facility]) Austedo 9 mg tablet BREONNA ( [facility] [facility]) Austedo 6 mg tablet BREONNA ( [facility]) Austedo 12 mg tablet BREONNA ([facility] [facility] atorvastatin 10 MG Oral Tablet [facility] ([facility] [facility]) aripiprazole 20 MG Oral Tablet [facility] ([facility] [facility]) aripiprazole 15 MG Oral Tablet [facility] ([facility] [facility]) Amoxicillin 875 MG / Clavulanate 125 MG Oral Tablet [facility] ([facility]) Amoxicillin 875 MG Oral Tablet [facility] ([facility] [facility]) Amoxicillin 875 MG Oral Tablet [facility] ([facility] [facility]) Ranitidine 150 MG Oral Tablet [facility] ([facility]) Citalopram 20 MG Oral Tablet [facility] ([facility] [facility]) Cephalexin 500 MG Oral Capsule [facility] ([facility] [facility]) aripiprazole 20 MG Oral Tablet [facility] ([facility] [facility]) aripiprazole 15 MG Oral Tablet [facility] ([facility] [facility]) Amoxicillin 875 MG / Clavulanate 125 MG Oral Tablet [facility] ([facility] [facility]) Bacitracin 0.4 UNT/MG / Neomycin 0.0035 MG/MG / Polymyxin B 5 UNT/MG Topical Ointment BREONNA ([facility]) Ranitidine 150 MG Oral Tablet [facility] ([facility] [facility]) Ondansetron 4 MG Oral Tablet [facility] ([facility] [facility]) Nystatin 879519 UNT/ML Topical Cream BREONNA ([facility] [facility]) Hydrocortisone 10 MG/ML / Neomycin 3.5 M G/ML / Polymyxin B 38145 UNT/ML Otic Solution BREONNA ([facility]) montelukast 10 MG Oral Tablet [facility] ([facility]) Meclizine Hydrochloride 25 MG Oral Tablet [facility] ([facility] [facility]) Hydroxyzine Hydrochloride 50 MG Oral Tablet [facility] ([facility] [facility]) Hydroxyzine Hydrochloride 25 MG Oral Tablet [facility] ([facility] [facility]) Fluconazole 150 MG Oral Tablet [facility] ([facility] [facility]) Citalopram 20 MG Oral Tablet [facility] ([facility] [facility]) Cephalexin 500 MG Oral Capsule [facility] ([facility] [facility]) cefdinir 300 MG Oral Capsule [facility] ([facility] [facility]) Azithromycin 250 MG Oral Tablet [facility] ([facility] [facility]) Austedo 9 mg tablet BREONNA ( [facility] [facility]) Austedo 6 mg tablet BREONNA ( [facility] [facility]) Austedo 12 mg tablet BREONNA ([facility] [facility]) atorvastatin 10 MG Oral Tablet [facility] ([facility] aripiprazole 20 MG Oral Tablet [facility] ([facility] [facility]) aripiprazole 15 MG Oral Tablet [facility] ([facility]) Amoxicillin 875 MG / Clavulanate 125 MG Oral Tablet [facility] ([facility] [facility]) 24 HR venlafaxine 75 MG Extended Release Oral Capsule [facility] ([facility] [facility]) 24 HR venlafaxine 37.5 MG Extended Release Oral Capsule [facility] ([facility] [facility]) Ranitidine 150 MG Oral Tablet [facility] ([facility]) Ondansetron 4 MG Oral Tablet [facility] ([facility] [facility]) montelukast 10 MG Oral Tablet [facility] ([facility] [facility]) Hydroxyzine Hydrochloride 50 MG Oral Tablet [facility] ([facility] [facility]) Hydroxyzine Hydrochloride 25 MG Oral Tablet [facility] ([facility]) Citalopram 20 MG Oral Tablet [facility] ([facility] [facility]) cetirizine hydrochloride 10 MG Oral Tablet [facility] ([facility] [facility]) Cephalexin 500 MG Oral Capsule [facility] ([facility] [facility]) Azithromycin 250 MG Oral Tablet [facility] ([facility] [facility]) Austedo 9 mg tablet BREONNA ( [facility] [facility]) [place]edo 6 mg tablet BREONNA ( [facility] [facility]) [place]edo 12 mg tablet BREONNA ([facility] [facility] aripiprazole 20 MG Oral Tablet [facility] ([facility] [facility]) aripiprazole 15 MG Oral Tablet [facility] ([facility]) Amoxicillin 875 MG / Clavulanate 125 MG Oral Tablet [facility]NA ([facility]) 24 HR venlafaxine 37.5 MG Extended Release Oral Capsule [facility] ([facility])
[2021-07-07 18:00] LABS: NT-PRO BNP 20 PG/ML (<125)
[2021-07-07 18:43] LABS: CK-MB VALUE MASS < 1.0 NG/ML (<3.6); CPK CREATINE PHOSPHOKINASE 90 U/L (26-192); MB/CK RELATIVE INDEX 1.11 (< OR =4); TROPONIN I < 0.02 NG/ML (< 0.10)
[2021-07-07 18:51] LABS: RSV AMPLIFICATION NEGATIVE (NEGATIVE)
--- NOTE | 2021-07-07 18:53 | REP ---
INDICATION: r/o DVT RLE. COMPARISON: None. TECHNIQUE: Multiple ultrasonographic images of the deep venous structures of the right lower extremity were obtained from the inguinal ligament to the ankle. Venous compression techniques, color doppler imaging, and augmentation techniques were also obtained where appropriate. As per the ACR guidelines the anterior tibial vein can not be effectively evaluated. Only compression techniques in the calf on the peroneal and posterior tibial veins was attempted/performed. FINDINGS: There is no abnormal echogenic material seen within any of the visualized deep venous structures that would suggest acute thrombosis. Coaptation is unremarkable throughout. Doppler interrogation shows an expected response to respiratory variability and augmentation in the thigh. Compression techniques in the calf were unobtainable. The color flow images show what appears to be a normal vascular pattern throughout the thigh. IMPRESSION: There is no ultrasonographic evidence of deep venous thrombosis involving any of the visualized deep venous structures of the right lower extremity as described above. Due to technical parameters calf vein DVT can not be ruled out. <Electronically signed by Harrison Drake > 07/07/21 [id number]
--- NOTE | 2021-07-07 19:09 | ECGEPIP ---
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
--- NOTE | 2021-07-07 21:25 | REPVR ---
PROCEDURE INFORMATION: Exam: CT Head Without Contrast Exam date and time: 07/07/2021 8:16 PM Age: 50 years old Clinical indication: Dizziness; Additional info: Dizziness, lightheadedness TECHNIQUE: Imaging protocol: Computed tomography of the head without contrast. Radiation optimization: All CT scans at this facility use at least one of these dose optimization techniques: automated exposure control; mA and/or kV adjustment per patient size (includes targeted exams where dose is matched to clinical indication); or iterative reconstruction. COMPARISON: No relevant prior studies available. FINDINGS: Brain: There is no evidence of intracranial bleed. The tovar-white differentiation appears preserved. Cerebral ventricles: Normal appearing ventricles. Paranasal sinuses: Clear paranasal sinuses. Mastoid air cells: Clear mastoid air cells. Orbital cavity: Symmetric orbits. Bones/joints: There is no evidence of fracture. Soft tissues: Unremarkable. IMPRESSION: Normal appearing CT scan of the brain. Electronically signed by: David Painting On 07/07/2021 21:25:20 PM
[2021-07-07 21:45] VITALS: BP 115/58
--- NOTE | 2021-07-09 06:27 | ECGEPIP ---
[facility] - ED Test Date: 2021-07-07 Pat Name: SUZE DOWNEY Department: Room: - Gender: Female Review Nurse: ИРИНА : 1970 Requested By: TENISHA Dahl PA-C Order Number: [id number] Reading MD: Louis Mejia Measurements Intervals [place] Rate: 80 P: 44 [place]: 200 QRS: -24 QRSD: 94 T: 7 QT: 394 QTc: 454 Interpretive Statements Normal sinus rhythm Inferior infarct , age undetermined Similar to tracing done 1304 on same date Electronically Signed on 07-09-2021 6:27:08 EDT by Louis Mejia
== END 2021-07-07 22:08 | disposition home or self-care (01) ==
LOC: M ED 12:43
DX: H81.4 Vertigo of central origin (principal); G47.33 Obstructive sleep apnea (adult) (pediatric); Z98.0 Intestinal bypass and anastomosis status; F41.9 Anxiety disorder, unspecified; Z88.1 Allergy status to other antibiotic agents; Z88.2 Allergy status to sulfonamides; Z88.8 Allergy status to other drugs, medicaments and biological substances
CPT/HCPCS: 70450; 80048; 80076; 81001; 82550; 82553; 83690; 83880; 84439; 84443; 85025; 87631; 93005; 93041; 93971; 96361; 96374; 99285; J3360

== ENCOUNTER → 2021-08-17 | Outpatient (CLI) | payer OTHER ==
[~2021-08-17] MED LIST changes: +ALBU8.5H; +AMLO1TAB24; +ASPI-226; +ATOR40TA75; +AZIT500T5; +BUPR-69; +CEFD300C41; +CITA40TA7; +DULA3PEN; +DULO1CAP5; +DULO1CAP6; +FERR325T19; +FLUC150T9; +GABA-1171; +HYDR-3713 PO; -LATU40TA; -LATU40TA PO; +LATU40TA2; +LATU40TA2 PO; -LATU80TA PO; +LATU80TA2 PO; +LOSA50TA28; +LOSA50TA28 PO; -LOSA50TA88; -LOSA50TA88 PO; +METF-838; -MONT10TA10; -MONT10TA10 PO; +MONT10TA97; +MONT10TA97 PO; +OMEP-173; +PROM25TA12 PO; +PROP10TA56
== END ==
LOC: M RAD 07:40
PROVIDERS: ATTEND Urology
DX: Z87.440 Personal history of urinary (tract) infections (principal)

== ENCOUNTER 2021-09-08 23:44 | Emergency (ER) | payer MEDICAID, OTHER ==
[~2021-09-08] VITALS: Ht 170.2 cm; Wt 128.6 kg
[~2021-09-08 23:44] MED LIST changes: -ALBU8.5H; -AMLO1TAB24; -ASPI-226; -ATOR40TA75; -AZIT500T5; -BUPR-69; -CEFD300C41; -CITA40TA7; -DULA3PEN; -DULO1CAP5; -DULO1CAP6; -FERR325T19; -FLUC150T9; -GABA-1171; -HYDR-3713 PO; -METF-838; -OMEP-173; -PROM25TA12 PO; -PROP10TA56
[2021-09-09] MEDS ORDERED: AZIT500T5 (00:07)
[2021-09-09] MEDS ORDERED: ATOR40TA75 (00:07)
[2021-09-09] MEDS ORDERED: ALBU8.5H (00:07)
[2021-09-09 08:23] LABS: BASO # 0.1 10^3/uL (0.0-0.2); BASO % 0.7 % (0.0-1.0); EOS # 0.2 10^3/uL (0.0-0.5); EOS % 2.2 % (0.0-3.0); HEMATOCRIT 41.2 % (36.0-47.0); HEMOGLOBIN 13.4 g/dl (12.0-15.5); LYMPH # 2.6 10^3/uL (1.5-5.0); LYMPH % 30.1 % (24.0-44.0); MEAN CORPUSCULAR HEMOGLOBIN 28.7 pg (27.0-33.0); MEAN CORPUSCULAR HGB CONC 32.5 g/dl (32.0-36.5); MEAN CORPUSCULAR VOLUME 88.2 fl (80.0-96.0); MONO # 0.6 10^3/uL (0.0-0.8); MONO % 6.7 % (2.0-8.0); NEUTROPHILS # 5.1 10^3/uL (1.5-8.5); NEUTROPHILS % 59.9 % (36.0-66.0); PLATELET COUNT, AUTOMATED 324 10^3/uL (150-450); RED BLOOD COUNT 4.67 10^6/uL (4.00-5.40); WHITE BLOOD COUNT 8.6 10^3/uL (4.0-10.0)
[2021-09-09 08:54] LABS: ALBUMIN 3.3 GM/DL (3.2-5.2); ALT/SGPT 49 U/L (12-78); BILIRUBIN,DIRECT 0.2 MG/DL (0.0-0.2); BILIRUBIN,TOTAL 0.6 MG/DL (0.2-1.0); BLOOD UREA NITROGEN 7 MG/DL (7-18); CARBON DIOXIDE LEVEL 28 MEQ/L (21-32); CHLORIDE LEVEL 106 MEQ/L (98-107); CREATININE FOR GFR 0.64 MG/DL (0.55-1.30); GLOMERULAR FILTRATION RATE > 60.0 (>58); GLUCOSE, FASTING 131 MG/DL (70-100); LIPASE 544 U/L (73-393); MAGNESIUM LEVEL 2.3 MG/DL (1.8-2.4); POTASSIUM SERUM 3.8 MEQ/L (3.5-5.1); SODIUM LEVEL 139 MEQ/L (136-145); TOTAL PROTEIN 6.7 GM/DL (6.4-8.2)
[2021-09-09] MEDS ORDERED: KETOROLAC 30 MG/ML 1ML VIAL IV ONE (09:20)
[2021-09-09 10:27] LABS: RSV AMPLIFICATION NEGATIVE (NEGATIVE)
[2021-09-09 10:36] VITALS: BP 139/80
== END 2021-09-09 11:20 | disposition home or self-care (01) ==
LOC: M ED 23:44
DX: J06.9 Acute upper respiratory infection, unspecified (principal); R07.89 Other chest pain; E11.9 Type 2 diabetes mellitus without complications; Z88.1 Allergy status to other antibiotic agents; Z88.2 Allergy status to sulfonamides; Z79.899 Other long term (current) drug therapy; Z79.82 Long term (current) use of aspirin; Z79.4 Long term (current) use of insulin
CPT/HCPCS: 71045; 80048; 80076; 82550; 83690; 83735; 84443; 85025; 87631; 93005; 93041; 94760; 96374; 99284; J1885

== ENCOUNTER → 2021-09-14 | Outpatient (CLI) | payer OTHER ==
[~2021-09-14] MED LIST changes: +ALBU8.5H; +ATOR40TA75; +AZIT500T5; +LATU40TA; +LATU40TA PO; -LATU40TA2; -LATU40TA2 PO; +LATU80TA PO; -LATU80TA2 PO; -LOSA50TA28; -LOSA50TA28 PO; +LOSA50TA88; +LOSA50TA88 PO; +MONT10TA10; +MONT10TA10 PO; -MONT10TA97; -MONT10TA97 PO
[2021-09-14 17:23] LABS: C REACTIVE PROTEIN QUANTITATIV 1.01 MG/DL (0.00-0.30); RHEUMATOID FACTOR QUANT < 10.0 IU/ML (<15.0); URIC ACID 2.2 MG/DL (2.6-6.0)
== END ==
LOC: M PLALAB 15:23
PROVIDERS: ATTEND Physician Assistant
DX: M17.0 Bilateral primary osteoarthritis of knee (principal)

== ENCOUNTER → 2021-09-19 | Outpatient (REF) | payer OTHER ==
[2021-09-19 14:09] LABS: APPEARANCE, URINE HAZY (CLEAR); BACTERIA, URINE AUTO 1+ (NEGATIVE); BILIRUBIN, URINE AUTO NEGATIVE (NEGATIVE); BLOOD, URINE BLOOD NEGATIVE (NEGATIVE); COLOR, URINE YELLOW (YELLOW); GLUCOSE, URINE (UA) AUTO 1+ mg/dL (NEGATIVE); KETONE, URINE AUTO NEGATIVE (NEGATIVE); LEUKOCYTE ESTERASE, URINE AUTO NEGATIVE (NEGATIVE); MUCUS, URINE SMALL (NEGATIVE); NITRITE, URINE AUTO NEGATIVE (NEGATIVE); PROTEIN, URINE AUTO NEGATIVE (NEGATIVE); RBC, URINE AUTO 0 /HPF (0-3); SPECIFIC GRAVITY URINE AUTO 1.015 (1.002-1.035); SQUAMOUS EPITHELIAL CELL UR AU 1 /HPF (0-6); UROBILINOGEN, URINE AUTO 0.2 mg/dL (0.0-2.0); WBC, URINE AUTO 1 /HPF (0-3)
== END ==
LOC: M SMT 13:16
PROVIDERS: ATTEND Urology
DX: Z87.440 Personal history of urinary (tract) infections (principal)

== ENCOUNTER → 2021-10-18 | Outpatient (REF) | payer OTHER, MEDICAID ==
[~2021-10-18] MED LIST changes: -LATU40TA; -LATU40TA PO; +LATU40TA2; +LATU40TA2 PO; -LATU80TA PO; +LATU80TA2 PO; +LOSA50TA28; +LOSA50TA28 PO; -LOSA50TA88; -LOSA50TA88 PO; -MONT10TA10; -MONT10TA10 PO; +MONT10TA97; +MONT10TA97 PO
== END ==
LOC: M LAB REF 11:37
PROVIDERS: ATTEND Physician Assistant Medical
DX: N39.0 Urinary tract infection, site not specified (principal)

== ENCOUNTER → 2021-10-22 | Outpatient (CLI) | payer OTHER ==
[~2021-10-22] MED LIST changes: +AMLO1TAB24; +ASPI-226; +BUPR-69; +CEFD300C41; +CITA40TA7; +DULA3PEN; +DULO1CAP5; +DULO1CAP6; +FERR325T19; +FLUC150T9; +GABA-1171; +METF-838; +OMEP-173; +PROP10TA56
== END ==
LOC: M RAD 08:45
PROVIDERS: ATTEND Physician Assistant
DX: S99.922A Unspecified injury of left foot, initial encounter (principal); W01.0XXA Fall on same level from slipping, tripping and stumbling without subsequent striking against object, initial encounter; Y92.014 Private driveway to single-family (private) house as the place of occurrence of the external cause; Y93.9 Activity, unspecified; Y99.9 Unspecified external cause status

== ENCOUNTER 2021-10-24 09:32 | Emergency (ER) | payer OTHER ==
[~2021-10-24] VITALS: Ht 170.2 cm; Wt 131.8 kg
[~2021-10-24 09:32] MED LIST changes: -AMLO1TAB24; -ASPI-226; -BUPR-69; -CEFD300C41; -CITA40TA7; -DULA3PEN; -DULO1CAP5; -DULO1CAP6; -FERR325T19; -FLUC150T9; -GABA-1171; -METF-838; -OMEP-173; -PROP10TA56
[2021-10-24] MEDS ORDERED: OMEP-173 (10:13)
[2021-10-24] MEDS ORDERED: CITA40TA7 (10:13)
[2021-10-24] MEDS ORDERED: LEVO88TA3 (10:13)
[2021-10-24] MEDS ORDERED: DULO1CAP6 (10:13)
[2021-10-24] MEDS ORDERED: BUPR-69 (10:13)
[2021-10-24] MEDS ORDERED: DULA3PEN (10:13)
[2021-10-24] MEDS ORDERED: ASPI-226 (10:13)
[2021-10-24] MEDS ORDERED: FLUC150T9 (10:13)
[2021-10-24] MEDS ORDERED: PROP10TA56 (10:13)
[2021-10-24] MEDS ORDERED: CEFD300C41 (10:13)
[2021-10-24] MEDS ORDERED: GABA-1171 (10:13)
[2021-10-24] MEDS ORDERED: METF-838 (10:13)
[2021-10-24] MEDS ORDERED: DULO1CAP5 (10:13)
[2021-10-24] MEDS ORDERED: AMLO1TAB24 (10:13)
[2021-10-24] MEDS ORDERED: FERR325T19 (10:13)
[2021-10-24] MEDS ORDERED: KETOROLAC 60MG 2ML VIAL IM ONE (10:30)
[2021-10-24 11:25] VITALS: BP 140/98
== END 2021-10-24 11:30 | disposition home or self-care (01) ==
LOC: M ED 09:32
DX: S93.402A Sprain of unspecified ligament of left ankle, initial encounter (principal); W01.0XXA Fall on same level from slipping, tripping and stumbling without subsequent striking against object, initial encounter; E11.9 Type 2 diabetes mellitus without complications; K21.9 Gastro-esophageal reflux disease without esophagitis; J45.909 Unspecified asthma, uncomplicated; E03.9 Hypothyroidism, unspecified; I10 Essential (primary) hypertension; Z88.1 Allergy status to other antibiotic agents; Z88.2 Allergy status to sulfonamides; Y92.014 Private driveway to single-family (private) house as the place of occurrence of the external cause; Y93.9 Activity, unspecified; Y99.9 Unspecified external cause status
CPT/HCPCS: 73590; 96372; 99284; J1885

== ENCOUNTER 2021-10-26 17:35 | Emergency (ER) | payer OTHER, MEDICAID ==
[~2021-10-26] VITALS: Ht 170.2 cm; Wt 136.4 kg
[~2021-10-26 17:35] MED LIST changes: +AMLO1TAB24; +ASPI-226; +BUPR-69; +CEFD300C41; +CITA40TA7; +DULA3PEN; +DULO1CAP5; +DULO1CAP6; +FERR325T19; +FLUC150T9; +GABA-1171; +METF-838; +OMEP-173; +PROP10TA56
[2021-10-26 17:36] VITALS: BP 142/79
[2021-10-27] MEDS ORDERED: HYDR-3713 PO (15:43)
[2021-10-27] MEDS ORDERED: PROM25TA12 PO (15:43)
== END 2021-10-26 22:10 | disposition left against medical advice (07) ==
LOC: M ED 17:35
DX: Z53.21 Procedure and treatment not carried out due to patient leaving prior to being seen by health care provider (principal)

== ENCOUNTER 2021-10-27 10:27 | Emergency (ER) | payer MEDICAID, OTHER ==
[~2021-10-27] VITALS: Ht 170.2 cm; Wt 136.4 kg
[2021-10-27 11:49] LABS: BASO # 0.1 10^3/uL (0.0-0.2); BASO % 0.6 % (0.0-1.0); EOS # 0.2 10^3/uL (0.0-0.5); EOS % 2.1 % (0.0-3.0); HEMATOCRIT 45.8 % (36.0-47.0); HEMOGLOBIN 14.9 g/dl (12.0-15.5); LYMPH # 2.4 10^3/uL (1.5-5.0); LYMPH % 28.2 % (24.0-44.0); MEAN CORPUSCULAR HEMOGLOBIN 28.6 pg (27.0-33.0); MEAN CORPUSCULAR HGB CONC 32.5 g/dl (32.0-36.5); MEAN CORPUSCULAR VOLUME 87.9 fl (80.0-96.0); MONO # 0.6 10^3/uL (0.0-0.8); MONO % 6.6 % (2.0-8.0); NEUTROPHILS # 5.3 10^3/uL (1.5-8.5); PLATELET COUNT, AUTOMATED 377 10^3/uL (150-450); RED BLOOD COUNT 5.21 10^6/uL (4.00-5.40); WHITE BLOOD COUNT 8.5 10^3/uL (4.0-10.0)
[2021-10-27 12:18] LABS: ALBUMIN 3.5 GM/DL (3.2-5.2); ALT/SGPT 72 U/L (12-78); BILIRUBIN,DIRECT 0.2 MG/DL (0.0-0.2); BILIRUBIN,TOTAL 0.7 MG/DL (0.2-1.0); BLOOD UREA NITROGEN 6 MG/DL (7-18); CALCIUM LEVEL 9.6 MG/DL (8.5-10.1); CARBON DIOXIDE LEVEL 27 MEQ/L (21-32); CHLORIDE LEVEL 104 MEQ/L (98-107); CREATININE FOR GFR 0.63 MG/DL (0.55-1.30); GLOMERULAR FILTRATION RATE > 60.0 (>58); GLUCOSE, FASTING 183 MG/DL (70-100); LIPASE 452 U/L (73-393); POTASSIUM SERUM 3.9 MEQ/L (3.5-5.1); SODIUM LEVEL 137 MEQ/L (136-145); TOTAL PROTEIN 7.2 GM/DL (6.4-8.2)
[2021-10-27] MEDS ORDERED: MORPHINE 4 MG/ML 1ML VIAL/SYRINGE (J2270) IV ONE (14:20)
[2021-10-27] MEDS ORDERED: NS 1,000 ML IV ONE (14:20)
[2021-10-27] MEDS ORDERED: ONDANSETRON 4MG/2ML VIAL IV ONE (14:20)
[2021-10-27] MEDS ORDERED: ISOVUE-370 76% 100ML VIAL As Ordered ONE (14:21)
[2021-10-27] MEDS ORDERED: PROM25TA12 PO (15:43)
[2021-10-27] MEDS ORDERED: HYDR-3713 PO (15:43)
[2021-10-27 16:42] VITALS: BP 140/82
== END 2021-10-27 16:51 | disposition home or self-care (01) ==
LOC: M ED 10:27
DX: K85.90 Acute pancreatitis without necrosis or infection, unspecified (principal); E11.9 Type 2 diabetes mellitus without complications; I10 Essential (primary) hypertension; K21.9 Gastro-esophageal reflux disease without esophagitis; F31.9 Bipolar disorder, unspecified; J45.909 Unspecified asthma, uncomplicated; Z79.4 Long term (current) use of insulin; Z79.899 Other long term (current) drug therapy
CPT/HCPCS: 74177; 80048; 80076; 81001; 83690; 85025; 96361; 96374; 96375; 99284; J2270; J2405; Q9967

== ENCOUNTER → 2021-11-11 | Outpatient (CLI) | payer OTHER ==
[~2021-11-11] MED LIST changes: +HYDR-3713 PO; +PROM25TA12 PO
== END ==
LOC: M RAD 13:16
PROVIDERS: ATTEND Physician Assistant Medical
DX: M77.31 Calcaneal spur, right foot (principal); M25.571 Pain in right ankle and joints of right foot

== ENCOUNTER 2021-11-15 10:49 | Emergency (ER) | payer OTHER ==
[~2021-11-15] VITALS: Ht 170.2 cm; Wt 130.4 kg
[2021-11-15 12:42] LABS: BASO # 0.1 10^3/uL (0.0-0.2); BASO % 0.8 % (0.0-1.0); EOS # 0.2 10^3/uL (0.0-0.5); EOS % 2.2 % (0.0-3.0); HEMATOCRIT 42.5 % (36.0-47.0); HEMOGLOBIN 14.2 g/dl (12.0-15.5); LYMPH # 2.4 10^3/uL (1.5-5.0); LYMPH % 31.2 % (24.0-44.0); MEAN CORPUSCULAR HEMOGLOBIN 28.6 pg (27.0-33.0); MEAN CORPUSCULAR HGB CONC 33.4 g/dl (32.0-36.5); MEAN CORPUSCULAR VOLUME 85.7 fl (80.0-96.0); MONO # 0.5 10^3/uL (0.0-0.8); MONO % 6.9 % (2.0-8.0); NEUTROPHILS # 4.6 10^3/uL (1.5-8.5); NEUTROPHILS % 58.6 % (36.0-66.0); PLATELET COUNT, AUTOMATED 304 10^3/uL (150-450); RED BLOOD COUNT 4.96 10^6/uL (4.00-5.40); WHITE BLOOD COUNT 7.8 10^3/uL (4.0-10.0)
[2021-11-15 13:09] LABS: ALBUMIN 3.6 GM/DL (3.2-5.2); ALT/SGPT 68 U/L (12-78); BILIRUBIN,DIRECT 0.2 MG/DL (0.0-0.2); BILIRUBIN,TOTAL 0.8 MG/DL (0.2-1.0); LIPASE 126 U/L (73-393); TOTAL PROTEIN 6.9 GM/DL (6.4-8.2)
[2021-11-15 14:22] LABS: HCG, SERUM QUALITATIVE NEGATIVE (NEGATIVE)
[2021-11-15 15:29] LABS: RSV AMPLIFICATION NEGATIVE (NEGATIVE)
[2021-11-15] MEDS ORDERED: KETOROLAC 30 MG/ML 1ML VIAL IV ONE (15:45)
[2021-11-15 17:00] VITALS: BP 151/92
== END 2021-11-15 17:05 | disposition home or self-care (01) ==
LOC: M ED 10:49
DX: R10.84 Generalized abdominal pain (principal); M79.10 Myalgia, unspecified site; E11.9 Type 2 diabetes mellitus without complications; I10 Essential (primary) hypertension; E78.5 Hyperlipidemia, unspecified; F32.A Depression, unspecified; Z79.84 Long term (current) use of oral hypoglycemic drugs; Z88.1 Allergy status to other antibiotic agents; Z88.2 Allergy status to sulfonamides; Z88.8 Allergy status to other drugs, medicaments and biological substances; Z79.899 Other long term (current) drug therapy
CPT/HCPCS: 71045; 80047; 80076; 81001; 83690; 84703; 85025; 87631; 93005; 96374; 99284; J1885

== ENCOUNTER → 2021-11-15 | Outpatient (CLI) | payer OTHER ==
[2021-11-15 11:22] LABS: HEMATOCRIT 42.3 % (36.0-47.0); HEMOGLOBIN 13.9 g/dl (12.0-15.5); MEAN CORPUSCULAR HEMOGLOBIN 28.5 pg (27.0-33.0); MEAN CORPUSCULAR HGB CONC 32.9 g/dl (32.0-36.5); MEAN CORPUSCULAR VOLUME 86.9 fl (80.0-96.0); PLATELET COUNT, AUTOMATED 333 10^3/uL (150-450); RED BLOOD COUNT 4.87 10^6/uL (4.00-5.40); WHITE BLOOD COUNT 7.6 10^3/uL (4.0-10.0)
[2021-11-15 12:18] LABS: ALBUMIN 3.6 GM/DL (3.2-5.2); ALT/SGPT 68 U/L (12-78); AMYLASE 34 U/L (25-115); BILIRUBIN,TOTAL 0.7 MG/DL (0.2-1.0); BLOOD UREA NITROGEN 7 MG/DL (7-18); CALCIUM LEVEL 9.5 MG/DL (8.5-10.1); CARBON DIOXIDE LEVEL 32 MEQ/L (21-32); CHLORIDE LEVEL 101 MEQ/L (98-107); CHOLESTEROL LEVEL 148 MG/DL (<200); CHOLESTEROL RISK RATIO 2.426 (<5); CREATININE FOR GFR 0.57 MG/DL (0.55-1.30); FREE T4 0.99 NG/DL (0.76-1.46); GLOMERULAR FILTRATION RATE > 60.0 (>58); GLUCOSE, FASTING 182 MG/DL (70-100); HDL CHOLESTEROL 61 MG/DL (>40); LDL CHOLESTEROL 76 MG/DL (<100); LIPASE 139 U/L (73-393); NON-HDL-C 87 MG/DL; POTASSIUM SERUM 3.7 MEQ/L (3.5-5.1); SODIUM LEVEL 138 MEQ/L (136-145); TOTAL PROTEIN 7.1 GM/DL (6.4-8.2); TRIGLYCERIDES LEVEL 57 MG/DL (<150)
== END ==
LOC: M LAB 09:53
PROVIDERS: ATTEND Nurse Practitioner Family
DX: Z13.220 Encounter for screening for lipoid disorders (principal)

== ENCOUNTER → 2021-11-23 | Outpatient (CLI) | payer OTHER ==
[~2021-11-23] MED LIST changes: +T E MIS MC; +TRAM50TA2 PO
== END ==
LOC: M RAD 17:47
PROVIDERS: ATTEND Physician Assistant
DX: M25.572 Pain in left ankle and joints of left foot (principal)

== ENCOUNTER 2021-11-25 10:31 | Emergency (ER) | payer MEDICARE, OTHER ==
[~2021-11-25] VITALS: Ht 165.1 cm; Wt 130.4 kg
[~2021-11-25 10:31] MED LIST changes: -T E MIS MC; -TRAM50TA2 PO
[2021-11-25] MEDS ORDERED: traMADol 50 MG TAB PO ONE (12:35)
[2021-11-25 14:09] VITALS: BP 155/101
[2021-11-25] MEDS ORDERED: TRAM50TA2 PO (14:09)
[2021-11-25] MEDS ORDERED: T E MIS MC ×2 (14:11→14:24)
== END 2021-11-25 14:27 | disposition home or self-care (01) ==
LOC: EDBD 10:31 → M ED 10:31
DX: M48.061 Spinal stenosis, lumbar region without neurogenic claudication (principal); M54.32 Sciatica, left side; E66.9 Obesity, unspecified; J45.909 Unspecified asthma, uncomplicated; G47.33 Obstructive sleep apnea (adult) (pediatric); K21.9 Gastro-esophageal reflux disease without esophagitis; E11.9 Type 2 diabetes mellitus without complications; I10 Essential (primary) hypertension; E03.9 Hypothyroidism, unspecified; K58.9 Irritable bowel syndrome, unspecified; N80.9 Endometriosis, unspecified; R25.1 Tremor, unspecified; F41.9 Anxiety disorder, unspecified; F31.9 Bipolar disorder, unspecified; Z79.899 Other long term (current) drug therapy; Z79.82 Long term (current) use of aspirin; Z79.890 Hormone replacement therapy; Z79.4 Long term (current) use of insulin; Z88.2 Allergy status to sulfonamides; Z88.1 Allergy status to other antibiotic agents; Z88.8 Allergy status to other drugs, medicaments and biological substances; Z98.890 Other specified postprocedural states

== ENCOUNTER 2021-11-29 17:14 | Observation (INO) | payer OTHER ==
[~2021-11-29] VITALS: Ht 170.2 cm; Wt 134.7 kg
[~2021-11-29 17:14] MED LIST changes: +ADME100I SC; -ALBU8.5H; +ALBU8.5H INH; -AMLO1TAB24; +AMLO1TAB24 PO; -ATOR40TA75; +ATOR40TA75 PO; -BUPR-69; +BUPR-69 PO; -CITA40TA7; +CITA40TA7 PO; -DULO1CAP5; +DULO1CAP5 PO; -DULO1CAP6; +DULO1CAP6 PO; -FLON1SPR; +FLON1SPR NARES; -GABA-1171; +GABA-1171 PO; +LEVO88TA3 PO; -OMEP-173; +OMEP-173 PO; -POTA1TAB23; +POTA1TAB23 PO; -PROP10TA56; +PROP10TA56 PO; +T E MIS MC; +TRAM50TA2 PO
[2021-11-29] MEDS ORDERED: atenoloL 50 MG TAB PO ONE (17:50)
[2021-11-29 18:30] LABS: HEMATOCRIT 41.9 % (36.0-47.0); MEAN CORPUSCULAR HEMOGLOBIN 28.8 pg (27.0-33.0); MEAN CORPUSCULAR HGB CONC 33.4 g/dl (32.0-36.5); MEAN CORPUSCULAR VOLUME 86.2 fl (80.0-96.0); PLATELET COUNT, AUTOMATED 324 10^3/uL (150-450); RED BLOOD COUNT 4.86 10^6/uL (4.00-5.40); WHITE BLOOD COUNT 8.8 10^3/uL (4.0-10.0)
[2021-11-29] MEDS ORDERED: LORazepam 2 MG/ML VIAL IV STA ×3 (18:42→22:34)
[2021-11-29 19:09] LABS: ACETAMINOPHEN LEVEL < 2.0 UG/ML (10.0-30.0); ALBUMIN 3.5 GM/DL (3.2-5.2); ALT/SGPT 51 U/L (12-78); BILIRUBIN,DIRECT 0.3 MG/DL (0.0-0.2); BILIRUBIN,TOTAL 0.9 MG/DL (0.2-1.0); BLOOD UREA NITROGEN 8 MG/DL (7-18); CALCIUM LEVEL 9.1 MG/DL (8.5-10.1); CARBON DIOXIDE LEVEL 28 MEQ/L (21-32); CHLORIDE LEVEL 105 MEQ/L (98-107); CREATININE FOR GFR 0.61 MG/DL (0.55-1.30); ETHYL ALCOHOL (ETHANOL) < 0.003 % (0.000-0.010); GLOMERULAR FILTRATION RATE > 60.0 (>58); GLUCOSE, FASTING 229 MG/DL (70-100); LIPASE 639 U/L (73-393); POTASSIUM SERUM 3.3 MEQ/L (3.5-5.1); SALICYLATE LEVEL < 1.7 MG/DL (5.0-30.0); SODIUM LEVEL 139 MEQ/L (136-145); TOTAL PROTEIN 6.6 GM/DL (6.4-8.2); VALPROIC ACID (DEPAKOTE) < 3.0 UG/ML (50.0-100.0)
[2021-11-29 19:19] LABS: HCG, SERUM QUALITATIVE NEGATIVE (NEGATIVE)
[2021-11-29] MEDS ORDERED: POTASSIUM CHLORIDE 10MEQ SR TABLET PO ONE (19:20)
[2021-11-29 19:22] LABS: AMPHETAMINES LEVEL URINE NEGATIVE (NEGATIVE); BARBITURATES URINE NEGATIVE (NEGATIVE); BENZODIAZEPINES URINE NEGATIVE (NEGATIVE); CANNABINOIDS URINE NEGATIVE (NEGATIVE); COCAINE METABOLITE URINE NEGATIVE (NEGATIVE); METHADONE URINE NEGATIVE (NEGATIVE); OPIATES URINE NEGATIVE (NEGATIVE); PHENCYCLIDINE URINE NEGATIVE (NEGATIVE)
[2021-11-29] MEDS ORDERED: MIDAZOLAM INJ 2MG/2ML VIAL (J2250 PER 1MG) IV ONE (21:25)
[2021-11-29] MEDS ORDERED: MIDAZOLAM 5MG/ML 1ML VIAL (J2250 PER 1MG) As Ordered ONE (21:26)
[2021-11-29] MEDS ORDERED: MIDAZOLAM 5MG/ML 1ML VIAL (J2250 PER 1MG) IM ONE (21:40)
[2021-11-29 22:44] LABS: RSV AMPLIFICATION NEGATIVE (NEGATIVE)
[2021-11-29] MEDS ORDERED: GLUCOSE 4GM CHEW TABLET PO PRN (23:55)
[2021-11-29] MEDS ORDERED: GLUCAGON INJ 1MG VIAL SC PRN (23:55)
[2021-11-29] MEDS ORDERED: DEXTROSE 50% 50 ML SYRINGE IV PRN (23:55)
[2021-11-29] MEDS ORDERED: LEVEMIR (INSULIN DETEMIR) 1 UNITS/0.01ML SC ONE (23:55)
[2021-11-29] MEDS ORDERED: KETOROLAC 30 MG/ML 1ML VIAL IV PRN (23:55)
[2021-11-30] VITALS (7 sets, daily range): BP systolic 102–141; BP diastolic 53–82
[2021-11-30] MEDS: NS 1,000 ML IV SCH ×2 (01:35→13:15)
[2021-11-30] MEDS: HumaLOG INSULIN (NovoLOG) PER UNIT SC SCH ×4 (03:09→17:51)
[2021-11-30] MEDS ORDERED: OLANZapine INTRAMUSCULAR 10MG VIAL IM ONE ×3 (03:20→18:50)
[2021-11-30] MEDS: HEPARIN SOD (PORCINE) 5000UNITS/ML 1ML VIAL/SYRINGE SC SCH ×2 (06:33→14:07)
[2021-11-30 07:15] LABS: BLOOD UREA NITROGEN 7 MG/DL (7-18); CARBON DIOXIDE LEVEL 31 MEQ/L (21-32); CHLORIDE LEVEL 103 MEQ/L (98-107); CREATININE FOR GFR 0.64 MG/DL (0.55-1.30); GLOMERULAR FILTRATION RATE > 60.0 (>58); GLUCOSE, FASTING 204 MG/DL (70-100); LIPASE 427 U/L (73-393); POTASSIUM SERUM 3.4 MEQ/L (3.5-5.1); SODIUM LEVEL 139 MEQ/L (136-145)
[2021-11-30] MEDS ORDERED: SUCR1TAB56 PO (08:26)
[2021-11-30] MEDS ORDERED: MELO15TA28 PO (08:26)
[2021-11-30] MEDS ORDERED: HYDR-3490 PO (08:26)
[2021-11-30] MEDS ORDERED: ATEN100T PO (08:26)
[2021-11-30] MEDS ORDERED: VITA100093 PO (08:26)
[2021-11-30] MEDS ORDERED: MECL1TAB31 PO (08:26)
[2021-11-30] MEDS ORDERED: TRAM50TA2 PO ×2 (08:26→17:25)
[2021-11-30] MEDS ORDERED: FERR1TAB8 PO (08:26)
[2021-11-30] MEDS ORDERED: FISH1000 PO (08:26)
[2021-11-30] MEDS ORDERED: LORA-674 PO (08:26)
[2021-11-30] MEDS ORDERED: BUPR150T5 PO (08:26)
[2021-11-30] MEDS ORDERED: METH-1164 PO (08:26)
[2021-11-30] MEDS ORDERED: ACET-683 PO (08:26)
[2021-11-30] MEDS ORDERED: FOLI1TAB11 PO (08:26)
[2021-11-30] MEDS ORDERED: LOSARTAN 50MG TABLET PO SCH (09:00)
[2021-11-30] MEDS ORDERED: HOME MED LIST COMPLETE! XX SCH (10:15)
[2021-11-30] MEDS ORDERED: MECLIZINE 25 MG TABLET PO PRN (13:10)
[2021-11-30] MEDS ORDERED: ALBUTEROL 90 MCG/ACT 8GM HFA INHALER INH PRN (13:10)
[2021-11-30] MEDS: GABAPENTIN 100 MG CAP PO SCH ×2 (15:38→20:57)
[2021-11-30] MEDS ORDERED: methocarbamoL 500 MG TAB PO SCH (21:00)
[2021-11-30] MEDS ORDERED: POTASSIUM CHLORIDE 10MEQ SR TABLET PO SCH (21:00)
[2021-11-30] MEDS ORDERED: LEVEMIR (INSULIN DETEMIR) 1 UNITS/0.01ML SC SCH (21:00)
[2021-11-30] MEDS ORDERED: amLODIPine 5 MG TAB PO SCH (21:00)
[2021-11-30] MEDS ORDERED: ATORVASTATIN 20 MG TAB PO SCH (21:00)
[2021-12-01] MEDS ORDERED: LEVOTHYROXINE 88MCG TABLET (0.088 MG) PO SCH (06:00)
[2021-12-01] MEDS ORDERED: FLUTICASONE PROP 0.05% NASAL SPRAY 16 GM (FLONASE) NARES SCH (09:00)
[2021-12-01] MEDS ORDERED: buPROPion **SR TABLET** (ZYBAN) 150MG PO SCH (09:00)
[2021-12-01] MEDS ORDERED: METOPROLOL SUCC (TopROL XL) 50MG **XL** TAB PO SCH (09:00)
[2021-12-01] MEDS ORDERED: LEVEMIR (INSULIN DETEMIR) 1 UNITS/0.01ML SC SCH (09:00)
[2021-12-01] MEDS ORDERED: CETIRIZINE (ZyrTEC) 10 MG TAB PO SCH (09:00)
[2021-12-01] MEDS ORDERED: OMEPRAZOLE 20MG CAP PO SCH (09:00)
[2021-12-01] MEDS ORDERED: FOLIC ACID 1 MG TAB PO SCH (09:00)
[2021-12-01] MEDS ORDERED: FERROUS SULFATE 325MG TAB PO SCH (09:00)
[2021-12-01] MEDS ORDERED: ASPIRIN 81MG ENTERIC TABLET PO SCH (09:00)
== END 2021-11-30 21:48 ==
LOC: M ED 17:14 → EDBD 17:14 → M ED INP 17:15 → UNDOADMOB 17:15 → M ED INP 17:16 → M PCU 11-30 01:08
PROVIDERS: ADMIT Internal Medicine; ATTEND Internal Medicine
DX: K85.90 Acute pancreatitis without necrosis or infection, unspecified (principal); K86.1 Other chronic pancreatitis; I16.0 Hypertensive urgency; E87.6 Hypokalemia; E11.40 Type 2 diabetes mellitus with diabetic neuropathy, unspecified; E03.9 Hypothyroidism, unspecified; K21.9 Gastro-esophageal reflux disease without esophagitis; Z79.82 Long term (current) use of aspirin; Z79.4 Long term (current) use of insulin; Z79.899 Other long term (current) drug therapy; Z88.2 Allergy status to sulfonamides; Z88.8 Allergy status to other drugs, medicaments and biological substances
CPT/HCPCS: 36415; 74176; 80048; 80076; 80143; 80164; 80307; 82077; 83690; 84443; 84703; 85027; 87631; 93005; 96361; 96372; 96374; 96375; 96376; 99285; J1644; J1815; J1885; J2060; J2250

== ENCOUNTER 2021-11-30 18:51 | Inpatient (IN) | payer MEDICAID, OTHER ==
[~2021-11-30] VITALS: Ht 170.2 cm; Wt 130.0 kg
[~2021-11-30 18:51] MED LIST changes: +ACET-683 PO; +BUPR150T5 PO; +FISH1000 PO; +LORA-674 PO; +MELO15TA28 PO; +SUCR1TAB56 PO; +VITA100093 PO
[2021-11-30] MEDS ORDERED: MOM 30ML SUSPENSION UDC PO PRN (19:00)
[2021-11-30] MEDS ORDERED: HOME MED LIST COMPLETE! XX SCH (19:15)
[2021-11-30] MEDS ORDERED: ALBUTEROL 90 MCG/ACT 8GM HFA INHALER INH PRN (19:25)
[2021-11-30] MEDS: GABAPENTIN 100 MG CAP PO SCH (21:00)
[2021-11-30] MEDS: amLODIPine 5 MG TAB PO SCH (21:00)
[2021-11-30] MEDS: ATORVASTATIN 20 MG TAB PO SCH (21:00)
[2021-11-30 22:02] VITALS: BP 131/83
[2021-11-30] MEDS: methocarbamoL 500 MG TAB PO SCH (23:41)
[2021-11-30] MEDS: LITHIUM CARBONATE 300 MG CAP PO SCH (23:42)
[2021-11-30] MEDS: traZODone 50 MG TAB PO PRN (23:43)
[2021-11-30] MEDS: OLANZapine ORAL DISINTEGRATING TAB 5MG PO PRN (23:43)
[2021-12-01] MEDS: LEVOTHYROXINE 88MCG TABLET (0.088 MG) PO SCH (05:43)
[2021-12-01 06:56] VITALS: BP 122/80
[2021-12-01] MEDS ORDERED: DEXTROSE 50% 50 ML SYRINGE IV PRN (07:55)
[2021-12-01] MEDS ORDERED: GLUCOSE 4GM CHEW TABLET PO PRN (07:55)
[2021-12-01] MEDS ORDERED: GLUCAGON INJ 1MG VIAL SC PRN (07:55)
[2021-12-01] MEDS ORDERED: NICOTINE 21MG/24HR 1 EA TRANSDERMAL TD SCH (09:00)
[2021-12-01] MEDS: FLUTICASONE PROP 0.05% NASAL SPRAY 16 GM (FLONASE) NARES SCH (09:23)
[2021-12-01] MEDS: GABAPENTIN 100 MG CAP PO SCH ×3 (09:24→21:29)
[2021-12-01] MEDS: FOLIC ACID 1 MG TAB PO SCH (09:24)
[2021-12-01] MEDS: ASPIRIN 81MG ENTERIC TABLET PO SCH (09:24)
[2021-12-01] MEDS: FERROUS SULFATE 325MG TAB PO SCH (09:25)
[2021-12-01] MEDS: methocarbamoL 500 MG TAB PO SCH ×2 (09:25→21:30)
[2021-12-01] MEDS: OMEPRAZOLE 20MG CAP PO SCH (09:25)
[2021-12-01] MEDS: CETIRIZINE (ZyrTEC) 10 MG TAB PO SCH (09:25)
[2021-12-01] MEDS: LOSARTAN 50MG TABLET PO SCH (09:28)
[2021-12-01] MEDS: METOPROLOL SUCC (TopROL XL) 50MG **XL** TAB PO SCH (09:29)
[2021-12-01] MEDS: HumaLOG INSULIN (NovoLOG) PER UNIT SC SCH ×4 (09:34→21:00)
[2021-12-01] MEDS ORDERED: LORazepam 1 MG TAB PO ONE (11:45)
[2021-12-01 19:00] VITALS: BP 140/82
[2021-12-01] MEDS: traZODone 50 MG TAB PO PRN (21:29)
[2021-12-01] MEDS: amLODIPine 5 MG TAB PO SCH (21:30)
[2021-12-01] MEDS: LITHIUM CARBONATE 300 MG CAP PO SCH (21:30)
[2021-12-01] MEDS: ATORVASTATIN 20 MG TAB PO SCH (21:30)
[2021-12-01] MEDS: LEVEMIR (INSULIN DETEMIR) 1 UNITS/0.01ML SC SCH (21:35)
[2021-12-02] MEDS: LEVOTHYROXINE 88MCG TABLET (0.088 MG) PO SCH (05:49)
[2021-12-02 06:50] VITALS: BP 131/60
[2021-12-02] MEDS: HumaLOG INSULIN (NovoLOG) PER UNIT SC SCH ×4 (06:51→20:49)
[2021-12-02] MEDS: FLUTICASONE PROP 0.05% NASAL SPRAY 16 GM (FLONASE) NARES SCH (09:00)
[2021-12-02] MEDS: OLANZapine 5 MG TAB PO SCH ×2 (09:00→20:45)
[2021-12-02] MEDS: LEVEMIR (INSULIN DETEMIR) 1 UNITS/0.01ML SC SCH ×2 (09:17→20:49)
[2021-12-02] MEDS: GABAPENTIN 100 MG CAP PO SCH ×3 (09:19→20:45)
[2021-12-02] MEDS: OMEPRAZOLE 20MG CAP PO SCH (09:19)
[2021-12-02] MEDS: FOLIC ACID 1 MG TAB PO SCH (09:19)
[2021-12-02] MEDS: methocarbamoL 500 MG TAB PO SCH ×2 (09:19→20:45)
[2021-12-02] MEDS: METOPROLOL SUCC (TopROL XL) 50MG **XL** TAB PO SCH (09:19)
[2021-12-02] MEDS: ASPIRIN 81MG ENTERIC TABLET PO SCH (09:19)
[2021-12-02] MEDS: FERROUS SULFATE 325MG TAB PO SCH (09:20)
[2021-12-02] MEDS: CETIRIZINE (ZyrTEC) 10 MG TAB PO SCH (09:20)
[2021-12-02] MEDS: LOSARTAN 50MG TABLET PO SCH (09:20)
[2021-12-02] MEDS: LORazepam 1 MG TAB PO PRN (10:44)
[2021-12-02] MEDS ORDERED: LORazepam 1 MG TAB PO STA (11:58)
[2021-12-02 17:14] VITALS: BP 141/87
[2021-12-02] MEDS: LITHIUM CARBONATE 300 MG CAP PO SCH (20:45)
[2021-12-02] MEDS: ATORVASTATIN 20 MG TAB PO SCH (20:45)
[2021-12-02] MEDS: amLODIPine 5 MG TAB PO SCH (20:48)
[2021-12-03] MEDS: LORazepam 1 MG TAB PO PRN ×2 (02:56→22:30)
[2021-12-03] MEDS: LEVOTHYROXINE 88MCG TABLET (0.088 MG) PO SCH (06:20)
[2021-12-03 06:26] VITALS: BP 146/65
[2021-12-03] MEDS: HumaLOG INSULIN (NovoLOG) PER UNIT SC SCH ×4 (06:33→22:03)
[2021-12-03] MEDS: FERROUS SULFATE 325MG TAB PO SCH (09:38)
[2021-12-03] MEDS: OMEPRAZOLE 20MG CAP PO SCH (09:38)
[2021-12-03] MEDS: GABAPENTIN 100 MG CAP PO SCH ×3 (09:38→22:11)
[2021-12-03] MEDS: FOLIC ACID 1 MG TAB PO SCH (09:38)
[2021-12-03] MEDS: methocarbamoL 500 MG TAB PO SCH ×2 (09:38→22:09)
[2021-12-03] MEDS: ASPIRIN 81MG ENTERIC TABLET PO SCH (09:38)
[2021-12-03] MEDS: OLANZapine 5 MG TAB PO SCH ×2 (09:38→22:11)
[2021-12-03] MEDS: FLUTICASONE PROP 0.05% NASAL SPRAY 16 GM (FLONASE) NARES SCH (09:49)
[2021-12-03] MEDS: CETIRIZINE (ZyrTEC) 10 MG TAB PO SCH (09:51)
[2021-12-03] MEDS: LOSARTAN 50MG TABLET PO SCH (09:51)
[2021-12-03] MEDS: METOPROLOL SUCC (TopROL XL) 50MG **XL** TAB PO SCH (09:52)
[2021-12-03] MEDS: LEVEMIR (INSULIN DETEMIR) 1 UNITS/0.01ML SC SCH ×2 (09:58→22:09)
[2021-12-03 16:12] VITALS: BP 140/68
[2021-12-03] MEDS: LITHIUM CARBONATE 300 MG CAP PO SCH (22:09)
[2021-12-03] MEDS: MECLIZINE 25 MG TABLET PO PRN (22:10)
[2021-12-03] MEDS: amLODIPine 5 MG TAB PO SCH (22:11)
[2021-12-03] MEDS: ATORVASTATIN 20 MG TAB PO SCH (22:11)
[2021-12-04] MEDS: LEVOTHYROXINE 88MCG TABLET (0.088 MG) PO SCH (06:32)
[2021-12-04] MEDS: HumaLOG INSULIN (NovoLOG) PER UNIT SC SCH ×4 (06:33→20:21)
[2021-12-04 06:35] VITALS: BP 165/56
[2021-12-04] MEDS: FERROUS SULFATE 325MG TAB PO SCH (08:45)
[2021-12-04] MEDS: OLANZapine 5 MG TAB PO SCH ×2 (08:45→20:16)
[2021-12-04] MEDS: methocarbamoL 500 MG TAB PO SCH ×2 (08:45→20:15)
[2021-12-04] MEDS: FOLIC ACID 1 MG TAB PO SCH (08:45)
[2021-12-04] MEDS: ASPIRIN 81MG ENTERIC TABLET PO SCH (08:46)
[2021-12-04] MEDS: METOPROLOL SUCC (TopROL XL) 50MG **XL** TAB PO SCH (08:46)
[2021-12-04] MEDS: LOSARTAN 50MG TABLET PO SCH (08:46)
[2021-12-04] MEDS: OMEPRAZOLE 20MG CAP PO SCH (08:46)
[2021-12-04] MEDS: GABAPENTIN 100 MG CAP PO SCH ×3 (08:46→20:16)
[2021-12-04] MEDS: LEVEMIR (INSULIN DETEMIR) 1 UNITS/0.01ML SC SCH ×2 (08:46→20:21)
[2021-12-04] MEDS: FLUTICASONE PROP 0.05% NASAL SPRAY 16 GM (FLONASE) NARES SCH (08:47)
[2021-12-04] MEDS: CETIRIZINE (ZyrTEC) 10 MG TAB PO SCH (08:47)
[2021-12-04] MEDS: MECLIZINE 25 MG TABLET PO PRN (09:00)
[2021-12-04] MEDS: LORazepam 1 MG TAB PO PRN ×2 (09:00→21:00)
[2021-12-04] MEDS: guaiFENesin ER 600 MG TAB PO SCH ×2 (11:29→20:16)
[2021-12-04] MEDS: ACETAMINOPHEN TAB 650MG DOSE (2X325MG) PO PRN (16:49)
[2021-12-04 17:48] VITALS: BP 139/79
[2021-12-04] MEDS: LITHIUM CARBONATE 300 MG CAP PO SCH (20:15)
[2021-12-04] MEDS: ATORVASTATIN 20 MG TAB PO SCH (20:16)
[2021-12-04] MEDS: amLODIPine 5 MG TAB PO SCH (20:20)
[2021-12-04] MEDS: traZODone 50 MG TAB PO PRN (20:58)
[2021-12-05] MEDS: ACETAMINOPHEN TAB 650MG DOSE (2X325MG) PO PRN (02:19)
[2021-12-05] MEDS: LEVOTHYROXINE 88MCG TABLET (0.088 MG) PO SCH (06:25)
[2021-12-05] MEDS: HumaLOG INSULIN (NovoLOG) PER UNIT SC SCH ×4 (06:31→21:00)
[2021-12-05 06:48] VITALS: BP 149/83
[2021-12-05] MEDS: methocarbamoL 500 MG TAB PO SCH ×2 (09:02→21:42)
[2021-12-05] MEDS: GABAPENTIN 100 MG CAP PO SCH ×3 (09:02→21:42)
[2021-12-05] MEDS: OMEPRAZOLE 20MG CAP PO SCH (09:02)
[2021-12-05] MEDS: CETIRIZINE (ZyrTEC) 10 MG TAB PO SCH (09:02)
[2021-12-05] MEDS: ASPIRIN 81MG ENTERIC TABLET PO SCH (09:02)
[2021-12-05] MEDS: FOLIC ACID 1 MG TAB PO SCH (09:03)
[2021-12-05] MEDS: OLANZapine 5 MG TAB PO SCH ×2 (09:03→21:42)
[2021-12-05] MEDS: METOPROLOL SUCC (TopROL XL) 50MG **XL** TAB PO SCH (09:03)
[2021-12-05] MEDS: LOSARTAN 50MG TABLET PO SCH (09:03)
[2021-12-05] MEDS: FERROUS SULFATE 325MG TAB PO SCH (09:03)
[2021-12-05] MEDS: guaiFENesin ER 600 MG TAB PO SCH ×2 (09:03→21:42)
[2021-12-05] MEDS: FLUTICASONE PROP 0.05% NASAL SPRAY 16 GM (FLONASE) NARES SCH (09:03)
[2021-12-05] MEDS: LEVEMIR (INSULIN DETEMIR) 1 UNITS/0.01ML SC SCH ×2 (09:04→22:16)
[2021-12-05] MEDS: LORazepam 1 MG TAB PO PRN ×2 (09:14→21:41)
[2021-12-05 17:48] VITALS: BP 144/80
[2021-12-05] MEDS: LITHIUM CARBONATE 300 MG CAP PO SCH (21:42)
[2021-12-05] MEDS: amLODIPine 5 MG TAB PO SCH (21:43)
[2021-12-05] MEDS: ATORVASTATIN 20 MG TAB PO SCH (21:43)
[2021-12-06] MEDS: OLANZapine ORAL DISINTEGRATING TAB 5MG PO PRN (00:12)
[2021-12-06] MEDS: traZODone 50 MG TAB PO PRN ×2 (00:12→22:02)
[2021-12-06] MEDS: ACETAMINOPHEN TAB 650MG DOSE (2X325MG) PO PRN ×3 (00:13→22:02)
[2021-12-06] MEDS: LEVOTHYROXINE 88MCG TABLET (0.088 MG) PO SCH (05:40)
[2021-12-06] MEDS: HumaLOG INSULIN (NovoLOG) PER UNIT SC SCH ×4 (06:34→21:00)
[2021-12-06 07:00] VITALS: BP 140/78
[2021-12-06] MEDS: methocarbamoL 500 MG TAB PO SCH ×2 (08:31→21:08)
[2021-12-06] MEDS: LOSARTAN 50MG TABLET PO SCH (08:31)
[2021-12-06] MEDS: OMEPRAZOLE 20MG CAP PO SCH (08:32)
[2021-12-06] MEDS: ASPIRIN 81MG ENTERIC TABLET PO SCH (08:32)
[2021-12-06] MEDS: guaiFENesin ER 600 MG TAB PO SCH ×2 (08:32→21:08)
[2021-12-06] MEDS: GABAPENTIN 100 MG CAP PO SCH ×3 (08:32→21:08)
[2021-12-06] MEDS: CETIRIZINE (ZyrTEC) 10 MG TAB PO SCH (08:33)
[2021-12-06] MEDS: OLANZapine 5 MG TAB PO SCH ×2 (08:33→21:08)
[2021-12-06] MEDS: FOLIC ACID 1 MG TAB PO SCH (08:33)
[2021-12-06] MEDS: FERROUS SULFATE 325MG TAB PO SCH (08:33)
[2021-12-06] MEDS: METOPROLOL SUCC (TopROL XL) 50MG **XL** TAB PO SCH (08:34)
[2021-12-06] MEDS: MAALOX 30 ML SUSP *UDC PO PRN ×2 (08:34→21:52)
[2021-12-06] MEDS: FLUTICASONE PROP 0.05% NASAL SPRAY 16 GM (FLONASE) NARES SCH (08:35)
[2021-12-06] MEDS: LEVEMIR (INSULIN DETEMIR) 1 UNITS/0.01ML SC SCH ×2 (08:36→21:08)
[2021-12-06] MEDS: LORazepam 1 MG TAB PO PRN ×2 (10:23→21:09)
[2021-12-06 18:40] VITALS: BP 140/82
[2021-12-06] MEDS: LITHIUM CARBONATE 600MG CAP PO SCH (21:08)
[2021-12-06] MEDS: amLODIPine 5 MG TAB PO SCH (21:08)
[2021-12-06] MEDS: ATORVASTATIN 20 MG TAB PO SCH (21:09)
[2021-12-07 06:00] VITALS: BP 146/86
[2021-12-07] MEDS: LEVOTHYROXINE 88MCG TABLET (0.088 MG) PO SCH (07:17)
[2021-12-07] MEDS: HumaLOG INSULIN (NovoLOG) PER UNIT SC SCH ×4 (07:25→20:01)
[2021-12-07] MEDS: methocarbamoL 500 MG TAB PO SCH ×2 (08:59→19:57)
[2021-12-07] MEDS: ASPIRIN 81MG ENTERIC TABLET PO SCH (08:59)
[2021-12-07] MEDS: GABAPENTIN 100 MG CAP PO SCH ×3 (08:59→19:57)
[2021-12-07] MEDS: FOLIC ACID 1 MG TAB PO SCH (08:59)
[2021-12-07] MEDS: FERROUS SULFATE 325MG TAB PO SCH (08:59)
[2021-12-07] MEDS: OLANZapine 5 MG TAB PO SCH ×2 (08:59→19:58)
[2021-12-07] MEDS: CETIRIZINE (ZyrTEC) 10 MG TAB PO SCH (08:59)
[2021-12-07] MEDS: guaiFENesin ER 600 MG TAB PO SCH ×2 (08:59→19:59)
[2021-12-07] MEDS: LEVEMIR (INSULIN DETEMIR) 1 UNITS/0.01ML SC SCH ×2 (08:59→20:00)
[2021-12-07] MEDS: OMEPRAZOLE 20MG CAP PO SCH (08:59)
[2021-12-07] MEDS: FLUTICASONE PROP 0.05% NASAL SPRAY 16 GM (FLONASE) NARES SCH (09:00)
[2021-12-07] MEDS: METOPROLOL SUCC (TopROL XL) 50MG **XL** TAB PO SCH (09:00)
[2021-12-07] MEDS: LOSARTAN 50MG TABLET PO SCH (09:00)
[2021-12-07] MEDS: ACETAMINOPHEN TAB 650MG DOSE (2X325MG) PO PRN (17:39)
[2021-12-07 18:06] VITALS: BP 140/80
[2021-12-07] MEDS: ATORVASTATIN 20 MG TAB PO SCH (19:58)
[2021-12-07] MEDS: LITHIUM CARBONATE 600MG CAP PO SCH (19:58)
[2021-12-07] MEDS: amLODIPine 5 MG TAB PO SCH (19:58)
[2021-12-08] MEDS: LEVOTHYROXINE 88MCG TABLET (0.088 MG) PO SCH (06:19)
[2021-12-08 06:30] VITALS: BP 168/94
[2021-12-08] MEDS: ACETAMINOPHEN TAB 650MG DOSE (2X325MG) PO PRN ×2 (06:42→15:18)
[2021-12-08] MEDS: HumaLOG INSULIN (NovoLOG) PER UNIT SC SCH ×4 (06:44→21:00)
[2021-12-08] MEDS: OLANZapine 5 MG TAB PO SCH ×2 (09:20→20:04)
[2021-12-08] MEDS: OMEPRAZOLE 20MG CAP PO SCH (09:20)
[2021-12-08] MEDS: ASPIRIN 81MG ENTERIC TABLET PO SCH (09:20)
[2021-12-08] MEDS: FERROUS SULFATE 325MG TAB PO SCH (09:20)
[2021-12-08] MEDS: FOLIC ACID 1 MG TAB PO SCH (09:20)
[2021-12-08] MEDS: guaiFENesin ER 600 MG TAB PO SCH ×2 (09:20→20:04)
[2021-12-08] MEDS: methocarbamoL 500 MG TAB PO SCH ×2 (09:21→20:04)
[2021-12-08] MEDS: LOSARTAN 50MG TABLET PO SCH (09:21)
[2021-12-08] MEDS: CETIRIZINE (ZyrTEC) 10 MG TAB PO SCH (09:21)
[2021-12-08] MEDS: METOPROLOL SUCC (TopROL XL) 50MG **XL** TAB PO SCH (09:21)
[2021-12-08] MEDS: GABAPENTIN 100 MG CAP PO SCH ×3 (09:21→20:04)
[2021-12-08] MEDS: FLUTICASONE PROP 0.05% NASAL SPRAY 16 GM (FLONASE) NARES SCH (09:22)
[2021-12-08] MEDS: LEVEMIR (INSULIN DETEMIR) 1 UNITS/0.01ML SC SCH ×2 (09:32→20:03)
[2021-12-08] MEDS: LORazepam 1 MG TAB PO PRN (10:23)
[2021-12-08 18:00] VITALS: BP 132/82
[2021-12-08] MEDS: amLODIPine 5 MG TAB PO SCH (20:04)
[2021-12-08] MEDS: LITHIUM CARBONATE 600MG CAP PO SCH (20:04)
[2021-12-08] MEDS: ATORVASTATIN 20 MG TAB PO SCH (20:05)
[2021-12-08] MEDS: traZODone 50 MG TAB PO PRN (20:07)
[2021-12-09 06:25] VITALS: BP 129/81
[2021-12-09] MEDS: LEVOTHYROXINE 88MCG TABLET (0.088 MG) PO SCH (06:41)
[2021-12-09] MEDS: HumaLOG INSULIN (NovoLOG) PER UNIT SC SCH ×4 (06:42→20:27)
[2021-12-09] MEDS: ASPIRIN 81MG ENTERIC TABLET PO SCH (08:10)
[2021-12-09] MEDS: FERROUS SULFATE 325MG TAB PO SCH (08:11)
[2021-12-09] MEDS: guaiFENesin ER 600 MG TAB PO SCH ×2 (08:12→20:17)
[2021-12-09] MEDS: FOLIC ACID 1 MG TAB PO SCH (08:12)
[2021-12-09] MEDS: OMEPRAZOLE 20MG CAP PO SCH (08:12)
[2021-12-09] MEDS: FLUTICASONE PROP 0.05% NASAL SPRAY 16 GM (FLONASE) NARES SCH (08:12)
[2021-12-09] MEDS: CETIRIZINE (ZyrTEC) 10 MG TAB PO SCH (08:12)
[2021-12-09] MEDS: GABAPENTIN 100 MG CAP PO SCH ×3 (08:12→20:17)
[2021-12-09] MEDS: OLANZapine 5 MG TAB PO SCH ×2 (08:13→20:17)
[2021-12-09] MEDS: methocarbamoL 500 MG TAB PO SCH ×2 (08:13→20:17)
[2021-12-09] MEDS: LOSARTAN 50MG TABLET PO SCH (08:28)
[2021-12-09] MEDS: METOPROLOL SUCC (TopROL XL) 50MG **XL** TAB PO SCH (08:29)
[2021-12-09] MEDS: LEVEMIR (INSULIN DETEMIR) 1 UNITS/0.01ML SC SCH ×2 (08:32→20:30)
[2021-12-09] MEDS: ACETAMINOPHEN TAB 650MG DOSE (2X325MG) PO PRN ×2 (12:41→20:54)
[2021-12-09 18:56] VITALS: BP 118/72
[2021-12-09] MEDS: amLODIPine 5 MG TAB PO SCH (20:17)
[2021-12-09] MEDS: ATORVASTATIN 20 MG TAB PO SCH (20:17)
[2021-12-09] MEDS: LITHIUM CARBONATE 600MG CAP PO SCH (20:18)
[2021-12-09] MEDS: traZODone 50 MG TAB PO PRN (20:53)
[2021-12-10] MEDS: ACETAMINOPHEN TAB 650MG DOSE (2X325MG) PO PRN ×3 (03:30→22:52)
[2021-12-10] MEDS: LEVOTHYROXINE 88MCG TABLET (0.088 MG) PO SCH (05:50)
[2021-12-10] MEDS: HumaLOG INSULIN (NovoLOG) PER UNIT SC SCH ×4 (06:53→20:40)
[2021-12-10 06:55] VITALS: BP 125/60
[2021-12-10] MEDS: LORazepam 1 MG TAB PO PRN ×2 (06:58→22:51)
[2021-12-10] MEDS: OMEPRAZOLE 20MG CAP PO SCH (09:52)
[2021-12-10] MEDS: METOPROLOL SUCC (TopROL XL) 50MG **XL** TAB PO SCH (09:52)
[2021-12-10] MEDS: guaiFENesin ER 600 MG TAB PO SCH ×2 (09:52→20:31)
[2021-12-10] MEDS: FOLIC ACID 1 MG TAB PO SCH (09:52)
[2021-12-10] MEDS: OLANZapine 5 MG TAB PO SCH ×2 (09:52→20:33)
[2021-12-10] MEDS: ASPIRIN 81MG ENTERIC TABLET PO SCH (09:52)
[2021-12-10] MEDS: FERROUS SULFATE 325MG TAB PO SCH (09:53)
[2021-12-10] MEDS: methocarbamoL 500 MG TAB PO SCH ×2 (09:53→20:30)
[2021-12-10] MEDS: CETIRIZINE (ZyrTEC) 10 MG TAB PO SCH (09:53)
[2021-12-10] MEDS: LOSARTAN 50MG TABLET PO SCH (09:53)
[2021-12-10] MEDS: GABAPENTIN 100 MG CAP PO SCH ×3 (09:53→20:33)
[2021-12-10] MEDS: FLUTICASONE PROP 0.05% NASAL SPRAY 16 GM (FLONASE) NARES SCH (09:54)
[2021-12-10] MEDS: LEVEMIR (INSULIN DETEMIR) 1 UNITS/0.01ML SC SCH ×2 (09:55→20:42)
[2021-12-10 19:46] VITALS: BP 151/77
[2021-12-10] MEDS: LITHIUM CARBONATE 600MG CAP PO SCH (20:30)
[2021-12-10] MEDS: traZODone 50 MG TAB PO PRN (20:31)
[2021-12-10] MEDS: ATORVASTATIN 20 MG TAB PO SCH (20:32)
[2021-12-10] MEDS: amLODIPine 5 MG TAB PO SCH (20:37)
[2021-12-11] MEDS: LEVOTHYROXINE 88MCG TABLET (0.088 MG) PO SCH (06:04)
[2021-12-11] MEDS: ACETAMINOPHEN TAB 650MG DOSE (2X325MG) PO PRN (06:12)
[2021-12-11] MEDS: OLANZapine ORAL DISINTEGRATING TAB 5MG PO PRN (06:43)
[2021-12-11 06:53] VITALS: BP 137/84
[2021-12-11 06:59] VITALS: BP 149/84
[2021-12-11] MEDS: HumaLOG INSULIN (NovoLOG) PER UNIT SC SCH ×4 (07:15→21:25)
[2021-12-11] MEDS: FERROUS SULFATE 325MG TAB PO SCH (08:55)
[2021-12-11] MEDS: FLUTICASONE PROP 0.05% NASAL SPRAY 16 GM (FLONASE) NARES SCH (08:55)
[2021-12-11] MEDS: METOPROLOL SUCC (TopROL XL) 50MG **XL** TAB PO SCH (08:55)
[2021-12-11] MEDS: methocarbamoL 500 MG TAB PO SCH ×2 (08:55→21:17)
[2021-12-11] MEDS: CETIRIZINE (ZyrTEC) 10 MG TAB PO SCH (08:55)
[2021-12-11] MEDS: GABAPENTIN 100 MG CAP PO SCH ×3 (08:56→21:16)
[2021-12-11] MEDS: OMEPRAZOLE 20MG CAP PO SCH (08:56)
[2021-12-11] MEDS: OLANZapine 5 MG TAB PO SCH ×2 (08:56→21:16)
[2021-12-11] MEDS: ASPIRIN 81MG ENTERIC TABLET PO SCH (08:56)
[2021-12-11] MEDS: FOLIC ACID 1 MG TAB PO SCH (08:56)
[2021-12-11] MEDS: guaiFENesin ER 600 MG TAB PO SCH ×2 (08:57→21:16)
[2021-12-11] MEDS: LOSARTAN 50MG TABLET PO SCH (08:58)
[2021-12-11] MEDS: LEVEMIR (INSULIN DETEMIR) 1 UNITS/0.01ML SC SCH ×2 (09:02→21:26)
[2021-12-11 20:19] VITALS: BP 145/79
[2021-12-11] MEDS: LITHIUM CARBONATE 600MG CAP PO SCH (21:16)
[2021-12-11] MEDS: ATORVASTATIN 20 MG TAB PO SCH (21:16)
[2021-12-11] MEDS: PRAZOSIN 1 MG CAP PO SCH (21:23)
[2021-12-11] MEDS: amLODIPine 5 MG TAB PO SCH (21:23)
[2021-12-11] MEDS: traZODone 50 MG TAB PO PRN (21:28)
[2021-12-12] MEDS: ACETAMINOPHEN TAB 650MG DOSE (2X325MG) PO PRN ×3 (01:38→19:11)
[2021-12-12] MEDS: LORazepam 1 MG TAB PO PRN (02:03)
[2021-12-12] MEDS: OLANZapine ORAL DISINTEGRATING TAB 5MG PO PRN ×2 (06:38→23:07)
[2021-12-12] MEDS: LEVOTHYROXINE 88MCG TABLET (0.088 MG) PO SCH (06:38)
[2021-12-12] MEDS: HumaLOG INSULIN (NovoLOG) PER UNIT SC SCH ×4 (06:42→20:33)
[2021-12-12 06:47] VITALS: BP 146/71
[2021-12-12] MEDS: LEVEMIR (INSULIN DETEMIR) 1 UNITS/0.01ML SC SCH ×2 (08:09→20:32)
[2021-12-12] MEDS: FLUTICASONE PROP 0.05% NASAL SPRAY 16 GM (FLONASE) NARES SCH (08:10)
[2021-12-12] MEDS: ASPIRIN 81MG ENTERIC TABLET PO SCH (08:10)
[2021-12-12] MEDS: LOSARTAN 50MG TABLET PO SCH (08:10)
[2021-12-12] MEDS: GABAPENTIN 100 MG CAP PO SCH ×3 (08:10→20:34)
[2021-12-12] MEDS: guaiFENesin ER 600 MG TAB PO SCH ×2 (08:10→20:32)
[2021-12-12] MEDS: FOLIC ACID 1 MG TAB PO SCH (08:10)
[2021-12-12] MEDS: OMEPRAZOLE 20MG CAP PO SCH (08:10)
[2021-12-12] MEDS: FERROUS SULFATE 325MG TAB PO SCH (08:11)
[2021-12-12] MEDS: methocarbamoL 500 MG TAB PO SCH ×2 (08:11→20:33)
[2021-12-12] MEDS: OLANZapine 5 MG TAB PO SCH ×2 (08:11→20:34)
[2021-12-12] MEDS: CETIRIZINE (ZyrTEC) 10 MG TAB PO SCH (08:11)
[2021-12-12] MEDS: METOPROLOL SUCC (TopROL XL) 50MG **XL** TAB PO SCH (08:11)
[2021-12-12 16:21] VITALS: BP 122/59
[2021-12-12] MEDS: traZODone 50 MG TAB PO PRN (20:32)
[2021-12-12] MEDS: ATORVASTATIN 20 MG TAB PO SCH (20:32)
[2021-12-12] MEDS: PRAZOSIN 1 MG CAP PO SCH (20:32)
[2021-12-12] MEDS: LITHIUM CARBONATE 600MG CAP PO SCH (20:33)
[2021-12-12] MEDS: amLODIPine 5 MG TAB PO SCH (20:33)
[2021-12-13] MEDS: LEVOTHYROXINE 88MCG TABLET (0.088 MG) PO SCH (05:35)
[2021-12-13] MEDS: ACETAMINOPHEN TAB 650MG DOSE (2X325MG) PO PRN (05:36)
[2021-12-13] MEDS: OLANZapine ORAL DISINTEGRATING TAB 5MG PO PRN (05:44)
[2021-12-13 06:17] VITALS: BP 132/85
[2021-12-13] MEDS: HumaLOG INSULIN (NovoLOG) PER UNIT SC SCH (06:32)
[2021-12-13] MEDS ORDERED: OMEP-173 PO (08:14)
[2021-12-13] MEDS ORDERED: LEVO88TA3 PO (08:14)
[2021-12-13] MEDS ORDERED: ASPI-551 PO (08:14)
[2021-12-13] MEDS ORDERED: LITH600C PO (08:14)
[2021-12-13] MEDS ORDERED: OLAN1TAB16 PO (08:14)
[2021-12-13] MEDS ORDERED: ATOR40TA75 PO (08:14)
[2021-12-13] MEDS ORDERED: AMLO1TAB24 PO (08:14)
[2021-12-13] MEDS ORDERED: FLON1SPR NARES (08:14)
[2021-12-13] MEDS ORDERED: LORA-674 PO (08:14)
[2021-12-13] MEDS ORDERED: GABA-1171 PO (08:14)
[2021-12-13] MEDS ORDERED: METO1TAB7 PO (08:14)
[2021-12-13] MEDS ORDERED: METH-1164 PO (08:14)
[2021-12-13] MEDS ORDERED: MINI1CAP PO (08:14)
[2021-12-13 08:26] VITALS: BP 132/85
[2021-12-13] MEDS: LEVEMIR (INSULIN DETEMIR) 1 UNITS/0.01ML SC SCH (08:26)
[2021-12-13] MEDS: methocarbamoL 500 MG TAB PO SCH (08:26)
[2021-12-13] MEDS: OMEPRAZOLE 20MG CAP PO SCH (08:26)
[2021-12-13] MEDS: ASPIRIN 81MG ENTERIC TABLET PO SCH (08:26)
[2021-12-13] MEDS: FERROUS SULFATE 325MG TAB PO SCH (08:26)
[2021-12-13] MEDS: FOLIC ACID 1 MG TAB PO SCH (08:26)
[2021-12-13] MEDS: METOPROLOL SUCC (TopROL XL) 50MG **XL** TAB PO SCH (08:26)
[2021-12-13] MEDS: guaiFENesin ER 600 MG TAB PO SCH (08:26)
[2021-12-13] MEDS: FLUTICASONE PROP 0.05% NASAL SPRAY 16 GM (FLONASE) NARES SCH (08:26)
[2021-12-13] MEDS: LOSARTAN 50MG TABLET PO SCH (08:27)
[2021-12-13] MEDS: CETIRIZINE (ZyrTEC) 10 MG TAB PO SCH (08:27)
[2021-12-13] MEDS: OLANZapine 5 MG TAB PO SCH (08:27)
[2021-12-13] MEDS: GABAPENTIN 100 MG CAP PO SCH (08:27)
== END 2021-12-13 10:50 | disposition home or self-care (01) | DRG 753 ==
LOC: M PSY 19:00
PROVIDERS: ADMIT Psychiatry & Neurology Psychiatry; ATTEND Psychiatry & Neurology Psychiatry
DX: F31.73 Bipolar disorder, in partial remission, most recent episode manic (principal); F79 Unspecified intellectual disabilities; E11.9 Type 2 diabetes mellitus without complications; E66.01 Morbid (severe) obesity due to excess calories; K86.1 Other chronic pancreatitis; R45.851 Suicidal ideations; Z91.14 Patient's other noncompliance with medication regimen; F60.3 Borderline personality disorder; Z79.4 Long term (current) use of insulin; I10 Essential (primary) hypertension; E03.9 Hypothyroidism, unspecified; Z88.2 Allergy status to sulfonamides; Z88.8 Allergy status to other drugs, medicaments and biological substances; Z79.82 Long term (current) use of aspirin; Z79.899 Other long term (current) drug therapy

== ENCOUNTER 2021-12-14 04:21 | Emergency (ER) | payer MEDICAID, OTHER ==
[~2021-12-14] VITALS: Ht 165.1 cm; Wt 120.0 kg
[~2021-12-14 04:21] MED LIST changes: +ASPI-551 PO; +LITH600C PO; +MINI1CAP PO; +OLAN1TAB16 PO
[2021-12-14] MEDS ORDERED: HumuLIN R (REGULAR) INSULIN (NovoLIN R) **100U/ML** PER UNIT IV ONE ×2 (05:50→06:45)
[2021-12-14 05:55] LABS: BASO # 0.1 10^3/uL (0.0-0.2); BASO % 0.7 % (0.0-1.0); EOS # 0.2 10^3/uL (0.0-0.5); EOS % 2.4 % (0.0-3.0); HEMOGLOBIN 12.9 g/dl (12.0-15.5); MEAN CORPUSCULAR HEMOGLOBIN 28.7 pg (27.0-33.0); MEAN CORPUSCULAR HGB CONC 33.1 g/dl (32.0-36.5); MEAN CORPUSCULAR VOLUME 86.9 fl (80.0-96.0); MONO # 0.5 10^3/uL (0.0-0.8); MONO % 7.3 % (2.0-8.0); NEUTROPHILS % 59.3 % (36.0-66.0); PLATELET COUNT, AUTOMATED 287 10^3/uL (150-450); RED BLOOD COUNT 4.49 10^6/uL (4.00-5.40); WHITE BLOOD COUNT 6.7 10^3/uL (4.0-10.0)
[2021-12-14 05:58] LABS: ACETONE/KETONE 0.78 MG/DL (<2.81); ALBUMIN 3.5 GM/DL (3.2-5.2); ALT/SGPT 51 U/L (12-78); BILIRUBIN,TOTAL 0.4 MG/DL (0.2-1.0); BLOOD UREA NITROGEN 11 MG/DL (7-18); CALCIUM LEVEL 8.7 MG/DL (8.5-10.1); CARBON DIOXIDE LEVEL 28 MEQ/L (21-32); CHLORIDE LEVEL 109 MEQ/L (98-107); CREATININE FOR GFR 0.79 MG/DL (0.55-1.30); GLOMERULAR FILTRATION RATE > 60.0 (>58); GLUCOSE, FASTING 330 MG/DL (70-100); LIPASE 143 U/L (73-393); POTASSIUM SERUM 3.5 MEQ/L (3.5-5.1); SODIUM LEVEL 141 MEQ/L (136-145); TOTAL PROTEIN 6.5 GM/DL (6.4-8.2)
[2021-12-14 08:18] VITALS: BP 152/82
== END 2021-12-14 08:20 | disposition home or self-care (01) ==
LOC: M ED 04:21
DX: E11.65 Type 2 diabetes mellitus with hyperglycemia (principal); I10 Essential (primary) hypertension; J45.909 Unspecified asthma, uncomplicated; F31.9 Bipolar disorder, unspecified; F41.9 Anxiety disorder, unspecified; E78.5 Hyperlipidemia, unspecified; G47.33 Obstructive sleep apnea (adult) (pediatric); Z79.899 Other long term (current) drug therapy; Z79.890 Hormone replacement therapy; Z79.82 Long term (current) use of aspirin; Z79.4 Long term (current) use of insulin; Z88.1 Allergy status to other antibiotic agents; Z88.2 Allergy status to sulfonamides; Z88.8 Allergy status to other drugs, medicaments and biological substances
CPT/HCPCS: 80053; 81001; 82010; 83690; 85025; 96374; 99284; J1815

== ENCOUNTER 2021-12-24 17:33 | Inpatient (IN) | payer MEDICAID, OTHER ==
[~2021-12-24] VITALS: Ht 170.2 cm; Wt 134.7 kg
[~2021-12-24 17:33] MED LIST changes: +BUPR-71 PO; -BUPR150T5 PO; -BUPR200T2; -BUPR200T2 PO; +BUPR200T41; +BUPR200T41 PO
[2021-12-24 19:55] LABS: HEMATOCRIT 35.4 % (36.0-47.0); HEMOGLOBIN 12.1 g/dl (12.0-15.5); MEAN CORPUSCULAR HEMOGLOBIN 29.5 pg (27.0-33.0); MEAN CORPUSCULAR HGB CONC 34.2 g/dl (32.0-36.5); MEAN CORPUSCULAR VOLUME 86.3 fl (80.0-96.0); PLATELET COUNT, AUTOMATED 318 10^3/uL (150-450); WHITE BLOOD COUNT 7.1 10^3/uL (4.0-10.0)
[2021-12-24 20:27] LABS: ALBUMIN 3.2 GM/DL (3.2-5.2); ALT/SGPT 36 U/L (12-78); BILIRUBIN,DIRECT 0.2 MG/DL (0.0-0.2); BILIRUBIN,TOTAL 0.6 MG/DL (0.2-1.0); BLOOD UREA NITROGEN 11 MG/DL (7-18); CALCIUM LEVEL 8.8 MG/DL (8.5-10.1); CARBON DIOXIDE LEVEL 34 MEQ/L (21-32); CHLORIDE LEVEL 108 MEQ/L (98-107); CREATININE FOR GFR 0.75 MG/DL (0.55-1.30); ETHYL ALCOHOL (ETHANOL) < 0.003 % (0.000-0.010); GLOMERULAR FILTRATION RATE > 60.0 (>58); GLUCOSE, FASTING 194 MG/DL (70-100); POTASSIUM SERUM 3.2 MEQ/L (3.5-5.1); SODIUM LEVEL 144 MEQ/L (136-145); TOTAL PROTEIN 6.3 GM/DL (6.4-8.2)
[2021-12-24 20:28] LABS: ACETAMINOPHEN LEVEL < 2.0 UG/ML (10.0-30.0); LITHIUM LEVEL < 0.20 MEQ/L (0.60-1.20); SALICYLATE LEVEL < 1.7 MG/DL (5.0-30.0)
[2021-12-24 20:34] LABS: AMPHETAMINES LEVEL URINE NEGATIVE (NEGATIVE); BARBITURATES URINE NEGATIVE (NEGATIVE); BENZODIAZEPINES URINE NEGATIVE (NEGATIVE); CANNABINOIDS URINE NEGATIVE (NEGATIVE); COCAINE METABOLITE URINE NEGATIVE (NEGATIVE); METHADONE URINE NEGATIVE (NEGATIVE); OPIATES URINE NEGATIVE (NEGATIVE); PHENCYCLIDINE URINE NEGATIVE (NEGATIVE)
[2021-12-24 20:38] LABS: RSV AMPLIFICATION NEGATIVE (NEGATIVE)
[2021-12-24] MEDS ORDERED: ACETAMINOPHEN TAB 650MG DOSE (2X325MG) PO ONE (20:55)
[2021-12-24] MEDS ORDERED: LORazepam 2 MG TAB PO ONE (20:55)
[2021-12-24] MEDS ORDERED: AMLO1TAB24 PO (21:05)
[2021-12-24] MEDS ORDERED: GABA-1171 PO (21:05)
[2021-12-24] MEDS ORDERED: CITA40TA7 PO (21:05)
[2021-12-24] MEDS ORDERED: ASPI-226 PO (21:05)
[2021-12-24] MEDS ORDERED: OLAN1TAB20 PO (21:05)
[2021-12-24] MEDS ORDERED: LITH600C PO (21:05)
[2021-12-24] MEDS ORDERED: PRAZ1CAP PO (21:05)
[2021-12-24] MEDS ORDERED: DULO1CAP5 PO (21:05)
[2021-12-24] MEDS ORDERED: PROP10TA56 PO (21:05)
[2021-12-24] MEDS ORDERED: METH-1164 PO (21:05)
[2021-12-24] MEDS ORDERED: FLUTISP (21:05)
[2021-12-24] MEDS ORDERED: SUCR1TAB56 PO (21:09)
[2021-12-24] MEDS ORDERED: LEVO88TA3 PO (21:09)
[2021-12-24] MEDS ORDERED: METO1TAB7 PO (21:09)
[2021-12-24] MEDS ORDERED: ATEN100T PO (21:09)
[2021-12-24] MEDS ORDERED: POTA1TAB23 PO (21:16)
[2021-12-24] MEDS ORDERED: OMEP-173 PO (21:16)
[2021-12-24] MEDS ORDERED: ATOR40TA75 PO (21:16)
[2021-12-24] MEDS ORDERED: DULO1CAP6 PO (21:16)
[2021-12-24] MEDS ORDERED: LORA-930 PO (21:16)
[2021-12-24] MEDS ORDERED: MED REC COMMENT (21:30)
[2021-12-24] MEDS ORDERED: HOME MED LIST COMPLETE! XX SCH (21:30)
[2021-12-24] MEDS ORDERED: OLANZapine 10 MG TAB PO ONE (23:25)
[2021-12-25] MEDS ORDERED: POTASSIUM CHLORIDE 10MEQ SR TABLET PO ONE (07:35)
[2021-12-25] MEDS ORDERED: methocarbamoL 500 MG TAB PO ONE (07:55)
[2021-12-25] MEDS ORDERED: OLANZapine 10 MG TAB PO ONE (21:50)
[2021-12-26] MEDS ORDERED: HALOPERIDOL 5MG/ML VIAL (J1630 PER 1) IM ONE (04:35)
[2021-12-26] MEDS ORDERED: LORazepam 2 MG/ML VIAL IM ONE (04:35)
[2021-12-26] MEDS ORDERED: diphenhydrAMINE 50MG/ML VIAL (J1200) IM ONE (04:35)
[2021-12-26] MEDS ORDERED: LEVOTHYROXINE 88MCG TABLET (0.088 MG) PO SCH (06:00)
[2021-12-26] MEDS ORDERED: methocarbamoL 500 MG TAB PO ONE (07:25)
[2021-12-26] MEDS ORDERED: methocarbamoL 500 MG TAB PO PRN (07:40)
[2021-12-26] MEDS ORDERED: ASPIRIN 325 MG TAB PO ONE (09:00)
[2021-12-26] MEDS ORDERED: METOPROLOL SUCC (TopROL XL) 50MG **XL** TAB PO SCH (09:00)
[2021-12-26] MEDS ORDERED: ASPIRIN 81MG ENTERIC TABLET PO SCH (09:00)
[2021-12-26] MEDS ORDERED: LOSARTAN 50MG TABLET PO SCH (09:00)
[2021-12-26] MEDS ORDERED: OLANZapine 5 MG TAB PO ONE (09:00)
[2021-12-26] MEDS ORDERED: FOLIC ACID 1 MG TAB PO SCH (09:00)
[2021-12-26] MEDS ORDERED: METOPROLOL SUCC (TopROL XL) 50MG **XL** TAB PO ONE (09:00)
[2021-12-26] MEDS ORDERED: DULoxetine 30MG CAPSULE (CYMBALTA) PO ONE (09:00)
[2021-12-26] MEDS ORDERED: LOSARTAN 50MG TABLET PO ONE (09:00)
[2021-12-26] MEDS ORDERED: LEVEMIR (INSULIN DETEMIR) 1 UNITS/0.01ML SC ONE ×2 (09:00→21:00)
[2021-12-26] MEDS ORDERED: DULoxetine 30MG CAPSULE (CYMBALTA) PO SCH (09:00)
[2021-12-26] MEDS ORDERED: GABAPENTIN 100 MG CAP PO SCH (09:00)
[2021-12-26] MEDS ORDERED: LORATADINE 10 MG TAB PO ONE (09:00)
[2021-12-26] MEDS ORDERED: LORATADINE 10 MG TAB PO SCH (09:00)
[2021-12-26] MEDS ORDERED: FOLIC ACID 1 MG TAB PO ONE (09:00)
[2021-12-26] MEDS ORDERED: GABAPENTIN 100 MG CAP PO ONE (09:00)
[2021-12-26] MEDS ORDERED: VITAMIN D 1,000 INTERNATIONAL UNITS TABLET PO SCH ×2 (09:00)
[2021-12-26] MEDS ORDERED: LEVEMIR (INSULIN DETEMIR) 1 UNITS/0.01ML SC SCH ×2 (09:00→21:00)
[2021-12-26] MEDS ORDERED: FERROUS SULFATE 325MG TAB PO SCH ×2 (09:00)
[2021-12-26] MEDS ORDERED: OLANZapine 5 MG TAB PO SCH (09:00)
[2021-12-26] MEDS: HumaLOG INSULIN (NovoLOG) PER UNIT SC SCH ×4 (09:36→21:00)
[2021-12-26] MEDS ORDERED: HumaLOG INSULIN (NovoLOG) PER UNIT SC SCH ×4 (12:00→21:00)
[2021-12-26] MEDS ORDERED: MAALOX 30 ML SUSP *UDC PO PRN (13:15)
[2021-12-26] MEDS ORDERED: ALBUTEROL 90 MCG/ACT 8GM HFA INHALER INH PRN (13:15)
[2021-12-26] MEDS ORDERED: MOM 30ML SUSPENSION UDC PO PRN (13:15)
[2021-12-26] MEDS ORDERED: GLUCAGON INJ 1MG VIAL SC PRN (14:25)
[2021-12-26] MEDS ORDERED: GLUCOSE 4GM CHEW TABLET PO PRN (14:25)
[2021-12-26] MEDS: GABAPENTIN 100 MG CAP PO SCH ×2 (16:55→21:31)
[2021-12-26 18:48] VITALS: BP 152/69
[2021-12-26] MEDS ORDERED: CitaloPRAM (CeleXA) 20 MG TAB PO ONE (21:00)
[2021-12-26] MEDS ORDERED: amLODIPine 5 MG TAB PO SCH (21:00)
[2021-12-26] MEDS ORDERED: PRAZOSIN 1 MG CAP PO SCH ×2 (21:00)
[2021-12-26] MEDS ORDERED: LITHIUM CARBONATE 600MG CAP PO SCH (21:00)
[2021-12-26] MEDS ORDERED: ATORVASTATIN 20 MG TAB PO ONE (21:00)
[2021-12-26] MEDS ORDERED: CitaloPRAM (CeleXA) 20 MG TAB PO SCH (21:00)
[2021-12-26] MEDS ORDERED: LITHIUM CARBONATE 600MG CAP PO ONE (21:00)
[2021-12-26] MEDS ORDERED: amLODIPine 5 MG TAB PO ONE (21:00)
[2021-12-26] MEDS ORDERED: ATORVASTATIN 20 MG TAB PO SCH (21:00)
[2021-12-26] MEDS: ATORVASTATIN 20 MG TAB PO SCH (21:30)
[2021-12-26] MEDS: LITHIUM CARBONATE 600MG CAP PO SCH (21:34)
[2021-12-26] MEDS: CitaloPRAM (CeleXA) 20 MG TAB PO SCH (21:34)
[2021-12-26] MEDS: OLANZapine 5 MG TAB PO SCH (21:34)
[2021-12-26] MEDS: amLODIPine 5 MG TAB PO SCH (21:35)
[2021-12-26] MEDS: PRAZOSIN 1 MG CAP PO SCH (21:35)
[2021-12-26] MEDS: LEVEMIR (INSULIN DETEMIR) 1 UNITS/0.01ML SC SCH (21:36)
[2021-12-27] MEDS: OLANZapine ORAL DISINTEGRATING TAB 5MG PO PRN (00:15)
[2021-12-27] MEDS: traZODone 50 MG TAB PO PRN ×2 (00:15→20:38)
[2021-12-27] MEDS: LEVOTHYROXINE 88MCG TABLET (0.088 MG) PO SCH (05:46)
[2021-12-27] MEDS ORDERED: LEVOTHYROXINE 88MCG TABLET (0.088 MG) PO SCH (06:00)
[2021-12-27 06:32] VITALS: BP 162/77
[2021-12-27] MEDS: HumaLOG INSULIN (NovoLOG) PER UNIT SC SCH ×4 (06:39→20:31)
[2021-12-27] MEDS: LEVEMIR (INSULIN DETEMIR) 1 UNITS/0.01ML SC SCH ×2 (08:12→20:36)
[2021-12-27] MEDS: LOSARTAN 50MG TABLET PO SCH (08:12)
[2021-12-27] MEDS: VITAMIN D 1,000 INTERNATIONAL UNITS TABLET PO SCH (08:12)
[2021-12-27] MEDS: FOLIC ACID 1 MG TAB PO SCH (08:13)
[2021-12-27] MEDS: ASPIRIN 81MG ENTERIC TABLET PO SCH (08:13)
[2021-12-27] MEDS: FERROUS SULFATE 325MG TAB PO SCH (08:13)
[2021-12-27] MEDS: DULoxetine 30MG CAPSULE (CYMBALTA) PO SCH (08:13)
[2021-12-27] MEDS: OMEPRAZOLE 20MG CAP PO SCH (08:13)
[2021-12-27] MEDS: METOPROLOL SUCC (TopROL XL) 50MG **XL** TAB PO SCH (08:13)
[2021-12-27] MEDS: GABAPENTIN 100 MG CAP PO SCH ×3 (08:14→20:36)
[2021-12-27] MEDS: OLANZapine 5 MG TAB PO SCH ×2 (08:14→20:37)
[2021-12-27] MEDS ORDERED: DULoxetine 20 MG CAP (CYMBALTA) PO SCH (09:00)
[2021-12-27] MEDS: LORATADINE 10 MG TAB PO SCH (11:27)
[2021-12-27] MEDS: FLUTICASONE PROP 0.05% NASAL SPRAY 16 GM (FLONASE) SCH (11:27)
[2021-12-27] MEDS ORDERED: POTASSIUM CHLORIDE 10MEQ SR TABLET PO ONE (13:30)
[2021-12-27] MEDS: FUROSEMIDE 20 MG TAB PO SCH (14:17)
[2021-12-27 16:31] VITALS: BP 144/79
[2021-12-27] MEDS: CitaloPRAM (CeleXA) 20 MG TAB PO SCH (20:36)
[2021-12-27] MEDS: amLODIPine 5 MG TAB PO SCH (20:37)
[2021-12-27] MEDS: methocarbamoL 500 MG TAB PO PRN (20:37)
[2021-12-27] MEDS: ATORVASTATIN 20 MG TAB PO SCH (20:37)
[2021-12-27] MEDS: PRAZOSIN 1 MG CAP PO SCH (20:37)
[2021-12-27] MEDS: LITHIUM CARBONATE 600MG CAP PO SCH (20:37)
[2021-12-28] MEDS: OLANZapine ORAL DISINTEGRATING TAB 5MG PO PRN ×2 (04:06→17:44)
[2021-12-28] MEDS: LEVOTHYROXINE 88MCG TABLET (0.088 MG) PO SCH (05:45)
[2021-12-28 06:55] VITALS: BP 131/80
[2021-12-28] MEDS: FLUTICASONE PROP 0.05% NASAL SPRAY 16 GM (FLONASE) SCH (08:32)
[2021-12-28] MEDS: LEVEMIR (INSULIN DETEMIR) 1 UNITS/0.01ML SC SCH ×2 (08:33→20:34)
[2021-12-28] MEDS: HumaLOG INSULIN (NovoLOG) PER UNIT SC SCH ×4 (08:33→20:30)
[2021-12-28] MEDS: OLANZapine 5 MG TAB PO SCH (08:33)
[2021-12-28] MEDS: VITAMIN D 1,000 INTERNATIONAL UNITS TABLET PO SCH (08:34)
[2021-12-28] MEDS: OMEPRAZOLE 20MG CAP PO SCH (08:34)
[2021-12-28] MEDS: FOLIC ACID 1 MG TAB PO SCH (08:34)
[2021-12-28] MEDS: ASPIRIN 81MG ENTERIC TABLET PO SCH (08:34)
[2021-12-28] MEDS: LOSARTAN 50MG TABLET PO SCH (08:35)
[2021-12-28] MEDS: LORATADINE 10 MG TAB PO SCH (08:36)
[2021-12-28] MEDS: GABAPENTIN 100 MG CAP PO SCH ×3 (08:36→20:17)
[2021-12-28] MEDS: FERROUS SULFATE 325MG TAB PO SCH (08:36)
[2021-12-28] MEDS: DULoxetine 30MG CAPSULE (CYMBALTA) PO SCH (08:36)
[2021-12-28] MEDS: METOPROLOL SUCC (TopROL XL) 50MG **XL** TAB PO SCH (08:37)
[2021-12-28 10:41] LABS: BLOOD UREA NITROGEN 13 MG/DL (7-18); CALCIUM LEVEL 9.4 MG/DL (8.5-10.1); CARBON DIOXIDE LEVEL 27 MEQ/L (21-32); CHLORIDE LEVEL 109 MEQ/L (98-107); CREATININE FOR GFR 0.74 MG/DL (0.55-1.30); GLOMERULAR FILTRATION RATE > 60.0 (>58); GLUCOSE, FASTING 211 MG/DL (70-100); MAGNESIUM LEVEL 2.3 MG/DL (1.8-2.4); PHOSPHORUS LEVEL 3.8 MG/DL (2.5-4.9); SODIUM LEVEL 142 MEQ/L (136-145)
[2021-12-28] MEDS ORDERED: LORazepam 2 MG TAB PO ONE (11:45)
[2021-12-28 19:04] VITALS: BP 137/80
[2021-12-28] MEDS: traZODone 50 MG TAB PO PRN (20:16)
[2021-12-28] MEDS: ATORVASTATIN 20 MG TAB PO SCH (20:16)
[2021-12-28] MEDS: risperiDONE 3 MG TAB PO SCH (20:16)
[2021-12-28] MEDS: LITHIUM CARBONATE 600MG CAP PO SCH (20:17)
[2021-12-28] MEDS: PRAZOSIN 1 MG CAP PO SCH (20:17)
[2021-12-28] MEDS: amLODIPine 5 MG TAB PO SCH (20:17)
[2021-12-28] MEDS: CitaloPRAM (CeleXA) 20 MG TAB PO SCH (20:17)
[2021-12-29] MEDS: OLANZapine ORAL DISINTEGRATING TAB 5MG PO PRN ×3 (03:25→19:36)
[2021-12-29] MEDS: LEVOTHYROXINE 88MCG TABLET (0.088 MG) PO SCH (05:40)
[2021-12-29 06:38] VITALS: BP 132/82
[2021-12-29] MEDS: HumaLOG INSULIN (NovoLOG) PER UNIT SC SCH ×4 (07:06→20:24)
[2021-12-29] MEDS: LEVEMIR (INSULIN DETEMIR) 1 UNITS/0.01ML SC SCH ×2 (08:39→20:23)
[2021-12-29] MEDS: VITAMIN D 1,000 INTERNATIONAL UNITS TABLET PO SCH (08:40)
[2021-12-29] MEDS: METOPROLOL SUCC (TopROL XL) 50MG **XL** TAB PO SCH (08:42)
[2021-12-29] MEDS: ASPIRIN 81MG ENTERIC TABLET PO SCH (08:42)
[2021-12-29] MEDS: risperiDONE 3 MG TAB PO SCH ×2 (08:42→20:08)
[2021-12-29] MEDS: LORATADINE 10 MG TAB PO SCH (08:42)
[2021-12-29] MEDS: FLUTICASONE PROP 0.05% NASAL SPRAY 16 GM (FLONASE) SCH (08:42)
[2021-12-29] MEDS: DULoxetine 30MG CAPSULE (CYMBALTA) PO SCH (08:43)
[2021-12-29] MEDS: FOLIC ACID 1 MG TAB PO SCH (08:43)
[2021-12-29] MEDS: FERROUS SULFATE 325MG TAB PO SCH (08:43)
[2021-12-29] MEDS: OMEPRAZOLE 20MG CAP PO SCH (08:43)
[2021-12-29] MEDS: LOSARTAN 50MG TABLET PO SCH (08:43)
[2021-12-29] MEDS: GABAPENTIN 100 MG CAP PO SCH ×3 (08:43→20:08)
[2021-12-29 11:10] LABS: CHOLESTEROL RISK RATIO 2.888 (<5)
[2021-12-29] MEDS: FUROSEMIDE 20 MG TAB PO SCH (13:57)
[2021-12-29 18:49] VITALS: BP 140/82
[2021-12-29] MEDS: LITHIUM CARBONATE 600MG CAP PO SCH (20:08)
[2021-12-29] MEDS: amLODIPine 5 MG TAB PO SCH (20:08)
[2021-12-29] MEDS: PRAZOSIN 1 MG CAP PO SCH (20:08)
[2021-12-29] MEDS: ACETAMINOPHEN TAB 650MG DOSE (2X325MG) PO PRN (20:09)
[2021-12-29] MEDS: CitaloPRAM (CeleXA) 20 MG TAB PO SCH (20:10)
[2021-12-29] MEDS: ATORVASTATIN 20 MG TAB PO SCH (20:10)
[2021-12-30] MEDS ORDERED: OLANZapine ORAL DISINTEGRATING TAB 5MG PO ONE (01:50)
[2021-12-30] MEDS: ACETAMINOPHEN TAB 650MG DOSE (2X325MG) PO PRN ×2 (04:35→16:17)
[2021-12-30] MEDS: LEVOTHYROXINE 88MCG TABLET (0.088 MG) PO SCH (05:20)
[2021-12-30 06:12] VITALS: BP 139/64
[2021-12-30] MEDS: HumaLOG INSULIN (NovoLOG) PER UNIT SC SCH ×4 (06:23→20:56)
[2021-12-30] MEDS: DULoxetine 30MG CAPSULE (CYMBALTA) PO SCH (08:59)
[2021-12-30] MEDS: OMEPRAZOLE 20MG CAP PO SCH (08:59)
[2021-12-30] MEDS: VITAMIN D 1,000 INTERNATIONAL UNITS TABLET PO SCH (08:59)
[2021-12-30] MEDS: LOSARTAN 50MG TABLET PO SCH (08:59)
[2021-12-30] MEDS: risperiDONE 3 MG TAB PO SCH ×2 (08:59→21:00)
[2021-12-30] MEDS: GABAPENTIN 100 MG CAP PO SCH ×3 (08:59→20:59)
[2021-12-30] MEDS: LORATADINE 10 MG TAB PO SCH (08:59)
[2021-12-30] MEDS: FERROUS SULFATE 325MG TAB PO SCH (08:59)
[2021-12-30] MEDS: ASPIRIN 81MG ENTERIC TABLET PO SCH (08:59)
[2021-12-30] MEDS: FOLIC ACID 1 MG TAB PO SCH (08:59)
[2021-12-30] MEDS: METOPROLOL SUCC (TopROL XL) 50MG **XL** TAB PO SCH (09:00)
[2021-12-30] MEDS: FLUTICASONE PROP 0.05% NASAL SPRAY 16 GM (FLONASE) SCH (09:00)
[2021-12-30] MEDS: LEVEMIR (INSULIN DETEMIR) 1 UNITS/0.01ML SC SCH ×2 (09:00→20:58)
[2021-12-30] MEDS ORDERED: BENZTROPINE 1 MG TAB PO PRN (09:00)
[2021-12-30] MEDS: methocarbamoL 500 MG TAB PO PRN (12:02)
[2021-12-30] MEDS: LORazepam 2 MG TAB PO PRN ×2 (14:44→21:56)
[2021-12-30 16:42] VITALS: BP 162/86
[2021-12-30] MEDS: amLODIPine 5 MG TAB PO SCH (20:59)
[2021-12-30] MEDS: ATORVASTATIN 20 MG TAB PO SCH (20:59)
[2021-12-30] MEDS: CitaloPRAM (CeleXA) 20 MG TAB PO SCH (20:59)
[2021-12-30] MEDS: LITHIUM CARBONATE 600MG CAP PO SCH (20:59)
[2021-12-30] MEDS: PRAZOSIN 1 MG CAP PO SCH (21:03)
[2021-12-31] MEDS: LEVOTHYROXINE 88MCG TABLET (0.088 MG) PO SCH (05:46)
[2021-12-31] MEDS: HumaLOG INSULIN (NovoLOG) PER UNIT SC SCH ×4 (06:43→20:39)
[2021-12-31 06:58] VITALS: BP 145/90
[2021-12-31] MEDS: LEVEMIR (INSULIN DETEMIR) 1 UNITS/0.01ML SC SCH ×2 (08:44→20:47)
[2021-12-31] MEDS: METOPROLOL SUCC (TopROL XL) 50MG **XL** TAB PO SCH (08:45)
[2021-12-31] MEDS: ASPIRIN 81MG ENTERIC TABLET PO SCH (08:45)
[2021-12-31] MEDS: OMEPRAZOLE 20MG CAP PO SCH (08:45)
[2021-12-31] MEDS: LOSARTAN 50MG TABLET PO SCH (08:45)
[2021-12-31] MEDS: FLUTICASONE PROP 0.05% NASAL SPRAY 16 GM (FLONASE) SCH (08:45)
[2021-12-31] MEDS: LORATADINE 10 MG TAB PO SCH (08:46)
[2021-12-31] MEDS: DULoxetine 30MG CAPSULE (CYMBALTA) PO SCH (08:46)
[2021-12-31] MEDS: VITAMIN D 1,000 INTERNATIONAL UNITS TABLET PO SCH (08:46)
[2021-12-31] MEDS: GABAPENTIN 100 MG CAP PO SCH ×3 (08:46→20:40)
[2021-12-31] MEDS: FOLIC ACID 1 MG TAB PO SCH (08:46)
[2021-12-31] MEDS: FERROUS SULFATE 325MG TAB PO SCH (08:46)
[2021-12-31] MEDS: FUROSEMIDE 20 MG TAB PO SCH (13:41)
[2021-12-31 16:12] VITALS: BP 140/79
[2021-12-31] MEDS: ACETAMINOPHEN TAB 650MG DOSE (2X325MG) PO PRN (17:03)
[2021-12-31] MEDS: ATORVASTATIN 20 MG TAB PO SCH (20:40)
[2021-12-31] MEDS: CitaloPRAM (CeleXA) 20 MG TAB PO SCH (20:40)
[2021-12-31] MEDS: LITHIUM CARBONATE 600MG CAP PO SCH (20:40)
[2021-12-31] MEDS: risperiDONE 3 MG TAB PO SCH (20:40)
[2021-12-31] MEDS: amLODIPine 5 MG TAB PO SCH (20:42)
[2021-12-31] MEDS: PRAZOSIN 1 MG CAP PO SCH (20:43)
[2022-01-01] MEDS: LEVOTHYROXINE 88MCG TABLET (0.088 MG) PO SCH (05:53)
[2022-01-01 06:34] VITALS: BP 130/74
[2022-01-01] MEDS: HumaLOG INSULIN (NovoLOG) PER UNIT SC SCH ×4 (06:39→21:00)
[2022-01-01] MEDS: FERROUS SULFATE 325MG TAB PO SCH (08:39)
[2022-01-01] MEDS: FOLIC ACID 1 MG TAB PO SCH (08:39)
[2022-01-01] MEDS: VITAMIN D 1,000 INTERNATIONAL UNITS TABLET PO SCH (08:39)
[2022-01-01] MEDS: FLUTICASONE PROP 0.05% NASAL SPRAY 16 GM (FLONASE) SCH (08:39)
[2022-01-01] MEDS: OMEPRAZOLE 20MG CAP PO SCH (08:40)
[2022-01-01] MEDS: METOPROLOL SUCC (TopROL XL) 50MG **XL** TAB PO SCH (08:40)
[2022-01-01] MEDS: ASPIRIN 81MG ENTERIC TABLET PO SCH (08:40)
[2022-01-01] MEDS: LOSARTAN 50MG TABLET PO SCH (08:40)
[2022-01-01] MEDS: GABAPENTIN 100 MG CAP PO SCH ×3 (08:40→21:57)
[2022-01-01] MEDS: LORATADINE 10 MG TAB PO SCH (08:40)
[2022-01-01] MEDS: DULoxetine 30MG CAPSULE (CYMBALTA) PO SCH (08:40)
[2022-01-01] MEDS: LEVEMIR (INSULIN DETEMIR) 1 UNITS/0.01ML SC SCH ×2 (08:41→21:57)
[2022-01-01] MEDS: LORazepam 2 MG TAB PO PRN (12:20)
[2022-01-01 16:18] VITALS: BP 140/75
[2022-01-01] MEDS: ATORVASTATIN 20 MG TAB PO SCH (21:57)
[2022-01-01] MEDS: amLODIPine 5 MG TAB PO SCH (21:58)
[2022-01-01] MEDS: LITHIUM CARBONATE 600MG CAP PO SCH (21:58)
[2022-01-01] MEDS: CitaloPRAM (CeleXA) 20 MG TAB PO SCH (21:58)
[2022-01-01] MEDS: risperiDONE 3 MG TAB PO SCH (21:58)
[2022-01-01] MEDS: PRAZOSIN 1 MG CAP PO SCH (22:00)
[2022-01-02] MEDS: LEVOTHYROXINE 88MCG TABLET (0.088 MG) PO SCH (06:34)
[2022-01-02] MEDS: HumaLOG INSULIN (NovoLOG) PER UNIT SC SCH ×4 (06:37→21:00)
[2022-01-02 06:59] VITALS: BP 139/82
[2022-01-02] MEDS: VITAMIN D 1,000 INTERNATIONAL UNITS TABLET PO SCH (08:53)
[2022-01-02] MEDS: ASPIRIN 81MG ENTERIC TABLET PO SCH (08:54)
[2022-01-02] MEDS: DULoxetine 30MG CAPSULE (CYMBALTA) PO SCH (08:54)
[2022-01-02] MEDS: FOLIC ACID 1 MG TAB PO SCH (08:54)
[2022-01-02] MEDS: LORATADINE 10 MG TAB PO SCH (08:54)
[2022-01-02] MEDS: OMEPRAZOLE 20MG CAP PO SCH (08:54)
[2022-01-02] MEDS: METOPROLOL SUCC (TopROL XL) 50MG **XL** TAB PO SCH (08:54)
[2022-01-02] MEDS: FERROUS SULFATE 325MG TAB PO SCH (08:54)
[2022-01-02] MEDS: GABAPENTIN 100 MG CAP PO SCH ×3 (08:54→21:36)
[2022-01-02] MEDS: LOSARTAN 50MG TABLET PO SCH (08:54)
[2022-01-02] MEDS: FLUTICASONE PROP 0.05% NASAL SPRAY 16 GM (FLONASE) SCH (08:58)
[2022-01-02] MEDS: LEVEMIR (INSULIN DETEMIR) 1 UNITS/0.01ML SC SCH ×2 (08:59→21:38)
[2022-01-02] MEDS: LORazepam 2 MG TAB PO PRN (11:42)
[2022-01-02] MEDS ORDERED: PALIPERIDONE PALMITATE 234MG/1.5ML INJ (INVEGA)(FREE PSY INPT ONLY) IM ONE (12:00)
[2022-01-02] MEDS: FUROSEMIDE 20 MG TAB PO SCH (13:38)
[2022-01-02 19:16] VITALS: BP 126/79
[2022-01-02] MEDS: PRAZOSIN 1 MG CAP PO SCH (21:35)
[2022-01-02] MEDS: traZODone 50 MG TAB PO PRN (21:35)
[2022-01-02] MEDS: ATORVASTATIN 20 MG TAB PO SCH (21:36)
[2022-01-02] MEDS: CitaloPRAM (CeleXA) 20 MG TAB PO SCH (21:36)
[2022-01-02] MEDS: LITHIUM CARBONATE 300 MG CAP PO SCH (21:36)
[2022-01-02] MEDS: amLODIPine 5 MG TAB PO SCH (21:36)
[2022-01-03] MEDS: LEVOTHYROXINE 88MCG TABLET (0.088 MG) PO SCH (05:37)
[2022-01-03 06:43] VITALS: BP 129/84
[2022-01-03] MEDS: HumaLOG INSULIN (NovoLOG) PER UNIT SC SCH ×4 (07:04→21:00)
[2022-01-03] MEDS: FLUTICASONE PROP 0.05% NASAL SPRAY 16 GM (FLONASE) SCH (09:00)
[2022-01-03] MEDS: METOPROLOL SUCC (TopROL XL) 50MG **XL** TAB PO SCH (09:28)
[2022-01-03] MEDS: GABAPENTIN 100 MG CAP PO SCH ×3 (09:28→22:04)
[2022-01-03] MEDS: FOLIC ACID 1 MG TAB PO SCH (09:28)
[2022-01-03] MEDS: LORATADINE 10 MG TAB PO SCH (09:28)
[2022-01-03] MEDS: VITAMIN D 1,000 INTERNATIONAL UNITS TABLET PO SCH (09:28)
[2022-01-03] MEDS: LEVEMIR (INSULIN DETEMIR) 1 UNITS/0.01ML SC SCH ×2 (09:28→22:00)
[2022-01-03] MEDS: OMEPRAZOLE 20MG CAP PO SCH (09:29)
[2022-01-03] MEDS: DULoxetine 30MG CAPSULE (CYMBALTA) PO SCH (09:29)
[2022-01-03] MEDS: FERROUS SULFATE 325MG TAB PO SCH (09:29)
[2022-01-03] MEDS: LOSARTAN 50MG TABLET PO SCH (09:29)
[2022-01-03] MEDS: ASPIRIN 81MG ENTERIC TABLET PO SCH (09:29)
[2022-01-03] MEDS: LORazepam 2 MG TAB PO PRN (16:33)
[2022-01-03 18:11] VITALS: BP 131/62
[2022-01-03] MEDS: traZODone 50 MG TAB PO PRN ×2 (21:51→22:01)
[2022-01-03] MEDS: ATORVASTATIN 20 MG TAB PO SCH (22:01)
[2022-01-03] MEDS: amLODIPine 5 MG TAB PO SCH (22:03)
[2022-01-03] MEDS: LITHIUM CARBONATE 300 MG CAP PO SCH (22:03)
[2022-01-03] MEDS: CitaloPRAM (CeleXA) 20 MG TAB PO SCH (22:04)
[2022-01-03] MEDS: PRAZOSIN 1 MG CAP PO SCH (22:04)
[2022-01-04] MEDS: LEVOTHYROXINE 88MCG TABLET (0.088 MG) PO SCH (05:43)
[2022-01-04 06:55] VITALS: BP 132/76
[2022-01-04] MEDS: HumaLOG INSULIN (NovoLOG) PER UNIT SC SCH ×4 (07:00→21:00)
[2022-01-04] MEDS: ASPIRIN 81MG ENTERIC TABLET PO SCH (09:32)
[2022-01-04] MEDS: VITAMIN D 1,000 INTERNATIONAL UNITS TABLET PO SCH (09:32)
[2022-01-04] MEDS: FLUTICASONE PROP 0.05% NASAL SPRAY 16 GM (FLONASE) SCH (09:32)
[2022-01-04] MEDS: DULoxetine 30MG CAPSULE (CYMBALTA) PO SCH (09:32)
[2022-01-04] MEDS: METOPROLOL SUCC (TopROL XL) 50MG **XL** TAB PO SCH (09:32)
[2022-01-04] MEDS: FERROUS SULFATE 325MG TAB PO SCH (09:32)
[2022-01-04] MEDS: GABAPENTIN 100 MG CAP PO SCH ×3 (09:33→21:12)
[2022-01-04] MEDS: LOSARTAN 50MG TABLET PO SCH (09:33)
[2022-01-04] MEDS: LORATADINE 10 MG TAB PO SCH (09:33)
[2022-01-04] MEDS: FOLIC ACID 1 MG TAB PO SCH (09:33)
[2022-01-04] MEDS: OMEPRAZOLE 20MG CAP PO SCH (09:33)
[2022-01-04] MEDS: LEVEMIR (INSULIN DETEMIR) 1 UNITS/0.01ML SC SCH ×2 (09:36→21:12)
[2022-01-04] MEDS: LORazepam 2 MG TAB PO PRN (13:23)
[2022-01-04] MEDS: FUROSEMIDE 20 MG TAB PO SCH (13:24)
[2022-01-04] MEDS: CitaloPRAM (CeleXA) 20 MG TAB PO SCH (21:10)
[2022-01-04] MEDS: ATORVASTATIN 20 MG TAB PO SCH (21:11)
[2022-01-04] MEDS: amLODIPine 5 MG TAB PO SCH (21:11)
[2022-01-04] MEDS: LITHIUM CARBONATE 300 MG CAP PO SCH (21:11)
[2022-01-04] MEDS: PRAZOSIN 1 MG CAP PO SCH (21:12)
[2022-01-05] MEDS: LEVOTHYROXINE 88MCG TABLET (0.088 MG) PO SCH (06:17)
[2022-01-05 06:33] VITALS: BP 141/73
[2022-01-05] MEDS: HumaLOG INSULIN (NovoLOG) PER UNIT SC SCH ×4 (06:37→21:00)
[2022-01-05] MEDS: FLUTICASONE PROP 0.05% NASAL SPRAY 16 GM (FLONASE) SCH (09:50)
[2022-01-05] MEDS: METOPROLOL SUCC (TopROL XL) 50MG **XL** TAB PO SCH (09:56)
[2022-01-05] MEDS: LORATADINE 10 MG TAB PO SCH (09:56)
[2022-01-05] MEDS: OMEPRAZOLE 20MG CAP PO SCH (09:56)
[2022-01-05] MEDS: FOLIC ACID 1 MG TAB PO SCH (09:57)
[2022-01-05] MEDS: LOSARTAN 50MG TABLET PO SCH (09:57)
[2022-01-05] MEDS: DULoxetine 30MG CAPSULE (CYMBALTA) PO SCH (09:57)
[2022-01-05] MEDS: GABAPENTIN 100 MG CAP PO SCH ×3 (09:58→21:48)
[2022-01-05] MEDS: FERROUS SULFATE 325MG TAB PO SCH (09:58)
[2022-01-05] MEDS: LEVEMIR (INSULIN DETEMIR) 1 UNITS/0.01ML SC SCH ×2 (09:58→21:50)
[2022-01-05] MEDS: ASPIRIN 81MG ENTERIC TABLET PO SCH (09:58)
[2022-01-05] MEDS: VITAMIN D 1,000 INTERNATIONAL UNITS TABLET PO SCH (09:58)
[2022-01-05 15:38] VITALS: BP 125/68
[2022-01-05] MEDS: LORazepam 2 MG TAB PO PRN (18:19)
[2022-01-05] MEDS: LITHIUM CARBONATE 300 MG CAP PO SCH (21:48)
[2022-01-05] MEDS: CitaloPRAM (CeleXA) 20 MG TAB PO SCH (21:48)
[2022-01-05] MEDS: amLODIPine 5 MG TAB PO SCH (21:49)
[2022-01-05] MEDS: ATORVASTATIN 20 MG TAB PO SCH (21:49)
[2022-01-05] MEDS: PRAZOSIN 1 MG CAP PO SCH (21:49)
[2022-01-06] MEDS: LEVOTHYROXINE 88MCG TABLET (0.088 MG) PO SCH (05:47)
[2022-01-06 06:10] VITALS: BP 117/72
[2022-01-06] MEDS: HumaLOG INSULIN (NovoLOG) PER UNIT SC SCH ×4 (06:54→21:00)
[2022-01-06] MEDS ORDERED: PALIPERIDONE PALMITATE 156MG/1ML INJ(INVEGA)(FREE PSY INPT ONLY) IM ONE ×2 (09:00→12:00)
[2022-01-06] MEDS: FLUTICASONE PROP 0.05% NASAL SPRAY 16 GM (FLONASE) SCH (09:00)
[2022-01-06] MEDS: LOSARTAN 50MG TABLET PO SCH (09:51)
[2022-01-06] MEDS: LEVEMIR (INSULIN DETEMIR) 1 UNITS/0.01ML SC SCH ×2 (09:51→21:39)
[2022-01-06] MEDS: METOPROLOL SUCC (TopROL XL) 50MG **XL** TAB PO SCH (09:51)
[2022-01-06] MEDS: DULoxetine 30MG CAPSULE (CYMBALTA) PO SCH (09:52)
[2022-01-06] MEDS: FERROUS SULFATE 325MG TAB PO SCH (09:52)
[2022-01-06] MEDS: GABAPENTIN 100 MG CAP PO SCH ×3 (09:52→21:37)
[2022-01-06] MEDS: FOLIC ACID 1 MG TAB PO SCH (09:52)
[2022-01-06] MEDS: OMEPRAZOLE 20MG CAP PO SCH (09:52)
[2022-01-06] MEDS: VITAMIN D 1,000 INTERNATIONAL UNITS TABLET PO SCH (09:52)
[2022-01-06] MEDS: ASPIRIN 81MG ENTERIC TABLET PO SCH (09:52)
[2022-01-06] MEDS: LORATADINE 10 MG TAB PO SCH (09:52)
[2022-01-06] MEDS: FUROSEMIDE 20 MG TAB PO SCH (14:15)
[2022-01-06] MEDS: LORazepam 2 MG TAB PO PRN (16:14)
[2022-01-06 18:57] VITALS: BP 136/82
[2022-01-06] MEDS: amLODIPine 5 MG TAB PO SCH (21:37)
[2022-01-06] MEDS: ATORVASTATIN 20 MG TAB PO SCH (21:37)
[2022-01-06] MEDS: CitaloPRAM (CeleXA) 20 MG TAB PO SCH (21:37)
[2022-01-06] MEDS: LITHIUM CARBONATE 300 MG CAP PO SCH (21:37)
[2022-01-06] MEDS: PRAZOSIN 1 MG CAP PO SCH (21:38)
[2022-01-07] MEDS: LEVOTHYROXINE 88MCG TABLET (0.088 MG) PO SCH (05:44)
[2022-01-07 06:33] VITALS: BP 150/79
[2022-01-07] MEDS: HumaLOG INSULIN (NovoLOG) PER UNIT SC SCH ×5 (06:35→22:08)
[2022-01-07] MEDS: FLUTICASONE PROP 0.05% NASAL SPRAY 16 GM (FLONASE) SCH (09:00)
[2022-01-07] MEDS: OMEPRAZOLE 20MG CAP PO SCH (09:15)
[2022-01-07] MEDS: FOLIC ACID 1 MG TAB PO SCH (09:15)
[2022-01-07] MEDS: FERROUS SULFATE 325MG TAB PO SCH (09:15)
[2022-01-07] MEDS: VITAMIN D 1,000 INTERNATIONAL UNITS TABLET PO SCH (09:15)
[2022-01-07] MEDS: METOPROLOL SUCC (TopROL XL) 50MG **XL** TAB PO SCH (09:15)
[2022-01-07] MEDS: DULoxetine 30MG CAPSULE (CYMBALTA) PO SCH (09:15)
[2022-01-07] MEDS: LORATADINE 10 MG TAB PO SCH (09:15)
[2022-01-07] MEDS: ASPIRIN 81MG ENTERIC TABLET PO SCH (09:15)
[2022-01-07] MEDS: LEVEMIR (INSULIN DETEMIR) 1 UNITS/0.01ML SC SCH ×2 (09:16→22:09)
[2022-01-07] MEDS: LOSARTAN 50MG TABLET PO SCH (09:16)
[2022-01-07] MEDS: GABAPENTIN 100 MG CAP PO SCH ×3 (09:19→21:58)
[2022-01-07 18:41] VITALS: BP 137/80
[2022-01-07] MEDS: ATORVASTATIN 20 MG TAB PO SCH (21:58)
[2022-01-07] MEDS: PRAZOSIN 1 MG CAP PO SCH (21:58)
[2022-01-07] MEDS: CitaloPRAM (CeleXA) 20 MG TAB PO SCH (21:58)
[2022-01-07] MEDS: LITHIUM CARBONATE 300 MG CAP PO SCH (21:58)
[2022-01-07] MEDS: amLODIPine 5 MG TAB PO SCH (21:59)
[2022-01-08] MEDS: LEVOTHYROXINE 88MCG TABLET (0.088 MG) PO SCH (05:45)
[2022-01-08 06:00] VITALS: BP 133/93
[2022-01-08] MEDS: HumaLOG INSULIN (NovoLOG) PER UNIT SC SCH ×4 (06:47→20:13)
[2022-01-08] MEDS: FLUTICASONE PROP 0.05% NASAL SPRAY 16 GM (FLONASE) SCH (09:00)
[2022-01-08] MEDS: OMEPRAZOLE 20MG CAP PO SCH (09:31)
[2022-01-08] MEDS: FOLIC ACID 1 MG TAB PO SCH (09:31)
[2022-01-08] MEDS: FERROUS SULFATE 325MG TAB PO SCH (09:31)
[2022-01-08] MEDS: DULoxetine 30MG CAPSULE (CYMBALTA) PO SCH (09:31)
[2022-01-08] MEDS: GABAPENTIN 100 MG CAP PO SCH ×3 (09:32→20:10)
[2022-01-08] MEDS: ASPIRIN 81MG ENTERIC TABLET PO SCH (09:32)
[2022-01-08] MEDS: LORATADINE 10 MG TAB PO SCH (09:32)
[2022-01-08] MEDS: VITAMIN D 1,000 INTERNATIONAL UNITS TABLET PO SCH (09:32)
[2022-01-08] MEDS: LOSARTAN 50MG TABLET PO SCH (09:37)
[2022-01-08] MEDS: LEVEMIR (INSULIN DETEMIR) 1 UNITS/0.01ML SC SCH ×2 (09:38→20:11)
[2022-01-08] MEDS: METOPROLOL SUCC (TopROL XL) 50MG **XL** TAB PO SCH (09:38)
[2022-01-08] MEDS: FUROSEMIDE 20 MG TAB PO SCH (14:00)
[2022-01-08 18:33] VITALS: BP 132/79
[2022-01-08] MEDS: LITHIUM CARBONATE 300 MG CAP PO SCH (20:06)
[2022-01-08] MEDS: amLODIPine 5 MG TAB PO SCH (20:10)
[2022-01-08] MEDS: ATORVASTATIN 20 MG TAB PO SCH (20:10)
[2022-01-08] MEDS: PRAZOSIN 1 MG CAP PO SCH (20:10)
[2022-01-08] MEDS: CitaloPRAM (CeleXA) 20 MG TAB PO SCH (20:11)
[2022-01-08] MEDS: traZODone 50 MG TAB PO PRN (20:25)
[2022-01-08] MEDS: LORazepam 2 MG TAB PO PRN (20:27)
[2022-01-09 06:38] VITALS: BP 152/81
[2022-01-09] MEDS: LEVOTHYROXINE 88MCG TABLET (0.088 MG) PO SCH (06:44)
[2022-01-09] MEDS: HumaLOG INSULIN (NovoLOG) PER UNIT SC SCH ×4 (07:12→20:51)
[2022-01-09] MEDS: FLUTICASONE PROP 0.05% NASAL SPRAY 16 GM (FLONASE) SCH (09:25)
[2022-01-09] MEDS: FERROUS SULFATE 325MG TAB PO SCH (09:25)
[2022-01-09] MEDS: LOSARTAN 50MG TABLET PO SCH (09:25)
[2022-01-09] MEDS: ASPIRIN 81MG ENTERIC TABLET PO SCH (09:25)
[2022-01-09] MEDS: LORATADINE 10 MG TAB PO SCH (09:26)
[2022-01-09] MEDS: METOPROLOL SUCC (TopROL XL) 50MG **XL** TAB PO SCH (09:26)
[2022-01-09] MEDS: FOLIC ACID 1 MG TAB PO SCH (09:26)
[2022-01-09] MEDS: VITAMIN D 1,000 INTERNATIONAL UNITS TABLET PO SCH (09:26)
[2022-01-09] MEDS: GABAPENTIN 100 MG CAP PO SCH ×3 (09:26→20:48)
[2022-01-09] MEDS: OMEPRAZOLE 20MG CAP PO SCH (09:26)
[2022-01-09] MEDS: DULoxetine 30MG CAPSULE (CYMBALTA) PO SCH (09:26)
[2022-01-09] MEDS: LEVEMIR (INSULIN DETEMIR) 1 UNITS/0.01ML SC SCH ×2 (09:27→20:49)
[2022-01-09 16:47] VITALS: BP 120/60
[2022-01-09] MEDS: PRAZOSIN 1 MG CAP PO SCH (20:47)
[2022-01-09] MEDS: CitaloPRAM (CeleXA) 20 MG TAB PO SCH (20:48)
[2022-01-09] MEDS: LITHIUM CARBONATE 300 MG CAP PO SCH (20:48)
[2022-01-09] MEDS: ATORVASTATIN 20 MG TAB PO SCH (20:48)
[2022-01-09] MEDS: amLODIPine 5 MG TAB PO SCH (20:48)
[2022-01-10 06:34] VITALS: BP 130/86
[2022-01-10] MEDS: LEVOTHYROXINE 88MCG TABLET (0.088 MG) PO SCH (06:51)
[2022-01-10] MEDS: HumaLOG INSULIN (NovoLOG) PER UNIT SC SCH ×4 (06:51→21:00)
[2022-01-10] MEDS: FERROUS SULFATE 325MG TAB PO SCH (09:08)
[2022-01-10] MEDS: GABAPENTIN 100 MG CAP PO SCH ×3 (09:08→21:24)
[2022-01-10] MEDS: ASPIRIN 81MG ENTERIC TABLET PO SCH (09:08)
[2022-01-10] MEDS: FLUTICASONE PROP 0.05% NASAL SPRAY 16 GM (FLONASE) SCH (09:08)
[2022-01-10] MEDS: OMEPRAZOLE 20MG CAP PO SCH (09:08)
[2022-01-10] MEDS: LORATADINE 10 MG TAB PO SCH (09:09)
[2022-01-10] MEDS: FOLIC ACID 1 MG TAB PO SCH (09:09)
[2022-01-10] MEDS: VITAMIN D 1,000 INTERNATIONAL UNITS TABLET PO SCH (09:09)
[2022-01-10] MEDS: LEVEMIR (INSULIN DETEMIR) 1 UNITS/0.01ML SC SCH ×2 (09:09→21:22)
[2022-01-10] MEDS: DULoxetine 30MG CAPSULE (CYMBALTA) PO SCH (09:09)
[2022-01-10] MEDS: LOSARTAN 50MG TABLET PO SCH (09:13)
[2022-01-10] MEDS: METOPROLOL SUCC (TopROL XL) 50MG **XL** TAB PO SCH (09:13)
[2022-01-10] MEDS: LORazepam 2 MG TAB PO PRN ×2 (11:18→18:10)
[2022-01-10] MEDS: FUROSEMIDE 20 MG TAB PO SCH (14:59)
[2022-01-10 18:00] VITALS: BP 119/66
[2022-01-10] MEDS: LITHIUM CARBONATE 300 MG CAP PO SCH (21:23)
[2022-01-10] MEDS: amLODIPine 5 MG TAB PO SCH (21:23)
[2022-01-10] MEDS: CitaloPRAM (CeleXA) 20 MG TAB PO SCH (21:24)
[2022-01-10] MEDS: PRAZOSIN 1 MG CAP PO SCH (21:24)
[2022-01-10] MEDS: ATORVASTATIN 20 MG TAB PO SCH (21:24)
[2022-01-11] MEDS: LORazepam 2 MG TAB PO PRN (05:12)
[2022-01-11] MEDS: LEVOTHYROXINE 88MCG TABLET (0.088 MG) PO SCH (05:13)
[2022-01-11] MEDS: HumaLOG INSULIN (NovoLOG) PER UNIT SC SCH ×4 (07:08→21:00)
[2022-01-11 07:09] VITALS: BP 107/61
[2022-01-11] MEDS: LEVEMIR (INSULIN DETEMIR) 1 UNITS/0.01ML SC SCH ×2 (08:51→21:14)
[2022-01-11] MEDS: FLUTICASONE PROP 0.05% NASAL SPRAY 16 GM (FLONASE) SCH (08:51)
[2022-01-11] MEDS: LORATADINE 10 MG TAB PO SCH (08:51)
[2022-01-11] MEDS: VITAMIN D 1,000 INTERNATIONAL UNITS TABLET PO SCH (08:52)
[2022-01-11] MEDS: OMEPRAZOLE 20MG CAP PO SCH (08:52)
[2022-01-11] MEDS: ASPIRIN 81MG ENTERIC TABLET PO SCH (08:52)
[2022-01-11] MEDS: GABAPENTIN 100 MG CAP PO SCH ×3 (08:53→21:09)
[2022-01-11] MEDS: FOLIC ACID 1 MG TAB PO SCH (08:53)
[2022-01-11] MEDS: FERROUS SULFATE 325MG TAB PO SCH (08:53)
[2022-01-11] MEDS: METOPROLOL SUCC (TopROL XL) 50MG **XL** TAB PO SCH (08:53)
[2022-01-11] MEDS: DULoxetine 30MG CAPSULE (CYMBALTA) PO SCH (08:53)
[2022-01-11] MEDS: LOSARTAN 50MG TABLET PO SCH (08:54)
[2022-01-11] MEDS ORDERED: OLANZapine ORAL DISINTEGRATING TAB 5MG PO ONE (10:45)
[2022-01-11 16:24] VITALS: BP 115/71
[2022-01-11] MEDS: LITHIUM CARBONATE 300 MG CAP PO SCH (21:09)
[2022-01-11] MEDS: CitaloPRAM (CeleXA) 20 MG TAB PO SCH (21:09)
[2022-01-11] MEDS: amLODIPine 5 MG TAB PO SCH (21:09)
[2022-01-11] MEDS: ATORVASTATIN 20 MG TAB PO SCH (21:09)
[2022-01-11] MEDS: PRAZOSIN 1 MG CAP PO SCH (21:12)
[2022-01-12] MEDS: ACETAMINOPHEN TAB 650MG DOSE (2X325MG) PO PRN (03:43)
[2022-01-12] MEDS: LEVOTHYROXINE 88MCG TABLET (0.088 MG) PO SCH (05:46)
[2022-01-12] MEDS: HumaLOG INSULIN (NovoLOG) PER UNIT SC SCH ×4 (06:32→21:00)
[2022-01-12 06:35] VITALS: BP 110/59
[2022-01-12] MEDS: FERROUS SULFATE 325MG TAB PO SCH (08:07)
[2022-01-12] MEDS: VITAMIN D 1,000 INTERNATIONAL UNITS TABLET PO SCH (08:07)
[2022-01-12] MEDS: GABAPENTIN 100 MG CAP PO SCH ×3 (08:07→21:25)
[2022-01-12] MEDS: FOLIC ACID 1 MG TAB PO SCH (08:07)
[2022-01-12] MEDS: ASPIRIN 81MG ENTERIC TABLET PO SCH (08:07)
[2022-01-12] MEDS: LORATADINE 10 MG TAB PO SCH (08:07)
[2022-01-12] MEDS: LEVEMIR (INSULIN DETEMIR) 1 UNITS/0.01ML SC SCH ×2 (08:07→21:29)
[2022-01-12] MEDS: DULoxetine 30MG CAPSULE (CYMBALTA) PO SCH (08:07)
[2022-01-12] MEDS: LOSARTAN 50MG TABLET PO SCH (08:07)
[2022-01-12] MEDS: OMEPRAZOLE 20MG CAP PO SCH (08:07)
[2022-01-12] MEDS: METOPROLOL SUCC (TopROL XL) 50MG **XL** TAB PO SCH (08:08)
[2022-01-12] MEDS: FLUTICASONE PROP 0.05% NASAL SPRAY 16 GM (FLONASE) SCH (08:10)
[2022-01-12] MEDS: FUROSEMIDE 20 MG TAB PO SCH (13:17)
[2022-01-12 18:26] VITALS: BP 138/74
[2022-01-12] MEDS: CitaloPRAM (CeleXA) 20 MG TAB PO SCH (21:25)
[2022-01-12] MEDS: PRAZOSIN 1 MG CAP PO SCH (21:25)
[2022-01-12] MEDS: LITHIUM CARBONATE 300 MG CAP PO SCH (21:25)
[2022-01-12] MEDS: ATORVASTATIN 20 MG TAB PO SCH (21:26)
[2022-01-12] MEDS: amLODIPine 5 MG TAB PO SCH (21:26)
[2022-01-13] MEDS: LEVOTHYROXINE 88MCG TABLET (0.088 MG) PO SCH (05:05)
[2022-01-13] MEDS: HumaLOG INSULIN (NovoLOG) PER UNIT SC SCH ×2 (06:57→12:15)
[2022-01-13 07:05] VITALS: BP 133/63
[2022-01-13] MEDS: DULoxetine 30MG CAPSULE (CYMBALTA) PO SCH (09:05)
[2022-01-13] MEDS: GABAPENTIN 100 MG CAP PO SCH (09:05)
[2022-01-13] MEDS: FOLIC ACID 1 MG TAB PO SCH (09:06)
[2022-01-13] MEDS: OMEPRAZOLE 20MG CAP PO SCH (09:06)
[2022-01-13] MEDS: FERROUS SULFATE 325MG TAB PO SCH (09:06)
[2022-01-13] MEDS: VITAMIN D 1,000 INTERNATIONAL UNITS TABLET PO SCH (09:06)
[2022-01-13] MEDS: ASPIRIN 81MG ENTERIC TABLET PO SCH (09:06)
[2022-01-13] MEDS: METOPROLOL SUCC (TopROL XL) 50MG **XL** TAB PO SCH (09:06)
[2022-01-13] MEDS: FLUTICASONE PROP 0.05% NASAL SPRAY 16 GM (FLONASE) SCH (09:07)
[2022-01-13] MEDS: LEVEMIR (INSULIN DETEMIR) 1 UNITS/0.01ML SC SCH (09:07)
[2022-01-13 09:08] VITALS: BP 120/60
[2022-01-13] MEDS: LOSARTAN 50MG TABLET PO SCH (09:08)
[2022-01-13] MEDS ORDERED: FURO20TA2 PO (11:15)
[2022-01-13] MEDS ORDERED: LITH300C PO (11:15)
[2022-01-13] MEDS ORDERED: INVE234I IM (11:18)
[2022-01-13] MEDS: LORATADINE 10 MG TAB PO SCH (11:26)
== END 2022-01-13 13:10 | disposition home or self-care (01) | DRG 753 ==
LOC: M ED 17:33 → M ED INP 12-26 13:12 → M PSY 12-26 18:48
PROVIDERS: ADMIT Psychiatry & Neurology Psychiatry; ATTEND Psychiatry & Neurology Psychiatry
DX: F31.2 Bipolar disorder, current episode manic severe with psychotic features (principal); E11.51 Type 2 diabetes mellitus with diabetic peripheral angiopathy without gangrene; F79 Unspecified intellectual disabilities; K86.1 Other chronic pancreatitis; E66.01 Morbid (severe) obesity due to excess calories; K76.0 Fatty (change of) liver, not elsewhere classified; Z91.14 Patient's other noncompliance with medication regimen; F12.90 Cannabis use, unspecified, uncomplicated; F60.3 Borderline personality disorder; Z79.899 Other long term (current) drug therapy; Z79.82 Long term (current) use of aspirin; Z79.4 Long term (current) use of insulin; Z88.2 Allergy status to sulfonamides; Z88.8 Allergy status to other drugs, medicaments and biological substances; K21.9 Gastro-esophageal reflux disease without esophagitis; E03.9 Hypothyroidism, unspecified; I10 Essential (primary) hypertension; Z98.41 Cataract extraction status, right eye; Z98.42 Cataract extraction status, left eye

== ENCOUNTER 2022-01-18 01:51 | Inpatient (IN) | payer MEDICAID, OTHER ==
[~2022-01-18] VITALS: Ht 170.2 cm; Wt 129.0 kg
[~2022-01-18 01:51] MED LIST changes: +ASPI-226 PO; +FLUTISP; +FURO20TA2 PO; +INVE234I IM; +LITH300C PO; +LORA-930 PO; +MED REC COMMENT; +OLAN1TAB20 PO; +PRAZ1CAP PO
[2022-01-18] MEDS ORDERED: NS 1,000 ML IV ONE (02:15)
[2022-01-18 02:26] LABS: BASO # 0.1 10^3/uL (0.0-0.2); BASO % 0.6 % (0.0-1.0); EOS # 0.4 10^3/uL (0.0-0.5); EOS % 3.3 % (0.0-3.0); HEMATOCRIT 41.3 % (36.0-47.0); HEMOGLOBIN 13.5 g/dl (12.0-15.5); LYMPH # 3.3 10^3/uL (1.5-5.0); LYMPH % 26.4 % (24.0-44.0); MEAN CORPUSCULAR HEMOGLOBIN 28.6 pg (27.0-33.0); MEAN CORPUSCULAR HGB CONC 32.7 g/dl (32.0-36.5); MEAN CORPUSCULAR VOLUME 87.5 fl (80.0-96.0); MONO # 0.8 10^3/uL (0.0-0.8); MONO % 6.5 % (2.0-8.0); NEUTROPHILS # 7.9 10^3/uL (1.5-8.5); NEUTROPHILS % 62.9 % (36.0-66.0); PLATELET COUNT, AUTOMATED 347 10^3/uL (150-450); RED BLOOD COUNT 4.72 10^6/uL (4.00-5.40); WHITE BLOOD COUNT 12.6 10^3/uL (4.0-10.0)
[2022-01-18 03:03] LABS: RSV AMPLIFICATION NEGATIVE (NEGATIVE)
[2022-01-18 03:04] LABS: AMPHETAMINES LEVEL URINE NEGATIVE (NEGATIVE); BARBITURATES URINE NEGATIVE (NEGATIVE); BENZODIAZEPINES URINE NEGATIVE (NEGATIVE); CANNABINOIDS URINE NEGATIVE (NEGATIVE); COCAINE METABOLITE URINE NEGATIVE (NEGATIVE); METHADONE URINE NEGATIVE (NEGATIVE); OPIATES URINE NEGATIVE (NEGATIVE); PHENCYCLIDINE URINE NEGATIVE (NEGATIVE)
[2022-01-18 03:24] LABS: ACETAMINOPHEN LEVEL < 2.0 UG/ML (10.0-30.0); ALBUMIN 3.7 GM/DL (3.2-5.2); ALT/SGPT 38 U/L (12-78); BILIRUBIN,DIRECT 0.2 MG/DL (0.0-0.2); BILIRUBIN,TOTAL 0.4 MG/DL (0.2-1.0); BLOOD UREA NITROGEN 14 MG/DL (7-18); CALCIUM LEVEL 9.4 MG/DL (8.5-10.1); CARBON DIOXIDE LEVEL 29 MEQ/L (21-32); CHLORIDE LEVEL 110 MEQ/L (98-107); CREATININE FOR GFR 0.68 MG/DL (0.55-1.30); ETHYL ALCOHOL (ETHANOL) < 0.003 % (0.000-0.010); GLOMERULAR FILTRATION RATE > 60.0 (>58); GLUCOSE, FASTING 67 MG/DL (70-100); LITHIUM LEVEL 0.64 MEQ/L (0.60-1.20); POTASSIUM SERUM 3.7 MEQ/L (3.5-5.1); SALICYLATE LEVEL < 1.7 MG/DL (5.0-30.0); SODIUM LEVEL 143 MEQ/L (136-145)
[2022-01-18] MEDS ORDERED: ALPRAZolam 0.5 MG TAB PO ONE (08:45)
[2022-01-18] MEDS ORDERED: ATEN100T PO (14:48)
[2022-01-18] MEDS ORDERED: CELE20TA PO (14:48)
[2022-01-18] MEDS ORDERED: PROP10TA56 PO (14:48)
[2022-01-18] MEDS ORDERED: LITH300C PO (14:48)
[2022-01-18] MEDS ORDERED: POTA10TA67 PO (14:55)
[2022-01-18] MEDS ORDERED: CETI-24 PO (14:55)
[2022-01-18] MEDS ORDERED: SUCR1TA PO (14:55)
[2022-01-18] MEDS ORDERED: MECL-86 PO (14:55)
[2022-01-18] MEDS ORDERED: FURO20TA2 PO (14:58)
[2022-01-18] MEDS ORDERED: OLAN20TA14 PO (14:58)
[2022-01-18] MEDS ORDERED: HOME MED LIST COMPLETE! XX SCH (15:05)
[2022-01-18] MEDS ORDERED: GLUCAGON INJ 1MG VIAL SC PRN (16:45)
[2022-01-18] MEDS ORDERED: MAALOX 30 ML SUSP *UDC PO PRN (16:45)
[2022-01-18] MEDS ORDERED: PROPRANOLOL 10 MG TAB PO PRN (16:45)
[2022-01-18] MEDS ORDERED: methocarbamoL 500 MG TAB PO PRN (16:45)
[2022-01-18] MEDS ORDERED: FLUTICASONE PROP 0.05% NASAL SPRAY 16 GM (FLONASE) PRN (16:45)
[2022-01-18] MEDS ORDERED: GLUCOSE 4GM CHEW TABLET PO PRN (16:45)
[2022-01-18] MEDS ORDERED: MOM 30ML SUSPENSION UDC PO PRN (16:45)
[2022-01-18] MEDS: HumaLOG INSULIN (NovoLOG) PER UNIT SC SCH ×2 (17:39→21:00)
[2022-01-18] MEDS: GABAPENTIN 100 MG CAP PO SCH (20:49)
[2022-01-18] MEDS: ATORVASTATIN 20 MG TAB PO SCH (20:49)
[2022-01-18] MEDS: LITHIUM CARBONATE 300 MG CAP PO SCH (20:49)
[2022-01-18] MEDS: POTASSIUM CHLORIDE 10MEQ SR TABLET PO SCH (20:50)
[2022-01-18] MEDS: PRAZOSIN 1 MG CAP PO SCH (20:50)
[2022-01-18] MEDS: amLODIPine 5 MG TAB PO SCH (20:59)
[2022-01-18] MEDS: LORazepam 2 MG TAB PO PRN (21:21)
[2022-01-19] MEDS: LEVOTHYROXINE 88MCG TABLET (0.088 MG) PO SCH (06:00)
[2022-01-19 06:15] VITALS: BP 131/66
[2022-01-19] MEDS: HumaLOG INSULIN (NovoLOG) PER UNIT SC SCH ×4 (06:37→21:00)
[2022-01-19] MEDS ORDERED: METOPROLOL SUCC (TopROL XL) 50MG **XL** TAB PO SCH (09:00)
[2022-01-19] MEDS ORDERED: DULoxetine 30MG CAPSULE (CYMBALTA) PO SCH (09:00)
[2022-01-19] MEDS: POTASSIUM CHLORIDE 10MEQ SR TABLET PO SCH (09:51)
[2022-01-19] MEDS: VITAMIN D 1,000 INTERNATIONAL UNITS TABLET PO SCH (09:51)
[2022-01-19] MEDS: OMEPRAZOLE 20MG CAP PO SCH (09:51)
[2022-01-19] MEDS: ASPIRIN 81MG ENTERIC TABLET PO SCH (09:51)
[2022-01-19] MEDS: DULoxetine 30MG CAPSULE (CYMBALTA) PO SCH (09:51)
[2022-01-19] MEDS: atenoloL 50 MG TAB PO SCH (09:52)
[2022-01-19] MEDS: GABAPENTIN 100 MG CAP PO SCH ×3 (09:52→21:35)
[2022-01-19] MEDS: FUROSEMIDE 20 MG TAB PO SCH (09:53)
[2022-01-19] MEDS ORDERED: BENZTROPINE 2 MG TAB PO ONE (10:15)
[2022-01-19] MEDS: OMEGA-3 1000MG CAPSULE PO SCH (14:15)
[2022-01-19] MEDS: SUCRALFATE 1 GM TAB PO SCH (17:15)
[2022-01-19 18:08] VITALS: BP 140/82
[2022-01-19] MEDS: amLODIPine 5 MG TAB PO SCH (21:35)
[2022-01-19] MEDS: LITHIUM CARBONATE 300 MG CAP PO SCH (21:35)
[2022-01-19] MEDS: PRAZOSIN 1 MG CAP PO SCH (21:35)
[2022-01-19] MEDS: ATORVASTATIN 20 MG TAB PO SCH (21:35)
[2022-01-19] MEDS: LEVEMIR (INSULIN DETEMIR) 1 UNITS/0.01ML SC SCH (21:36)
[2022-01-19] MEDS: LORazepam 2 MG TAB PO PRN (22:42)
[2022-01-20 06:23] VITALS: BP 114/71
[2022-01-20] MEDS: LEVOTHYROXINE 88MCG TABLET (0.088 MG) PO SCH (06:26)
[2022-01-20] MEDS: HumaLOG INSULIN (NovoLOG) PER UNIT SC SCH ×4 (06:30→20:36)
[2022-01-20] MEDS: SUCRALFATE 1 GM TAB PO SCH ×2 (08:00→17:37)
[2022-01-20] MEDS: OMEGA-3 1000MG CAPSULE PO SCH (08:59)
[2022-01-20] MEDS: LEVEMIR (INSULIN DETEMIR) 1 UNITS/0.01ML SC SCH ×2 (08:59→20:34)
[2022-01-20] MEDS: GABAPENTIN 100 MG CAP PO SCH ×3 (08:59→20:34)
[2022-01-20] MEDS: DULoxetine 30MG CAPSULE (CYMBALTA) PO SCH (08:59)
[2022-01-20] MEDS: VITAMIN D 1,000 INTERNATIONAL UNITS TABLET PO SCH (09:00)
[2022-01-20] MEDS: ASPIRIN 81MG ENTERIC TABLET PO SCH (09:02)
[2022-01-20] MEDS: OMEPRAZOLE 20MG CAP PO SCH (09:02)
[2022-01-20] MEDS: atenoloL 50 MG TAB PO SCH (09:02)
[2022-01-20] MEDS: IBUPROFEN 400MG TAB PO PRN (12:04)
[2022-01-20 18:28] VITALS: BP 137/80
[2022-01-20] MEDS: amLODIPine 5 MG TAB PO SCH (20:33)
[2022-01-20] MEDS: LITHIUM CARBONATE 300 MG CAP PO SCH (20:34)
[2022-01-20] MEDS: BENZTROPINE 1 MG TAB PO SCH (20:34)
[2022-01-20] MEDS: ATORVASTATIN 20 MG TAB PO SCH (20:34)
[2022-01-20] MEDS: PRAZOSIN 1 MG CAP PO SCH (20:34)
[2022-01-21] MEDS: IBUPROFEN 400MG TAB PO PRN (02:39)
[2022-01-21] MEDS: LORazepam 2 MG TAB PO PRN (02:53)
[2022-01-21] MEDS: LEVOTHYROXINE 88MCG TABLET (0.088 MG) PO SCH (05:34)
[2022-01-21] MEDS: HumaLOG INSULIN (NovoLOG) PER UNIT SC SCH ×4 (06:43→21:00)
[2022-01-21 07:04] VITALS: BP 114/60
[2022-01-21] MEDS: SUCRALFATE 1 GM TAB PO SCH ×2 (07:51→17:28)
[2022-01-21] MEDS: ASPIRIN 81MG ENTERIC TABLET PO SCH (09:02)
[2022-01-21] MEDS: GABAPENTIN 100 MG CAP PO SCH ×3 (09:02→21:08)
[2022-01-21] MEDS: DULoxetine 30MG CAPSULE (CYMBALTA) PO SCH (09:02)
[2022-01-21] MEDS: OMEPRAZOLE 20MG CAP PO SCH (09:03)
[2022-01-21] MEDS: BENZTROPINE 1 MG TAB PO SCH ×2 (09:03→21:09)
[2022-01-21] MEDS: LEVEMIR (INSULIN DETEMIR) 1 UNITS/0.01ML SC SCH ×2 (09:03→21:11)
[2022-01-21] MEDS: atenoloL 50 MG TAB PO SCH (09:03)
[2022-01-21] MEDS: OMEGA-3 1000MG CAPSULE PO SCH (09:03)
[2022-01-21] MEDS: FUROSEMIDE 20 MG TAB PO SCH (09:03)
[2022-01-21] MEDS: VITAMIN D 1,000 INTERNATIONAL UNITS TABLET PO SCH (09:03)
[2022-01-21 18:06] VITALS: BP 121/65
[2022-01-21] MEDS: PRAZOSIN 1 MG CAP PO SCH (21:08)
[2022-01-21] MEDS: LITHIUM CARBONATE 300 MG CAP PO SCH (21:08)
[2022-01-21] MEDS: amLODIPine 5 MG TAB PO SCH (21:08)
[2022-01-21] MEDS: ATORVASTATIN 20 MG TAB PO SCH (21:08)
[2022-01-21] MEDS ORDERED: traMADol 50 MG TAB PO ONE (23:00)
[2022-01-22] MEDS: LORazepam 2 MG TAB PO PRN ×2 (02:48→14:11)
[2022-01-22] MEDS: LEVOTHYROXINE 88MCG TABLET (0.088 MG) PO SCH (05:32)
[2022-01-22] MEDS: HumaLOG INSULIN (NovoLOG) PER UNIT SC SCH ×4 (06:27→20:29)
[2022-01-22 06:30] VITALS: BP 127/67
[2022-01-22] MEDS: SUCRALFATE 1 GM TAB PO SCH ×2 (07:50→17:23)
[2022-01-22 08:26] LABS: BASO % 0.5 % (0.0-1.0); EOS # 0.2 10^3/uL (0.0-0.5); EOS % 2.4 % (0.0-3.0); HEMATOCRIT 40.6 % (36.0-47.0); HEMOGLOBIN 13.1 g/dl (12.0-15.5); LYMPH # 1.8 10^3/uL (1.5-5.0); MEAN CORPUSCULAR HEMOGLOBIN 28.7 pg (27.0-33.0); MEAN CORPUSCULAR HGB CONC 32.3 g/dl (32.0-36.5); MEAN CORPUSCULAR VOLUME 88.8 fl (80.0-96.0); MONO # 0.5 10^3/uL (0.0-0.8); MONO % 6.1 % (2.0-8.0); NEUTROPHILS % 66.7 % (36.0-66.0); PLATELET COUNT, AUTOMATED 261 10^3/uL (150-450); RED BLOOD COUNT 4.57 10^6/uL (4.00-5.40); WHITE BLOOD COUNT 7.5 10^3/uL (4.0-10.0)
[2022-01-22 08:57] LABS: BLOOD UREA NITROGEN 10 MG/DL (7-18); C REACTIVE PROTEIN QUANTITATIV 0.82 MG/DL (0.00-0.30); CALCIUM LEVEL 9.3 MG/DL (8.5-10.1); CARBON DIOXIDE LEVEL 30 MEQ/L (21-32); CHLORIDE LEVEL 109 MEQ/L (98-107); GLOMERULAR FILTRATION RATE > 60.0 (>58); GLUCOSE, FASTING 170 MG/DL (70-100); POTASSIUM SERUM 3.9 MEQ/L (3.5-5.1); SODIUM LEVEL 142 MEQ/L (136-145)
[2022-01-22] MEDS: VITAMIN D 1,000 INTERNATIONAL UNITS TABLET PO SCH (09:19)
[2022-01-22] MEDS: ASPIRIN 81MG ENTERIC TABLET PO SCH (09:19)
[2022-01-22] MEDS: OMEGA-3 1000MG CAPSULE PO SCH (09:19)
[2022-01-22] MEDS: BENZTROPINE 1 MG TAB PO SCH ×2 (09:19→20:29)
[2022-01-22] MEDS: DULoxetine 30MG CAPSULE (CYMBALTA) PO SCH (09:19)
[2022-01-22] MEDS: OMEPRAZOLE 20MG CAP PO SCH (09:19)
[2022-01-22] MEDS: atenoloL 50 MG TAB PO SCH (09:21)
[2022-01-22] MEDS: GABAPENTIN 100 MG CAP PO SCH ×3 (09:21→20:30)
[2022-01-22] MEDS: LEVEMIR (INSULIN DETEMIR) 1 UNITS/0.01ML SC SCH ×2 (09:21→20:28)
[2022-01-22] MEDS: IBUPROFEN 400MG TAB PO PRN (11:05)
[2022-01-22 18:25] VITALS: BP 119/60
[2022-01-22] MEDS: LITHIUM CARBONATE 300 MG CAP PO SCH (20:29)
[2022-01-22] MEDS: amLODIPine 5 MG TAB PO SCH (20:30)
[2022-01-22] MEDS: PRAZOSIN 1 MG CAP PO SCH (20:30)
[2022-01-22] MEDS: ATORVASTATIN 20 MG TAB PO SCH (20:30)
[2022-01-23] MEDS: LORazepam 2 MG TAB PO PRN (05:06)
[2022-01-23] MEDS: LEVOTHYROXINE 88MCG TABLET (0.088 MG) PO SCH (05:06)
[2022-01-23 06:46] VITALS: BP 140/70
[2022-01-23] MEDS: HumaLOG INSULIN (NovoLOG) PER UNIT SC SCH ×4 (06:58→21:00)
[2022-01-23] MEDS: VITAMIN D 1,000 INTERNATIONAL UNITS TABLET PO SCH (08:13)
[2022-01-23] MEDS: ASPIRIN 81MG ENTERIC TABLET PO SCH (08:13)
[2022-01-23] MEDS: DULoxetine 30MG CAPSULE (CYMBALTA) PO SCH (08:13)
[2022-01-23] MEDS: LEVEMIR (INSULIN DETEMIR) 1 UNITS/0.01ML SC SCH ×2 (08:13→21:17)
[2022-01-23] MEDS: GABAPENTIN 100 MG CAP PO SCH ×3 (08:13→21:18)
[2022-01-23] MEDS: BENZTROPINE 1 MG TAB PO SCH ×2 (08:13→21:18)
[2022-01-23] MEDS: OMEGA-3 1000MG CAPSULE PO SCH (08:14)
[2022-01-23] MEDS: OMEPRAZOLE 20MG CAP PO SCH (08:14)
[2022-01-23] MEDS: SUCRALFATE 1 GM TAB PO SCH ×2 (08:14→17:06)
[2022-01-23] MEDS: FUROSEMIDE 20 MG TAB PO SCH (08:14)
[2022-01-23] MEDS: atenoloL 50 MG TAB PO SCH (08:14)
[2022-01-23 16:16] VITALS: BP 122/64
[2022-01-23] MEDS: ARIPiprazole 2 MG TAB PO SCH (21:17)
[2022-01-23] MEDS: LITHIUM CARBONATE 300 MG CAP PO SCH (21:18)
[2022-01-23] MEDS: ATORVASTATIN 20 MG TAB PO SCH (21:18)
[2022-01-23] MEDS: PRAZOSIN 1 MG CAP PO SCH (21:18)
[2022-01-23] MEDS: amLODIPine 5 MG TAB PO SCH (21:23)
[2022-01-24] MEDS: LEVOTHYROXINE 88MCG TABLET (0.088 MG) PO SCH (05:57)
[2022-01-24 06:08] VITALS: BP 104/50
[2022-01-24] MEDS: HumaLOG INSULIN (NovoLOG) PER UNIT SC SCH ×4 (06:38→20:40)
[2022-01-24] MEDS: SUCRALFATE 1 GM TAB PO SCH ×2 (07:09→17:03)
[2022-01-24] MEDS: LORazepam 2 MG TAB PO PRN ×2 (07:10→13:51)
[2022-01-24 08:47] VITALS: BP 134/78
[2022-01-24] MEDS: OMEGA-3 1000MG CAPSULE PO SCH (08:49)
[2022-01-24] MEDS: VITAMIN D 1,000 INTERNATIONAL UNITS TABLET PO SCH (08:49)
[2022-01-24] MEDS: ASPIRIN 81MG ENTERIC TABLET PO SCH (08:50)
[2022-01-24] MEDS: BENZTROPINE 1 MG TAB PO SCH ×2 (08:50→20:38)
[2022-01-24] MEDS: OMEPRAZOLE 20MG CAP PO SCH (08:50)
[2022-01-24] MEDS: DULoxetine 30MG CAPSULE (CYMBALTA) PO SCH (08:50)
[2022-01-24] MEDS: GABAPENTIN 100 MG CAP PO SCH ×3 (08:50→20:39)
[2022-01-24] MEDS: atenoloL 50 MG TAB PO SCH (08:51)
[2022-01-24] MEDS: LEVEMIR (INSULIN DETEMIR) 1 UNITS/0.01ML SC SCH ×2 (08:56→20:40)
[2022-01-24 17:18] VITALS: BP 125/63
[2022-01-24] MEDS: amLODIPine 5 MG TAB PO SCH (20:38)
[2022-01-24] MEDS: ARIPiprazole 2 MG TAB PO SCH (20:38)
[2022-01-24] MEDS: PRAZOSIN 1 MG CAP PO SCH (20:39)
[2022-01-24] MEDS: ATORVASTATIN 20 MG TAB PO SCH (20:39)
[2022-01-24] MEDS: LITHIUM CARBONATE 300 MG CAP PO SCH (20:39)
[2022-01-25] MEDS: LEVOTHYROXINE 88MCG TABLET (0.088 MG) PO SCH (05:53)
[2022-01-25 06:22] VITALS: BP 121/76
[2022-01-25] MEDS: HumaLOG INSULIN (NovoLOG) PER UNIT SC SCH ×4 (06:53→20:07)
[2022-01-25] MEDS: DULoxetine 30MG CAPSULE (CYMBALTA) PO SCH (09:41)
[2022-01-25] MEDS: VITAMIN D 1,000 INTERNATIONAL UNITS TABLET PO SCH (09:41)
[2022-01-25] MEDS: BENZTROPINE 1 MG TAB PO SCH ×2 (09:41→20:08)
[2022-01-25] MEDS: GABAPENTIN 100 MG CAP PO SCH ×3 (09:41→20:08)
[2022-01-25] MEDS: FUROSEMIDE 20 MG TAB PO SCH (09:41)
[2022-01-25] MEDS: ASPIRIN 81MG ENTERIC TABLET PO SCH (09:41)
[2022-01-25] MEDS: LEVEMIR (INSULIN DETEMIR) 1 UNITS/0.01ML SC SCH ×2 (09:41→20:07)
[2022-01-25] MEDS: OMEPRAZOLE 20MG CAP PO SCH (09:41)
[2022-01-25] MEDS: atenoloL 50 MG TAB PO SCH (09:42)
[2022-01-25] MEDS: OMEGA-3 1000MG CAPSULE PO SCH (09:42)
[2022-01-25] MEDS: SUCRALFATE 1 GM TAB PO SCH ×2 (09:43→16:55)
[2022-01-25 17:33] VITALS: BP 133/63
[2022-01-25] MEDS: LORazepam 2 MG TAB PO PRN (18:34)
[2022-01-25] MEDS: ATORVASTATIN 20 MG TAB PO SCH (20:08)
[2022-01-25] MEDS: ARIPiprazole 2 MG TAB PO SCH (20:08)
[2022-01-25] MEDS: LITHIUM CARBONATE 300 MG CAP PO SCH (20:08)
[2022-01-25] MEDS: amLODIPine 5 MG TAB PO SCH (20:08)
[2022-01-25] MEDS: PRAZOSIN 1 MG CAP PO SCH (20:09)
[2022-01-26] MEDS: LEVOTHYROXINE 88MCG TABLET (0.088 MG) PO SCH (05:36)
[2022-01-26] MEDS: HumaLOG INSULIN (NovoLOG) PER UNIT SC SCH ×4 (06:32→21:00)
[2022-01-26 06:45] VITALS: BP 114/67
[2022-01-26] MEDS: LEVEMIR (INSULIN DETEMIR) 1 UNITS/0.01ML SC SCH ×2 (08:23→23:15)
[2022-01-26] MEDS: atenoloL 50 MG TAB PO SCH (08:23)
[2022-01-26] MEDS: VITAMIN D 1,000 INTERNATIONAL UNITS TABLET PO SCH (08:24)
[2022-01-26] MEDS: ASPIRIN 81MG ENTERIC TABLET PO SCH (08:24)
[2022-01-26] MEDS: SUCRALFATE 1 GM TAB PO SCH ×2 (08:24→17:11)
[2022-01-26] MEDS: OMEGA-3 1000MG CAPSULE PO SCH (08:25)
[2022-01-26] MEDS: BENZTROPINE 1 MG TAB PO SCH ×2 (08:25→23:14)
[2022-01-26] MEDS: DULoxetine 30MG CAPSULE (CYMBALTA) PO SCH (08:25)
[2022-01-26] MEDS: GABAPENTIN 100 MG CAP PO SCH ×3 (08:26→23:13)
[2022-01-26] MEDS: OMEPRAZOLE 20MG CAP PO SCH (09:06)
[2022-01-26] MEDS: LORazepam 2 MG TAB PO PRN (09:38)
[2022-01-26 18:00] VITALS: BP 120/56
[2022-01-26] MEDS: ATORVASTATIN 20 MG TAB PO SCH (23:12)
[2022-01-26] MEDS: amLODIPine 5 MG TAB PO SCH (23:13)
[2022-01-26] MEDS: PRAZOSIN 1 MG CAP PO SCH (23:14)
[2022-01-26] MEDS: LITHIUM CARBONATE 300 MG CAP PO SCH (23:14)
[2022-01-27] MEDS: LEVOTHYROXINE 88MCG TABLET (0.088 MG) PO SCH (05:29)
[2022-01-27 06:00] VITALS: BP 134/69
[2022-01-27] MEDS: LORazepam 2 MG TAB PO PRN (07:05)
[2022-01-27] MEDS: HumaLOG INSULIN (NovoLOG) PER UNIT SC SCH ×4 (07:06→20:22)
[2022-01-27] MEDS: OMEGA-3 1000MG CAPSULE PO SCH (10:22)
[2022-01-27] MEDS: LEVEMIR (INSULIN DETEMIR) 1 UNITS/0.01ML SC SCH ×2 (10:22→20:23)
[2022-01-27] MEDS: VITAMIN D 1,000 INTERNATIONAL UNITS TABLET PO SCH (10:22)
[2022-01-27] MEDS: ASPIRIN 81MG ENTERIC TABLET PO SCH (10:23)
[2022-01-27] MEDS: BENZTROPINE 1 MG TAB PO SCH ×2 (10:23→20:23)
[2022-01-27] MEDS: GABAPENTIN 100 MG CAP PO SCH ×3 (10:23→20:24)
[2022-01-27] MEDS: DULoxetine 30MG CAPSULE (CYMBALTA) PO SCH (10:23)
[2022-01-27] MEDS: FUROSEMIDE 20 MG TAB PO SCH (10:23)
[2022-01-27] MEDS: OMEPRAZOLE 20MG CAP PO SCH (10:23)
[2022-01-27] MEDS: SUCRALFATE 1 GM TAB PO SCH ×2 (10:23→17:02)
[2022-01-27] MEDS: atenoloL 50 MG TAB PO SCH (12:12)
[2022-01-27 18:00] VITALS: BP 157/80
[2022-01-27] MEDS: PRAZOSIN 1 MG CAP PO SCH (20:23)
[2022-01-27] MEDS: LITHIUM CARBONATE 300 MG CAP PO SCH (20:24)
[2022-01-27] MEDS: amLODIPine 5 MG TAB PO SCH (20:24)
[2022-01-27] MEDS: ATORVASTATIN 20 MG TAB PO SCH (20:24)
[2022-01-28] MEDS: LORazepam 2 MG TAB PO PRN ×2 (04:55→17:15)
[2022-01-28] MEDS: LEVOTHYROXINE 88MCG TABLET (0.088 MG) PO SCH (05:05)
[2022-01-28] MEDS: HumaLOG INSULIN (NovoLOG) PER UNIT SC SCH ×4 (06:40→20:26)
[2022-01-28 06:59] VITALS: BP 138/64
[2022-01-28] MEDS: ASPIRIN 81MG ENTERIC TABLET PO SCH (08:23)
[2022-01-28] MEDS: VITAMIN D 1,000 INTERNATIONAL UNITS TABLET PO SCH (08:24)
[2022-01-28] MEDS: OMEGA-3 1000MG CAPSULE PO SCH (08:24)
[2022-01-28] MEDS: DULoxetine 30MG CAPSULE (CYMBALTA) PO SCH (08:24)
[2022-01-28] MEDS: OMEPRAZOLE 20MG CAP PO SCH (08:24)
[2022-01-28] MEDS: GABAPENTIN 100 MG CAP PO SCH ×3 (08:24→20:27)
[2022-01-28] MEDS: SUCRALFATE 1 GM TAB PO SCH ×2 (08:24→17:04)
[2022-01-28] MEDS: BENZTROPINE 1 MG TAB PO SCH ×2 (08:24→20:27)
[2022-01-28] MEDS: atenoloL 50 MG TAB PO SCH (08:25)
[2022-01-28] MEDS: LEVEMIR (INSULIN DETEMIR) 1 UNITS/0.01ML SC SCH ×2 (08:26→20:26)
[2022-01-28] MEDS: ALBUTEROL 90 MCG/ACT 8GM HFA INHALER INH PRN ×2 (10:48→17:16)
[2022-01-28 16:06] VITALS: BP 131/71
[2022-01-28] MEDS: amLODIPine 5 MG TAB PO SCH (20:27)
[2022-01-28] MEDS: PRAZOSIN 1 MG CAP PO SCH (20:27)
[2022-01-28] MEDS: ATORVASTATIN 20 MG TAB PO SCH (20:27)
[2022-01-28] MEDS: LITHIUM CARBONATE 300 MG CAP PO SCH (20:28)
[2022-01-29] MEDS: LEVOTHYROXINE 88MCG TABLET (0.088 MG) PO SCH (05:36)
[2022-01-29] MEDS: LORazepam 2 MG TAB PO PRN ×2 (05:38→12:37)
[2022-01-29 06:11] VITALS: BP 122/62
[2022-01-29] MEDS: HumaLOG INSULIN (NovoLOG) PER UNIT SC SCH ×4 (06:47→21:00)
[2022-01-29] MEDS: SUCRALFATE 1 GM TAB PO SCH ×2 (08:00→17:16)
[2022-01-29] MEDS: GABAPENTIN 100 MG CAP PO SCH ×3 (10:02→21:06)
[2022-01-29] MEDS: ASPIRIN 81MG ENTERIC TABLET PO SCH (10:02)
[2022-01-29] MEDS: LEVEMIR (INSULIN DETEMIR) 1 UNITS/0.01ML SC SCH ×2 (10:02→21:05)
[2022-01-29] MEDS: FUROSEMIDE 20 MG TAB PO SCH (10:03)
[2022-01-29] MEDS: DULoxetine 30MG CAPSULE (CYMBALTA) PO SCH (10:03)
[2022-01-29] MEDS: BENZTROPINE 1 MG TAB PO SCH ×2 (10:03→21:06)
[2022-01-29] MEDS: OMEGA-3 1000MG CAPSULE PO SCH (10:03)
[2022-01-29] MEDS: OMEPRAZOLE 20MG CAP PO SCH (10:03)
[2022-01-29] MEDS: atenoloL 50 MG TAB PO SCH (10:03)
[2022-01-29] MEDS: VITAMIN D 1,000 INTERNATIONAL UNITS TABLET PO SCH (10:04)
[2022-01-29 13:46] VITALS: BP 145/64
[2022-01-29 15:46] VITALS: BP 145/64
[2022-01-29] MEDS: PRAZOSIN 1 MG CAP PO SCH (21:06)
[2022-01-29] MEDS: ATORVASTATIN 20 MG TAB PO SCH (21:06)
[2022-01-29] MEDS: LITHIUM CARBONATE 300 MG CAP PO SCH (21:06)
[2022-01-29] MEDS: amLODIPine 5 MG TAB PO SCH (21:06)
[2022-01-30] MEDS: LORazepam 2 MG TAB PO PRN (04:15)
[2022-01-30] MEDS: LEVOTHYROXINE 88MCG TABLET (0.088 MG) PO SCH (05:33)
[2022-01-30 06:19] VITALS: BP 149/78
[2022-01-30] MEDS: HumaLOG INSULIN (NovoLOG) PER UNIT SC SCH ×4 (06:43→21:00)
[2022-01-30] MEDS: SUCRALFATE 1 GM TAB PO SCH ×2 (08:52→17:22)
[2022-01-30] MEDS: NYSTATIN 100,000 UNITS/GM TOPICAL PWD 15 GM TOP SCH ×2 (09:00→21:00)
[2022-01-30] MEDS: BENZTROPINE 1 MG TAB PO SCH ×2 (09:27→21:26)
[2022-01-30] MEDS: VITAMIN D 1,000 INTERNATIONAL UNITS TABLET PO SCH (09:27)
[2022-01-30] MEDS: ASPIRIN 81MG ENTERIC TABLET PO SCH (09:27)
[2022-01-30] MEDS: DULoxetine 30MG CAPSULE (CYMBALTA) PO SCH (09:27)
[2022-01-30] MEDS: OMEPRAZOLE 20MG CAP PO SCH (09:27)
[2022-01-30] MEDS: GABAPENTIN 100 MG CAP PO SCH ×3 (09:27→21:26)
[2022-01-30] MEDS: OMEGA-3 1000MG CAPSULE PO SCH (09:27)
[2022-01-30] MEDS: LEVEMIR (INSULIN DETEMIR) 1 UNITS/0.01ML SC SCH ×2 (09:28→21:27)
[2022-01-30] MEDS: atenoloL 50 MG TAB PO SCH (09:28)
[2022-01-30 19:25] VITALS: BP 126/69
[2022-01-30] MEDS: ATORVASTATIN 20 MG TAB PO SCH (21:26)
[2022-01-30] MEDS: PRAZOSIN 1 MG CAP PO SCH (21:26)
[2022-01-30] MEDS: LITHIUM CARBONATE 300 MG CAP PO SCH (21:26)
[2022-01-30] MEDS: amLODIPine 5 MG TAB PO SCH (21:26)
[2022-01-31] MEDS: LEVOTHYROXINE 88MCG TABLET (0.088 MG) PO SCH (05:14)
[2022-01-31] MEDS: LORazepam 2 MG TAB PO PRN (05:16)
[2022-01-31] MEDS: HumaLOG INSULIN (NovoLOG) PER UNIT SC SCH ×4 (06:49→21:00)
[2022-01-31 07:16] VITALS: BP 119/76
[2022-01-31] MEDS: SUCRALFATE 1 GM TAB PO SCH ×2 (07:38→17:11)
[2022-01-31] MEDS: DULoxetine 30MG CAPSULE (CYMBALTA) PO SCH (07:39)
[2022-01-31] MEDS: FUROSEMIDE 20 MG TAB PO SCH (07:39)
[2022-01-31] MEDS: BENZTROPINE 1 MG TAB PO SCH ×2 (07:39→21:28)
[2022-01-31] MEDS: GABAPENTIN 100 MG CAP PO SCH ×3 (07:40→21:26)
[2022-01-31] MEDS: ASPIRIN 81MG ENTERIC TABLET PO SCH (07:40)
[2022-01-31] MEDS: OMEGA-3 1000MG CAPSULE PO SCH (07:41)
[2022-01-31] MEDS: OMEPRAZOLE 20MG CAP PO SCH (07:41)
[2022-01-31] MEDS: VITAMIN D 1,000 INTERNATIONAL UNITS TABLET PO SCH (07:42)
[2022-01-31] MEDS: atenoloL 50 MG TAB PO SCH (07:44)
[2022-01-31] MEDS: LEVEMIR (INSULIN DETEMIR) 1 UNITS/0.01ML SC SCH ×2 (07:49→21:28)
[2022-01-31] MEDS: NYSTATIN 100,000 UNITS/GM TOPICAL PWD 15 GM TOP SCH ×2 (08:46→21:00)
[2022-01-31] MEDS ORDERED: PALIPERIDONE PALMITATE 234MG/1.5ML INJ (INVEGA)(FREE PSY INPT ONLY) IM ONE (09:00)
[2022-01-31 19:23] VITALS: BP 138/83
[2022-01-31] MEDS: amLODIPine 5 MG TAB PO SCH (21:27)
[2022-01-31] MEDS: LITHIUM CARBONATE 300 MG CAP PO SCH (21:27)
[2022-01-31] MEDS: PRAZOSIN 1 MG CAP PO SCH (21:27)
[2022-01-31] MEDS: ATORVASTATIN 20 MG TAB PO SCH (21:28)
[2022-02-01] MEDS: LEVOTHYROXINE 88MCG TABLET (0.088 MG) PO SCH (05:33)
[2022-02-01] MEDS: LORazepam 2 MG TAB PO PRN (06:31)
[2022-02-01] MEDS: HumaLOG INSULIN (NovoLOG) PER UNIT SC SCH ×2 (06:33→11:40)
[2022-02-01 06:55] VITALS: BP 126/69
[2022-02-01] MEDS ORDERED: OMEP-173 PO ×2 (09:59→11:34)
[2022-02-01] MEDS ORDERED: FLUTISP ×2 (09:59→11:34)
[2022-02-01] MEDS ORDERED: AMLO1TAB24 PO ×2 (09:59→11:34)
[2022-02-01] MEDS ORDERED: FISH1000 PO (09:59)
[2022-02-01] MEDS ORDERED: VITA100093 PO (09:59)
[2022-02-01] MEDS ORDERED: ATEN100T PO ×2 (09:59→11:34)
[2022-02-01] MEDS ORDERED: CETI-24 PO (09:59)
[2022-02-01] MEDS ORDERED: METH-1164 PO ×2 (09:59→11:34)
[2022-02-01] MEDS ORDERED: MECL-86 PO (09:59)
[2022-02-01] MEDS ORDERED: ATOR40TA75 PO ×2 (09:59→11:34)
[2022-02-01] MEDS ORDERED: FURO20TA2 PO ×2 (09:59→11:34)
[2022-02-01] MEDS ORDERED: FOLI1TAB11 PO ×2 (09:59→12:03)
[2022-02-01] MEDS ORDERED: ALBU8.5H INH (09:59)
[2022-02-01] MEDS ORDERED: LITH300C PO ×2 (09:59→11:34)
[2022-02-01] MEDS ORDERED: ASPI-226 PO (09:59)
[2022-02-01] MEDS ORDERED: INVE234I IM ×2 (09:59→11:45)
[2022-02-01] MEDS ORDERED: BASA100I SC ×4 (09:59→12:03)
[2022-02-01] MEDS ORDERED: LORA-930 PO (09:59)
[2022-02-01] MEDS ORDERED: LEVO88TA3 PO (09:59)
[2022-02-01] MEDS ORDERED: DULO1CAP5 PO (09:59)
[2022-02-01] MEDS ORDERED: GABA-1171 PO ×2 (09:59→11:34)
[2022-02-01] MEDS ORDERED: BENZ-52 PO ×2 (09:59→11:34)
[2022-02-01] MEDS ORDERED: ADME100I SC (09:59)
[2022-02-01] MEDS ORDERED: SUCR1TA PO ×2 (09:59→11:34)
[2022-02-01] MEDS ORDERED: FERR325T3 PO ×2 (09:59→12:03)
[2022-02-01] MEDS: SUCRALFATE 1 GM TAB PO SCH (10:15)
[2022-02-01] MEDS: VITAMIN D 1,000 INTERNATIONAL UNITS TABLET PO SCH (10:15)
[2022-02-01] MEDS: GABAPENTIN 100 MG CAP PO SCH (10:15)
[2022-02-01] MEDS: BENZTROPINE 1 MG TAB PO SCH (10:15)
[2022-02-01 10:16] VITALS: BP 126/69
[2022-02-01] MEDS: DULoxetine 30MG CAPSULE (CYMBALTA) PO SCH (10:16)
[2022-02-01] MEDS: OMEGA-3 1000MG CAPSULE PO SCH (10:16)
[2022-02-01] MEDS: atenoloL 50 MG TAB PO SCH (10:16)
[2022-02-01] MEDS: ASPIRIN 81MG ENTERIC TABLET PO SCH (10:16)
[2022-02-01] MEDS: OMEPRAZOLE 20MG CAP PO SCH (10:16)
[2022-02-01] MEDS: LEVEMIR (INSULIN DETEMIR) 1 UNITS/0.01ML SC SCH (10:17)
[2022-02-01] MEDS: NYSTATIN 100,000 UNITS/GM TOPICAL PWD 15 GM TOP SCH (10:18)
[2022-02-01] MEDS ORDERED: SYNT88TA2 PO (11:34)
[2022-02-01] MEDS ORDERED: CYMB1CAP5 PO (11:34)
[2022-02-01] MEDS ORDERED: VENTAER INH (11:34)
[2022-02-01] MEDS ORDERED: ASPI-551 PO (11:34)
[2022-02-01] MEDS ORDERED: VITAD1000T PO (11:34)
[2022-02-01] MEDS ORDERED: FISH1CAP26 PO (11:34)
[2022-02-01] MEDS ORDERED: ABIL1TAB11 PO (11:34)
[2022-02-01] MEDS ORDERED: INSUDET SC (11:45)
[2022-02-01] MEDS ORDERED: CETI10CH PO (12:03)
[2022-02-01] MEDS ORDERED: INSU100V2 SQ (12:03)
== END 2022-02-01 11:54 | disposition home or self-care (01) | DRG 753 ==
LOC: EDBD 01:51 → M ED 01:51 → M PSY 16:42 → OBSVTOIN 16:42 → M PSY 18:11
PROVIDERS: ADMIT Psychiatry & Neurology Psychiatry; ATTEND Psychiatry & Neurology Psychiatry
DX: F31.10 Bipolar disorder, current episode manic without psychotic features, unspecified (principal); G62.9 Polyneuropathy, unspecified; Z68.42 Body mass index [BMI] 45.0-49.9, adult; E66.01 Morbid (severe) obesity due to excess calories; K86.1 Other chronic pancreatitis; E11.40 Type 2 diabetes mellitus with diabetic neuropathy, unspecified; K76.0 Fatty (change of) liver, not elsewhere classified; F79 Unspecified intellectual disabilities; F12.90 Cannabis use, unspecified, uncomplicated; F60.3 Borderline personality disorder; Z79.899 Other long term (current) drug therapy; Z79.82 Long term (current) use of aspirin; Z88.2 Allergy status to sulfonamides; Z88.8 Allergy status to other drugs, medicaments and biological substances; I10 Essential (primary) hypertension; K21.9 Gastro-esophageal reflux disease without esophagitis; F41.9 Anxiety disorder, unspecified; E03.9 Hypothyroidism, unspecified; Z79.4 Long term (current) use of insulin

== ENCOUNTER 2022-02-10 05:49 | Inpatient (IN) | payer MEDICAID, OTHER ==
[~2022-02-10] VITALS: Ht 170.2 cm; Wt 128.3 kg
[~2022-02-10 05:49] MED LIST changes: +BENZ-52 PO; +CETI-24 PO; +CYMB1CAP5 PO; +FISH1CAP26 PO; +INSU100V2 SQ; +INSUDET SC; +MECL-86 PO; +OLAN20TA14 PO; +POTA10TA67 PO; +SUCR1TA PO; +VITAD1000T PO
[2022-02-10 07:14] LABS: AMPHETAMINES LEVEL URINE NEGATIVE (NEGATIVE); BARBITURATES URINE NEGATIVE (NEGATIVE); BENZODIAZEPINES URINE NEGATIVE (NEGATIVE); CANNABINOIDS URINE NEGATIVE (NEGATIVE); COCAINE METABOLITE URINE NEGATIVE (NEGATIVE); METHADONE URINE NEGATIVE (NEGATIVE); OPIATES URINE NEGATIVE (NEGATIVE); PHENCYCLIDINE URINE NEGATIVE (NEGATIVE)
[2022-02-10 07:16] LABS: RSV AMPLIFICATION NEGATIVE (NEGATIVE)
[2022-02-10 07:27] LABS: ACETAMINOPHEN LEVEL < 2.0 UG/ML (10.0-30.0); ALBUMIN 3.4 GM/DL (3.2-5.2); ALT/SGPT 35 U/L (12-78); BILIRUBIN,DIRECT 0.1 MG/DL (0.0-0.2); BILIRUBIN,TOTAL 0.4 MG/DL (0.2-1.0); BLOOD UREA NITROGEN 9 MG/DL (7-18); CALCIUM LEVEL 9.6 MG/DL (8.5-10.1); CARBON DIOXIDE LEVEL 24 MEQ/L (21-32); CHLORIDE LEVEL 111 MEQ/L (98-107); CREATININE FOR GFR 0.72 MG/DL (0.55-1.30); ETHYL ALCOHOL (ETHANOL) < 0.003 % (0.000-0.010); GLOMERULAR FILTRATION RATE > 60.0 (>58); GLUCOSE, FASTING 293 MG/DL (70-100); POTASSIUM SERUM 3.9 MEQ/L (3.5-5.1); SALICYLATE LEVEL < 1.7 MG/DL (5.0-30.0); SODIUM LEVEL 143 MEQ/L (136-145); TOTAL PROTEIN 6.9 GM/DL (6.4-8.2)
[2022-02-10 08:21] LABS: HEMATOCRIT 39.2 % (36.0-47.0); MEAN CORPUSCULAR HEMOGLOBIN 29.1 pg (27.0-33.0); MEAN CORPUSCULAR HGB CONC 33.2 g/dl (32.0-36.5); MEAN CORPUSCULAR VOLUME 87.9 fl (80.0-96.0); PLATELET COUNT, AUTOMATED 278 10^3/uL (150-450); RED BLOOD COUNT 4.46 10^6/uL (4.00-5.40); WHITE BLOOD COUNT 6.3 10^3/uL (4.0-10.0)
[2022-02-10] MEDS ORDERED: FLUT15.820 (11:18)
[2022-02-10] MEDS ORDERED: POTA10CA32 PO (11:18)
[2022-02-10] MEDS ORDERED: ATEN100T PO (11:18)
[2022-02-10] MEDS ORDERED: AMLO1TAB24 PO (11:18)
[2022-02-10] MEDS ORDERED: FOLI1TAB11 PO (11:18)
[2022-02-10] MEDS ORDERED: SUCR1TAB56 PO (11:18)
[2022-02-10] MEDS ORDERED: DULO1CAP6 PO (11:18)
[2022-02-10] MEDS ORDERED: FURO20TA2 PO (11:18)
[2022-02-10] MEDS ORDERED: BENZ-52 PO (11:18)
[2022-02-10] MEDS ORDERED: INSUH10VL SQ (11:18)
[2022-02-10] MEDS ORDERED: BASA100I SQ (11:18)
[2022-02-10] MEDS ORDERED: OMEP1CAP73 PO (11:18)
[2022-02-10] MEDS ORDERED: ARIP1TAB6 PO (11:18)
[2022-02-10] MEDS ORDERED: GABA-1171 PO (11:18)
[2022-02-10] MEDS ORDERED: D 101000 PO (11:18)
[2022-02-10] MEDS ORDERED: LITH150C PO (11:18)
[2022-02-10] MEDS ORDERED: CETI-24 PO (11:18)
[2022-02-10] MEDS ORDERED: MELO15TA28 PO (11:18)
[2022-02-10] MEDS ORDERED: MECL-86 PO (11:18)
[2022-02-10] MEDS ORDERED: METH-1164 PO (11:18)
[2022-02-10] MEDS ORDERED: LITH300C PO (11:18)
[2022-02-10] MEDS ORDERED: FERR325T3 PO (11:18)
[2022-02-10] MEDS ORDERED: VENTAER INH (11:18)
[2022-02-10] MEDS ORDERED: LEVO88TA3 PO (11:18)
[2022-02-10] MEDS ORDERED: INVE234I IM (11:27)
[2022-02-10] MEDS ORDERED: HOME MED LIST COMPLETE! XX SCH (11:30)
[2022-02-10] MEDS ORDERED: MAALOX 30 ML SUSP *UDC PO PRN (16:45)
[2022-02-10] MEDS ORDERED: ACETAMINOPHEN TAB 650MG DOSE (2X325MG) PO PRN (16:45)
[2022-02-10] MEDS ORDERED: MECLIZINE 25 MG TABLET PO PRN (16:45)
[2022-02-10] MEDS ORDERED: DEXTROSE 50% 50 ML SYRINGE IV PRN (17:05)
[2022-02-10] MEDS ORDERED: GLUCOSE 4GM CHEW TABLET PO PRN (17:05)
[2022-02-10] MEDS ORDERED: GLUCAGON INJ 1MG VIAL SC PRN (17:05)
[2022-02-10] MEDS ORDERED: INSULIN LISPRO (NovoLOG) PER UNIT SQ SCH (17:30)
[2022-02-10] MEDS: amLODIPine 5 MG TAB PO SCH (17:59)
[2022-02-10] MEDS: INSULIN LISPRO (NovoLOG) PER UNIT SC SCH ×2 (18:01→22:13)
[2022-02-10] MEDS: POTASSIUM CHLORIDE 10MEQ SR TABLET PO SCH (19:50)
[2022-02-10] MEDS: GABAPENTIN 100 MG CAP PO SCH (19:50)
[2022-02-10] MEDS: SUCRALFATE 1 GM TAB PO SCH (19:50)
[2022-02-10] MEDS: LITHIUM CARBONATE 300 MG CAP PO SCH (19:51)
[2022-02-10] MEDS: LORazepam 2 MG TAB PO PRN (19:51)
[2022-02-10] MEDS: methocarbamoL 500 MG TAB PO SCH (20:58)
[2022-02-10] MEDS: LITHIUM CARBONATE 150 MG CAP PO SCH (20:58)
[2022-02-10] MEDS: MELOXICAM (MOBIC) 7.5 MG TAB PO SCH (20:59)
[2022-02-11 06:16] VITALS: BP 135/92
[2022-02-11] MEDS: LEVOTHYROXINE 88MCG TABLET (0.088 MG) PO SCH (06:34)
[2022-02-11] MEDS: INSULIN LISPRO (NovoLOG) PER UNIT SC SCH ×4 (06:34→20:11)
[2022-02-11 08:46] VITALS: BP 135/92
[2022-02-11] MEDS: DULoxetine 30MG CAPSULE (CYMBALTA) PO SCH (10:28)
[2022-02-11] MEDS: SUCRALFATE 1 GM TAB PO SCH ×2 (10:28→20:05)
[2022-02-11] MEDS: FERROUS SULFATE 325MG TAB PO SCH (10:28)
[2022-02-11] MEDS: POTASSIUM CHLORIDE 10MEQ SR TABLET PO SCH ×2 (10:28→20:05)
[2022-02-11] MEDS: methocarbamoL 500 MG TAB PO SCH ×2 (10:28→20:05)
[2022-02-11] MEDS: GABAPENTIN 100 MG CAP PO SCH ×3 (10:28→20:05)
[2022-02-11] MEDS: FOLIC ACID 1 MG TAB PO SCH (10:29)
[2022-02-11] MEDS: atenoloL 50 MG TAB PO SCH (10:29)
[2022-02-11] MEDS: OMEPRAZOLE 20MG CAP PO SCH (10:29)
[2022-02-11] MEDS: FUROSEMIDE 20 MG TAB PO SCH (10:29)
[2022-02-11] MEDS: LITHIUM CARBONATE 300 MG CAP PO SCH ×2 (10:30→20:05)
[2022-02-11] MEDS: CETIRIZINE (ZyrTEC) 10 MG TAB PO SCH (10:30)
[2022-02-11] MEDS: LITHIUM CARBONATE 150 MG CAP PO SCH ×2 (10:30→20:05)
[2022-02-11 12:56] LABS: HEMOGLOBIN A1c 8.2 %
[2022-02-11] MEDS: MELOXICAM (MOBIC) 7.5 MG TAB PO SCH (17:40)
[2022-02-11] MEDS: amLODIPine 5 MG TAB PO SCH (17:41)
[2022-02-11 18:33] VITALS: BP 122/75
[2022-02-11] MEDS: traZODone 50 MG TAB PO PRN (20:05)
[2022-02-11] MEDS: LEVEMIR (INSULIN DETEMIR) 1 UNITS/0.01ML SC SCH (20:10)
[2022-02-11] MEDS: LORazepam 2 MG TAB PO PRN (20:29)
[2022-02-12] MEDS: LEVOTHYROXINE 88MCG TABLET (0.088 MG) PO SCH (06:26)
[2022-02-12 06:31] VITALS: BP 130/66
[2022-02-12] MEDS: INSULIN LISPRO (NovoLOG) PER UNIT SC SCH ×4 (06:32→20:33)
[2022-02-12] MEDS: OMEPRAZOLE 20MG CAP PO SCH (09:07)
[2022-02-12] MEDS: methocarbamoL 500 MG TAB PO SCH ×2 (09:07→20:32)
[2022-02-12] MEDS: atenoloL 50 MG TAB PO SCH (09:07)
[2022-02-12] MEDS: CETIRIZINE (ZyrTEC) 10 MG TAB PO SCH (09:07)
[2022-02-12] MEDS: SUCRALFATE 1 GM TAB PO SCH ×2 (09:07→20:32)
[2022-02-12] MEDS: DULoxetine 30MG CAPSULE (CYMBALTA) PO SCH (09:07)
[2022-02-12] MEDS: GABAPENTIN 100 MG CAP PO SCH ×3 (09:07→20:32)
[2022-02-12] MEDS: FERROUS SULFATE 325MG TAB PO SCH (09:07)
[2022-02-12] MEDS: POTASSIUM CHLORIDE 10MEQ SR TABLET PO SCH ×2 (09:07→20:32)
[2022-02-12] MEDS: LITHIUM CARBONATE 150 MG CAP PO SCH ×2 (09:08→20:33)
[2022-02-12] MEDS: LITHIUM CARBONATE 300 MG CAP PO SCH ×2 (09:08→20:33)
[2022-02-12] MEDS: FOLIC ACID 1 MG TAB PO SCH (09:08)
[2022-02-12] MEDS: MELOXICAM (MOBIC) 7.5 MG TAB PO SCH (17:22)
[2022-02-12] MEDS: amLODIPine 5 MG TAB PO SCH (17:23)
[2022-02-12 18:42] VITALS: BP 122/67
[2022-02-12] MEDS: LEVEMIR (INSULIN DETEMIR) 1 UNITS/0.01ML SC SCH (20:32)
[2022-02-13] MEDS: LEVOTHYROXINE 88MCG TABLET (0.088 MG) PO SCH (05:02)
[2022-02-13 06:08] VITALS: BP 128/80
[2022-02-13] MEDS: INSULIN LISPRO (NovoLOG) PER UNIT SC SCH ×4 (06:33→20:26)
[2022-02-13] MEDS: LITHIUM CARBONATE 150 MG CAP PO SCH ×2 (08:57→20:25)
[2022-02-13] MEDS: FUROSEMIDE 20 MG TAB PO SCH (08:57)
[2022-02-13] MEDS: SUCRALFATE 1 GM TAB PO SCH ×2 (08:57→20:26)
[2022-02-13] MEDS: FERROUS SULFATE 325MG TAB PO SCH (08:57)
[2022-02-13] MEDS: POTASSIUM CHLORIDE 10MEQ SR TABLET PO SCH ×2 (08:57→20:25)
[2022-02-13] MEDS: atenoloL 50 MG TAB PO SCH (08:57)
[2022-02-13] MEDS: OMEPRAZOLE 20MG CAP PO SCH (08:57)
[2022-02-13] MEDS: FOLIC ACID 1 MG TAB PO SCH (08:57)
[2022-02-13] MEDS: CETIRIZINE (ZyrTEC) 10 MG TAB PO SCH (08:58)
[2022-02-13] MEDS: methocarbamoL 500 MG TAB PO SCH ×2 (08:58→20:25)
[2022-02-13] MEDS: LITHIUM CARBONATE 300 MG CAP PO SCH ×2 (08:58→20:25)
[2022-02-13] MEDS: GABAPENTIN 100 MG CAP PO SCH ×3 (08:58→20:26)
[2022-02-13] MEDS: DULoxetine 30MG CAPSULE (CYMBALTA) PO SCH (08:58)
[2022-02-13] MEDS: MOM 30ML SUSPENSION UDC PO PRN (09:43)
[2022-02-13] MEDS: MELOXICAM (MOBIC) 7.5 MG TAB PO SCH (17:09)
[2022-02-13] MEDS: amLODIPine 5 MG TAB PO SCH (17:10)
[2022-02-13 17:51] VITALS: BP 117/57
[2022-02-13] MEDS ORDERED: ALBUTEROL 90 MCG/ACT 8GM HFA INHALER INH PRN (18:30)
[2022-02-13] MEDS ORDERED: POLYVINYL ALCOHOL OPHTH SOLN 15 ML(LIQUITEARS) OU PRN (18:55)
[2022-02-13] MEDS: LEVEMIR (INSULIN DETEMIR) 1 UNITS/0.01ML SC SCH (20:27)
[2022-02-13] MEDS: LORazepam 2 MG TAB PO PRN (21:42)
[2022-02-13] MEDS: traZODone 50 MG TAB PO PRN (21:42)
[2022-02-14] MEDS: LEVOTHYROXINE 88MCG TABLET (0.088 MG) PO SCH (06:44)
[2022-02-14] MEDS: INSULIN LISPRO (NovoLOG) PER UNIT SC SCH ×4 (06:49→21:00)
[2022-02-14] MEDS: FERROUS SULFATE 325MG TAB PO SCH (08:34)
[2022-02-14] MEDS: GABAPENTIN 100 MG CAP PO SCH ×3 (08:34→21:58)
[2022-02-14] MEDS: SUCRALFATE 1 GM TAB PO SCH ×2 (08:34→21:58)
[2022-02-14] MEDS: FOLIC ACID 1 MG TAB PO SCH (08:34)
[2022-02-14] MEDS: LITHIUM CARBONATE 150 MG CAP PO SCH ×2 (08:35→21:58)
[2022-02-14] MEDS: PANTOPRAZOLE 40MG TAB (PROTONIX) PO SCH (08:35)
[2022-02-14] MEDS: POTASSIUM CHLORIDE 10MEQ SR TABLET PO SCH ×2 (08:35→21:58)
[2022-02-14] MEDS: LITHIUM CARBONATE 300 MG CAP PO SCH ×2 (08:35→21:58)
[2022-02-14] MEDS: CETIRIZINE (ZyrTEC) 10 MG TAB PO SCH (08:35)
[2022-02-14] MEDS: methocarbamoL 500 MG TAB PO SCH ×2 (08:35→21:57)
[2022-02-14] MEDS: DULoxetine 30MG CAPSULE (CYMBALTA) PO SCH (08:35)
[2022-02-14] MEDS: atenoloL 50 MG TAB PO SCH (08:36)
[2022-02-14] MEDS: FLUTICASONE PROP 0.05% NASAL SPRAY 16 GM (FLONASE) NARES SCH (08:43)
[2022-02-14] MEDS: MELOXICAM (MOBIC) 7.5 MG TAB PO SCH (17:01)
[2022-02-14] MEDS: amLODIPine 5 MG TAB PO SCH (17:05)
[2022-02-14 18:00] VITALS: BP 114/55
[2022-02-14] MEDS: MOM 30ML SUSPENSION UDC PO PRN (19:32)
[2022-02-14] MEDS: LEVEMIR (INSULIN DETEMIR) 1 UNITS/0.01ML SC SCH (22:18)
[2022-02-14] MEDS: traZODone 50 MG TAB PO PRN (22:46)
[2022-02-15] MEDS: LORazepam 2 MG TAB PO PRN (03:17)
[2022-02-15] MEDS: LEVOTHYROXINE 88MCG TABLET (0.088 MG) PO SCH (06:24)
[2022-02-15] MEDS: INSULIN LISPRO (NovoLOG) PER UNIT SC SCH ×4 (06:41→19:55)
[2022-02-15 06:50] VITALS: BP 142/75
[2022-02-15] MEDS: FLUTICASONE PROP 0.05% NASAL SPRAY 16 GM (FLONASE) NARES SCH (09:48)
[2022-02-15] MEDS: SUCRALFATE 1 GM TAB PO SCH ×2 (09:49→20:00)
[2022-02-15] MEDS: methocarbamoL 500 MG TAB PO SCH ×2 (09:49→20:00)
[2022-02-15] MEDS: CETIRIZINE (ZyrTEC) 10 MG TAB PO SCH (09:49)
[2022-02-15] MEDS: LITHIUM CARBONATE 150 MG CAP PO SCH ×2 (09:50→20:00)
[2022-02-15] MEDS: DULoxetine 30MG CAPSULE (CYMBALTA) PO SCH (09:51)
[2022-02-15] MEDS: PANTOPRAZOLE 40MG TAB (PROTONIX) PO SCH (09:51)
[2022-02-15] MEDS: LITHIUM CARBONATE 300 MG CAP PO SCH ×2 (09:51→20:00)
[2022-02-15] MEDS: FOLIC ACID 1 MG TAB PO SCH (09:51)
[2022-02-15] MEDS: POTASSIUM CHLORIDE 10MEQ SR TABLET PO SCH ×2 (09:51→20:01)
[2022-02-15] MEDS: FERROUS SULFATE 325MG TAB PO SCH (09:51)
[2022-02-15] MEDS: FUROSEMIDE 20 MG TAB PO SCH (09:51)
[2022-02-15] MEDS: GABAPENTIN 100 MG CAP PO SCH ×3 (09:52→20:00)
[2022-02-15] MEDS: atenoloL 50 MG TAB PO SCH (09:55)
[2022-02-15] MEDS: MELOXICAM (MOBIC) 7.5 MG TAB PO SCH (17:52)
[2022-02-15] MEDS: amLODIPine 5 MG TAB PO SCH (17:56)
[2022-02-15 18:00] VITALS: BP 149/76
[2022-02-15] MEDS: LEVEMIR (INSULIN DETEMIR) 1 UNITS/0.01ML SC SCH (20:03)
[2022-02-16 06:31] VITALS: BP 131/89
[2022-02-16] MEDS: LEVOTHYROXINE 88MCG TABLET (0.088 MG) PO SCH (06:32)
[2022-02-16] MEDS: INSULIN LISPRO (NovoLOG) PER UNIT SC SCH ×4 (06:40→21:00)
[2022-02-16] MEDS: CETIRIZINE (ZyrTEC) 10 MG TAB PO SCH (08:40)
[2022-02-16] MEDS: methocarbamoL 500 MG TAB PO SCH ×2 (08:40→22:11)
[2022-02-16] MEDS: FERROUS SULFATE 325MG TAB PO SCH (08:40)
[2022-02-16] MEDS: PANTOPRAZOLE 40MG TAB (PROTONIX) PO SCH (08:40)
[2022-02-16] MEDS: SUCRALFATE 1 GM TAB PO SCH ×2 (08:40→22:12)
[2022-02-16] MEDS: LITHIUM CARBONATE 150 MG CAP PO SCH ×2 (08:40→22:12)
[2022-02-16] MEDS: POTASSIUM CHLORIDE 10MEQ SR TABLET PO SCH ×2 (08:41→22:12)
[2022-02-16] MEDS: GABAPENTIN 100 MG CAP PO SCH ×3 (08:41→22:12)
[2022-02-16] MEDS: LITHIUM CARBONATE 300 MG CAP PO SCH ×2 (08:41→22:12)
[2022-02-16] MEDS: DULoxetine 30MG CAPSULE (CYMBALTA) PO SCH (08:41)
[2022-02-16] MEDS: FOLIC ACID 1 MG TAB PO SCH (08:41)
[2022-02-16] MEDS: atenoloL 50 MG TAB PO SCH (08:42)
[2022-02-16] MEDS: FLUTICASONE PROP 0.05% NASAL SPRAY 16 GM (FLONASE) NARES SCH (08:43)
[2022-02-16] MEDS: LORazepam 2 MG TAB PO PRN (14:11)
[2022-02-16] MEDS: MELOXICAM (MOBIC) 7.5 MG TAB PO SCH (17:28)
[2022-02-16] MEDS: amLODIPine 5 MG TAB PO SCH (17:30)
[2022-02-16 18:24] VITALS: BP 104/58
[2022-02-16] MEDS: LEVEMIR (INSULIN DETEMIR) 1 UNITS/0.01ML SC SCH (22:19)
[2022-02-17] MEDS: LEVOTHYROXINE 88MCG TABLET (0.088 MG) PO SCH (06:24)
[2022-02-17] MEDS: INSULIN LISPRO (NovoLOG) PER UNIT SC SCH ×4 (06:31→21:00)
[2022-02-17 06:37] VITALS: BP 147/85
[2022-02-17] MEDS: atenoloL 50 MG TAB PO SCH (08:37)
[2022-02-17] MEDS: FLUTICASONE PROP 0.05% NASAL SPRAY 16 GM (FLONASE) NARES SCH (08:37)
[2022-02-17] MEDS: FUROSEMIDE 20 MG TAB PO SCH (08:38)
[2022-02-17] MEDS: SUCRALFATE 1 GM TAB PO SCH ×2 (08:38→22:10)
[2022-02-17] MEDS: FERROUS SULFATE 325MG TAB PO SCH (08:38)
[2022-02-17] MEDS: LITHIUM CARBONATE 150 MG CAP PO SCH ×2 (08:38→22:09)
[2022-02-17] MEDS: DULoxetine 30MG CAPSULE (CYMBALTA) PO SCH (08:38)
[2022-02-17] MEDS: POTASSIUM CHLORIDE 10MEQ SR TABLET PO SCH ×2 (08:39→22:09)
[2022-02-17] MEDS: FOLIC ACID 1 MG TAB PO SCH (08:39)
[2022-02-17] MEDS: CETIRIZINE (ZyrTEC) 10 MG TAB PO SCH (08:39)
[2022-02-17] MEDS: methocarbamoL 500 MG TAB PO SCH ×2 (08:39→22:10)
[2022-02-17] MEDS: LITHIUM CARBONATE 300 MG CAP PO SCH ×2 (08:39→22:10)
[2022-02-17] MEDS: PANTOPRAZOLE 40MG TAB (PROTONIX) PO SCH (08:39)
[2022-02-17] MEDS: GABAPENTIN 100 MG CAP PO SCH ×3 (08:39→22:08)
[2022-02-17] MEDS ORDERED: OMEPRAZOLE 20MG CAP PO SCH (09:00)
[2022-02-17] MEDS: MELOXICAM (MOBIC) 7.5 MG TAB PO SCH (17:23)
[2022-02-17] MEDS: amLODIPine 5 MG TAB PO SCH (17:25)
[2022-02-17 18:45] VITALS: BP 136/77
[2022-02-17] MEDS: LEVEMIR (INSULIN DETEMIR) 1 UNITS/0.01ML SC SCH (22:18)
[2022-02-18] MEDS: LEVOTHYROXINE 88MCG TABLET (0.088 MG) PO SCH (05:45)
[2022-02-18] MEDS: INSULIN LISPRO (NovoLOG) PER UNIT SC SCH ×4 (06:40→21:00)
[2022-02-18 06:42] VITALS: BP 150/72
[2022-02-18] MEDS: methocarbamoL 500 MG TAB PO SCH ×2 (08:38→22:21)
[2022-02-18] MEDS: FERROUS SULFATE 325MG TAB PO SCH (08:38)
[2022-02-18] MEDS: FLUTICASONE PROP 0.05% NASAL SPRAY 16 GM (FLONASE) NARES SCH (08:38)
[2022-02-18] MEDS: CETIRIZINE (ZyrTEC) 10 MG TAB PO SCH (08:38)
[2022-02-18] MEDS: SUCRALFATE 1 GM TAB PO SCH ×2 (08:38→22:21)
[2022-02-18] MEDS: LITHIUM CARBONATE 150 MG CAP PO SCH ×2 (08:39→22:21)
[2022-02-18] MEDS: PANTOPRAZOLE 40MG TAB (PROTONIX) PO SCH (08:40)
[2022-02-18] MEDS: GABAPENTIN 100 MG CAP PO SCH ×3 (08:40→22:22)
[2022-02-18] MEDS: FOLIC ACID 1 MG TAB PO SCH (08:40)
[2022-02-18] MEDS: DULoxetine 30MG CAPSULE (CYMBALTA) PO SCH (08:40)
[2022-02-18] MEDS: LITHIUM CARBONATE 300 MG CAP PO SCH ×2 (08:40→22:22)
[2022-02-18] MEDS: POTASSIUM CHLORIDE 10MEQ SR TABLET PO SCH ×2 (08:40→22:21)
[2022-02-18] MEDS: atenoloL 50 MG TAB PO SCH (08:41)
[2022-02-18] MEDS: MELOXICAM (MOBIC) 7.5 MG TAB PO SCH (17:19)
[2022-02-18] MEDS: amLODIPine 5 MG TAB PO SCH (17:20)
[2022-02-18 18:00] VITALS: BP 128/72
[2022-02-18] MEDS: LORazepam 2 MG TAB PO PRN (19:41)
[2022-02-18] MEDS: LEVEMIR (INSULIN DETEMIR) 1 UNITS/0.01ML SC SCH (22:20)
[2022-02-19] MEDS: LEVOTHYROXINE 88MCG TABLET (0.088 MG) PO SCH (05:24)
[2022-02-19] MEDS: INSULIN LISPRO (NovoLOG) PER UNIT SC SCH ×4 (06:43→20:26)
[2022-02-19 07:08] VITALS: BP 137/58
[2022-02-19] MEDS: SUCRALFATE 1 GM TAB PO SCH ×2 (11:44→20:23)
[2022-02-19] MEDS: DULoxetine 30MG CAPSULE (CYMBALTA) PO SCH (11:44)
[2022-02-19] MEDS: FERROUS SULFATE 325MG TAB PO SCH (11:45)
[2022-02-19] MEDS: FUROSEMIDE 20 MG TAB PO SCH (11:46)
[2022-02-19] MEDS: FOLIC ACID 1 MG TAB PO SCH (11:46)
[2022-02-19] MEDS: LITHIUM CARBONATE 300 MG CAP PO SCH ×2 (11:47→20:23)
[2022-02-19] MEDS: LITHIUM CARBONATE 150 MG CAP PO SCH ×2 (11:47→20:23)
[2022-02-19] MEDS: POTASSIUM CHLORIDE 10MEQ SR TABLET PO SCH ×2 (11:48→20:23)
[2022-02-19] MEDS: PANTOPRAZOLE 40MG TAB (PROTONIX) PO SCH (11:49)
[2022-02-19] MEDS: GABAPENTIN 100 MG CAP PO SCH ×3 (11:49→20:22)
[2022-02-19] MEDS: methocarbamoL 500 MG TAB PO SCH ×2 (11:50→20:23)
[2022-02-19] MEDS: FLUTICASONE PROP 0.05% NASAL SPRAY 16 GM (FLONASE) NARES SCH (11:52)
[2022-02-19] MEDS: atenoloL 50 MG TAB PO SCH (11:53)
[2022-02-19] MEDS: CETIRIZINE (ZyrTEC) 10 MG TAB PO SCH (11:53)
[2022-02-19] MEDS: MELOXICAM (MOBIC) 7.5 MG TAB PO SCH (17:22)
[2022-02-19] MEDS: amLODIPine 5 MG TAB PO SCH (17:22)
[2022-02-19 18:00] VITALS: BP 132/69
[2022-02-19] MEDS: LEVEMIR (INSULIN DETEMIR) 1 UNITS/0.01ML SC SCH (20:22)
[2022-02-19] MEDS: LORazepam 2 MG TAB PO PRN (20:25)
[2022-02-20] MEDS: LEVOTHYROXINE 88MCG TABLET (0.088 MG) PO SCH (06:17)
[2022-02-20] MEDS: INSULIN LISPRO (NovoLOG) PER UNIT SC SCH ×4 (06:45→21:00)
[2022-02-20 07:05] VITALS: BP 139/81
[2022-02-20] MEDS: atenoloL 50 MG TAB PO SCH (09:32)
[2022-02-20] MEDS: SUCRALFATE 1 GM TAB PO SCH ×2 (09:32→21:45)
[2022-02-20] MEDS: FERROUS SULFATE 325MG TAB PO SCH (09:32)
[2022-02-20] MEDS: methocarbamoL 500 MG TAB PO SCH ×2 (09:32→21:45)
[2022-02-20] MEDS: LITHIUM CARBONATE 300 MG CAP PO SCH ×2 (09:32→21:46)
[2022-02-20] MEDS: FOLIC ACID 1 MG TAB PO SCH (09:33)
[2022-02-20] MEDS: DULoxetine 30MG CAPSULE (CYMBALTA) PO SCH (09:33)
[2022-02-20] MEDS: GABAPENTIN 100 MG CAP PO SCH ×3 (09:33→21:46)
[2022-02-20] MEDS: PANTOPRAZOLE 40MG TAB (PROTONIX) PO SCH (09:33)
[2022-02-20] MEDS: LITHIUM CARBONATE 150 MG CAP PO SCH ×2 (09:33→21:45)
[2022-02-20] MEDS: POTASSIUM CHLORIDE 10MEQ SR TABLET PO SCH ×2 (09:34→21:46)
[2022-02-20] MEDS: CETIRIZINE (ZyrTEC) 10 MG TAB PO SCH (09:34)
[2022-02-20] MEDS: FLUTICASONE PROP 0.05% NASAL SPRAY 16 GM (FLONASE) NARES SCH (09:35)
[2022-02-20 16:19] VITALS: BP 107/60
[2022-02-20] MEDS: MELOXICAM (MOBIC) 7.5 MG TAB PO SCH (17:05)
[2022-02-20] MEDS: amLODIPine 5 MG TAB PO SCH (17:06)
[2022-02-20] MEDS: LEVEMIR (INSULIN DETEMIR) 1 UNITS/0.01ML SC SCH (21:48)
[2022-02-21] MEDS: LEVOTHYROXINE 88MCG TABLET (0.088 MG) PO SCH (06:15)
[2022-02-21 06:17] VITALS: BP 152/79
[2022-02-21] MEDS: INSULIN LISPRO (NovoLOG) PER UNIT SC SCH ×4 (06:33→21:00)
[2022-02-21] MEDS: atenoloL 50 MG TAB PO SCH (08:14)
[2022-02-21] MEDS: methocarbamoL 500 MG TAB PO SCH ×2 (08:14→21:34)
[2022-02-21] MEDS: GABAPENTIN 100 MG CAP PO SCH ×3 (08:14→21:34)
[2022-02-21] MEDS: FLUTICASONE PROP 0.05% NASAL SPRAY 16 GM (FLONASE) NARES SCH (08:14)
[2022-02-21] MEDS: DULoxetine 30MG CAPSULE (CYMBALTA) PO SCH (08:15)
[2022-02-21] MEDS: FERROUS SULFATE 325MG TAB PO SCH (08:15)
[2022-02-21] MEDS: PANTOPRAZOLE 40MG TAB (PROTONIX) PO SCH (08:15)
[2022-02-21] MEDS: FOLIC ACID 1 MG TAB PO SCH (08:15)
[2022-02-21] MEDS: LITHIUM CARBONATE 300 MG CAP PO SCH ×2 (08:15→21:34)
[2022-02-21] MEDS: CETIRIZINE (ZyrTEC) 10 MG TAB PO SCH (08:15)
[2022-02-21] MEDS: LITHIUM CARBONATE 150 MG CAP PO SCH ×2 (08:15→21:34)
[2022-02-21] MEDS: POTASSIUM CHLORIDE 10MEQ SR TABLET PO SCH ×2 (08:15→21:34)
[2022-02-21] MEDS: FUROSEMIDE 20 MG TAB PO SCH (08:15)
[2022-02-21] MEDS: SUCRALFATE 1 GM TAB PO SCH ×2 (08:16→21:34)
[2022-02-21 16:50] VITALS: BP 106/61
[2022-02-21] MEDS: MELOXICAM (MOBIC) 7.5 MG TAB PO SCH (17:15)
[2022-02-21] MEDS: amLODIPine 5 MG TAB PO SCH (18:47)
[2022-02-21] MEDS: LEVEMIR (INSULIN DETEMIR) 1 UNITS/0.01ML SC SCH (21:33)
[2022-02-22] MEDS: LEVOTHYROXINE 88MCG TABLET (0.088 MG) PO SCH (06:15)
[2022-02-22 06:29] VITALS: BP 136/61
[2022-02-22] MEDS: INSULIN LISPRO (NovoLOG) PER UNIT SC SCH ×4 (06:33→21:00)
[2022-02-22] MEDS: POTASSIUM CHLORIDE 10MEQ SR TABLET PO SCH ×2 (08:28→21:11)
[2022-02-22] MEDS: DULoxetine 30MG CAPSULE (CYMBALTA) PO SCH (08:28)
[2022-02-22] MEDS: LITHIUM CARBONATE 300 MG CAP PO SCH ×2 (08:28→21:10)
[2022-02-22] MEDS: FERROUS SULFATE 325MG TAB PO SCH (08:28)
[2022-02-22] MEDS: FLUTICASONE PROP 0.05% NASAL SPRAY 16 GM (FLONASE) NARES SCH (08:28)
[2022-02-22] MEDS: CETIRIZINE (ZyrTEC) 10 MG TAB PO SCH (08:34)
[2022-02-22] MEDS: FOLIC ACID 1 MG TAB PO SCH (08:34)
[2022-02-22] MEDS: LITHIUM CARBONATE 150 MG CAP PO SCH ×2 (08:34→21:10)
[2022-02-22] MEDS: SUCRALFATE 1 GM TAB PO SCH ×2 (08:34→21:10)
[2022-02-22] MEDS: methocarbamoL 500 MG TAB PO SCH ×2 (08:34→21:10)
[2022-02-22] MEDS: atenoloL 50 MG TAB PO SCH (08:34)
[2022-02-22] MEDS: PANTOPRAZOLE 40MG TAB (PROTONIX) PO SCH (08:35)
[2022-02-22] MEDS: GABAPENTIN 100 MG CAP PO SCH ×3 (08:35→21:10)
[2022-02-22] MEDS: LORazepam 2 MG TAB PO PRN ×2 (10:06→21:34)
[2022-02-22 16:48] VITALS: BP 133/66
[2022-02-22] MEDS: amLODIPine 5 MG TAB PO SCH (17:17)
[2022-02-22] MEDS: MELOXICAM (MOBIC) 7.5 MG TAB PO SCH (17:17)
[2022-02-22] MEDS: LEVEMIR (INSULIN DETEMIR) 1 UNITS/0.01ML SC SCH (21:11)
[2022-02-22] MEDS: traZODone 50 MG TAB PO PRN (21:35)
[2022-02-23] MEDS: INSULIN LISPRO (NovoLOG) PER UNIT SC SCH ×4 (06:55→21:00)
[2022-02-23] MEDS: LEVOTHYROXINE 88MCG TABLET (0.088 MG) PO SCH (06:55)
[2022-02-23 07:02] VITALS: BP 137/69
[2022-02-23] MEDS: methocarbamoL 500 MG TAB PO SCH ×2 (08:53→22:00)
[2022-02-23] MEDS: FLUTICASONE PROP 0.05% NASAL SPRAY 16 GM (FLONASE) NARES SCH (08:53)
[2022-02-23] MEDS: FERROUS SULFATE 325MG TAB PO SCH (08:53)
[2022-02-23] MEDS: FUROSEMIDE 20 MG TAB PO SCH (08:54)
[2022-02-23] MEDS: DULoxetine 30MG CAPSULE (CYMBALTA) PO SCH (08:54)
[2022-02-23] MEDS: LITHIUM CARBONATE 150 MG CAP PO SCH ×2 (08:54→22:00)
[2022-02-23] MEDS: CETIRIZINE (ZyrTEC) 10 MG TAB PO SCH (08:54)
[2022-02-23] MEDS: PANTOPRAZOLE 40MG TAB (PROTONIX) PO SCH (08:54)
[2022-02-23] MEDS: LITHIUM CARBONATE 300 MG CAP PO SCH ×2 (08:54→22:00)
[2022-02-23] MEDS: SUCRALFATE 1 GM TAB PO SCH ×2 (08:55→22:00)
[2022-02-23] MEDS: POTASSIUM CHLORIDE 10MEQ SR TABLET PO SCH ×2 (08:55→22:00)
[2022-02-23] MEDS: GABAPENTIN 100 MG CAP PO SCH ×3 (08:55→22:00)
[2022-02-23] MEDS: FOLIC ACID 1 MG TAB PO SCH (08:55)
[2022-02-23] MEDS: LORazepam 2 MG TAB PO PRN (08:56)
[2022-02-23] MEDS: atenoloL 50 MG TAB PO SCH (09:01)
[2022-02-23] MEDS: MELOXICAM (MOBIC) 7.5 MG TAB PO SCH (17:03)
[2022-02-23] MEDS: amLODIPine 5 MG TAB PO SCH (17:03)
[2022-02-23 17:42] VITALS: BP 118/69
[2022-02-23] MEDS: LEVEMIR (INSULIN DETEMIR) 1 UNITS/0.01ML SC SCH (22:06)
[2022-02-24] MEDS: LEVOTHYROXINE 88MCG TABLET (0.088 MG) PO SCH (05:23)
[2022-02-24] MEDS: INSULIN LISPRO (NovoLOG) PER UNIT SC SCH ×4 (06:42→21:00)
[2022-02-24 06:59] VITALS: BP 110/72
[2022-02-24] MEDS: DULoxetine 30MG CAPSULE (CYMBALTA) PO SCH (07:53)
[2022-02-24] MEDS: methocarbamoL 500 MG TAB PO SCH ×2 (07:53→21:25)
[2022-02-24] MEDS: FLUTICASONE PROP 0.05% NASAL SPRAY 16 GM (FLONASE) NARES SCH (07:53)
[2022-02-24] MEDS: PANTOPRAZOLE 40MG TAB (PROTONIX) PO SCH (07:53)
[2022-02-24] MEDS: LITHIUM CARBONATE 300 MG CAP PO SCH ×2 (07:54→21:25)
[2022-02-24] MEDS: FOLIC ACID 1 MG TAB PO SCH (07:54)
[2022-02-24] MEDS: LITHIUM CARBONATE 150 MG CAP PO SCH ×2 (07:54→21:26)
[2022-02-24] MEDS: FERROUS SULFATE 325MG TAB PO SCH (07:54)
[2022-02-24] MEDS: BENZTROPINE 1 MG TAB PO PRN (07:54)
[2022-02-24] MEDS: POTASSIUM CHLORIDE 10MEQ SR TABLET PO SCH ×2 (07:54→21:26)
[2022-02-24] MEDS: SUCRALFATE 1 GM TAB PO SCH ×2 (07:54→21:26)
[2022-02-24] MEDS: CETIRIZINE (ZyrTEC) 10 MG TAB PO SCH (07:54)
[2022-02-24] MEDS: atenoloL 50 MG TAB PO SCH (07:55)
[2022-02-24] MEDS: GABAPENTIN 100 MG CAP PO SCH ×3 (07:55→21:26)
[2022-02-24 16:43] VITALS: BP 119/65
[2022-02-24] MEDS: amLODIPine 5 MG TAB PO SCH (17:18)
[2022-02-24] MEDS: MELOXICAM (MOBIC) 7.5 MG TAB PO SCH (17:18)
[2022-02-24] MEDS: LORazepam 2 MG TAB PO PRN (18:10)
[2022-02-24] MEDS: LEVEMIR (INSULIN DETEMIR) 1 UNITS/0.01ML SC SCH (21:25)
[2022-02-24] MEDS: traZODone 50 MG TAB PO PRN (22:12)
[2022-02-25] MEDS: LEVOTHYROXINE 88MCG TABLET (0.088 MG) PO SCH (06:28)
[2022-02-25] MEDS: INSULIN LISPRO (NovoLOG) PER UNIT SC SCH ×4 (06:30→20:02)
[2022-02-25 06:51] VITALS: BP 135/79
[2022-02-25] MEDS: FLUTICASONE PROP 0.05% NASAL SPRAY 16 GM (FLONASE) NARES SCH (07:50)
[2022-02-25] MEDS: FOLIC ACID 1 MG TAB PO SCH (07:51)
[2022-02-25] MEDS: CETIRIZINE (ZyrTEC) 10 MG TAB PO SCH (07:51)
[2022-02-25] MEDS: PANTOPRAZOLE 40MG TAB (PROTONIX) PO SCH (07:51)
[2022-02-25] MEDS: SUCRALFATE 1 GM TAB PO SCH ×2 (07:51→19:59)
[2022-02-25] MEDS: atenoloL 50 MG TAB PO SCH (07:51)
[2022-02-25] MEDS: GABAPENTIN 100 MG CAP PO SCH ×3 (07:51→19:58)
[2022-02-25] MEDS: methocarbamoL 500 MG TAB PO SCH ×2 (07:51→19:59)
[2022-02-25] MEDS: POTASSIUM CHLORIDE 10MEQ SR TABLET PO SCH ×2 (07:51→19:58)
[2022-02-25] MEDS: LITHIUM CARBONATE 150 MG CAP PO SCH ×2 (07:51→19:59)
[2022-02-25] MEDS: BENZTROPINE 1 MG TAB PO PRN (07:51)
[2022-02-25] MEDS: DULoxetine 30MG CAPSULE (CYMBALTA) PO SCH (07:52)
[2022-02-25] MEDS: FERROUS SULFATE 325MG TAB PO SCH (07:52)
[2022-02-25] MEDS: FUROSEMIDE 20 MG TAB PO SCH (07:52)
[2022-02-25] MEDS: LITHIUM CARBONATE 300 MG CAP PO SCH ×2 (07:53→19:59)
[2022-02-25 16:36] VITALS: BP 116/65
[2022-02-25] MEDS: MELOXICAM (MOBIC) 7.5 MG TAB PO SCH (17:17)
[2022-02-25] MEDS: amLODIPine 5 MG TAB PO SCH (17:17)
[2022-02-25] MEDS: LEVEMIR (INSULIN DETEMIR) 1 UNITS/0.01ML SC SCH (19:58)
[2022-02-25] MEDS: traZODone 50 MG TAB PO PRN (19:59)
[2022-02-25] MEDS: LORazepam 2 MG TAB PO PRN (22:08)
[2022-02-26] MEDS: LEVOTHYROXINE 88MCG TABLET (0.088 MG) PO SCH (05:36)
[2022-02-26] MEDS: INSULIN LISPRO (NovoLOG) PER UNIT SC SCH ×4 (06:48→20:23)
[2022-02-26 07:06] VITALS: BP 133/69
[2022-02-26] MEDS: FLUTICASONE PROP 0.05% NASAL SPRAY 16 GM (FLONASE) NARES SCH (09:24)
[2022-02-26] MEDS: LITHIUM CARBONATE 150 MG CAP PO SCH ×2 (09:24→20:24)
[2022-02-26] MEDS: POTASSIUM CHLORIDE 10MEQ SR TABLET PO SCH ×2 (09:25→20:24)
[2022-02-26] MEDS: methocarbamoL 500 MG TAB PO SCH ×2 (09:25→20:23)
[2022-02-26] MEDS: PANTOPRAZOLE 40MG TAB (PROTONIX) PO SCH (09:25)
[2022-02-26] MEDS: atenoloL 50 MG TAB PO SCH (09:25)
[2022-02-26] MEDS: DULoxetine 30MG CAPSULE (CYMBALTA) PO SCH (09:25)
[2022-02-26] MEDS: LITHIUM CARBONATE 300 MG CAP PO SCH ×2 (09:25→20:24)
[2022-02-26] MEDS: FERROUS SULFATE 325MG TAB PO SCH (09:25)
[2022-02-26] MEDS: SUCRALFATE 1 GM TAB PO SCH ×2 (09:25→20:24)
[2022-02-26] MEDS: CETIRIZINE (ZyrTEC) 10 MG TAB PO SCH (09:25)
[2022-02-26] MEDS: FOLIC ACID 1 MG TAB PO SCH (09:26)
[2022-02-26] MEDS: GABAPENTIN 100 MG CAP PO SCH ×3 (09:26→20:24)
[2022-02-26 16:34] VITALS: BP 125/68
[2022-02-26] MEDS: MELOXICAM (MOBIC) 7.5 MG TAB PO SCH (17:07)
[2022-02-26] MEDS: amLODIPine 5 MG TAB PO SCH (17:08)
[2022-02-26] MEDS: LEVEMIR (INSULIN DETEMIR) 1 UNITS/0.01ML SC SCH (20:22)
[2022-02-26] MEDS: LORazepam 2 MG TAB PO PRN (20:23)
[2022-02-26] MEDS: traZODone 50 MG TAB PO PRN (20:23)
[2022-02-27] MEDS: LEVOTHYROXINE 88MCG TABLET (0.088 MG) PO SCH (06:30)
[2022-02-27] MEDS: INSULIN LISPRO (NovoLOG) PER UNIT SC SCH ×4 (06:31→21:00)
[2022-02-27 06:36] VITALS: BP 121/60
[2022-02-27 06:37] VITALS: BP 103/57
[2022-02-27] MEDS: FLUTICASONE PROP 0.05% NASAL SPRAY 16 GM (FLONASE) NARES SCH (08:11)
[2022-02-27] MEDS: atenoloL 50 MG TAB PO SCH (08:12)
[2022-02-27] MEDS: CETIRIZINE (ZyrTEC) 10 MG TAB PO SCH (08:12)
[2022-02-27] MEDS: methocarbamoL 500 MG TAB PO SCH ×2 (08:12→21:10)
[2022-02-27] MEDS: SUCRALFATE 1 GM TAB PO SCH ×2 (08:12→21:11)
[2022-02-27] MEDS: FUROSEMIDE 20 MG TAB PO SCH (08:13)
[2022-02-27] MEDS: FOLIC ACID 1 MG TAB PO SCH (08:13)
[2022-02-27] MEDS: FERROUS SULFATE 325MG TAB PO SCH (08:13)
[2022-02-27] MEDS: DULoxetine 30MG CAPSULE (CYMBALTA) PO SCH (08:13)
[2022-02-27] MEDS: LITHIUM CARBONATE 150 MG CAP PO SCH ×2 (08:13→21:11)
[2022-02-27] MEDS: LITHIUM CARBONATE 300 MG CAP PO SCH ×2 (08:14→21:11)
[2022-02-27] MEDS: GABAPENTIN 100 MG CAP PO SCH ×3 (08:14→21:10)
[2022-02-27] MEDS: PANTOPRAZOLE 40MG TAB (PROTONIX) PO SCH (08:14)
[2022-02-27] MEDS: POTASSIUM CHLORIDE 10MEQ SR TABLET PO SCH ×2 (08:14→21:11)
[2022-02-27] MEDS ORDERED: PALIPERIDONE PALMITATE 234MG/1.5ML INJ (INVEGA)(FREE PSY INPT ONLY) IM ONE (15:00)
[2022-02-27] MEDS: MELOXICAM (MOBIC) 7.5 MG TAB PO SCH (17:14)
[2022-02-27 18:00] VITALS: BP 145/81
[2022-02-27] MEDS: amLODIPine 5 MG TAB PO SCH (18:14)
[2022-02-27] MEDS: LEVEMIR (INSULIN DETEMIR) 1 UNITS/0.01ML SC SCH (21:18)
[2022-02-27] MEDS: traZODone 50 MG TAB PO PRN (23:43)
[2022-02-28] MEDS: LEVOTHYROXINE 88MCG TABLET (0.088 MG) PO SCH (05:11)
[2022-02-28] MEDS: INSULIN LISPRO (NovoLOG) PER UNIT SC SCH ×2 (06:32→12:14)
[2022-02-28 07:05] VITALS: BP 143/68
[2022-02-28] MEDS: GABAPENTIN 100 MG CAP PO SCH (08:22)
[2022-02-28] MEDS: SUCRALFATE 1 GM TAB PO SCH (08:22)
[2022-02-28] MEDS: POTASSIUM CHLORIDE 10MEQ SR TABLET PO SCH (08:22)
[2022-02-28] MEDS: FERROUS SULFATE 325MG TAB PO SCH (08:22)
[2022-02-28] MEDS: LITHIUM CARBONATE 300 MG CAP PO SCH (08:22)
[2022-02-28] MEDS: FOLIC ACID 1 MG TAB PO SCH (08:22)
[2022-02-28] MEDS: methocarbamoL 500 MG TAB PO SCH (08:22)
[2022-02-28] MEDS: PANTOPRAZOLE 40MG TAB (PROTONIX) PO SCH (08:22)
[2022-02-28] MEDS: DULoxetine 30MG CAPSULE (CYMBALTA) PO SCH (08:22)
[2022-02-28 08:23] VITALS: BP 143/68
[2022-02-28] MEDS: LITHIUM CARBONATE 150 MG CAP PO SCH (08:23)
[2022-02-28] MEDS: atenoloL 50 MG TAB PO SCH (08:23)
[2022-02-28] MEDS: CETIRIZINE (ZyrTEC) 10 MG TAB PO SCH (08:23)
[2022-02-28] MEDS: FLUTICASONE PROP 0.05% NASAL SPRAY 16 GM (FLONASE) NARES SCH (08:23)
[2022-02-28] MEDS ORDERED: BASA100I SQ (11:14)
[2022-02-28] MEDS ORDERED: SUCR1TA PO ×2 (11:14→11:49)
[2022-02-28] MEDS ORDERED: MELO15TA28 PO (11:14)
[2022-02-28] MEDS ORDERED: INSUH10VL SQ (11:14)
[2022-02-28] MEDS ORDERED: BENZ-52 PO (11:14)
[2022-02-28] MEDS ORDERED: POLYOPD OU (11:14)
[2022-02-28] MEDS ORDERED: FERR325T3 PO (11:14)
[2022-02-28] MEDS ORDERED: METH-1164 PO (11:14)
[2022-02-28] MEDS ORDERED: CETI-24 PO (11:14)
[2022-02-28] MEDS ORDERED: OMEP1CAP73 PO (11:14)
[2022-02-28] MEDS ORDERED: INVE234I IM (11:14)
[2022-02-28] MEDS ORDERED: ARIP1TAB10 PO (11:14)
[2022-02-28] MEDS ORDERED: FURO20TA2 PO (11:14)
[2022-02-28] MEDS ORDERED: LORA2TA PO (11:14)
[2022-02-28] MEDS ORDERED: LITH300C PO (11:14)
[2022-02-28] MEDS ORDERED: HALO5TAB33 PO (11:14)
[2022-02-28] MEDS ORDERED: DULO1CAP6 PO (11:14)
[2022-02-28] MEDS ORDERED: AMLO1TAB24 PO (11:14)
[2022-02-28] MEDS ORDERED: LEVO88TA3 PO (11:14)
[2022-02-28] MEDS ORDERED: VENTAER INH (11:14)
[2022-02-28] MEDS ORDERED: MECL-86 PO (11:14)
[2022-02-28] MEDS ORDERED: LITH150C PO (11:14)
[2022-02-28] MEDS ORDERED: FOLI1TAB11 PO (11:14)
[2022-02-28] MEDS ORDERED: GABA-1171 PO (11:14)
[2022-02-28] MEDS ORDERED: POTA-136 PO (11:14)
[2022-02-28] MEDS ORDERED: D 101000 PO (11:14)
[2022-02-28] MEDS ORDERED: ATEN50TA2 PO (11:14)
[2022-02-28] MEDS ORDERED: FLUT15.820 (11:14)
[2022-02-28] MEDS ORDERED: ATEN100T PO (11:21)
[2022-02-28] MEDS: LORazepam 2 MG TAB PO PRN (11:38)
[2022-02-28] MEDS ORDERED: K-TA10TA2 PO (11:49)
[2022-03-01] MEDS ORDERED: PALIPERIDONE PALMITATE 234MG/1.5ML INJ (INVEGA)(FREE PSY INPT ONLY) IM ONE (09:00)
== END 2022-02-28 13:26 | disposition home or self-care (01) | DRG 753 ==
LOC: M ED 05:49 → M ED INP 16:45 → M PSY 23:47
PROVIDERS: ADMIT Student in an Organized Health Care Education/Training Program; ATTEND Psychiatry & Neurology Psychiatry
DX: F31.64 Bipolar disorder, current episode mixed, severe, with psychotic features (principal); E11.40 Type 2 diabetes mellitus with diabetic neuropathy, unspecified; F79 Unspecified intellectual disabilities; E66.01 Morbid (severe) obesity due to excess calories; K86.1 Other chronic pancreatitis; R45.851 Suicidal ideations; K76.0 Fatty (change of) liver, not elsewhere classified; F60.3 Borderline personality disorder; Z79.899 Other long term (current) drug therapy; Z88.2 Allergy status to sulfonamides; Z88.8 Allergy status to other drugs, medicaments and biological substances; F41.1 Generalized anxiety disorder; Z79.4 Long term (current) use of insulin; I10 Essential (primary) hypertension; E03.9 Hypothyroidism, unspecified; K21.9 Gastro-esophageal reflux disease without esophagitis; Z98.41 Cataract extraction status, right eye; E78.5 Hyperlipidemia, unspecified; E55.9 Vitamin D deficiency, unspecified

== ENCOUNTER → 2022-03-08 | Outpatient (REF) | payer OTHER ==
[~2022-03-08] MED LIST changes: +ARIP1TAB10 PO; +ARIP1TAB6 PO; +ATEN50TA2 PO; +BASA100I SQ; +D 101000 PO; +FLUT15.820; +HALO5TAB33 PO; +INSUH10VL SQ; +K-TA10TA2 PO; +LITH150C PO; +LORA2TA PO; +OMEP1CAP73 PO; +POTA-136 PO; +POTA10CA32 PO
[2022-03-08 17:42] LABS: ALBUMIN 3.6 GM/DL (3.2-5.2); ALT/SGPT 57 U/L (12-78); BILIRUBIN,TOTAL 0.7 MG/DL (0.2-1.0); BLOOD UREA NITROGEN 14 MG/DL (7-18); CALCIUM LEVEL 9.9 MG/DL (8.5-10.1); CARBON DIOXIDE LEVEL 29 MEQ/L (21-32); CHLORIDE LEVEL 106 MEQ/L (98-107); CHOLESTEROL LEVEL 180 MG/DL (<200); CHOLESTEROL RISK RATIO 3.829 (<5); CREATININE FOR GFR 0.74 MG/DL (0.55-1.30); GLOMERULAR FILTRATION RATE > 60.0 (>58); GLUCOSE, FASTING 183 MG/DL (70-100); HDL CHOLESTEROL 47 MG/DL (>40); LDL CHOLESTEROL 116 MG/DL (<100); LITHIUM LEVEL 0.45 MEQ/L (0.60-1.20); NON-HDL-C 133 MG/DL; POTASSIUM SERUM 4.3 MEQ/L (3.5-5.1); SODIUM LEVEL 141 MEQ/L (136-145); TOTAL PROTEIN 6.7 GM/DL (6.4-8.2); TRIGLYCERIDES LEVEL 83 MG/DL (<150)
[2022-03-08 17:43] LABS: HEMATOCRIT 39.7 % (36.0-47.0); MEAN CORPUSCULAR HEMOGLOBIN 29.1 pg (27.0-33.0); MEAN CORPUSCULAR HGB CONC 32.7 g/dl (32.0-36.5); PLATELET COUNT, AUTOMATED 350 10^3/uL (150-450); RED BLOOD COUNT 4.46 10^6/uL (4.00-5.40); WHITE BLOOD COUNT 10.2 10^3/uL (4.0-10.0)
[2022-03-08 18:10] LABS: HEMOGLOBIN A1c 7.9 %
== END ==
LOC: M SFHCCLAY 14:22
PROVIDERS: ATTEND Nurse Practitioner Family
DX: E11.65 Type 2 diabetes mellitus with hyperglycemia (principal); I10 Essential (primary) hypertension; F31.9 Bipolar disorder, unspecified

== ENCOUNTER → 2022-05-24 | Outpatient (REF) | payer OTHER ==
[2022-05-24 17:45] LABS: HEMATOCRIT 40.5 % (36.0-47.0); HEMOGLOBIN 12.8 g/dl (12.0-15.5); MEAN CORPUSCULAR HGB CONC 31.6 g/dl (32.0-36.5); MEAN CORPUSCULAR VOLUME 91.6 fl (80.0-96.0); PLATELET COUNT, AUTOMATED 273 10^3/uL (150-450); RED BLOOD COUNT 4.42 10^6/uL (4.00-5.40); WHITE BLOOD COUNT 10.2 10^3/uL (4.0-10.0)
[2022-05-24 18:28] LABS: ALBUMIN 3.5 GM/DL (3.2-5.2); ALT/SGPT 21 U/L (12-78); BILIRUBIN,TOTAL 0.5 MG/DL (0.2-1.0); BLOOD UREA NITROGEN 10 MG/DL (7-18); CALCIUM LEVEL 9.1 MG/DL (8.5-10.1); CARBON DIOXIDE LEVEL 32 MEQ/L (21-32); CHLORIDE LEVEL 106 MEQ/L (98-107); CREATININE FOR GFR 0.67 MG/DL (0.55-1.30); GLOMERULAR FILTRATION RATE > 60.0 (>58); GLUCOSE, FASTING 220 MG/DL (70-100); SODIUM LEVEL 139 MEQ/L (136-145); TOTAL PROTEIN 6.5 GM/DL (6.4-8.2)
[2022-05-24 19:06] LABS: HEMOGLOBIN A1c 8.2 %
== END ==
LOC: M SFHCCLAY 14:29
PROVIDERS: ATTEND Nurse Practitioner Family
DX: E11.65 Type 2 diabetes mellitus with hyperglycemia (principal)

== ENCOUNTER 2022-06-18 23:34 | Inpatient (IN) | payer OTHER, MEDICAID ==
[~2022-06-18] VITALS: Ht 170.2 cm; Wt 125.0 kg
[2022-06-19 01:26] LABS: HEMATOCRIT 40.7 % (36.0-47.0); MEAN CORPUSCULAR HEMOGLOBIN 28.4 pg (27.0-33.0); MEAN CORPUSCULAR HGB CONC 31.9 g/dl (32.0-36.5); MEAN CORPUSCULAR VOLUME 89.1 fl (80.0-96.0); PLATELET COUNT, AUTOMATED 293 10^3/uL (150-450); RED BLOOD COUNT 4.57 10^6/uL (4.00-5.40); WHITE BLOOD COUNT 10.3 10^3/uL (4.0-10.0)
[2022-06-19 01:57] LABS: HCG, SERUM QUALITATIVE NEGATIVE (NEGATIVE)
[2022-06-19 02:05] LABS: RSV AMPLIFICATION NEGATIVE (NEGATIVE)
[2022-06-19 02:13] LABS: ACETAMINOPHEN LEVEL < 2.0 UG/ML (10.0-30.0); ALBUMIN 3.4 GM/DL (3.2-5.2); ALT/SGPT 19 U/L (12-78); BILIRUBIN,DIRECT 0.2 MG/DL (0.0-0.2); BILIRUBIN,TOTAL 0.4 MG/DL (0.2-1.0); BLOOD UREA NITROGEN 11 MG/DL (7-18); CALCIUM LEVEL 9.1 MG/DL (8.5-10.1); CARBON DIOXIDE LEVEL 27 MEQ/L (21-32); CHLORIDE LEVEL 107 MEQ/L (98-107); CREATININE FOR GFR 0.82 MG/DL (0.55-1.30); ETHYL ALCOHOL (ETHANOL) < 0.003 % (0.000-0.010); GLOMERULAR FILTRATION RATE > 60.0 (>58); GLUCOSE, FASTING 242 MG/DL (70-100); POTASSIUM SERUM 3.8 MEQ/L (3.5-5.1); SALICYLATE LEVEL < 1.7 MG/DL (5.0-30.0); SODIUM LEVEL 139 MEQ/L (136-145); TOTAL PROTEIN 6.4 GM/DL (6.4-8.2)
[2022-06-19] MEDS ORDERED: AMLO1TAB24 PO (03:43)
[2022-06-19] MEDS ORDERED: LITH45TASA PO (03:54)
[2022-06-19] MEDS ORDERED: BASA100I SC (03:54)
[2022-06-19] MEDS ORDERED: METH-1164 PO (03:54)
[2022-06-19] MEDS ORDERED: OMEP-173 PO (03:54)
[2022-06-19] MEDS ORDERED: ATEN50TA2 PO (03:54)
[2022-06-19] MEDS ORDERED: POTA1TAB23 PO (03:54)
[2022-06-19] MEDS ORDERED: LEVO88TA3 PO (03:54)
[2022-06-19] MEDS ORDERED: MECL-86 PO (03:54)
[2022-06-19] MEDS ORDERED: CETI-24 PO (03:54)
[2022-06-19] MEDS ORDERED: FOLI1TAB11 PO (03:54)
[2022-06-19] MEDS ORDERED: SUCR1TAB56 PO (03:54)
[2022-06-19] MEDS ORDERED: FURO20TA2 PO (03:54)
[2022-06-19] MEDS ORDERED: FERR1TAB8 PO (03:54)
[2022-06-19] MEDS ORDERED: ATOR40TA75 PO (03:54)
[2022-06-19] MEDS ORDERED: MELO15TA28 PO (03:54)
[2022-06-19] MEDS ORDERED: GABA-1171 PO (03:54)
[2022-06-19] MEDS ORDERED: BENZ-52 PO (03:54)
[2022-06-19] MEDS ORDERED: INVE234I IM (03:54)
[2022-06-19] MEDS ORDERED: CITA40TA7 PO (03:58)
[2022-06-19] MEDS ORDERED: VITA200016 PO (03:58)
[2022-06-19] MEDS ORDERED: ARIP1TAB10 PO (03:58)
[2022-06-19] MEDS ORDERED: DULO60CA35 PO (04:01)
[2022-06-19] MEDS ORDERED: HOME MED LIST COMPLETE! XX SCH ×2 (04:05→08:10)
[2022-06-19] MEDS ORDERED: MED REC COMMENT (04:06)
[2022-06-19] MEDS ORDERED: DEXTROSE 50% 50 ML SYRINGE IV PRN (09:00)
[2022-06-19] MEDS ORDERED: amLODIPine 5 MG TAB PO SCH (09:00)
[2022-06-19] MEDS ORDERED: ATORVASTATIN 20 MG TAB PO SCH (09:00)
[2022-06-19] MEDS ORDERED: CETIRIZINE (ZyrTEC) 10 MG TAB PO SCH (09:00)
[2022-06-19] MEDS ORDERED: atenoloL 50 MG TAB PO SCH (09:00)
[2022-06-19] MEDS ORDERED: GLUCOSE 4GM CHEW TABLET PO PRN (09:00)
[2022-06-19] MEDS ORDERED: GLUCAGON INJ 1MG VIAL SC PRN (09:00)
[2022-06-19] MEDS ORDERED: FUROSEMIDE 20 MG TAB PO SCH (09:00)
[2022-06-19] MEDS ORDERED: LEVOTHYROXINE 88MCG TABLET (0.088 MG) PO SCH ×2 (09:00)
[2022-06-19] MEDS ORDERED: FOLIC ACID 1MG TAB PO SCH (09:00)
[2022-06-19] MEDS ORDERED: FERROUS SULFATE 325MG TAB PO SCH (09:00)
[2022-06-19] MEDS ORDERED: MELOXICAM (MOBIC) 7.5 MG TAB PO SCH (09:00)
[2022-06-19] MEDS ORDERED: OMEPRAZOLE 20MG CAP PO SCH (09:00)
[2022-06-19 09:24] LABS: AMPHETAMINES LEVEL URINE NEGATIVE (NEGATIVE); BARBITURATES URINE NEGATIVE (NEGATIVE); BENZODIAZEPINES URINE NEGATIVE (NEGATIVE); CANNABINOIDS URINE NEGATIVE (NEGATIVE); COCAINE METABOLITE URINE NEGATIVE (NEGATIVE); METHADONE URINE NEGATIVE (NEGATIVE); OPIATES URINE NEGATIVE (NEGATIVE); PHENCYCLIDINE URINE NEGATIVE (NEGATIVE)
[2022-06-19] MEDS: SUCRALFATE 1 GM TAB PO SCH ×2 (09:26→21:58)
[2022-06-19] MEDS: GABAPENTIN 100 MG CAP PO SCH ×3 (09:27→21:59)
[2022-06-19] MEDS: BENZTROPINE 1 MG TAB PO SCH ×3 (09:27→21:59)
[2022-06-19] MEDS: POTASSIUM CHLORIDE 10MEQ SR TABLET PO SCH ×2 (09:28→21:58)
[2022-06-19] MEDS: methocarbamoL 500 MG TAB PO SCH ×2 (10:28→21:00)
[2022-06-19] MEDS: LITHIUM CARBONATE 450 MG **CR** TAB PO SCH ×2 (11:35→21:00)
[2022-06-19] MEDS: INSULIN LISPRO (NovoLOG) PER UNIT SC SCH ×2 (11:57→17:33)
[2022-06-19] MEDS ORDERED: INSULIN LISPRO (NovoLOG) PER UNIT SQ SCH (12:00)
[2022-06-19] MEDS ORDERED: CitaloPRAM (CeleXA) 20 MG TAB PO SCH (21:00)
[2022-06-19] MEDS ORDERED: ARIPiprazole 15 MG TAB (AbiLIFY) PO SCH (21:00)
[2022-06-19] MEDS ORDERED: INSULIN LISPRO (NovoLOG) PER UNIT SC SCH (21:00)
[2022-06-20 01:28] VITALS: BP 106/58
[2022-06-20 01:46] VITALS: BP 106/58
[2022-06-20] MEDS ORDERED: ACETAMINOPHEN TAB 650MG DOSE (2X325MG) PO PRN (03:30)
[2022-06-20] MEDS ORDERED: DEXTROSE 50% 50 ML SYRINGE IV PRN (03:30)
[2022-06-20] MEDS ORDERED: GLUCAGON INJ 1MG VIAL SC PRN (03:30)
[2022-06-20] MEDS ORDERED: MAALOX 30 ML SUSP *UDC PO PRN (03:30)
[2022-06-20] MEDS ORDERED: GLUCOSE 4GM CHEW TABLET PO PRN (03:30)
[2022-06-20] MEDS ORDERED: MOM 30ML SUSPENSION UDC PO PRN (03:30)
[2022-06-20] MEDS: LEVOTHYROXINE 88MCG TABLET (0.088 MG) PO SCH (05:33)
[2022-06-20] MEDS: INSULIN LISPRO (NovoLOG) PER UNIT SC SCH ×4 (06:44→21:00)
[2022-06-20] MEDS ORDERED: POTASSIUM CHLORIDE 10MEQ SR TABLET PO SCH (09:00)
[2022-06-20] MEDS: LEVEMIR (INSULIN DETEMIR) 1 UNITS/0.01ML SC SCH (09:03)
[2022-06-20] MEDS: CETIRIZINE (ZyrTEC) 10 MG TAB PO SCH (12:25)
[2022-06-20] MEDS: FERROUS SULFATE 325MG TAB PO SCH (12:25)
[2022-06-20] MEDS: FOLIC ACID 1MG TAB PO SCH (12:25)
[2022-06-20] MEDS: amLODIPine 5 MG TAB PO SCH (12:26)
[2022-06-20] MEDS: SUCRALFATE 1 GM TAB PO SCH ×2 (14:06→21:21)
[2022-06-20] MEDS: atenoloL 50 MG TAB PO SCH (14:07)
[2022-06-20] MEDS: OMEPRAZOLE 20MG CAP PO SCH (14:07)
[2022-06-20] MEDS: methocarbamoL 500 MG TAB PO SCH ×2 (14:07→21:21)
[2022-06-20] MEDS: LITHIUM CARBONATE 450 MG **CR** TAB PO SCH ×2 (14:08→21:21)
[2022-06-20] MEDS: DULoxetine 30MG CAPSULE (CYMBALTA) PO SCH (14:08)
[2022-06-20] MEDS: MELOXICAM (MOBIC) 7.5 MG TAB PO SCH (14:08)
[2022-06-20] MEDS: POTASSIUM CHLORIDE 10MEQ SR TABLET PO SCH ×2 (14:08→21:21)
[2022-06-20] MEDS: BENZTROPINE 1 MG TAB PO SCH ×2 (15:09→21:21)
[2022-06-20] MEDS: GABAPENTIN 100 MG CAP PO SCH ×2 (15:09→21:21)
[2022-06-20 18:51] VITALS: BP 132/74
[2022-06-20] MEDS: ARIPiprazole 15 MG TAB (AbiLIFY) PO SCH (21:21)
[2022-06-20] MEDS ORDERED: risperiDONE 2 MG TAB PO ONE (23:00)
[2022-06-21] MEDS: LEVOTHYROXINE 88MCG TABLET (0.088 MG) PO SCH (05:47)
[2022-06-21] MEDS: INSULIN LISPRO (NovoLOG) PER UNIT SC SCH ×4 (06:52→21:00)
[2022-06-21 07:09] VITALS: BP 102/68
[2022-06-21 07:16] LABS: CHOLESTEROL RISK RATIO 3.3 (<5); LITHIUM LEVEL 0.43 MEQ/L (0.60-1.20)
[2022-06-21] MEDS: CETIRIZINE (ZyrTEC) 10 MG TAB PO SCH (08:37)
[2022-06-21] MEDS: LEVEMIR (INSULIN DETEMIR) 1 UNITS/0.01ML SC SCH (08:37)
[2022-06-21] MEDS: POTASSIUM CHLORIDE 10MEQ SR TABLET PO SCH ×2 (08:37→21:31)
[2022-06-21] MEDS: BENZTROPINE 1 MG TAB PO SCH ×3 (08:38→21:30)
[2022-06-21] MEDS: methocarbamoL 500 MG TAB PO SCH ×2 (08:38→21:30)
[2022-06-21] MEDS: amLODIPine 5 MG TAB PO SCH (08:38)
[2022-06-21] MEDS: FUROSEMIDE 20 MG TAB PO SCH (08:38)
[2022-06-21] MEDS: DULoxetine 30MG CAPSULE (CYMBALTA) PO SCH (08:38)
[2022-06-21] MEDS: SUCRALFATE 1 GM TAB PO SCH ×2 (08:38→21:30)
[2022-06-21] MEDS: LITHIUM CARBONATE 450 MG **CR** TAB PO SCH ×2 (08:39→21:30)
[2022-06-21] MEDS: MELOXICAM (MOBIC) 7.5 MG TAB PO SCH (08:39)
[2022-06-21] MEDS: GABAPENTIN 100 MG CAP PO SCH ×3 (08:39→21:30)
[2022-06-21] MEDS: atenoloL 50 MG TAB PO SCH (08:39)
[2022-06-21] MEDS: FOLIC ACID 1MG TAB PO SCH (08:39)
[2022-06-21] MEDS: ATORVASTATIN 20 MG TAB PO SCH (08:39)
[2022-06-21] MEDS: FERROUS SULFATE 325MG TAB PO SCH (08:40)
[2022-06-21] MEDS: OMEPRAZOLE 20MG CAP PO SCH (08:40)
[2022-06-21 08:47] VITALS: BP 128/68
[2022-06-21] MEDS ORDERED: LOPERAMIDE 2 MG CAPLET PO PRN (13:40)
[2022-06-21 18:27] VITALS: BP 135/65
[2022-06-21] MEDS: ARIPiprazole 15 MG TAB (AbiLIFY) PO SCH (21:30)
[2022-06-22] MEDS: LEVOTHYROXINE 88MCG TABLET (0.088 MG) PO SCH (05:52)
[2022-06-22] MEDS: INSULIN LISPRO (NovoLOG) PER UNIT SC SCH ×4 (06:31→21:00)
[2022-06-22 06:48] VITALS: BP 123/80
[2022-06-22] MEDS: CETIRIZINE (ZyrTEC) 10 MG TAB PO SCH (09:11)
[2022-06-22] MEDS: LEVEMIR (INSULIN DETEMIR) 1 UNITS/0.01ML SC SCH (09:11)
[2022-06-22] MEDS: LITHIUM CARBONATE 450 MG **CR** TAB PO SCH ×2 (09:11→21:13)
[2022-06-22] MEDS: FOLIC ACID 1MG TAB PO SCH (09:11)
[2022-06-22] MEDS: BENZTROPINE 1 MG TAB PO SCH ×3 (09:12→21:12)
[2022-06-22] MEDS: MELOXICAM (MOBIC) 7.5 MG TAB PO SCH (09:12)
[2022-06-22] MEDS: SUCRALFATE 1 GM TAB PO SCH ×2 (09:12→21:12)
[2022-06-22] MEDS: ATORVASTATIN 20 MG TAB PO SCH (09:12)
[2022-06-22] MEDS: methocarbamoL 500 MG TAB PO SCH ×2 (09:12→21:12)
[2022-06-22] MEDS: POTASSIUM CHLORIDE 10MEQ SR TABLET PO SCH ×2 (09:12→21:12)
[2022-06-22] MEDS: OMEPRAZOLE 20MG CAP PO SCH (09:13)
[2022-06-22] MEDS: GABAPENTIN 100 MG CAP PO SCH ×3 (09:13→21:12)
[2022-06-22] MEDS: amLODIPine 5 MG TAB PO SCH (09:13)
[2022-06-22] MEDS: FERROUS SULFATE 325MG TAB PO SCH (09:14)
[2022-06-22] MEDS: DULoxetine 30MG CAPSULE (CYMBALTA) PO SCH (09:14)
[2022-06-22] MEDS: atenoloL 50 MG TAB PO SCH (09:14)
[2022-06-22 18:07] VITALS: BP 133/71
[2022-06-22] MEDS: ARIPiprazole 10 MG TAB PO SCH (21:12)
[2022-06-23] MEDS: LEVOTHYROXINE 88MCG TABLET (0.088 MG) PO SCH (05:32)
[2022-06-23 06:15] VITALS: BP 148/80
[2022-06-23] MEDS: INSULIN LISPRO (NovoLOG) PER UNIT SC SCH ×4 (06:37→21:00)
[2022-06-23] MEDS: LEVEMIR (INSULIN DETEMIR) 1 UNITS/0.01ML SC SCH (09:37)
[2022-06-23] MEDS: SUCRALFATE 1 GM TAB PO SCH ×2 (09:38→21:23)
[2022-06-23] MEDS: FOLIC ACID 1MG TAB PO SCH (09:38)
[2022-06-23] MEDS: FUROSEMIDE 20 MG TAB PO SCH (09:38)
[2022-06-23] MEDS: MELOXICAM (MOBIC) 7.5 MG TAB PO SCH (09:38)
[2022-06-23] MEDS: GABAPENTIN 100 MG CAP PO SCH ×3 (09:38→21:23)
[2022-06-23] MEDS: FERROUS SULFATE 325MG TAB PO SCH (09:38)
[2022-06-23] MEDS: DULoxetine 30MG CAPSULE (CYMBALTA) PO SCH (09:38)
[2022-06-23] MEDS: BENZTROPINE 1 MG TAB PO SCH ×3 (09:38→21:24)
[2022-06-23] MEDS: methocarbamoL 500 MG TAB PO SCH ×2 (09:38→21:23)
[2022-06-23] MEDS: atenoloL 50 MG TAB PO SCH (09:39)
[2022-06-23] MEDS: LITHIUM CARBONATE 450 MG **CR** TAB PO SCH ×2 (09:39→21:24)
[2022-06-23] MEDS: POTASSIUM CHLORIDE 10MEQ SR TABLET PO SCH ×2 (09:39→21:24)
[2022-06-23] MEDS: CETIRIZINE (ZyrTEC) 10 MG TAB PO SCH (09:39)
[2022-06-23] MEDS: amLODIPine 5 MG TAB PO SCH (09:39)
[2022-06-23] MEDS: ATORVASTATIN 20 MG TAB PO SCH (09:40)
[2022-06-23] MEDS: busPIRone 10 MG TAB PO SCH ×2 (09:43→21:24)
[2022-06-23] MEDS: OMEPRAZOLE 20MG CAP PO SCH (09:43)
[2022-06-23 16:13] LABS: APPEARANCE, URINE MANUAL CLEAR (CLEAR); BILIRUBIN, URINE MANUAL NEGATIVE (NEGATIVE); BLOOD URINE MANUAL NEGATIVE (NEGATIVE); COLOR, URINE MANUAL YELLOW (YELLOW); GLUCOSE, URINE (UA) MANUAL TRACE(50 MG/DL) mg/dL (NEGATIVE); KETONE, URINE MANUAL NEGATIVE (NEGATIVE); LEUKOCYTE ESTERASE, URINE MAN NEGATIVE (NEGATIVE); NITRITE, URINE MANUAL NEGATIVE (NEGATIVE); PROTEIN, URINE MANUAL NEGATIVE (NEGATIVE); UROBILINOGEN, URINE MANUAL NORMAL (NORMAL)
[2022-06-23 18:11] VITALS: BP 109/59
[2022-06-23] MEDS: ARIPiprazole 10 MG TAB PO SCH (21:23)
[2022-06-24] MEDS: LEVOTHYROXINE 88MCG TABLET (0.088 MG) PO SCH (05:49)
[2022-06-24] MEDS: INSULIN LISPRO (NovoLOG) PER UNIT SC SCH ×4 (06:42→21:00)
[2022-06-24 06:50] VITALS: BP 128/78
[2022-06-24] MEDS: methocarbamoL 500 MG TAB PO SCH ×2 (08:17→21:25)
[2022-06-24] MEDS: FOLIC ACID 1MG TAB PO SCH (08:17)
[2022-06-24] MEDS: LEVEMIR (INSULIN DETEMIR) 1 UNITS/0.01ML SC SCH (08:17)
[2022-06-24] MEDS: POTASSIUM CHLORIDE 10MEQ SR TABLET PO SCH ×2 (08:18→21:25)
[2022-06-24] MEDS: DULoxetine 30MG CAPSULE (CYMBALTA) PO SCH (08:18)
[2022-06-24] MEDS: MELOXICAM (MOBIC) 7.5 MG TAB PO SCH (08:18)
[2022-06-24] MEDS: FERROUS SULFATE 325MG TAB PO SCH (08:18)
[2022-06-24] MEDS: GABAPENTIN 100 MG CAP PO SCH ×3 (08:18→21:25)
[2022-06-24] MEDS: ATORVASTATIN 20 MG TAB PO SCH (08:18)
[2022-06-24] MEDS: SUCRALFATE 1 GM TAB PO SCH ×2 (08:18→21:25)
[2022-06-24] MEDS: CETIRIZINE (ZyrTEC) 10 MG TAB PO SCH (08:18)
[2022-06-24] MEDS: atenoloL 50 MG TAB PO SCH (08:19)
[2022-06-24] MEDS: busPIRone 10 MG TAB PO SCH ×2 (08:19→21:25)
[2022-06-24] MEDS: LITHIUM CARBONATE 450 MG **CR** TAB PO SCH ×2 (08:19→21:25)
[2022-06-24] MEDS: OMEPRAZOLE 20MG CAP PO SCH (08:19)
[2022-06-24] MEDS: BENZTROPINE 1 MG TAB PO SCH ×3 (08:19→21:25)
[2022-06-24] MEDS: amLODIPine 5 MG TAB PO SCH (08:19)
[2022-06-24 18:29] VITALS: BP 121/65
[2022-06-24] MEDS: traZODone 50 MG TAB PO PRN (21:24)
[2022-06-24] MEDS: ARIPiprazole 10 MG TAB PO SCH (21:24)
[2022-06-25] MEDS: LEVOTHYROXINE 88MCG TABLET (0.088 MG) PO SCH (05:50)
[2022-06-25] MEDS: INSULIN LISPRO (NovoLOG) PER UNIT SC SCH ×4 (07:02→21:00)
[2022-06-25 07:04] VITALS: BP 144/92
[2022-06-25] MEDS: amLODIPine 5 MG TAB PO SCH (08:05)
[2022-06-25] MEDS: CETIRIZINE (ZyrTEC) 10 MG TAB PO SCH (08:05)
[2022-06-25] MEDS: atenoloL 50 MG TAB PO SCH (08:05)
[2022-06-25] MEDS: BENZTROPINE 1 MG TAB PO SCH ×3 (08:05→23:04)
[2022-06-25] MEDS: busPIRone 10 MG TAB PO SCH ×2 (08:05→23:04)
[2022-06-25] MEDS: ATORVASTATIN 20 MG TAB PO SCH (08:05)
[2022-06-25] MEDS: DULoxetine 30MG CAPSULE (CYMBALTA) PO SCH (08:05)
[2022-06-25] MEDS: methocarbamoL 500 MG TAB PO SCH ×2 (08:06→23:04)
[2022-06-25] MEDS: SUCRALFATE 1 GM TAB PO SCH ×2 (08:06→23:03)
[2022-06-25] MEDS: FOLIC ACID 1MG TAB PO SCH (08:10)
[2022-06-25] MEDS: OMEPRAZOLE 20MG CAP PO SCH (08:10)
[2022-06-25] MEDS: GABAPENTIN 100 MG CAP PO SCH ×3 (08:10→23:04)
[2022-06-25] MEDS: POTASSIUM CHLORIDE 10MEQ SR TABLET PO SCH ×2 (08:10→23:04)
[2022-06-25] MEDS: MELOXICAM (MOBIC) 7.5 MG TAB PO SCH (08:10)
[2022-06-25] MEDS: FUROSEMIDE 20 MG TAB PO SCH (08:10)
[2022-06-25] MEDS: FERROUS SULFATE 325MG TAB PO SCH (08:10)
[2022-06-25] MEDS: LITHIUM CARBONATE 450 MG **CR** TAB PO SCH ×2 (08:10→23:04)
[2022-06-25] MEDS: LEVEMIR (INSULIN DETEMIR) 1 UNITS/0.01ML SC SCH (08:12)
[2022-06-25 18:00] VITALS: BP 108/53
[2022-06-25] MEDS: ARIPiprazole 10 MG TAB PO SCH (23:04)
[2022-06-25] MEDS: traZODone 50 MG TAB PO PRN (23:04)
[2022-06-26] MEDS: LEVOTHYROXINE 88MCG TABLET (0.088 MG) PO SCH (05:56)
[2022-06-26 06:35] VITALS: BP 144/90
[2022-06-26] MEDS: INSULIN LISPRO (NovoLOG) PER UNIT SC SCH ×4 (07:07→21:00)
[2022-06-26] MEDS: FOLIC ACID 1MG TAB PO SCH (09:34)
[2022-06-26] MEDS: DULoxetine 30MG CAPSULE (CYMBALTA) PO SCH (09:34)
[2022-06-26] MEDS: amLODIPine 5 MG TAB PO SCH (09:35)
[2022-06-26] MEDS: ATORVASTATIN 20 MG TAB PO SCH (09:35)
[2022-06-26] MEDS: FERROUS SULFATE 325MG TAB PO SCH (09:35)
[2022-06-26] MEDS: GABAPENTIN 100 MG CAP PO SCH ×3 (09:35→21:23)
[2022-06-26] MEDS: POTASSIUM CHLORIDE 10MEQ SR TABLET PO SCH ×2 (09:35→21:22)
[2022-06-26] MEDS: SUCRALFATE 1 GM TAB PO SCH ×2 (09:36→21:23)
[2022-06-26] MEDS: BENZTROPINE 1 MG TAB PO SCH ×3 (09:36→21:23)
[2022-06-26] MEDS: atenoloL 50 MG TAB PO SCH (09:36)
[2022-06-26] MEDS: LITHIUM CARBONATE 450 MG **CR** TAB PO SCH ×2 (09:36→21:23)
[2022-06-26] MEDS: OMEPRAZOLE 20MG CAP PO SCH (09:36)
[2022-06-26] MEDS: busPIRone 10 MG TAB PO SCH ×2 (09:36→21:23)
[2022-06-26] MEDS: methocarbamoL 500 MG TAB PO SCH ×2 (09:36→21:23)
[2022-06-26] MEDS: MELOXICAM (MOBIC) 7.5 MG TAB PO SCH (09:36)
[2022-06-26] MEDS: CETIRIZINE (ZyrTEC) 10 MG TAB PO SCH (09:36)
[2022-06-26] MEDS: LEVEMIR (INSULIN DETEMIR) 1 UNITS/0.01ML SC SCH (09:37)
[2022-06-26] MEDS ORDERED: OLANZapine 2.5MG TABLET PO PRN (11:30)
[2022-06-26 16:25] VITALS: BP 106/56
[2022-06-26] MEDS: ARIPiprazole 10 MG TAB PO SCH (21:22)
[2022-06-27] MEDS: LEVOTHYROXINE 88MCG TABLET (0.088 MG) PO SCH (05:37)
[2022-06-27] MEDS: INSULIN LISPRO (NovoLOG) PER UNIT SC SCH ×4 (06:37→21:00)
[2022-06-27 06:45] VITALS: BP 131/79
[2022-06-27] MEDS: GABAPENTIN 100 MG CAP PO SCH ×3 (08:32→21:55)
[2022-06-27] MEDS: FOLIC ACID 1MG TAB PO SCH (08:32)
[2022-06-27] MEDS: SUCRALFATE 1 GM TAB PO SCH ×2 (08:32→21:54)
[2022-06-27] MEDS: DULoxetine 30MG CAPSULE (CYMBALTA) PO SCH (08:32)
[2022-06-27] MEDS: atenoloL 50 MG TAB PO SCH (08:32)
[2022-06-27] MEDS: ATORVASTATIN 20 MG TAB PO SCH (08:32)
[2022-06-27] MEDS: LITHIUM CARBONATE 450 MG **CR** TAB PO SCH ×2 (08:33→21:55)
[2022-06-27] MEDS: FERROUS SULFATE 325MG TAB PO SCH (08:33)
[2022-06-27] MEDS: POTASSIUM CHLORIDE 10MEQ SR TABLET PO SCH ×2 (08:33→21:55)
[2022-06-27] MEDS: amLODIPine 5 MG TAB PO SCH (08:33)
[2022-06-27] MEDS: BENZTROPINE 1 MG TAB PO SCH ×3 (08:33→21:55)
[2022-06-27] MEDS: methocarbamoL 500 MG TAB PO SCH ×2 (08:33→21:54)
[2022-06-27] MEDS: CETIRIZINE (ZyrTEC) 10 MG TAB PO SCH (08:33)
[2022-06-27] MEDS: busPIRone 10 MG TAB PO SCH ×2 (08:33→21:54)
[2022-06-27] MEDS: OMEPRAZOLE 20MG CAP PO SCH (08:34)
[2022-06-27] MEDS: MELOXICAM (MOBIC) 7.5 MG TAB PO SCH (08:34)
[2022-06-27] MEDS: FUROSEMIDE 20 MG TAB PO SCH (08:34)
[2022-06-27] MEDS: LEVEMIR (INSULIN DETEMIR) 1 UNITS/0.01ML SC SCH (08:34)
[2022-06-27 13:36] VITALS: BP 119/74
[2022-06-27 16:09] VITALS: BP_SYST 125; BP_SYST 138; BP_DIAS 66; BP_DIAS 89
[2022-06-27] MEDS: ARIPiprazole 10 MG TAB PO SCH (21:55)
[2022-06-28] MEDS: LEVOTHYROXINE 88MCG TABLET (0.088 MG) PO SCH (05:45)
[2022-06-28] MEDS: SUCRALFATE 1 GM TAB PO SCH ×2 (06:33→22:20)
[2022-06-28] MEDS: INSULIN LISPRO (NovoLOG) PER UNIT SC SCH ×4 (06:33→21:00)
[2022-06-28 06:50] VITALS: BP 116/70
[2022-06-28] MEDS: methocarbamoL 500 MG TAB PO SCH ×2 (09:37→22:20)
[2022-06-28] MEDS: LEVEMIR (INSULIN DETEMIR) 1 UNITS/0.01ML SC SCH (09:37)
[2022-06-28] MEDS: DULoxetine 30MG CAPSULE (CYMBALTA) PO SCH (09:37)
[2022-06-28] MEDS: FERROUS SULFATE 325MG TAB PO SCH (09:37)
[2022-06-28] MEDS: OMEPRAZOLE 20MG CAP PO SCH (09:37)
[2022-06-28] MEDS: ATORVASTATIN 20 MG TAB PO SCH (09:37)
[2022-06-28] MEDS: LITHIUM CARBONATE 450 MG **CR** TAB PO SCH ×2 (09:37→22:21)
[2022-06-28] MEDS: GABAPENTIN 100 MG CAP PO SCH ×3 (09:38→22:20)
[2022-06-28] MEDS: busPIRone 10 MG TAB PO SCH ×2 (09:38→22:21)
[2022-06-28] MEDS: FOLIC ACID 1MG TAB PO SCH (09:38)
[2022-06-28] MEDS: CETIRIZINE (ZyrTEC) 10 MG TAB PO SCH (09:38)
[2022-06-28] MEDS: BENZTROPINE 1 MG TAB PO SCH ×3 (09:38→22:21)
[2022-06-28] MEDS: MELOXICAM (MOBIC) 7.5 MG TAB PO SCH (09:38)
[2022-06-28] MEDS: POTASSIUM CHLORIDE 10MEQ SR TABLET PO SCH ×2 (09:39→22:20)
[2022-06-28] MEDS: atenoloL 50 MG TAB PO SCH (09:46)
[2022-06-28] MEDS: amLODIPine 5 MG TAB PO SCH (09:49)
[2022-06-28 16:32] VITALS: BP 109/66
[2022-06-28] MEDS: ARIPiprazole 10 MG TAB PO SCH (22:20)
[2022-06-29] MEDS: LEVOTHYROXINE 88MCG TABLET (0.088 MG) PO SCH (05:42)
[2022-06-29 06:21] VITALS: BP 107/62
[2022-06-29] MEDS: SUCRALFATE 1 GM TAB PO SCH (06:33)
[2022-06-29] MEDS: INSULIN LISPRO (NovoLOG) PER UNIT SC SCH ×2 (06:34→12:09)
[2022-06-29] MEDS: GABAPENTIN 100 MG CAP PO SCH (09:10)
[2022-06-29] MEDS: amLODIPine 5 MG TAB PO SCH (09:10)
[2022-06-29] MEDS: FOLIC ACID 1MG TAB PO SCH (09:10)
[2022-06-29] MEDS: MELOXICAM (MOBIC) 7.5 MG TAB PO SCH (09:10)
[2022-06-29] MEDS: OMEPRAZOLE 20MG CAP PO SCH (09:10)
[2022-06-29 09:11] VITALS: BP 159/66
[2022-06-29] MEDS: methocarbamoL 500 MG TAB PO SCH (09:11)
[2022-06-29] MEDS: atenoloL 50 MG TAB PO SCH (09:11)
[2022-06-29] MEDS: FUROSEMIDE 20 MG TAB PO SCH (09:11)
[2022-06-29] MEDS: POTASSIUM CHLORIDE 10MEQ SR TABLET PO SCH (09:11)
[2022-06-29] MEDS: CETIRIZINE (ZyrTEC) 10 MG TAB PO SCH (09:12)
[2022-06-29] MEDS: DULoxetine 30MG CAPSULE (CYMBALTA) PO SCH (09:12)
[2022-06-29] MEDS: ATORVASTATIN 20 MG TAB PO SCH (09:12)
[2022-06-29] MEDS: LITHIUM CARBONATE 450 MG **CR** TAB PO SCH (09:12)
[2022-06-29] MEDS: busPIRone 10 MG TAB PO SCH (09:12)
[2022-06-29] MEDS: BENZTROPINE 1 MG TAB PO SCH (09:12)
[2022-06-29] MEDS: FERROUS SULFATE 325MG TAB PO SCH (09:12)
[2022-06-29] MEDS: LEVEMIR (INSULIN DETEMIR) 1 UNITS/0.01ML SC SCH (09:13)
[2022-06-29] MEDS ORDERED: DULO60CA35 PO (12:02)
[2022-06-29] MEDS ORDERED: LITH45TASA PO (12:02)
[2022-06-29] MEDS ORDERED: INVE234I IM (12:02)
[2022-07-03] MEDS ORDERED: ZYPR2.5T2 PO (10:43)
== END 2022-06-29 15:00 | disposition home or self-care (01) | DRG 750 ==
LOC: M ED 23:34 → M ED INP 06-20 03:30 → M PSY 06-20 04:01
PROVIDERS: ADMIT Student in an Organized Health Care Education/Training Program; ATTEND Student in an Organized Health Care Education/Training Program
DX: F25.0 Schizoaffective disorder, bipolar type (principal); F31.5 Bipolar disorder, current episode depressed, severe, with psychotic features; F84.9 Pervasive developmental disorder, unspecified; Z88.2 Allergy status to sulfonamides; Z88.8 Allergy status to other drugs, medicaments and biological substances; Z79.899 Other long term (current) drug therapy; Z79.4 Long term (current) use of insulin; I10 Essential (primary) hypertension; E11.51 Type 2 diabetes mellitus with diabetic peripheral angiopathy without gangrene; E03.9 Hypothyroidism, unspecified; F41.9 Anxiety disorder, unspecified; K76.0 Fatty (change of) liver, not elsewhere classified; K21.9 Gastro-esophageal reflux disease without esophagitis; K86.1 Other chronic pancreatitis; E66.01 Morbid (severe) obesity due to excess calories; E78.5 Hyperlipidemia, unspecified; E55.9 Vitamin D deficiency, unspecified

== ENCOUNTER → 2022-08-18 | Outpatient (REF) | payer OTHER ==
[~2022-08-18] MED LIST changes: +DULO60CA35 PO; +LITH45TASA PO; +VITA200016 PO; +ZYPR2.5T2 PO
[2022-08-18 19:32] LABS: HEMOGLOBIN A1c 8.4 % (4.0-6.0)
[2022-08-18 19:36] LABS: ALBUMIN 3.5 G/DL (3.2-5.2); ALKALINE PHOSPHATASE 98 U/L (46-116); ALT/SGPT 21 U/L (7.0-40); AST/SGOT 11 U/L (<34); BILIRUBIN,TOTAL 0.4 MG/DL (0.3-1.2); BLOOD UREA NITROGEN 11 MG/DL (9-23); CALCIUM LEVEL 9.7 MG/DL (8.5-10.1); CARBON DIOXIDE LEVEL 30 MMOL/L (20-31); CHLORIDE LEVEL 101 MMOL/L (98-107); CREATININE FOR GFR 0.66 MG/DL (0.55-1.30); GLOMERULAR FILTRATION RATE > 60.0 (>58); GLUCOSE, FASTING 256 MG/DL (60-100); POTASSIUM SERUM 4.4 MMOL/L (3.5-5.1); SODIUM LEVEL 139 MMOL/L (136-145); TOTAL PROTEIN 6.5 G/DL (5.7-8.2)
== END ==
LOC: M SFHCCLAY 14:50
PROVIDERS: ATTEND Nurse Practitioner Family
DX: E11.65 Type 2 diabetes mellitus with hyperglycemia (principal)

== ENCOUNTER → 2022-08-18 | Outpatient (REF) | payer OTHER | LOC: M LAB REF 17:48 | PROVIDERS: ATTEND Nurse Practitioner Psychiatric/Mental Health | DX: F31.75 Bipolar disorder, in partial remission, most recent episode depressed (principal); F43.10 Post-traumatic stress disorder, unspecified; F60.3 Borderline personality disorder; F60.7 Dependent personality disorder; G24.01 Drug induced subacute dyskinesia; Z65.8 Other specified problems related to psychosocial circumstances ==

== ENCOUNTER → 2022-11-30 | Outpatient (CLI) | payer OTHER ==
[~2022-11-30] MED LIST changes: -BENZ-52 PO; +BENZ1TAB5 PO; -POTA10CA32 PO; +POTA10CA33 PO
[2022-11-30 17:58] LABS: LIPASE 21 U/L (12-53)
[2022-11-30 17:59] LABS: AMYLASE 31 U/L (30-118); HEMATOCRIT 41.5 % (36.0-47.0); MEAN CORPUSCULAR HEMOGLOBIN 28.1 pg (27.0-33.0); MEAN CORPUSCULAR HGB CONC 31.3 g/dl (32.0-36.5); MEAN CORPUSCULAR VOLUME 89.6 fl (80.0-96.0); PLATELET COUNT, AUTOMATED 302 10^3/uL (150-450); RED BLOOD COUNT 4.63 10^6/uL (4.00-5.40); WHITE BLOOD COUNT 9.8 10^3/uL (4.0-10.0)
[2022-11-30 18:00] LABS: ALBUMIN 3.6 G/DL (3.2-5.2); ALKALINE PHOSPHATASE 90 U/L (46-116); ALT/SGPT 17 U/L (7.0-40); AST/SGOT 14 U/L (<34); BILIRUBIN,TOTAL 0.8 MG/DL (0.3-1.2); BLOOD UREA NITROGEN 10 MG/DL (9-23); CALCIUM LEVEL 9.3 MG/DL (8.5-10.1); CARBON DIOXIDE LEVEL 31 MMOL/L (20-31); CHLORIDE LEVEL 105 MMOL/L (98-107); CHOLESTEROL LEVEL 125 MG/DL (<200); CHOLESTEROL RISK RATIO 3.12 (<5); CREATININE FOR GFR 0.64 MG/DL (0.55-1.30); GLOMERULAR FILTRATION RATE > 60.0 (>51); GLUCOSE, FASTING 144 MG/DL (60-100); LDL CHOLESTEROL 70.6 MG/DL (<100); POTASSIUM SERUM 3.9 MMOL/L (3.5-5.1); SODIUM LEVEL 140 MMOL/L (136-145); TOTAL PROTEIN 6.5 G/DL (5.7-8.2); TRIGLYCERIDES LEVEL 72 MG/DL (<150)
[2022-11-30 18:02] LABS: FREE T4 0.97 NG/DL (0.89-1.76); THYROID STIMULATING HORMONE 1.926 uIU/ML (0.55-4.78)
== END ==
LOC: M PLALAB 15:17
PROVIDERS: ATTEND Nurse Practitioner Family
DX: Z13.220 Encounter for screening for lipoid disorders (principal)

== ENCOUNTER → 2022-11-30 | Outpatient (CLI) | payer OTHER ==
[2022-11-30 17:57] LABS: BASO # 0.1 10^3/uL (0.0-0.2); BASO % 0.9 % (0.0-1.0); EOS # 0.5 10^3/uL (0.0-0.5); EOS % 4.4 % (0.0-3.0); HEMATOCRIT 41.5 % (36.0-47.0); LYMPH # 2.5 10^3/uL (1.5-5.0); LYMPH % 24.7 % (24.0-44.0); MEAN CORPUSCULAR HEMOGLOBIN 28.1 pg (27.0-33.0); MEAN CORPUSCULAR HGB CONC 31.3 g/dl (32.0-36.5); MEAN CORPUSCULAR VOLUME 89.8 fl (80.0-96.0); MONO # 0.6 10^3/uL (0.0-0.8); MONO % 5.7 % (2.0-8.0); NEUTROPHILS # 6.6 10^3/uL (1.5-8.5); NEUTROPHILS % 63.9 % (36.0-66.0); PLATELET COUNT, AUTOMATED 292 10^3/uL (150-450); RED BLOOD COUNT 4.62 10^6/uL (4.00-5.40); WHITE BLOOD COUNT 10.3 10^3/uL (4.0-10.0)
[2022-11-30 18:30] LABS: LITHIUM LEVEL 0.67 MMOL/L (0.60-1.20)
[2022-11-30 18:34] LABS: ALBUMIN 3.7 G/DL (3.2-5.2); ALKALINE PHOSPHATASE 91 U/L (46-116); ALT/SGPT 19 U/L (7.0-40); AST/SGOT 12 U/L (<34); BILIRUBIN,DIRECT 0.3 MG/DL (<0.4); BILIRUBIN,TOTAL 0.9 MG/DL (0.3-1.2); BLOOD UREA NITROGEN 9 MG/DL (9-23); CALCIUM LEVEL 9.3 MG/DL (8.5-10.1); CARBON DIOXIDE LEVEL 31 MMOL/L (20-31); CHLORIDE LEVEL 104 MMOL/L (98-107); CHOLESTEROL LEVEL 124 MG/DL (<200); CHOLESTEROL RISK RATIO 3.06 (<5); CREATININE FOR GFR 0.63 MG/DL (0.55-1.30); GLOMERULAR FILTRATION RATE > 60.0 (>51); GLUCOSE, FASTING 142 MG/DL (60-100); HDL CHOLESTEROL 40.5 MG/DL (>40); LDL CHOLESTEROL 68.9 MG/DL (<100); NON-HDL-C 83.5 MG/DL; POTASSIUM SERUM 3.9 MMOL/L (3.5-5.1); SODIUM LEVEL 139 MMOL/L (136-145); TOTAL PROTEIN 6.4 G/DL (5.7-8.2); TRIGLYCERIDES LEVEL 73 MG/DL (<150)
[2022-11-30 18:51] LABS: HCG, SERUM QUALITATIVE NEGATIVE (NEGATIVE)
== END ==
LOC: M PLALAB 15:15
PROVIDERS: ATTEND Nurse Practitioner Psychiatric/Mental Health
DX: F25.0 Schizoaffective disorder, bipolar type (principal)

== ENCOUNTER → 2022-12-13 | Outpatient (REF) | payer OTHER ==
[2022-12-13 17:39] LABS: CHOLESTEROL RISK RATIO 3.23 (<5); HDL CHOLESTEROL 41.7 MG/DL (>40); LDL CHOLESTEROL 80.1 MG/DL (<100); NON-HDL-C 93.3 MG/DL
[2022-12-13 18:14] LABS: HEMOGLOBIN A1c 8.2 % (4.0-6.0)
== END ==
LOC: M SFHCCLAY 11:41
PROVIDERS: ATTEND Nurse Practitioner Family
DX: E11.65 Type 2 diabetes mellitus with hyperglycemia (principal)

== ENCOUNTER → 2022-12-20 | Outpatient (CLI) | payer OTHER ==
[~2022-12-20] MED LIST changes: +ARTIDRO4 OU; +FLUT50SP17; -FLUTISP; -POLYOPD OU
[2022-12-20 19:30] LABS: THYROXINE (T4) 11.5 UG/DL (4.5-10.9)
[2022-12-20 19:31] LABS: THYROID STIMULATING HORMONE 2.5 uIU/ML (0.55-4.78); TOTAL T3 113.7 NG/DL (60.0-181.0)
== END ==
LOC: M PLALAB 15:51
PROVIDERS: ATTEND Psychiatry & Neurology Psychiatry
DX: F25.0 Schizoaffective disorder, bipolar type (principal); F43.10 Post-traumatic stress disorder, unspecified

== ENCOUNTER → 2023-01-05 | Outpatient (CLI) | payer OTHER, MEDICAID | LOC: M CLY 13:27 | PROVIDERS: ATTEND Physician Assistant | DX: R05.2 Subacute cough (principal) ==

== ENCOUNTER → 2023-01-05 | Outpatient (CLI) | payer OTHER | LOC: M CLY 13:22 | PROVIDERS: ATTEND Physician Assistant | DX: R05.2 Subacute cough (principal); Z53.9 Procedure and treatment not carried out, unspecified reason ==

== ENCOUNTER → 2023-03-16 | Outpatient (CLI) | payer OTHER, MEDICAID ==
[~2023-03-16] MED LIST changes: +BENZ0.5T2 PO; -BENZ0.5T23 PO; -K-TA10TA2 PO; +POTA-165 PO; -POTA10CA33 PO; +POTA10CA60 PO
== END ==
LOC: M CLY 13:32
PROVIDERS: ATTEND Physician Assistant Medical
DX: M54.42 Lumbago with sciatica, left side (principal)

== ENCOUNTER → 2023-05-14 | Outpatient (CLI) | payer OTHER ==
[~2023-05-14] MED LIST changes: -INSU100V2 SQ; +INSU100V6 SQ
[2023-05-14 17:51] LABS: HCG, SERUM QUALITATIVE NEGATIVE (NEGATIVE)
[2023-05-14 17:53] LABS: THYROXINE (T4) 10.3 UG/DL (4.5-10.9); TOTAL T3 101.7 NG/DL (60.0-181.0)
[2023-05-14 17:54] LABS: THYROID STIMULATING HORMONE 2.553 uIU/ML (0.55-4.78)
== END ==
LOC: M PLALAB 15:28
PROVIDERS: ATTEND Psychiatry & Neurology Psychiatry
DX: F25.0 Schizoaffective disorder, bipolar type (principal); F43.10 Post-traumatic stress disorder, unspecified; F60.3 Borderline personality disorder; F60.7 Dependent personality disorder; G24.01 Drug induced subacute dyskinesia; Z65.8 Other specified problems related to psychosocial circumstances

== ENCOUNTER 2023-06-26 12:20 | Emergency (ER) | payer MEDICAID, OTHER ==
[~2023-06-26] VITALS: Ht 170.2 cm; Wt 119.7 kg
[~2023-06-26 12:20] MED LIST changes: -CEFD300C41; +CEFD300C42; +LORA-1041 PO; -LORA-674 PO; +MECL-209 PO; -MECL1TAB31 PO
[2023-06-26 14:54] VITALS: BP 133/67; TEMP 98.1; O2SAT 96
== END 2023-06-26 14:57 | disposition home or self-care (01) ==
LOC: M ED 12:20
DX: F32.A Depression, unspecified (principal); E11.9 Type 2 diabetes mellitus without complications; I10 Essential (primary) hypertension; F31.9 Bipolar disorder, unspecified; K21.9 Gastro-esophageal reflux disease without esophagitis; G47.33 Obstructive sleep apnea (adult) (pediatric); E55.9 Vitamin D deficiency, unspecified; F41.9 Anxiety disorder, unspecified; Z88.2 Allergy status to sulfonamides; Z88.1 Allergy status to other antibiotic agents; Z88.8 Allergy status to other drugs, medicaments and biological substances

== ENCOUNTER 2023-07-13 05:04 | Inpatient (IN) | payer MEDICAID, OTHER ==
[~2023-07-13] VITALS: Ht 170.2 cm; Wt 122.6 kg
[2023-07-13 06:10] LABS: HEMATOCRIT 37.6 % (36.0-47.0); HEMOGLOBIN 12.2 g/dl (12.0-15.5); MEAN CORPUSCULAR HEMOGLOBIN 28.9 pg (27.0-33.0); MEAN CORPUSCULAR HGB CONC 32.4 g/dl (32.0-36.5); MEAN CORPUSCULAR VOLUME 89.1 fl (80.0-96.0); PLATELET COUNT, AUTOMATED 283 10^3/uL (150-450); RED BLOOD COUNT 4.22 10^6/uL (4.00-5.40); WHITE BLOOD COUNT 8.4 10^3/uL (4.0-10.0)
[2023-07-13 06:24] LABS: AMPHETAMINES LEVEL URINE NEGATIVE (NEGATIVE); BARBITURATES URINE NEGATIVE (NEGATIVE); COCAINE METABOLITE URINE NEGATIVE (NEGATIVE)
[2023-07-13 06:25] LABS: BENZODIAZEPINES URINE NEGATIVE (NEGATIVE); CANNABINOIDS URINE NEGATIVE (NEGATIVE); METHADONE URINE NEGATIVE (NEGATIVE); OPIATES URINE NEGATIVE (NEGATIVE); PHENCYCLIDINE URINE NEGATIVE (NEGATIVE)
[2023-07-13 06:27] LABS: ETHYL ALCOHOL (ETHANOL) < 0.003 % (0.000-0.010)
[2023-07-13 06:29] LABS: ALBUMIN 3.4 G/DL (3.2-5.2); ALKALINE PHOSPHATASE 93 U/L (46-116); ALT/SGPT 15 U/L (7.0-40); AST/SGOT 9 U/L (<34); BILIRUBIN,DIRECT 0.3 MG/DL (<0.4); BILIRUBIN,TOTAL 0.8 MG/DL (0.3-1.2); BLOOD UREA NITROGEN 8 MG/DL (9-23); CALCIUM LEVEL 9.2 MG/DL (8.5-10.1); CARBON DIOXIDE LEVEL 27 MMOL/L (20-31); CHLORIDE LEVEL 107 MMOL/L (98-107); CREATININE FOR GFR 0.51 MG/DL (0.55-1.30); GLOMERULAR FILTRATION RATE > 60.0 (>51); GLUCOSE, FASTING 214 MG/DL (60-100); POTASSIUM SERUM 3.4 MMOL/L (3.5-5.1); SALICYLATE LEVEL < 3.0 MG/DL (<30); SODIUM LEVEL 143 MMOL/L (136-145); TOTAL PROTEIN 6.3 G/DL (5.7-8.2)
[2023-07-13 06:31] LABS: THYROID STIMULATING HORMONE 5.559 uIU/ML (0.55-4.78)
[2023-07-13] MEDS: NICOTINE 21MG/24HR 1 EA TRANSDERMAL TD SCH (09:00)
[2023-07-13] MEDS ORDERED: AMLO1TAB24 PO (09:00)
[2023-07-13] MEDS ORDERED: FURO20TA2 PO (09:00)
[2023-07-13] MEDS ORDERED: BASA100I SC (09:00)
[2023-07-13] MEDS ORDERED: METF-838 PO (09:59)
[2023-07-13] MEDS ORDERED: GABA-282 PO (09:59)
[2023-07-13] MEDS ORDERED: LITH45TASA PO (09:59)
[2023-07-13] MEDS ORDERED: DULO60CA35 PO (09:59)
[2023-07-13] MEDS ORDERED: INVE234I IM (09:59)
[2023-07-13] MEDS ORDERED: SUCR1TAB56 PO (09:59)
[2023-07-13] MEDS ORDERED: DULO1CAP5 PO (09:59)
[2023-07-13] MEDS ORDERED: OMEP-173 PO (09:59)
[2023-07-13] MEDS ORDERED: HOME MED LIST COMPLETE! XX SCH (10:00)
[2023-07-13] MEDS ORDERED: POTASSIUM CHLORIDE 10MEQ SR TABLET PO ONE (11:40)
[2023-07-13] MEDS ORDERED: GLUCOSE 4GM CHEW TABLET PO PRN (12:45)
[2023-07-13] MEDS ORDERED: MOM 30ML SUSPENSION UDC PO PRN (12:45)
[2023-07-13] MEDS ORDERED: GLUCAGON INJ 1MG VIAL SC PRN (12:45)
[2023-07-13] MEDS ORDERED: MAALOX 30 ML SUSP *UDC PO PRN (12:45)
[2023-07-13] MEDS ORDERED: IBUPROFEN 400MG TAB PO PRN (12:45)
[2023-07-13] MEDS ORDERED: DEXTROSE 50% 50ML SYRINGE IV PRN (12:45)
[2023-07-13] MEDS: FOLIC ACID 1MG TAB PO SCH (13:19)
[2023-07-13] MEDS: OMEPRAZOLE 20MG CAP PO SCH (13:20)
[2023-07-13] MEDS: atenoloL 50 MG TAB PO SCH (13:21)
[2023-07-13] MEDS: DULoxetine 30MG CAPSULE (CYMBALTA) PO SCH (13:30)
[2023-07-13] MEDS: FUROSEMIDE 20 MG TAB PO SCH (13:30)
[2023-07-13 14:51] VITALS: BP 133/68; TEMP 97.9; O2SAT 94
[2023-07-13] MEDS: BENZTROPINE 1 MG TAB PO SCH ×2 (15:48→21:24)
[2023-07-13] MEDS: MELOXICAM (MOBIC) 7.5 MG TAB PO SCH (15:48)
[2023-07-13] MEDS: diphenhydrAMINE 25MG CAP PO PRN (15:49)
[2023-07-13] MEDS: INSULIN LISPRO (NovoLOG) PER UNIT SC SCH ×2 (17:05→21:00)
[2023-07-13] MEDS: SUCRALFATE 1 GM TAB PO SCH (17:05)
[2023-07-13] MEDS: metFORMIN XR 500MG TAB *GLUCOPHAGE XR PO SCH (17:06)
[2023-07-13] MEDS: FERROUS SULFATE 325MG TAB PO SCH (21:24)
[2023-07-13] MEDS: CETIRIZINE (ZyrTEC) 10 MG TAB PO SCH (21:24)
[2023-07-13] MEDS: POTASSIUM CHLORIDE 10MEQ SR TABLET PO SCH (21:24)
[2023-07-13] MEDS: GABAPENTIN 300 MG CAP PO SCH (21:24)
[2023-07-13] MEDS: ATORVASTATIN 20 MG TAB PO SCH (21:24)
[2023-07-13] MEDS: LITHIUM CARBONATE 450 MG **CR** TAB PO SCH (21:24)
[2023-07-13] MEDS: methocarbamoL 500 MG TAB PO SCH (21:24)
[2023-07-13] MEDS: amLODIPine 5 MG TAB PO SCH (21:28)
[2023-07-14] MEDS: LEVOTHYROXINE 88MCG TABLET (0.088 MG) PO SCH (05:50)
[2023-07-14] MEDS: INSULIN LISPRO (NovoLOG) PER UNIT SC SCH ×4 (06:32→20:11)
[2023-07-14 06:40] VITALS: BP 104/52; TEMP 97.6; O2SAT 95
[2023-07-14] MEDS: NICOTINE 21MG/24HR 1 EA TRANSDERMAL TD SCH (08:20)
[2023-07-14] MEDS: POTASSIUM CHLORIDE 10MEQ SR TABLET PO SCH ×2 (08:24→20:07)
[2023-07-14] MEDS: BENZTROPINE 1 MG TAB PO SCH ×3 (08:24→20:07)
[2023-07-14] MEDS: FOLIC ACID 1MG TAB PO SCH (08:24)
[2023-07-14] MEDS: MELOXICAM (MOBIC) 7.5 MG TAB PO SCH (08:24)
[2023-07-14] MEDS: GABAPENTIN 300 MG CAP PO SCH ×2 (08:25→20:07)
[2023-07-14] MEDS: OMEPRAZOLE 20MG CAP PO SCH (08:25)
[2023-07-14] MEDS: methocarbamoL 500 MG TAB PO SCH ×2 (08:25→20:06)
[2023-07-14] MEDS: LITHIUM CARBONATE 450 MG **CR** TAB PO SCH ×2 (08:25→20:06)
[2023-07-14] MEDS: atenoloL 50 MG TAB PO SCH (08:25)
[2023-07-14] MEDS: SUCRALFATE 1 GM TAB PO SCH ×2 (08:25→17:06)
[2023-07-14] MEDS: DULoxetine 30MG CAPSULE (CYMBALTA) PO SCH (08:26)
[2023-07-14] MEDS: LEVEMIR (INSULIN DETEMIR) 1 UNITS/0.01ML SC SCH ×2 (09:59→20:08)
[2023-07-14 12:04] VITALS: BP 118/78; TEMP 97.6; O2SAT 95
[2023-07-14 16:26] VITALS: BP 131/70; TEMP 98.6; O2SAT 90
[2023-07-14] MEDS: metFORMIN XR 500MG TAB *GLUCOPHAGE XR PO SCH (17:07)
[2023-07-14] MEDS: CETIRIZINE (ZyrTEC) 10 MG TAB PO SCH (20:06)
[2023-07-14] MEDS: FERROUS SULFATE 325MG TAB PO SCH (20:07)
[2023-07-14] MEDS: ATORVASTATIN 20 MG TAB PO SCH (20:07)
[2023-07-14] MEDS: amLODIPine 5 MG TAB PO SCH (20:07)
[2023-07-15] MEDS: LEVOTHYROXINE 88MCG TABLET (0.088 MG) PO SCH (05:54)
[2023-07-15 06:36] VITALS: BP 123/65; TEMP 97.5; O2SAT 98
[2023-07-15] MEDS: INSULIN LISPRO (NovoLOG) PER UNIT SC SCH ×4 (06:38→19:58)
[2023-07-15] MEDS: GABAPENTIN 300 MG CAP PO SCH ×2 (07:43→20:06)
[2023-07-15] MEDS: LEVEMIR (INSULIN DETEMIR) 1 UNITS/0.01ML SC SCH ×2 (07:43→20:05)
[2023-07-15] MEDS: LITHIUM CARBONATE 450 MG **CR** TAB PO SCH ×2 (07:44→20:06)
[2023-07-15] MEDS: OMEPRAZOLE 20MG CAP PO SCH (07:44)
[2023-07-15] MEDS: SUCRALFATE 1 GM TAB PO SCH ×2 (07:44→17:06)
[2023-07-15] MEDS: POTASSIUM CHLORIDE 10MEQ SR TABLET PO SCH ×2 (07:45→20:06)
[2023-07-15] MEDS: atenoloL 50 MG TAB PO SCH (07:45)
[2023-07-15] MEDS: DULoxetine 30MG CAPSULE (CYMBALTA) PO SCH (07:45)
[2023-07-15] MEDS: FOLIC ACID 1MG TAB PO SCH (07:45)
[2023-07-15] MEDS: MELOXICAM (MOBIC) 7.5 MG TAB PO SCH (07:46)
[2023-07-15] MEDS: BENZTROPINE 1 MG TAB PO SCH ×3 (07:46→20:06)
[2023-07-15] MEDS: FUROSEMIDE 20 MG TAB PO SCH (07:46)
[2023-07-15] MEDS: methocarbamoL 500 MG TAB PO SCH ×2 (07:47→20:05)
[2023-07-15] MEDS: NICOTINE 21MG/24HR 1 EA TRANSDERMAL TD SCH (07:47)
[2023-07-15] MEDS: diphenhydrAMINE 25MG CAP PO PRN (12:15)
[2023-07-15] MEDS: SODIUM CHLORIDE NASAL 0.65% SPRAY BTL (OCEAN) SCH ×2 (12:25→20:04)
[2023-07-15 14:30] VITALS: BP 123/65; TEMP 97.5; O2SAT 98
[2023-07-15 16:11] VITALS: BP 116/64; TEMP 98.9; O2SAT 94
[2023-07-15] MEDS: metFORMIN XR 500MG TAB *GLUCOPHAGE XR PO SCH (17:06)
[2023-07-15] MEDS: FERROUS SULFATE 325MG TAB PO SCH (20:06)
[2023-07-15] MEDS: ATORVASTATIN 20 MG TAB PO SCH (20:06)
[2023-07-15] MEDS: amLODIPine 5 MG TAB PO SCH (20:06)
[2023-07-15] MEDS: CETIRIZINE (ZyrTEC) 10 MG TAB PO SCH (20:06)
[2023-07-15] MEDS ORDERED: NYSTATIN OINTMENT 15 GM TOP SCH (21:00)
[2023-07-15] MEDS: traZODone 50 MG TAB PO PRN (21:13)
[2023-07-15] MEDS: MICONAZOLE-7 VAGINAL 2% CREAM 47.7GM PV SCH (22:41)
[2023-07-16] MEDS: ACETAMINOPHEN TAB 650MG DOSE (2X325MG) PO PRN (03:09)
[2023-07-16] MEDS: LEVOTHYROXINE 88MCG TABLET (0.088 MG) PO SCH (05:57)
[2023-07-16 06:42] VITALS: BP 153/85; TEMP 97.3; O2SAT 95
[2023-07-16] MEDS: INSULIN LISPRO (NovoLOG) PER UNIT SC SCH ×4 (07:08→19:57)
[2023-07-16] MEDS: OMEPRAZOLE 20MG CAP PO SCH (08:06)
[2023-07-16] MEDS: SUCRALFATE 1 GM TAB PO SCH ×2 (08:06→17:25)
[2023-07-16] MEDS: FOLIC ACID 1MG TAB PO SCH (08:07)
[2023-07-16] MEDS: POTASSIUM CHLORIDE 10MEQ SR TABLET PO SCH ×2 (08:07→20:07)
[2023-07-16] MEDS: GABAPENTIN 300 MG CAP PO SCH ×2 (08:07→20:06)
[2023-07-16] MEDS: methocarbamoL 500 MG TAB PO SCH ×2 (08:07→20:06)
[2023-07-16] MEDS: DULoxetine 30MG CAPSULE (CYMBALTA) PO SCH (08:08)
[2023-07-16] MEDS: BENZTROPINE 1 MG TAB PO SCH ×3 (08:08→20:06)
[2023-07-16] MEDS: LITHIUM CARBONATE 450 MG **CR** TAB PO SCH ×2 (08:08→20:06)
[2023-07-16] MEDS: MELOXICAM (MOBIC) 7.5 MG TAB PO SCH (08:09)
[2023-07-16] MEDS: LEVEMIR (INSULIN DETEMIR) 1 UNITS/0.01ML SC SCH ×2 (08:10→20:08)
[2023-07-16] MEDS: SODIUM CHLORIDE NASAL 0.65% SPRAY BTL (OCEAN) SCH ×2 (08:12→20:10)
[2023-07-16] MEDS: atenoloL 50 MG TAB PO SCH (08:16)
[2023-07-16] MEDS: NICOTINE 21MG/24HR 1 EA TRANSDERMAL TD SCH (08:16)
[2023-07-16] MEDS: diphenhydrAMINE 25MG CAP PO PRN ×2 (12:13→20:07)
[2023-07-16] MEDS ORDERED: INFLUENZA QUADRIVALENT PF VACCINE 0.5ML SYRINGE IM.IMMUN ONE (16:00)
[2023-07-16 16:28] VITALS: BP 157/79; TEMP 98.6; O2SAT 95
[2023-07-16] MEDS: metFORMIN XR 500MG TAB *GLUCOPHAGE XR PO SCH (17:25)
[2023-07-16] MEDS: FERROUS SULFATE 325MG TAB PO SCH (20:06)
[2023-07-16] MEDS: amLODIPine 5 MG TAB PO SCH (20:07)
[2023-07-16] MEDS: CETIRIZINE (ZyrTEC) 10 MG TAB PO SCH (20:07)
[2023-07-16] MEDS: traZODone 50 MG TAB PO PRN (20:07)
[2023-07-16] MEDS: ATORVASTATIN 20 MG TAB PO SCH (20:07)
[2023-07-16] MEDS: MICONAZOLE-7 VAGINAL 2% CREAM 47.7GM PV SCH (21:25)
[2023-07-17] MEDS: LEVOTHYROXINE 88MCG TABLET (0.088 MG) PO SCH (05:33)
[2023-07-17 06:32] VITALS: BP 140/64; TEMP 97.6; O2SAT 97
[2023-07-17] MEDS: INSULIN LISPRO (NovoLOG) PER UNIT SC SCH ×4 (07:03→20:16)
[2023-07-17 08:32] VITALS: BP 132/65
[2023-07-17] MEDS: FOLIC ACID 1MG TAB PO SCH (08:32)
[2023-07-17] MEDS: methocarbamoL 500 MG TAB PO SCH ×2 (08:32→20:15)
[2023-07-17] MEDS: SUCRALFATE 1 GM TAB PO SCH ×2 (08:32→17:01)
[2023-07-17] MEDS: GABAPENTIN 300 MG CAP PO SCH ×2 (08:32→20:15)
[2023-07-17] MEDS: MELOXICAM (MOBIC) 7.5 MG TAB PO SCH (08:32)
[2023-07-17] MEDS: OMEPRAZOLE 20MG CAP PO SCH (08:33)
[2023-07-17] MEDS: LITHIUM CARBONATE 450 MG **CR** TAB PO SCH ×2 (08:33→20:15)
[2023-07-17] MEDS: BENZTROPINE 1 MG TAB PO SCH ×3 (08:33→20:15)
[2023-07-17] MEDS: DULoxetine 30MG CAPSULE (CYMBALTA) PO SCH (08:33)
[2023-07-17] MEDS: FUROSEMIDE 20 MG TAB PO SCH (08:33)
[2023-07-17] MEDS: POTASSIUM CHLORIDE 10MEQ SR TABLET PO SCH ×2 (08:34→20:15)
[2023-07-17] MEDS: SODIUM CHLORIDE NASAL 0.65% SPRAY BTL (OCEAN) SCH ×2 (08:34→20:16)
[2023-07-17] MEDS: LEVEMIR (INSULIN DETEMIR) 1 UNITS/0.01ML SC SCH ×2 (08:34→20:16)
[2023-07-17] MEDS: diphenhydrAMINE 25MG CAP PO PRN (08:37)
[2023-07-17] MEDS: atenoloL 50 MG TAB PO SCH (09:46)
[2023-07-17] MEDS ORDERED: OLANZapine ORAL DISINTEGRATING TAB 5MG PO STA (11:34)
[2023-07-17] MEDS ORDERED: OLANZapine ORAL DISINTEGRATING TAB 5MG PO PRN (12:50)
[2023-07-17 14:30] LABS: BASO # 0.1 10^3/uL (0.0-0.2); BASO % 0.6 % (0.0-1.0); EOS # 0.3 10^3/uL (0.0-0.5); EOS % 3.5 % (0.0-3.0); HEMATOCRIT 38.3 % (36.0-47.0); HEMOGLOBIN 12.4 g/dl (12.0-15.5); LYMPH # 1.8 10^3/uL (1.5-5.0); LYMPH % 18.8 % (24.0-44.0); MEAN CORPUSCULAR HGB CONC 32.4 g/dl (32.0-36.5); MEAN CORPUSCULAR VOLUME 89.7 fl (80.0-96.0); MONO # 0.8 10^3/uL (0.0-0.8); MONO % 7.9 % (2.0-8.0); NEUTROPHILS # 6.7 10^3/uL (1.5-8.5); NEUTROPHILS % 68.7 % (36.0-66.0); PLATELET COUNT, AUTOMATED 339 10^3/uL (150-450); RED BLOOD COUNT 4.27 10^6/uL (4.00-5.40); WHITE BLOOD COUNT 9.8 10^3/uL (4.0-10.0)
[2023-07-17 14:59] LABS: THYROID STIMULATING HORMONE 3.709 uIU/ML (0.55-4.78)
[2023-07-17 15:02] LABS: FREE T4 1.07 NG/DL (0.89-1.76)
[2023-07-17] MEDS ORDERED: PALIPERIDONE PAL 234MG/1.5ML INJ (INVEGA)(FREE PSY INPT ONLY) IM ONE (16:00)
[2023-07-17 16:40] LABS: C REACTIVE PROTEIN QUANTITATIV 0.5 MG/DL (<1.0)
[2023-07-17 16:48] LABS: PROCALCITONIN 0.04 ng/ml
[2023-07-17] MEDS: metFORMIN XR 500MG TAB *GLUCOPHAGE XR PO SCH (17:02)
[2023-07-17 18:01] VITALS: BP 124/56; TEMP 97.7; O2SAT 97
[2023-07-17] MEDS: traZODone 50 MG TAB PO PRN (20:14)
[2023-07-17] MEDS: ATORVASTATIN 20 MG TAB PO SCH (20:14)
[2023-07-17] MEDS: amLODIPine 5 MG TAB PO SCH (20:15)
[2023-07-17] MEDS: FERROUS SULFATE 325MG TAB PO SCH (20:15)
[2023-07-17] MEDS: CETIRIZINE (ZyrTEC) 10 MG TAB PO SCH (20:15)
[2023-07-17] MEDS: MICONAZOLE-7 VAGINAL 2% CREAM 47.7GM PV SCH (20:40)
[2023-07-18] MEDS: LEVOTHYROXINE 88MCG TABLET (0.088 MG) PO SCH (05:33)
[2023-07-18 06:24] VITALS: BP 141/77; TEMP 97.8; O2SAT 100
[2023-07-18] MEDS: LEVEMIR (INSULIN DETEMIR) 1 UNITS/0.01ML SC SCH ×2 (08:02→20:10)
[2023-07-18] MEDS: DULoxetine 30MG CAPSULE (CYMBALTA) PO SCH (08:03)
[2023-07-18] MEDS: SUCRALFATE 1 GM TAB PO SCH ×2 (08:03→17:41)
[2023-07-18] MEDS: INSULIN LISPRO (NovoLOG) PER UNIT SC SCH ×4 (08:03→20:10)
[2023-07-18] MEDS: methocarbamoL 500 MG TAB PO SCH ×2 (08:03→20:05)
[2023-07-18] MEDS: OMEPRAZOLE 20MG CAP PO SCH (08:03)
[2023-07-18] MEDS: BENZTROPINE 1 MG TAB PO SCH ×3 (08:04→20:06)
[2023-07-18] MEDS: GABAPENTIN 300 MG CAP PO SCH ×2 (08:04→20:06)
[2023-07-18] MEDS: MELOXICAM (MOBIC) 7.5 MG TAB PO SCH (08:04)
[2023-07-18] MEDS: LITHIUM CARBONATE 450 MG **CR** TAB PO SCH ×2 (08:04→20:06)
[2023-07-18] MEDS: FOLIC ACID 1MG TAB PO SCH (08:04)
[2023-07-18] MEDS: POTASSIUM CHLORIDE 10MEQ SR TABLET PO SCH ×2 (08:04→20:06)
[2023-07-18] MEDS: ACETAMINOPHEN TAB 650MG DOSE (2X325MG) PO PRN (08:11)
[2023-07-18] MEDS: SODIUM CHLORIDE NASAL 0.65% SPRAY BTL (OCEAN) SCH ×2 (08:11→20:05)
[2023-07-18] MEDS: atenoloL 50 MG TAB PO SCH (10:49)
[2023-07-18] MEDS: diphenhydrAMINE 25MG CAP PO PRN (12:05)
[2023-07-18 15:46] VITALS: BP 143/84; TEMP 98.8; O2SAT 97
[2023-07-18] MEDS: metFORMIN XR 500MG TAB *GLUCOPHAGE XR PO SCH (17:41)
[2023-07-18] MEDS: MICONAZOLE-7 VAGINAL 2% CREAM 47.7GM PV SCH (20:04)
[2023-07-18] MEDS: ATORVASTATIN 20 MG TAB PO SCH (20:05)
[2023-07-18] MEDS: CETIRIZINE (ZyrTEC) 10 MG TAB PO SCH (20:05)
[2023-07-18] MEDS: traZODone 50 MG TAB PO PRN (20:05)
[2023-07-18] MEDS: FERROUS SULFATE 325MG TAB PO SCH (20:06)
[2023-07-18] MEDS: amLODIPine 5 MG TAB PO SCH (20:08)
[2023-07-19] MEDS: LEVOTHYROXINE 88MCG TABLET (0.088 MG) PO SCH (05:39)
[2023-07-19 06:39] VITALS: BP 127/64; TEMP 98.4; O2SAT 95
[2023-07-19] MEDS: SUCRALFATE 1 GM TAB PO SCH ×2 (07:19→17:15)
[2023-07-19] MEDS: INSULIN LISPRO (NovoLOG) PER UNIT SC SCH ×4 (07:20→21:00)
[2023-07-19] MEDS: OMEPRAZOLE 20MG CAP PO SCH (08:23)
[2023-07-19] MEDS: FUROSEMIDE 20 MG TAB PO SCH (08:23)
[2023-07-19] MEDS: MELOXICAM (MOBIC) 7.5 MG TAB PO SCH (08:23)
[2023-07-19] MEDS: methocarbamoL 500 MG TAB PO SCH ×2 (08:23→21:18)
[2023-07-19] MEDS: POTASSIUM CHLORIDE 10MEQ SR TABLET PO SCH ×2 (08:24→21:19)
[2023-07-19] MEDS: BENZTROPINE 1 MG TAB PO SCH ×3 (08:24→21:20)
[2023-07-19] MEDS: GABAPENTIN 300 MG CAP PO SCH ×2 (08:24→21:20)
[2023-07-19] MEDS: atenoloL 50 MG TAB PO SCH (08:24)
[2023-07-19] MEDS: FOLIC ACID 1MG TAB PO SCH (08:24)
[2023-07-19] MEDS: LITHIUM CARBONATE 450 MG **CR** TAB PO SCH ×2 (08:24→21:18)
[2023-07-19] MEDS: DULoxetine 30MG CAPSULE (CYMBALTA) PO SCH (08:24)
[2023-07-19] MEDS: LEVEMIR (INSULIN DETEMIR) 1 UNITS/0.01ML SC SCH ×2 (08:25→21:21)
[2023-07-19] MEDS: SODIUM CHLORIDE NASAL 0.65% SPRAY BTL (OCEAN) SCH ×2 (08:30→21:17)
[2023-07-19 09:57] VITALS: BP 130/70; TEMP 98.4; O2SAT 95
[2023-07-19 16:25] VITALS: BP 140/80; TEMP 96.4; O2SAT 92
[2023-07-19] MEDS: metFORMIN XR 500MG TAB *GLUCOPHAGE XR PO SCH (17:16)
[2023-07-19] MEDS: MICONAZOLE-7 VAGINAL 2% CREAM 47.7GM PV SCH (21:17)
[2023-07-19] MEDS: FERROUS SULFATE 325MG TAB PO SCH (21:18)
[2023-07-19] MEDS: CETIRIZINE (ZyrTEC) 10 MG TAB PO SCH (21:18)
[2023-07-19] MEDS: OLANZapine 2.5MG TABLET PO SCH (21:18)
[2023-07-19] MEDS: ATORVASTATIN 20 MG TAB PO SCH (21:19)
[2023-07-19] MEDS: amLODIPine 5 MG TAB PO SCH (21:20)
[2023-07-20] MEDS: LEVOTHYROXINE 88MCG TABLET (0.088 MG) PO SCH (05:38)
[2023-07-20 06:25] VITALS: BP 149/74; TEMP 98.2; O2SAT 96
[2023-07-20] MEDS: SUCRALFATE 1 GM TAB PO SCH ×2 (07:23→17:27)
[2023-07-20] MEDS: INSULIN LISPRO (NovoLOG) PER UNIT SC SCH ×4 (07:23→20:08)
[2023-07-20] MEDS: methocarbamoL 500 MG TAB PO SCH ×2 (08:00→20:14)
[2023-07-20] MEDS: LITHIUM CARBONATE 450 MG **CR** TAB PO SCH ×2 (08:00→20:14)
[2023-07-20] MEDS: GABAPENTIN 300 MG CAP PO SCH ×2 (08:00→20:14)
[2023-07-20] MEDS: BENZTROPINE 1 MG TAB PO SCH ×3 (08:00→20:14)
[2023-07-20] MEDS: FOLIC ACID 1MG TAB PO SCH (08:00)
[2023-07-20] MEDS: MELOXICAM (MOBIC) 7.5 MG TAB PO SCH (08:00)
[2023-07-20] MEDS: DULoxetine 30MG CAPSULE (CYMBALTA) PO SCH (08:00)
[2023-07-20] MEDS: LEVEMIR (INSULIN DETEMIR) 1 UNITS/0.01ML SC SCH ×2 (08:01→20:22)
[2023-07-20] MEDS: OMEPRAZOLE 20MG CAP PO SCH (08:01)
[2023-07-20] MEDS: POTASSIUM CHLORIDE 10MEQ SR TABLET PO SCH ×2 (08:01→20:14)
[2023-07-20] MEDS: atenoloL 50 MG TAB PO SCH (08:01)
[2023-07-20] MEDS: SODIUM CHLORIDE NASAL 0.65% SPRAY BTL (OCEAN) SCH ×2 (08:36→20:18)
[2023-07-20] MEDS ORDERED: PALIPERIDONE PAL 234MG/1.5ML INJ (INVEGA)(FREE PSY INPT ONLY) IM SCH (09:00)
[2023-07-20] MEDS ORDERED: POLYVINYL ALCOHOL OPHTH SOLN 15ML (LIQUITEARS) OU PRN (13:05)
[2023-07-20 15:51] VITALS: BP 130/64; TEMP 97.3; O2SAT 95
[2023-07-20] MEDS: metFORMIN XR 500MG TAB *GLUCOPHAGE XR PO SCH (17:28)
[2023-07-20] MEDS: traZODone 50 MG TAB PO PRN (20:12)
[2023-07-20] MEDS: FERROUS SULFATE 325MG TAB PO SCH (20:13)
[2023-07-20] MEDS: ATORVASTATIN 20 MG TAB PO SCH (20:13)
[2023-07-20] MEDS: CETIRIZINE (ZyrTEC) 10 MG TAB PO SCH (20:13)
[2023-07-20] MEDS: OLANZapine 2.5MG TABLET PO SCH (20:14)
[2023-07-20] MEDS: amLODIPine 5 MG TAB PO SCH (20:16)
[2023-07-20] MEDS: MICONAZOLE-7 VAGINAL 2% CREAM 47.7GM PV SCH (21:38)
[2023-07-21 06:02] VITALS: BP 135/60; TEMP 98.6; O2SAT 95
[2023-07-21] MEDS: LEVOTHYROXINE 88MCG TABLET (0.088 MG) PO SCH (06:11)
[2023-07-21] MEDS: INSULIN LISPRO (NovoLOG) PER UNIT SC SCH ×4 (08:04→20:15)
[2023-07-21] MEDS: SUCRALFATE 1 GM TAB PO SCH ×2 (08:04→17:03)
[2023-07-21] MEDS: MELOXICAM (MOBIC) 7.5 MG TAB PO SCH (08:26)
[2023-07-21] MEDS: methocarbamoL 500 MG TAB PO SCH ×2 (08:26→20:14)
[2023-07-21] MEDS: atenoloL 50 MG TAB PO SCH (08:26)
[2023-07-21] MEDS: LITHIUM CARBONATE 450 MG **CR** TAB PO SCH ×2 (08:26→20:14)
[2023-07-21] MEDS: BENZTROPINE 1 MG TAB PO SCH ×3 (08:27→20:15)
[2023-07-21] MEDS: FUROSEMIDE 20 MG TAB PO SCH (08:27)
[2023-07-21] MEDS: GABAPENTIN 300 MG CAP PO SCH ×2 (08:27→20:15)
[2023-07-21] MEDS: OMEPRAZOLE 20MG CAP PO SCH (08:28)
[2023-07-21] MEDS: POTASSIUM CHLORIDE 10MEQ SR TABLET PO SCH ×2 (08:28→20:14)
[2023-07-21] MEDS: FOLIC ACID 1MG TAB PO SCH (08:28)
[2023-07-21] MEDS: DULoxetine 30MG CAPSULE (CYMBALTA) PO SCH (08:28)
[2023-07-21] MEDS: SODIUM CHLORIDE NASAL 0.65% SPRAY BTL (OCEAN) SCH ×2 (08:29→20:14)
[2023-07-21] MEDS: LEVEMIR (INSULIN DETEMIR) 1 UNITS/0.01ML SC SCH ×2 (08:30→20:19)
[2023-07-21] MEDS: ACETAMINOPHEN TAB 650MG DOSE (2X325MG) PO PRN (16:51)
[2023-07-21] MEDS: metFORMIN XR 500MG TAB *GLUCOPHAGE XR PO SCH (17:03)
[2023-07-21 18:36] VITALS: BP 131/65; TEMP 99.2
[2023-07-21] MEDS: FERROUS SULFATE 325MG TAB PO SCH (20:14)
[2023-07-21] MEDS: amLODIPine 5 MG TAB PO SCH (20:14)
[2023-07-21] MEDS: CETIRIZINE (ZyrTEC) 10 MG TAB PO SCH (20:15)
[2023-07-21] MEDS: OLANZapine 2.5MG TABLET PO SCH (20:15)
[2023-07-21] MEDS: ATORVASTATIN 20 MG TAB PO SCH (20:15)
[2023-07-21] MEDS: MICONAZOLE-7 VAGINAL 2% CREAM 47.7GM PV SCH (20:15)
[2023-07-22] MEDS: LEVOTHYROXINE 88MCG TABLET (0.088 MG) PO SCH (05:55)
[2023-07-22 06:01] VITALS: BP 140/88; TEMP 98.2; O2SAT 95
[2023-07-22] MEDS: INSULIN LISPRO (NovoLOG) PER UNIT SC SCH ×4 (07:03→21:00)
[2023-07-22] MEDS: atenoloL 50 MG TAB PO SCH (08:33)
[2023-07-22] MEDS: SODIUM CHLORIDE NASAL 0.65% SPRAY BTL (OCEAN) SCH ×2 (08:33→21:22)
[2023-07-22] MEDS: MELOXICAM (MOBIC) 7.5 MG TAB PO SCH (08:33)
[2023-07-22] MEDS: methocarbamoL 500 MG TAB PO SCH ×2 (08:34→21:19)
[2023-07-22] MEDS: LITHIUM CARBONATE 450 MG **CR** TAB PO SCH ×2 (08:34→21:19)
[2023-07-22] MEDS: SUCRALFATE 1 GM TAB PO SCH ×2 (08:34→17:11)
[2023-07-22] MEDS: BENZTROPINE 1 MG TAB PO SCH ×3 (08:34→21:19)
[2023-07-22] MEDS: DULoxetine 30MG CAPSULE (CYMBALTA) PO SCH (08:35)
[2023-07-22] MEDS: GABAPENTIN 300 MG CAP PO SCH ×2 (08:35→21:20)
[2023-07-22] MEDS: OMEPRAZOLE 20MG CAP PO SCH (08:36)
[2023-07-22] MEDS: POTASSIUM CHLORIDE 10MEQ SR TABLET PO SCH ×2 (08:36→21:20)
[2023-07-22] MEDS: FOLIC ACID 1MG TAB PO SCH (08:36)
[2023-07-22] MEDS: LEVEMIR (INSULIN DETEMIR) 1 UNITS/0.01ML SC SCH ×2 (08:37→21:18)
[2023-07-22] MEDS: MICONAZOLE 2 % POWDER (DESENEX) TOP SCH ×2 (09:00→21:21)
[2023-07-22] MEDS: metFORMIN XR 500MG TAB *GLUCOPHAGE XR PO SCH (17:11)
[2023-07-22 18:00] VITALS: BP 144/84; TEMP 99.1
[2023-07-22 21:10] VITALS: BP 135/73
[2023-07-22] MEDS: traZODone 50 MG TAB PO PRN (21:18)
[2023-07-22] MEDS: CETIRIZINE (ZyrTEC) 10 MG TAB PO SCH (21:18)
[2023-07-22] MEDS: ATORVASTATIN 20 MG TAB PO SCH (21:19)
[2023-07-22] MEDS: FERROUS SULFATE 325MG TAB PO SCH (21:19)
[2023-07-22] MEDS: OLANZapine 2.5MG TABLET PO SCH (21:19)
[2023-07-22] MEDS: amLODIPine 5 MG TAB PO SCH (21:19)
[2023-07-23] MEDS: LEVOTHYROXINE 88MCG TABLET (0.088 MG) PO SCH (05:30)
[2023-07-23 06:47] VITALS: BP 158/75; TEMP 97.9; O2SAT 95
[2023-07-23] MEDS: INSULIN LISPRO (NovoLOG) PER UNIT SC SCH ×2 (07:04→12:03)
[2023-07-23] MEDS: SUCRALFATE 1 GM TAB PO SCH (07:31)
[2023-07-23] MEDS: LEVEMIR (INSULIN DETEMIR) 1 UNITS/0.01ML SC SCH (08:17)
[2023-07-23] MEDS: MICONAZOLE 2 % POWDER (DESENEX) TOP SCH (08:19)
[2023-07-23] MEDS: SODIUM CHLORIDE NASAL 0.65% SPRAY BTL (OCEAN) SCH (08:19)
[2023-07-23] MEDS: methocarbamoL 500 MG TAB PO SCH (08:20)
[2023-07-23] MEDS: MELOXICAM (MOBIC) 7.5 MG TAB PO SCH (08:21)
[2023-07-23] MEDS: GABAPENTIN 300 MG CAP PO SCH (08:21)
[2023-07-23] MEDS: LITHIUM CARBONATE 450 MG **CR** TAB PO SCH (08:21)
[2023-07-23] MEDS: FUROSEMIDE 20 MG TAB PO SCH (08:21)
[2023-07-23] MEDS: DULoxetine 30MG CAPSULE (CYMBALTA) PO SCH (08:21)
[2023-07-23] MEDS: BENZTROPINE 1 MG TAB PO SCH (08:21)
[2023-07-23] MEDS: OMEPRAZOLE 20MG CAP PO SCH (08:21)
[2023-07-23 08:22] VITALS: BP 132/70
[2023-07-23] MEDS: atenoloL 50 MG TAB PO SCH (08:22)
[2023-07-23] MEDS: POTASSIUM CHLORIDE 10MEQ SR TABLET PO SCH (08:22)
[2023-07-23] MEDS: FOLIC ACID 1MG TAB PO SCH (08:22)
[2023-07-23] MEDS ORDERED: MICR2POW TOP (09:07)
[2023-07-23] MEDS ORDERED: OLAN2.5T25 PO (09:07)
[2023-07-23] MEDS ORDERED: TRAZ-252 PO (09:07)
== END 2023-07-23 13:54 | disposition home or self-care (01) | DRG 750 ==
LOC: M ED 05:04 → M ED INP 12:44 → M PSY 14:51
PROVIDERS: ADMIT Student in an Organized Health Care Education/Training Program; ATTEND Student in an Organized Health Care Education/Training Program
DX: F25.0 Schizoaffective disorder, bipolar type (principal); E11.51 Type 2 diabetes mellitus with diabetic peripheral angiopathy without gangrene; R45.851 Suicidal ideations; Z88.2 Allergy status to sulfonamides; Z88.8 Allergy status to other drugs, medicaments and biological substances; Z79.899 Other long term (current) drug therapy; Z79.4 Long term (current) use of insulin; K21.9 Gastro-esophageal reflux disease without esophagitis; E03.9 Hypothyroidism, unspecified; I10 Essential (primary) hypertension

== ENCOUNTER → 2023-08-21 | Outpatient (CLI) | payer OTHER ==
[~2023-08-21] MED LIST changes: +CEFD1CAP9; -CEFD300C42; -EFFE150C2 PO; +EFFE150C3 PO; -EFFE37.5 PO; +EFFE37.52 PO; -FLUT50SP17; +FLUTISP; +METF-838 PO; +MICR2POW TOP; +OLAN2.5T25 PO
== END ==
LOC: M PLALAB 15:14
PROVIDERS: ATTEND Psychiatry & Neurology Psychiatry
DX: F25.0 Schizoaffective disorder, bipolar type (principal); F43.10 Post-traumatic stress disorder, unspecified; F60.3 Borderline personality disorder; F60.7 Dependent personality disorder; G24.01 Drug induced subacute dyskinesia; Z65.8 Other specified problems related to psychosocial circumstances

== ENCOUNTER 2023-08-26 13:48 | Emergency (ER) | payer MEDICAID, OTHER ==
[~2023-08-26] VITALS: Ht 170.2 cm; Wt 121.8 kg
[2023-08-26 13:48] VITALS: BP 138/74; TEMP 98.7; O2SAT 96
== END 2023-08-26 14:48 | disposition home or self-care (01) ==
LOC: M ED 13:48
DX: F32.A Depression, unspecified (principal); K21.9 Gastro-esophageal reflux disease without esophagitis; I10 Essential (primary) hypertension; F43.10 Post-traumatic stress disorder, unspecified; E03.9 Hypothyroidism, unspecified; E11.9 Type 2 diabetes mellitus without complications; Z88.2 Allergy status to sulfonamides; Z88.1 Allergy status to other antibiotic agents; Z88.8 Allergy status to other drugs, medicaments and biological substances; Z79.02 Long term (current) use of antithrombotics/antiplatelets; Z79.891 Long term (current) use of opiate analgesic; Z79.4 Long term (current) use of insulin; Z79.83 Long term (current) use of bisphosphonates; Z79.899 Other long term (current) drug therapy

== ENCOUNTER → 2023-09-07 | Outpatient (REF) | payer OTHER | LOC: M SFHCWAGY 17:11 | PROVIDERS: ATTEND Nurse Practitioner Family | DX: Z12.4 Encounter for screening for malignant neoplasm of cervix (principal) ==

== ENCOUNTER → 2023-09-07 | Outpatient (CLI) | payer OTHER | LOC: M WHC 14:21 | PROVIDERS: ATTEND Nurse Practitioner Family | DX: Z12.31 Encounter for screening mammogram for malignant neoplasm of breast (principal) ==

== ENCOUNTER → 2023-09-18 | Outpatient (CLI) | payer MEDICAID, OTHER | LOC: M PLALAB 12:37 | PROVIDERS: ATTEND Psychiatry & Neurology Psychiatry | DX: F60.3 Borderline personality disorder (principal); F43.10 Post-traumatic stress disorder, unspecified; F25.0 Schizoaffective disorder, bipolar type; F60.7 Dependent personality disorder; G24.01 Drug induced subacute dyskinesia; Z65.8 Other specified problems related to psychosocial circumstances ==

== ENCOUNTER → 2023-10-15 | Outpatient (CLI) | payer OTHER | LOC: M PLALAB 13:43 | PROVIDERS: ATTEND Psychiatry & Neurology Psychiatry | DX: F25.0 Schizoaffective disorder, bipolar type (principal); F43.10 Post-traumatic stress disorder, unspecified; F60.3 Borderline personality disorder; F60.7 Dependent personality disorder; G24.01 Drug induced subacute dyskinesia; Z65.8 Other specified problems related to psychosocial circumstances ==

== ENCOUNTER 2023-11-08 09:22 | Emergency (ER) | payer MEDICAID, OTHER ==
[~2023-11-08] VITALS: Ht 170.2 cm; Wt 128.5 kg
[2023-11-08] MEDS: NS 1,000 ML IV SCH ×2 (09:35→10:15)
[2023-11-08 10:00] LABS: BASO % 0.3 % (0.0-1.0); EOS # 0.2 10^3/uL (0.0-0.5); EOS % 1.6 % (0.0-3.0); HEMATOCRIT 45.2 % (36.0-47.0); HEMOGLOBIN 14.4 g/dl (12.0-15.5); LYMPH # 1.1 10^3/uL (1.5-5.0); LYMPH % 11.7 % (24.0-44.0); MEAN CORPUSCULAR HEMOGLOBIN 27.5 pg (27.0-33.0); MEAN CORPUSCULAR HGB CONC 31.9 g/dl (32.0-36.5); MEAN CORPUSCULAR VOLUME 86.3 fl (80.0-96.0); MONO # 0.8 10^3/uL (0.0-0.8); MONO % 8.2 % (2.0-8.0); NEUTROPHILS # 7.2 10^3/uL (1.5-8.5); PLATELET COUNT, AUTOMATED 293 10^3/uL (150-450); RED BLOOD COUNT 5.24 10^6/uL (4.00-5.40); WHITE BLOOD COUNT 9.2 10^3/uL (4.0-10.0)
[2023-11-08] MEDS: MORPHINE 2 MG/ML 1ML VIAL IV PRN (10:18)
[2023-11-08 10:31] LABS: LIPASE 22 U/L (12-53)
[2023-11-08 10:33] LABS: ALBUMIN 3.3 G/DL (3.2-5.2); ALKALINE PHOSPHATASE 105 U/L (46-116); ALT/SGPT 21 U/L (7.0-40); AST/SGOT 11 U/L (<34); BILIRUBIN,DIRECT 0.3 MG/DL (<0.4); BILIRUBIN,TOTAL 0.7 MG/DL (0.3-1.2); BLOOD UREA NITROGEN 9 MG/DL (9-23); CALCIUM LEVEL 8.9 MG/DL (8.5-10.1); CARBON DIOXIDE LEVEL 28 MMOL/L (20-31); CHLORIDE LEVEL 104 MMOL/L (98-107); CREATININE FOR GFR 0.53 MG/DL (0.55-1.30); GLOMERULAR FILTRATION RATE > 60.0 (>51); GLUCOSE, FASTING 236 MG/DL (60-100); POTASSIUM SERUM 3.7 MMOL/L (3.5-5.1); SODIUM LEVEL 138 MMOL/L (136-145); TOTAL PROTEIN 6.4 G/DL (5.7-8.2)
[2023-11-08] MEDS ORDERED: ISOVUE-370 76% 100ML VIAL As Ordered ONE (12:19)
[2023-11-08 14:54] VITALS: BP 104/57; TEMP 98.6; O2SAT 99
== END 2023-11-08 15:00 | disposition home or self-care (01) ==
LOC: M ED 09:22 → EDBD 09:22 → M ED 15:00
DX: R10.9 Unspecified abdominal pain (principal); I44.4 Left anterior fascicular block; I25.2 Old myocardial infarction; I10 Essential (primary) hypertension; E11.9 Type 2 diabetes mellitus without complications; E78.5 Hyperlipidemia, unspecified; E03.9 Hypothyroidism, unspecified; K21.9 Gastro-esophageal reflux disease without esophagitis; Z88.2 Allergy status to sulfonamides; Z88.1 Allergy status to other antibiotic agents; Z88.8 Allergy status to other drugs, medicaments and biological substances; Z79.02 Long term (current) use of antithrombotics/antiplatelets; Z79.4 Long term (current) use of insulin; Z79.83 Long term (current) use of bisphosphonates; Z79.891 Long term (current) use of opiate analgesic; Z79.899 Other long term (current) drug therapy
CPT/HCPCS: 74177; 80048; 80076; 83605; 83690; 85025; 93005; 93041; 96361; 96374; 99285; Q9967

== ENCOUNTER → 2023-12-14 | Outpatient (REF) | payer OTHER | LOC: M SFHCCLAY 09:29 | PROVIDERS: ATTEND Nurse Practitioner Family | DX: R32 Unspecified urinary incontinence (principal); N89.8 Other specified noninflammatory disorders of vagina ==

== ENCOUNTER → 2024-01-04 | Outpatient (REF) | payer OTHER ==
[~2024-01-04] MED LIST changes: +NYST100084 TOP; -NYST10OI TOP
== END ==
LOC: M SFHCCLAY 11:43
PROVIDERS: ATTEND Nurse Practitioner Family
DX: R32 Unspecified urinary incontinence (principal)

== ENCOUNTER → 2024-01-10 | Outpatient (CLI) | payer OTHER ==
[2024-01-10 13:28] LABS: BASO # 0.1 10^3/uL (0.0-0.2); BASO % 0.7 % (0.0-1.0); EOS # 0.3 10^3/uL (0.0-0.5); EOS % 3.3 % (0.0-3.0); HEMATOCRIT 44.9 % (36.0-47.0); LYMPH # 1.9 10^3/uL (1.5-5.0); LYMPH % 22.3 % (24.0-44.0); MEAN CORPUSCULAR HEMOGLOBIN 28.1 pg (27.0-33.0); MEAN CORPUSCULAR HGB CONC 31.2 g/dl (32.0-36.5); MEAN CORPUSCULAR VOLUME 90.2 fl (80.0-96.0); MONO # 0.5 10^3/uL (0.0-0.8); MONO % 5.8 % (2.0-8.0); NEUTROPHILS # 5.7 10^3/uL (1.5-8.5); NEUTROPHILS % 67.4 % (36.0-66.0); PLATELET COUNT, AUTOMATED 321 10^3/uL (150-450); RED BLOOD COUNT 4.98 10^6/uL (4.00-5.40); WHITE BLOOD COUNT 8.5 10^3/uL (4.0-10.0)
[2024-01-10 13:49] LABS: APPEARANCE, URINE HAZY (CLEAR); BACTERIA, URINE AUTO NEGATIVE (NEGATIVE); BILIRUBIN, URINE AUTO NEGATIVE (NEGATIVE); BLOOD, URINE BLOOD 3+ (NEGATIVE); COLOR, URINE RED (YELLOW); GLUCOSE, URINE (UA) AUTO 3+ mg/dL (NEGATIVE); KETONE, URINE AUTO NEGATIVE (NEGATIVE); LEUKOCYTE ESTERASE, URINE AUTO TRACE (NEGATIVE); MUCUS, URINE SMALL (NEGATIVE); NITRITE, URINE AUTO NEGATIVE (NEGATIVE); PROTEIN, URINE AUTO 1+ mg/dL (NEGATIVE); RBC, URINE AUTO TNTC /HPF (0-3); SPECIFIC GRAVITY URINE AUTO 1.014 (1.002-1.035); SQUAMOUS EPITHELIAL CELL UR AU 2 /HPF (0-6); UROBILINOGEN, URINE AUTO 0.2 mg/dL (0.0-2.0); WBC, URINE AUTO 4 /HPF (0-3)
[2024-01-10 14:16] LABS: ALBUMIN 3.4 G/DL (3.2-5.2); ALKALINE PHOSPHATASE 106 U/L (46-116); ALT/SGPT 21 U/L (7.0-40); AST/SGOT 15 U/L (<34); BILIRUBIN,TOTAL 0.5 MG/DL (0.3-1.2); BLOOD UREA NITROGEN 9 MG/DL (9-23); CALCIUM LEVEL 9.5 MG/DL (8.5-10.1); CARBON DIOXIDE LEVEL 30 MMOL/L (20-31); CHLORIDE LEVEL 102 MMOL/L (98-107); CREATININE FOR GFR 0.62 MG/DL (0.55-1.30); GLOMERULAR FILTRATION RATE > 60.0 (>51); GLUCOSE, FASTING 358 MG/DL (60-100); POTASSIUM SERUM 4.4 MMOL/L (3.5-5.1); SODIUM LEVEL 138 MMOL/L (136-145); TOTAL PROTEIN 6.3 G/DL (5.7-8.2)
== END ==
LOC: M PLALAB 09:51
PROVIDERS: ATTEND Nurse Practitioner Family
DX: R06.02 Shortness of breath (principal)

== ENCOUNTER → 2024-01-15 | Outpatient (CLI) | payer OTHER ==
[~2024-01-15] MED LIST changes: +ISOVUE-370 76% 100ML VIAL ONE
== END ==
LOC: M PLAIMG 10:25
PROVIDERS: ATTEND Nurse Practitioner Family
DX: R06.02 Shortness of breath (principal); K76.0 Fatty (change of) liver, not elsewhere classified

== ENCOUNTER → 2024-04-22 | Outpatient (CLI) | payer OTHER ==
[~2024-04-22] MED LIST changes: -ISOVUE-370 76% 100ML VIAL ONE; -OLAN20TA14 PO; +OLAN20TA53 PO; +ONDA-282 PO; -ONDA4TAB6 PO; -POTA10CA60 PO; +POTA10CA70 PO
[2024-04-22 15:41] LABS: HEMATOCRIT 40.3 % (36.0-47.0); HEMOGLOBIN 12.9 g/dl (12.0-15.5); MEAN CORPUSCULAR HEMOGLOBIN 28.9 pg (27.0-33.0); MEAN CORPUSCULAR VOLUME 90.4 fl (80.0-96.0); PLATELET COUNT, AUTOMATED 331 10^3/uL (150-450); RED BLOOD COUNT 4.46 10^6/uL (4.00-5.40); WHITE BLOOD COUNT 9.1 10^3/uL (4.0-10.0)
[2024-04-22 15:57] LABS: BLOOD UREA NITROGEN 14 MG/DL (9-23); CALCIUM LEVEL 9.3 MG/DL (8.5-10.1); CARBON DIOXIDE LEVEL 31 MMOL/L (20-31); CHLORIDE LEVEL 105 MMOL/L (98-107); CHOLESTEROL LEVEL 132 MG/DL (<200); CHOLESTEROL RISK RATIO 3.35 (<5); GLOMERULAR FILTRATION RATE > 60.0 (>51); GLUCOSE, FASTING 256 MG/DL (60-100); HDL CHOLESTEROL 39.4 MG/DL (>40); LDL CHOLESTEROL 68.2 MG/DL (<100); NON-HDL-C 92.6 MG/DL; POTASSIUM SERUM 4.5 MMOL/L (3.5-5.1); SODIUM LEVEL 141 MMOL/L (136-145); TRIGLYCERIDES LEVEL 122 MG/DL (<150)
[2024-04-22 15:59] LABS: LITHIUM LEVEL 0.54 MMOL/L (1.0-1.20)
[2024-04-22 16:09] LABS: HCG, SERUM QUALITATIVE NEGATIVE (NEGATIVE)
== END ==
LOC: M PLALAB 12:56
PROVIDERS: ATTEND Psychiatry & Neurology Psychiatry
DX: F25.0 Schizoaffective disorder, bipolar type (principal); F43.10 Post-traumatic stress disorder, unspecified; F60.3 Borderline personality disorder; F60.7 Dependent personality disorder; G24.01 Drug induced subacute dyskinesia; Z65.8 Other specified problems related to psychosocial circumstances

== ENCOUNTER → 2024-04-24 | Outpatient (REF) | payer OTHER ==
[2024-04-24 17:22] LABS: APPEARANCE, URINE HAZY (CLEAR); BACTERIA, URINE AUTO NEGATIVE (NEGATIVE); BILIRUBIN, URINE AUTO NEGATIVE (NEGATIVE); BLOOD, URINE BLOOD NEGATIVE (NEGATIVE); COLOR, URINE YELLOW (YELLOW); GLUCOSE, URINE (UA) AUTO 2+ mg/dL (NEGATIVE); KETONE, URINE AUTO NEGATIVE (NEGATIVE); LEUKOCYTE ESTERASE, URINE AUTO 1+ (NEGATIVE); MUCUS, URINE SMALL (NEGATIVE); NITRITE, URINE AUTO NEGATIVE (NEGATIVE); PROTEIN, URINE AUTO NEGATIVE (NEGATIVE); RBC, URINE AUTO 1 /HPF (0-3); SQUAMOUS EPITHELIAL CELL UR AU 6 /HPF (0-6); WBC, URINE AUTO 5 /HPF (0-3)
== END ==
LOC: M SFHCCLAY 16:26
PROVIDERS: ATTEND Physician Assistant
DX: R30.0 Dysuria (principal)

== ENCOUNTER → 2024-04-28 | Outpatient (CLI) | payer OTHER | LOC: M RAD 09:02 | PROVIDERS: ATTEND Physician Assistant | DX: R10.9 Unspecified abdominal pain (principal) ==

== ENCOUNTER → 2024-06-10 | Outpatient (CLI) | payer MEDICAID, OTHER ==
[2024-06-10 10:25] LABS: HEMOGLOBIN A1c 7.7 % (4.0-6.0)
[2024-06-10 10:44] LABS: ALBUMIN 3.5 G/DL (3.2-5.2); ALKALINE PHOSPHATASE 104 U/L (46-116); ALT/SGPT 30 U/L (7.0-40); AST/SGOT 31 U/L (<34); BILIRUBIN,TOTAL 0.6 MG/DL (0.3-1.2); BLOOD UREA NITROGEN 8 MG/DL (9-23); CALCIUM LEVEL 9.2 MG/DL (8.5-10.1); CARBON DIOXIDE LEVEL 34 MMOL/L (20-31); CHLORIDE LEVEL 106 MMOL/L (98-107); CHOLESTEROL LEVEL 125 MG/DL (<200); CREATININE FOR GFR 0.57 MG/DL (0.55-1.30); GLOMERULAR FILTRATION RATE > 60.0 (>51); GLUCOSE, FASTING 186 MG/DL (60-100); HDL CHOLESTEROL 35.7 MG/DL (>40); LDL CHOLESTEROL 69.7 MG/DL (<100); NON-HDL-C 89.3 MG/DL; POTASSIUM SERUM 4.3 MMOL/L (3.5-5.1); SODIUM LEVEL 144 MMOL/L (136-145); TOTAL PROTEIN 6.7 G/DL (5.7-8.2); TRIGLYCERIDES LEVEL 98 MG/DL (<150)
[2024-06-10 10:47] LABS: FREE T4 1.07 NG/DL (0.89-1.76)
== END ==
LOC: M PLALAB 08:52
PROVIDERS: ATTEND Nurse Practitioner Family
DX: E11.65 Type 2 diabetes mellitus with hyperglycemia (principal); I10 Essential (primary) hypertension; E03.9 Hypothyroidism, unspecified

== ENCOUNTER 2024-08-02 09:39 | Emergency (ER) | payer MEDICAID, OTHER ==
[~2024-08-02] VITALS: Ht 170.2 cm; Wt 137.9 kg
[~2024-08-02 09:39] MED LIST changes: +GABA-1172 PO; -GABA-282 PO; -GEOD40CA13 PO; +LITH450T11 PO; -LITH45TASA PO; +NYST1POW3 TOP; -NYST1POW9 TOP; -OLAN2.5T25 PO; +OLAN2.5T53 PO; -ZIPR40CA11 PO; +ZIPR40CA21 PO; +ZIPR40CA27 PO
[2024-08-02] MEDS ORDERED: CLON1TAB8 (10:03)
[2024-08-02] MEDS ORDERED: OLAN1TAB16 (10:03)
[2024-08-02] MEDS ORDERED: PROP20TA72 (10:03)
[2024-08-02] MEDS ORDERED: TIRZ5PEN (10:03)
[2024-08-02] MEDS ORDERED: CIPRHCOTIC OTIC (10:31)
[2024-08-02] MEDS ORDERED: ACET-907 PO (10:33)
[2024-08-02] MEDS: CIPROFLOXACIN HC OTIC SUSPENSION AS ONE (10:46)
[2024-08-02 10:53] VITALS: BP 139/75; TEMP 98.9; O2SAT 97
[2024-08-02] MEDS: ACETAMINOPHEN 325 MG TAB PO ONE (10:53)
== END 2024-08-02 10:56 | disposition home or self-care (01) ==
LOC: M ED 09:39
DX: H66.92 Otitis media, unspecified, left ear (principal); J45.909 Unspecified asthma, uncomplicated; K58.9 Irritable bowel syndrome, unspecified; F31.9 Bipolar disorder, unspecified; I10 Essential (primary) hypertension; Z79.02 Long term (current) use of antithrombotics/antiplatelets; Z79.4 Long term (current) use of insulin; Z79.899 Other long term (current) drug therapy; Z88.2 Allergy status to sulfonamides; Z88.1 Allergy status to other antibiotic agents; Z88.8 Allergy status to other drugs, medicaments and biological substances

== ENCOUNTER 2024-09-12 18:20 | Emergency (ER) | payer MEDICAID, OTHER ==
[~2024-09-12 18:20] MED LIST changes: +ACET-907 PO; +CIPRHCOTIC OTIC; +CLON1TAB8; -LORA2TA PO; +LORA2TAB15 PO; +OLAN1TAB16; +PROP20TA72; +TIRZ5PEN
[2024-09-12] MEDS: PINK BISMUTH SUSP 524MG/30ML ORAL SYRINGE PO STA (19:33)
[2024-09-12] MEDS: LORazepam 1 MG TAB PO STA (19:58)
[2024-09-12 21:06] VITALS: BP 134/69; TEMP 98; O2SAT 97
== END 2024-09-12 21:09 | disposition home or self-care (01) ==
LOC: M ED 18:20
DX: F41.1 Generalized anxiety disorder (principal); K58.9 Irritable bowel syndrome, unspecified; E11.9 Type 2 diabetes mellitus without complications; I10 Essential (primary) hypertension; F31.9 Bipolar disorder, unspecified; Z88.1 Allergy status to other antibiotic agents; Z88.2 Allergy status to sulfonamides; Z88.8 Allergy status to other drugs, medicaments and biological substances; Z79.899 Other long term (current) drug therapy

== ENCOUNTER → 2024-09-22 | Outpatient (REF) | payer OTHER ==
[2024-09-22 18:55] LABS: THYROID STIMULATING HORMONE 3.626 uIU/ML (0.55-4.78)
[2024-09-22 18:58] LABS: FREE T4 1.28 NG/DL (0.89-1.76)
[2024-09-22 19:00] LABS: ALBUMIN 3.8 G/DL (3.2-5.2); ALKALINE PHOSPHATASE 94 U/L (35-104); ALT/SGPT 32 U/L (7.0-40); AST/SGOT 26 U/L (<34); BILIRUBIN,TOTAL 0.7 MG/DL (0.3-1.2); BLOOD UREA NITROGEN 9 MG/DL (9-23); CARBON DIOXIDE LEVEL 31 MMOL/L (20-31); CHLORIDE LEVEL 104 MMOL/L (98-107); CHOLESTEROL LEVEL 126 MG/DL (<200); CHOLESTEROL RISK RATIO 3.03 (<5); CREATININE FOR GFR 0.64 MG/DL (0.55-1.30); GLOMERULAR FILTRATION RATE > 60.0 (>51); GLUCOSE, FASTING 123 MG/DL (60-100); HDL CHOLESTEROL 41.5 MG/DL (>40); LDL CHOLESTEROL 66.7 MG/DL (<100); NON-HDL-C 84.5 MG/DL; SODIUM LEVEL 142 MMOL/L (136-145); TRIGLYCERIDES LEVEL 89 MG/DL (<150)
[2024-09-22 19:24] LABS: HEMOGLOBIN A1c 7.4 % (4.0-6.0)
== END ==
LOC: M SFHCCLAY 10:46
PROVIDERS: ATTEND Nurse Practitioner Family
DX: E11.65 Type 2 diabetes mellitus with hyperglycemia (principal)

== ENCOUNTER 2024-10-03 05:36 | Emergency (ER) | payer MEDICAID, OTHER ==
[~2024-10-03] VITALS: Ht 170.2 cm; Wt 137.7 kg
[2024-10-03 05:41] VITALS: BP 118/73; TEMP 98.3; O2SAT 92
[2024-10-03] MEDS ORDERED: AMOX500C PO (06:46)
[2024-10-03] MEDS: CEPHALEXIN 500 MG CAP PO ONE (06:47)
[2024-10-03] MEDS ORDERED: APAP325T4 PO (07:15)
== END 2024-10-03 07:07 | disposition home or self-care (01) ==
LOC: M ED 05:36
DX: J02.0 Streptococcal pharyngitis (principal); U07.1 COVID-19; I10 Essential (primary) hypertension; E11.9 Type 2 diabetes mellitus without complications; E03.9 Hypothyroidism, unspecified; F31.9 Bipolar disorder, unspecified; Z88.1 Allergy status to other antibiotic agents; Z88.2 Allergy status to sulfonamides; Z88.8 Allergy status to other drugs, medicaments and biological substances; Z79.2 Long term (current) use of antibiotics; Z79.02 Long term (current) use of antithrombotics/antiplatelets; Z79.4 Long term (current) use of insulin; Z79.899 Other long term (current) drug therapy

== ENCOUNTER → 2024-11-14 | Outpatient (REF) | payer OTHER, MEDICAID ==
[~2024-11-14] MED LIST changes: +AMOX500C PO; +APAP325T4 PO
[2024-11-14 14:25] LABS: APPEARANCE, URINE HAZY (CLEAR); BACTERIA, URINE AUTO NEGATIVE (NEGATIVE); BILIRUBIN, URINE AUTO NEGATIVE (NEGATIVE); BLOOD, URINE BLOOD 1+ (NEGATIVE); COLOR, URINE YELLOW (YELLOW); GLUCOSE, URINE (UA) AUTO NEGATIVE (NEGATIVE); KETONE, URINE AUTO NEGATIVE (NEGATIVE); LEUKOCYTE ESTERASE, URINE AUTO TRACE (NEGATIVE); MUCUS, URINE SMALL (NEGATIVE); NITRITE, URINE AUTO NEGATIVE (NEGATIVE); PROTEIN, URINE AUTO NEGATIVE (NEGATIVE); RBC, URINE AUTO 2 /HPF (0-3); SPECIFIC GRAVITY URINE AUTO 1.015 (1.002-1.035); SQUAMOUS EPITHELIAL CELL UR AU 3 /HPF (0-6); UROBILINOGEN, URINE AUTO 0.2 mg/dL (0.0-2.0); WBC, URINE AUTO 1 /HPF (0-3)
== END ==
LOC: M LAB REF 12:33
PROVIDERS: ATTEND Physician Assistant Medical
DX: N39.0 Urinary tract infection, site not specified (principal)

== ENCOUNTER → 2024-11-25 | Outpatient (REF) | payer OTHER, MEDICAID ==
[2024-11-25 15:27] LABS: APPEARANCE, URINE CLEAR (CLEAR); BACTERIA, URINE AUTO NEGATIVE (NEGATIVE); BILIRUBIN, URINE AUTO NEGATIVE (NEGATIVE); BLOOD, URINE BLOOD NEGATIVE (NEGATIVE); COLOR, URINE YELLOW (YELLOW); GLUCOSE, URINE (UA) AUTO NEGATIVE (NEGATIVE); KETONE, URINE AUTO NEGATIVE (NEGATIVE); LEUKOCYTE ESTERASE, URINE AUTO NEGATIVE (NEGATIVE); MUCUS, URINE SMALL (NEGATIVE); NITRITE, URINE AUTO NEGATIVE (NEGATIVE); PROTEIN, URINE AUTO NEGATIVE (NEGATIVE); RBC, URINE AUTO 1 /HPF (0-3); SPECIFIC GRAVITY URINE AUTO 1.013 (1.002-1.035); SQUAMOUS EPITHELIAL CELL UR AU 0 /HPF (0-6); UROBILINOGEN, URINE AUTO 0.2 mg/dL (0.0-2.0); WBC, URINE AUTO 1 /HPF (0-3)
== END ==
LOC: M LAB REF 14:52
PROVIDERS: ATTEND Physician Assistant
DX: N39.0 Urinary tract infection, site not specified (principal)

== ENCOUNTER → 2025-01-29 | Outpatient (REF) | payer OTHER ==
[~2025-01-29] MED LIST changes: -LITH450T11 PO; +LITH450T17 PO
== END ==
LOC: M SFHCCLAY 14:10
PROVIDERS: ATTEND Nurse Practitioner Family
DX: Z53.20 Procedure and treatment not carried out because of patient's decision for unspecified reasons (principal)

== ENCOUNTER → 2025-01-30 | Outpatient (CLI) | payer OTHER ==
[2025-01-30 13:22] LABS: ALBUMIN 3.7 G/DL (3.2-5.2); ALKALINE PHOSPHATASE 82 U/L (35-104); ALT/SGPT 21 U/L (7.0-40); AST/SGOT 21 U/L (<34); BILIRUBIN,TOTAL 0.4 MG/DL (0.3-1.2); BLOOD UREA NITROGEN 10 MG/DL (9-23); CALCIUM LEVEL 9.9 MG/DL (8.5-10.1); CARBON DIOXIDE LEVEL 28 MMOL/L (20-31); CHLORIDE LEVEL 106 MMOL/L (98-107); CHOLESTEROL LEVEL 124 MG/DL (<200); CHOLESTEROL RISK RATIO 3.22 (<5); CREATININE FOR GFR 0.64 MG/DL (0.55-1.30); GLOMERULAR FILTRATION RATE > 90.0 (>51); GLUCOSE, FASTING 191 MG/DL (60-100); HDL CHOLESTEROL 38.4 MG/DL (>40); LDL CHOLESTEROL 70.8 MG/DL (<100); NON-HDL-C 85.6 MG/DL; POTASSIUM SERUM 4.3 MMOL/L (3.5-5.1); SODIUM LEVEL 142 MMOL/L (136-145); TRIGLYCERIDES LEVEL 74 MG/DL (<150)
[2025-01-30 13:45] LABS: HEMOGLOBIN A1c 5.9 % (4.0-6.0)
== END ==
LOC: M PLALAB 09:33
PROVIDERS: ATTEND Nurse Practitioner Family
DX: E11.65 Type 2 diabetes mellitus with hyperglycemia (principal)

== ENCOUNTER 2025-05-30 09:24 | Emergency (ER) | payer MEDICAID, OTHER ==
[~2025-05-30] VITALS: Ht 170.2 cm; Wt 128.8 kg
[~2025-05-30 09:24] MED LIST changes: -DEPA250T32 PO; +DIVA-65 PO; -IBUP1TAB6 PO; +SFHIBU600 PO
[2025-05-30 09:27] VITALS: BP 138/77; TEMP 99; O2SAT 92
[2025-05-30] MEDS: ACETAMINOPHEN 325 MG TAB PO ONE (10:45)
== END 2025-05-30 10:53 | disposition home or self-care (01) ==
LOC: M ED 09:24
DX: T80.90XA Unspecified complication following infusion and therapeutic injection, initial encounter (principal); M25.511 Pain in right shoulder; E11.9 Type 2 diabetes mellitus without complications; I10 Essential (primary) hypertension; K58.9 Irritable bowel syndrome, unspecified; F31.9 Bipolar disorder, unspecified; G56.00 Carpal tunnel syndrome, unspecified upper limb; Z88.2 Allergy status to sulfonamides; Z88.8 Allergy status to other drugs, medicaments and biological substances; Z79.1 Long term (current) use of non-steroidal anti-inflammatories (NSAID); Z79.2 Long term (current) use of antibiotics; Z79.02 Long term (current) use of antithrombotics/antiplatelets; Z79.4 Long term (current) use of insulin; Z79.899 Other long term (current) drug therapy

== ENCOUNTER 2025-07-16 03:04 | Emergency (ER) | payer MEDICAID, OTHER ==
[~2025-07-16] VITALS: Ht 170.2 cm; Wt 130.4 kg
[2025-07-16] MEDS: ONDANSETRON 4MG ORAL DISINTEGRATING TAB PO ONE (04:21)
[2025-07-16] MEDS ORDERED: ONDA-282 PO (05:19)
[2025-07-16 05:53] VITALS: BP 122/70; TEMP 97.5; O2SAT 97
== END 2025-07-16 05:55 | disposition home or self-care (01) ==
LOC: M ED 03:04
DX: R11.0 Nausea (principal); F32.9 Major depressive disorder, single episode, unspecified; F41.9 Anxiety disorder, unspecified; E11.9 Type 2 diabetes mellitus without complications; Z88.2 Allergy status to sulfonamides; Z88.8 Allergy status to other drugs, medicaments and biological substances; Z79.1 Long term (current) use of non-steroidal anti-inflammatories (NSAID); Z79.2 Long term (current) use of antibiotics; Z79.899 Other long term (current) drug therapy; Z79.4 Long term (current) use of insulin; Z79.02 Long term (current) use of antithrombotics/antiplatelets

== ENCOUNTER → 2025-08-07 | Outpatient (CLI) | payer OTHER ==
[2025-08-07 11:44] LABS: ESTIMATED AVERAGE GLUCOSE 120.0 MG/DL (60-110)
[2025-08-07 11:48] LABS: ALT/SGPT 27 U/L (7.0-40); AST/SGOT 20 U/L (<34); CALCIUM LEVEL 9.4 MG/DL (8.5-10.1); CARBON DIOXIDE LEVEL 32 MMOL/L (20-31); CHLORIDE LEVEL 106 MMOL/L (98-107); CHOLESTEROL LEVEL 104 MG/DL (<200); CHOLESTEROL RISK RATIO 2.78 (<5); CREATININE FOR GFR 0.59 MG/DL (0.55-1.30); FREE T4 1.23 NG/DL (0.89-1.76); GLOMERULAR FILTRATION RATE > 90.0 (>51); LDL CHOLESTEROL 55.9 MG/DL (<100); NON-HDL-C 66.7 MG/DL; POTASSIUM SERUM 4.3 MMOL/L (3.5-5.1); SODIUM LEVEL 147 MMOL/L (136-145); TRIGLYCERIDES LEVEL 54 MG/DL (<150)
== END ==
LOC: M PLALAB 09:03
PROVIDERS: ATTEND Nurse Practitioner Family
DX: F31.9 Bipolar disorder, unspecified (principal); E03.9 Hypothyroidism, unspecified; E11.65 Type 2 diabetes mellitus with hyperglycemia; I10 Essential (primary) hypertension

== ENCOUNTER → 2025-08-17 | Outpatient (REF) | payer OTHER, MEDICAID ==
[~2025-08-17] MED LIST changes: +POTA-232 PO; -POTA10TA67 PO
== END ==
LOC: M SFHCCLAY 12:07
PROVIDERS: ATTEND Nurse Practitioner Family
DX: R35.0 Frequency of micturition (principal)